=== PATIENT | female | born 1985 | race Caucasian/White ===

== ENCOUNTER 2017-05-09 02:58 | Emergency (ER) | payer OTHER, SELFPAY ==
[2017-05-09 03:00] VITALS: BP 100/75; PULSE 122; RESP 17; TEMP 36.4; O2SAT 98; BMI 20.7
--- NOTE | 2017-05-09 03:11 | ED.VISSUMM ---
- ER Visit Summary Date of Service: 05/09/17 Chief Complaint: Nausea, dehydration History of Present Illness: The patient is a 31 F with history of Crohn's disease presents to the emergency department 3 days of nausea, decreased p.o. intake, and 3 episodes of vomiting starting tonight. The patient does have a history of Crohn's disease. She follows with GI at [facility]. She is on Stelara for her Crohn's. She states that over the past 3 days, she has had some worsening nausea and decreased oral intake. Tonight, she began to have some emesis. She thrown up approximately 3 times. There is been no blood in the emesis. She has still been having output in her ostomy. She states this feels very different than when she has had obstruction before. She denies any fevers but does admit to some chills. She states that she took Zofran at home with little relief. She denies any recent change in medication. She states she has not been on steroids for some time. Physical Examination: Vital signs reviewed General: Well-nourished, well-developed Head: Normocephalic, atraumatic Eyes: Pupils equal and reactive, extraocular muscles intact Neck, supple, no lymphadenopathy Heart: Regular rate and rhythm Respiratory: No distress, clear bilaterally Abdomen: Soft, nontender, nondistended, no peritoneal signs ostomy site intact with output in the bag Back: Nontender Extremities: Nontender, no edema, no cords Skin: Normal color no rash Neuro: Alert and oriented, no focal or lateralizing deficits Test Results: Labs do show contraction with mild dehydration. was negative. Emergency Department Course and Treatment: The patient is a history of Crohn's disease but really has no significant abdominal tenderness. She states it does not feel like when she has obstruction before. IV was established. Patient analgesics and antiemetics. Her labs do show contraction, but really no acute abnormality. In review with the patient, she was concerned because she thinks she may have had a miscarriage. She had a positive home test 7 days ago and then started with some mild vaginal bleeding. She took another test and was negative. She states that she had to be admitted to the hospital before because of retained products. I did obtain a serum quant which was negative. The patient again has no abdominal tenderness. Really do not feel that this was a spurious home positive test, but she has a negative test here. With fluids and antiemetics her symptoms are markedly improved. Her heart rate is down to normal limits. I do feel that this patient is safe for outpatient therapy. I will prescribe her Phenergan at her request. She is counseled on concerning symptoms and reasons to return. The patient will be discharged home. Treatment Plan: [] Disposition: Discharge Impression:. Dehydration 2. Nausea and vomiting This note was generated with [employer] dictation software. It may contain incorrect words, spelling, and punctuation that were not noted in review of the chart prior to signing ED Disposition - Plan for ED Patient: Disposition: Home or Assisted Living Chief Complaint: Nausea/Vomiting Instructions: ED Nausea Vomiting Prescriptions: ProMETHAzine [Phenergan] 25 mg PO Q6H PRN PRN #10 tab PRN Reason: Nausea Referrals: Care Physician,No Primary [Primary Care Provider] -
[2017-05-09] MEDS: 0.9% Normal Saline 1,000 ML 1000 ML IV (03:12)
[2017-05-09 03:34] LABS: Hematocrit 49.1 % (37-47); Hemoglobin 17.5 g/dl (12.0-15.0); Mean Corp Hgb Conc 35.6 g/gl (32-36); Mean Corpuscular Hgb 29.1 pg (27.0-32.0); Mean Corpuscular Volume 81.6 fL (81-99); Mean Platelet Vol. 9.1 fl (6.2-12.0); Platelet Count 475 K/mm3 (150-450); RBC Distribution Width SD 44.3 fl (35.1-43.9); Red Blood Count 6.02 M/mm3 (4.2-5.4); White Blood Count 11.7 K/mm3 (4.4-11.0)
[2017-05-09 03:35] LABS: Differential Indicated MANUAL DIFF; POSITIVE COUNT YES; POSITIVE DIFFERENTIAL NO; POSITIVE MORPHOLOGY YES
[2017-05-09 03:39] LABS: ALB/GLOB Ratio 0.9 RATIO (0.9-2.4); AST(SGOT) 35 U/L (15-37); Alanine Aminotransfer ALT/SGPT 45 U/L (13-56); Albumin, Serum 4.1 g/dL (3.2-5.0); Alkaline Phosphatase 189 U/L (45-117); Anion Gap 13 (5-15); BUN 20 mg/dL (7-18); BUN/Creat Ratio 13.6 RATIO (10-20); Chloride 98 mmol/L (98-107); Creatinine, Serum 1.47 mg/dL (0.55-1.02); EST Glomerular Filtration Rate 44 mL/min (>60); Est Glom Filt Rate - Afr Amer 54 mL/min (>60); Estimated Creatinine Clearance 38.52 ml/min; Globulin 4.5 g/dL (2.2-4.2); Glucose 120 mg/dL (74-106); Potassium 3.9 mmol/L (3.5-5.1); Protein, Total 8.6 g/dL (6.4-8.2); Sodium Level 130 mmol/L (136-145)
[2017-05-09 03:40] LABS: Bacteria 0 SEEN /hpf (None Seen); Mucous, Urine 0 SEEN /hpf (<or=2+)
[2017-05-09 03:53] LABS: Color, Urine Yellow (Yellow); Glucose, Dipstick Normal (Normal); Ketone-Dipstick Negative (Negative); Leukocyte Esterase-Dipstick 500 /ul (Negative); Nitrite-Dipstick Negative (Negative); Occult Blood-Urine 250 /ul (Negative); Protein-Dipstick 100 mg/dl (Negative); Urine Bilirubin Dipstick Negative (Negative); Urine Clarity Sl. Cloudy (Clear); Urine Urobilinogen Normal (Normal)
[2017-05-09 03:59] LABS: Red Blood Cells-Urine 0-5 SEEN /hpf (0-5); Squamous Epithelial Cells - UA > 100 SEEN /hpf (5-10); White Blood Cells 10-25 SEEN /hpf (0-5)
[2017-05-09] MEDS: Lactated Ringers 1,000 ML 999 ML IV (04:03)
[2017-05-09 04:19] LABS: Lymphocyte 23 % (19-41); Metamyelocyte 1 % (0-1); Monocyte 12 % (0-10); Neutrophil-Band 2 % (0-5); Neutrophil-Segmented 62 % (47-70); Total Cells Counted 100 (MANUAL DIFF)
[2017-05-09 04:20] LABS: Platelet Estimate SLT INC (ADEQ); Platelet Morphology LARGE; Red Cell Morphology NORM C+C NORMAL (NORM C&C)
[2017-05-09 04:22] LABS: Absolute Lymphocyte Count 2.69 X10^3/ul (0.83-4.51); Absolute Neutrophil Count 7.5 X10^3/uL (2.0-7.7)
[2017-05-09 04:44] LABS: hCG Titer Quant., Serum < 1 mIU/mL (<9 non-preg)
[2017-05-09 05:18] VITALS: BP 97/56; PULSE 104; RESP 17; O2SAT 100
[2017-05-09 06:12] VITALS: BP 121/64; PULSE 73; RESP 15; O2SAT 97
[2017-05-09 15:28] LABS: Pathologist Review Reviewed
== END 2017-05-09 06:13 | disposition home or self-care (01) ==
PROVIDERS: Emergency Provider Emergency Medicine
DX: E86.0 Dehydration (principal); R11.2 Nausea with vomiting, unspecified; K50.90 Crohn's disease, unspecified, without complications
CPT/HCPCS: 80053; 81001; 84702; 85025; 96361; 96374; 96375; 99283; J7030; J7120

== ENCOUNTER 2018-07-22 17:11 | Observation (INO) | payer OTHER, SELFPAY ==
[2018-07-22 17:13] VITALS: BP 86/60; PULSE 125; RESP 18; TEMP 36.4; O2SAT 98; BMI 21.6
--- NOTE | 2018-07-22 19:06 | ED.DCSUM_ITS ---
- ER Visit Summary Date of Service: 07/22/18 Chief Complaint: Nausea and vomiting History of Present Illness: The patient is a 32 F presenting with nausea and vomiting. Patient states she began having a sore throat on . She then developed nausea and vomiting. She states when she starts to get dehydrated she usually requires IV fluids. She has a history of Crohn's disease and has an ostomy in place. She denies increased output from her ostomy. Denies blood in her stool. Denies abdominal pain. She has had subjective fever. She started taking leftover amoxicillin when her throat started hurting. Denies other complaints. Physical Examination: Vitals are stable. Blood pressure 86/60, heart rate 125. Patient is afebrile. Alert no acute distress. HEENT exam dry mucous membranes Neck is supple. Lungs are clear and equal bilaterally. Heart is regular and tachycardic Abdomen is soft nontender nondistended. No guarding or rebound. Ostomy Extremities are unremarkable. Skin is warm and dry. No focal neurologic deficit. Remainder of exam is unremarkable. Emergency Department Course and Treatment: Patient states her normal blood pressure ranges in the 80s. Patient was given IV fluids, Zofran. CBC shows white count 11.7. Chemistries show sodium 125, BUN 33, creatinine 2.12. Lactic acid 2.7. Rapid strep is negative. Repeat blood pressure is 111/60, heart rate 112. Will discuss with hospitalist for admission. Disposition: Admission Impression: Nausea, vomiting, dehydration, ELPIDIO, hyponatremia This note was generated with [employer] dictation software. It may contain incorrect words, spelling, and punctuation that were not noted in review of the chart prior to signing ED Disposition - Plan for ED Patient: Referrals: Care Physician,No Primary [Primary Care Provider] -
[2018-07-22 19:11] VITALS: BP 111/60; PULSE 112; RESP 16; O2SAT 100
[2018-07-22 19:19] LABS: Anion Gap 9 (5-15); BUN 33 mg/dL (7-18); BUN/Creat Ratio 15.6 RATIO (10-20); Calcium,Total 9.4 mg/dL (8.5-10.1); Chloride 96 mmol/L (98-107); Creatinine, Serum 2.12 mg/dL (0.55-1.02); EST Glomerular Filtration Rate 29 mL/min (>60); Est Glom Filt Rate - Afr Amer 35 mL/min (>60); Estimated Creatinine Clearance 27.53 ml/min; Glucose 132 mg/dL (74-106); Potassium 3.9 mmol/L (3.5-5.1); Sodium Level 125 mmol/L (136-145)
[2018-07-22] MEDS: 0.9% Normal Saline 1,000 ML 1000 ML IV (19:31)
[2018-07-22] MEDS: Ondansetron 4 MG/2 ML Vial IV (19:31)
[2018-07-22 19:49] LABS: Differential Indicated MANUAL DIFF; Hematocrit 52.9 % (37-47); Mean Corp Hgb Conc 35.5 g/gl (32-36); Mean Corpuscular Hgb 28.4 pg (27.0-32.0); Mean Corpuscular Volume 79.8 fL (81-99); Mean Platelet Vol. 9.3 fl (6.2-12.0); POSITIVE COUNT YES; POSITIVE DIFFERENTIAL NO; POSITIVE MORPHOLOGY YES; Platelet Count 370 K/mm3 (150-450); RBC Distribution Width CV 14.3 % (11.6-14.6); Red Blood Count 6.63 M/mm3 (4.2-5.4); White Blood Count 11.7 K/mm3 (4.4-11.0)
[2018-07-22 19:50] LABS: Hemoglobin 18.8 g/dl (12.0-15.0)
--- NOTE | 2018-07-22 19:52 | ED.RN ---
notified Dr. Ruiz of b 18.8
[2018-07-22 19:59] LABS: Internal QC Validated? YES +Cl - CLEAR BKGD; Pregnancy, Serum, hCG Quali. NEGATIVE Negative
[2018-07-22 20:08] LABS: Basophil 2 % (0-1); Lymphocyte 24 % (19-41); Monocyte 11 % (0-10); Neutrophil-Segmented 63 % (47-70); Total Cells Counted 100 (MANUAL DIFF)
[2018-07-22 20:11] LABS: Lactic Acid 2.7 mmol/L (0.4-2.0); Platelet Estimate ADEQUATE (ADEQ); Red Cell Morphology NORM C+C NORMAL (NORM C&C)
--- NOTE | 2018-07-22 20:24 | ED.RN ---
DR AGEE NOTIFIED OF LACTIC RESULTS
[2018-07-22 20:44] LABS: Mucous, Urine 0 SEEN /hpf (<or=2+); Red Blood Cells-Urine 0 SEEN /hpf (0-5)
--- NOTE | 2018-07-22 20:44 | PCM.HP.STD ---
Problem List (1) Acute gastroenteritis Status: Acute (2) Hyponatremia Status: Acute History of Present Illness Date of Admission: 07/22/18 Chief Complaint: nausea and vomitting The patient is a 32 year old F with a significant history of Crohn's disease status post colostomy who presented to the emergency department with nausea and vomiting x1 day. Her symptoms started with sore throat a day before admission. She took some leftover Antibiotics at home. Patient reported that typically she gets IV fluids for dehydration under similar situations and is discharged home. However because of her low sodium patient was admitted. Past Medical History Medical History: Medical History (Last Updated 07/22/18 @ 21:06 by Samuel Alaniz MD) Crohn's disease K50.90 Allergies vancomycin Allergy (Verified 07/22/18 17:12) Anaphylaxis HUMARA Allergy (Uncoded 07/22/18 17:12) Other Home Medications: Ambulatory Orders Medication Instructions Recorded proMETHazine tablet [Phenergan] 25 mg PO Q6H PRN PRN #10 tab 05/09/17 Prednisone 3 mg PO DAILY 07/22/18 Ustekinumab [Stelara] 90 mg SC PRN PRN 07/22/18 Surgical History: appendectomy, cholecystectomy, colectomy Lives: Spouse/ Significant Other Smoking Status: Never smoker Alcohol: Rare - *Family History Maternal History Items: - - Denies any maternal or paternal medical history. Paternal History Items: - - Denies any maternal or paternal medical history. Review of Systems Constitutional: Denies: Chills, Fever, Weight Change HEENT: Denies: Head Aches, Sinus Congestion, Sinus Drainage Cardiovascular: Denies: Chest Pain, Palpitations Respiratory: Denies: Cough, Shortness of breath at rest, Sputum production Gastrointestinal: Reports: Nausea, Vomiting. Denies: Abdominal Pain Genitourinary: Denies: Dysuria Musculoskeletal: Denies: Joint Pain, Joint Tenderness Skin: Denies: Rash, Wounds Neurological: Denies: Numbness, Tingling, Focal weakness Psychiatric: Denies: Anxiety, Depression, Homicidal Ideations, Suicidal Ideations Hematologic/ Lymphatic: Denies: Easy Bruising, Easy Bleeding VTE Information - Inpt Only VTE Present on Admission: No VTE Mechan Device Prophylaxis: None VTE Pharm Prophylaxis ordered?: No Reason prophylaxis not ordered:: Treatment Not Indicated - Low risk. Ambulate. Patient Problems: Active and Suspected Problems (Last Updated 07/22/18 @ 21:06 by Samuel Alaniz MD) Acute gastroenteritis (Acute) Hyponatremia (Acute) - Physical Exam General: Alert, Oriented x3, Cooperative HEENT: Atraumatic, PERRLA, EOMI, Normocephalic Neck: Supple, No JVD, Negative Carotid Bruits Lungs: Clear to auscultation, Normal air movement Cardiovascular: Regular rate, No murmurs Abdomen: Bowel Sounds Present, Soft, Non Tender, - - Colostomy bag in place Extremities: No edema, Capillary Refill Less than 3 Seconds Skin: No rashes, No breakdown Musculoskeletal: No Tenderness to Palpation of Joints or Extremities Neurological: Cranial nerves II-XII grossly intact Psych/Mental Status: Normal Affect, Appropriate Vital Signs Temp Pulse Resp BP Pulse Ox 97.6 F L 112 H 16 111/60 100 07/22/18 17:13 07/22/18 19:11 07/22/18 19:11 07/22/18 19:11 07/22/18 19:11 Oxygen Delivery Method Room Air Weight: 45.359 kg Body Mass Index (BMI) 21.6 Microbiology Past 72 Hours 07/22/18 19:05 Group A Streptococcus Rapid Screen - Preliminary Mucosa - Throat Laboratory Tests Past 24 Hrs 07/22/18 07/22/18 07/22/18 18:55 18:55 19:20 WBC 11.7 H RBC 6.63 H Hgb 18.8 H* Hct 52.9 H MCV 79.8 L MCH 28.4 MCHC 35.5 RDW 14.3 RDW Differential 41.0 Plt Count 370 MPV 9.3 Neut % (Auto) Not Reportable Absolute Neuts (auto) Not Reportable Total Counted 100 Neutrophils % (Manual) 63 Lymphocytes % (Manual) 24 Monocytes % (Manual) 11 H Basophils % (Manual) 2 H Diff Path Review May foll Platelet Estimate ADEQUATE RBC Morphology NORM C+C Sodium 125 L Potassium 3.9 Chloride 96 L Carbon Dioxide 20.0 L Anion Gap 9 BUN 33 H Creatinine 2.12 H Estim Creat Clear Calc 27.53 Est GFR (MDRD) Af Amer 35 L Est GFR (MDRD) Non-Af 29 L BUN/Creatinine Ratio 15.6 Glucose 132 H Lactic Acid Calcium 9.4 Serum , Qual NEGATIVE Urine Color Urine Clarity Urine pH Ur Specific [place] Urine Protein Urine Glucose (UA) Urine Ketones Urine Occult Blood Urine Nitrite Urine Bilirubin Urine Urobilinogen Ur Leukocyte Esterase Urine RBC Urine WBC Ur Squamous Epith Cells Urine Bacteria Urine Mucus 07/22/18 07/22/18 19:20 20:40 WBC RBC Hgb Hct MCV MCH MCHC RDW RDW Differential Plt Count MPV Neut % (Auto) Absolute Neuts (auto) Total Counted Neutrophils % (Manual) Lymphocytes % (Manual) Monocytes % (Manual) Basophils % (Manual) Diff Path Review Platelet Estimate RBC Morphology Sodium Potassium Chloride Carbon Dioxide Anion Gap BUN Creatinine Estim Creat Clear Calc Est GFR (MDRD) Af Amer Est GFR (MDRD) Non-Af BUN/Creatinine Ratio Glucose Lactic Acid 2.7 H Calcium Serum , Qual Urine Color Pending Urine Clarity Pending Urine pH Pending Ur Specific [place] Pending Urine Protein Pending Urine Glucose (UA) Pending Urine Ketones Pending Urine Occult Blood Pending Urine Nitrite Pending Urine Bilirubin Pending Urine Urobilinogen Pending Ur Leukocyte Esterase Pending Urine RBC Pending Urine WBC Pending Ur Squamous Epith Cells Pending Urine Bacteria Pending Urine Mucus Pending Assessment/Plan All Active Problems (Last Updated 07/22/18 @ 21:06 by Samuel Alaniz MD) Acute gastroenteritis (Acute) Hyponatremia (Acute) The patient is a 32 year old F with a significant history of Crohn's disease status post colostomy who presented to the emergency department with nausea and vomiting; and sore throat and found to have hyponatremia. Acute gastroenteritis Likely viral etiology Patient received a total of 2000 mL of normal saline the emergency department. Patient was continued on normal saline with 20 mEq of potassium going at 100 mLs per hour. Later this was cut back to 50ml/hr to slow done the rate of increase of sodium. Supportive treatment with IV Zofran. Regular diet if patient can tolerate. Check magnesium level Noted to have lactic acid of 2.7; trend Hyponatremia Sodium on presentation was 125 IV infusion as above We will check BMP every 4 hours. ELPIDIO on CKD On presentation her creatinine was 2.12. Review of old records shows that on 05/09/2017 her creatinine was 1.47 Likely hypovolemia from acute gastroenteritis Gentle IV hydration Trend BMP Avoid nephrotoxics. Crohn's disease It does not appear that patient is in a flare. Home prednisone and Ustekinumab continued Hypocalcemia Initial calcium on BMP was 9.4 Later Calcium level was 6.9 on BMP; likely spurious. Check albumin level. On Q4 BMP IV site pain Patient complaining of IV site pain and asking for medication Tylenol as needed ordered. Insomnia Benadryl ordered DVT prophylaxis Encourage ambulation. Code Visit OBSV E&M: 67997 Initial observation care L3
[2018-07-22 20:51] LABS: Color, Urine Yellow (Yellow); Glucose, Dipstick Normal (Normal); Ketone-Dipstick Negative (Negative); Leukocyte Esterase-Dipstick 25 /ul (Negative); Nitrite-Dipstick Negative (Negative); Occult Blood-Urine 10 /ul (Negative); Protein-Dipstick 30 mg/dl (Negative); Urine Bilirubin Dipstick Negative (Negative); Urine Clarity Sl. Cloudy (Clear); Urine Urobilinogen Normal (Normal)
[2018-07-22 21:00] VITALS: BP 115/74; PULSE 111; RESP 20; O2SAT 100
[2018-07-22] MEDS: 0.9% Normal Saline 1,000 ML 500 ML IV (21:00)
[2018-07-22] MEDS: Acetaminophen 325 MG Tablet 650 MG PO (21:00)
[2018-07-22 21:06] VITALS: BP 115/74; PULSE 111; RESP 20; O2SAT 100
[2018-07-22 21:11] LABS: Squamous Epithelial Cells - UA 10-25 SEEN /hpf (5-10); White Blood Cells 0-5 SEEN /hpf (0-5)
[2018-07-22 21:12] LABS: Bacteria RARE /hpf (None Seen)
[2018-07-22 21:57] VITALS: BP 97/71; PULSE 100; RESP 18; TEMP 36.4; O2SAT 99
[2018-07-22 22:00] VITALS: BMI 21.8
[2018-07-22 23:27] LABS: Reflex Lactate? Y
[2018-07-22 23:56] VITALS: PULSE 106
[2018-07-23 00:03] LABS: Anion Gap 9 (5-15); BUN 27 mg/dL (7-18); BUN/Creat Ratio 17.4 RATIO (10-20); Calcium,Total 6.9 mg/dL (8.5-10.1); Chloride 111 mmol/L (98-107); Creatinine, Serum 1.55 mg/dL (0.55-1.02); EST Glomerular Filtration Rate 41 mL/min (>60); Est Glom Filt Rate - Afr Amer 50 mL/min (>60); Estimated Creatinine Clearance 37.94 ml/min; Glucose 105 mg/dL (74-106); Magnesium 1.7 mg/dL (1.6-2.6); Potassium 3.8 mmol/L (3.5-5.1); Sodium Level 134 mmol/L (136-145)
[2018-07-23 00:35] LABS: Lactic Acid 1.7 mmol/L (0.4-2.0)
[2018-07-23] MEDS: DiphenhydrAMINE 25 MG Capsule PO (00:59)
[2018-07-23] MEDS: predniSONE 1 MG Tablet 3 MG PO (01:00)
[2018-07-23 04:23] VITALS: BP 109/62; PULSE 94; RESP 18; TEMP 36.6; O2SAT 97
[2018-07-23 05:08] VITALS: PULSE 95
[2018-07-23 05:32] LABS: Albumin, Serum 2.9 g/dL (3.2-5.0); Anion Gap 8 (5-15); BUN 23 mg/dL (7-18); Calcium,Total 7.4 mg/dL (8.5-10.1); Chloride 112 mmol/L (98-107); Creatinine, Serum 1.44 mg/dL (0.55-1.02); EST Glomerular Filtration Rate 45 mL/min (>60); Est Glom Filt Rate - Afr Amer 54 mL/min (>60); Estimated Creatinine Clearance 40.84 ml/min; Glucose 102 mg/dL (74-106); Potassium 4.3 mmol/L (3.5-5.1); Sodium Level 137 mmol/L (136-145)
[2018-07-23 07:32] VITALS: BP 104/61; PULSE 75; RESP 18; TEMP 36.6; O2SAT 100
[2018-07-23 09:37] LABS: Anion Gap 7 (5-15); BUN 19 mg/dL (7-18); BUN/Creat Ratio 12.4 RATIO (10-20); Calcium,Total 7.4 mg/dL (8.5-10.1); Chloride 112 mmol/L (98-107); Creatinine, Serum 1.53 mg/dL (0.55-1.02); EST Glomerular Filtration Rate 42 mL/min (>60); Est Glom Filt Rate - Afr Amer 51 mL/min (>60); Estimated Creatinine Clearance 38.44 ml/min; Glucose 104 mg/dL (74-106); Potassium 3.8 mmol/L (3.5-5.1); Sodium Level 139 mmol/L (136-145)
[2018-07-23 10:00] VITALS: PULSE 122
--- NOTE | 2018-07-23 10:17 | NURSING ---
PT STATES IV SITE TENDER. NO EDEMA, REDNESS, WARMTH NOTED @ SITE. OFFERED TO ATTEMPT TO CHANGE IV SITE, PT DECLINED @ THIS TIME. WARM COMPRESS PLACED FOR COMFORT.
--- NOTE | 2018-07-23 11:04 | DCINST_ITS ---
- Discharge Diagnoses Current Active Problems: Current Active and Chronic Problems (Last Updated 07/22/18 @ 21:06 by Samuel Alaniz MD) Acute gastroenteritis (Acute) Hyponatremia (Acute) You will use the following diet at home:: No restrictions Your food should be the consistency of: Regular Your liquids should be the consistency of: Regular/Thin Discharge Activity: Return to Normal Activity Weight Bearing Status: Full weight bearing Allergies/Adverse Reactions: Allergies vancomycin Allergy (Verified 07/22/18 17:12) Anaphylaxis HUMARA Allergy (Uncoded 07/22/18 17:12) Other Medications to take at Discharge proMETHazine tablet [Phenergan tablet] 25 mg PO Q6H PRN PRN #10 tab 05/09/17 Prednisone 3 mg PO DAILY 07/22/18 Ustekinumab [Stelara] 90 mg SC PRN PRN 07/22/18 Primary Care Physician: Care Physician,No Primary [Primary Care Provider] - Please follow up with your Primary Care Physician in: as schdeuled Test Results: Test results from this visit will be discussed in further detail at your follow- up appointment, if applicable.
[2018-07-23 11:31] VITALS: BP 89/65; PULSE 111; RESP 18; TEMP 36.8; O2SAT 100
[2018-07-23 11:55] VITALS: BP 89/65; PULSE 111; RESP 18; TEMP 36.8; O2SAT 100
[2018-07-23 14:48] LABS: Pathologist Review Reviewed
--- NOTE | 2018-07-24 19:08 | DS.PCM_ITS ---
Discharge Date and Diagnosis Date of Admission: 07/22/18 Date of Discharge: 07/23/18 - Primary Discharge Diagnosis #1 acute viral gastroenteritis #2 hyponatremia #3 acute kidney injury on a backdrop of chronic kidney disease #4 Crohn's disease #5 increased lactic acid-probably secondary to acute kidney injury Hospital Course and Treatment Consultations 07/22/18 22:18 Consult: Onc/Wound/chiropractic doctor Routine Comment: Reason for Consult:: ostomy Operations: None Procedures: None Summary of Care Provided: The patient is a 32 year old F was seen in the emergency room at [facility] with a chief complaint of nausea and vomiting. She also complained of having a sore throat. Work-up in the emergency room included labs which showed her white blood cell count to be 11.7, sodium was 125, BUN was 33, creatinine was 2.12, lactic acid was 2.7. Patient's rapid strep test was negative. Patient was placed and observation status on MedSur 3 for acute kidney injury and acute viral gastroenteritis, she was given IV fluids and labs were monitored, creatinine improved during her hospital stay and her vomiting resolved. On 07/23/2018, patient was seen and examined: On examination she appeared in good health and spirits. Vital signs as documented. Skin warm and dry and without overt rashes. Neck without JVD. Lungs clear. Heart exam notable for regular rhythm, normal sounds and absence of murmurs, rubs or gallops. Abdomen unremarkable and without evidence of organomegaly, masses, or abdominal aortic enlargement. Extremities nonedematous, ostomy is present. Neuro: Cranial nerves II through XII are grossly intact, no focal motor deficits were noted, sensation to light touch and pinprick is intact. Psych: Patient is alert and oriented x3, she does not appear anxious or depressed On 07/23/2018, patient was seen and examined and felt to be in stable condition for discharge home - Physical Exam Vital Signs Temp Pulse Resp BP Pulse Ox 98.2 F 111 H 18 89/65 L 100 07/23/18 11:55 07/23/18 11:55 07/23/18 11:55 07/23/18 11:55 07/23/18 11:55 Oxygen Delivery Method Room Air Weight: 45.7 kg Body Mass Index (BMI) 21.8 Intake and Output for Last 24 Hours 0507/23/18 07/24/18 23:59 23:59 23:59 Intake Total 954.3 / 954.3 Output Total 925 / 925 Balance 29.3 / 29.3 Microbiology Past 72 Hours 07/22/18 19:05 Group A Streptococcus Rapid Screen - Preliminary Mucosa - Throat Discharge Activity: Return to Normal Activity Weight Bearing Status: Full weight bearing Home Medications: Medications to take at Discharge proMETHazine tablet [Phenergan tablet] 25 mg PO Q6H PRN PRN #10 tab 05/09/17 Prednisone 3 mg PO DAILY 07/22/18 Ustekinumab [Stelara] 90 mg SC PRN PRN 07/22/18 Primary Care Physician: Care Physician,No Primary [Primary Care Provider] - Please follow up with your Primary Care Physician in: as schdeuled Disposition: Home Minutes spent on discharge:: 32 Patient Condition:: Stable Medical Necessity - Tobacco Use Smoking Status: Never smoker Meaningful Use Info Meaningful Use Diagnoses (Choose all that apply): None applicable Code Visit OBSV E&M: 23032 Observation care discharge
== END 2018-07-23 11:53 | disposition home or self-care (01) ==
LOC: ED 19:29 → MS3 21:27
PROVIDERS: Admitting Provider Hospitalist; Emergency Provider Emergency Medicine; Referring Provider Hospitalist; Visit Provider Internal Medicine
DX: E86.0 Dehydration (principal); A08.4 Viral intestinal infection, unspecified; E87.1 Hypo-osmolality and hyponatremia; N17.9 Acute kidney failure, unspecified; K50.90 Crohn's disease, unspecified, without complications; N18.9 Chronic kidney disease, unspecified; Z79.899 Other long term (current) drug therapy; Z79.52 Long term (current) use of systemic steroids
CPT/HCPCS: 36415; 80048; 81001; 82040; 83605; 83735; 84703; 85025; 87880; 96374; 99218; 99285; J7030; A4216; G0378; J2405

== ENCOUNTER 2019-09-04 17:26 | Emergency (ER) | payer OTHER, SELFPAY ==
[2018-07-22 22:00] VITALS: BMI 21.8
[2019-09-04 17:28] VITALS: BP 104/70; PULSE 78; RESP 18; TEMP 36.6; O2SAT 100; BMI 16.2
--- NOTE | 2019-09-04 18:21 | CT_ITS ---
STUDY: CT ABDOMEN AND PELVIS WITHOUT CONTRAST REASON FOR EXAM: Female, 33 years old. Lower abdominal pain RADIATION DOSAGE (If Supplied By Facility): CTDIvol = ( 6.04 ) mGy, DLP = ( 244.60 ) mGycm TECHNIQUE: Transaxial images were obtained from the dome of the diaphragm to the symphysis pubis without oral contrast, and without intravenous contrast. Sagittal and coronal images were reconstructed. Individualized dose optimization techniques were used for this CT. COMPARISON: None. FINDINGS: Examination is mildly/moderately limited due to lack of IV contrast. Diagnostic information is available. Lung bases are clear. There is a 3 mm stone in the left renal lower pole calyx. There is an ill-defined lesion in the upper calyx/pole. There is no hydronephrosis. The right collecting system is clear. Evaluation of gastric intestinal tract is limited due to lack of therapeutic cleansing, distention and IV contrast. There is no intestinal obstruction. There is left lower quadrant ileostomy. There is ill-defined minimal inflammatory change at the root of the mesentery with increased number of normal-sized lymph nodes. Liver, spleen adrenals and pancreas are normal. There is mild levoscoliosis without lateral spinal displacement. Mineralization is diffusely decreased with multilevel endplate compressive changes. There are multiple spinal benign hemangiomata. CT/Abdomen/Pelvis without Cont IMPRESSION: 1. 3 mm left renal lower pole nonobstructing stone. 2. Questionable left upper pole renal lesion, incompletely evaluated, refer to ultrasonography for further assessment. 3. Mesenteritis, a nonspecific condition of unclear significance, this can be seen with enteritis. 4. Osteoporosis, spinal compressions, endocrinology referral is advised. 5. Expected appearance of left lower quadrant ileostomy. Electronically Signed: Shirley Hines, at 19:36 EDT Tel , Service support ,
[2019-09-04 18:46] VITALS: BP 104/70; PULSE 78; RESP 18; TEMP 36.6; O2SAT 100
[2019-09-04] MEDS: 0.9% Normal Saline 1,000 ML 1000 ML IV (18:46)
[2019-09-04 18:59] LABS: Mucous, Urine 0 SEEN /hpf (<or=2+)
[2019-09-04 19:00] LABS: Absolute Lymphocyte Count 2.95 X10^3/uL (0.83-4.51); Absolute Neutrophil Count 4.5 X10^3/uL (2.0-7.7); Basophil# 0.09 X10^3/uL; Basophil% 1.1 % (0-1); Eosinophil# 0.39 X10^3/uL; Eosinophils% 4.6 % (0-5); Hematocrit 46.1 % (37-47); Hemoglobin 15.3 g/dL (12.0-15.0); Lymphocyte # 2.95 X10^3/ul (4.0); Lymphocyte % 34.5 % (19-41); Mean Corp Hgb Conc 33.2 g/dL (32-36); Mean Corpuscular Hgb 26.6 pg (27.0-32.0); Mean Platelet Vol. 9.1 fl (6.2-12.0); Monocyte# 0.59 X10^3/uL; Monocyte% 6.9 % (0-10); NRBC Flagged by Analyzer 0 % (0-5); Neutrophil # 4.51 X10^3/uL (2.7-7.7); Neutrophil % 52.5 % (47-70); Platelet Count 433 K/mm3 (150-450); RBC Distribution Width CV 13.5 % (11.6-14.6); RBC Distribution Width SD 38.5 fl (35.1-43.9); Red Blood Count 5.76 M/mm3 (4.2-5.4); White Blood Count 8.6 K/mm3 (4.4-11.0)
[2019-09-04 19:02] LABS: Color, Urine Yellow (Yellow); Glucose, Dipstick Normal (Normal); Ketone-Dipstick Negative (Negative); Leukocyte Esterase-Dipstick 25 /ul (Negative); Nitrite-Dipstick Negative (Negative); Occult Blood-Urine 10 /ul (Negative); Protein-Dipstick 15 mg/dl (Negative); Specific Gravity, Urine 1.015 (1.002-1.030); Urine Bilirubin Dipstick Negative (Negative); Urine Clarity Sl. Cloudy (Clear); Urine Urobilinogen Normal (Normal)
[2019-09-04 19:18] LABS: Internal QC Validated? YES +Cl - CLEAR BKGD; Pregnancy, Serum, hCG Quali. NEGATIVE Negative
[2019-09-04 19:23] LABS: AST(SGOT) 26 U/L (15-37); Alanine Aminotransfer ALT/SGPT 30 U/L (13-56); Albumin, Serum 4.2 g/dL (3.2-5.0); Alkaline Phosphatase 189 U/L (45-117); Anion Gap 7 (5-15); BUN 15 mg/dL (7-18); BUN/Creat Ratio 12.7 RATIO (10-20); Calcium,Total 9.3 mg/dL (8.5-10.1); Chloride 106 mmol/L (98-107); Creatinine, Serum 1.18 mg/dL (0.55-1.02); EST Glomerular Filtration Rate 56 mL/min (>60); Est Glom Filt Rate - Afr Amer 68 mL/min (>60); Estimated Creatinine Clearance 36.76 ml/min; Globulin 4.3 g/dL (2.2-4.2); Glucose 93 mg/dL (74-106); Potassium 3.1 mmol/L (3.5-5.1); Protein, Total 8.5 g/dL (6.4-8.2); Sodium Level 136 mmol/L (136-145)
--- NOTE | 2019-09-04 19:23 | ED.VISSUMM ---
- ER Visit Summary Date of Service: 09/04/19 Chief Complaint: Abdominal pain History of Present Illness: The patient is a [address] Bonds. She has a history of Crohn's disease and kidney stones. She reports that she has pain lower right that began 4 to 5 days ago. Is gradually gotten worse. Is an aching pain is 5-10 in severity. It is worsened by urinating. Is relieved by nothing. She denies any nausea or vomiting. No diarrhea. She has an ostomy that is draining normally. There is been no blood in the drainage. She does complain of dysuria and frequency. She states she has had similar symptoms previously with kidney stones. Physical Examination: Vitals: Stable. Afebrile. General: Well-nourished and well-developed. Head: Normocephalic atraumatic. Neck: Supple, no lymphadenopathy. No JVD. Nontender. Cardiovascular: Regular rate and rhythm. No murmurs. Respiratory: No respiratory distress. Clear to auscultation bilaterally. Abdominal: Soft, mild right lower quadrant tenderness palpation, nondistended, normal bowel sounds. No guarding, rebound, or peritoneal signs. Colostomy is draining brown liquid stool without blood. Back: Nontender. Extremities: Nontender, no edema. Skin: Normal color, no rash. Neurologic: Alert and oriented ?3. Cranial nerves II through XII are intact. Normal strength and sensation. Psych: Normal affect. Test Results: CBC shows a hemoglobin of 15.3. Chem-7 shows a potassium of 3.1 and creatinine 1.18. LFTs show total protein of 8.5, globulin 4.3, alk phos of 189. UA shows leukocytes, occult blood, and 1+ bacteria. test is negative. Clinical Impression(s) from Imaging Studies Abdomen/Pelvis CT 09/04/19 18:21 IMPRESSION: 1. 3 mm left renal lower pole nonobstructing stone. 2. Questionable left upper pole renal lesion, incompletely evaluated, refer to ultrasonography for further assessment. 3. Mesenteritis, a nonspecific condition of unclear significance, this can be seen with enteritis. 4. Osteoporosis, spinal compressions, endocrinology referral is advised. 5. Expected appearance of left lower quadrant ileostomy. Electronically Signed: Shirley Hines, at 19:36 EDT Tel , Service support , Emergency Department Course and Treatment: Patient is resting comfortably. She refused pain or nausea medicines. Treatment Plan: Patient will be discharged with Zofran and Lortab elixir. 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 We also discussed the left upper pole renal lesion and she already sees nephrology. She is instructed to follow-up them for this. Return to the emergency department for any worsening symptoms. Disposition: To home in improved and stable condition. Impression: 1. Right lower quadrant pain, uncertain cause. 2. History of Crohn's disease. 3. Left upper pole renal lesion, uncertain significance. 4. Hypokalemia. This note was generated with [employer] dictation software. It may contain incorrect words, spelling, and punctuation that were not noted in review of the chart prior to signing ED Disposition - Plan for ED Patient: Instructions: ED Abdominal Pain Unkn Cause Fem Prescriptions: Hydrocodone/Acetaminophen [Hydrocodone-Acetamn 7.5-325/15] 10 ml PO Q6H PRN PRN 3 Days #100 ml PRN Reason: Pain Score 6-10/10 Prescription Printed Ondansetron [Zofran Odt] 4 mg PO Q8H PRN PRN #10 tab PRN Reason: Nausea Prescription Printed Referrals: Jamie Diaz MD [Primary Care Provider] - 1-2 Days if not improving Additional Instructions: Follow-up with your heat sealing machine operator and rn birthing as soon as possible.
[2019-09-04 19:28] LABS: Hyaline Cast 0-5 SEEN /lpf (0-5)
[2019-09-04 19:30] LABS: Squamous Epithelial Cells - UA 0-5 SEEN /hpf (5-10); White Blood Cells 0-5 SEEN /hpf (0-5)
[2019-09-04 19:31] LABS: Yeast-Urine RARE /hpf (None Seen)
[2019-09-04 19:32] LABS: Bacteria 1+ /hpf (None Seen); Red Blood Cells-Urine 0-5 SEEN /hpf (0-5)
[2019-09-04 19:33] LABS: Transitional Epithelial - Ur 0-5 SEEN /hpf (0-5)
[2019-09-04 20:41] VITALS: BP 85/54; PULSE 88; RESP 16; O2SAT 100
== END 2019-09-04 20:42 | disposition home or self-care (01) ==
PROVIDERS: Emergency Provider Emergency Medicine; PCP Family Medicine
DX: R10.31 Right lower quadrant pain (principal); K50.90 Crohn's disease, unspecified, without complications; E87.6 Hypokalemia; R30.0 Dysuria; R35.0 Frequency of micturition; Z79.899 Other long term (current) drug therapy; Z93.3 Colostomy status; Z87.442 Personal history of urinary calculi
CPT/HCPCS: 74176; 80053; 81001; 84703; 85025; 96360; 96361; 99284; J7030

== ENCOUNTER 2021-04-08 16:53 | Emergency (ER) | payer OTHER, SELFPAY ==
[2021-04-08 16:54] VITALS: BP 113/86; PULSE 124; RESP 16; TEMP 36.2; O2SAT 96; BMI 17.3
--- NOTE | 2021-04-08 17:53 | EX.ED.DYSGE1 ---
HPI History of Present Illness Chief Complaint: Sore Throat Informant: patient Narrative Narrative: Patient presents for evaluation of tender lymph node left-sided neck for 2 days. Pain worse with swallowing. No fevers. No sore throat no dental pain. No ear pain. Patient concerned due to having a thyroid tumor removed this past May that was partially removed at [facility] by Dr. 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 Currently on thyroid medications. States she does have appointment next week. Denies fevers weight loss nausea or vomiting. With her thyroid history she is concerned. She has history of Crohn's disease with colostomy with Stelara injections every 8 weeks. Prior similar symptoms: No PFSH PFSH Medical History Crohn's disease Thyroid cancer Home Medications ustekinumab 90 mg SC PRN PRN 07/22/18 [History Last Taken Unknown] ondansetron 4 mg PO Q8H PRN PRN #10 tab 09/04/19 [Rx Last Taken Unknown] amoxicillin-pot clavulanate 1 tab PO Q12H #14 tab 04/08/21 [Rx Last Taken Unknown] levothyroxine 25 mcg PO DAILY 04/08/21 [History Last Taken Unknown] Allergy/AdvReac Type Severity Reaction Status Date / Time vancomycin Allergy Anaphylaxis Verified 03/09/20 15:28 HUMARA Allergy Other Uncoded 03/09/20 15:28 Surgical History H/O thyroidectomy Social History Smoking Status: Never smoker ROS ROS ED Constitutional Constitutional ED: Denies chills, fever(s) or sweats Eyes Eyes: Denies change in vision ENT ENT ED: Denies dysphagia or sore throat Cardiovascular Cardiovascular: Denies chest pain, leg edema, palpitations or racing heartbeat Respiratory/Chest Respiratory/Chest: Denies cough, dyspnea or dyspnea on exertion Gastrointestinal Gastrointestinal: Denies abdominal pain, diarrhea, nausea or vomiting Genitourinary Genitourinary ED: Denies dysuria, hematuria or urinary frequency Musculoskeletal Musculoskeletal: Denies back pain, extremity pain or neck pain Integumentary Denies rash or wounds Neurologic Neurologic: Denies headache(s), paresthesias or weakness EXAM Physical Exam Const Vital Signs: 04/08/21 16:54 04/08/21 18:02 Temperature 97.2 F L Temperature Source Temporal Pulse Rate 124 H 105 H Respiratory Rate 16 15 Blood Pressure 113/86 H Blood Pressure Mean 95 Pulse Ox 96 98 Oxygen Delivery Method Room Air Positive well nourished and well developed General Appearance ED: well developed and NAD HEENT Reports TM's clear and moist mucous membranes HEENT Narrative: No posterior pharyngeal erythema, no dental tenderness, normal dentition. No sublingual edema. normocephalic and atraumatic Tympanic Membrane ED: Yes TM's clear Eyes PERRL, EOMs intact bilaterally and conjunctivae normal General Eye ED: Yes normal appearance of both eyes Neck supple Neck Narrative: Tender left anterior superior cervical lymphadenopathy small in size. No posterior lymphadenopathy. General: tenderness Chest Wall Chest: Negative for tenderness Resp normal respiratory effort and normal air movement Effort and Inspection: symmetric chest movement; Negative for respiratory distress Cardio regular rhythm and no murmurs Rate: tachycardic Peripheral Pulses: pulses 2+ throughout GI normal to inspection, nondistended, normoactive bowel sounds and non-tender Palpation: Negative for guarding or rebound tenderness present Back/Spine no CVA tenderness and no thoracic nor lumbar tenderness Extremity normal to inspection General Extremety ED: Negative for edema or tenderness General Extremity: Negative for edema Neuro oriented x3 and no sensory deficits noted Sensorium / Orientation: awake and alert Skin no rashes or lesions noted and no wounds MDM MDM MDM Narrative Medical decision making narrative: Afebrile, patient tachycardic however is anxious due to her symptoms. I discussed lymphadenitis cervical region. She has normal throat intense tension. Normal ear exam. This was small in size. Discussed with patient reassured with tenderness lower concerns for cancer. Discussed offered imaging from ultrasound to CT scan, patient states would not change the plan at this time. Therefore none was obtained. She agreed with symptomatic treatment. Will give Tylenol, Decadron, Augmentin is started. She has appointment with her specialist next week for she which she will keep to reevaluate symptoms. Further testing can be done at that time. There is no airway compromise. Patient is being discharged under pandemic conditions under declared global, national and state disaster activation, with limited medical resources. Patient and community understands this. Results discussed in layman's terms to the patient satisfaction. All questions answered in layman's terms. Patient understands importance of follow-up care as directed. Patient has been instructed to return to the ED immediately if new symptoms, problems, or questions occur. We mutually agree with the plan of disposition. The patient understand that they may call or return with any questions or concerns at any time. Discharge Plan Triage Chief Complaint: Sore Throat ED Provider: José Ibarra Dx/Rx/DC Orders Clinical Impression: Cervical lymphadenitis Instructions: ED ADENITIS Cervical Abx Tx Prescriptions: New amoxicillin-pot clavulanate 875-125 mg tablet 1 tab PO Q12H Qty: 14 RF: 0 No Action ustekinumab 90 MG/M syringe 90 mg SC PRN PRN (Reason: Not Specified) RF: 0 ondansetron 4 MG tablet 4 mg PO Q8H PRN PRN (Reason: Nausea) Qty: 10 RF: 0 levothyroxine 25 mcg tablet 25 mcg PO DAILY RF: 0 Primary Care Provider: Jamie Diaz Referrals: Jamie Diaz MD [Primary Care Provider] - Activity Restrictions/Additional Instructions: Small left anterior cervical lymphadenitis. Take antibiotic as prescribed. Keep your follow-up with your ham boner next week for reevaluation. Further testing can be performed as an outpatient if needed. Disposition Disposition: Home, Self Care Discharge Date/Time: 04/08/21 18:02
[2021-04-08] MEDS: dexAMETHasone 4 MG Tablet 12 MG PO (17:54)
[2021-04-08] MEDS: Amox/Clavulanate 875 MG Tablet PO (17:54)
[2021-04-08] MEDS: Acetaminophen 500 MG Tablet 1000 MG PO (17:54)
[2021-04-08 18:02] VITALS: PULSE 105; RESP 15; O2SAT 98
== END 2021-04-08 18:02 | disposition home or self-care (01) ==
PROVIDERS: Emergency Provider Emergency Medicine; PCP Family Medicine; Visit Provider Emergency Medicine
DX: I88.9 Nonspecific lymphadenitis, unspecified (principal); K50.90 Crohn's disease, unspecified, without complications; J02.9 Acute pharyngitis, unspecified; Z85.850 Personal history of malignant neoplasm of thyroid; Z79.899 Other long term (current) drug therapy
CPT/HCPCS: 99283

== ENCOUNTER 2021-09-07 03:10 | Emergency (ER) | payer OTHER, SELFPAY ==
[2021-09-07 03:11] VITALS: BP 103/76; PULSE 100; RESP 17; TEMP 36.8; O2SAT 100; BMI 19.4
--- NOTE | 2021-09-07 04:10 | EKG12_ITS ---
Test Reason : WEAKNESS Blood Pressure : / mmHG Vent. Rate : 097 BPM Atrial Rate : 097 BPM P-R Int : 110 ms QRS Dur : 080 ms QT Int : 356 ms P-R-T Axes : 072 090 -22 degrees QTc Int : 452 ms Sinus rhythm with short IL Low voltage QRS Nonspecific ST and T wave abnormality Abnormal ECG Confirmed by TRIPP MUSE, ALEX ([id number]), editorial assistant ELMER GONZALES ([id number]) on 09/08/2021 11:06:56 AM Referred By: ISAI Confirmed By:ALEX ALMAGUER MD
[2021-09-07] MEDS: 0.9% Normal Saline 1,000 ML 1000 ML IV (04:39)
[2021-09-07 04:49] LABS: Absolute Lymphocyte Count 2.08 X10^3/uL (0.83-4.51); Absolute Neutrophil Count 5.6 X10^3/uL (2.0-7.7); Basophil# 0.08 X10^3/uL; Basophil% 0.9 % (0-1); Eosinophil# 0.15 X10^3/uL; Eosinophils% 1.7 % (0-5); Hematocrit 48.3 % (37-47); Hemoglobin 16.7 g/dL (12.0-15.0); Lymphocyte # 2.08 X10^3/ul (0.83-4.51); Lymphocyte % 23.2 % (19-41); Mean Corp Hgb Conc 34.6 g/dL (32-36); Mean Corpuscular Hgb 28.9 pg (27.0-32.0); Mean Corpuscular Volume 83.6 fL (81-99); Monocyte# 0.91 X10^3/uL; Monocyte% 10.1 % (0-10); NRBC Flagged by Analyzer 0 % (0-5); Neutrophil % 62.4 % (47-70); Platelet Count 386 K/mm3 (150-450); RBC Distribution Width CV 12.9 % (11.6-14.6); RBC Distribution Width SD 39.3 fl (35.1-43.9); Red Blood Count 5.78 M/mm3 (4.2-5.4)
[2021-09-07 05:05] LABS: D-Dimer Quantitative (DVT/PE) < 0.27 FEU/ug/m (0.27-0.49)
[2021-09-07] MEDS: Ondansetron 4 MG/2 ML Vial IV (05:07)
[2021-09-07 05:12] LABS: ALB/GLOB Ratio 0.8 RATIO (0.9-2.4); AST(SGOT) 40 U/L (15-37); Alanine Aminotransfer ALT/SGPT 36 U/L (13-56); Albumin, Serum 3.8 g/dL (3.2-5.0); Alkaline Phosphatase 125 U/L (45-117); Anion Gap 11 (5-15); BUN 22 mg/dL (7-18); BUN/Creat Ratio 15.2 RATIO (10-20); Calcium,Total 9.5 mg/dL (8.5-10.1); Chloride 96 mmol/L (98-107); Creatinine, Serum 1.45 mg/dL (0.55-1.02); EST Glomerular Filtration Rate 44 mL/min (>60); Est Glom Filt Rate - Afr Amer 53 mL/min (>60); Estimated Creatinine Clearance 35.13 ml/min; Globulin 4.5 g/dL (2.2-4.2); Glucose 108 mg/dL (74-106); Magnesium 2.2 mg/dL (1.6-2.6); Potassium 3.9 mmol/L (3.5-5.1); Protein, Total 8.3 g/dL (6.4-8.2); Sodium Level 131 mmol/L (136-145); Troponin-I HS < 3 pg/mL (3.0-54.0)
--- NOTE | 2021-09-07 05:14 | EDS_ITS ---
HPI History of Present Illness Chief Complaint: General Illness Informant: patient Narrative Narrative: Patient is a 35-year-old female with complex medical history including Crohn's disease status post colostomy as well as hypothyroid and remote history of upper extremity DVT presenting increased dyspnea on exertion, shortness of breath and fatigue. Patient notes that she had COVID approximately 2 months ago. She notes over the past 2 days she has been more fatigued and feels that her heart rate is going higher when she goes up the steps or picks up her son. Did have 1 episode of vomiting tonight and is currently having nausea. Did take 8 mg of Zofran earlier today. Has had normal output from her ostomy. Continues to pass gas through it. Denies any blood in her stool. Has had similar sensations before and had an infection so she was worried she might have 1 again today. Denies any fever but does have episodes of feeling hot and then cold. No significant cough. No fever reported. No other complaints at this time. PFSH [facility] Medical History Crohn's disease Thyroid cancer Home Medications ondansetron 4 mg disintegrating tablet 4 mg PO Q8H PRN PRN Nausea #10 tabs 09/04/19 [Rx Last Taken Unknown] levothyroxine 25 mcg tablet 25 mcg PO DAILY 04/08/21 [History Last Taken Unknown] Allergy/AdvReac Type Severity Reaction Status Date / Time vancomycin Allergy Anaphylaxis Verified 09/07/21 03:15 HUMARA Allergy Other Uncoded 09/07/21 03:15 Surgical History H/O thyroidectomy Social History Smoking Status: Never smoker ROS [facility] ED Constitutional Constitutional ED: Reports chills and sweats; Denies fever(s) Eyes Eyes: Denies blurry vision ENT ENT ED: Denies rhinorrhea or sore throat Cardiovascular Cardiovascular: Reports racing heartbeat; Denies chest pain or palpitations Respiratory/Chest Respiratory/Chest: Reports dyspnea on exertion; Denies cough or dyspnea Gastrointestinal Gastrointestinal: Reports nausea and vomiting; Denies abdominal pain, constipation or diarrhea Genitourinary Genitourinary ED: Denies dysuria or hematuria Musculoskeletal Musculoskeletal: Denies arthralgias or myalgias Integumentary Denies rash Neurologic Neurologic: Denies headache(s), paresthesias or weakness Psychiatric Psychiatric: Denies anxiety EXAM Physical Exam Const Vital Signs: 09/07/21 03:11 09/07/21 06:20 Temperature 98.2 F Temperature Source Oral Pulse Rate 100 80 Respiratory Rate 17 19 H Blood Pressure 103/76 110/70 Blood Pressure Mean 85 83 Pulse Ox 100 98 Oxygen Delivery Method Room Air Room Air Positive well nourished and well developed General Appearance ED: well developed and NAD HEENT Reports moist mucous membranes Eyes PERRL and EOMs intact bilaterally Neck supple and no JVD Chest Wall inspection of chest normal and palpation of chest normal Resp normal respiratory effort and clear to auscultation bilaterally Cardio regular rate, regular rhythm and no murmurs GI non-tender and non-distended GI Narrative: Colostomy in the left lower quadrant. Inflated with air. Nontender around it. Auscultation: normoactive bowel sounds Back/Spine no CVA tenderness Extremity normal to inspection General Extremety ED: Negative for edema or tenderness General Extremity: Negative for edema Neuro oriented x3 Motor Exam: Negative for general weakness Psych mental status grossly normal Skin no rashes or lesions noted and no wounds MDM MDM MDM Narrative Medical decision making narrative: Patient is evaluated for heart racing and generalized malaise. She is concerned for dehydration. Patient does have Crohn's disease with ostomy. Work-up does show mildly elevated hemoglobin and elevated immature granulocytes. Her white blood cell count is normal. Her D-dimer is negative. Her CMP shows a sodium of 131 and a creatinine of 1.45.'s creatinine is consistent with her baseline. Her high sensitive troponin is less than 3. EKG does show some T wave inversions in the inferior leads however compared to prior EKG reviewed through [facility] This is not significantly changed. Patient is given a copy of her lab results per her request. She given referral for RAIMUNDO Ragsdale per her request. Patient is given 1 L fluid and states she is feeling better. Initially she does request a second liter of fluid but then she decided that she wants to leave and would like her IV out. Patient is counseled return precautions. She verbalizes agreement to this plan. Discharged home in stable condition. She does appear mildly dehydrated I suspect that is the cause of her presentation today. Lab Data Attestation: I reviewed the patient's lab results. Labs: Laboratory Results - last 24 hr 09/07/21 09/07/21 09/07/21 04:40 04:40 04:40 WBC 9.0 RBC 5.78 H Hgb 16.7 H Hct 48.3 H MCV 83.6 MCH 28.9 MCHC 34.6 RDW Std Deviation 39.3 RDW Coeff of Enrique 12.9 Plt Count 386 MPV 9.0 Immature Gran % (Auto) 1.700 H Neut % (Auto) 62.4 Lymph % (Auto) 23.2 Glenn % (Auto) 10.1 H Eos % (Auto) 1.7 Baso % (Auto) 0.9 Absolute Neuts (auto) 5.6 Absolute Lymphs (auto) 2.08 Nucleated RBC % 0 D-Dimer Quant (PE/DVT) < 0.27 L Sodium 131 L Potassium 3.9 Chloride 96 L Carbon Dioxide 24.0 Anion Gap 11 BUN 22 H Creatinine 1.45 H Estim Creat Clear Calc 35.13 Est GFR (MDRD) Af Amer 53 L Est GFR (MDRD) Non-Af 44 L BUN/Creatinine Ratio 15.2 Glucose 108 H Calcium 9.5 Magnesium 2.2 Total Bilirubin 0.60 AST 40 H ALT 36 Alkaline Phosphatase 125 H Troponin I High Sens < 3 L Total Protein 8.3 H Albumin 3.8 Globulin 4.5 H Albumin/Globulin Ratio 0.8 L Urine Color Urine Clarity Urine pH Ur Specific [place] Urine Protein Urine Glucose (UA) Urine Ketones Urine Occult Blood Urine Nitrite Urine Bilirubin Urine Urobilinogen Ur Leukocyte Esterase Urine RBC Urine WBC Ur Squamous Epith Cells Urine Bacteria Urine Mucus Urine Test 09/07/21 04:55 WBC RBC Hgb Hct MCV MCH MCHC RDW Std Deviation RDW Coeff of Enrique Plt Count MPV Immature Gran % (Auto) Neut % (Auto) Lymph % (Auto) Glenn % (Auto) Eos % (Auto) Baso % (Auto) Absolute Neuts (auto) Absolute Lymphs (auto) Nucleated RBC % D-Dimer Quant (PE/DVT) Sodium Potassium Chloride Carbon Dioxide Anion Gap BUN Creatinine Estim Creat Clear Calc Est GFR (MDRD) Af Amer Est GFR (MDRD) Non-Af BUN/Creatinine Ratio Glucose Calcium Magnesium Total Bilirubin AST ALT Alkaline Phosphatase Troponin I High Sens Total Protein Albumin Globulin Albumin/Globulin Ratio Urine Color Yellow Urine Clarity Clear Urine pH 6.0 Ur Specific [place] 1.020 Urine Protein 30 H Urine Glucose (UA) Normal Urine Ketones Negative Urine Occult Blood 10 H Urine Nitrite Negative Urine Bilirubin Negative Urine Urobilinogen Normal Ur Leukocyte Esterase 25 H Urine RBC 0 SEEN Urine WBC 0-5 SEEN Ur Squamous Epith Cells 5-10 SEEN Urine Bacteria 1+ Urine Mucus 0 SEEN Urine Test Negative Rhythm Strip Rhythm Strip: Sinus Rhythm Rate: 97 Ectopy: None EKG Initial EKG: Attestation: I personally reviewed and interpreted this EKG as follows: Interpretation: Sinus Rhythm Comments: Normal sinus rhythm at a rate of 97 with shortened WV interval WV interval 110 Normal axis Normal intervals T wave inversions in inferior leads with no reciprocal changes Discharge Plan Triage Chief Complaint: General Illness Other Complaint: Fall Complaint ED Provider: Damaris Almaraz Dx/Rx/DC Orders Clinical Impression: Acute dehydration, Racing heart beat Prescriptions: No Action ondansetron 4 MG tablet 4 mg PO Q8H PRN PRN (Reason: Nausea) Qty: 10 0RF levothyroxine 25 mcg tablet 25 mcg PO DAILY Label Comments: Take 1 tablet by mouth DAILY (6 AM). Primary Care Provider: Jamie Diaz Referrals: Dennis Lane DO [STAFF PHYSICIAN] - Jamie Diaz MD [Primary Care Provider] - Disposition Disposition: Home, Self Care
[2021-09-07 05:17] LABS: Mucous, Urine 0 SEEN /hpf (<or=2+); Red Blood Cells-Urine 0 SEEN /hpf (0-5)
[2021-09-07 05:19] LABS: Color, Urine Yellow (Yellow); Glucose, Dipstick Normal (Normal); Ketone-Dipstick Negative (Negative); Leukocyte Esterase-Dipstick 25 /ul (Negative); Nitrite-Dipstick Negative (Negative); Occult Blood-Urine 10 /ul (Negative); Protein-Dipstick 30 mg/dl (Negative); Urine Bilirubin Dipstick Negative (Negative); Urine Clarity Clear (Clear); Urine Urobilinogen Normal (Normal)
[2021-09-07 05:22] LABS: Internal QC Validated? YES +Cl - CLEAR BKGD; Pregnancy, Urine Negative Negative
[2021-09-07 05:31] LABS: Bacteria 1+ /hpf (None Seen); Squamous Epithelial Cells - UA 5-10 SEEN /hpf (5-10); White Blood Cells 0-5 SEEN /hpf (0-5)
[2021-09-07 06:20] VITALS: BP 110/70; PULSE 80; RESP 19; O2SAT 98
[2021-09-07] MEDS: 0.9% Normal Saline 1,000 ML 999 ML IV (06:20)
== END 2021-09-07 07:10 | disposition home or self-care (01) ==
PROVIDERS: Emergency Provider Emergency Medicine; PCP Family Medicine; Visit Provider Emergency Medicine
DX: E86.0 Dehydration (principal); Z93.3 Colostomy status; K50.90 Crohn's disease, unspecified, without complications; R00.0 Tachycardia, unspecified; R11.2 Nausea with vomiting, unspecified; E89.0 Postprocedural hypothyroidism; Z79.890 Hormone replacement therapy; Z86.718 Personal history of other venous thrombosis and embolism; Z86.16 Personal history of COVID-19
CPT/HCPCS: 80053; 81001; 81025; 83735; 84484; 85025; 85379; 87086; 87088; 93005; 96361; 96374; 99284; J7030; A4216; J2405

== ENCOUNTER 2023-10-17 03:52 | Emergency (ER) | payer OTHER, SELFPAY ==
[2023-10-17 03:54] VITALS: BP 94/71; PULSE 96; RESP 18; TEMP 37.1; O2SAT 97; BMI 18.4
[2023-10-17] MEDS: proCHLORPERazine 10 MG/2 ML Vial IV (05:22)
[2023-10-17] MEDS: 0.9% Normal Saline (1000mL) 1,000 ML 999 ML IV (05:22)
[2023-10-17] MEDS: DiphenhydrAMINE 50 MG/ML Syringe 25 MG IV (05:26)
[2023-10-17 05:40] LABS: Mucous, Urine 0 SEEN /hpf (<or=2+)
[2023-10-17 05:44] LABS: Hemoglobin 16.9 g/dL (12.0-15.0); Mean Corp Hgb Conc 34.5 g/dL (32-36); Mean Corpuscular Hgb 28.3 pg (27.0-32.0); Mean Corpuscular Volume 81.9 fL (81-99); Mean Platelet Vol. 9.2 fl (6.2-12.0); POSITIVE COUNT YES; POSITIVE MORPHOLOGY YES; Platelet Count 498 K/mm3 (150-450); RBC Distribution Width CV 13.5 % (11.6-14.6); RBC Distribution Width SD 39.3 fl (35.1-43.9); Red Blood Count 5.98 M/mm3 (4.2-5.4); White Blood Count 14.3 K/mm3 (4.4-11.0)
[2023-10-17 05:46] LABS: Color, Urine Yellow (Yellow); Glucose, Dipstick Normal (Normal); Ketone-Dipstick Negative (Negative); Leukocyte Esterase-Dipstick 25 /ul (Negative); Nitrite-Dipstick Negative (Negative); Occult Blood-Urine 10 /ul (Negative); Protein-Dipstick 15 mg/dl (Negative); Specific Gravity, Urine 1.015 (1.002-1.030); Urine Bilirubin Dipstick Negative (Negative); Urine Clarity Sl. Cloudy (Clear); Urine Urobilinogen Normal (Normal)
[2023-10-17 05:56] LABS: Differential Indicated MANUAL DIFF
[2023-10-17 05:57] LABS: Internal QC Validated? YES +Cl - CLEAR BKGD
[2023-10-17 05:58] LABS: Pregnancy, Urine Negative Negative
[2023-10-17 06:07] VITALS: BP 98/51; PULSE 76; RESP 16; O2SAT 98
[2023-10-17 06:08] LABS: AST(SGOT) 34 U/L (15-37); Alanine Aminotransfer ALT/SGPT 42 U/L (13-56); Albumin, Serum 3.9 g/dL (3.2-5.0); Alkaline Phosphatase 130 U/L (45-117); Anion Gap 9 (5-15); BUN 37 mg/dL (7-18); BUN/Creat Ratio 14.6 RATIO (10-20); Calcium,Total 9.8 mg/dL (8.5-10.1); Chloride 90 mmol/L (98-107); Creatinine, Serum 2.53 mg/dL (0.55-1.02); EST Glomerular Filtration Rate 23 mL/min (>60); Est Glom Filt Rate - Afr Amer 28 mL/min (>60); Estimated Creatinine Clearance 18.78 ml/min; Globulin 4.9 g/dL (2.2-4.2); Glucose 119 mg/dL (74-106); Lipase 194 U/L (13-75); Potassium 4.2 mmol/L (3.5-5.1); Protein, Total 8.8 g/dL (6.4-8.2); Sodium Level 124 mmol/L (136-145)
--- NOTE | 2023-10-17 06:11 | CT_ITS ---
EXAM: CT ABDOMEN AND PELVIS WITHOUT INTRAVENOUS CONTRAST CLINICAL INDICATION: abd pain TECHNIQUE: Helically acquired images were obtained of the abdomen and pelvis without intravenous contrast. This CT exam was performed using one or more of the following dose reduction techniques: automated exposure control, adjustment of the mA and/or kV according to patient size, and/or use of iterative reconstruction technique. RADIATION DOSE: CTDIvol = 6.04 mGy, DLP = 262.73 mGy-cm COMPARISON: 10/04/2019. FINDINGS: LOWER THORAX: Unremarkable. Lung bases are clear. No cardiomegaly. No significant pericardial effusion. ABDOMEN: LIVER: Unremarkable. Homogeneous. GALLBLADDER AND BILE DUCTS: Unremarkable. No calcified gallstones. No gallbladder distention or wall edema. No intra- or extrahepatic biliary ductal dilation. PANCREAS: Unremarkable. No focal cystic mass. SPLEEN: Unremarkable. Normal size without focal cystic or solid mass. ADRENALS: Unremarkable. No nodules. KIDNEYS AND URETERS: Nonobstructing calculus measuring up to 6 mm right renal lower pole collecting system. 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 No stomach or bowel distention. PELVIS: APPENDIX: See above. BLADDER: Unremarkable. REPRODUCTIVE: Simple appearing fluid collection measuring 2.8 x 2.8 x 4.5 cm with somewhat angular margins in the region of the left adnexa impression. There was a similar smaller collection on the prior exam. ABDOMEN and PELVIS: INTRAPERITONEAL SPACE: Unremarkable. No ascites or other fluid collection. No free air. BONES/JOINTS: Unremarkable. No suspicious lytic or blastic abnormality. SOFT TISSUES: Unremarkable. No discrete abdominal or pelvic wall hernia. VASCULATURE: Unremarkable. Abdominal aorta is non-dilated. LYMPH NODES: Unremarkable. No enlarged lymph nodes. CT/Abdomen/Pelvis without Cont IMPRESSION: 1. No acute abdominal pelvic abnormality. 2. Simple appearing fluid collection measuring 2.8 x 2.8 x 4.5 cm with somewhat angular margins in the region of the left adnexa impression. There was a similar smaller collection on the prior exam. Considerations include seroma, lymphocele, ovarian cystic lesion, and hydrosalpinx. Consider pelvic ultrasound for further evaluation. 3. Nonobstructing calculus measuring up to 6 mm right renal lower pole collecting system. 4. 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 Electronically Signed: Raghu Austin MD at 7:10 EDT ,
[2023-10-17 06:37] LABS: Erythrocyte Sedimentation Rate 18 mm/hr (0-30)
[2023-10-17 06:43] LABS: Bacteria RARE /hpf (None Seen); Red Blood Cells-Urine 5-10 SEEN /hpf (0-5); Squamous Epithelial Cells - UA 5-10 SEEN /hpf (5-10); White Blood Cells 5-10 SEEN /hpf (0-5)
[2023-10-17] MEDS: Metoclopramide 10 MG/2 ML Vial IV (07:00)
--- NOTE | 2023-10-17 07:27 | EX.ED.DYSGE1 ---
HPI History of Present Illness Chief Complaint: Nausea/Vomiting Informant: patient Narrative Narrative: Patient is a 37-year-old female with past medical history of celiac disease as well as Crohn's disease and previous thyroid cancer. She also has a colostomy. She states that because of her underlying conditions she can become dehydrated and relatively easily. Patient reports she has had abdominal discomfort and nausea for the last 5 days but however still decided to go camping with her family and after being exposed to the elements feels like symptoms have worsened. Secondary to this she comes in for evaluation [facility] Medical History (Updated 10/19/23 @ 02:[address] Guerrero Fuller, DO) Vitamin D deficiency Underweight Palpitations Non-traumatic compression fracture of vertebra Cholelithiasis Ileostomy in place Anemia Thyroid cancer Home Medications ?Medication ?Instructions ?Recorded ?Last Taken ?Type ondansetron 4 mg disintegrating 4 mg PO Q8H PRN PRN Nausea #10 tabs 09/04/19 10/17/23 Rx tablet levothyroxine 25 mcg tablet 25 mcg PO DAILY 04/08/21 Unknown History cholecalciferol (vitamin D3) 10 10 mcg PO DAILY 01/26/22 Unknown History mcg (400 unit) capsule norethindrone acetate 1 mg-ethinyl 1 tab PO DAILY 01/26/22 Unknown History estradiol 20 mcg tablet (Junel) potassium chloride 10 mEq 10 meq PO DAILY 01/26/22 Unknown History capsule,extended release Vitamin B complex PO 06/21/23 Unknown History fluconazole 100 mg tablet 100 mg PO DAILY #7 tabs 06/21/23 Unknown Rx magnesium 200 mg tablet 200 mg PO DAILY 10/17/23 Unknown History promethazine 25 mg tablet 25 mg PO TID PRN nausea and 10/17/23 Unknown Rx vomiting #21 tabs Allergy/AdvReac Type Severity Reaction Status Date / Time adhesive tape Allergy Intermediate Rash Verified 10/17/23 03:53 infliximab Allergy Intermediate Shortness Verified 10/17/23 03:53 of breath adalimumab (From Humira) Allergy NEEDS Verified 10/17/23 03:53 FOLLOW-UP vancomycin Allergy Anaphylaxis Verified 10/17/23 03:53 Family History Father Hypertension Surgical History History of cholecystectomy H/O thyroidectomy Social History (Updated 06/21/23 @ 09:53 by Honey Escobedo LPN) adopted: No household members: spouse and children pets and animals: Yes (3 dogs) pets and animals: dog(s) Smoking Status: Never smoker alcohol intake: never diet: other what type of physical activity do you participate in: walking and running frequency: 5-6 times per week seatbelt use: always do you feel safe at home: Yes ROS ROS ED Constitutional Constitutional ED: Denies chills or fever(s) ENT ENT ED: Denies rhinorrhea or sore throat Cardiovascular Cardiovascular: Denies chest pain Respiratory/Chest Respiratory/Chest: Denies cough or dyspnea Gastrointestinal Gastrointestinal: Reports abdominal pain and nausea; Denies diarrhea or vomiting Genitourinary Genitourinary ED: Denies dysuria Musculoskeletal Musculoskeletal: Reports myalgias Integumentary Denies rash Neurologic Neurologic: Denies headache(s) Hematologic/Lymphatic Hematologic/Lymphatic: Denies easy bleeding or easy bruising EXAM Physical Exam Const Vital Signs: 10/17/23 03:54 10/17/23 06:07 Temperature 98.7 F Temperature Source Temporal Pulse Rate 96 76 Respiratory Rate 18 16 Blood Pressure 94/71 98/51 L Blood Pressure Mean 78 66 Pulse Ox 97 98 Oxygen Delivery Method Room Air Room Air Positive well nourished and well developed General Appearance ED: well developed; Negative for pallor HEENT Reports dry mucous membranes HEENT Narrative: Mucous membranes are dry and tacky No tongue or lip swelling no oral lesions no airway edema or compromise No secondary findings in the posterior pharynx to suggest infection Mouth ED: Yes dry mucous membranes Mouth: dry mucous membranes Eyes PERRL and EOMs intact bilaterally General Eye ED: Negative for scleral icterus Neck supple Resp normal respiratory effort and clear to auscultation bilaterally Cardio regular rate and regular rhythm Rate: other Other Details: Heart is regular rate and rhythm without murmurs rubs or gallop Radial and carotid pulses are equal and symmetric GI non-distended GI Narrative: Abdomen is soft and nondistended with hypoactive bowel sounds. Patient has a colostomy in place in the left lower abdomen that is draining brown stool without secondary findings to suggest infection. There is mild diffuse pain on palpation without voluntary guarding or rigidity or pulsatile mass. No increased tympany noted Auscultation: hypoactive bowel sounds Palpation: soft Extremity normal to inspection Neuro oriented x3, CN's II-XII intact bilaterally and no sensory deficits noted Sensorium / Orientation: alert Motor Exam: strength 5/5 throughout Psych mental status grossly normal Skin no rashes or lesions noted and No skin turgor normal Skin Narrative: Skin turgor is increased General Skin Exam: Negative for jaundice or pallor MDM MDM MDM Narrative Medical decision making narrative: Patient arrived to the ER with a soft nonsurgical abdomen. She reported that she becomes dehydrated easily and feels symptoms have worsened when she was exposed to the weather. Her exam is consistent with dehydration with dry mucous membranes and increased skin tenting. In order to check for clinically significant electrolyte abnormalities and/or acute kidney injury basic labs were obtained. Patient's white count is elevated at 14.3 but lactic acid is normal. Patient's lipase is also elevated and therefore there is concern for acute pancreatitis causing her symptoms and therefore CT scan was ordered. As her creatinine is now elevated at 2.53 the scan must be done without contrast. Previous charts were reviewed and patient had labs in May of this year which showed a creatinine of 1.05 which would indicate this is acute kidney injury. Patient CT scan showed a mass in the left adnexa but radiology not noted that it had been there previously but otherwise there is no signs of obstruction or secondary infection. The patient was informed that she should be admitted secondary to her ELPIDIO as well as her sodium being down at 124 for continued IV hydration and monitoring. The patient states she feels better after treatment in the ER and that despite the fact I can find labs that are 4-5 months old indicating her values were essentially normal she states that these values for her sodium and creatinine are essentially her baseline. Therefore patient does not want admitted to the hospital. The patient is awake alert and oriented she is competent to make this decision and understands the risks of leaving the hospital despite having an elevated creatinine and decreased sodium value. Patient states she will follow-up with her family doctor and return to the ER if symptoms worsen but at this time she does not feel she needs admission as she is feeling better after treatment in the ER. Therefore I will abide by the patient's wishes and discharge her as she is competent to make this decision and understands the risks of leaving History & Record Review Discussion w/independent historian: Patient Lab Data Attestation: I reviewed the patient's lab results. Labs: Laboratory Results - last 24 hr 08/07/24 08/07/24 08/07/24 05:15 05:20 06:25 WBC 14.3 H RBC 5.98 H Hgb 16.9 H Hct 49.0 H MCV 81.9 MCH 28.3 MCHC 34.5 RDW Std Deviation 39.3 RDW Coeff of Enrique 13.5 Plt Count 498 H MPV 9.2 Neut % (Auto) Not Reportable ESR 18 Sodium 124 L Potassium 4.2 Chloride 90 L Carbon Dioxide 25.0 Anion Gap 9 BUN 37 H Creatinine 2.53 H Estim Creat Clear Calc 18.78 Est GFR (MDRD) Af Amer 28 L Est GFR (MDRD) Non-Af 23 L BUN/Creatinine Ratio 14.6 Glucose 119 H Lactic Acid 1.0 Calcium 9.8 Total Bilirubin 0.70 Direct Bilirubin 0.30 AST 34 ALT 42 Alkaline Phosphatase 130 H C-React Prot Ext Range 12.30 H Total Protein 8.8 H Albumin 3.9 Globulin 4.9 H Lipase 194 H Urine Color Yellow Urine Clarity Sl. Cloudy Urine pH 6.0 Ur Specific [place] 1.015 Urine Protein 15 H Urine Glucose (UA) Normal Urine Ketones Negative Urine Occult Blood 10 H Urine Nitrite Negative Urine Bilirubin Negative Urine Urobilinogen Normal Ur Leukocyte Esterase 25 H Urine RBC 5-10 SEEN Urine WBC 5-10 SEEN Ur Squamous Epith Cells 5-10 SEEN Urine Bacteria RARE Urine Mucus 0 SEEN Urine Test Negative Radiography Diagnostic Testing: Clinical Impression(s) from Imaging Studies Abdomen/Pelvis CT 10/17/23 06:11 IMPRESSION: 1. No acute abdominal pelvic abnormality. 2. Simple appearing fluid collection measuring 2.8 x 2.8 x 4.5 cm with somewhat angular margins in the region of the left adnexa impression. There was a similar smaller collection on the prior exam. Considerations include seroma, lymphocele, ovarian cystic lesion, and hydrosalpinx. Consider pelvic ultrasound for further evaluation. 3. Nonobstructing calculus measuring up to 6 mm right renal lower pole collecting system. 4. 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 Electronically Signed: Raghu Austin MD at 7:10 EDT , Discharge Plan Triage Chief Complaint: Nausea/Vomiting ED Provider: Guerrero Fuller Dx/Rx/DC Orders Clinical Impression: Nausea, Hyponatremia, Dehydration, Crohn's disease, Celiac disease Instructions: Dehydration, ED Hyponatremia Prescriptions: New promethazine 25 mg tablet 25 mg PO TID PRN (Reason: nausea and vomiting) Qty: 21 0RF No Action cholecalciferol (vitamin D3) 10 mcg (400 unit) capsule 10 mcg PO DAILY norethindrone ac-eth estradiol [03/31 (21)] 1-20 mg-mcg tablet 1 tab PO DAILY potassium chloride 10 mEq capsule, extended release 10 meq PO DAILY Vitamin B complex PO Rx Instructions: takes 2 gummies daily fluconazole 100 mg tablet 100 mg PO DAILY Qty: 7 0RF ondansetron 4 MG tablet 4 mg PO Q8H PRN PRN (Reason: Nausea) Qty: 10 0RF levothyroxine 25 mcg tablet 25 mcg PO DAILY Patient Comments: Take 1 tablet by mouth DAILY (6 AM). magnesium 200 mg tablet 200 mg PO DAILY Primary Care Provider: Lolis Vicente Referrals: Lolis Vicente, [employer]ESS MANAGEMENT ARCHITECT-C [Primary Care Provider] - Activity Restrictions/Additional Instructions: Please take your medication as directed by your family doctor and keep yourself well-hydrated. Follow-up with your doctor for repeat laboratory studies to ensure your labs are improving and return to the ER should you have any further concerns Print Language: Mohawk Disposition Disposition: Home, Self Care Discharge Date/Time: 10/17/23 07:36
[2023-10-17 07:35] VITALS: BP 127/63; PULSE 64; RESP 15; TEMP 36.2; O2SAT 98
[2023-10-17 07:42] LABS: Lymphocyte 10 % (19-41); Metamyelocyte 1 % (0-1); Monocyte 5 % (0-10); Myelocyte 1 % (0-0); Neutrophil-Band 4 % (0-5); Neutrophil-Segmented 79 % (47-70); Total Cells Counted 100 (MANUAL DIFF)
[2023-10-17 07:43] LABS: Red Cell Morphology NORM C+C NORMAL (NORM C&C)
[2023-10-17 07:44] LABS: Absolute Lymphocyte Count 2.57 X10^3/uL (0.83-4.51); Absolute Neutrophil Count 11.9 X10^3/uL (2.0-7.7); Platelet Estimate SLT INC (ADEQ)
[2023-10-17 13:39] LABS: Pathologist Review Reviewed
== END 2023-10-17 07:36 | disposition home or self-care (01) ==
PROVIDERS: Emergency Provider Emergency Medicine; PCP Nurse Practitioner; Visit Provider Emergency Medicine
DX: N17.9 Acute kidney failure, unspecified (principal); Z93.3 Colostomy status; K50.90 Crohn's disease, unspecified, without complications; E86.0 Dehydration; R11.0 Nausea; E87.1 Hypo-osmolality and hyponatremia; K90.0 Celiac disease; Z79.899 Other long term (current) drug therapy
CPT/HCPCS: 74176; 80048; 80076; 81001; 81025; 83605; 83690; 85025; 85652; 86140; 87086; 87088; 96361; 96374; 96375; 99283; J7030; A4216

== ENCOUNTER → 2023-11-06 | Outpatient (CLI) | payer OTHER, SELFPAY ==
--- NOTE | 2023-11-06 12:06 | US_ITS ---
STUDY: ULTRASOUND OF THE FEMALE PELVIS - COMPLETE REASON FOR EXAM: Female, [address], 2.8x2.8x4.5 cm left adnexa fluid LMP: 10/30/2023 TECHNIQUE: Transabdominal and Transvaginal TECHNICAL QUALITY: Adequate. COMPARISON: CT scan 10/17/2023. FINDINGS: The uterus is anteverted and is in a midline position. The uterus measures 6.4 x 3.9 x 2.7 cm. Normal uterine cervix. The endometrium measures 6 mm in thickness, and is heterogeneous (striated). There is no demonstrated endometrial mass. There is no demonstrated myometrial mass. I.U.D. - The patient does not have an I.U.D. The right ovary is visualized. The right ovary measures 3.7 x 2.9 x 2.1 cm. There is a 2.9 cm cyst. 6 There is no visualized right adnexal mass or complex lesion. There is normal arterial and normal venous vascularity. The left ovary is visualized. The left ovary measures 6.1 x 3.7 x 3.7 cm. There is a 5.0 cm complex cystic mass. Recommend follow-up in 1 or 2 menstrual periods There is no visualized left adnexal mass or complex lesion. There is normal arterial and normal venous vascularity. There is no fluid in the cul-de-sac. US/Pelvic w/ Transvaginal IMPRESSION: Bilateral ovarian/adnexal cystic masses. Largest is on the left measuring 5 cm and is complex. Recommend follow-up in one or 2 menstrual periods. Electronically Signed: Harrison Soto MD at 16:34 EDT ,
[2023-11-06 15:22] LABS: Absolute Lymphocyte Count 2.64 X10^3/uL (0.83-4.51); Absolute Neutrophil Count 9.7 X10^3/uL (2.0-7.7); Basophil# 0.17 X10^3/uL; Basophil% 1.2 % (0-1); Eosinophil# 0.25 X10^3/uL; Eosinophils% 1.7 % (0-5); Hematocrit 47.3 % (37-47); Hemoglobin 15.6 g/dL (12.0-15.0); Lymphocyte # 2.64 X10^3/ul (0.83-4.51); Lymphocyte % 18.1 % (19-41); Mean Corpuscular Hgb 28.2 pg (27.0-32.0); Mean Corpuscular Volume 85.5 fL (81-99); Mean Platelet Vol. 9.4 fl (6.2-12.0); Monocyte% 9.6 % (0-10); NRBC Flagged by Analyzer 0 % (0-5); Neutrophil # 9.66 X10^3/uL (2.7-7.7); Neutrophil % 66.2 % (47-70); Platelet Count 439 K/mm3 (150-450); RBC Distribution Width CV 13.4 % (11.6-14.6); RBC Distribution Width SD 41.3 fl (35.1-43.9); Red Blood Count 5.53 M/mm3 (4.2-5.4); White Blood Count 14.6 K/mm3 (4.4-11.0)
[2023-11-06 16:58] LABS: Vitamin B12 588 pg/mL (211-911)
[2023-11-06 17:04] LABS: ALB/GLOB Ratio 0.7 RATIO (0.9-2.4); AST(SGOT) 32 U/L (15-37); Alanine Aminotransfer ALT/SGPT 40 U/L (13-56); Albumin, Serum 3.5 g/dL (3.2-5.0); Alkaline Phosphatase 114 U/L (45-117); Anion Gap 11 (5-15); BUN 24 mg/dL (7-18); BUN/Creat Ratio 14.3 RATIO (10-20); Calcium,Total 9.4 mg/dL (8.5-10.1); Chloride 96 mmol/L (98-107); Cholesterol 227 mg/dL (200); Creatinine, Serum 1.68 mg/dL (0.55-1.02); EST Glomerular Filtration Rate 37 mL/min (>60); Est Glom Filt Rate - Afr Amer 44 mL/min (>60); Ferritin 137 ng/mL (8-252); Globulin 4.9 g/dL (2.2-4.2); Glucose 98 mg/dL (74-106); High Density Lipoprotein 82 mg/dL; Iron 68 ug/dL (50-170); Iron Binding Capacity,Total 414 ug/dL (250-450); Magnesium 2.3 mg/dL (1.6-2.6); Protein, Total 8.4 g/dL (6.4-8.2); Sodium Level 132 mmol/L (136-145); T4 Free Direct 1.07 ng/dL (0.76-1.46); Triglycerides 232 mg/dL; Very Low Density Lipoprotein 46 mg/dL (5-40)
[2023-11-13 08:07] LABS: T3 Reverse 28.8 ng/dL (9.2-24.1)
== END | disposition home or self-care (01) ==
PROVIDERS: PCP Nurse Practitioner; Referring Provider Nurse Practitioner; Visit Provider Nurse Practitioner
DX: R19.8 Other specified symptoms and signs involving the digestive system and abdomen (principal); K50.90 Crohn's disease, unspecified, without complications; C73 Malignant neoplasm of thyroid gland
CPT/HCPCS: 36415; 76830; 76856; 80053; 80061; 82607; 82728; 83540; 83550; 83735; 84439; 84443; 84482; 85025

== ENCOUNTER → 2023-11-08 | Outpatient (CLI) | payer OTHER, SELFPAY ==
--- NOTE | 2023-11-08 16:35 | US_ITS ---
EXAM: US SOFT TISSUES HEAD AND NECK, THYROID CLINICAL INDICATION: thyroid cancer history TECHNIQUE: Greyscale and color doppler imaging was performed of the thyroid gland. COMPARISON: No relevant prior studies available. FINDINGS: LEFT THYROID LOBE: The left lobe of the thyroid is surgically absent. RIGHT THYROID LOBE: The right lobe of the thyroid is homogeneous. Homogeneous echotexture with normal vascularity. No thyroid nodules are present. The right lobe of the thyroid lobe measures 4.0 x 1.6 x 1.1 cm. ISTHMUS: Unremarkable. No thyroid nodules are present. LYMPH NODES: Unremarkable. Normal sized lymph node measuring 8 mm maximum diameter left-sided the neck. US/Thyroid IMPRESSION: 1. Normal right lobe of the thyroid. Surgically absent left lobe of the thyroid. 2. Normal sized lymph node measuring 8 mm maximum diameter left-sided the neck. Electronically Signed: Raghu Austin MD at 7:33 EDT ,
== END | disposition home or self-care (01) ==
LOC: US 16:32
PROVIDERS: PCP Nurse Practitioner; Referring Provider Nurse Practitioner; Visit Provider Nurse Practitioner
DX: Z85.850 Personal history of malignant neoplasm of thyroid (principal)
CPT/HCPCS: 76536

== ENCOUNTER 2024-01-11 17:54 | Emergency (ER) | payer OTHER, SELFPAY ==
[2024-01-11 17:57] VITALS: BP 96/80; PULSE 115; RESP 16; TEMP 36.6; O2SAT 97; O2SAT 99; BMI 18.0
[2024-01-11 19:38] LABS: Absolute Lymphocyte Count 2.48 X10^3/uL (0.83-4.51); Absolute Neutrophil Count 9.3 X10^3/uL (2.0-7.7); Basophil# 0.12 X10^3/uL; Basophil% 0.9 % (0-1); Eosinophil# 0.19 X10^3/uL; Eosinophils% 1.4 % (0-5); Hematocrit 44.6 % (37-47); Hemoglobin 15.3 g/dL (12.0-15.0); Lymphocyte # 2.48 X10^3/ul (0.83-4.51); Lymphocyte % 17.8 % (19-41); Mean Corp Hgb Conc 34.3 g/dL (32-36); Mean Corpuscular Hgb 28.3 pg (27.0-32.0); Mean Corpuscular Volume 82.6 fL (81-99); Mean Platelet Vol. 8.7 fl (6.2-12.0); Monocyte# 1.42 X10^3/uL; Monocyte% 10.2 % (0-10); NRBC Flagged by Analyzer 0 % (0-5); Neutrophil # 9.32 X10^3/uL (2.7-7.7); Neutrophil % 66.8 % (47-70); Platelet Count 418 K/mm3 (150-450); RBC Distribution Width CV 13.5 % (11.6-14.6); RBC Distribution Width SD 40.4 fl (35.1-43.9); White Blood Count 13.9 K/mm3 (4.4-11.0)
[2024-01-11] MEDS: LORazepam 2 MG/ML Syringe 0.25 MG IV (19:46)
[2024-01-11] MEDS: 0.9% Normal Saline (1000mL) 1,000 ML 1000 ML IV (19:46)
[2024-01-11] MEDS: Ondansetron 4 MG/2 ML Vial IV (19:46)
[2024-01-11 19:49] VITALS: BP 105/68; PULSE 111; RESP 18; O2SAT 99
[2024-01-11 19:58] LABS: Mucous, Urine 0 SEEN /hpf (<or=2+)
[2024-01-11 20:01] LABS: Color, Urine Yellow (Yellow); Glucose, Dipstick Normal (Normal); Ketone-Dipstick Negative (Negative); Leukocyte Esterase-Dipstick 25 /ul (Negative); Nitrite-Dipstick Negative (Negative); Occult Blood-Urine 10 /ul (Negative); Protein-Dipstick 15 mg/dl (Negative); Urine Bilirubin Dipstick Negative (Negative); Urine Clarity Clear (Clear); Urine Urobilinogen Normal (Normal); Urine pH 6.5 (5.0 - 8.0)
--- NOTE | 2024-01-11 20:05 | EX.ED.DYSGE1 ---
HPI History of Present Illness Chief Complaint: Numb/Ting Informant: patient Narrative Narrative: Patient is a 38-year-old female with ultimately complex medical history including Crohn's disease, colostomy, thyroid cancer status post partial thyroidectomy and celiac's disease presenting with sudden onset of left jaw/facial numbness that then progressed to paresthesias of her whole body and spasms of her hands and feet. She states she was driving around 4:30 PM when this suddenly started. She has had fluctuating symptoms of the spasms and severity of the tingling. She knows she never felt like this before. She denies any recent change in her colostomy output. Notes she does have a history of electrolyte abnormalities. Denies any recent medication changes. [place] any recent blood in her stool. No other complaints or concerns at this time. notes couple days ago she had face/eyebrow twitching. [facility] Medical History Vitamin D deficiency Underweight Palpitations Non-traumatic compression fracture of vertebra Cholelithiasis Ileostomy in place Anemia Thyroid cancer Home Medications ?Medication ?Instructions ?Recorded ?Last Taken ?Type cholecalciferol (vitamin D3) 10 10 mcg PO DAILY 01/26/22 Unknown History mcg (400 unit) capsule Vitamin B complex PO 06/21/23 Unknown History magnesium 200 mg tablet 200 mg PO DAILY 10/17/23 Unknown History promethazine 25 mg tablet 25 mg PO TID PRN nausea and 10/17/23 Unknown Rx vomiting #21 tabs ondansetron 8 mg disintegrating 8 mg PO Q8H PRN PRN Nausea #90 tabs 11/06/23 Unknown Rx tablet prednisone 1 mg tablet 2 mg (2 x 1 mg) PO DAILY #30 tabs 11/06/23 Unknown Rx levothyroxine 25 mcg tablet 25 mcg PO DAILY 30 days #30 tabs 01/11/24 Unknown Rx Allergy/AdvReac Type Severity Reaction Status Date / Time adhesive tape Allergy Intermediate Rash Verified 01/11/24 18:38 infliximab Allergy Intermediate Shortness Verified 01/11/24 18:38 of breath adalimumab (From Humira) Allergy NEEDS Verified 01/11/24 18:38 FOLLOW-UP vancomycin Allergy Anaphylaxis Verified 01/11/24 18:38 Family History Father Hypertension Surgical History History of cholecystectomy H/O thyroidectomy Social History adopted: No household members: spouse and children pets and animals: Yes (3 dogs) pets and animals: dog(s) Smoking Status: Never smoker alcohol intake: never diet: other what type of physical activity do you participate in: walking and running frequency: 5-6 times per week seatbelt use: always do you feel safe at home: Yes ROS ROS ED Constitutional Constitutional ED: Reports other Details: Diffuse paresthesias ; Denies chills or fever(s) Eyes Eyes: Denies change in vision Cardiovascular Cardiovascular: Denies chest pain Respiratory/Chest Respiratory/Chest: Denies cough Gastrointestinal Gastrointestinal: Denies abdominal pain, diarrhea, melena, nausea or vomiting Musculoskeletal Musculoskeletal: Reports myalgias and other Details: Diffuse charley horse/cramping sensation ; Denies arthralgias Integumentary Denies rash Neurologic Neurologic: Reports paresthesias; Denies headache(s) Psychiatric Psychiatric: Reports anxiety Hematologic/Lymphatic Hematologic/Lymphatic: Denies easy bleeding or easy bruising EXAM Physical Exam Const Vital Signs: 01/11/24 17:57 01/11/24 19:49 01/11/24 21:00 Temperature 97.8 F Temperature Source Oral Pulse Rate 115 H 111 H 113 H Respiratory Rate 16 18 16 Blood Pressure 96/80 105/68 104/63 Blood Pressure Mean 85 80 76 Pulse Ox 99 99 95 Oxygen Delivery Method Room Air Room Air Positive well developed Constitutional Narrative: Thin, chronically ill-appearing General Appearance ED: well developed and NAD HEENT Reports dry mucous membranes Mouth ED: Yes dry mucous membranes Mouth: dry mucous membranes Eyes PERRL Neck supple and no JVD Chest Wall inspection of chest normal and palpation of chest normal Resp normal respiratory effort and clear to auscultation bilaterally Cardio regular rhythm and no murmurs Rate: tachycardic GI normal to inspection, nondistended, normoactive bowel sounds and non-tender GI Narrative: Colostomy bag in place Auscultation: normoactive bowel sounds Extremity normal to inspection General Extremety ED: Negative for edema General Extremity: Negative for edema Neuro oriented x3, CN's II-XII intact bilaterally and no sensory deficits noted Neuro Narrative: No focal neurologic deficits appreciated. No focal paresthesias but patient reports paresthesias of the bilateral legs Sensorium / Orientation: alert Motor Exam: strength 5/5 throughout; Negative for general weakness Psych Mood & Affect: anxious Skin no rashes or lesions noted and no wounds MDM MDM MDM Narrative Medical decision making narrative: Patient is evaluated for sudden onset of paresthesias started on her left jaw the progress her entire body. She is also complaining of cramping is having spasms of her hands and feet it sounds like. Patient is quite anxious and tachycardic upon arrival. She does have a significant medical history including Crohn's disease with colostomy and prior thyroid cancer. Differential includes carpopedal spasm, electrolyte abnormality, acute dehydration and thyroid dysfunction. Patient is not hypoxic complaining of shortness of breath moist vision for cardiopulmonary process. She does not have any focal neurologic deficits and low suspicion for acute stroke or acute intracranial process. She notes she has had similar symptoms but to a much lesser degree correlated with having gout in the past that she has severe celiac's disease. Patient is given IV fluids, Zofran and dose of IV lorazepam as I suspect there is component of anxiety/hyperventilation and carpopedal spasm as well. Patient's blood work shows a mild leukocytosis of 13.9 however this is actually slightly below which she was her last 2 visits. BMP shows mild hyponatremia which appears to be chronic and stable as well as a mild hypokalemia and a mild ELPIDIO which is improved from her baseline. Her TSH is mildly elevated at 4.76 and her serum quant is negative. Low suspicion for or other complication. Urinalysis is most consistent with some mild contamination as it is 1+ bacteria but 0-5 squamous epithelial cells, 0-5 white blood cells and 0-5 red blood cells. No nitrites. Will send for culture. Patient reevaluated and states that she is feeling much better. She still mildly tachycardic. She feels that this is back to her baseline however and states that her heart rate is normally elevated as long as is not above 120 she is doing well. Discussed that the cause her symptoms is not clear. Encouraged her to follow-up with her family physician as well as GI. Will give her referral for neurology per her request since she did have these paresthesias today but I did residence counselor that I have a lower suspicion for acute neurologic cause of her symptoms. Patient verbalized agreement understand this plan. Is given a refill of her Synthroid per her request. Discharged home in stable improved condition Lab Data Attestation: I reviewed the patient's lab results. Labs: Laboratory Results - last 24 hr 01/11/24 01/11/24 19:30 19:42 WBC 13.9 H RBC 5.40 Hgb 15.3 H Hct 44.6 MCV 82.6 MCH 28.3 MCHC 34.3 RDW Std Deviation 40.4 RDW Coeff of Enrique 13.5 Plt Count 418 MPV 8.7 Immature Gran % (Auto) 2.900 H Neut % (Auto) 66.8 Lymph % (Auto) 17.8 L Stone % (Auto) 10.2 H Eos % (Auto) 1.4 Baso % (Auto) 0.9 Absolute Neuts (auto) 9.3 H Absolute Lymphs (auto) 2.48 Nucleated RBC % 0 Sodium 131 L Potassium 3.8 Chloride 91 L Carbon Dioxide 29.0 Anion Gap 11 BUN 15 Creatinine 1.31 H Estim Creat Clear Calc 35.03 Est GFR (MDRD) Af Amer 59 L Est GFR (MDRD) Non-Af 49 L BUN/Creatinine Ratio 11.5 Glucose 111 H Calcium 9.1 Magnesium 1.8 Total Bilirubin 0.50 AST 31 ALT 37 Alkaline Phosphatase 113 Total Protein 7.8 Albumin 3.8 Globulin 4.0 Albumin/Globulin Ratio 1.0 TSH 4.760 H HCG, Quant < 1 Urine Color Yellow Urine Clarity Clear Urine pH 6.5 Ur Specific [place] 1.010 Urine Protein 15 H Urine Glucose (UA) Normal Urine Ketones Negative Urine Occult Blood 10 H Urine Nitrite Negative Urine Bilirubin Negative Urine Urobilinogen Normal Ur Leukocyte Esterase 25 H Urine RBC 0-5 SEEN Urine WBC 0-5 SEEN Ur Squamous Epith Cells 0-5 SEEN Urine Bacteria 1+ Urine Mucus 0 SEEN Rhythm Strip Rhythm Strip: Sinus Tach Rate: 113 Ectopy: None Discharge Plan Triage Chief Complaint: Numb/Ting ED Provider: Damaris Almaraz Dx/Rx/DC Orders Clinical Impression: Tachycardia, Carpopedal spasm, Paresthesia Prescriptions: Continued levothyroxine 25 mcg tablet 25 mcg PO DAILY 30 Days Qty: 30 0RF Patient Comments: Take 1 tablet by mouth DAILY (6 AM). No Action cholecalciferol (vitamin D3) 10 mcg (400 unit) capsule 10 mcg PO DAILY Vitamin B complex PO Rx Instructions: takes 2 gummies daily ondansetron 8 mg tablet,disintegrating 8 mg PO Q8H PRN PRN (Reason: Nausea) Qty: 90 1RF prednisone 1 mg tablet 2 mg PO DAILY Qty: 30 0RF magnesium 200 mg tablet 200 mg PO DAILY promethazine 25 mg tablet 25 mg PO TID PRN (Reason: nausea and vomiting) Qty: 21 0RF Primary Care Provider: Lolis Vicente Referrals: Beau Freeman MD [Non-Staff -Ordering Privileges] - As Needed Friend,DO Dennis [Med Staff - Active Staff] - As soon as possible Lolis Vicente, HANDICRAFT OR [employer] SHOP MANAGER-C [Primary Care Provider] - Print Language: German Disposition Disposition: Home, Self Care
[2024-01-11 20:07] LABS: hCG Titer Quant., Serum < 1 mIU/mL (1-3)
[2024-01-11 20:12] LABS: Bacteria 1+ /hpf (None Seen); Red Blood Cells-Urine 0-5 SEEN /hpf (0-5); Squamous Epithelial Cells - UA 0-5 SEEN /hpf (5-10); White Blood Cells 0-5 SEEN /hpf (0-5)
[2024-01-11 20:14] LABS: AST(SGOT) 31 U/L (15-37); Alanine Aminotransfer ALT/SGPT 37 U/L (13-56); Albumin, Serum 3.8 g/dL (3.2-5.0); Alkaline Phosphatase 113 U/L (45-117); Anion Gap 11 (5-15); BUN 15 mg/dL (7-18); BUN/Creat Ratio 11.5 RATIO (10-20); Calcium,Total 9.1 mg/dL (8.5-10.1); Chloride 91 mmol/L (98-107); Creatinine, Serum 1.31 mg/dL (0.55-1.02); EST Glomerular Filtration Rate 49 mL/min (>60); Est Glom Filt Rate - Afr Amer 59 mL/min (>60); Estimated Creatinine Clearance 35.03 ml/min; Glucose 111 mg/dL (74-106); Magnesium 1.8 mg/dL (1.6-2.6); Potassium 3.8 mmol/L (3.5-5.1); Protein, Total 7.8 g/dL (6.4-8.2); Sodium Level 131 mmol/L (136-145)
[2024-01-11 21:00] VITALS: BP 104/63; PULSE 113; RESP 16; O2SAT 95
[2024-01-11 22:52] VITALS: BP 99/62; PULSE 65; RESP 18; TEMP 36.8; O2SAT 99
== END 2024-01-11 22:55 | disposition home or self-care (01) ==
PROVIDERS: Emergency Provider Emergency Medicine; PCP Nurse Practitioner; Referring Provider Emergency Medicine; Visit Provider Emergency Medicine
DX: R29.0 Tetany (principal); Z93.3 Colostomy status; R00.0 Tachycardia, unspecified; R20.2 Paresthesia of skin; E87.1 Hypo-osmolality and hyponatremia; E89.0 Postprocedural hypothyroidism; Z79.890 Hormone replacement therapy; Z79.899 Other long term (current) drug therapy
CPT/HCPCS: 80053; 81001; 83735; 84443; 84702; 85025; 87086; 87088; 96361; 96374; 96375; 99285; J7030; A4216; J2405

== ENCOUNTER 2024-02-07 15:27 | Emergency (ER) | payer OTHER, SELFPAY ==
[2024-02-07 15:28] VITALS: BP 100/72; PULSE 128; RESP 20; TEMP 36.4; O2SAT 100; BMI 17.3
--- NOTE | 2024-02-07 16:00 | RAD_ITS ---
STUDY: X-RAY CHEST REASON FOR EXAM: Female, 38 years old. cough TECHNIQUE: PA COMPARISON: None. FINDINGS: The lungs are clear and expanded. There is no demonstrated pleural abnormality. Normal size heart. Normal mediastinum and rachna. Normal visualized pulmonary arteries. Normal visualized aortic arch and descending thoracic aorta. Normal visualized thoracic spine. Normal visualized ribs, clavicles, and shoulders. There is no demonstrated abnormality of the visualized soft tissue structures of the upper abdomen. RAD/Chest 1 View (Portable) IMPRESSION: Normal x-ray examination of the chest. Electronically Signed: Fidencio Wall MD at 16:19 [facility] ,
[2024-02-07 16:32] VITALS: BP 107/66; PULSE 109; RESP 18; TEMP 36.7; O2SAT 98
--- NOTE | 2024-02-07 16:56 | ED.VIS.DYS ---
HPI History of Present Illness Chief Complaint: Cough Narrative Narrative: Chief complaint and HPI: 38-year-old female with history of Crohn's on 1 mg tablet prednisone, POTS, history of thyroid cancer status post resection presents for evaluation of cough and URI type symptoms. Patient states her and her son have been home with URI type symptoms consisting of cough, shortness of breath, headache, sinus congestion. Patient states her sons symptoms are slightly improving but hers appear to be worsening. She states she noticed when she walked around her house today she developed palpitations. She states she has been eating and drinking. She denies any fever, chest pain, abdominal pain, nausea, vomiting, diarrhea. Review of systems: See HPI Medications: As listed on the chart Allergies: As listed on the chart PFSH: Per chart Vital signs: As listed on the chart. Reviewed. Physical exam: Gen: A&O x3, NAD Head: Normocephalic, atraumatic Eyes: No sclera icterus, conjunctiva clear, PERRL, EOMI ENT: Dry mucous membranes Neck: Trachea midline, No JVD, Full ROM, No meningismus CV: Tachycardic, regular rhythm, no murmurs, no peripheral edema Resp: Lungs CTA BL, no w/r/c, + dry cough GI: Abd soft, non-distended, non-tender, no r/r/g Musc: Full ROM, no deformity Skin: Warm, dry, no rash Neuro: Alert, oriented, grossly intact, sensation intact Psych: Cooperative, appropriate mood and affect [facility] Medical History Vitamin D deficiency Underweight Palpitations Non-traumatic compression fracture of vertebra Cholelithiasis Ileostomy in place Anemia Thyroid cancer Home Medications ?Medication ?Instructions ?Recorded ?Last Taken ?Type cholecalciferol (vitamin D3) 10 10 mcg PO DAILY 01/26/22 Unknown History mcg (400 unit) capsule Vitamin B complex PO 06/21/23 Unknown History magnesium 200 mg tablet 200 mg PO DAILY 10/17/23 Unknown History promethazine 25 mg tablet 25 mg PO TID PRN nausea and 10/17/23 Unknown Rx vomiting #21 tabs ondansetron 8 mg disintegrating 8 mg PO Q8H PRN PRN Nausea #90 tabs 11/06/23 Unknown Rx tablet levothyroxine 25 mcg tablet 25 mcg PO DAILY 30 days #30 tabs 01/11/24 Unknown Rx lorazepam 0.5 mg tablet See Rx Instructions PO QDAY PRN 01/25/24 Unknown Rx anxiety #7 tabs prednisone 1 mg tablet 1.5 mg PO DAILY 01/25/24 Unknown History prednisone 1 mg tablet See Rx Instructions PO QDAY #45 01/25/24 Unknown Rx tabs benzonatate 100 mg capsule 100 mg PO BID PRN cough 5 days #15 02/07/24 Unknown Rx caps Allergy/AdvReac Type Severity Reaction Status Date / Time adhesive tape Allergy Intermediate Rash Verified 02/07/24 15:28 infliximab Allergy Intermediate Shortness Verified 02/07/24 15:28 of breath adalimumab (From Humira) Allergy NEEDS Verified 02/07/24 15:28 FOLLOW-UP vancomycin Allergy Anaphylaxis Verified 02/07/24 15:28 Family History Father Hypertension Surgical History History of cholecystectomy H/O thyroidectomy Social History adopted: No household members: spouse and children pets and animals: Yes (3 dogs) pets and animals: dog(s) Smoking Status: Never smoker alcohol intake: never diet: other what type of physical activity do you participate in: walking and running frequency: 5-6 times per week seatbelt use: always do you feel safe at home: Yes EXAM Physical Exam Const Vital Signs: 02/07/24 15:28 02/07/24 16:32 02/07/24 17:00 Temperature 97.6 F L 98.1 F 98 F Temperature Source Oral Oral Oral Pulse Rate 128 H 109 H 108 H Respiratory Rate 20 H 18 18 Respiratory Effort Respiratory Depth Respiratory Pattern Blood Pressure 100/72 107/66 102/78 Blood Pressure Mean 81 79 86 Pulse Ox 100 98 99 Oxygen Delivery Method Room Air Room Air 02/07/24 17:23 Temperature Temperature Source Pulse Rate Respiratory Rate Respiratory Effort Normal Respiratory Depth Normal Respiratory Pattern Normal Blood Pressure Blood Pressure Mean Pulse Ox Oxygen Delivery Method MDM MDM MDM Narrative Medical decision making narrative: 38-year-old female presents for evaluation of cough and URI symptoms. On presentation she is tachycardic with a heart rate of 128. Afebrile and otherwise vitals are stable. Differential diagnosis includes but is not limited to viral illness, bronchitis, COVID-19, influenza, pneumonia, electrolyte abnormality, dehydration. Suspect less likely ACS or PE. NS bolus ordered as patient is tachycardic and has dry mucous membranes.. Respiratory workup ordered. EKG and chest x-ray reviewed see below. CBC with mild leukocytosis of 13.1 however on chart review this appears to be her baseline. She is mildly hemoconcentrated with a hemoglobin of 16. This is consistent with dehydration. D-dimer unremarkable. CMP shows baseline renal sufficiency. Troponin unremarkable. COVID, flu, RSV pending at this time. On reexamination, patient's heart rate has improved with fluids. Patient was updated on all her results. I suspect viral bronchitis. Patient will be prescribed Tessalon Perles as well as informed of [id number] Mucinex for cough. Follow-up with PCP. Return precautions explained. She confirmed understanding of plan. She will look up her COVID, flu, RSV results at home. EKG: Interpreted by me/EM physician: EKG shows sinus tachycardia with a heart rate of 114. No acute ischemic changes. Diagnostic: Interpreted by me/EM physician: Chest x-ray without pneumonia, effusion, cardiomegaly, pneumothorax Impression: 1. Viral bronchitis 2. Dehydration Lab Data Labs: Laboratory Results - last 24 hr 02/07/24 02/07/24 16:29 16:30 WBC 13.1 H RBC 5.56 H Hgb 16.0 H Hct 45.8 MCV 82.4 MCH 28.8 MCHC 34.9 RDW Std Deviation 39.2 RDW Coeff of Enrique 13.3 Plt Count 486 H MPV 9.1 D-Dimer Quant (PE/DVT) < 0.27 L Sodium 131 L Potassium 4.0 Chloride 101 Carbon Dioxide 21.0 Anion Gap 9 BUN 17 Creatinine 1.33 H Estim Creat Clear Calc 33.18 Est GFR (MDRD) Af Amer 58 L Est GFR (MDRD) Non-Af 48 L BUN/Creatinine Ratio 12.8 Glucose 97 Calcium 9.2 Total Bilirubin 0.40 AST 31 ALT 38 Alkaline Phosphatase 142 H Troponin I High Sens < 3 L Total Protein 8.0 Albumin 3.3 Globulin 4.7 H Albumin/Globulin Ratio 0.7 L Radiography Diagnostic Testing: Clinical Impression(s) from Imaging Studies Chest X-Ray 02/07/24 16:00 IMPRESSION: Normal x-ray examination of the chest. Electronically Signed: Fidencio Wall MD at 16:19 EST Reading Location ID and State: [facility] / [place] Tel , Service support , Discharge Plan Triage Chief Complaint: Cough ED Provider: Chad Coleman Dx/Rx/DC Orders Clinical Impression: Acute viral bronchitis Instructions: ED Bronchitis, No Antibiotic (Adult) Prescriptions: New benzonatate 100 mg capsule 100 mg PO BID PRN (Reason: cough) 5 Days Qty: 15 0RF No Action cholecalciferol (vitamin D3) 10 mcg (400 unit) capsule 10 mcg PO DAILY Vitamin B complex PO Rx Instructions: takes 2 gummies daily ondansetron 8 mg tablet,disintegrating 8 mg PO Q8H PRN PRN (Reason: Nausea) Qty: 90 1RF prednisone 1 mg tablet 1.5 mg PO DAILY lorazepam 0.5 mg tablet See Rx Instructions PO QDAY PRN (Reason: anxiety) Qty: 7 0RF Rx Instructions: 1/2 tab (0.25) - 1 tab (0.5mg) orally daily PRN; prednisone 1 mg tablet See Rx Instructions PO QDAY Qty: 45 1RF Rx Instructions: 1.5 tabs (1.5mg) orally daily; levothyroxine 25 mcg tablet 25 mcg PO DAILY 30 Days Qty: 30 0RF Patient Comments: Take 1 tablet by mouth DAILY (6 AM). magnesium 200 mg tablet 200 mg PO DAILY promethazine 25 mg tablet 25 mg PO TID PRN (Reason: nausea and vomiting) Qty: 21 0RF Primary Care Provider: Care Physician,No Primary Referrals: Josiah Wilkins MD [Med Staff - Active Staff] - 3-5 Days Care Physician,No Primary [Primary Care Provider] - 3-5 Days Activity Restrictions/Additional Instructions: Follow-up with your primary care physician. If you do not have 1 follow-up with the 1 provided above. Continue to drink plenty of fluids. If symptoms worsen or change please return back to the ED. Mucinex [id number] as well as Tessalon Perles. Print Language: Amharic Disposition Disposition: Home, Self Care
[2024-02-07 17:00] VITALS: BP 102/78; PULSE 108; RESP 18; TEMP 36.6; O2SAT 99
[2024-02-07 17:01] LABS: Hematocrit 45.8 % (37-47); Mean Corp Hgb Conc 34.9 g/dL (32-36); Mean Corpuscular Hgb 28.8 pg (27.0-32.0); Mean Corpuscular Volume 82.4 fL (81-99); Mean Platelet Vol. 9.1 fl (6.2-12.0); Platelet Count 486 K/mm3 (150-450); RBC Distribution Width CV 13.3 % (11.6-14.6); RBC Distribution Width SD 39.2 fl (35.1-43.9); Red Blood Count 5.56 M/mm3 (4.2-5.4); White Blood Count 13.1 K/mm3 (4.4-11.0)
[2024-02-07] MEDS: 0.9% Normal Saline (1000mL) 1,000 ML 999 ML IV (17:07)
[2024-02-07 17:12] LABS: ALB/GLOB Ratio 0.7 RATIO (0.9-2.4); AST(SGOT) 31 U/L (15-37); Alanine Aminotransfer ALT/SGPT 38 U/L (13-56); Albumin, Serum 3.3 g/dL (3.2-5.0); Alkaline Phosphatase 142 U/L (45-117); Anion Gap 9 (5-15); BUN 17 mg/dL (7-18); BUN/Creat Ratio 12.8 RATIO (10-20); Calcium,Total 9.2 mg/dL (8.5-10.1); Chloride 101 mmol/L (98-107); Creatinine, Serum 1.33 mg/dL (0.55-1.02); EST Glomerular Filtration Rate 48 mL/min (>60); Est Glom Filt Rate - Afr Amer 58 mL/min (>60); Estimated Creatinine Clearance 33.18 ml/min; Globulin 4.7 g/dL (2.2-4.2); Glucose 97 mg/dL (74-106); Sodium Level 131 mmol/L (136-145); Troponin-I HS (w/2H Reflex) < 3 pg/mL (3.0-54.0)
[2024-02-07 17:17] LABS: D-Dimer Quantitative (DVT/PE) < 0.27 FEU/ug/m (0.27-0.49)
[2024-02-07 17:56] VITALS: BP 101/70; PULSE 102; RESP 18; TEMP 36.6; O2SAT 100
[2024-02-07 18:43] LABS: Reflex Troponin-HS? (from REC) Y
== END 2024-02-07 18:13 | disposition home or self-care (01) ==
PROVIDERS: Emergency Medicine; Emergency Provider Surgery; Visit Provider Surgery
DX: J20.8 Acute bronchitis due to other specified organisms (principal); K50.90 Crohn's disease, unspecified, without complications; E86.0 Dehydration; E89.0 Postprocedural hypothyroidism; Z11.52 Encounter for screening for COVID-19; Z79.52 Long term (current) use of systemic steroids; Z79.890 Hormone replacement therapy; Z79.899 Other long term (current) drug therapy
CPT/HCPCS: 71045; 80053; 84484; 85027; 85379; 87631; 93005; 96360; 99283; J7030; A4216

== ENCOUNTER → 2024-02-21 | Outpatient (CLI) | payer OTHER, SELFPAY | END | disposition home or self-care (01) | LOC: LABSPEC 14:37 | PROVIDERS: Referring Provider Physician Assistant; Visit Provider Physician Assistant | DX: J06.9 Acute upper respiratory infection, unspecified (principal) | CPT/HCPCS: 87631 ==

== ENCOUNTER 2024-02-29 17:05 | Emergency (ER) | payer OTHER, SELFPAY ==
[2024-02-29 17:06] VITALS: BP 114/91; PULSE 92; RESP 16; TEMP 36.7; O2SAT 100; BMI 17.3
--- NOTE | 2024-02-29 18:04 | EX.ED.DYSGE1 ---
HPI History of Present Illness Chief Complaint: Palpitations Informant: patient Onset/Context/Timing Onset: Today Context: Gradual Onset Timing: Intermittent Quality: Racing Location: Substernal and left chest Worsened by: Nothing Relieved by: Laying down Narrative Narrative: Patient presents with palpitations that began today. Patient states it felt like her heart was racing today. Patient states it is over the substernal and left chest area. Patient states it gets better when she lays down. Patient states nothing makes it worse. Patient states her symptoms come and go. Patient denies any chest pain or pressure. Patient denies any shortness of breath or cough. Patient denies any nausea or vomiting. Patient denies any diaphoresis. Patient states she does have a history of POTS. [facility] Medical History (Updated 02/29/24 @ 21:[address] Jose Guadalupe Lazo, DO) Acute upper respiratory infection Vitamin D deficiency Underweight Palpitations Non-traumatic compression fracture of vertebra Cholelithiasis Ileostomy in place Anemia Thyroid cancer Home Medications ?Medication ?Instructions ?Recorded ?Last Taken ?Type cholecalciferol (vitamin D3) 10 10 mcg PO DAILY 01/26/22 Unknown History mcg (400 unit) capsule Vitamin B complex PO 06/21/23 Unknown History magnesium 200 mg tablet 200 mg PO DAILY 10/17/23 Unknown History promethazine 25 mg tablet 25 mg PO TID PRN nausea and 10/17/23 Unknown Rx vomiting #21 tabs ondansetron 8 mg disintegrating 8 mg PO Q8H PRN PRN Nausea #90 tabs 11/06/23 Unknown Rx tablet levothyroxine 25 mcg tablet 25 mcg PO DAILY 30 days #30 tabs 01/11/24 Unknown Rx prednisone 1 mg tablet 1.5 mg PO DAILY 01/25/24 Unknown History prednisone 1 mg tablet See Rx Instructions PO QDAY #45 01/25/24 Unknown Rx tabs prednisone 5 mg tablet 5 mg PO DIRECTED #21 tabs 02/21/24 Unknown Rx lorazepam 0.5 mg tablet See Rx Instructions PO QDAY PRN 02/28/24 Unknown Rx anxiety #7 tabs Allergy/AdvReac Type Severity Reaction Status Date / Time adhesive tape Allergy Intermediate Rash Verified 02/29/24 17:06 infliximab Allergy Intermediate Shortness Verified 02/29/24 17:06 of breath adalimumab (From Humira) Allergy NEEDS Verified 02/29/24 17:06 FOLLOW-UP vancomycin Allergy Anaphylaxis Verified 02/29/24 17:06 Family History Father Hypertension Surgical History (Updated 02/29/24 @ 18:[address] Jose Guadalupe Lazo DO) Hx of ileostomy History of cholecystectomy H/O thyroidectomy Social History adopted: No household members: spouse and children pets and animals: Yes (3 dogs) pets and animals: dog(s) Smoking Status: Never smoker alcohol intake: never diet: other what type of physical activity do you participate in: walking and running frequency: 5-6 times per week seatbelt use: always do you feel safe at home: Yes ROS ROS ED Constitutional Constitutional ED: Denies chills or fever(s) Eyes Eyes: Denies blurry vision or change in vision ENT ENT ED: Denies rhinorrhea or sore throat Cardiovascular Cardiovascular: Reports palpitations and racing heartbeat; Denies chest pain Respiratory/Chest Respiratory/Chest: Denies cough or dyspnea Gastrointestinal Gastrointestinal: Denies nausea or vomiting Genitourinary Genitourinary ED: Denies dysuria or hematuria Musculoskeletal Musculoskeletal: Denies back pain or neck pain Integumentary Denies abscess or rash Neurologic Neurologic: Denies headache(s) or weakness Allergic/Immunologic Allergic/Immunologic ED: Denies mouth swelling or urticaria EXAM Physical Exam Const Vital Signs: 02/29/24 17:06 02/29/24 19:06 02/29/24 19:54 Temperature 98.1 F Temperature Source Oral Pulse Rate 92 82 85 Respiratory Rate 16 16 15 Blood Pressure 114/91 H 101/67 Blood Pressure Mean 98 78 Pulse Ox 100 99 99 Oxygen Delivery Method Room Air Room Air Positive well nourished and well developed General Appearance ED: well developed and NAD HEENT Reports moist mucous membranes Neck supple and no JVD Resp normal respiratory effort and clear to auscultation bilaterally Cardio regular rate and regular rhythm GI non-tender and non-distended Palpation: soft Neuro oriented x3, CN's II-XII intact bilaterally and no sensory deficits noted Sensorium / Orientation: alert Motor Exam: strength 5/5 throughout Psych mental status grossly normal MDM MDM MDM Narrative Medical decision making narrative: Differential diagnosis includes cardiac dysrhythmia, cardiac ischemia, electrolyte abnormality, and anxiety. EKG will be obtained to assess for cardiac dysrhythmia and cardiac ischemia. CBC will be obtained to assess for leukocytosis and anemia. Basic metabolic profile will be obtained to assess for electrolyte abnormality and renal function. High-sensitivity troponin will be obtained to assess for cardiac ischemia. Lab Data Attestation: I reviewed the patient's lab results. Lab results narrative: CBC was reviewed. There is a leukocytosis of 15.5. This is only slightly increased from previous results. Hemoglobin was 16.5 and hematocrit was 49.7. Those were slightly elevated at 545. Basic metabolic profile was reviewed. Potassium is low at 3.1. Creatinine was slightly elevated at 1.16. The remainder was within normal limits. High-sensitivity troponin was reviewed and was less than 3. Labs: Laboratory Results - last 24 hr 02/29/24 18:30 WBC 15.5 H RBC 5.79 H Hgb 16.5 H Hct 49.7 H MCV 85.8 MCH 28.5 MCHC 33.2 RDW Std Deviation 43.1 RDW Coeff of Enrique 14.1 Plt Count 545 H MPV 9.0 Neut % (Auto) Not Reportable Absolute Neuts (auto) 12.4 H Absolute Lymphs (auto) 1.86 Total Counted 100 Neutrophils % (Manual) 80 H Lymphocytes % (Manual) 12 L Monocytes % (Manual) 4 Metamyelocytes % 2 H Myelocytes % 2 H Diff Path Review May foll Hypersegmented Neuts 1+ H Atypical Lymphocytes 1+ Plt Morphology Comment LARGE Polychromasia 1+ Anisocytosis 1+ Sodium 137 Potassium 3.1 L Chloride 107 Carbon Dioxide 24.0 Anion Gap 6 BUN 13 Creatinine 1.16 H Estim Creat Clear Calc 38.04 Est GFR (MDRD) Af Amer 68 Est GFR (MDRD) Non-Af 56 L BUN/Creatinine Ratio 11.2 Glucose 101 Calcium 9.2 Troponin I High Sens < 3 L EKG Initial EKG: Attestation: I personally reviewed and interpreted this EKG as follows: Interpretation: Sinus Rhythm (83 with occasional PVCs) Comments: EKG was obtained. On my independent interpretation, it showed a normal sinus rhythm with a rate of 83 with occasional PVCs. PA interval, QRS interval, and QTc intervals were all normal. [place] was normal. There are no acute ST or T wave changes. Prior EKG tracings: available for review Prior: Unchanged (02/07/2024) Treatment and Re-Evaluation :: Patient was given a dose of potassium here. Patient was advised of her findings. Patient has a HEART score of 0. Patient was advised that this is low risk for acute cardiac event. Patient was instructed to continue her medications as previously prescribed. Patient was instructed to follow-up with her primary care physician and arcade games mechanic in 5 to 7 days. Patient was instructed to return if worse in any way. Patient understood and was agreeable with the plan. All questions were answered. Discharge Plan Triage Chief Complaint: Palpitations ED Provider: Jose Guadalupe Lazo Dx/Rx/DC Orders Clinical Impression: Palpitations, Hypokalemia Instructions: ED Palpitations Prescriptions: No Action cholecalciferol (vitamin D3) 10 mcg (400 unit) capsule 10 mcg PO DAILY Vitamin B complex PO Rx Instructions: takes 2 gummies daily ondansetron 8 mg tablet,disintegrating 8 mg PO Q8H PRN PRN (Reason: Nausea) Qty: 90 1RF prednisone 1 mg tablet 1.5 mg PO DAILY prednisone 1 mg tablet See Rx Instructions PO QDAY Qty: 45 1RF Rx Instructions: 1.5 tabs (1.5mg) orally daily; prednisone 5 mg tablet 5 mg PO DIRECTED Qty: 21 0RF Rx Instructions: see taper instructions: 6 tabs x 1, 5 tabs x 1, 4 tabs x 1, 3 tabs x 1, 2 tabs x 1, 1 tab x 1 levothyroxine 25 mcg tablet 25 mcg PO DAILY 30 Days Qty: 30 0RF Patient Comments: Take 1 tablet by mouth DAILY (6 AM). magnesium 200 mg tablet 200 mg PO DAILY promethazine 25 mg tablet 25 mg PO TID PRN (Reason: nausea and vomiting) Qty: 21 0RF lorazepam 0.5 mg tablet See Rx Instructions PO QDAY PRN (Reason: anxiety) Qty: 7 0RF Rx Instructions: 1/2 tab (0.25) - 1 tab (0.5mg) orally daily PRN; Primary Care Provider: Care Physician,No Primary Referrals: Care Physician,No Primary [Primary Care Provider] - 5-7 Days Print Language: Vietnamese Disposition Disposition: Home, Self Care
--- NOTE | 2024-02-29 18:05 | EKG12_ITS ---
Test Reason : PALPS Blood Pressure : */* mmHG Vent. Rate : 83 BPM Atrial Rate : 83 BPM P-R Int : 112 ms QRS Dur : 74 ms QT Int : 360 ms P-R-T Axes : 71 71 58 degrees QTcB Int : 423 ms Sinus rhythm with sinus arrhythmia with occasional Premature ventricular complexes Low voltage QRS Borderline ECG Confirmed by ASIA MUSE, CANDE ([id number]), development editor FRANSICO BURGER ([id number]) on 03/03/2024 6:40:42 AM Referred By: Confirmed By: CANDE BETANCOURT MD
[2024-02-29 19:06] VITALS: PULSE 82; RESP 16; O2SAT 99
[2024-02-29 19:07] LABS: Hematocrit 49.7 % (37-47); Hemoglobin 16.5 g/dL (12.0-15.0); Mean Corp Hgb Conc 33.2 g/dL (32-36); Mean Corpuscular Hgb 28.5 pg (27.0-32.0); Mean Corpuscular Volume 85.8 fL (81-99); POSITIVE COUNT YES; POSITIVE MORPHOLOGY YES; Platelet Count 545 K/mm3 (150-450); RBC Distribution Width CV 14.1 % (11.6-14.6); RBC Distribution Width SD 43.1 fl (35.1-43.9); Red Blood Count 5.79 M/mm3 (4.2-5.4); White Blood Count 15.5 K/mm3 (4.4-11.0)
[2024-02-29 19:25] LABS: Anion Gap 6 (5-15); BUN 13 mg/dL (7-18); BUN/Creat Ratio 11.2 RATIO (10-20); Calcium,Total 9.2 mg/dL (8.5-10.1); Chloride 107 mmol/L (98-107); Creatinine, Serum 1.16 mg/dL (0.55-1.02); EST Glomerular Filtration Rate 56 mL/min (>60); Est Glom Filt Rate - Afr Amer 68 mL/min (>60); Estimated Creatinine Clearance 38.04 ml/min; Glucose 101 mg/dL (74-106); Potassium 3.1 mmol/L (3.5-5.1); Sodium Level 137 mmol/L (136-145); Troponin-I HS < 3 pg/mL (3.0-54.0)
[2024-02-29 19:54] VITALS: BP 101/67; PULSE 85; RESP 15; O2SAT 99
[2024-02-29] MEDS: Potassium Chloride Oral Tablet 20 MEQ 40 MEQ PO (19:54)
--- NOTE | 2024-02-29 20:05 | ED.RN ---
called lab to inquire about CBC
[2024-02-29 20:21] LABS: Differential Indicated MANUAL DIFF
[2024-02-29 20:26] LABS: Lymphocyte 12 % (19-41); Metamyelocyte 2 % (0-1); Monocyte 4 % (0-10); Myelocyte 2 % (0-0); Neutrophil-Segmented 80 % (47-70); Total Cells Counted 100 (MANUAL DIFF)
[2024-02-29 20:27] LABS: Anisocytosis 1+; Atypical Lymphocyte 1+ %; Hypersegmented Neutrophils 1+
[2024-02-29 20:28] LABS: Platelet Morphology LARGE; Polychromasia 1+
[2024-02-29 20:29] LABS: Absolute Lymphocyte Count 1.86 X10^3/uL (0.83-4.51); Absolute Neutrophil Count 12.4 X10^3/uL (2.0-7.7)
[2024-02-29 21:15] VITALS: BP 101/67; PULSE 85; RESP 15; TEMP 36.7; O2SAT 99
[2024-03-04 10:30] LABS: Pathologist Review Reviewed
== END 2024-02-29 21:24 | disposition home or self-care (01) ==
PROVIDERS: Emergency Provider Emergency Medicine; Visit Provider Emergency Medicine
DX: R00.2 Palpitations (principal); E87.6 Hypokalemia; Z85.850 Personal history of malignant neoplasm of thyroid; Z90.49 Acquired absence of other specified parts of digestive tract
CPT/HCPCS: 80048; 84484; 85025; 93005; 99284; A4216

== ENCOUNTER → 2024-03-03 | Outpatient (CLI) | payer OTHER, SELFPAY ==
[2024-03-03 15:56] LABS: Vitamin B12 863 pg/mL (211-911)
[2024-03-03 16:02] LABS: ALB/GLOB Ratio 0.8 RATIO (0.9-2.4); AST(SGOT) 28 U/L (15-37); Alanine Aminotransfer ALT/SGPT 36 U/L (13-56); Albumin, Serum 3.7 g/dL (3.2-5.0); Alkaline Phosphatase 106 U/L (45-117); Anion Gap 8 (5-15); BUN 21 mg/dL (7-18); Calcium,Total 9.5 mg/dL (8.5-10.1); Chloride 101 mmol/L (98-107); EST Glomerular Filtration Rate 42 mL/min (>60); Est Glom Filt Rate - Afr Amer 50 mL/min (>60); Globulin 4.5 g/dL (2.2-4.2); Glucose 100 mg/dL (74-106); Potassium 3.7 mmol/L (3.5-5.1); Protein, Total 8.2 g/dL (6.4-8.2); Sodium Level 135 mmol/L (136-145)
[2024-03-06 13:06] LABS: Anti-Centromere B Ab <0.2 AI (0.0-0.9); Anti-Chromatin <0.2 AI (0.0-0.9); Anti-Jo <0.2 AI (0.0-0.9); Anti-Mitochondrial AB <20.0 Units (0.0-20.0); Anti-Scleroderma-70 AB <0.2 AI (0.0-0.9); Anti-Smooth Muscle ABS 5 Units (0-19); Anti-dsDNA Ab 1 IU/mL (0-9); CRP, High Sensitivity 4.76 mg/L (0.00-3.00); Cytoplasmic Ab (C-ANCA) <1:20 titer (Neg:<1:20); GGTP 26 IU/L (0-60); Perinuclear Ab (P-ANCA) <1:20 titer (Neg:<1:20); RNP Ab <0.2 AI (0.0-0.9); SJOGREN'S Anti-SS-A test < 0.2 AI (0.0-0.9); SJOGREN'S Anti-SS-B test < 0.2 AI (0.0-0.9); Smith Ab <0.2 AI (0.0-0.9)
[2024-03-07 05:06] LABS: Calprotectin, Stool 98 ug/g (0-120)
== END | disposition home or self-care (01) ==
PROVIDERS: PCP Physician Assistant; Referring Provider Nurse Practitioner Acute Care; Visit Provider Nurse Practitioner Acute Care
DX: K90.0 Celiac disease (principal); K50.818 Crohn's disease of both small and large intestine with other complication
CPT/HCPCS: 36415; 80053; 82306; 82607; 82977; 83516; 83630; 83993; 86037; 86141; 86225; 86235

== ENCOUNTER 2024-03-07 21:23 | Emergency (ER) | payer OTHER, SELFPAY ==
[2024-03-07 21:23] VITALS: BP 117/82; PULSE 152; RESP 16; TEMP 36.6; O2SAT 98; BMI 17.2
[2024-03-07 21:25] VITALS: PULSE 122; O2SAT 100
[2024-03-07 21:32] VITALS: O2SAT 100
--- NOTE | 2024-03-07 21:32 | EKG12_ITS ---
Test Reason : PALP Blood Pressure : */* mmHG Vent. Rate : 105 BPM Atrial Rate : 105 BPM P-R Int : 126 ms QRS Dur : 80 ms QT Int : 340 ms P-R-T Axes : 77 86 36 degrees QTcB Int : 449 ms Sinus tachycardia Otherwise normal ECG When compared with ECG of 29-Feb-2024 17:15, Premature ventricular complexes are no longer Present Confirmed by ASIA MUSE, CANDE ([id number]), visual effects editor ELMER GONZALES ([id number]) on 03/10/2024 12:28:10 PM Referred By: BAR Confirmed By: CANDE BETANCOURT MD
--- NOTE | 2024-03-07 21:55 | RAD_ITS ---
INDICATION: chest pain EXAMINATION/TECHNIQUE: X-RAY - portable upright AP chest x-ray COMPARISON: 02/07/2024 FINDINGS: LINES/DEVICES: None. LUNGS: No consolidation, edema or effusion. No pneumothorax. MEDIASTINUM AND CARDIOVASCULAR STRUCTURES: Cardiac silhouette stable within normal limits. BONES AND SOFT TISSUES: Unremarkable. RAD/Chest 1 View (Portable) IMPRESSION: No radiographic evidence of acute cardiopulmonary disease. Electronically Signed: Tarik Kelly MD at 23:05 EST ,
[2024-03-07 22:23] VITALS: BP 107/70; PULSE 128; RESP 22; O2SAT 100
[2024-03-07 22:31] LABS: Absolute Lymphocyte Count 0.98 X10^3/uL (0.83-4.51); Absolute Neutrophil Count 16.6 X10^3/uL (2.0-7.7); Basophil# 0.15 X10^3/uL; Basophil% 0.8 % (0-1); Eosinophils% 0.5 % (0-5); Hemoglobin 16.1 g/dL (12.0-15.0); Lymphocyte # 0.98 X10^3/ul (0.83-4.51); Lymphocyte % 5.1 % (19-41); Mean Corp Hgb Conc 33.5 g/dL (32-36); Mean Corpuscular Hgb 28.6 pg (27.0-32.0); Mean Corpuscular Volume 85.3 fL (81-99); Mean Platelet Vol. 9.1 fl (6.2-12.0); Monocyte# 1.15 X10^3/uL; Monocyte% 5.9 % (0-10); NRBC Flagged by Analyzer 0 % (0-5); Neutrophil # 16.56 X10^3/uL (2.7-7.7); Neutrophil % 85.6 % (47-70); Platelet Count 408 K/mm3 (150-450); RBC Distribution Width CV 13.1 % (11.6-14.6); RBC Distribution Width SD 40.3 fl (35.1-43.9); Red Blood Count 5.63 M/mm3 (4.2-5.4); White Blood Count 19.4 K/mm3 (4.4-11.0)
[2024-03-07 22:49] LABS: Anion Gap 6 (5-15); BUN 22 mg/dL (7-18); BUN/Creat Ratio 14.2 RATIO (10-20); Calcium,Total 9.4 mg/dL (8.5-10.1); Chloride 98 mmol/L (98-107); Creatinine, Serum 1.55 mg/dL (0.55-1.02); EST Glomerular Filtration Rate 40 mL/min (>60); Est Glom Filt Rate - Afr Amer 48 mL/min (>60); Estimated Creatinine Clearance 28.22 ml/min; Glucose 109 mg/dL (74-106); Potassium 3.9 mmol/L (3.5-5.1); Sodium Level 132 mmol/L (136-145); Troponin-I HS (w/2H Reflex) < 3 pg/mL (3.0-54.0)
[2024-03-07 23:00] VITALS: BP 100/73; PULSE 108; RESP 15; O2SAT 100
[2024-03-07 23:07] LABS: Magnesium 2.2 mg/dL (1.6-2.6)
[2024-03-07] MEDS: 0.9% Normal Saline (1000mL) 1,000 ML 999 ML IV (23:34)
[2024-03-07] MEDS: Metoprolol Tartrate 25 MG Tablet PO (23:35)
[2024-03-08] VITALS: BP 101/68; PULSE 110; RESP 18; O2SAT 99
[2024-03-08 00:10] LABS: D-Dimer Quantitative (DVT/PE) < 0.27 FEU/ug/m (0.27-0.49)
[2024-03-08 00:27] LABS: Reflex Troponin-HS? (from REC) Y
[2024-03-08 01:00] VITALS: BP 95/69; PULSE 110; RESP 18; O2SAT 99
[2024-03-08 01:09] LABS: Troponin-I HS < 3 pg/mL (3.0-54.0)
[2024-03-08 01:23] VITALS: O2SAT 100
--- NOTE | 2024-03-08 01:36 | EDS_ITS ---
HPI History of Present Illness Chief Complaint: Palpitations Informant: patient Narrative Narrative: Patient is a 38-year-old female with past medical history of thyroid cancer celiac disease as well as Crohn's disease requiring ostomy and previous diagnosis of POTS. She states that she was recently placed on steroids secondary to a URI and after coming off them she has noticed that her heart is racing approximately to 150 bpm when she ambulates and she feels lightheaded and dizzy with this. She denies any chest discomfort or shortness of breath. She denies any excessive stimulant use or illicit drug use. However because her symptoms are persisting she presents for evaluation [facility] Medical History (Updated 03/17/24 @ 08:[address] Guerrero Fuller, DO) Acute upper respiratory infection Vitamin D deficiency Underweight Palpitations Non-traumatic compression fracture of vertebra Cholelithiasis Ileostomy in place Anemia Thyroid cancer Home Medications ?Medication ?Instructions ?Recorded ?Last Taken ?Type cholecalciferol (vitamin D3) 10 10 mcg PO DAILY 01/26/22 Unknown History mcg (400 unit) capsule Vitamin B complex PO 06/21/23 Unknown History magnesium 200 mg tablet 200 mg PO DAILY 10/17/23 Unknown History promethazine 25 mg tablet 25 mg PO TID PRN nausea and 10/17/23 Unknown Rx vomiting #21 tabs ondansetron 8 mg disintegrating 8 mg PO Q8H PRN PRN Nausea #90 tabs 11/06/23 Unknown Rx tablet levothyroxine 25 mcg tablet 25 mcg PO DAILY 30 days #30 tabs 01/11/24 Unknown Rx prednisone 1 mg tablet See Rx Instructions PO QDAY #45 01/25/24 Unknown Rx tabs lorazepam 0.5 mg tablet See Rx Instructions PO QDAY PRN 02/28/24 Unknown Rx anxiety #7 tabs diltiazem HCl 120 mg 120 mg PO QAM #14 caps 03/08/24 Unknown Rx capsule,extended release 24 hr (Cardizem CD) metoprolol tartrate 25 mg tablet 25 mg PO BID 30 days #60 tabs 03/08/24 Unknown Rx ondansetron 4 mg disintegrating 4 mg PO TID PRN nausea and 03/08/24 Unknown Rx tablet vomiting #21 tabs Allergy/AdvReac Type Severity Reaction Status Date / Time adhesive tape Allergy Intermediate Rash Verified 03/07/24 21:24 infliximab Allergy Intermediate Shortness Verified 03/07/24 21:24 of breath adalimumab (From Humira) Allergy NEEDS Verified 03/07/24 21:24 FOLLOW-UP vancomycin Allergy Anaphylaxis Verified 03/07/24 21:24 Family History Father Hypertension Surgical History (Updated 02/29/24 @ 18:[address] Jose Guadalupe Lazo DO) Hx of ileostomy History of cholecystectomy H/O thyroidectomy Social History adopted: No household members: spouse and children pets and animals: Yes (3 dogs) pets and animals: dog(s) Smoking Status: Never smoker alcohol intake: never diet: other what type of physical activity do you participate in: walking and running frequency: 5-6 times per week seatbelt use: always do you feel safe at home: Yes ROS ROS ED Constitutional Constitutional ED: Denies chills or fever(s) Eyes Eyes: Denies change in vision ENT ENT ED: Denies sore throat Cardiovascular Cardiovascular: Reports racing heartbeat; Denies chest pain or palpitations Respiratory/Chest Respiratory/Chest: Denies cough or dyspnea Gastrointestinal Gastrointestinal: Denies abdominal pain, diarrhea, nausea or vomiting Genitourinary Genitourinary ED: Denies dysuria Musculoskeletal Musculoskeletal: Denies myalgias Integumentary Denies rash Neurologic Neurologic: Reports weakness; Denies headache(s) Hematologic/Lymphatic Hematologic/Lymphatic: Denies easy bleeding or easy bruising EXAM Physical Exam Const Vital Signs: 03/07/24 21:23 03/07/24 21:25 03/07/24 21:32 Temperature 98 F Temperature Source Oral Pulse Rate 152 H 122 H Respiratory Rate 16 Blood Pressure 117/82 H Blood Pressure Mean 93 Pulse Ox 98 100 100 Oxygen Delivery Method Room Air Room Air 03/07/24 22:23 03/07/24 23:00 03/08/24 00:00 Temperature Temperature Source Pulse Rate 128 H 108 H 110 H Respiratory Rate 22 H 15 18 Blood Pressure 107/70 100/73 101/68 Blood Pressure Mean 82 82 79 Pulse Ox 100 100 99 Oxygen Delivery Method Room Air Room Air Room Air 03/08/24 01:00 03/08/24 01:39 Temperature 97.8 F Temperature Source Pulse Rate 110 H 101 H Respiratory Rate 18 18 Blood Pressure 95/69 103/71 Blood Pressure Mean 77 81 Pulse Ox 99 99 Oxygen Delivery Method Room Air Positive well nourished and well developed General Appearance ED: well developed; Negative for pallor HEENT Reports moist mucous membranes HEENT Narrative: No tongue or lip swelling no oral lesions no airway edema or compromise Eyes PERRL and EOMs intact bilaterally General Eye ED: Negative for scleral icterus Neck supple Neck Narrative: No nuchal rigidity or meningeal signs Resp normal respiratory effort and clear to auscultation bilaterally Cardio regular rhythm Rate: tachycardic GI normal to inspection, nondistended, normoactive bowel sounds, non-tender, non- distended and no masses Auscultation: normoactive bowel sounds Palpation: soft Extremity normal to inspection Extremity Narrative: No asymmetric edema no pitting edema negative Homans' sign bilaterally Neuro oriented x3, CN's II-XII intact bilaterally and no sensory deficits noted Sensorium / Orientation: alert Motor Exam: strength 5/5 throughout Psych mental status grossly normal Skin no rashes or lesions noted General Skin Exam: Negative for jaundice or pallor MDM MDM MDM Narrative Medical decision making narrative: Patient arrived to the ER tachycardia at approximate 150. With concern for an abnormal cardiac rhythm and EKG was obtained which showed sinus tachycardia. In order to ensure that her tachycardia is not due to acute blood loss anemia versus acute kidney injury versus electrolyte abnormality or even potential PE or acute coronary syndrome basic blood work was obtained. The patient's white count is elevated at 19.4 but she recently did steroids and this is most likely the cause of the leukocytosis. Initial and delta troponin were less than 3 going against ACS and she had no cardiac dysrhythmia while on the monitor. D- dimer is also normal going against PE or dissection as a cause and she does not have signs of acute blood loss anemia or clinically significant electrolyte abnormality. After receiving medication in the ER her heart rate reduced and she was able to ambulate and her heart rate stayed at roughly 100 bpm. Therefore with improvement of symptoms and overall negative workup there is no need for further evaluation in the ER she is otherwise safe for discharge History & Record Review Discussion w/independent historian: Patient Lab Data Attestation: I reviewed the patient's lab results. Labs: Laboratory Results - last 24 hr 03/07/24 03/08/24 22:17 00:37 WBC 19.4 H RBC 5.63 H Hgb 16.1 H Hct 48.0 H MCV 85.3 MCH 28.6 MCHC 33.5 RDW Std Deviation 40.3 RDW Coeff of Enrique 13.1 Plt Count 408 MPV 9.1 Immature Gran % (Auto) 2.100 H Neut % (Auto) 85.6 H Lymph % (Auto) 5.1 L [place] % (Auto) 5.9 Eos % (Auto) 0.5 Baso % (Auto) 0.8 Absolute Neuts (auto) 16.6 H Absolute Lymphs (auto) 0.98 Nucleated RBC % 0 D-Dimer Quant (PE/DVT) < 0.27 L Sodium 132 L Potassium 3.9 Chloride 98 Carbon Dioxide 28.0 Anion Gap 6 BUN 22 H Creatinine 1.55 H Estim Creat Clear Calc 28.22 Est GFR (MDRD) Af Amer 48 L Est GFR (MDRD) Non-Af 40 L BUN/Creatinine Ratio 14.2 Glucose 109 H Calcium 9.4 Magnesium 2.2 Troponin I High Sens < 3 L < 3 L TSH 2.120 Radiography Diagnostic Testing: Clinical Impression(s) from Imaging Studies Chest X-Ray 03/07/24 21:55 IMPRESSION: No radiographic evidence of acute cardiopulmonary disease. Electronically Signed: Tarik Kelly MD at 23:05 EST Reading Location ID and State: [address] [place] [address] Tel , Service support , Chest x-ray as interpreted by the emergency physician reveals no acute infiltrate pneumothorax or pleural effusion Discharge Plan Triage Chief Complaint: Palpitations ED Provider: Guerrero Fuller Dx/Rx/DC Orders Clinical Impression: Sinus tachycardia, Postural orthostatic tachycardia syndrome [POTS], Celiac disease Instructions: Understanding Tachycardia Prescriptions: New metoprolol tartrate 25 mg tablet 25 mg PO BID 30 Days Qty: 60 0RF ondansetron 4 mg tablet,disintegrating 4 mg PO TID PRN (Reason: nausea and vomiting) Qty: 21 0RF No Action cholecalciferol (vitamin D3) 10 mcg (400 unit) capsule 10 mcg PO DAILY Vitamin B complex PO Rx Instructions: takes 2 gummies daily ondansetron 8 mg tablet,disintegrating 8 mg PO Q8H PRN PRN (Reason: Nausea) Qty: 90 1RF prednisone 1 mg tablet See Rx Instructions PO QDAY Qty: 45 1RF Rx Instructions: 1.5 tabs (1.5mg) orally daily; levothyroxine 25 mcg tablet 25 mcg PO DAILY 30 Days Qty: 30 0RF Patient Comments: Take 1 tablet by mouth DAILY (6 AM). magnesium 200 mg tablet 200 mg PO DAILY promethazine 25 mg tablet 25 mg PO TID PRN (Reason: nausea and vomiting) Qty: 21 0RF lorazepam 0.5 mg tablet See Rx Instructions PO QDAY PRN (Reason: anxiety) Qty: 7 0RF Rx Instructions: 1/2 tab (0.25) - 1 tab (0.5mg) orally daily PRN; diltiazem HCl [Cardizem CD] 120 mg capsule,extended release 24hr 120 mg PO QAM Qty: 14 0RF Primary Care Provider: Antonio Roman Referrals: Raghu Marcos MD [Med Staff - Active Staff] - Antonio Roman PA [Primary Care Provider] - Activity Restrictions/Additional Instructions: Please begin taking the metoprolol twice a day to control your heart rate better. Follow-up with Dr. Marcos/cardiology for further evaluation and discuss any potential medication changes to help with your POTS/tachycardia. If you have any further concerns please return the hospital for repeat evaluation Print Language: [place] Disposition Disposition: Home, Self Care Discharge Date/Time: 03/08/24 01:54
[2024-03-08 01:39] VITALS: BP 103/71; PULSE 101; RESP 18; TEMP 36.6; O2SAT 99
== END 2024-03-08 01:54 | disposition home or self-care (01) ==
PROVIDERS: Emergency Medicine; Emergency Provider Emergency Medicine; PCP Physician Assistant; Visit Provider Emergency Medicine
DX: R00.0 Tachycardia, unspecified (principal); Z93.2 Ileostomy status; G90.A Postural orthostatic tachycardia syndrome [POTS]; R00.2 Palpitations; K90.0 Celiac disease; Z79.890 Hormone replacement therapy; Z79.899 Other long term (current) drug therapy; Z85.850 Personal history of malignant neoplasm of thyroid
CPT/HCPCS: 71045; 80048; 83735; 84443; 84484; 85025; 85379; 93005; 96360; 99284

== ENCOUNTER → 2024-03-24 | Outpatient (CLI) | payer OTHER, SELFPAY | END | disposition home or self-care (01) | LOC: BIMLAB 08:03 | PROVIDERS: PCP Physician Assistant; Referring Provider Physician Assistant; Visit Provider Physician Assistant | DX: R53.83 Other fatigue (principal) | CPT/HCPCS: 36415; 82533 ==

== ENCOUNTER → 2024-03-25 | Outpatient (CLI) | payer OTHER, SELFPAY | END | disposition home or self-care (01) | PROVIDERS: PCP Physician Assistant; Referring Provider Physician Assistant; Visit Provider Physician Assistant | DX: R00.0 Tachycardia, unspecified (principal) ==

== ENCOUNTER → 2024-04-10 | Outpatient (CLI) | payer OTHER, SELFPAY ==
--- NOTE | 2024-04-10 09:52 | ECHOD_ITS ---
Reason For Study: Tachycardia Procedure This was a 2D Doppler, Color Flow transthoracic echocardiogram. Exam performed in department. Left Ventricle Normal size and thickness. Borderline LV systolic dysfunction. Mild generalized hypokinesis. Estimated LVEF 45%. Right Ventricle Normal right ventricle. Atria The left and right atria are normal. Mitral Valve Trivial mitral valve insufficiency. Tricuspid Valve Trivial tricuspid valve insufficiency. Normal pulmonary artery pressure. Aortic Valve Normal aortic valve. Pulmonic Valve Normal pulmonic valve. Great Vessels Normal sized aortic root. Pericardium/Pleural No pericardial effusion. MMode/2D Measurements & Calculations LVIDd: 4.1 cm IVSd: 0.48 cm Ao root diam: 2.3 cm LVIDs: 2.9 cm LVPWd: 0.52 cm RVDd: 2.2 cm FS: 29.3 % _ LAV(MOD-bp): 9.3 ml LVAd ap4: 15.6 cm2 SV(MOD-sp4): 18.8 ml LAV(MOD-bp) Indexed: 7.6 ml/m2 LVLd ap4: 5.5 cm SI(MOD-sp4): 15.5 ml/m2 LAV(MOD-sp2): 11.8 ml EDV(MOD-sp4): 37.0 ml LAV(MOD-sp4): 7.4 ml EDV(sp4-el): 38.0 ml LVAs ap4: 9.9 cm2 LVLs ap4: 4.6 cm ESV(MOD-sp4): 18.2 ml ESV(sp4-el): 18.2 ml EF(MOD-sp4): 50.8 % EF(sp4-el): 52.1 % _ SV(sp4-el): 19.8 ml LA A4 area: 5.3 cm2 LA dimension(2D): 2.5 cm _ RA A4 area: 4.7 cm2 TAPSE: 1.2 cm Time Measurements MV dec time: 0.17 sec Doppler Measurements & Calculations MV E max martin: 55.4 cm/sec Lat Peak E' Martin: 14.9 cm/sec Med Peak E' Martin: 12.1 cm/sec MV A max martin: 44.7 cm/sec E/E' lat: 3.7 E/E' med: 4.6 MV E/A: 1.2 _ MV V2 max: 65.8 cm/sec MV P1/2t max martin: 65.3 cm/sec Ao V2 max: 79.2 cm/sec MV max P.7 mmHg MV P1/2t: 59.6 msec Ao max P.5 mmHg MV V2 mean: 35.1 cm/sec Ao V2 mean: 57.6 cm/sec MV mean P.58 mmHg MV dec slope: 320.7 cm/sec2 Ao mean P.5 mmHg MV V2 VTI: 18.7 cm MVA(P1/2t): 3.7 cm2 Ao V2 VTI: 16.1 cm AV (velocity ratio): 1.0 _ LV V1 max: 82.5 cm/sec PA V2 max: 86.9 cm/sec TR max martin: 202.5 cm/sec LV V1 max P.7 mmHg PA V2 mean: 60.1 cm/sec TR max P.4 mmHg LV V1 mean P.6 mmHg LV V1 mean: 58.2 cm/sec LV V1 VTI: 16.5 cm ECHO/Echo Complete Interpretation Summary Borderline LV systolic dysfunction. Mild generalized hypokinesis. Estimated LVE F 45%. Ordering Physician: Antonio Roman Referring Physician: Antonio Roman Performed By: Chad Botello RCS
== END | disposition home or self-care (01) ==
PROVIDERS: PCP Physician Assistant; Referring Provider Physician Assistant; Visit Provider Physician Assistant
DX: R94.31 Abnormal electrocardiogram [ECG] [EKG] (principal)
CPT/HCPCS: 93306

== ENCOUNTER 2024-05-12 22:19 | Observation (INO) | payer OTHER, SELFPAY ==
[2024-05-12 22:20] VITALS: BP 92/59; PULSE 117; RESP 18; TEMP 36.4; O2SAT 99; BMI 16.5
[2024-05-12 22:43] VITALS: BP 84/64; BP 85/69; BP 95/69; PULSE 100; PULSE 104
[2024-05-12] MEDS: 0.9% Normal Saline (500mL Bag) 500 ML 1000 ML IV (23:08)
[2024-05-12 23:09] VITALS: BP 85/69; PULSE 84; RESP 17; O2SAT 100
[2024-05-12 23:30] VITALS: BP 87/59; PULSE 80; RESP 16; O2SAT 98
--- NOTE | 2024-05-12 23:40 | EX.ED.DYSGE1 ---
HPI <Dr. Rudi Chiu MD - Last Filed: 05/13/24 08:47> History of Present Illness Chief Complaint: Sore Throat Detail of Chief Complaint: Sore throat Informant: patient Onset/Context/Timing Onset: Days (Patient not felt well for approximately 2 days with sore throat) Context: Sudden Onset Timing: Continuous Quality: Pain Location: Throat Current Severity: Mild Maximum Severity: Moderate Worsened by: Swallowing Relieved by: Nothing Associated Symptoms Associated Symptoms: Also concern for weight loss Narrative Narrative: Patient is a 38-year-old female. She has history of Crohn's disease. She has a colostomy. She is scheduled to see Dr. Lane this week. She denies fever or chills. She denies rhinorrhea, congestion postnasal drainage. She denies cough. She does endorse thirst, dry mouth and lightheadedness with standing. Patient states if she eats anything it goes straight through her . Patient denies headache, visual, ocular auditory symptoms. Patient denies dysuria, frequency, urgency or hematuria. Patient denies blood or mucus in the colostomy bag. The fecal material is brown in color to dark brown. Prior similar symptoms: Yes Recent Illness/Hospitalization: No PFSH <Dr. Rudi Chiu MD - Last Filed: 05/13/24 08:47> PFSH Medical History POTS (postural orthostatic tachycardia syndrome) Acute upper respiratory infection Vitamin D deficiency Underweight Palpitations Non-traumatic compression fracture of vertebra Cholelithiasis Ileostomy in place Anemia Thyroid cancer Home Medications ?Medication ?Instructions ?Recorded ?Last Taken ?Type cholecalciferol (vitamin D3) 10 10 mcg PO DAILY 01/26/22 Unknown History mcg (400 unit) capsule magnesium 200 mg tablet 200 mg PO DAILY 10/17/23 Unknown History promethazine 25 mg tablet 25 mg PO TID PRN nausea and 10/17/23 Unknown Rx vomiting #21 tabs levothyroxine 25 mcg tablet 25 mcg PO DAILY 30 days #30 tabs 01/11/24 Unknown Rx ondansetron 4 mg disintegrating 4 mg PO TID PRN nausea and 03/08/24 Unknown Rx tablet vomiting #21 tabs vitamin B complex 1 tab PO QDAY 04/07/24 Unknown History ivabradine 5 mg tablet 2.5 mg (1/2 x 5 mg) PO .COMPLEX 04/25/24 Unknown Rx #90 tabs fludrocortisone 0.1 mg tablet 0.05 mg (1/2 x 0.1 mg) PO BID #60 05/09/24 Unknown Rx tabs Allergy/AdvReac Type Severity Reaction Status Date / Time adhesive tape Allergy Intermediate Rash Verified 05/12/24 22:20 infliximab Allergy Intermediate Shortness Verified 05/12/24 22:20 of breath adalimumab (From Humira) Allergy NEEDS Verified 05/12/24 22:20 FOLLOW-UP vancomycin Allergy Anaphylaxis Verified 05/12/24 22:20 Family History Father Hypertension Grandmother Colon cancer Grandfather Cancer Grandfather Cancer Surgical History Hx of ileostomy History of cholecystectomy H/O thyroidectomy Social History adopted: No household members: spouse and children pets and animals: Yes (3 dogs) pets and animals: dog(s) Smoking Status: Never smoker alcohol intake: never diet: other what type of physical activity do you participate in: walking and running frequency: 5-6 times per week seatbelt use: always do you feel safe at home: Yes ROS <Dr. Rudi Chiu MD - Last Filed: 05/13/24 08:47> ROS ED Constitutional Constitutional ED: Reports weight loss and other Details: Patient reports 10 pound weight loss over 2 months which is significant for patient since she only weighs 77 pounds. ; Denies chills, fever(s), subjective or sweats Eyes Eyes: Denies blurry vision or change in vision ENT ENT ED: Reports sore throat; Denies ear pain or rhinorrhea Cardiovascular Cardiovascular: Denies chest pain, orthopnea, palpitations or paroxysmal nocturnal dyspnea Respiratory/Chest Respiratory/Chest: Denies cough, dyspnea, dyspnea on exertion, orthopnea or paroxysmal nocturnal dyspnea Gastrointestinal Gastrointestinal: Reports abdominal pain and diarrhea; Denies constipation, melena, nausea or vomiting Genitourinary Genitourinary ED: Denies dysuria, hematuria or urinary frequency Musculoskeletal Musculoskeletal: Denies arthralgias, back pain or neck pain Neurologic Neurologic: Reports weakness; Denies headache(s) Hematologic/Lymphatic Hematologic/Lymphatic: Reports systems reviewed and no addt'l complaints, except as documented EXAM <Dr. Rudi Chiu MD - Last Filed: 05/13/24 08:47> Physical Exam Const Vital Signs: 05/12/24 22:20 05/12/24 22:43 05/12/24 23:09 Temperature 97.5 F L Temperature Source Oral Pulse Rate 117 H 84 Pulse Rate [Lying] 100 Pulse Rate [Sitting (for 1 minute prior to obtaining)] 100 Pulse Rate [Standing (for 1 minute prior to obtaining)] 104 H Respiratory Rate 18 17 Blood Pressure 92/59 L 85/69 L Blood Pressure [Lying] 84/64 L Blood Pressure [Sitting (for 1 minute prior to obtaining)] 95/69 Blood Pressure [Standing (for 1 minute prior to obtaining)] 85/69 L Blood Pressure Mean 70 74 Blood Pressure Mean [Lying] 70 Blood Pressure Mean [Sitting (for 1 minute prior to obtaining)] 77 Blood Pressure Mean [Standing (for 1 minute prior to obtaining)] 74 Pulse Ox 99 100 Oxygen Delivery Method Room Air Room Air 05/12/24 23:30 05/12/24 23:54 05/13/24 01:00 Temperature Temperature Source Pulse Rate 80 82 92 Pulse Rate [Lying] Pulse Rate [Sitting (for 1 minute prior to obtaining)] Pulse Rate [Standing (for 1 minute prior to obtaining)] Respiratory Rate 16 16 16 Blood Pressure 87/59 L 78/49 L 90/62 Blood Pressure [Lying] Blood Pressure [Sitting (for 1 minute prior to obtaining)] Blood Pressure [Standing (for 1 minute prior to obtaining)] Blood Pressure Mean 68 58 71 Blood Pressure Mean [Lying] Blood Pressure Mean [Sitting (for 1 minute prior to obtaining)] Blood Pressure Mean [Standing (for 1 minute prior to obtaining)] Pulse Ox 98 98 98 Oxygen Delivery Method Room Air Room Air Room Air Blood pressure is low. Patient states her blood pressure is always low. Orthostatic vital signs are negative. Positive well developed and cachectic Constitutional Narrative: Patient does not look well. General Appearance ED: well developed, cachectic and pallor; Negative for cyanotic, diaphoretic or NAD Nutritional Appearance: cachectic HEENT Reports dry mucous membranes HEENT Narrative: Ears normal. TMs normal. Nares patent. Posterior pharynx reveals midline uvula no deviation with protrusion. There is slight erythema. Mouth ED: Yes dry mucous membranes Mouth: dry mucous membranes Eyes PERRL and EOMs intact bilaterally General Eye ED: Negative for pale conjunctiva or scleral icterus Neck no lymphadenopathy, supple and no JVD Resp normal respiratory effort and clear to auscultation bilaterally Cardio regular rhythm, S1 normal heart sound, S2 normal heart sound and no murmurs Rate: tachycardic GI normal to inspection, nondistended, normoactive bowel sounds, non-tender, non-distended and no masses; Negative for hepatosplenomegaly Back/Spine no CVA tenderness Extremity normal to inspection General Extremety ED: Negative for edema or tenderness General Extremity: Negative for edema Neuro oriented x3 and CN's II-XII intact bilaterally Sensorium / Orientation: alert Psych mental status grossly normal Skin no rashes or lesions noted, no wounds and No skin turgor normal General Skin Exam: pallor; Negative for jaundice <Dr. Damaris Almaraz, DO - Last Filed: 05/13/24 04:07> Physical Exam Const Vital Signs: 05/12/24 22:20 05/12/24 22:43 05/12/24 23:09 Temperature 97.5 F L Temperature Source Oral Pulse Rate 117 H 84 Pulse Rate [Lying] 100 Pulse Rate [Sitting (for 1 minute prior to obtaining)] 100 Pulse Rate [Standing (for 1 minute prior to obtaining)] 104 H Respiratory Rate 18 17 Blood Pressure 92/59 L 85/69 L Blood Pressure [Lying] 84/64 L Blood Pressure [Sitting (for 1 minute prior to obtaining)] 95/69 Blood Pressure [Standing (for 1 minute prior to obtaining)] 85/69 L Blood Pressure Mean 70 74 Blood Pressure Mean [Lying] 70 Blood Pressure Mean [Sitting (for 1 minute prior to obtaining)] 77 Blood Pressure Mean [Standing (for 1 minute prior to obtaining)] 74 Pulse Ox 99 100 Oxygen Delivery Method Room Air Room Air 05/12/24 23:30 05/12/24 23:54 05/13/24 01:00 Temperature Temperature Source Pulse Rate 80 82 92 Pulse Rate [Lying] Pulse Rate [Sitting (for 1 minute prior to obtaining)] Pulse Rate [Standing (for 1 minute prior to obtaining)] Respiratory Rate 16 16 16 Blood Pressure 87/59 L 78/49 L 90/62 Blood Pressure [Lying] Blood Pressure [Sitting (for 1 minute prior to obtaining)] Blood Pressure [Standing (for 1 minute prior to obtaining)] Blood Pressure Mean 68 58 71 Blood Pressure Mean [Lying] Blood Pressure Mean [Sitting (for 1 minute prior to obtaining)] Blood Pressure Mean [Standing (for 1 minute prior to obtaining)] Pulse Ox 98 98 98 Oxygen Delivery Method Room Air Room Air Room Air [facility] <Dr. Rudi Chiu MD - Last Filed: 05/13/24 08:47> [facility] Narrative Medical decision making narrative: Rapid strep screen was obtained. Orthostatic vital signs will obtain because of her low blood pressure. She is orthostatic negative. CBC was obtained to assess H&H as well as white count. BMP to assess renal function, CO2 anion gap and electrolytes and specifically evaluate for hypokalemia since she has had decreased output through her colostomy. Patient care transfered to Dr. almaraz to make disposition pending results of additional laboratory results. Sung: Patient signed out to me pending labs. Patient is chronically ill-appearing but no acute distress. Is poorly complaining of sore throat more than anything else. Has had continued increased ileostomy output. Bicarb was low at 14.3 and VBG added on. VBG shows metabolic acidosis with pH of 7.198 and a bicarb of 14.7. Patient ordered additional liter of IV fluids. Will add on further labs and plan for admission for metabolic acidosis likely from starvation/dehydration. Some of this could be from loss associated with her ileostomy. Patient does have a leukocytosis of 19.7 per chart view shows this is a bit more chronic for her. Strep swab is negative but throat culture is ordered. Is given dose of Unasyn given her sore throat, immunocompromise state and leukocytosis. Abdomen is soft and she is not complaining of pain at this time so CT abdomen pelvis is not performed. Chest x-ray is also added on looking for further cause of her leukocytosis. Flu swab is added on. Case discussed with admitting physician, Dr. Wilkins. History & Record Review Additional record(s) reviewed:: Prior outpatient record (Records from outside facility indicates she is approved for MRI. Problems listed was celiac disease not Crohn's. Also outpatient internal medicine visit by Dr. Cheatham. Also internal medicine note by SHASTA Asher.), Prior ED visit (She has had several ER visits for acute bronchitis, dehydration and celiac disease.) and Prior labs Lab Data Attestation: I reviewed the patient's lab results. Lab results narrative: Patient has hyponatremia. CO2 is 14.3 with a normal anion gap. BUN and creatinine are at patient's baseline. Will obtain VBG to see if patient has a acidosis. Labs: Laboratory Results - last 24 hr 05/12/24 05/13/24 23:00 00:47 WBC 19.7 H RBC 4.86 Hgb 14.1 Hct 40.6 MCV 83.5 MCH 29.0 MCHC 34.7 RDW Std Deviation 40.0 RDW Coeff of Enrique 13.4 Plt Count 411 MPV 8.9 Immature Gran % (Auto) 1.800 H Neut % (Auto) 82.3 H Lymph % (Auto) 8.6 L [place] % (Auto) 5.6 Eos % (Auto) 1.0 Baso % (Auto) 0.7 Absolute Neuts (auto) 16.2 H Absolute Lymphs (auto) 1.70 Nucleated RBC % 0 Sodium 130 L Potassium 4.2 Chloride 100 Carbon Dioxide 14.3 L Anion Gap 15 BUN 20 H Creatinine 1.54 H Estim Creat Clear Calc 27.43 L Est GFR (MDRD) Non-Af 44 L BUN/Creatinine Ratio 12.8 Glucose 113 H Calcium 9.7 Total Bilirubin 0.35 Direct Bilirubin 0.17 AST 26 ALT 20 Alkaline Phosphatase 139 H Total Protein 7.1 Albumin [address]'s note reveals that patient has both Crohn's disease and celiac disease. Will obtain liver profile to assess total protein albumin since clinically she is malnourished. Because of the low CO2 a VBG was obtained. CBC was also obtained to assess white count and differential. Patient has an ileostomy not a colostomy after reading the GI notes. ABG Data ABG results: ABG 05/13/24 00:43 Specimen Type ANABELA Sample Site Not entered VBG pH 7.20 L VBG pO2 35 VBG HCO3 15 L VBG Total CO2 16 L VBG O2 Sat (Calc) 55 VBG Base Excess -13 L POC Mix VBG pCO2 Pt Tmp 37.8 L O2 Delivery Device Room Air Crit Call To/Read Back Yes Blood Gas Notified Whom Dr Chiu Blood Gas Notified Time 00:46:26 Radiography Diagnostic Testing: Clinical Impression(s) from Imaging Studies Chest X-Ray 05/13/24 01:19 IMPRESSION: No evidence of acute disease. Suggestion of osteopenia with note of multilevel endplate biconcave compression deformities midthoracic through upper lumbar visualized spine, can not exclude underlying metabolic disorder, clinically correlate. Reading Location: [facility] Treatment and Re-Evaluation :: Heart rate has improved after 1 L of normal saline <Dr. Damaris Almaraz, DO - Last Filed: 05/13/24 04:07> [facility] MDM Narrative Medical decision making narrative: Rapid strep screen was obtained. Orthostatic vital signs will obtain because of her low blood pressure. She is orthostatic negative. CBC was obtained to assess H&H as well as white count. BMP to assess renal function, CO2 anion gap and electrolytes and specifically evaluate for hypokalemia since she has had decreased output through her colostomy. Sung: Patient signed out to me pending labs. Patient is chronically ill-appearing but no acute distress. Is poorly complaining of sore throat more than anything else. Has had continued increased ileostomy output. Bicarb was low at 14.3 and VBG added on. VBG shows metabolic acidosis with pH of 7.198 and a bicarb of 14.7. Patient ordered additional liter of IV fluids. Will add on further labs and plan for admission for metabolic acidosis likely from starvation/dehydration. Some of this could be from loss associated with her ileostomy. Patient does have a leukocytosis of 19.7 per chart view shows this is a bit more chronic for her. Strep swab is negative but throat culture is ordered. Is given dose of Unasyn given her sore throat, immunocompromise state and leukocytosis. Abdomen is soft and she is not complaining of pain at this time so CT abdomen pelvis is not performed. Chest x-ray is also added on looking for further cause of her leukocytosis. Flu swab is added on. Case discussed with admitting physician, Dr. Wilkins. Lab Data Labs: Laboratory Results - last 24 hr 05/12/24 05/13/24 23:00 00:47 WBC 19.7 H RBC 4.86 Hgb 14.1 Hct 40.6 MCV 83.5 MCH 29.0 MCHC 34.7 RDW Std Deviation 40.0 RDW Coeff of Enrique 13.4 Plt Count 411 MPV 8.9 Immature Gran % (Auto) 1.800 H Neut % (Auto) 82.3 H Lymph % (Auto) 8.6 L [place] % (Auto) 5.6 Eos % (Auto) 1.0 Baso % (Auto) 0.7 Absolute Neuts (auto) 16.2 H Absolute Lymphs (auto) 1.70 Nucleated RBC % 0 Sodium 130 L Potassium 4.2 Chloride 100 Carbon Dioxide 14.3 L Anion Gap 15 BUN 20 H Creatinine 1.54 H Estim Creat Clear Calc 27.43 L Est GFR (MDRD) Non-Af 44 L BUN/Creatinine Ratio 12.8 Glucose 113 H Calcium 9.7 Total Bilirubin 0.35 Direct Bilirubin 0.17 AST 26 ALT 20 Alkaline Phosphatase 139 H Total Protein 7.1 Albumin 3.7 Globulin 3.4 ABG Data ABG results: ABG 05/13/24 00:43 Specimen Type ANABELA Sample Site Not entered VBG pH 7.20 L VBG pO2 35 VBG HCO3 15 L VBG Total CO2 16 L VBG O2 Sat (Calc) 55 VBG Base Excess -13 L POC Mix VBG pCO2 Pt Tmp 37.8 L O2 Delivery Device Room Air Crit Call To/Read Back Yes Blood Gas Notified Whom Dr Chiu Blood Gas Notified Time 00:46:26 Radiography Chest X-Ray - ED: 2 View, Read by ED Physician, Read by Radiologist and No Acute Disease Diagnostic Testing: Clinical Impression(s) from Imaging Studies Chest X-Ray 05/13/24 01:19 IMPRESSION: No evidence of acute disease. Suggestion of osteopenia with note of multilevel endplate biconcave compression deformities midthoracic through upper lumbar visualized spine, can not exclude underlying metabolic disorder, clinically correlate. Reading Location: [id number] Management Discussion w/another healthcare provider: Hospitalist Discharge Plan Dx/Rx/DC Orders Clinical Impression: Dehydration, Metabolic acidosis, Crohn's disease, Unintentional weight loss of 5% body weight or less within 1 month, Adult celiac disease, Chronic diarrhea Disposition Disposition: Acute Care Hospital [facility] Discharge Date/Time: 05/13/24 03:20
[2024-05-12 23:51] LABS: Anion Gap 15 (5-15); BUN 20 mg/dL (4-19); BUN/Creat Ratio 12.8 RATIO (10-20); Calcium,Total 9.7 mg/dL (7.6-11.0); Carbon Dioxide 14.3 mmol/L (21.0-32.0); Chloride 100 mmol/L (98-108); Creatinine, Serum 1.54 mg/dL (0.70-1.20); EST Glomerular Filtration Rate 44 (>60); Estimated Creatinine Clearance 27.43 ml/min (50-250); Glucose 113 mg/dL (70-99); Potassium 4.2 mmol/L (3.3-5.1); Sodium Level 130 mmol/L (133-145)
[2024-05-12 23:54] VITALS: BP 78/49; PULSE 82; RESP 16; O2SAT 98
[2024-05-13] VITALS (10 sets, daily range): BP systolic 83–90; BP diastolic 49–62; PULSE 56–92; RESP 12–26; TEMP 36.6–36.9; O2SAT 98–100; BMI 17.1
[2024-05-13 00:49] LABS: Blood Gas Specimen Type VEN; O2 Delivery Device Room Air; SITE Not entered; VBG BASE EXCESS -13 mmol/L (-1.0-3.5); VBG Bicarbonate 15 mmol/L (22-26); VBG PO2 35 mmHg (25-40); VBG SO2 55 % (50-70); VBG TCO2 16 mmol/L (23-33); VBG pCO2 37.8 mmHg (41-51)
[2024-05-13 00:54] LABS: Absolute Neutrophil Count 16.2 X10^3/uL (2.0-7.7); Basophil# 0.14 X10^3/uL; Basophil% 0.7 % (0-1); Eosinophil# 0.19 X10^3/uL; Hematocrit 40.6 % (37-47); Hemoglobin 14.1 g/dL (12.0-15.0); Lymphocyte % 8.6 % (19-41); Mean Corp Hgb Conc 34.7 g/dL (32-36); Mean Corpuscular Volume 83.5 fL (81-99); Mean Platelet Vol. 8.9 fl (6.2-12.0); Monocyte% 5.6 % (0-10); NRBC Flagged by Analyzer 0 % (0-5); Neutrophil # 16.17 X10^3/uL (2.7-7.7); Neutrophil % 82.3 % (47-70); Platelet Count 411 K/mm3 (150-450); RBC Distribution Width CV 13.4 % (11.6-14.6); Red Blood Count 4.86 M/mm3 (4.2-5.4); White Blood Count 19.7 K/mm3 (4.4-11.0)
[2024-05-13 01:16] LABS: AST(SGOT) 26 U/L (<=31); Alanine Aminotransfer ALT/SGPT 20 U/L (<=34); Albumin, Serum 3.7 g/dL (3.5-5.0); Alkaline Phosphatase 139 U/L (35-104); Bilirubin, Direct 0.17 mg/dL (0.00-0.30); Globulin 3.4 g/dL (2.2-4.2); Protein, Total 7.1 g/dL (5.9-8.4); Total Bilirubin 0.35 mg/dL (0.00-1.30)
--- NOTE | 2024-05-13 01:19 | RAD_ITS ---
PROCEDURE: CHEST PA AND LATERAL REASON FOR EXAM: Leukocytosis TECHNIQUE: PA and lateral views of the chest. COMPARISON: 02/07/2024 and 03/07/2024. FINDINGS: The lungs are clear. No pleural effusion. The cardiac and mediastinal contours appear within limits. Suggestion of osteopenia with note of multilevel endplate biconcave compression deformities midthoracic through upper lumbar visualized spine, can not exclude underlying metabolic disorder, clinically correlate. RAD/Chest PA and Lateral IMPRESSION: No evidence of acute disease. Suggestion of osteopenia with note of multilevel endplate biconcave compression deformities midthoracic through upper lumbar visualized spine, can not exclude underlying metabolic disorder, clinically cor relate. Reading Location: [id number]
--- NOTE | 2024-05-13 01:30 | EX.ED.DYSGE1 ---
HPI <Dr. Damaris Almaraz DO - Last Filed: 05/13/24 04:12> History of Present Illness Chief Complaint: Sore Throat Detail of Chief Complaint: Sore throat Informant: patient Onset/Context/Timing Onset: Days (Patient not felt well for approximately 2 days with sore throat) Context: Sudden Onset Timing: Continuous Quality: Pain Location: Throat Current Severity: Mild Maximum Severity: Moderate Worsened by: Swallowing Relieved by: Nothing Associated Symptoms Associated Symptoms: Also concern for weight loss Narrative Narrative: Patient is a 38-year-old female. She has history of Crohn's disease. She has a colostomy. She is scheduled to see Dr. Lane this week. She denies fever or chills. She denies rhinorrhea, congestion postnasal drainage. She denies cough. She does endorse thirst, dry mouth and lightheadedness with standing. Patient states if she eats anything it goes straight through her . Patient denies headache, visual, ocular auditory symptoms. Patient denies dysuria, frequency, urgency or hematuria. Patient denies blood or mucus in the colostomy bag. The fecal material is brown in color to dark brown. Prior similar symptoms: Yes Recent Illness/Hospitalization: No PFSH <Dr. Damaris Almaraz, DO - Last Filed: 05/13/24 04:12> PFSH Medical History POTS (postural orthostatic tachycardia syndrome) Acute upper respiratory infection Vitamin D deficiency Underweight Palpitations Non-traumatic compression fracture of vertebra Cholelithiasis Ileostomy in place Anemia Thyroid cancer Home Medications ?Medication ?Instructions ?Recorded ?Last Taken ?Type cholecalciferol (vitamin D3) 10 10 mcg PO DAILY 01/26/22 Unknown History mcg (400 unit) capsule magnesium 200 mg tablet 200 mg PO DAILY 10/17/23 Unknown History promethazine 25 mg tablet 25 mg PO TID PRN nausea and 10/17/23 Unknown Rx vomiting #21 tabs levothyroxine 25 mcg tablet 25 mcg PO DAILY 30 days #30 tabs 01/11/24 Unknown Rx ondansetron 4 mg disintegrating 4 mg PO TID PRN nausea and 03/08/24 Unknown Rx tablet vomiting #21 tabs vitamin B complex 1 tab PO QDAY 04/07/24 Unknown History ivabradine 5 mg tablet 2.5 mg (1/2 x 5 mg) PO .COMPLEX 04/25/24 Unknown Rx #90 tabs fludrocortisone 0.1 mg tablet 0.05 mg (1/2 x 0.1 mg) PO BID #60 05/09/24 Unknown Rx tabs Allergy/AdvReac Type Severity Reaction Status Date / Time adhesive tape Allergy Intermediate Rash Verified 05/12/24 22:20 infliximab Allergy Intermediate Shortness Verified 05/12/24 22:20 of breath adalimumab (From Humira) Allergy NEEDS Verified 05/12/24 22:20 FOLLOW-UP vancomycin Allergy Anaphylaxis Verified 05/12/24 22:20 Family History Father Hypertension Grandmother Colon cancer Grandfather Cancer Grandfather Cancer Surgical History Hx of ileostomy History of cholecystectomy H/O thyroidectomy Social History adopted: No household members: spouse and children pets and animals: Yes (3 dogs) pets and animals: dog(s) Smoking Status: Never smoker alcohol intake: never diet: other what type of physical activity do you participate in: walking and running frequency: 5-6 times per week seatbelt use: always do you feel safe at home: Yes ROS <Dr. Damaris Almaraz, DO - Last Filed: 05/13/24 04:12> ROS ED Constitutional Constitutional ED: Reports weight loss and other Details: Patient reports 10 pound weight loss over 2 months which is significant for patient since she only weighs 77 pounds. ; Denies chills, fever(s), subjective or sweats Eyes Eyes: Denies blurry vision or change in vision ENT ENT ED: Reports sore throat; Denies ear pain or rhinorrhea Cardiovascular Cardiovascular: Denies chest pain, orthopnea, palpitations or paroxysmal nocturnal dyspnea Respiratory/Chest Respiratory/Chest: Denies cough, dyspnea, dyspnea on exertion, orthopnea or paroxysmal nocturnal dyspnea Gastrointestinal Gastrointestinal: Reports abdominal pain and diarrhea; Denies constipation, melena, nausea or vomiting Genitourinary Genitourinary ED: Denies dysuria, hematuria or urinary frequency Musculoskeletal Musculoskeletal: Denies arthralgias, back pain or neck pain Neurologic Neurologic: Reports weakness; Denies headache(s) Hematologic/Lymphatic Hematologic/Lymphatic: Reports systems reviewed and no addt'l complaints, except as documented EXAM <Dr. Damaris Almaraz, DO - Last Filed: 05/13/24 04:12> Physical Exam Const Vital Signs: 05/12/24 22:20 05/12/24 22:43 05/12/24 23:09 Temperature 97.5 F L Temperature Source Oral Pulse Rate 117 H 84 Pulse Rate [Lying] 100 Pulse Rate [Sitting (for 1 minute prior to obtaining)] 100 Pulse Rate [Standing (for 1 minute prior to obtaining)] 104 H Respiratory Rate 18 17 Blood Pressure 92/59 L 85/69 L Blood Pressure [Lying] 84/64 L Blood Pressure [Sitting (for 1 minute prior to obtaining)] 95/69 Blood Pressure [Standing (for 1 minute prior to obtaining)] 85/69 L Blood Pressure Mean 70 74 Blood Pressure Mean [Lying] 70 Blood Pressure Mean [Sitting (for 1 minute prior to obtaining)] 77 Blood Pressure Mean [Standing (for 1 minute prior to obtaining)] 74 Pulse Ox 99 100 Oxygen Delivery Method Room Air Room Air 05/12/24 23:30 05/12/24 23:54 05/13/24 01:00 Temperature Temperature Source Pulse Rate 80 82 92 Pulse Rate [Lying] Pulse Rate [Sitting (for 1 minute prior to obtaining)] Pulse Rate [Standing (for 1 minute prior to obtaining)] Respiratory Rate 16 16 16 Blood Pressure 87/59 L 78/49 L 90/62 Blood Pressure [Lying] Blood Pressure [Sitting (for 1 minute prior to obtaining)] Blood Pressure [Standing (for 1 minute prior to obtaining)] Blood Pressure Mean 68 58 71 Blood Pressure Mean [Lying] Blood Pressure Mean [Sitting (for 1 minute prior to obtaining)] Blood Pressure Mean [Standing (for 1 minute prior to obtaining)] Pulse Ox 98 98 98 Oxygen Delivery Method Room Air Room Air Room Air Blood pressure is low. Patient states her blood pressure is always low. Orthostatic vital signs are negative. Positive well developed and cachectic Constitutional Narrative: Patient does not look well. General Appearance ED: well developed, cachectic and pallor; Negative for cyanotic, diaphoretic or NAD Nutritional Appearance: cachectic HEENT Reports dry mucous membranes HEENT Narrative: Ears normal. TMs normal. Nares patent. Posterior pharynx reveals midline uvula no deviation with protrusion. There is slight erythema. Mouth ED: Yes dry mucous membranes Mouth: dry mucous membranes Eyes PERRL and EOMs intact bilaterally General Eye ED: Negative for pale conjunctiva or scleral icterus Neck no lymphadenopathy, supple and no JVD Resp normal respiratory effort and clear to auscultation bilaterally Cardio regular rhythm, S1 normal heart sound, S2 normal heart sound and no murmurs Rate: tachycardic GI normal to inspection, nondistended, normoactive bowel sounds, non-tender, non-distended and no masses; Negative for hepatosplenomegaly Back/Spine no CVA tenderness Extremity normal to inspection General Extremety ED: Negative for edema or tenderness General Extremity: Negative for edema Neuro oriented x3 and CN's II-XII intact bilaterally Sensorium / Orientation: alert Psych mental status grossly normal Skin no rashes or lesions noted, no wounds and No skin turgor normal General Skin Exam: pallor; Negative for jaundice <Dr. Rudi Chiu MD - Last Filed: 05/13/24 08:45> Physical Exam Const Vital Signs: 05/12/24 22:20 05/12/24 22:43 05/12/24 23:09 Temperature 97.5 F L Temperature Source Oral Pulse Rate 117 H 84 Pulse Rate [Lying] 100 Pulse Rate [Sitting (for 1 minute prior to obtaining)] 100 Pulse Rate [Standing (for 1 minute prior to obtaining)] 104 H Respiratory Rate 18 17 Blood Pressure 92/59 L 85/69 L Blood Pressure [Lying] 84/64 L Blood Pressure [Sitting (for 1 minute prior to obtaining)] 95/69 Blood Pressure [Standing (for 1 minute prior to obtaining)] 85/69 L Blood Pressure Mean 70 74 Blood Pressure Mean [Lying] 70 Blood Pressure Mean [Sitting (for 1 minute prior to obtaining)] 77 Blood Pressure Mean [Standing (for 1 minute prior to obtaining)] 74 Pulse Ox 99 100 Oxygen Delivery Method Room Air Room Air 05/12/24 23:30 05/12/24 23:54 05/13/24 01:00 Temperature Temperature Source Pulse Rate 80 82 92 Pulse Rate [Lying] Pulse Rate [Sitting (for 1 minute prior to obtaining)] Pulse Rate [Standing (for 1 minute prior to obtaining)] Respiratory Rate 16 16 16 Blood Pressure 87/59 L 78/49 L 90/62 Blood Pressure [Lying] Blood Pressure [Sitting (for 1 minute prior to obtaining)] Blood Pressure [Standing (for 1 minute prior to obtaining)] Blood Pressure Mean 68 58 71 Blood Pressure Mean [Lying] Blood Pressure Mean [Sitting (for 1 minute prior to obtaining)] Blood Pressure Mean [Standing (for 1 minute prior to obtaining)] Pulse Ox 98 98 98 Oxygen Delivery Method Room Air Room Air Room Air [facility] <Dr. Damaris Almaraz, DO - Last Filed: 05/13/24 04:12> [facility] Narrative Medical decision making narrative: Rapid strep screen was obtained. Orthostatic vital signs will obtain because of her low blood pressure. She is orthostatic negative. CBC was obtained to assess H&H as well as white count. BMP to assess renal function, CO2 anion gap and electrolytes and specifically evaluate for hypokalemia since she has had decreased output through her colostomy. Sung: Patient signed out to me pending labs. Patient is chronically ill-appearing but no acute distress. Is poorly complaining of sore throat more than anything else. Has had continued increased ileostomy output. Bicarb was low at 14.3 and VBG added on. VBG shows metabolic acidosis with pH of 7.198 and a bicarb of 14.7. Patient ordered additional liter of IV fluids. Will add on further labs and plan for admission for metabolic acidosis likely from starvation/dehydration. Some of this could be from loss associated with her ileostomy. Patient does have a leukocytosis of 19.7 per chart view shows this is a bit more chronic for her. Strep swab is negative but throat culture is ordered. Is given dose of Unasyn given her sore throat, immunocompromise state and leukocytosis. Abdomen is soft and she is not complaining of pain at this time so CT abdomen pelvis is not performed. Chest x-ray is also added on looking for further cause of her leukocytosis. Flu swab is added on. Case discussed with [place] physician, Dr. Wilkins. History & Record Review Additional record(s) reviewed:: Prior outpatient record (Records from outside facility indicates she is approved for MRI. Problems listed was celiac disease not Crohn's. Also outpatient internal medicine visit by Dr. Cheatham. Also internal medicine note by SHASTA Asher.), Prior ED visit (She has had several ER visits for acute bronchitis, dehydration and celiac disease.) and Prior labs Lab Data Attestation: I reviewed the patient's lab results. Lab results narrative: Patient has hyponatremia. CO2 is 14.3 with a normal anion gap. BUN and creatinine are at patient's baseline. Will obtain VBG to see if patient has a acidosis. Labs: Laboratory Results - last 24 hr 05/12/24 05/13/24 23:00 00:47 WBC 19.7 H RBC 4.86 Hgb 14.1 Hct 40.6 MCV 83.5 MCH 29.0 MCHC 34.7 RDW Std Deviation 40.0 RDW Coeff of Enrique 13.4 Plt Count 411 MPV 8.9 Immature Gran % (Auto) 1.800 H Neut % (Auto) 82.3 H Lymph % (Auto) 8.6 L [place] % (Auto) 5.6 Eos % (Auto) 1.0 Baso % (Auto) 0.7 Absolute Neuts (auto) 16.2 H Absolute Lymphs (auto) 1.70 Nucleated RBC % 0 Sodium 130 L Potassium 4.2 Chloride 100 Carbon Dioxide 14.3 L Anion Gap 15 BUN 20 H Creatinine 1.54 H Estim Creat Clear Calc 27.43 L Est GFR (MDRD) Non-Af 44 L BUN/Creatinine Ratio 12.8 Glucose 113 H Calcium 9.7 Total Bilirubin 0.35 Direct Bilirubin 0.17 AST 26 ALT 20 Alkaline Phosphatase 139 H Total Protein 7.1 Albumin [address]'s note reveals that patient has both Crohn's disease and celiac disease. Will obtain liver profile to assess total protein albumin since clinically she is malnourished. Because of the low CO2 a VBG was obtained. CBC was also obtained to assess white count and differential. Patient has an ileostomy not a colostomy after reading the GI notes. ABG Data ABG results: ABG 05/13/24 00:43 Specimen Type ANABELA Sample Site Not entered VBG pH 7.20 L VBG pO2 35 VBG HCO3 15 L VBG Total CO2 16 L VBG O2 Sat (Calc) 55 VBG Base Excess -13 L POC Mix VBG pCO2 Pt Tmp 37.8 L O2 Delivery Device Room Air Crit Call To/Read Back Yes Blood Gas Notified Whom Dr Chiu Blood Gas Notified Time 00:46:26 Radiography Diagnostic Testing: Clinical Impression(s) from Imaging Studies Chest X-Ray 05/13/24 01:19 IMPRESSION: No evidence of acute disease. Suggestion of osteopenia with note of multilevel endplate biconcave compression deformities midthoracic through upper lumbar visualized spine, can not exclude underlying metabolic disorder, clinically correlate. Reading Location: [facility] Treatment and Re-Evaluation :: Heart rate has improved after 1 L of normal saline <Dr. Rudi Chiu MD - Last Filed: 05/13/24 08:45> MDM MDM Narrative Medical decision making narrative: Rapid strep screen was obtained. Orthostatic vital signs will obtain because of her low blood pressure. She is orthostatic negative. CBC was obtained to assess H&H as well as white count. BMP to assess renal function, CO2 anion gap and electrolytes and specifically evaluate for hypokalemia since she has had decreased output through her colostomy. Patient care transferred to Dr. Almaraz to make dispostion pending addition laboratory results. Sung: Patient signed out to [place] pending labs. Patient is chronically ill-appearing but no acute distress. Is poorly complaining of sore throat more than anything else. Has had continued increased ileostomy output. Bicarb was low at 14.3 and VBG added on. VBG shows metabolic acidosis with pH of 7.198 and a bicarb of 14.7. Patient ordered additional liter of IV fluids. Will add on further labs and plan for admission for metabolic acidosis likely from starvation/dehydration. Some of this could be from loss associated with her ileostomy. Patient does have a leukocytosis of 19.7 per chart view shows this is a bit more chronic for her. Strep swab is negative but throat culture is ordered. Is given dose of Unasyn given her sore throat, immunocompromise state and leukocytosis. Abdomen is soft and she is not complaining of pain at this time so CT abdomen pelvis is not performed. Chest x-ray is also added on looking for further cause of her leukocytosis. Flu swab is added on. Case discussed with [place] physician, Dr. Wilkins. Lab Data Labs: Laboratory Results - last 24 hr 05/12/24 05/13/24 23:00 00:47 WBC 19.7 H RBC 4.86 Hgb 14.1 Hct 40.6 MCV 83.5 MCH 29.0 MCHC 34.7 RDW Std Deviation 40.0 RDW Coeff of Enrique 13.4 Plt Count 411 MPV 8.9 Immature Gran % (Auto) 1.800 H Neut % (Auto) 82.3 H Lymph % (Auto) 8.6 L [place] % (Auto) 5.6 Eos % (Auto) 1.0 Baso % (Auto) 0.7 Absolute Neuts (auto) 16.2 H Absolute Lymphs (auto) 1.70 Nucleated RBC % 0 Sodium 130 L Potassium 4.2 Chloride 100 Carbon Dioxide 14.3 L Anion Gap 15 BUN 20 H Creatinine 1.54 H Estim Creat Clear Calc 27.43 L Est GFR (MDRD) Non-Af 44 L BUN/Creatinine Ratio 12.8 Glucose 113 H Calcium 9.7 Total Bilirubin 0.35 Direct Bilirubin 0.17 AST 26 ALT 20 Alkaline Phosphatase 139 H Total Protein 7.1 Albumin 3.7 Globulin 3.4 ABG Data ABG results: ABG 05/13/24 00:43 Specimen Type ANABELA Sample Site Not entered VBG pH 7.20 L VBG pO2 35 VBG HCO3 15 L VBG Total CO2 16 L VBG O2 Sat (Calc) 55 VBG Base Excess -13 L POC Mix VBG pCO2 Pt Tmp 37.8 L O2 Delivery Device Room Air Crit Call To/Read Back Yes Blood Gas Notified Whom Dr Chiu Blood Gas Notified Time 00:46:26 Radiography Diagnostic Testing: Clinical Impression(s) from Imaging Studies Chest X-Ray 05/13/24 01:19 IMPRESSION: No evidence of acute disease. Suggestion of osteopenia with note of multilevel endplate biconcave compression deformities midthoracic through upper lumbar visualized spine, can not exclude underlying metabolic disorder, clinically correlate. Reading Location: [id number] Discharge Plan Dx/Rx/DC Orders Clinical Impression: Dehydration, Metabolic acidosis, Crohn's disease, Unintentional weight loss of 5% body weight or less within 1 month, Adult celiac disease, Chronic diarrhea Disposition Disposition: Acute Care [facility] Discharge Date/Time: 05/13/24 03:20
--- NOTE | 2024-05-13 01:37 | PCM.HP.STD ---
HPI - General General Date of Admission: 05/13/24 Date of Service: 05/13/24 Chief Complaint: Pharyngitis HPI Narrative PHILIPPE RG, is a 38 F who presents to the emergency room with chief complaint of sore throat. She has a significant past medical history of Crohn's disease status post colostomy, celiac disease and pots disease. Patient denies dysuria frequency and/or urgency or hematuria. She denies chest pain, shortness of breath and/or fevers or chills. She does state when she eats food it goes through her quite quickly but denies blood or mucus in her colostomy bag. Laboratory studies are remarkable for an elevated white blood cell count of 19.7, hemoglobin 14.1, hematocrit 40.6, platelets 411, sodium 130, potassium 4.2, chloride 100, bicarb 14.3, BUN 20, creatinine 1.54, venous blood gas pH of 7.2, LFTs within normal limits and an albumin of 3.7. Patient receiving a dose of Decadron and Unasyn in the emergency room and blood cultures obtained to find source of infection. Initial rapid strep was negative however, throat culture was requested. [facility] Medical History POTS (postural orthostatic tachycardia syndrome) Acute upper respiratory infection Vitamin D deficiency Underweight Palpitations Non-traumatic compression fracture of vertebra Cholelithiasis Ileostomy in place Anemia Thyroid cancer Home Medications ?Medication ?Instructions ?Recorded ?Last Taken ?Type cholecalciferol (vitamin D3) 10 10 mcg PO DAILY 01/26/22 Unknown History mcg (400 unit) capsule magnesium 200 mg tablet 200 mg PO DAILY 10/17/23 Unknown History promethazine 25 mg tablet 25 mg PO TID PRN nausea and 10/17/23 Unknown Rx vomiting #21 tabs ondansetron 8 mg disintegrating 8 mg PO Q8H PRN PRN Nausea #90 tabs 11/06/23 Unknown Rx tablet levothyroxine 25 mcg tablet 25 mcg PO DAILY 30 days #30 tabs 01/11/24 Unknown Rx ondansetron 4 mg disintegrating 4 mg PO TID PRN nausea and 03/08/24 Unknown Rx tablet vomiting #21 tabs vitamin B complex 1 tab PO QDAY 04/07/24 Unknown History ivabradine 5 mg tablet 2.5 mg (1/2 x 5 mg) PO .COMPLEX 04/25/24 Unknown Rx #90 tabs fludrocortisone 0.1 mg tablet 0.05 mg (1/2 x 0.1 mg) PO BID #60 05/09/24 Unknown Rx tabs Allergy/AdvReac Type Severity Reaction Status Date / Time adhesive tape Allergy Intermediate Rash Verified 05/12/24 22:20 infliximab Allergy Intermediate Shortness Verified 05/12/24 22:20 of breath adalimumab (From Humira) Allergy NEEDS Verified 05/12/24 22:20 FOLLOW-UP vancomycin Allergy Anaphylaxis Verified 05/12/24 22:20 Family History Father Hypertension Grandmother Colon cancer Grandfather Cancer Grandfather Cancer Surgical History Hx of ileostomy History of cholecystectomy H/O thyroidectomy Social History adopted: No household members: spouse and children pets and animals: Yes (3 dogs) pets and animals: dog(s) Smoking Status: Never smoker alcohol intake: never diet: other what type of physical activity do you participate in: walking and running frequency: 5-6 times per week seatbelt use: always do you feel safe at home: Yes ROS Constitutional Constitutional: Reports weight loss; Denies chills or fever(s) Eyes Eyes: Denies blurry vision ENT HEENT: Reports sore throat; Denies abnormal hearing Cardiovascular Cardiovascular: Denies chest pain Respiratory/Chest Respiratory/Chest: Denies cough Gastrointestinal Gastrointestinal: Denies nausea or vomiting Genitourinary Genitourinary: Denies dysuria, hematuria or urinary frequency Musculoskeletal Musculoskeletal: Denies back pain Integumentary Integumentary: Denies dry skin Neurologic Neurologic: Denies confusion Psychiatric Psychiatric: Denies anxiety Vital Signs Vital Signs Vital Signs: 05/12/24 22:20 05/12/24 22:43 05/12/24 23:09 Temperature 97.5 F L Temperature Source Oral Pulse Rate 117 H 84 Pulse Rate [Lying] 100 Pulse Rate [Sitting (for 1 minute prior to obtaining)] 100 Pulse Rate [Standing (for 1 minute prior to obtaining)] 104 H Respiratory Rate 18 17 Blood Pressure 92/59 L 85/69 L Blood Pressure [Lying] 84/64 L Blood Pressure [Sitting (for 1 minute prior to obtaining)] 95/69 Blood Pressure [Standing (for 1 minute prior to obtaining)] 85/69 L Blood Pressure Mean 70 74 Blood Pressure Mean [Lying] 70 Blood Pressure Mean [Sitting (for 1 minute prior to obtaining)] 77 Blood Pressure Mean [Standing (for 1 minute prior to obtaining)] 74 Pulse Ox 99 100 Oxygen Delivery Method Room Air Room Air 05/12/24 23:30 05/12/24 23:54 05/13/24 01:00 Temperature Temperature Source Pulse Rate 80 82 92 Pulse Rate [Lying] Pulse Rate [Sitting (for 1 minute prior to obtaining)] Pulse Rate [Standing (for 1 minute prior to obtaining)] Respiratory Rate 16 16 16 Blood Pressure 87/59 L 78/49 L 90/62 Blood Pressure [Lying] Blood Pressure [Sitting (for 1 minute prior to obtaining)] Blood Pressure [Standing (for 1 minute prior to obtaining)] Blood Pressure Mean 68 58 71 Blood Pressure Mean [Lying] Blood Pressure Mean [Sitting (for 1 minute prior to obtaining)] Blood Pressure Mean [Standing (for 1 minute prior to obtaining)] Pulse Ox 98 98 98 Oxygen Delivery Method Room Air Room Air Room Air Weight Weight: 76 lb 9.6 oz Body Mass Index (BMI) 16.5 Physical Exam Const oriented x3 General Appearance: cooperative HEENT normocephalic and head/scalp atraumatic HEENT Narrative: Oropharynx erythematous no white patches present Neck no lymphadenopathy Lymph Lymphatic: no lymphadenopathy noted Resp normal respiratory effort, normal air movement and clear to auscultation bilaterally Cardio regular rate, regular rhythm, S1 normal heart sound and S2 normal heart sound GI normal to inspection, nondistended, normoactive bowel sounds GI Narrative: Colostomy in place Extremity normal capillary refill Skin General Skin Exam: no breakdown Neuro no focal motor deficits and no sensory deficits noted Psych thought process normal, cooperative and affect normal Results Lab / Micro Data 05/13/24 00:47 05/12/24 23:00 Labs: Laboratory Results - last 24 hr 05/12/24 23:00: Sodium 130 L, Potassium 4.2, Chloride 100, Carbon Dioxide 14.3 L, Anion Gap 15, BUN 20 H, Creatinine 1.54 H, Estim Creat Clear Calc 27.43 L, Est GFR (MDRD) Non-Af 44 L, BUN/Creatinine Ratio 12.8, Glucose 113 H, Calcium 9.7 05/13/24 00:47: WBC 19.7 H, RBC 4.86, Hgb 14.1, Hct 40.6, MCV 83.5, MCH 29.0, MCHC 34.7, RDW Std Deviation 40.0, RDW Coeff of Enrique 13.4, Plt Count 411, MPV 8.9, Immature Gran % (Auto) 1.800 H, Neut % (Auto) 82.3 H, Lymph % (Auto) 8.6 L, [place] % (Auto) 5.6, Eos % (Auto) 1.0, Baso % (Auto) 0.7, Absolute Neuts (auto) 16.2 H, Absolute Lymphs (auto) 1.70, Nucleated RBC % 0, Total Bilirubin 0.35, Direct Bilirubin 0.17, AST 26, ALT 20, Alkaline Phosphatase 139 H, Total Protein 7.1, Albumin 3.7, Globulin 3.4 Micro: Microbiology 05/12/24 23:00 Mucosa - Throat Streptococcus pyogenes (PCR) - Final ABG Data ABG results: ABG 05/13/24 00:43 Specimen Type ANABELA Sample Site Not entered VBG pH 7.20 L VBG pO2 35 VBG HCO3 15 L VBG Total CO2 16 L VBG O2 Sat (Calc) 55 VBG Base Excess -13 L POC Mix VBG pCO2 Pt Tmp 37.8 L O2 Delivery Device Room Air Crit Call To/Read Back Yes Blood Gas Notified Whom Dr Chiu Blood Gas Notified Time 00:46:26 Assessment & Plan Assessment/Plan (1) CKD (chronic kidney disease): (2) Celiac disease: (3) Crohn's disease: QUALIFIERS: Gastrointestinal tract location: small and large intestine Digestive disease complication type: other complication Qualified Code(s): K50.818 - Crohn's disease of both small and large intestine with other complication (4) Hyponatremia: (5) POTS (postural orthostatic tachycardia syndrome): (6) Pharyngitis: (7) Metabolic acidosis: PLAN: Plan 1 pharyngitis?admit patient to general medical floor continue Unasyn initiated in the emergency room for leukocytosis. Despite rapid strep test being negative throat culture obtained and is pending. There is no other source of infection identified at this time. Chest x-ray will be obtained as well 2. Metabolic acidosis, hyponatremia?will give IV fluids normal saline at a rate of 100 cc/h and repeat BMP in the a.m. 3. Crohn's disease?routine maintenance with colostomy bag 4. POTS disease?continue to monitor blood pressure and IV hydration to assist 5. DVT prophylaxis?SCDs due to renal disease Charges/Coding Visit Charges Inpatient E&M: 38367 Init Hosp L2
[2024-05-13] MEDS: 0.9% Normal Saline (1000mL) 1,000 ML 999 ML IV (02:00)
[2024-05-13] MEDS: fentaNYL 100 MCG/2 ML Ampul 50 MCG IV (02:14)
[2024-05-13] MEDS: dexAMETHasone 10 MG/ML Vial PO.IVFORM (02:15)
[2024-05-13] MEDS: Ampicillin/Sulbactam 1,500 MG in 0.9% Normal Saline (50mL MB+) 50 ML 100 MG IV (02:22)
[2024-05-13] MEDS: 0.9% Normal Saline (1000mL) 1,000 ML 100 ML IV (04:02)
[2024-05-13] MEDS: Levothyroxine 25 MCG TABLET PO (04:11)
[2024-05-13 07:12] LABS: Absolute Lymphocyte Count 0.79 X10^3/uL (0.83-4.51); Absolute Neutrophil Count 15.5 X10^3/uL (2.0-7.7); Basophil# 0.08 X10^3/uL; Basophil% 0.5 % (0-1); Eosinophil# 0.02 X10^3/uL; Eosinophils% 0.1 % (0-5); Hematocrit 39.6 % (37-47); Hemoglobin 13.4 g/dL (12.0-15.0); Lymphocyte # 0.79 X10^3/ul (0.83-4.51); Lymphocyte % 4.7 % (19-41); Mean Corp Hgb Conc 33.8 g/dL (32-36); Mean Corpuscular Hgb 28.6 pg (27.0-32.0); Mean Corpuscular Volume 84.4 fL (81-99); Mean Platelet Vol. 9.5 fl (6.2-12.0); Monocyte# 0.13 X10^3/uL; Monocyte% 0.8 % (0-10); NRBC Flagged by Analyzer 0 % (0-5); Platelet Count 361 K/mm3 (150-450); RBC Distribution Width CV 13.4 % (11.6-14.6); RBC Distribution Width SD 41.1 fl (35.1-43.9); Red Blood Count 4.69 M/mm3 (4.2-5.4); White Blood Count 16.8 K/mm3 (4.4-11.0)
[2024-05-13] MEDS: Fludrocortisone Acetate 0.1 MG Tablet 0.05 MG PO (08:45)
[2024-05-13] MEDS: Vitamin B Comp W-C Capsule 1 CAP PO (08:45)
[2024-05-13] MEDS: IVABRADINE HCL 5 MG TABLET PO (08:46)
[2024-05-13] MEDS: Magnesium Chloride 64 MG Delay Rel.Tablet PO (08:47)
[2024-05-13] MEDS: Ampicillin/Sulbactam 3 GM in 0.9% Normal Saline (100mL MB+) 100 ML IV ×2 (08:58→21:58)
[2024-05-13 09:39] LABS: Anion Gap 12 (5-15); BUN 15 mg/dL (4-19); BUN/Creat Ratio 13.7 RATIO (10-20); Calcium,Total 7.9 mg/dL (7.6-11.0); Carbon Dioxide 11.3 mmol/L (21.0-32.0); Chloride 112 mmol/L (98-108); Creatinine, Serum 1.12 mg/dL (0.70-1.20); EST Glomerular Filtration Rate 65 (>60); Estimated Creatinine Clearance 38.98 ml/min (50-250); Glucose 105 mg/dL (70-99); Potassium 3.9 mmol/L (3.3-5.1); Sodium Level 135 mmol/L (133-145)
--- NOTE | 2024-05-13 12:00 | CASEMGMT ---
Pt received a door dash order. Verified with pt nurse, she is on a regular diet, delivered to the room. Pt states she is indep at home. She denies any homegoing needs at this time.
[2024-05-13] MEDS: BENZOCAINE/MENTHOL 1 LOZENGE MUCOUS MEM (14:21)
[2024-05-13] MEDS: 0.9% Saline Lock 10 ML Syringe IV ×2 (14:51→22:01)
[2024-05-13] MEDS: dexAMETHasone 4 MG/ML Vial IV ×2 (14:51→22:01)
--- NOTE | 2024-05-13 15:10 | PN.HOSP_ITS ---
Reason for Visit Reason for Visit: Diagnoses Hypo-osmolality and hyponatremia (05/13/24) Acidosis, unspecified (05/13/24) Postural orthostatic tachycardia syndrome [POTS] (05/13/24) Acute pharyngitis, unspecified (05/13/24) Crohn's disease of both small and large intestine with other complication (05/13/24) Celiac disease (05/13/24) Chronic kidney disease, unspecified (05/13/24) Objective Data Objective Data Vital Signs: Vital Signs Temp Pulse Resp BP Pulse Ox O2 Del Method 98.2 F 69 16 86/56 L 100 Room Air 05/13/24 14:34 05/13/24 14:34 05/13/24 14:34 05/13/24 14:34 05/13/24 14:34 05/13/24 14:34 Oxygen Delivery Method Room Air Weight: 79 lb 2.335 oz Body Mass Index (BMI) 17.1 Intake & Output: Intake and Output for Last 24 Hours 05/11/24 05/12/24 05/13/24 23:59 23:59 23:59 Intake Total 500 / 500 1166 / 1166 Balance 500 / 500 1166 / 1166 Lab / Micro Data 05/13/24 06:06 05/13/24 06:06 Labs: Laboratory Results - last 24 hr 05/12/24 23:00: Sodium 130 L, Potassium 4.2, Chloride 100, Carbon Dioxide 14.3 L , Anion Gap 15, BUN 20 H, Creatinine 1.54 H, Estim Creat Clear Calc 27.43 L, Est GFR (MDRD) Non-Af 44 L, BUN/Creatinine Ratio 12.8, Glucose 113 H, Calcium 9.7 05/13/24 00:47: WBC 19.7 H, RBC 4.86, Hgb 14.1, Hct 40.6, MCV 83.5, MCH 29.0, MCHC 34.7, RDW Std Deviation 40.0, RDW Coeff of Enrique 13.4, Plt Count 411, MPV 8.9, Immature Gran % (Auto) 1.800 H, Neut % (Auto) 82.3 H, Lymph % (Auto) 8.6 L, [place] % (Auto) 5.6, Eos % (Auto) 1.0, Baso % (Auto) 0.7, Absolute Neuts (auto) 16.2 H, Absolute Lymphs (auto) 1.70, Nucleated RBC % 0, Total Bilirubin 0.35, Direct Bilirubin 0.17, AST 26, ALT 20, Alkaline Phosphatase 139 H, Total Protein 7.1, Albumin 3.7, Globulin 3.4 05/13/24 06:06: WBC 16.8 H, RBC 4.69, Hgb 13.4, Hct 39.6, MCV 84.4, MCH 28.6, MCHC 33.8, RDW Std Deviation 41.1, RDW Coeff of Enrique 13.4, Plt Count 361, MPV 9.5, Immature Gran % (Auto) 1.900 H, Neut % (Auto) 92.0 H, Lymph % (Auto) 4.7 L, [place] % (Auto) 0.8, Eos % (Auto) 0.1, Baso % (Auto) 0.5, Absolute Neuts (auto) 15.5 H, Absolute Lymphs (auto) 0.79 L, Nucleated RBC % 0, Sodium 135, Potassium 3.9, Chloride 112 H, Carbon Dioxide 11.3 L, Anion Gap 12, BUN 15, Creatinine 1.12, Estim Creat Clear Calc 38.98 L, Est GFR (MDRD) Non-Af 65, BUN/Creatinine Ratio 13.7, Glucose 105 H, Calcium 7.9, TSH 1.150 Micro: Microbiology 05/13/24 02:27 Mucosa - Nose SARS-CoV-2, Influenza & RSV (PCR) - Final 05/12/24 23:00 Mucosa - Throat Streptococcus pyogenes (PCR) - Final ABG Data ABG results: ABG 05/13/24 00:43 Specimen Type ANABELA Sample Site Not entered VBG pH 7.20 L VBG pO2 35 VBG HCO3 15 L VBG Total CO2 16 L VBG O2 Sat (Calc) 55 VBG Base Excess -13 L POC Mix VBG pCO2 Pt Tmp 37.8 L O2 Delivery Device Room Air Crit Call To/Read Back Yes Blood Gas Notified Whom Dr Chiu Blood Gas Notified Time 00:46:26 Radiography Diagnostic Testing: Radiology Impression Chest X-Ray 05/13/24 01:19 IMPRESSION: No evidence of acute disease. Suggestion of osteopenia with note of multilevel endplate biconcave compression deformities midthoracic through upper lumbar visualized spine, can not exclude underlying metabolic disorder, clinically correlate. Reading Location: [facility] Physical Exam Narrative Seen and examined. Patient chronically has low BP usually in 80s. She is on fludrocortisone states 0.1 mg twice daily. Was admitted with rapid emptying of her colostomy. She states she eats and it goes through straight and colostomy. No significant abdominal pain. She has Crohn's disease and celiac disease. Today, her frequency of colostomy emptying has decreased. Complain of sore throat. Physical exam General: Alert, Oriented x3, Cooperative, short stature, BMI 17.1 kg/m? HEENT: Atraumatic, PERRLA, EOMI, Normocephalic Oral: Oral mucosa dry. No Gingival or Mucosal Lesions/ Ulcerations Neck: Supple, No JVD, Negative Carotid Bruits Chest wall/Lungs: Air entry diminished in bilateral lung bases. No crepitation/rhonchi Cardiovascular: Regular rate, Regular Rhythm, Normal S1, Normal S2, No M/G/R Abdomen: Bowel Sounds Present, Soft, Non Tender, Non-Distended. Left lower colostomy. : No dysuria. No renal angle tenderness. No suprapubic tenderness. Extremities: No edema, Capillary Refill Less than 3 Seconds Skin: No rashes, No breakdown Musculoskeletal: No Tenderness to Palpation of Joints or Extremities Spine: Multiple thoracic vertebral deformity. Kyphotic spine Neurological: Cranial nerves II-XII grossly intact, DTR 2+/4. No acute focal neurological deficit. Psych/Mental Status: Flat affect Assessment & Plan Assessment/Plan (1) CKD (chronic kidney disease): (2) Celiac disease: (3) Crohn's disease: QUALIFIERS: Gastrointestinal tract location: small and large intestine Digestive disease complication type: other complication Qualified Code(s): K50.818 - Crohn's disease of both small and large intestine with other complication (4) Hyponatremia: (5) POTS (postural orthostatic tachycardia syndrome): (6) Pharyngitis: (7) Metabolic acidosis: PLAN: Plan 38-year-old female is being admitted for sore throat for 2 days with concern of rapid emptying of colostomy with weight loss due to Crohn's disease. Had lost approximately 10 pounds in past 2 months. 1. Crohn's disease exacerbation with celiac disease with diarrhea: Patient has weight loss with chronic moderate malnutrition. BMI 17.1 kg/m?. Patient on steroid. She is not able to get biologic because of insurance problem and follows Dr. Lane. Physician Office Nurse consult. Frequency of colostomy emptying improving. 2. Pharyngitis: On Unasyn. Cepacol ordered. Triple PCR for SARS-CoV-2, flu and RSV are negative. Rapid strep PCR negative. She also stated that fentanyl given in ED helped her therefore 1 dose ordered. 3. Hyponatremia with hypovolemia, nonanion gap metabolic acidosis: Her bicarb was about 15, sodium 130. Potassium normal. Anion gap normal. VBG shows 7.20/mixed pCO2 38, total bicarb 16. On IV fluid Ringer lactate. Bicarb oral ordered. Serum cortisol level normal. TSH and free T4 tomorrow ordered 4. POTS disease?patient on fludrocortisone. Midodrine added. Her usual blood pressure in 80s. 5. ELPIDIO: Her admission BUN/creatinine was 20/1.54 which improved to 15/1.12. ELPIDIO resolved. DVT prophylaxis, high risk due to chron's disease/inflammatory bowel disease: Lovenox 40 m subcu daily. Microbiology Past 72 Hours 05/13/24 02:27 Mucosa - Nose SARS-CoV-2, Influenza & RSV (PCR) - Final 05/12/24 23:00 Mucosa - Throat Streptococcus pyogenes (PCR) - Final Laboratory Results 05/12/24 23:00: Sodium 130 L, Potassium 4.2, Chloride 100, Carbon Dioxide 14.3 L , Anion Gap 15, BUN 20 H, Creatinine 1.54 H, Estim Creat Clear Calc 27.43 L, Est GFR (MDRD) Non-Af 44 L, BUN/Creatinine Ratio 12.8, Glucose 113 H, Calcium 9.7 05/13/24 00:43: Specimen Type ANABELA, Sample Site Not entered, VBG pH 7.20 L, VBG pO2 35, VBG HCO3 15 L, VBG Total CO2 16 L, VBG O2 Sat (Calc) 55, VBG Base Excess -13 L, POC Mix VBG pCO2 Pt Tmp 37.8 L, O2 Delivery Device Room Air, Crit Call To/Read Back Yes, Blood Gas Notified Whom Dr Chiu, Blood Gas Notified Time 00:46:26 05/13/24 00:47: WBC 19.7 H, RBC 4.86, Hgb 14.1, Hct 40.6, MCV 83.5, MCH 29.0, MCHC 34.7, RDW Std Deviation 40.0, RDW Coeff of Enrique 13.4, Plt Count 411, MPV 8.9, Immature Gran % (Auto) 1.800 H, Neut % (Auto) 82.3 H, Lymph % (Auto) 8.6 L, [place] % (Auto) 5.6, Eos % (Auto) 1.0, Baso % (Auto) 0.7, Absolute Neuts (auto) 16.2 H, Absolute Lymphs (auto) 1.70, Nucleated RBC % 0, Total Bilirubin 0.35, Direct Bilirubin 0.17, AST 26, ALT 20, Alkaline Phosphatase 139 H, Total Protein 7.1, Albumin 3.7, Globulin 3.4 05/13/24 06:06: WBC 16.8 H, RBC 4.69, Hgb 13.4, Hct 39.6, MCV 84.4, MCH 28.6, MCHC 33.8, RDW Std Deviation 41.1, RDW Coeff of Enrique 13.4, Plt Count 361, MPV 9.5, Immature Gran % (Auto) 1.900 H, Neut % (Auto) 92.0 H, Lymph % (Auto) 4.7 L, [place] % (Auto) 0.8, Eos % (Auto) 0.1, Baso % (Auto) 0.5, Absolute Neuts (auto) 15.5 H, Absolute Lymphs (auto) 0.79 L, Nucleated RBC % 0, Sodium 135, Potassium 3.9, Chloride 112 H, Carbon Dioxide 11.3 L, Anion Gap 12, BUN 15, Creatinine 1.12, Estim Creat Clear Calc 38.98 L, Est GFR (MDRD) Non-Af 65, BUN/Creatinine Ratio 13.7, Glucose 105 H, Calcium 7.9, TSH 1.150 Charges/Coding Visit Charges Inpatient E&M: 11755 Subs Hosp L2
[2024-05-13] MEDS: Lactated Ringers 1,000 ML 999 ML IV (15:30)
[2024-05-13] MEDS: Lactated Ringers 1,000 ML 100 ML IV (16:56)
[2024-05-13] MEDS: IVABRADINE HCL 5 MG TABLET 2.5 MG PO (16:59)
[2024-05-13] MEDS: Fludrocortisone Acetate 0.1 MG Tablet PO (17:00)
[2024-05-13] MEDS: Midodrine HCl 5 MG Tablet 10 MG PO (17:00)
[2024-05-13] MEDS: Enoxaparin 40 MG/0.4 ML Syringe SC (17:58)
[2024-05-13] MEDS: Sodium Bicarbonate 650 MG Tablet PO ×2 (17:58→22:01)
[2024-05-13] MEDS: Acetaminophen 325 MG Tablet 650 MG PO (18:00)
[2024-05-13 22:54] LABS: Magnesium 1.9 mg/dL (1.5-2.2)
--- NOTE | 2024-05-14 01:15 | NURSING ---
this nurse took over care for patient at 0119
[2024-05-14 03:46] VITALS: BP 91/52; PULSE 60; RESP 16; TEMP 36.6; O2SAT 97
[2024-05-14 05:54] LABS: Absolute Lymphocyte Count 1.14 X10^3/uL (0.83-4.51); Absolute Neutrophil Count 16.8 X10^3/uL (2.0-7.7); Basophil# 0.04 X10^3/uL; Basophil% 0.2 % (0-1); Hematocrit 33.7 % (37-47); Hemoglobin 11.5 g/dL (12.0-15.0); Lymphocyte # 1.14 X10^3/ul (0.83-4.51); Lymphocyte % 6.1 % (19-41); Mean Corp Hgb Conc 34.1 g/dL (32-36); Mean Corpuscular Hgb 28.8 pg (27.0-32.0); Mean Corpuscular Volume 84.3 fL (81-99); Mean Platelet Vol. 9.6 fl (6.2-12.0); Monocyte% 2.7 % (0-10); NRBC Flagged by Analyzer 0 % (0-5); Neutrophil # 16.75 X10^3/uL (2.7-7.7); Neutrophil % 89.2 % (47-70); Platelet Count 365 K/mm3 (150-450); RBC Distribution Width CV 13.6 % (11.6-14.6); RBC Distribution Width SD 41.2 fl (35.1-43.9); White Blood Count 18.8 K/mm3 (4.4-11.0)
[2024-05-14] MEDS: Sodium Bicarbonate 650 MG Tablet PO ×2 (06:18→14:58)
[2024-05-14] MEDS: dexAMETHasone 4 MG/ML Vial IV ×2 (06:19→15:22)
[2024-05-14] MEDS: 0.9% Saline Lock 10 ML Syringe IV ×2 (06:19→15:22)
[2024-05-14] MEDS: Levothyroxine 25 MCG TABLET PO (06:19)
[2024-05-14] MEDS: BENZOCAINE/MENTHOL 1 LOZENGE MUCOUS MEM (06:21)
[2024-05-14] MEDS: Acetaminophen 325 MG Tablet 650 MG PO (06:21)
[2024-05-14 06:22] LABS: Anion Gap 13 (5-15); BUN 11 mg/dL (4-19); BUN/Creat Ratio 9.8 RATIO (10-20); Calcium,Total 8.2 mg/dL (7.6-11.0); Carbon Dioxide 16.8 mmol/L (21.0-32.0); Chloride 109 mmol/L (98-108); Creatinine, Serum 1.08 mg/dL (0.70-1.20); EST Glomerular Filtration Rate 68 (>60); Estimated Creatinine Clearance 40.42 ml/min (50-250); Glucose 124 mg/dL (70-99); Potassium 3.3 mmol/L (3.3-5.1); Sodium Level 138 mmol/L (133-145)
[2024-05-14 08:00] VITALS: BP 90/55; PULSE 55; RESP 17; TEMP 36.6; O2SAT 96
[2024-05-14] MEDS: Vitamin B Comp W-C Capsule 1 CAP PO (08:17)
[2024-05-14] MEDS: Magnesium Chloride 64 MG Delay Rel.Tablet PO (08:17)
[2024-05-14] MEDS: Fludrocortisone Acetate 0.1 MG Tablet PO (08:17)
[2024-05-14] MEDS: IVABRADINE HCL 5 MG TABLET PO (08:17)
[2024-05-14] MEDS: Midodrine HCl 5 MG Tablet 10 MG PO (08:17)
[2024-05-14] MEDS: Enoxaparin 40 MG/0.4 ML Syringe SC (09:14)
[2024-05-14] MEDS: Ampicillin/Sulbactam 3 GM in 0.9% Normal Saline (100mL MB+) 100 ML IV (09:20)
--- NOTE | 2024-05-14 11:36 | DCINST_ITS ---
Discharge Instructions Diet Discharge Diet: Light diet - advance as tolerated DC O2, CPAP, BIPAP needs Home O2 Discharge instructions: No Dressing / Incision Discharge Activity: Return to Normal Activity Weight Bearing Status: Weight bearing as tolerated Dressing / Incision Call your doctor if you observe: Fever of 101 or Higher, Coldness, Increased Aleah n, Numbness or Tingling, Change in Color, Inability to urinate, Inability to have a bowel movement, Shortness of breath, Dizziness, Fainting spells, Swelling in the ankles, Chest pain, Prolonged hiccupping, Increased palpitations (irregular heartbeat) and Calf discomfort Follow Up Care When: IN 2 WEEKS Test Results: Test results from this visit will be discussed in further detail at your follow- up appointment, if applicable. Discharge Plan Admission Admit Date/Time: 05/13/24 16:55 Primary Reason for Your Visit: Crohn's disease exacerbation with celiac disease, hyponatremia,POTS Attending Provider: Yousuf Pleitez Primary Care Provider: Antonio Roman Consulting Providers: Josiah Wilkins Discharge Orders/Prescriptions Prescriptions: New Sore Throat (benzocaine-menth) 15-3.6 mg Lozenge 1 meño mucous membrane Q2H PRN PRN (Reason: SORE THROAT) Qty: 0 0RF Rx Instructions: [id number] sodium bicarbonate 650 mg Tablet 650 mg PO TID 7 Days Qty: 21 0RF amoxicillin-pot clavulanate 875-125 mg tablet 1 tab PO BID 5 Days Qty: 10 0RF Continued cholecalciferol (vitamin D3) 10 mcg (400 unit) capsule 10 mcg PO DAILY vitamin B complex Tablet 1 tab PO QDAY levothyroxine 25 mcg tablet 25 mcg PO DAILY 30 Days Qty: 30 0RF Patient Comments: Take 1 tablet by mouth DAILY (6 AM). ondansetron 4 mg tablet,disintegrating 4 mg PO TID PRN (Reason: nausea and vomiting) Qty: 21 0RF magnesium 200 mg tablet 200 mg PO DAILY promethazine 25 mg tablet 25 mg PO TID PRN (Reason: nausea and vomiting) Qty: 21 0RF ivabradine 5 mg tablet 2.5 mg PO .COMPLEX Qty: 90 3RF Rx Instructions: 2.5 mg orally; must administer with a meal/food, 5mg in AM and 2.5mg in PM Changed fludrocortisone 0.1 mg tablet 0.1 mg PO BID 30 Days Qty: 60 0RF Referrals / Follow Up: Ashley Caruso NP-C [Med Staff - [facility]] - Within 2 Weeks Antonio Roman PA [Primary Care Provider] - Disposition Disposition (needs filled in before D/C Order can be placed): Home, Self Care
[2024-05-14 12:11] VITALS: BP 82/47; PULSE 49; RESP 16; TEMP 36.5; O2SAT 98
--- NOTE | 2024-05-14 12:29 | CASEMGMT ---
Noted pt changed to inpatient status. 6 clicks =24, pt with colostomy and indep in the care of it. Pt denied homegoing needs yesterday. Plan for pt to dc home today.
[2024-05-14] MEDS: Potassium Chloride Oral Tablet 20 MEQ 40 MEQ PO (12:47)
--- NOTE | 2024-05-14 15:43 | PCM.DC.SUM ---
Providers Date of Admission: 05/13/24 Date of Discharge: 05/14/24 Primary Care Physician: SHASTA Fuentes Reason For Visit: PHARYNGITIS. HYPONATREMIA Diagnosis Discharge Diagnosis (1) CKD (chronic kidney disease): Status: Chronic Code(s): N18.9 - Chronic kidney disease, unspecified (2) Celiac disease: Status: Acute Code(s): K90.0 - Celiac disease (3) Crohn's disease: Status: Chronic Code(s): K50.90 - Crohn's disease, unspecified, without complications Qualifiers: Gastrointestinal tract location: small and large intestine Digestive disease complication type: other complication Qualified Code(s): K50.818 - Crohn's disease of both small and large intestine with other complication (4) Hyponatremia: Status: Acute Code(s): E87.1 - Hypo-osmolality and hyponatremia (5) POTS (postural orthostatic tachycardia syndrome): Status: Chronic Code(s): G90.A - Postural orthostatic tachycardia syndrome [POTS] (6) Pharyngitis: Status: Acute Code(s): J02.9 - Acute pharyngitis, unspecified (7) Metabolic acidosis: Status: Acute Code(s): E87.20 - Acidosis, unspecified Plan 38-year-old female is being admitted for sore throat for 2 days with concern of rapid emptying of colostomy with weight loss due to Crohn's disease. Had lost approximately 10 pounds in past 2 months. 1. Crohn's disease exacerbation with celiac disease with diarrhea: Patient has weight loss with chronic moderate malnutrition. BMI 17.1 kg/m?. Patient on steroid. She is not able to get biologic because of insurance problem and follows Dr. Lane. [employer] consult. Frequency of colostomy emptying improving. 05/14: Follow-up in GI clinic with Ashley. 2. Pharyngitis: On Unasyn. Cepacol ordered. Triple PCR for SARS-CoV-2, flu and RSV are negative. Rapid strep PCR negative. She also stated that fentanyl given in ED helped her therefore 1 dose ordered. 3: Patient with 2 days of IV Unasyn. Prescription given for Augmentin for 5 more days. 3. Hyponatremia with hypovolemia, nonanion gap metabolic acidosis: Her bicarb was about 15, sodium 130. Potassium normal. Anion gap normal. VBG shows 7.20/mixed pCO2 38, total bicarb 16. On IV fluid Ringer lactate. Bicarb oral ordered. Serum cortisol level normal. TSH and free T4 tomorrow ordered 05/14: Patient serum cortisol level normal. TSH free T4 normal. Patient is non-anion gap metabolic acidosis. Potassium 3.3, low level normal. Potassium was replaced. Bicarb 16.8. Prescription given for sodium bicarbonate for 1 week. Rest as mentioned above 4. POTS disease?patient on fludrocortisone. Midodrine added. Her usual blood pressure in 80s. Midodrine was used as trial for low blood pressure but patient felt numbness/paresthesia in the head region therefore discontinued. 5. ELPIDIO: Her admission BUN/creatinine was 20/1.54 which improved to 15/1.12. ELPIDIO resolved. DVT prophylaxis, high risk due to chron's disease/inflammatory bowel disease: Lovenox 40 m subcu daily. Discharge medication reconciliation done. Discharge follow-up instructions completed. Discharge process discussed with the patient and all questions were answered to patient's satisfaction. Follow with PCP in 1 to 2 weeks Total time spent, exact 35 minutes on discharge meds reconciliation, examination, coordination of care with nurses and ancillary staff, review of imaging and blood test and discussion with the patient on follow-up instructions. Medications at Discharge Home Medications cholecalciferol (vitamin D3) 10 mcg (400 unit) capsule 10 mcg PO DAILY 01/26/22 magnesium 200 mg tablet 200 mg PO DAILY 10/17/23 promethazine 25 mg tablet 25 mg PO TID PRN nausea and vomiting #21 tabs 10/17/23 levothyroxine 25 mcg tablet 25 mcg PO DAILY 30 days #30 tabs 01/11/24 ondansetron 4 mg disintegrating tablet 4 mg PO TID PRN nausea and vomiting #21 tabs 03/08/24 vitamin B complex 1 tab PO QDAY 04/07/24 ivabradine 5 mg tablet 2.5 mg (1/2 x 5 mg) PO .COMPLEX #90 tabs 04/25/24 amoxicillin 875 mg-potassium clavulanate 125 mg tablet 1 tab PO BID 5 days #10 tabs 05/14/24 benzocaine 15 mg-menthol 3.6 mg lozenges (Sore Throat (benzocaine with menthol)) 1 meño mucous membrane Q2H PRN PRN SORE THROAT #0 ea 05/14/24 fludrocortisone 0.1 mg tablet 0.1 mg PO BID 30 days #60 tabs 05/14/24 sodium bicarbonate 650 mg tablet 650 mg PO TID 1 week #21 tabs 05/14/24 Physical Exam Narrative Seen and examined. Patient complains of some numbness/[employer] hydration Offori started on midodrine for low blood pressure. It was discontinued Patient chronically has low BP usually in 80s. She is on fludrocortisone states 0.1 mg twice daily. Was admitted with rapid emptying of her colostomy. She states she eats and it goes through straight and colostomy. No significant abdominal pain. She has Crohn's disease and celiac disease. Frequency of colostomy emptying has improved. Sore throat is also better. Physical exam General: Alert, Oriented x3, Cooperative, short stature, BMI 17.1 kg/m? HEENT: Atraumatic, PERRLA, EOMI, Normocephalic. Mild tenderness in anterior throat. Oral: Oral mucosa dry. No Gingival or Mucosal Lesions/ Ulcerations Neck: Supple, No JVD, Negative Carotid Bruits Chest wall/Lungs: Air entry diminished in bilateral lung bases. No crepitation/rhonchi Cardiovascular: Regular rate, Regular Rhythm, Normal S1, Normal S2, No M/G/R Abdomen: Bowel Sounds Present, Soft, Non Tender, Non-Distended. Left lower colostomy. : No dysuria. No renal angle tenderness. No suprapubic tenderness. Extremities: No edema, Capillary Refill Less than 3 Seconds Skin: No rashes, No breakdown Musculoskeletal: No Tenderness to Palpation of Joints or Extremities Spine: Multiple thoracic vertebral deformity. Kyphotic spine Neurological: Cranial nerves II-XII grossly intact, DTR 2+/4. No acute focal neurological deficit. Psych/Mental Status: Flat affect Weight / BMI Weight Weight: 79 lb 2.335 oz Body Mass Index (BMI) 17.1 ABG / Lab / Microbiology Data 05/14/24 05:26 05/14/24 05:26 Laboratory: Laboratory Results - last 24 hr 05/13/24 06:06: Magnesium 1.9 05/14/24 05:26: WBC 18.8 H, RBC 4.00 L, Hgb 11.5 L, Hct 33.7 L, MCV 84.3, MCH 28.8, MCHC 34.1, RDW Std Deviation 41.2, RDW Coeff of Enrique 13.6, Plt Count 365, MPV 9.6, Immature Gran % (Auto) 1.800 H, Neut % (Auto) 89.2 H, Lymph % (Auto) 6.1 L, Catron % (Auto) 2.7, Eos % (Auto) 0.0, Baso % (Auto) 0.2, Absolute Neuts (auto) 16.8 H, Absolute Lymphs (auto) 1.14, Nucleated RBC % 0, Sodium 138, Potassium 3.3, Chloride 109 H, Carbon Dioxide 16.8 L, Anion Gap 13, BUN 11, Creatinine 1.08, Estim Creat Clear Calc 40.42 L, Est GFR (MDRD) Non-Af 68, BUN/Creatinine Ratio 9.8 L, Glucose 124 H, Calcium 8.2 Microbiology: Microbiology 05/13/24 02:27 Mucosa - Nose SARS-CoV-2, Influenza & RSV (PCR) - Final 05/12/24 23:00 Mucosa - Throat Streptococcus pyogenes (PCR) - Final D/C Instructions Discharge Diet: Light diet - advance as tolerated Weight Bearing Status: Weight bearing as tolerated Call your doctor if you observe: Fever of 101 or Higher, Coldness, Increased Pain, Numbness or Tingling, Change in Color, Inability to urinate, Inability to have a bowel movement, Shortness of breath, Dizziness, Fainting spells, Swelling in the ankles, Chest pain, Prolonged hiccupping, Increased palpitations (irregular heartbeat) and Calf discomfort DC O2, CPAP, BIPAP Needs Home O2 Discharge instructions: No When: IN 2 WEEKS Meaningful Use Info Meaningful Use Meaningful Use Diagnoses (Choose all that apply): None applicable Ischemic Stroke Statin Dosing Therapy Reference: STATIN DOSE THERAPY REFERENCE: * Patients > 75 years receive moderate or high dose statin therapy. * Patients 75 years or YOUNGER should receive HIGH intensity statin dose unless contraindicated. You will be required to document reason for non-treatment if statin daily dose does not meet guidelines. HIGH DOSE STATIN THERAPY DAILY Atorvastatin > than or = to 40 mg Rosuvastatin > than or = to 20 mg Amlodipine + Atorvastatin > than or = to 2.5/40 mg Ezetimibe + Simvastatin 10/80 mg Simvastatin 80mg Discharge Plan Admission Admit Date/Time: 05/13/24 16:55 Primary Reason for Your Visit: Crohn's disease exacerbation with celiac disease, hyponatremia,POTS Attending Provider: Yousuf Pleitez Primary Care Provider: Antonio Roman Consulting Providers: Josiah Wilkins Discharge Orders/Prescriptions Prescriptions: New Sore Throat (benzocaine-menth) 15-3.6 mg Lozenge 1 meño mucous membrane Q2H PRN PRN (Reason: SORE THROAT) Qty: 0 0RF Rx Instructions: Jlfi-aix-alphexs sodium bicarbonate 650 mg Tablet 650 mg PO TID 7 Days Qty: 21 0RF amoxicillin-pot clavulanate 875-125 mg tablet 1 tab PO BID 5 Days Qty: 10 0RF Continued cholecalciferol (vitamin D3) 10 mcg (400 unit) capsule 10 mcg PO DAILY vitamin B complex Tablet 1 tab PO QDAY levothyroxine 25 mcg tablet 25 mcg PO DAILY 30 Days Qty: 30 0RF Patient Comments: Take 1 tablet by mouth DAILY (6 AM). ondansetron 4 mg tablet,disintegrating 4 mg PO TID PRN (Reason: nausea and vomiting) Qty: 21 0RF magnesium 200 mg tablet 200 mg PO DAILY promethazine 25 mg tablet 25 mg PO TID PRN (Reason: nausea and vomiting) Qty: 21 0RF ivabradine 5 mg tablet 2.5 mg PO .COMPLEX Qty: 90 3RF Rx Instructions: 2.5 mg orally; must administer with a meal/food, 5mg in AM and 2.5mg in PM Changed fludrocortisone 0.1 mg tablet 0.1 mg PO BID 30 Days Qty: 60 0RF Referrals / Follow Up: Ashley Caruso NP-C [Med Staff - Adv Practice Prof] - Within 2 Weeks Antonio Roman PA [Primary Care Provider] - Disposition Disposition (needs filled in before D/C Order can be placed): Home, Self Care Charges/Coding Visit Charges Inpatient E&M: 85071 Disch Hosp >30min
== END 2024-05-14 16:24 | disposition home or self-care (01) | DRG 386 ==
LOC: ED 22:57 → MS2 05-13 03:11
PROVIDERS: Family Medicine; Admitting Provider Family Medicine; Emergency Provider Emergency Medicine; PCP Physician Assistant; Visit Provider Internal Medicine
DX: K50.80 Crohn's disease of both small and large intestine without complications (principal); Z93.3 Colostomy status; E44.0 Moderate protein-calorie malnutrition; E87.20 Acidosis, unspecified; E87.1 Hypo-osmolality and hyponatremia; Z68.1 Body mass index [BMI] 19.9 or less, adult; N18.9 Chronic kidney disease, unspecified; E89.0 Postprocedural hypothyroidism; E86.0 Dehydration; G90.A Postural orthostatic tachycardia syndrome [POTS]; J02.9 Acute pharyngitis, unspecified; E86.1 Hypovolemia; Z79.899 Other long term (current) drug therapy; Z79.890 Hormone replacement therapy; E55.9 Vitamin D deficiency, unspecified
CPT/HCPCS: 36415; 71046; 80048; 80076; 82803; 83735; 84443; 85025; 87040; 87070; 87631; 87651; 96361; 96365; 96366; 96372; 96375; 96376; 97802; 99221; 99285; A4216; G0378; J0295

== ENCOUNTER → 2024-05-15 | Outpatient (CLI) | payer OTHER, SELFPAY ==
[2024-05-15 10:42] LABS: Absolute Lymphocyte Count 2.12 X10^3/uL (0.83-4.51); Absolute Neutrophil Count 9.8 X10^3/uL (2.0-7.7); Basophil# 0.05 X10^3/uL; Basophil% 0.4 % (0-1); Eosinophil# 0.01 X10^3/uL; Eosinophils% 0.1 % (0-5); Hematocrit 36.6 % (37-47); Hemoglobin 12.3 g/dL (12.0-15.0); Lymphocyte # 2.12 X10^3/ul (0.83-4.51); Lymphocyte % 15.9 % (19-41); Mean Corp Hgb Conc 33.6 g/dL (32-36); Mean Corpuscular Hgb 28.9 pg (27.0-32.0); Mean Corpuscular Volume 86.1 fL (81-99); Mean Platelet Vol. 9.5 fl (6.2-12.0); Monocyte# 1.07 X10^3/uL; NRBC Flagged by Analyzer 0 % (0-5); Neutrophil # 9.77 X10^3/uL (2.7-7.7); Neutrophil % 73.3 % (47-70); Platelet Count 388 K/mm3 (150-450); RBC Distribution Width CV 14.4 % (11.6-14.6); RBC Distribution Width SD 43.8 fl (35.1-43.9); Red Blood Count 4.25 M/mm3 (4.2-5.4); White Blood Count 13.3 K/mm3 (4.4-11.0)
[2024-05-15 11:10] LABS: ALB/GLOB Ratio 1.3 RATIO (0.9-2.4); AST(SGOT) 57 U/L (<=31); Alanine Aminotransfer ALT/SGPT 60 U/L (<=34); Albumin, Serum 3.6 g/dL (3.5-5.0); Alkaline Phosphatase 96 U/L (35-104); Anion Gap 12 (5-15); BUN 13 mg/dL (4-19); BUN/Creat Ratio 10.7 RATIO (10-20); CRP 5.54 mg/L (0.0-3.0); Calcium,Total 8.8 mg/dL (7.6-11.0); Carbon Dioxide 22.7 mmol/L (21.0-32.0); Chloride 109 mmol/L (98-108); Creatinine, Serum 1.18 mg/dL (0.70-1.20); EST Glomerular Filtration Rate 61 (>60); Globulin 2.7 g/dL (2.2-4.2); Glucose 83 mg/dL (70-99); Potassium 3.3 mmol/L (3.3-5.1); Protein, Total 6.3 g/dL (5.9-8.4); Sodium Level 143 mmol/L (133-145)
[2024-05-18 06:38] LABS: Calprotectin, Stool 52 ug/g (0-120)
== END | disposition home or self-care (01) ==
PROVIDERS: PCP Physician Assistant; Referring Provider Nurse Practitioner Acute Care; Visit Provider Nurse Practitioner Acute Care
DX: K50.818 Crohn's disease of both small and large intestine with other complication (principal); K90.0 Celiac disease
CPT/HCPCS: 36415; 80053; 83993; 85025; 86140

== ENCOUNTER → 2024-06-03 | Outpatient (CLI) | payer OTHER, SELFPAY ==
[2024-06-03 12:22] LABS: Absolute Lymphocyte Count 1.67 X10^3/uL (0.83-4.51); Absolute Neutrophil Count 4.3 X10^3/uL (2.0-7.7); Basophil% 1.4 % (0-1); Eosinophil# 0.28 X10^3/uL; Eosinophils% 3.9 % (0-5); Hematocrit 44.1 % (37-47); Hemoglobin 14.8 g/dL (12.0-15.0); Lymphocyte # 1.67 X10^3/ul (0.83-4.51); Lymphocyte % 23.5 % (19-41); Mean Corp Hgb Conc 33.6 g/dL (32-36); Mean Corpuscular Hgb 28.6 pg (27.0-32.0); Mean Corpuscular Volume 85.3 fL (81-99); Mean Platelet Vol. 9.5 fl (6.2-12.0); Monocyte% 9.8 % (0-10); NRBC Flagged by Analyzer 0 % (0-5); Neutrophil # 4.28 X10^3/uL (2.7-7.7); Neutrophil % 60.1 % (47-70); Platelet Count 412 K/mm3 (150-450); RBC Distribution Width CV 13.2 % (11.6-14.6); RBC Distribution Width SD 40.3 fl (35.1-43.9); Red Blood Count 5.17 M/mm3 (4.2-5.4); White Blood Count 7.1 K/mm3 (4.4-11.0)
[2024-06-03 12:56] LABS: ALB/GLOB Ratio 1.2 RATIO (0.9-2.4); AST(SGOT) 38 U/L (<=31); Alanine Aminotransfer ALT/SGPT 23 U/L (<=34); Albumin, Serum 4.1 g/dL (3.5-5.0); Alkaline Phosphatase 132 U/L (35-104); Anion Gap 12 (5-15); BUN 11 mg/dL (4-19); BUN/Creat Ratio 8.7 RATIO (10-20); Calcium,Total 9.5 mg/dL (7.6-11.0); Chloride 93 mmol/L (98-108); EST Glomerular Filtration Rate 54 (>60); Globulin 3.3 g/dL (2.2-4.2); Glucose 89 mg/dL (70-99); Potassium 3.3 mmol/L (3.3-5.1); Protein, Total 7.4 g/dL (5.9-8.4); Sodium Level 134 mmol/L (133-145); Total Bilirubin 0.34 mg/dL (0.00-1.30)
[2024-06-03 13:06] LABS: Osmolality, Serum 284 mOsm/KG (275-295)
[2024-06-03 13:07] LABS: Osmolality, Urine 357 mOsm/KG
[2024-06-04 15:08] LABS: Fats, Neutral Normal (.); Fats, Total Normal (.)
== END | disposition home or self-care (01) ==
LOC: BIMLAB 10:40
PROVIDERS: Nurse Practitioner Acute Care; PCP Physician Assistant; Referring Provider Physician Assistant; Visit Provider Physician Assistant
DX: K50.80 Crohn's disease of both small and large intestine without complications (principal); E87.8 Other disorders of electrolyte and fluid balance, not elsewhere classified; G90.A Postural orthostatic tachycardia syndrome [POTS]; R63.4 Abnormal weight loss; R53.83 Other fatigue; E86.0 Dehydration; K90.0 Celiac disease; I95.2 Hypotension due to drugs
CPT/HCPCS: 36415; 80053; 82705; 83735; 83930; 83935; 85025

== ENCOUNTER 2024-08-31 18:51 | Emergency (ER) | payer OTHER, SELFPAY ==
[2024-08-31 18:51] VITALS: BP 89/67; PULSE 115; RESP 18; TEMP 36.5; O2SAT 99; BMI 15.7
--- NOTE | 2024-08-31 19:17 | EX.ED.DYSGE1 ---
HPI History of Present Illness Chief Complaint: Nausea/Vomiting Detail of Chief Complaint: Nausea without vomiting Informant: patient Onset/Context/Timing Onset: Today Context: Sudden Onset Timing: Continuous Quality: Nausea Location: Queasy feeling abdomen Current Severity: Mild Maximum Severity: Moderate Worsened by: Nothing specific Relieved by: Nothing Associated Symptoms Associated Symptoms: Thirsty and concerned she is dehydrated Narrative Narrative: Patient is a 38-year-old female. She only weighs 32.9 kg. She has a past medical history of cholecystectomy due to Crohn's. POTS, chronic kidney disease, low blood pressure, thyroid cancer and adrenal insufficiency. She has been able to take her fluorinated steroid. She states this is for her POTS. She is on levothyroxine for hypothyroidism she is presently on no steroids. Patient states she was out in the sun yesterday for a long time. She may be a little dehydrated. She denies headache. Visual, ocular, or auditory symptoms. She does endorse dry mouth. She denies cardiorespiratory symptoms. She denies abdominal pain. Denies vomiting, diarrhea or constipation. She has a colostomy. She has no noted blood or black stool. Prior similar symptoms: Yes (Patient was seen May for GI symptoms with kidney disease. She was in Feb) Recent Illness/Hospitalization: No [facility] Medical History Adrenal insufficiency Metabolic acidosis Pharyngitis POTS (postural orthostatic tachycardia syndrome) Acute upper respiratory infection Vitamin D deficiency Underweight Palpitations Non-traumatic compression fracture of vertebra Cholelithiasis Ileostomy in place Anemia Thyroid cancer Home Medications ?Medication ?Instructions ?Recorded ?Last Taken ?Type cholecalciferol (vitamin D3) 10 10 mcg PO DAILY 01/26/22 Unknown History mcg (400 unit) capsule magnesium 200 mg tablet 200 mg PO DAILY 10/17/23 Unknown History promethazine 25 mg tablet 25 mg PO TID PRN nausea and 10/17/23 Unknown Rx vomiting #21 tabs vitamin B complex 1 tab PO QDAY 04/07/24 Unknown History sodium bicarbonate 650 mg tablet 650 mg PO TID 1 week #21 tabs 05/14/24 Unknown Rx ondansetron 4 mg disintegrating 4 mg PO TID PRN nausea and 05/15/24 Unknown Rx tablet vomiting #21 tabs fludrocortisone 0.1 mg tablet 0.1 mg PO BID #60 tabs 06/04/24 Unknown Rx levothyroxine 25 mcg tablet 25 mcg PO DAILY 30 days #90 tabs 06/06/24 Unknown Rx ivabradine 5 mg tablet 2.5 mg (1/2 x 5 mg) PO .COMPLEX 06/19/24 Unknown Rx #90 tabs Allergy/AdvReac Type Severity Reaction Status Date / Time adhesive tape Allergy Intermediate Rash Verified 08/31/24 18:51 infliximab Allergy Intermediate Shortness Verified 08/31/24 18:51 of breath adalimumab (From Humira) Allergy NEEDS Verified 08/31/24 18:51 FOLLOW-UP vancomycin Allergy Anaphylaxis Verified 08/31/24 18:51 Family History Father Hypertension Grandmother Colon cancer Osteoporosis Grandfather Cancer Grandfather Cancer Surgical History Hx of ileostomy History of cholecystectomy H/O thyroidectomy Social History adopted: No household members: spouse and children pets and animals: Yes (3 dogs) pets and animals: dog(s) Smoking Status: Never smoker Electronic Cigarette Use: not used second hand exposure: No alcohol intake: current alcohol intake frequency: holidays/special occasions only substance use type: does not use diet: other what type of physical activity do you participate in: walking and running frequency: 5-6 times per week seatbelt use: always do you feel safe at home: Yes ROS ROS ED Constitutional Constitutional ED: Denies chills, fever(s), subjective, sweats or weight loss Eyes Eyes: Denies blurry vision or change in vision ENT ENT ED: Denies rhinorrhea or sore throat Cardiovascular Cardiovascular: Denies chest pain or palpitations Respiratory/Chest Respiratory/Chest: Denies cough, dyspnea or dyspnea on exertion Gastrointestinal Gastrointestinal: Reports abdominal pain and nausea; Denies constipation, diarrhea, melena or vomiting Genitourinary Genitourinary ED: Denies dysuria, hematuria or urinary frequency Musculoskeletal Musculoskeletal: Denies arthralgias or myalgias Integumentary Denies rash Neurologic Neurologic: Reports weakness; Denies headache(s) Hematologic/Lymphatic Hematologic/Lymphatic: Reports systems reviewed and no addt'l complaints, except as documented EXAM Physical Exam Const Vital Signs: 08/31/24 18:51 08/31/24 19:51 Temperature 97.7 F L Temperature Source Oral Pulse Rate 115 H Pulse Rate [Lying] 81 Pulse Rate [Sitting (for 1 minute prior to obtaining)] 78 Pulse Rate [Standing (for 1 minute prior to obtaining)] 95 Respiratory Rate 18 Blood Pressure 89/67 L Blood Pressure [Lying] 92/63 Blood Pressure [Sitting (for 1 minute prior to obtaining)] 103/73 Blood Pressure [Standing (for 1 minute prior to obtaining)] 95/74 Blood Pressure Mean 74 Blood Pressure Mean [Lying] 72 Blood Pressure Mean [Sitting (for 1 minute prior to obtaining)] 83 Blood Pressure Mean [Standing (for 1 minute prior to obtaining)] 81 Pulse Ox 99 Oxygen Delivery Method Room Air Positive well nourished and well developed General Appearance ED: well developed and NAD; Negative for cyanotic, diaphoretic or pallor HEENT Reports dry mucous membranes HEENT Narrative: Petite 38-year-old. Head is atraumatic, cephalic. Ears normal. Nares patent. Posterior pharynx was normal. Mouth ED: Yes dry mucous membranes Mouth: dry mucous membranes Eyes PERRL and EOMs intact bilaterally General Eye ED: Negative for pale conjunctiva Neck no lymphadenopathy, supple and no JVD Resp normal respiratory effort and clear to auscultation bilaterally Cardio regular rhythm, S1 normal heart sound, S2 normal heart sound and no murmurs Rate: tachycardic GI GI Narrative: Abdomen is tympanitic. There is no tenderness. Bowel sounds are diminished. Colostomy/ileostomy noted left lower quadrant Auscultation: hypoactive bowel sounds Palpation: soft Back/Spine no CVA tenderness Extremity normal to inspection General Extremety ED: Negative for edema or tenderness General Extremity: Negative for edema Neuro oriented x3 and CN's II-XII intact bilaterally Sensorium / Orientation: alert Psych Mood & Affect: tearful Skin no rashes or lesions noted, no wounds and skin turgor normal General Skin Exam: Negative for jaundice or pallor MDM MDM MDM Narrative Medical decision making narrative: In light of patient's past medical history obtain electrolytes to assess for hyponatremia, hyperkalemia, renal function and glucose. CBC to assess H&H. Based on her weight she will receive a 500 cc bolus of normal saline and Zofran for her nausea. History & Record Review Additional record(s) reviewed:: Prior ED visit (Documented in the HPI narrative) and Prior labs Lab Data Labs: Laboratory Results - last 24 hr 08/31/24 19:14 Sodium 130 L Potassium 5.6 H Chloride 90 L Carbon Dioxide 21.9 Anion Gap 19 H BUN 40 H Creatinine 2.88 H Estim Creat Clear Calc 13.90 L Est GFR (MDRD) Non-Af 21 L BUN/Creatinine Ratio 13.9 Glucose 106 H Calcium 9.9 Patient's sodium is low at 130. Potassium is elevated however it hemolyzed. BUN and creatinine are elevated from baseline at 40 and 2.8. Treatment and Re-Evaluation :: Patient was informed recommendation is admission. She states she had a bad experience. She did not like the physician that admitted. The same physicians on-call this evening. She asked if I would give her additional fluids and arrange for outpatient blood testing. Spoke with nurse practitioner Francisco Javier for the [facility]. Plan is repeat BMP Sunday. They will follow-up the results and talk with Lolis. An additional liter was ordered. Patient was told to take the same amount of bicarb as normal. Increase her sodium intake and encourage more fluids. And to drink significantly more fluids if she goes out in the hot weather Discharge Plan Triage Chief Complaint: Nausea/Vomiting ED Provider: Rudi Chiu Dx/Rx/DC Orders Clinical Impression: Acute kidney injury, POTS (postural orthostatic tachycardia syndrome), Acute dehydration, Acute hyponatremia, High anion gap, Low blood pressure, History of Crohn's disease Instructions: ED Renal Insufficiency Prescriptions: No Action cholecalciferol (vitamin D3) 10 mcg (400 unit) capsule 10 mcg PO DAILY vitamin B complex Tablet 1 tab PO QDAY ondansetron 4 mg tablet,disintegrating 4 mg PO TID PRN (Reason: nausea and vomiting) Qty: 21 0RF magnesium 200 mg tablet 200 mg PO DAILY promethazine 25 mg tablet 25 mg PO TID PRN (Reason: nausea and vomiting) Qty: 21 0RF sodium bicarbonate 650 mg Tablet 650 mg PO TID 7 Days Qty: 21 0RF fludrocortisone 0.1 mg tablet 0.1 mg PO BID Qty: 60 3RF levothyroxine 25 mcg tablet 25 mcg PO DAILY 30 Days Qty: 90 1RF Patient Comments: Take 1 tablet by mouth DAILY (6 AM). ivabradine 5 mg tablet 2.5 mg PO .COMPLEX Qty: 90 3RF Rx Instructions: 2.5 mg orally; must administer with a meal/food, 5mg in AM and 2.5mg in PM Primary Care Provider: Antonio Roman Referrals: Antonio Roman, SHASTA [Primary Care Provider] - 2 Days Activity Restrictions/Additional Instructions: 1. Go to outpatient lab for blood test in the morning. Results will be called to your provider Sebas Ashley nurse practitioner. 2. You need to increase your fluid intake 3. You need to increase your salt tablets Print Language: Maltese Disposition Disposition: Home, Self Care
[2024-08-31] MEDS: 0.9% Normal Saline (500mL Bag) 500 ML 999 ML IV (19:22)
[2024-08-31] MEDS: Ondansetron 4 MG/2 ML Vial 3 MG IV (19:22)
--- OUTSIDE RECORDS SUMMARY | 2024-08-31 19:31 | XMS RPT_ITS | CCD ---
Author Organization [facility] [place] [facility] Team Providers Care Pit Furnace Operator Name Role Phone DARIN CORMIER Unavailable Unavailable DARIN CORMIER Unavailable Unavailable Alba Diaz MD Primary Care Provider Alba Diaz MD Primary Care Provider Alba Diaz MD Primary Care Provider Alba Diaz MD Primary Care Provider Podlogar ENDOCRINOLOGY PHYSICIAN.Katlyn CORDOVA Unavailable Alba Diaz MD Primary Care Provider Podlogar ENDOCRINOLOGY PHYSICIAN.Katlyn CORDOVA Unavailable Dr. Chad Coleman DO Attending Provider Dr. Chad Coleman DO Emergency Provider Care Physician, No Primary Primary Care Provider Unavailable Care Physician, No Primary Referring Provider Un available Antonio Lees Attending Provider Antonio Lees Referring Provider Dr. Jose Guadalupe Lazo DO Attending Provider [phone] Jose Guadalupe Lazo DO Emergency Provider [phone] Ashley Fofana Attending Provider Antonio Lees Primary Care Provider Ashley Fofana Referring Provider Dr. Guerrero Fuller DO Attending Provider Dr. Guerrero Fuller DO Emergency Provider Dr. Brendon Dave MD Attending Provider Aram MUSE, Dr. Grijalva Emergency Provider Claudette MUSE, Dr. Rahman Attending Provider Claudette MUSE, Dr. Rahman Admit Provider Claudette MUSE, Dr. Rahman Other Provider Maik MUSE, Dr. To Attending Provider Maik MUSE, Dr. To Other Provider Care Physician, No Primary Primary Care Provider Unavailable King ALMAZ, Dr. Corona Attending Provider Marissa ENDOCRINOLOGY PHYSICIAN.MANAGER CREDIT COLLECTIONS, Leah Unavailable Ashley Caruso Attending Unavailable Ashley Caruso Referring Unavailable Wayt PA, Antonio Primary Care Unavailable Wilkins, Josiah Admitting Unavailable WilkinsJosiah gomez Consulting Unavailable Maik, Yousuf Attending Unavailable Wayt PA, Antonio Primary Care Unavailable WilkinsJosiah Admitting Unavailable WilkinsJosiah Consulting Unavailable Yousuf Pleitez Attending Unavailable Wayt PA, Antonio Primary Care Unavailable Yousuf Pleitez Consulting Unavailable Wayt PA, Antonio Primary Care Unavailable Wayt PA, Antonio Attending Unavailable Wayt PA, Antonio Referring Unavailable Wayt PA, Antonio Primary Care Unavailable Wayt PA, Antonio Attending Unavailable Wayt PA, Antonio Referring Unavailable Damaris Almaraz Attending Unavailable GodmanDamaris Referring Unavailable Ferullo, Philippe Primary Care Unavailable Care Physician, No Primary Primary Care Unava ilable Chad Coleman Attending Unavailabl e Care Physician, No Primary Primary Care Unava ilable Jose Guadalupe Lazo Attending Unavailable Wayt PA, Antonio Primary Care Unavailable WilkinsJosiah Attending Unavailable Wayt PA, Antonio Primary Care Unavailable Wayt PA, Antonio Attending Unavailable Wayt PA, Antonio Referring Unavailable Ferullo, Philippe Attending Unavailable Ferullo, Philippe Referring Unavailable Ferullo, Philippe Primary Care Unavailable Ferullo, Philippe Referring Unavailable Ferullo, Philippe Primary Care Unavailable Wayt PA, Antonio Attending Unavailable Wayt PA, Antonio Primary Care Unavailable Wayt PA, Antonio Attending Unavailable Wayt PA, Antonio Referring Unavailable Ashley Caruso Attending Unavailable Wayt PA, Antonio Primary Care Unavailable Wayt PA, Antonio Referring Unavailable Care Physician, No Primary Primary Care Unava ilable Wayt PA, Antonio Referring Unavailable Wayt PA, Antonio Attending Unavailable Ashley Caruso Attending Unavailable Ashley Caruso Referring Unavailable Wayt PA, Antonio Primary Care Unavailable Ky, Cj Attending Unavailable Ky, Cj Referring Unavailable Wayt PA, Antonio Primary Care Unavailable Ky, Cj Attending Unavailable Ky, Cj Referring Unavailable Wayt PA, Antonio Primary Care Unavailable Wayt PA, Antonio Primary Care Unavailable Tenzin, Brendon Attending Unavailable Wayt PA, Antonio Primary Care Unavailable Tenzin, Brendon Attending Unavailable Wayt PA, Antonio Referring Unavailable Wayt PA, Antonio Primary Care Unavailable Wayt PA, Antonio Attending Unavailable Wayt PA, Antonio Referring Unavailable Guerrero Fuller Attending Unavailable Wayt PA, Antonio Primary Care Unavailable Wayt PA, Antonio Primary Care Unavailable Wayt PA, Antonio Referring Unavailable Wayt PA, Antonio Attending Unavailable Wayt PA, Antonio Referring Unavailable Wayt PA, Antonio Primary Care Unavailable Tenzin, Brendon Attending Unavailable Ashley Caruso Attending Unavailable Wayt PA, Antonio Primary Care Unavailable Wayt PA, Antonio Referring Unavailable Cj Mcpherson Attending Unavailable Wayt PA, Antonio Primary Care Unavailable Wayt PA, Antonio Referring Unavailable Care Physician, No Primary Referring Unava ilable Care Physician, No Primary Primary Care Unava ilable Wayt PA, Antonio Attending Unavailable Care Physician, No Primary Primary Care Unava ilable Care Physician, No Primary Referring Unava ilable Ashley Caruso Attending Unavailable Ferullo, Philippe Primary Care Unavailable Guerrero Fuller Attending Unavailable Ferullo Philippe Attending Unavailable Ferullo, Philippe Referring Unavailable Ferullo, Philippe Primary Care Unavailable Ferullo, Philippe Attending Unavailable Ferullo, Philippe Referring Unavailable Ferullo, Philippe Primary Care Unavailable Ashley Caruso Attending Unavailable Ashley Caruso Referring Unavailable Wayt PA, Antonio Primary Care Unavailable Wayt PA, Antonio Primary Care Unavailable Wayt PA, Antonio Referring Unavailable Wayt PA, Antonio Attending Unavailable CLAIR, PHILIPPE Referring Unavailable ALBA DIAZ Primary Care Unavailab NÉSTOR Landers Admitting Unavailable NÉSTOR GRECO Attending Unavailable ALBA WOLFE Referring Unavailable THADDEUS TOMLINSON Attending UnavailALBA Maurer Primary Care Unavailab PHILIPPE Platt Attending Unavailable CAREN HOUSER Attending Unavail ALBA Carpio Primary Care Unavailab asael Allergies Allergy Classification Reported Allergen(s) Allergy Type Date of Onset Reaction(s) Facility (20 sources) adalimumab; Translations: [ADALIMUMAB] Drug Allergy 0 Intolerance [facility] Repository (20 sources) Adhesive Tape; Translations: [ADHESIVE TAPE (ROSINS)] Propensity to adverse reactions (disorder) 1 Rash [facility] Repository (20 sources) inFLIXimab; Translations: [INFLIXIMAB] Drug Allergy 0 Shortness of Breath [facility] Repository (20 sources) iron; Translations: [IRON] Drug Allergy 2 Intolerance [facility] Repository (20 sources) vancomycin; Translations: [VANCOMYCIN] Drug Allergy 1 [facility] Repository (1 source) HUMARA Allergy to substance 2 [facility] Work Phone: (3 sources) Adhesive Tape; Translations: [adhesive tape] Allergy to substance 5 [facility] (1 source) Gluten; Translations: [GLUTEN] Propensity to adverse reactions to drug (disorder) 5 [facility] Medications Current Medications Medication Drug Class(es) Dates Sig (Normalized) Sig (Original) acetaminophen 325 mg oral tablet (5 sources) take 2 tablets by mouth every four hours as needed acetaminophen (TYLENOL) 325 mg tablet Take 650 mg by mouth every 4 hours as needed for pain. Active cephalexin 50 mg/ml oral suspension (2 sources) Cephalosporin Antibacterial Start: 01-18-2022 End: 01-25-2022 take 10 mL by mouth twice daily cephALEXin (KEFLEX) 250 mg/5 mL suspension Take 10 mL by mouth twice daily for 7 days. 140 mL 0 01/18/2022 01/25/2022 Active Comment on above: Take 10 mL by mouth twice daily for 7 days. cholecalciferol 0.01 mg oral capsule (4 sources) Vitamin D Start: 01-26-2022 take 1 capsule by mouth once daily Cholecalciferol (Vitamin D3) 10 mcg (400 unit) capsule Active 10 ug PO DAILY January 26, 2022 1:00am Start: 06-06-2021 End: 06-06-2021 take 5 tablets by mouth once daily cholecalciferol (VITAMIN D-3) 400 unit tab Take 5 tablets by mouth once daily. 150 tablet 2 06/06/2021 06/06/2021 Discontinued Comment on above: Take 5 tablets by mo ut once daily. cholecalciferol, vitamin D3, (VITAMIN D3 ORAL) (14 sources) cholecalciferol, vitamin D3, (VITAMIN D3 ORAL) Take by mouth once daily. Active cholecalciferol, vitamin D3, (VITAMIN D3 ORAL) Take by mouth. 0 Active Comment on above: Take by mouth. fludrocortisone acetate 0.1 mg oral tablet (11 sources) Start: take 1 tablet by mouth every twelve hours fludrocortisone (FLORINEF) 0.1 mg tablet Take 1 tablet by mouth every 12 hours. 06/10/2024 Active Start: 06-03-2024 End: 06-04-2024 take 1 tablet by mouth three times daily Fludrocortisone 0.1 mg tablet Discontinued 0.1 mg PO THREE TIMES A DAY June 03, 2024 9:34am June 04, 2024 8:25am Start: 03-26-2024 End: 06-03-2024 take 1 tablet by mouth twice daily Fludrocortisone 0.1 mg tablet Discontinued 0.05 mg PO TWICE A DAY 60 May 09, 2024 2:03pm May 14, 2024 4:43pm Start: 03-21-2024 End: 03-26-2024 take 1 tablet by mouth once daily Fludrocortisone 0.1 mg tablet Discontinued 0.05 mg PO daily March 21, 2024 1:00am March 26, 2024 6:15pm iv contrast (will be provided with radiology test) (1 source) Start: 11-08-2023 End: 11-09-2023 iv contrast (will be provided with radiology test) MRI Female Pelvis Inject, intravenously, once for 1 dose. No IV access, insert saline lock prior to the beginning of sedation, infusion, injection of imaging exam. Discontinue saline lock post exam. If Pt has a central line or IVAD, may access for administration according to line specific nursing protocol. Once exam is complete flush line and de-access according to line specific nursing protocol in the MR contrast administration guidelines link. 1 Each 11/08/2023 11/09/2023 Active ivabradine 5 mg oral tablet (7 sources) Hyperpolarization- activated Cyclic Nucleotide-gated Channel Jared Start: 06-21-2024 ivabradine (CORLANOR ) 5 mg tablet Taking 1 tablet in the morning and 1/2 tablet at night 06/21/2024 Active Start: 04-10-2024 End: 04-25-2024 take 1 tablet by mouth twice daily at mealtime Ivabradine 5 mg tablet Discontinued 2.5 mg PO TWICE A DAY April 14, 2024 4:50pm April 25, 2024 9:37pm must administer with a meal/food levothyroxine sodium 0.025 mg oral tablet (20 sources) l-Thyroxine Start: 03-29-2021 End: 06-06-2024 levothyroxine (SYNTHROID) 25 mcg tablet TAKE 1 TABLET DAILY (6 A.M.) 90 tablet 10/27/2022 Active Comment on above: Take 1 tablet by andreea DAILY (6 AM). TAKE 1 TABLET DAILY (6 A.M.) Magnesium (2 sources) Start: 10-17-2023 take 1 tablet by mouth once daily Magnesium 200 mg tablet Active 200 mg PO DAILY October 17, 2023 12:00am Multivitamin capsule (18 sources) take 1 capsule by mouth once daily Multivitamin capsule Take 1 capsule by mouth once daily. Active take 1 capsule by mouth once job ly Multivitamin capsule Take 1 capsule by mouth once daily. 0 Active Comment on above: Take 1 capsule by mo [facility] once daily. ondansetron 4 mg disintegrating oral tablet (20 sources) Serotonin-3 Receptor Antagonist Start: 03-08-20 End: 05-16-19 take 1 tablet by mouth three times daily as needed for nausea and vomiting Ondansetron 4 mg tablet,disintegrati ng Active 4 mg PO THREE TIMES A DAY as needed for nausea and vomiting May 15, 2024 10:31am Start: 11-06-2023 End: 05-13-2024 take 1 tablet by mouth every eight hours as needed for nausea Ondansetron 8 mg tablet,disintegrating Discontinued 8 mg PO EVERY 8 HOURS NEEDED as needed for Nausea November 06, 2023 2:07pm May 13, 2024 3:25am Start: 06-06-2021 take 1 tablet by andreea th once daily as needed for nausea ondansetron orally disintegrating (ZOFRA N ODT) 4 mg disintegrating tablet Take 1 tablet by mouth once daily as needed for nausea/vomiting. 30 tablet 2 06/06/2021 Active Start: 09-04-2019 End: 11-06-2023 take 1 tablet by mouth every eight hours as needed for nausea Ondansetron 4 MG tablet Discontinued 4 m g PO EVERY 8 HOURS NEEDED as needed for Nausea September 04, 2019 12:00am November 06, 2023 2:08pm Comment on above: Take 1 tablet by andreea th once daily as needed for nausea/vomiting. promethazine hydrochloride 25 mg oral tablet (3 sources) Phenothiazine Start: take 1 tablet by mouth three times daily as needed for nausea and vomiting Promethazine 25 mg tablet Active 25 mg PO THREE TIMES A DAY as needed for nausea and vomiting October 17, 2023 12:00am Start: 02-21-2019 End: 04-18-2021 take 1 tablet by mouth every six hours as needed promethazine (PHENERGAN) 25 mg tablet Take 1 tablet by mouth every 6 hours as needed. 30 tablet 1 02/21/2019 04/18/2021 Discontinued (Course of therapy completed) sodium bicarbonate 650 mg oral tablet (3 sources) Start: 05-14-2024 take 1 tablet by mouth three times daily Sodium Bicarbonate 650 mg Tablet Active 650 mg PO THREE TIMES A DAY 29 09May 14, 2024 1:00am Start: 04-22-2019 End: 06-07-2020 sodium bicarbonate 650 mg ta blet Indications: Metabolic acidosis take 1 tablet twice a day 180 tablet 5 04/22/2019 06/07/2020 Discontinued Surgical Lubricant Jelly gel (3 sources) Start: 11-08-2023 End: 12-28-2023 Surgical Lubricant Jelly gel For MRI Female Pelvis, MRI department to provide. Administer intra-vaginal Surgilube immediately prior the MRI procedure (total amount to patient toleranace). 3 g 11/08/2023 12/28/2023 Active terconazole 4 mg/ml vaginal cream (1 source) Azole Antifungal Start: 10-31-2021 End: 11-07-2021 terconazole (TERAZOL 7) 0.4 % vaginal cream Use 1 Applicator vaginally daily at bedtime for 7 days. 45 g 0 10/31/2021 11/07/2021 Active Comment on above: Use 1 Applicator vag inally daily at bedtime for 7 days. Vitamin B Complex tablet (2 sources) Start: 04-07-2024 Vitamin B Comp lu tablet Active 1 {tbl} PO daily April 07, 2024 1:00am vitamin B complex vit C no.3 (VITAMIN B COMP AND C NO.3 ORAL) (6 sources) vitamin B comple x vit C no.3 (VITAMIN B COMP AND C NO.3 ORAL) Take by mouth once daily. Active vitamin B comple x vit C no.3 (VITAMIN B COMP AND C NO.3 ORAL) Take by mouth. 0 Active Comment on above: Take by mouth. Completed/Discontinued Medications Medication Drug Class(es) Dates Sig (Normalized) Sig (Original) acetaminophen 21.7 mg/ml / HYDROcodone bitartrate 0.5 mg/ml oral solution (3 sources) Opioid Agonist Start: 09-04-2019 End: 09-07-2019 take 1 mL by mouth every six hours as needed for pain Hydrocodone-Acetami nophen 15 ML solution Discontinued 10 mL PO EVERY 6 HOURS NEEDED as needed for Pain Score 6-10/10 100 3 September 04, 2019 September 06, 2019 12:00am September 07, 2019 12:02am Start: 09-04-2019 End: 09-07-2019 take 1 mL by mouth every six hours as needed Hydrocodone-Acetaminophen Discontinued 1 0 ML PO EVERY 6 HOURS NEEDED 100 3 September 04, 2019 September 07, 2019 12:02am amoxicillin 875 mg / clavulanate 125 mg oral tablet (2 sources) Penicillin-class Antibacterial Start: 05-14-2024 End: 05-28-2024 Amoxicillin-Pot Clavulanate 875-125 mg tablet Discontinued 1 {tbl} PO TWICE A DAY 10 5 May 14, 2024 1:00am May 28, 2024 7:50am benzocaine 15 mg / menthol 3.6 mg oral lozenge (2 sources) Standardized Chemical Allergen Start: 05-14-2024 End: 05-15-2024 Benzocaine-Menthol (Sore Throat (Benzocaine-Menth)) 15-3.6 mg Lozenge Discontinued 1 NMA MUCOUS MEM EVERY 2 HOURS NEEDED as needed for SORE THROAT 0 May 14, 2024 1:00am May 15, 2024 10:01am [id number]-[id number] benzonatate 100 mg oral capsule (2 sources) Non-narcotic Antitussive Start: 02-07-2024 End: 02-21-2024 take 1 capsule by mouth twice daily as needed for cough Benzonatate 100 mg capsule Discontinued 100 mg PO TWICE A DAY as needed for cough 15 February 07, 2024 1:00am February 21, 2024 2:41pm betamethasone 0.5 mg/ml / clotrimazole 10 mg/ml topical cream (1 source) Azole Antifungal, Corticosteroid Start: 08-26-2019 End: 03-16-2020 clotrimazole-betame thasone (LOTRISONE) cream Apply 1 application to affected area twice daily. 30 g 08/26/2019 03/16/2020 Discontinued (Discontinued by Patient) clobetasol propionate 0.0005 mg/mg topical ointment (11 sources) Corticosteroid Start: 09-26-2021 End: 11-08-2023 clobetasol (TEMOVATE) 0.05 % ointment Indications: Vaginal itching Apply thin layer to affected area once a day x 4wks, then every other day for 4 wks, then twice a day for 4 weeks then PRN for symptoms 60 g 3 05/29/2023 11/08/2023 Discontinued Comment on above: Apply thin layer to affected area once a day x 4wks, then every other day for 4 wks, then twice a day for 4 weeks then PRN for symptoms 24 hr dilTIAZem hydrochloride 120 mg extended release oral capsule (2 sources) Calcium Channel Jared Start: 03-08-2024 End: 03-21-2024 take 1 capsule by mouth once daily in the morning, then take 1 capsule by mouth every twenty-four hours Diltiazem Hcl (Cardizem Cd) 120 mg capsule,extended release 24hr Discontinued 120 mg PO EVERY MORNING March 08, 2024 1:00am March 21, 2024 9:56am Norethindrone Ac-Eth Estradiol (7 sources) Estrogen Start: 01-26-2022 End: 11-06-2023 Norethindrone Ac-Eth Estradiol (03/31 (21)) 1-20 mg-mcg tablet Discontinued 1 {tbl} PO DAILY January 26, 2022 1:00am November 06, 2023 2:07pm Start: 09-28-2020 End: 09-26-[address] Acet-Ethinyl E st (,) 1-20 mg-mcg per tablet Take one active pill continuously x 3 months - discard inactive pills 4 Package 4 09/28/2020 09/26/2021 Discontinued Start: 09-28-2020 Norethindrone Acet-Ethinyl Est (,) 1-20 mg-mcg per tablet Take one active pill continuously x 3 months - discard inactive pills 4 Package 4 09/28/2020 Active Start: 08-26-2019 End: 08-20-2020 [address]rone Acet-Ethinyl E st (,) 1-20 mg-mcg per tablet Take one active pill continuously x 3 months - discard inactive pills 3 Package 3 08/26/2019 08/20/2020 Discontinued Comment on above: Take one active pill continuously x 3 months - discard inactive pills fluconazole 100 mg oral tablet (3 sources) Azole Antifungal Start: End: take 1 tablet by mouth once daily Fluconazole 100 mg tablet Discontinued 100 mg PO DAILY June 21, 2023 12:00am November 06, 2023 2:08pm Start: 01-18-2022 End: 01-18-2022 fluconazole (DIFLUCAN) 150 m g tablet Take 1 tablet by mouth one time only for 1 dose. Repeat in 3 days as needed. 2 tablet 0 01/18/2022 01/18/2022 Active Comment on above: Take 1 tablet by andreea one time only for 1 dose. Repeat in 3 days as needed. glucagon (rdna) 1 mg injection (1 source) Antihypoglycemic Agent Start: 020 End: inject 1 mg intravenously once glucagon (GLUCAGEN) 1 mg/mL injection Inject 1 mg intravenously one time only for 1 dose. For MRI Enterography, Inject 1 mg intravenously, as directed. Slow push at the appropriate time during MRI Scan 1 mg 11/02/2019 03/16/2020 Discontinued (Course of therapy completed) LORazepam 0.5 mg oral tablet (4 sources) Benzodiazepine Start: End: take 0.5 tablet by mouth once daily as needed for anxiety, then take 1 tablet by mouth once daily as needed for anxiety Lorazepam 0.5 mg tablet Discontinued 0 PO daily as needed for anxiety February 28, 2024 3:30pm April 10, 2024 10:03am 1/2 tab (0.25) - 1 tab (0.5mg) orally daily PRN; metoprolol tartrate 25 mg oral tablet (6 sources) beta-Adrenergic Jared Start: End: Metoprolol Tartrate 25 mg tablet Discontinued 12.5 mg PO TWICE A DAY April 10, 2024 10:02am April 10, 2024 4:08pm Start: 03-21-2024 End: 04-10-2024 Metoprolol Tartrate 25 mg ta blet Discontinued 12.5 mg PO THREE TIMES A DAY March 21, 2024 9:57am April 10, 2024 10:03am Start: 03-08-2024 End: 03-21-2024 take 1 tablet by mouth twice daily Metoprolol Tartrate 25 mg tablet Discontinued 25 mg PO TWICE A DAY March 08, 2024 1:00am March 21, 2024 9:57am potassium chloride 10 meq extended release oral capsule (20 sources) Start: 01-26-2022 End: 11-06-2023 take 1 capsule by mouth once daily Potassium Chloride 10 mEq capsule, extended release Discontinued 10 meq PO DAILY January 26, 2022 1:00am November 06, 2023 2:08pm Start: 09-24-2019 take 1 tablet by andreea th once daily potassium chloride (KLOR-CON 10) 10 mEq tablet Take 1 tablet by mouth once daily. 90 tablet 5 09/24/2019 Active Comment on above: Take 1 tablet by andreea th once daily. predniSONE 1 mg oral tablet (20 sources) Start: 03-21-2024 End: 03-26-2024 take 1 tablet by mouth once daily Prednisone 1 mg tablet Discontinued 1 mg PO daily March 21, 2024 1:00am March 26, 2024 6:16pm Start: 02-21-2024 End: 03-03-2024 Prednisone 5 mg tablet Disco ntinued 5 mg PO As Directed February 21, 2024 1:00am March 03, 2024 2:43pm see taper instructions: 6 tabs x 1, 5 tabs x 1, 4 tabs x 1, 3 tabs x 1, 2 tabs x 1, 1 tab x 1 Start: 01-25-2024 End: 03-21-2024 take 1.5 mg by mouth once daily Prednisone 1 mg tablet Discontinued 1.5 mg PO DAILY January 25, 2024 9:58am March 03, 2024 2:43pm Start: 11-06-2023 End: 01-25-2024 take 2 tablets by mouth once daily Prednisone 1 mg tablet Discontinued 2 mg PO DAILY November 06, 2023 12:00am January 25, 2024 9:59am Start: 06-06-2021 take 3 tablets by mo uth once daily predniSONE (DELTASONE) 5 mg tablet Take 3 tablets po every day 60 tablet 06/06/2021 Active Start: 05-19-2021 End: 06-06-2021 take 8 tablets by mouth once daily, then take 1 tablet by mouth every week predniSONE (DELTASONE) 5 mg tablet PO. 8 tablets daily X 7 days, then taper by one tablet once per week until gone. This is an 8 week long taper. 252 tablet 0 05/19/2021 06/06/2021 Discontinued Comment on above: Take 3 tablets po ev anibal day PO. 8 tablets daily X 7 days, then taper by one tablet once per week until gone. This is an 8 week long taper. Risankizumab-Rzaa (Skyrizi) 60 mg/mL solution (2 sources) Start: 05-30-2022 End: 06-21-2023 Risankizumab-Rzaa (Skyrizi) 60 mg/mL solution Discontinued 600 mg .Route every 4 weeks May 30, 2022 12:00am June 21, 2023 9:50am Infuse 600mg every four week for a total of three infusions. 1 ml ustekinumab 90 mg/ml prefilled syringe (3 sources) Interleukin-12 Antagonist, Interleukin-23 Antagonist Start: 01-27-2021 End: 06-06-2021 ustekinumab (STELARA) 90 mg/mL injection Inject subcutaneously 90 mg/mL every eight (8) weeks 1 Each 3 01/27/2021 06/06/2021 Discontinued Start: 12-17-2019 End: 04-06-2020 ustekinumab (STELARA) 90 mg/ mL injection Inject 1 mL subcutaneously every 6 weeks. 1 mL 4 12/17/2019 04/06/2020 Discontinued Comment on above: Inject subcutaneousl y 90 mg/mL every eight (8) weeks Vitamin B Complex (2 sources) Start: 06-21-2023 End: 04-07-2024 Vitamin B complex Discontinued PO June 21, 2023 12:00am April 07, 2024 2:35pm takes 2 gummies daily Problems Active Problems Problem Classification Problem Date Documented Da te Episodic/Chronic Acute and unspecified renal failure (9 sources) Acute renal failure syndrome; Translations: [Acute kidney failure, unspecified] Onset: 7 Resolved: 9 03-11-2019 Episodic Acute bronchitis (2 sources) Acute viral bronchitis; Translations: [Acute bronchitis due to other specified organisms] 02-15-2024 Episodic Administrative/social admission (2 sources) First encounter by subject; Translations: [Persons encountering health services in other specified circumstances] 03-31-2024 Episodic Allergic reactions (1 source) Spongiotic dermatitis; Translations: [Other specified dermatitis] Episodic Cancer of thyroid (20 sources) Papillary thyroid carcinoma; Translations: [Malignant neoplasm of thyroid gland] Onset: 1 08-05-2020 Chronic Cardiac dysrhythmias (15 sources) Postural orthostatic tachycardia syndrome ; Translations: [Postural orthostatic tachycardia syndrome] 04-07-2024 Chronic Chronic kidney disease (20 sources) Chronic kidney disease stage 3; Translations: [CKD (chronic kidney disease) stage 3, GFR 30-59 ml/min] Onset: 0 04-24-2019 Chronic Complications of surgical procedures or medical care (17 sources) Postoperative hypothyroidism; Translations: [Postprocedural hypothyroidism] Onset: 1 08-05-2020 Chronic Contraceptive and procreative management (14 sources) Patient encounter status; Translations: [Encounter for other general counseling and advice on contraception] Onset: 4 Resolved: 7 Episodic Female infertility (18 sources) Female infertility; Translations: [Female infertility, unspecified] Onset: 8 12-10-2017 Chronic Fluid and electrolyte disorders (20 sources) Dehydration; Translations: [Dehydration] Onset: 3 Resolved: 9 03-07-2021 Episodic Genitourinary symptoms and ill-defined conditions (3 sources) Increased frequency of urination; Translations: [Frequency of micturition] Onset: 5 Episodic Immunizations and screening for infectious disease (1 source) Encounter for screening for human papillomavirus (HPV); Translations: [Special screening examination for human papillomavirus (HPV)] Onset: 5 Episodic Lymphadenitis (5 sources) Cervical lymphadenitis; Translations: [Nonspecific lymphadenitis, unspecified] 04-16-2021 Episodic Mycoses (2 sources) Candidiasis of mouth; Translations: [Candidal stomatitis] 06-21-2023 Episodic Noninfectious gastroenteritis (10 sources) Acute gastroenteritis; Translations: [Noninfective gastroenteritis and colitis, unspecified] Onset: 5 05-13-2024 Episodic Nutritional deficiencies (2 sources) Vitamin D deficiency; Translations: [Vitamin D deficiency, unspecified] Chronic Osteoporosis (4 sources) Osteoporosis; Translations: [Age-related osteoporosis without current pathological fracture] Onset: 5 06-03-2024 Chronic Other circulatory disease (7 sources) Low blood pressure; Translations: [Hypotension, unspecified] 04-10-2024 Episodic Other circulatory disease (2 sources) Postural orthostatic tachycardia syndrome ; Translations: [Postural orthostatic tachycardia syndrome [POTS]] Onset: 5 Episodic Other circulatory disease (1 source) Hypotension, unspecified; Translations: [Hypotension, unspecified hypotension type] Onset: 5 Episodic Other connective tissue disease (2 sources) Muscle spasm of cervical muscle of neck; Translations: [Other muscle spasm] 01-25-2024 Episodic Other endocrine disorders (2 sources) Hypoadrenalism; Translations: [Unspecified adrenocortical insufficiency] 06-03-2024 Chronic Other female genital disorders (2 sources) Pruritus of vagina; Translations: [Other specified noninflammatory disorders of vagina] Episodic Other female genital disorders (1 source) Vaginal discharge; Translations: [Other specified noninflammatory disorders of vagina] Episodic Other gastrointestinal disorders (18 sources) Ileostomy present; Translations: [Encounter for attention to ileostomy] Onset: 3 04-04-2012 Chronic Other gastrointestinal disorders (7 sources) Celiac disease; Translations: [Celiac disease] 05-29-2023 Chronic Other gastrointestinal disorders (2 sources) Adult form of celiac disease; Translations: [Celiac disease] 05-13-2024 Chronic Other gastrointestinal disorders (3 sources) Celiac disease; Translations: [Celiac disease] Onset: Chronic Other gastrointestinal disorders (1 source) Swelling; Translations: [Other intra-abdominal and pelvic swelling, mass and lump] 11-08-2023 Episodic Other gastrointestinal disorders (2 sources) Mass of uterine adnexa; Translations: [Other specified symptoms and signs involving the digestive system and abdomen] 10-23-2023 Episodic Other inflammatory condition of skin (2 sources) Pruritus of vulva; Translations: [Pruritus vulvae] Episodic Other injuries and conditions due to external causes (1 source) Contusion; Translations: [Other injury of unspecified body region, initial encounter] 05-29-2023 Episodic Other nervous system disorders (2 sources) Numbness and tingling sensation of skin; Translations: [Anesthesia of skin] 01-25-2024 Episodic Other nervous system disorders (2 sources) Carpopedal spasm; Translations: [Tetany] 01-19-2024 Episodic Other nervous system disorders (2 sources) Paresthesia; Translations: [Paresthesia of skin] 01-19-2024 Episodic Other nutritional; endocrine; and metabolic disorders (18 sources) Underweight; Translations: [Underweight] 05-29-2020 Episodic Other nutritional; endocrine; and metabolic disorders (2 sources) Unintentional weight loss; Translations: [Abnormal weight loss] 05-13-2024 Episodic Other nutritional; endocrine; and metabolic disorders (4 sources) Weight decreased; Translations: [Abnormal weight loss] 03-03-2024 Episodic Other screening for suspected conditions (not mental disorders or infectious disease) (2 sources) Abnormal electrocardiogram [ECG] [EKG]; Translations: [Encounter for screening for malignant neoplasm of cervix] Onset: 5 Episodic Other skin disorders (1 source) Mass of neck; Translations: [Localized swelling, mass and lump, neck] 03-15-2020 Episodic Other upper respiratory infections (14 sources) Acute pharyngitis; Translations: [Acute pharyngitis, unspecified] Onset: 5 03-31-2024 Episodic Ovarian cyst (12 sources) Cyst of left ovary; Translations: [Unspecified ovarian cyst, left side] Onset: 6 Resolved: 9 11-08-2023 Episodic Regional enteritis and ulcerative colitis (20 sources) Crohn's disease of small intestine with unspecified complications; Translations: [Crohn's disease of small AND large intestines] Onset: 1 Resolved: 3 Chronic Residual codes; unclassified (1 source) Procedure not done; Translations: [Procedure and treatment not carried out, unspecified reason] 03-06-2024 Episodic Unclassified (1 source) Unknown / UNK(Unknown) Onset: 8 Unclassified (2 sources) R53.83 - Other fatigue,I95.2 - Hypotension due to drugs,G90.A - Postural orthostatic tachycardia syndrome [POTS],R20.0 - Anesthesia of skin,R20.2 - Paresthesia of skin Unclassified (1 source) Acidosis, unspecified; Translations: [Acidosis, unspecified] Onset: 5 Unclassified (1 source) Cough, unspecified; Translations: [Cough, unspecified] Onset: 4 Urinary tract infections (7 sources) Urinary tract infectious disease; Translations: [Urinary tract infection, site not specified] Onset: 7 Resolved: 9 03-11-2019 Episodic Past or Other Problems Problem Classification Problem Date Documented Da te Episodic/Chronic Abdominal pain (12 sources) Abdominal pain; Translations: [Unspecified abdominal pain] Onset: 06-06-2013 Resolved: 03-11-2019 03-07-2021 Episodic Anal and rectal conditions (6 sources) Perianal abscess; Translations: [Anal abscess] Onset: 09-04-2011 Resolved: 04-24-2016 04-24-2016 Episodic Biliary tract disease (6 sources) Cholelithiasis AND cholecystitis without obstruction; Translations: [Calculus of gallbladder with chronic cholecystitis without obstruction] Onset: 04-14-2016 Resolved: 03-11-2019 03-11-2019 Episodic Cancer of thyroid (3 sources) History of malignant neoplasm of thyroid; Translations: [Personal history of malignant neoplasm of thyroid] Onset: 04-03-2024 03-26-2024 Episodic Cardiac dysrhythmias (19 sources) Tachycardia; Translations: [Tachycardia, unspecified] Onset: 06-30-2014 Resolved: 04-24-2016 03-07-2021 Episodic Complications of surgical procedures or medical care (1 source) Hypotension due to drugs; Translations: [Hypotension due to drugs] Onset: 04-10-2024 Episodic Deficiency and other anemia (6 sources) Anemia; Translations: [Anemia, unspecified] Resolved: 04-24-2016 03-07-2021 Episodic Diseases of white blood cells (6 sources) Leukocytosis; Translations: [Elevated white blood cell count, unspecified] Onset: 06-06-2013 Resolved: 04-24-2016 03-07-2021 Chronic Malaise and fatigue (3 sources) Fatigue; Translations: [Other fatigue] Onset: 04-14-2024 03-21-2024 Episodic Nausea and vomiting (3 sources) Nausea; Translations: [Nausea] Onset: 11-01-2023 10-25-2023 Episodic Other female genital disorders (6 sources) Postcoital bleeding; Translations: [Postcoital and contact bleeding] Onset: 06-09-2015 Resolved: 09-14-2016 09-14-2016 Chronic Other female genital disorders (6 sources) Vaginal bleeding; Translations: [Postcoital and contact bleeding] Onset: 11-02-2016 Resolved: 03-11-2019 03-11-2019 Chronic Other fractures (18 sources) Compression fracture of vertebral column; Translations: [Collapsed vertebra, not elsewhere classified, site unspecified, initial encounter for fracture] Onset: 05-14-2012 Episodic Other gastrointestinal disorders (1 source) Other specified symptoms and signs involving the digestive system and abdomen; Translations: [Other specified symptoms and signs involving the digestive system and abdomen] Onset: 11-13-2023 Episodic Other nervous system disorders (6 sources) Postoperative pain ; Translations: [Other acute postprocedural pain] Onset: 06-30-2014 Resolved: 04-24-2016 03-07-2021 Episodic Other nervous system disorders (1 source) Anesthesia of skin; Translations: [Anesthesia of skin] Onset: 01-31-2024 Episodic Phlebitis; thrombophlebitis and thromboembolism (6 sources) Deep venous thrombosis; Translations: [Acute embolism and thrombosis of unspecified deep veins of unspecified lower extremity] Onset: 07-16-2013 Resolved: 04-24-2016 03-07-2021 Episodic Spondylosis; intervertebral disc disorders; other back problems (6 sources) Backache; Translations: [Dorsalgia, unspecified] Onset: 05-15-2012 Resolved: 04-24-2016 03-07-2021 Episodic Thyroid disorders (5 sources) Non-toxic uninodular goiter; Translations: [Nontoxic single thyroid nodule] Onset: 04-29-2020 Resolved: 08-05-2020 08-05-2020 Chronic Unclassified (6 sources) SUMMARY Onset: 05-15-2012 Resolved: 04-24-2016 03-07-2021 Results Test Name Value Interpretation Reference Range Facility CBC panel Auto (Bld)on 07-16 Erythrocyte distribution width (RBC) [Ratio] 14.2 % Normal 11.5-15.0 [facility] Comment on above: Order Comment: Kelly mcdaniel Type: BLOOD SPECIMEN Ordering Facility: [facility] Address: [address] [place] [address] Performed By: #### 1 4196-0, 41772-2 #### [facility] CLIA [id number] [address] [place] [address] [place] Hematocrit (Bld) [Volume fraction] 30.3 % Low 36.0-46.0 [facility] Comment on above: Order Comment: Kelly mcdaniel Type: BLOOD SPECIMEN Ordering Facility: [facility] Address: [address] [place] [address] Performed By: #### 1 4196-0, 39426-4 #### [facility] CLIA [id number] [address] [place] [address] [place] Hemoglobin (Bld) [Mass/Vol] 10.0 g/dL Low 11.5-15.5 [facility] Comment on above: Order Comment: Speci men Type: BLOOD SPECIMEN Ordering Facility: [facility] Address: [address] [place] [address] Performed By: #### 1 4196-0, 41507-9 #### [facility] CLIA [id number] [address] [place] [address] [place] MCH (RBC) [Entitic mass] 29.0 pg Normal 26.0-34.0 [facility] Comment on above: Order Comment: Speci men Type: BLOOD SPECIMEN Ordering Facility: [facility] Address: [address] [place] [address] Performed By: #### 1 4196-0, 07922-9 #### [facility] CLIA [id number] [address] [place] [address] [place] MCHC (RBC) [Mass/Vol] 33.0 g/dL Normal 30.5-36.0 [facility] Comment on above: Order Comment: Speci men Type: BLOOD SPECIMEN Ordering Facility: [facility] Address: [address] [place] [address] Performed By: #### 1 4196-0, 61021-4 #### [facility] CLIA [id number] [address] [place] [address] [place] MCV (RBC) [Entitic vol] 87.8 fL Normal 80.0-100.0 [facility] Comment on above: Order Comment: Speci men Type: BLOOD SPECIMEN Ordering Facility: [facility] Address: [address] [place] [address] Performed By: #### 1 4196-0, 57125-7 #### [facility] CLIA [id number] [address] [place] [address] [place] Nucleated RBC (Bld) [#/Vol] 10*3/uL Normal <0.01 [facility] Comment on above: Order Comment: Speci men Type: BLOOD SPECIMEN Ordering Facility: [facility] Address: [address] [place] [address] Performed By: #### 1 4196-0, 02354-2 #### [facility] CLIA [id number] [address] [place] [address] [place] Platelet mean volume (Bld) [Entitic vol] 9.7 fL Normal 9.0-12.7 [facility] Comment on above: Order Comment: Speci men Type: BLOOD SPECIMEN Ordering Facility: [facility] Address: [address] [place] [address] Performed By: #### 1 4196-0, 55933-3 #### [facility] CLIA [id number] [address] [place] [address] [place] Platelets (Bld) [#/Vol] 241 10*3/uL Normal 150-400 [facility] Comment on above: Order Comment: Speci men Type: BLOOD SPECIMEN Ordering Facility: [facility] Address: [address] [place] [address] Performed By: #### 1 4196-0, 53271-0 #### [facility] CLIA [id number] [address] [place] [address] [place] RBC (Bld) [#/Vol] 3.45 10*6/uL Low 3.90-5.20 [facility] Comment on above: Order Comment: Speci men Type: BLOOD SPECIMEN Ordering Facility: [facility] Address: [address] [place] [address] Performed By: #### 1 4196-0, 72785-0 #### [facility] CLIA [id number] [address] [place] [address] [place] WBC (Bld) [#/Vol] 5.55 10*3/uL Normal 3.70-11.00 [facility] Comment on above: Order Comment: Kelly mcdaniel Type: BLOOD SPECIMEN Ordering Facility: [facility] Address: [address] [place] [address] Performed By: #### 1 4196-0, 09020-6 #### [facility] CLIA [id number] [address] [place] [address] [place] CELIAC SCREENon 07-16-2024 GLIAD DEAMIDATED IGA QUAL Negative Normal Negative, Test not Indicated [facility] Comment on above: Order Comment: Kelly mcdaniel Type: BLOOD SPECIMEN Ordering Facility: [facility] Address: [address] [place] [address] Result Comment: This is used as an aid in diagnosis of celiac disease. Clinical correlation is required. The following results were obtained with an [employer]A Lite Gliadin IgA ADIEL Gliadin. Gliadin IgA values obtained with different manufacturers' assay methods may not be used interchangeably. The magnitude of the reported IgA levels cannot be correlated to an endpoint titer. Performed By: #### 1 4196-0, 08013-5 #### [facility] CLIA [id number] [address] [place] [address] [place] Gliadin peptide IgA Qn (S) 14 Units Normal <20 [facility] Comment on above: Order Comment: Kelly mcdaniel Type: BLOOD SPECIMEN Ordering Facility: [facility] Address: [address] [place] [address] Performed By: #### 1 4196-0, 00118-6 #### [facility] CLIA [id number] [address] [place] [address] [place] INTERPRETATION No serological evide nce of celiac disease, however, if celiac disease is clinically suspected and patient is not on gluten-free diet, histological diagnosis may be considered. HLA testing may help with risk assessment. Normal [facility] Comment on above: Order Comment: Kelly mcdaniel Type: BLOOD SPECIMEN Ordering Facility: [facility] Address: [address] [place] [address] Performed By: #### 1 4196-0, 52618-0 #### [facility] CLIA [id number] [address] [place] [address] [place] TRANSGLUTAMINASE IGA ABS INTERPRETATION Negative Normal Negative [facility] Comment on above: Order Comment: Kelly mcdaniel Type: BLOOD SPECIMEN Ordering Facility: [facility] Address: [address] [place] [address] Result Comment: The following results were obtained with [employer] R h-tTG IgA ADIEL.???R h-tTG IgA values obtained with different manufacturers' assay methods may not be used interchangeably. The magnitude of the reported IgA levels cannot be corelated to an endpoint???concentration. This is used as an aid in diagnosis of celiac disease. Clinical correlation is required. Performed By: #### 1 4196-0, 82171-3 #### [facility] CLIA [id number] [address] [place] [address] [place] tTG IgA Qn (S) <2 Normal <4 [facility] Comment on above: Order Comment: Kelly mcdaniel Type: BLOOD SPECIMEN Ordering Facility: [facility] Address: [address] [place] [address] Performed By: #### 1 4196-0, 28596-2 #### [facility] CLIA [id number] [address] [place] [address] [place] CNDSon 07-16-2024 CNDS HNO ID: [id number] Author: NÉSTOR GRECO MD Service: General Internal Medicine Author Type: Physician Type: Discharge Summary Filed: 07/16/2024 21:58 Note Text: DISCHARGE SUMMARY PATIENT NAME: Philippe Rg ADMISSION DATE: 07/15/2024 DISCHARGE DATE: 07/16/2024 ATTENDING PHYSICIAN: Néstor Greco MD Code Status: Full Code Highest Readmission Risk Score: 42 The 30 day readmissions risk score is derived from an internally validated risk model which evaluates patient level characteristics, utilization history, medication orders and lab results up until the day of discharge. Patients with a score of 39 or above are considered highest risk for readmission. Specific patient level drivers will be listed at the bottom of the summary. CONSULTING TEAMS DURING HOSPITALIZATION: Gastroenterology: Treatment Team: Attending Provider: Néstor Greco MD Primary Service: JHONNY Leon REASON FOR HOSPITALIZATION: dysuria FINAL DIAGNOSIS: ELPIDIO Active Hospital Problems Diagnosis POA Acute kidney injury Yes Severe protein-calorie malnutrition (HCC) Yes Hypotension Unknown S/P proctocolectomy Unknown H/O ileostomy Unknown Hypothyroidism Unknown Celiac disease (HCC) Unknown POTS (postural orthostatic tachycardia syndrome) Yes Resolved Hospital Problems Diagnosis POA Urinary tract infection without hematuria Yes OPERATIONS DURING HOSPITALIZATION: None PROCEDURES DURING HOSPITALIZATION: No procedures performed HOSPITAL COURSE: Philippe Rg is a 38-year-old female with past medical history of Crohn's disease s/p 4 bowel resections resulting in total proctocolectomy with ileostomy (colonic, perianal, ilea, and jejunal involvement with fistulizing disease), celiac disease, papillary thyroid carcinoma s/p partial thyroidectomy 05/2020 with post-surgical hypothyroidism, and POTS who presented to the [facility] ED for three day history of dysuria with labs concerning with UTI c/b ELPIDIO. In the ED here, she was hypotensive and borderline tachycardiac. Her CMP was notable for Cr 3.5 (1.05 1 year ago) with hyponatremia and UA was notable for 2+ protein, 1+ LE, 6-10 WBCs, and few bacteria. She was given 1L NS and started on maintenance fluids and ceftriaxone 1g. On the floor, she was continued on ceftriaxone 1g daily. She was given a 1L bolus of LR and maintenance fluids as needed. She was also started on imodium for diarrhea in the setting of Crohn's disease. Nutrition was consulted with the history of weight loss and malnutrition and recommended continuing current regular, gluten-free diet along with Ensure Clear supplements as needed. Gastroenterology was consulted given her history of Crohn's with high ostomy output and no active treatment. After fluid repletion, creatinine improved to 1.26. During her hospital stay, she developed a yeast infection from antibiotics, for which we started fluconazole. Plan for discharge to home with instructions to drink half a gallon of fluids daily, increase calcium intake, and follow-up with GI for EGD, ileoscopy, and celiac screening results. Starting 5-day course of fluconazole for yeast infection and loperamide for high ostomy output. Malnutrition Diagnosis supported by Registered Dietitian:Severe Protein-Calorie Malnutrition Based on: Muscle Loss, Insufficient Energy Intake Assessment: I have reviewed the result of the malnutrition assessment and plan and agree Plan: Diet, Supplements, Referral Transitions of Care Critical Issues: SPECIALIST FOLLOW-UP: GI, student loan counselor Plan for discharge to home with instructions to drink half a gallon of fluids daily, increase calcium intake, and follow-up with GI for EGD, ileoscopy, and celiac screening results. Incidental finding of 7.8 x 6.1 x 5.5 cm multilocular left adnexal cyst on kidney/bladder US. LABS AND PROCEDURES PENDING AT DISCHARGE: Test Results Not Yet Available from This Hospitalization: Please Review at Your Follow Up Appointment Order Current Status CALPROTECTIN,FECAL In process CELIAC SCREEN In process CELIAC SCREEN WITH REFLEX In process IMMUNOGLOBULIN A In process INCIDENTAL OR ACTIONABLE FINDING (Last Refresh: 07/16/2024 4:06 PM) Test(s): US KIDNEY/BLADDER ACTIONABLE RESULT: FOLLOW-UP Acuity: Actionable Findings: Female reproductive tract (pelvis, adnexa) Routing code: WH_1 Recommendation: US FEMALE PELVIS NON-OB NON TORSION ([id number]) Time Frame: At the discretion of the clinical team. COMMUNICATION: Results will be communicated with the ordering provider via [facility] staff message or phone message by [facility] within 2 business days of report finalization. PATIENT CONDITION AT DISCHARGE: Stable DISCHARGE DISPOSITION: Home with Self Care Discharge Physical Exam: VITAL SIGNS: BP 92/50 Pulse 72 Temp 36.6 ?C (97.9 ?F) (Oral) Resp 16 Ht 144.8 cm (4' 9.01) Wt 36.1 kg (79 lb 9.4 oz) LMP 06/20/2024 (Exact Date) SpO2 100% BMI (more content not included)... Normal [facility] CONSULTon 07-16-2024 CONSULT HNO ID: [id number] Author: DARIN CORMIER MD Service: Gastroenterology Author Type: Physician Type: Consults Filed: 07/16/2024 17:23 Note Text: Department of Gastroenterology AND Hepatology Initial Consult Note Date of Service: July 16, 2024 Patient: Philippe Rg Medical Record: [id number] Impression: Philippe Rg is a 38 year old visualizing Crohn's disease(status post total proctocolectomy with ileostomy), celiac disease, papillary thyroid carcinoma s/p partial thyroidectomy 05/2020 with post-surgical hypothyroidism, POTS presented as an outside hospital transfer on 07/15 due to concerns for urinary tract infection along with an ELPIDIO. GI has been consulted given history of Crohn's. Extensive surgical history with small residual small bowel length possibly 150cm. Previously failed all 3 TNF alpha inhibitors, Imuran, Stelara and currently off of any medications. Denies change in stoma output though, at [facility](approximately 1 L and off of any antimotility agents) Recommendations: - Continue loperamide 2 mg 4 times daily - Does not appear to be in acute flare. - Please send Celiac Serologies before DC - Would recommend close outpatient GI follow-up. Patient wants to reestablish at [facility]. - Plan for outpatient Upper Endoscopy and ileoscopy to evaluate Crohns status given as she's off of medications as well as biopsies for Celiac Lynnette Salazar PGY-1 Internal Medicine 07/16/2024 [id number] Will discuss with staff Dr Cormier History of Present Illness: Philippe Rg is a 38 year old visualizing Crohn's disease(status post total proctocolectomy with ileostomy), celiac disease, papillary thyroid carcinoma s/p partial thyroidectomy 05/2020 with post-surgical hypothyroidism, POTS presented as an outside hospital transfer on 07/15 due to concerns for urinary tract infection along with an ELPIDIO. GI has been consulted given history of Crohn's and now with high ostomy output? Previously used to follow Dr. Cormier. Last seen in clinic May 2021. Based on the notes. longstanding history of Crohn's disease since the late , affecting multiple gastrointestinal segments including the colon, perianal region, ileum, and jejunum. She has undergone four surgical resections (2003, 2006, 2010, and June 2014), resulting in a proctocolectomy and resections of segments of the ileum and jejunum(She underwent a extended right hemicolectomy and iliectomy in 2003 and then partial colectomy and end ileostomy along with Irasema pouch in 2006. Then she underwentunderwent a laparoscopic small bowel resection with ileorectal anastomoses, high-loop jejunostomy, with her remaining small bowel length about 175 cm on 06/02/2010). In 2011, she developed perianal abscesses in July and labial abscesses in December, followed by peristomal fistulizing complications in 2013, necessitating ex lap, with takedown of enterocutaneous fistula, small bowel resection, abdominal perineal excision of the rectum, debridement of the anal perineal fistula, debridement of subcutaneous abscess cavity around old ileostomy site and creation of end ileostomy, during this procedure 20 cm of small bowel was resected, her ileostomy was shifted from the right abdomen to the left abdomen. Most recently she also underwent lysis of adhesions and open cholecystectomy with cholangiograms in 2016 Previous Medical Treatments: Immunomodulators: Azathioprine (Imuran): Used in the past, possibly in conjunction with Remicade. Anti-TNF Therapies: Remicade (Infliximab): Initially effective, but the patient developed a slow loss of response and infusion reactions.SOB Humira (Adalimumab): Discontinued due to tachycardia. Cimzia (Certolizumab pegol): Discontinued after developing pneumonia and undergoing surgery; reintroduced from February 2011 to August 2011 but stopped due to recurrent symptoms and active rectal inflammation. Interleukin Inhibitors: Stelara (Ustekinumab): Administered from 2012 to 2015 and again from April 2017 to March 2021. The patient experienced clinical improvement but developed progressive side effects, including voice hoarseness and enlarged lymph nodes in the neck after each injection. A lymph node biopsy returned benign results. Currently was following with GI at [facility]. She has been off of any medications since March of this year. Previously was on prednisone which was slowly tapered down to 2.5. No biologic since lara. According to her plan was to repeat an MRE to assess disease activity. Overnight persistently remained hypotensive(outpatient records show low blood pressures at baseline). Saturating on room air. Maintained on LR infusion at 100 mL/h which finished at 7 AM this morning. Yesterday received 1 L LR in the ED. Stoma output not charted. CMV negative, C. difficile negative, expanded stool p (more content not included)... Normal [facility] ECG COMPLETEon 07-16-2024 ECG COMPLETE Ventricular Rate : 6 6 BPM Atrial Rate : 66 BPM P-R Interval : 102 ms QRS Duration : 88 ms Q-T Interval : 414 ms QTC Calculation(Bazett) : 434 ms Calculated P [place] : 68 degrees Calculated R [place] : 63 degrees Calculated T [place] : 42 degrees SINUS RHYTHM WITH SHORT WY LOW VOLTAGE QRS, CONSIDER PULMONARY DISEASE, PERICARDIAL EFFUSION, OR NORMAL VARIANT BORDERLINE ECG Confirmed by SAMMY HERBERT MD ([id number]) on 08/09/2024 5:14:16 PM NAME : PHILIPPE RG PID : [id number] : 1985 Gender : Female Race : ORD : [id number] Procedure Date : Jul 16 2024 11:42:31 Edit Date : Aug 09 2024 17:14:21 Diagnosis: SINUS RHYTHM WITH SHORT WY LOW VOLTAGE QRS, CONSIDER PULMONARY DISEASE, PERICARDIAL EFFUSION, OR NORMAL VARIANT BORDERLINE ECG Confirmed by SAMMY HERBERT MD ([id number]) on 08/09/2024 5:14:16 PM Test Reason : Check QT Location : 84 : H81 [id number] Overread By : SAMMY HERBERT MD Edited By : SAMMY HERBERT MD Referred By : ALBA WOLFE Acquired by : LUKE TRIANA Normal [facility] Ferritin SerPl-mCncon 2024 Ferritin [Mass/Vol] 91.1 ng/mL Normal 14.7-205.1 [facility] Comment on above: Order Comment: Kelly men Type: BLOOD SPECIMEN Ordering Facility: [facility] Address: [address] [place] [address] Performed By: #### 1 4196-0, 33446-1 #### [facility] CLIA [id number] [address] [place] [address] [place] IgA SerPl-mCncon 07-16-2024 IgA [Mass/Vol] 251 mg/dL Normal 70-400 [facility] Comment on above: Order Comment: Kelly men Type: BLOOD SPECIMEN Ordering Facility: [facility] Address: [address] [place] [address] Performed By: #### 1 4196-0, 19975-8 #### [facility] CLIA [id number] [address] [place] [address] [place] Iron and Iron binding capaci ty panelon 07-16-2024 Iron [Mass/Vol] 37 ug/dL Low 41-186 [facility] Comment on above: Order Comment: Speci men Type: BLOOD SPECIMEN Ordering Facility: [facility] Address: [address] [place] [address] Performed By: #### 1 4196-0, 23782-7 #### [facility] CLIA [id number] [address] [place] [address] [place] Iron binding capacity [Mass/Vol] 229 ug/dL Low 232-386 [facility] Comment on above: Order Comment: Speci men Type: BLOOD SPECIMEN Ordering Facility: [facility] Address: [address] [place] [address] Performed By: #### 1 4196-0, 52541-8 #### [facility] CLIA [id number] [address] [place] [address] [place] Iron/TIBC [Molar ratio] 16.2 % Normal 15.0-57.0 [facility] Comment on above: Order Comment: Speci men Type: BLOOD SPECIMEN Ordering Facility: [facility] Address: [address] [place] [address] Performed By: #### 1 4196-0, 61683-4 #### [facility] CLIA [id number] [address] [place] [address] [place] Renal function 2000 panelon 07-16-2024 Albumin [Mass/Vol] 2.8 g/dL Low 3.9-4.9 [facility] Comment on above: Order Comment: Speci men Type: BLOOD SPECIMEN Ordering Facility: [facility] Address: [address] [place] [address] Performed By: #### 1 4196-0, 90385-5 #### [facility] CLIA [id number] [address] [place] [address] [place] Anion gap [Moles/Vol] 10 mmol/L Normal 8-15 [facility] Comment on above: Order Comment: Speci men Type: BLOOD SPECIMEN Ordering Facility: [facility] Address: [address] [place] [address] Performed By: #### 1 4196-0, 91987-4 #### [facility] CLIA [id number] [address] [place] [address] [place] Calcium [Mass/Vol] 8.6 mg/dL Normal 8.5-10.2 [facility] Comment on above: Order Comment: Speci men Type: BLOOD SPECIMEN Ordering Facility: [facility] Address: [address] [place] [address] Performed By: #### 1 4196-0, 21927-4 #### [facility] CLIA [id number] [address] [place] [address] [place] Chloride [Moles/Vol] 107 mmol/L Normal 98-107 [facility] Comment on above: Order Comment: Speci men Type: BLOOD SPECIMEN Ordering Facility: [facility] Address: [address] [place] [address] Performed By: #### 1 4196-0, 39653-4 #### [facility] CLIA [id number] [address] [place], [place] [address] [place] CO2 [Moles/Vol] 22 mmol/L Normal 22-30 [facility] Comment on above: Order Comment: Speci men Type: BLOOD SPECIMEN Ordering Facility: [facility] Address: [address] [place], [place] [address] Performed By: #### 1 4196-0, 37031-0 #### [facility] CLIA [id number] [address] [place] [address] [place] Creatinine [Mass/Vol] 1.26 mg/dL High 0.58-0.96 [facility] Comment on above: Order Comment: Kelly mcdaniel Type: BLOOD SPECIMEN Ordering Facility: [facility] Address: [address] [place] [address] Performed By: #### 1 4196-0, 92545-3 #### [facility] CLIA [id number] [address] [place] [address] [place] [facility] Creatinine and Glomerular filtration rate.predicted panel (S/P/Bld) 57 mL/min/1.73m??? Low >=60 [facility] Comment on above: Order Comment: Kelly mcdaniel Type: BLOOD SPECIMEN Ordering Facility: [facility] Address: [address] [place] [address] Result Comment: Cassy mated Glomerular Filtration Rate (eGFR) is calculated using the 2020 CKD-EPI creatinine equation. This equation utilizes serum creatinine, sex, and age as parameters. The creatinine assay has traceable calibration to isotope dilution-mass spectrometry. Refer to KDIGO guidelines for clinical interpretation. In patients with unstable renal function, e.g. those with acute kidney injury, the eGFR may not accurately reflect actual GFR. Performed By: #### 1 4196-0, 91688-6 #### [facility] CLIA [id number] [address] [place] [address] [place] Glucose [Mass/Vol] 85 mg/dL Normal 74-99 [facility] Comment on above: Order Comment: Kelly mcdaniel Type: BLOOD SPECIMEN Ordering Facility: [facility] Address: [address] [place] [address] Result Comment: The [place] [employer] (ADA) provides guidance for cutoff values for fasting glucose and random glucose. The ADA defines fasting as no caloric intake for at least 8 hours. Fasting plasma glucose results between 100 to 125 mg/dL indicate increased risk for diabetes (prediabetes). Fasting plasma glucose results greater than or equal to 126 mg/dL meet the criteria for diagnosis of diabetes. In the absence of unequivocal hyperglycemia, results should be confirmed by repeat testing. In a patient with classic symptoms of hyperglycemia or hyperglycemic crisis, random plasma glucose results greater than or equal to 200 mg/dL meet the criteria for diagnosis of diabetes. Reference: Standards of Medical Care in Diabetes 2016, [place] [employer]. Diabetes Care. 2016.39(Suppl 1). Performed By: #### 1 4196-0, 89468-2 #### [facility] CLIA [id number] [address] [place] [address] [place] Phosphate [Mass/Vol] 1.5 mg/dL Low 2.7-4.8 [facility] Comment on above: Order Comment: Nadiai men Type: BLOOD SPECIMEN Ordering Facility: [facility] Address: [address] [place] [address] Performed By: #### 1 4196-0, 35104-2 #### [facility] CLIA [id number] [address] [place] [address] [place] Potassium [Moles/Vol] 4.5 mmol/L Normal 3.7-5.1 [facility] Comment on above: Order Comment: Nadiai men Type: BLOOD SPECIMEN Ordering Facility: [facility] Address: [address] [place] [address] Performed By: #### 1 4196-0, 44885-6 #### [facility] CLIA [id number] [address] [place] [address] [place] Sodium [Moles/Vol] 139 mmol/L Normal 136-144 [facility] Comment on above: Order Comment: Speci men Type: BLOOD SPECIMEN Ordering Facility: [facility] Address: [address] [place] [address] Performed By: #### 1 4196-0, 52970-6 #### [facility] CLIA [id number] [address] [place], [place] [address] [place] Urea nitrogen [Mass/Vol] 11 mg/dL Normal 7-21 [facility] Comment on above: Order Comment: Speci men Type: BLOOD SPECIMEN Ordering Facility: [facility] Address: [address] [place] [address] Performed By: #### 1 4196-0, 72913-5 #### [facility] CLIA [id number] [address] [place] [address] [place] Retics #on 07-16-2024 Reticulocytes (Bld) [#/Vol] 0.76982 10*3/uL Normal 0.018-0.10 0 [facility] Comment on above: Order Comment: Speci men Type: BLOOD SPECIMEN Ordering Facility: [facility] Address: [address] [place] [address] Performed By: #### 1 4196-0, 61367-8 #### [facility] CLIA [id number] [address] [place] [address] [place] Reticulocytes (Bld) [#/Vol]o n 07-16-2024 Reticulocytes/100 RBC (Bld) 2.1 % High 0.4-2.0 [facility] Comment on above: Order Comment: Speci men Type: BLOOD SPECIMEN Ordering Facility: [facility] Address: [address] [place] [address] Performed By: #### 1 4196-0, 31894-1 #### [facility] CLIA [id number] [address] [place] [address] [place] C diff Tox gens Stl Ql ISAK+p robeon 07-15-2024 C. difficile toxin genes ISAK+probe Ql (Stl) Negative Normal Negative for C. difficile toxin by PCR [facility] Comment on above: Order Comment: Speci men Type: BLOOD SPECIMEN Ordering Facility: [facility] Address: [address] [place] [address] Performed By: #### 1 4196-0, 10702-3 #### [facility] CLIA [id number] [address] [place] [address] [place] CBC panel Auto (Bld)on 07-15 Erythrocyte distribution width (RBC) [Ratio] 14.1 % Normal 11.5-15.0 [facility] Comment on above: Order Comment: Speci men Type: BLOOD SPECIMEN Ordering Facility: [facility] Address: [address] [place] [address] Performed By: #### 5 8410-2 #### [facility] CLIA [id number] [address] [place] [address] [place] Hematocrit (Bld) [Volume fraction] 36.7 % Normal 36.0-46.0 [facility] Comment on above: Order Comment: Speci men Type: BLOOD SPECIMEN Ordering Facility: [facility] Address: [address] [place] [address] Performed By: #### 5 8410-2 #### [facility] CLIA [id number] [address] [place] [address] [place] Hemoglobin (Bld) [Mass/Vol] 12.4 g/dL Normal 11.5-15.5 [facility] Comment on above: Order Comment: Speci men Type: BLOOD SPECIMEN Ordering Facility: [facility] Address: [address] [place] [address] Performed By: #### 5 8410-2 #### [facility] CLIA [id number] [address] [place] [address] [place] MCH (RBC) [Entitic mass] 28.8 pg Normal 26.0-34.0 [facility] Comment on above: Order Comment: Speci men Type: BLOOD SPECIMEN Ordering Facility: [facility] Address: [address] [place] [address] Performed By: #### 5 8410-2 #### [facility] CLIA [id number] [address] [place] [address] [place] MCHC (RBC) [Mass/Vol] 33.8 g/dL Normal 30.5-36.0 [facility] Comment on above: Order Comment: Speci men Type: BLOOD SPECIMEN Ordering Facility: [facility] Address: [address] [place] [address] Performed By: #### 5 8410-2 #### [facility] CLIA [id number] [address] [place] [address] [place] MCV (RBC) [Entitic vol] 85.3 fL Normal 80.0-100.0 [facility] Comment on above: Order Comment: Speci men Type: BLOOD SPECIMEN Ordering Facility: [facility] Address: [address] [place] [address] Performed By: #### 5 8410-2 #### [facility] CLIA [id number] [address] [place] [address] [place] Nucleated RBC (Bld) [#/Vol] 10*3/uL Normal <0.01 [facility] Comment on above: Order Comment: Speci men Type: BLOOD SPECIMEN Ordering Facility: [facility] Address: [address] [place] [address] Performed By: #### 5 8410-2 #### [facility] CLIA [id number] [address] [place] [address] [place] Platelet mean volume (Bld) [Entitic vol] 9.6 fL Normal 9.0-12.7 [facility] Comment on above: Order Comment: Speci men Type: BLOOD SPECIMEN Ordering Facility: [facility] Address: [address] [place] [address] Performed By: #### 5 8410-2 #### [facility] CLIA [id number] [address] [place] [address] [place] Platelets (Bld) [#/Vol] 324 10*3/uL Normal 150-400 [facility] Comment on above: Order Comment: Speci men Type: BLOOD SPECIMEN Ordering Facility: [facility] Address: [address] [place] [address] Performed By: #### 5 8410-2 #### [facility] CLIA [id number] [address] [place] [address] [place] RBC (Bld) [#/Vol] 4.30 10*6/uL Normal 3.90-5.20 [facility] Comment on above: Order Comment: Speci men Type: BLOOD SPECIMEN Ordering Facility: [facility] Address: [address] [place] [address] Performed By: #### 5 8410-2 #### [facility] CLIA [id number] [address] [place] [address] [place] WBC (Bld) [#/Vol] 7.18 10*3/uL Normal 3.70-11.00 [facility] Comment on above: Order Comment: Speci men Type: BLOOD SPECIMEN Ordering Facility: [facility] Address: [address] [place] [address] Performed By: #### 5 8410-2 #### [facility] CLIA [id number] [address] [place] [address] [place] CYTOMEGALOVIRUS (CMV) DNA, Q UANTITATIVE PCR, PLASMAon 07-15-2024 CMV DNA ISAK+probe Qn (P) Not detected Normal Not Detected [facility] Comment on above: Order Comment: Speci men Type: BLOOD SPECIMEN Ordering Facility: [facility] Address: [address] [place] [address] Performed By: #### 1 4196-0, 10693-7 #### [facility] CLIA [id number] [address] [place] [address] [place] Calprotectin (Stl) [Mass/Mas s]on 07-15-2024 CALPROTECTIN, FECAL QUANTITATIVE 78.1 ug/g High <50 [facility] Comment on above: Order Comment: Speci men Type: BLOOD SPECIMEN Ordering Facility: [facility] Address: [address] [place] [address] Performed By: #### 1 4196-0, 55540-7 #### [facility] CLIA [id number] [address] [place] [address] [place] Gastrointestinal pathogens p carlos ISAK+probe (Stl)on 07-15-2024 ADENOVIRUS F 40/41 DNA Not detected Normal Not Detected [facility] Comment on above: Order Comment: Speci men Type: BLOOD SPECIMEN Ordering Facility: [facility] Address: [address] [place] [address] Performed By: #### 1 4196-0, 83975-4 #### [facility] CLIA [id number] [address] [place] [address] [place] ASTROVIRUS RNA Not detected Normal Not Detected [facility] Comment on above: Order Comment: Speci men Type: BLOOD SPECIMEN Ordering Facility: [facility] Address: [address] [place] [address] Performed By: #### 1 4196-0, 98230-7 #### [facility] CLIA [id number] [address] [place] [address] [place] C. cayetanensis DNA ISAK+probe Ql (Unsp spec) Not detected Normal Not Detected [facility] Comment on above: Order Comment: Speci men Type: BLOOD SPECIMEN Ordering Facility: [facility] Address: [address] [place] [address] Performed By: #### 1 4196-0, 60193-7 #### [facility] CLIA [id number] [address] [place] [address] [place] Campylobacter sp DNA.diarrheagenic ISAK+probe Ql (Stl) Not detected Normal Not Detected [facility] Comment on above: Order Comment: Speci men Type: BLOOD SPECIMEN Ordering Facility: [facility] Address: [address] [place] [address] Performed By: #### 1 4196-0, 44722-5 #### [facility] CLIA [id number] [address] [place] [address] [place] Cryptosporidium sp DNA ISAK+probe Ql (Unsp spec) Not detected Normal Not Detected [facility] Comment on above: Order Comment: Speci men Type: BLOOD SPECIMEN Ordering Facility: [facility] Address: [address] [place] [address] Performed By: #### 1 4196-0, 88615-2 #### [facility] CLIA [id number] [address] [place] [address] [place] E. coli O157:H7 DNA ISAK+probe Ql (Unsp spec) Not applicable Normal Not detected [facility] Comment on above: Order Comment: Speci men Type: BLOOD SPECIMEN Ordering Facility: [facility] Address: [address] [place] [address] Performed By: #### 1 4196-0, 33385-5 #### [facility] CLIA [id number] [address] [place] [address] [place] E. coli stx1+stx2 genes ISAK+probe Ql (Stl) Not detected Normal Not Detected [facility] Comment on above: Order Comment: Speci men Type: BLOOD SPECIMEN Ordering Facility: [facility] Address: [address] [place] [address] Performed By: #### 1 4196-0, 11883-1 #### [facility] CLIA [id number] [address] [place] [address] [place] E. histolytica DNA ISAK+probe Ql (Unsp spec) Not detected Normal Not Detected [facility] Comment on above: Order Comment: Speci men Type: BLOOD SPECIMEN Ordering Facility: [facility] Address: [address] [place] [address] Performed By: #### 1 4196-0, 15135-9 #### [facility] CLIA [id number] [address] [place] [address] [place] ENTEROAGGREGATIVE E. COLI (EAEC) DNA Not detected Normal Not Detected [facility] Comment on above: Order Comment: Speci men Type: BLOOD SPECIMEN Ordering Facility: [facility] Address: [address] [place] [address] Performed By: #### 1 4196-0, 67734-4 #### [facility] CLIA [id number] [address] [place] [address] [place] ENTEROPATHOGENIC E. COLI (EPEC) DNA Not detected Normal Not detected [facility] Comment on above: Order Comment: Speci men Type: BLOOD SPECIMEN Ordering Facility: [facility] Address: [address] [place] [address] Performed By: #### 1 4196-0, 22008-9 #### [facility] CLIA [id number] [address] [place] [address] [place] ENTEROTOXIGENIC E. COLI (ETEC) DNA Not detected Normal Not Detected [facility] Comment on above: Order Comment: Speci men Type: BLOOD SPECIMEN Ordering Facility: [facility] Address: [address] [place] [address] Performed By: #### 1 4196-0, 38782-6 #### [facility] CLIA [id number] [address] [place] [address] [place] G. lamblia DNA ISAK+probe Ql (Unsp spec) Not detected Normal Not Detected [facility] Comment on above: Order Comment: Speci men Type: BLOOD SPECIMEN Ordering Facility: [facility] Address: [address] [place] [address] Performed By: #### 1 4196-0, 36997-5 #### [facility] CLIA [id number] [address] [place] [address] [place] NOROVIRUS GI/GII RNA Not detected Normal Not Detected [facility] Comment on above: Order Comment: Speci men Type: BLOOD SPECIMEN Ordering Facility: [facility] Address: [address] [place] [address] Performed By: #### 1 4196-0, 20183-9 #### [facility] CLIA [id number] [address] [place] [address] [place] PLESIOMONAS SHIGELLOIDES DNA Not detected Normal Not Detected [facility] Comment on above: Order Comment: Speci men Type: BLOOD SPECIMEN Ordering Facility: [facility] Address: [address] [place] [address] Performed By: #### 1 4196-0, 66988-8 #### [facility] CLIA [id number] [address] [place] [address] [place] ROTAVIRUS A RNA Not detected Normal Not Detected [facility] Comment on above: Order Comment: Speci men Type: BLOOD SPECIMEN Ordering Facility: [facility] Address: [address] [place] [address] Performed By: #### 1 4196-0, 06228-4 #### [facility] CLIA [id number] [address] [place] [address] [place] Salmonella sp DNA ISAK+probe Ql (Unsp spec) Not detected Normal Not Detected [facility] Comment on above: Order Comment: Speci men Type: BLOOD SPECIMEN Ordering Facility: [facility] Address: [address] [place] [address] Performed By: #### 1 4196-0, 46416-7 #### [facility] CLIA [id number] [address] [place] [address] [place] SAPOVIRUS (GENOGROUPS I, II, IV, V) RNA Not detected Normal Not Detected [facility] Comment on above: Order Comment: Speci men Type: BLOOD SPECIMEN Ordering Facility: [facility] Address: [address] [place] [address] Performed By: #### 1 4196-0, 82232-0 #### [facility] CLIA [id number] [address] [place] Shigella species+EIEC invasion plasmid antigen H ipaH gene ISAK+probe Ql (Stl) Not detected Normal Not Detected [facility] Comment on above: Order Comment: Speci men Type: BLOOD SPECIMEN Ordering Facility: [facility] Address: [address] [place] [address] Performed By: #### 1 4196-0, 50273-9 #### [facility] CLIA [id number] [address] [place] [address] [place] V. cholerae DNA ISAK+probe Ql (Unsp spec) Not detected Normal Not Detected [facility] Comment on above: Order Comment: Speci men Type: BLOOD SPECIMEN Ordering Facility: [facility] Address: [address] [place] [address] Performed By: #### 1 4196-0, 57252-6 #### [facility] CLIA [id number] [address] [place] [address] [place] Vibrio sp DNA ISAK+probe Nom (Unsp spec) Not detected Normal Not Detected [facility] Comment on above: Order Comment: Speci men Type: BLOOD SPECIMEN Ordering Facility: [facility] Address: [address] [place] [address] Performed By: #### 1 4196-0, 12255-9 #### [facility] CLIA [id number] [address] [place] [address] [place] Yersinia sp DNA ISAK+probe Nom (Unsp spec) Not detected Normal Not Detected [facility] Comment on above: Order Comment: Speci men Type: BLOOD SPECIMEN Ordering Facility: [facility] Address: [address] [place] [address] Performed By: #### 1 4196-0, 45528-0 #### [facility] CLIA [id number] [address] [place] [address] [place] HISTORY PHYSICALon 5 HISTORY PHYSICAL HNO ID: [id number] Author: NÉSTOR GRECO MD Service: General Internal Medicine Author Type: Physician Type: H&P Filed: 07/15/2024 22:53 Note Text: DEPARTMENT OF HOSPITAL MEDICINE JHONNY Leon HISTORY AND PHYSICAL EXAM SERVICE DATE: 07/15/2024 SERVICE TIME: 3:06 AM Primary Care Physician: No primary care provider on file. NIGHT AND WEEKEND COVERAGE: MAIN [facility] COVERAGE: Nights: [phone], please page Team Jhonny Leon; overnight/admitting pager [phone] Subjective CHIEF COMPLAINT: ELPIDIO, UTI HPI: This is a 38 year old female who presents with a past medical history of Crohn's disease s/p 4 bowel resections resulting in total proctocolectomy with ileostomy (colonic, perianal, ilea, and jejunal involvement with fistulizing disease), celiac disease, papillary thyroid carcinoma s/p partial thyroidectomy 05/2020 with post-surgical hypothyroidism, POTS who presents as an transfer from OSH admitted for concern of UTI and ELPIDIO. She initially presented to OSH ED for 3 day history of dysuria, generalized weakness, and feeling dehydrated. She had been taking left-over Augmentin for the past 3 days without improvement in symptoms. Denies fever, chills, myalgias, chest pain or shortness of breath. Noticed decreased urine output, and started to get muscle cramps in hands and legs yesterday and developed nausea. Denies hematuria, vomiting, abdominal pain, or changes in her ostomy output. Reports her ostomy output is water at baseline. She reports she has difficulty keeping up with fluids since December given her POTS and ostomy output and has had to often go to the ED for IV fluids. She reports her Crohn's is currently in remission and hasn't been on any medication for the past few months. She was most recently on prednisone which she stopped 4-5 months ago. Reports that her local GI physician wants a repeat MRE that was recently approved by insurance. ED course: - Hypotensive 80/62 and borderline tachycardic. - Lactate 1.28, CBC notable for WBC 13, Hb 15.7, Platelet 451 - CMP notable for Cr 3.5 (1.05 1 year ago), with hyponatremia, and mild AG - UA with 2+ protein, +1 LE, 6-10 WBCs, few bacteria - Given 1L NS + maintenance fluids and started on ceftriaxone 1 g PAST MEDICAL HISTORY Diagnosis Date Anemia Attention to ileostomy (HCC) 04/04/2012 Celiac disease (HCC) Cholelithiasis 03/2016 CRBSI (catheter-related bloodstream infection) 09/07/2010, 08/04/2010 (yeast/GPC, lactobacillus casei) Crohn's disease (HCC) Dx age 12 Dr. Maier-GI Hyponatremia Non-traumatic compression fracture of vertebral column (HCC) 05/14/2012 Nontoxic single thyroid nodule 04/29/2020 Palpitations takes propanolol as needed, when HR >100. None currently -- medicine induced. Thyroid cancer (HCC) Underweight Unspecified nutritional deficiency 10/19/2010 Stop HPN Vitamin D insufficiency PAST SURGICAL HISTORY Procedure Laterality Date CHOLECYSTECTOMY 04/28/2016 COLECTOMY TOTAL WO ANAST 10/30/2003 resection of terminal ileum (had 10 cm of TI disease) and colon from cecum to proximal descending colon w/ end-to-side anastomosis ILEOSTOMY 06/26/2014 MIDLINE INSERTION/CONSULT 07/13/2013 MIDLINE INSERTION/CONSULT 06/29/2014 PAST SURGICAL HISTORY OF 10/24/2003 Open drainage of abdominal abscess PAST SURGICAL HISTORY OF 12/2006 dilation of anal stricture and anal fistulectomy. Colonoscopy showed anal sticture, inflamm in rectum, and tight stricture at 40 cm that could not be traversed PAST SURGICAL HISTORY OF 01/2007 resection of 6 cm of TI (short stricture in this area) and ICA including strictured area of colon; Irasema pouch, end ileostomy PAST SURGICAL HISTORY OF 03/2007 dilation of anorectal stricture PAST SURGICAL HISTORY OF 04/28/2010 EUA, ileoscopy, flex sig and anastamotic dilatation PAST SURGICAL HISTORY OF 06/02/2010 takedown fistula, SBR, partial colectomy with ileosigmoid anastamosis, diverting jejunostomy PAST SURGICAL HISTORY OF 05/2010 Cystoscopy, bilateral ureteral stent insertion PICC LINE INSERT/CONSULT 05/14/2012 THYROIDECTOMY TOTAL/COMPLETE N/A 05/28/2020 Partial FAMILY HISTORY Problem Relation Age of Onset Cancer Maternal Grandfather multiple myeloma Cancer Paternal Grandfather multiple myeloma Colon Cancer Paternal Grandmother 78 other (No uterus cancer) Other Hypertension Father Ovarian cancer No Family History Breast Cancer No Family History Social History Tobacco Use Smoking status: Never Smokeless tobacco: Never Vaping Use Vaping status: Never Used Substance Use Topics Alcohol use: Not Currently Comment: very rarely, none for one year 05/25/20 Drug use: Never Comment: ria matthew for drug/alcohol abuse in the past. PRIOR TO ADMISSION MEDICATIONS: Prior to Admission Medications Prescriptions Last Dose Informant Patient Reported? Taking? Multivitamin capsule Yes No Sig: Take 1 capsule by mouth once daily. (more content not included)... Normal [facility] Magnesium SerPl-mCncon 07-15 Magnesium [Mass/Vol] 1.8 mg/dL Normal 1.7-2.3 [facility] Comment on above: Order Comment: Speci men Type: BLOOD SPECIMEN Ordering Facility: [facility] Address: [address] [place] [address] Performed By: #### 1 4196-0, 97674-9 #### [facility] CLIA [id number] [address] [place] [address] NUTRITIONon 07-15-2024 NUTRITION HNO ID: [id number] Author: DORIE MCCONNELL RD Service: Nutrition Therapy Author Type: Registered Dietitian Type: Nutrition Filed: 07/15/2024 11:21 Note Text: NUTRITION THERAPY INITIAL ASSESSMENT SERVICE DATE: 07/15/2024 SERVICE TIME: Start Time: 1010 Nutrition Assessment: Recommended Malnutrition Diagnosis: Severe Protein-Calorie Malnutrition In the context of: Chronic Illness or Injury Based on: Muscle Loss, Insufficient Energy Intake Nutrition Diagnosis: Problem: Suboptimal protein/energy intake Related to: Chronic illness As evidenced by: Medical condition, Depletion of fat/muscle stores, Low BMI, Intake records, Patient/family self-report Care Plan: Continue current diet (regular, gluten free) Supplements: Ensure Clear Refer to: (outpatient nutrition therapy card (to follow up as desired)) - asked for PFS to see patient in regards to options fitting for her diet (gluten free and avoids artificial sweeteners) Monitor and Evaluation: Meet greater than 75% of estimated needs, Monitor bowel function, Monitor labs, I/Os, vital signs, weight Discharge Recommendations: Diet, Oral Supplements Diet: regular, gluten free or as per primary Oral Supplements: as needed when meeting <75% estimated needs HPI: Per note from Robbie Dick MD on 07/15, HOSPITAL COURSE: past medical history of Crohn's disease s/p 4 bowel resections resulting in total proctocolectomy with ileostomy (colonic, perianal, ilea, and jejunal involvement with fistulizing disease), celiac disease, papillary thyroid carcinoma s/p partial thyroidectomy 05/2020 with post-surgical hypothyroidism, POTS who presented to the OSH ED for three day history of dysuria with labs concerning with UTI c/b ELPIDIO. Intake History: Nutrition Intake Prior to Admission: Less than 75% estimated energy needs greater than or equal to 1 month - reports small, frequent meals - eating less than baseline - patient avoids artificial sweeteners Dosing Weight: 35.8 kg (79 lb) Dosing Weight Type: Current weight Estimated kilocalorie needs: 5300-4407 Calorie Calculation Method: 35-45 kcals/kg Estimated protein needs (grams): 43-54 Grams protein determined by: 1.2 - 1.5 g/kg (monitor renal function) Diet Orders (From admission, onward) Start Ordered 07/15/24 1100 DIET GASTRO INTESTINAL START NOW Question: Gastro Intestinal Answer: GLUTEN CONTROLLED 07/15/24 1047 Anthropometrics: Height: 144.8 cm (4' 9.01) Weight: 36.1 kg (79 lb 9.4 oz) Usual Weight: 36.3 kg (80 lb) Usual Weight Obtained From: Patient Body mass index is 17.22 kg/m?. Weight change percentage over time: -6% x 1 year Weight Change: Not clinically significant weight loss Physical Exam: Subcutaneous fat loss: Subcutaneous Fat Loss Assessed Orbital: Slightly dark circles, somewhat hollow look (Mod) Upper Arm (Triceps): Some depth to pinch, not ample fat (Mod) Thoracic and Lumbar: Depression between ribs very apparent, iliac crest very prominent (Severe) Muscle loss: Muscle Loss Assessed Temporalis: Deep hollowing/scooping, bone structures very defined (Severe) Clavicle: More prominent bone, less prominent muscle (Mod) Acromion: Notable depression, prominent, visible bone (Severe) Interosseous (Hand): Slight depression of muscle (Mod) Quadricep: Depression/line on thigh, kneecap prominent (Severe) Gastrocnemius: Not well-developed muscle (Mod) Potential micronutrient deficiency: Mucous Membranes (gums bleed when brushing) Edema/Ascites: No edema GI Symptoms: Nausea Ostomy Amount: WNL Functional Status: No Change Potential Signs of Inflammation: Leukocytosis, Chronic condition crohns celiac POTS Lines, Drains, and Airways Drain Duration GI/ Feeding 07/14/24 1200 External Facility Gastric Left Abdomen <1 day MNT Billing: $ Initial Assessment: 1 unit Time Spent (mins): 10 SIGNATURE: Dorie Mcconnell RD PATIENT NAME: Philippe Rg DATE: July 15, 2024 TIME: 11:19 AM Normal [facility] Renal function 2000 panelon 07-15-2024 Albumin [Mass/Vol] 3.4 g/dL Low 3.9-4.9 [facility] Comment on above: Order Comment: Speci men Type: BLOOD SPECIMEN Ordering Facility: [facility] Address: [address] [place] [address] Result Comment: Resu lt rechecked. Performed By: #### 1 4196-0, 44588-5 #### [facility] CLIA [id number] [address] [place] [address] [place] Anion gap [Moles/Vol] 13 mmol/L Normal 8-15 [facility] Comment on above: Order Comment: Kelly mcdaniel Type: BLOOD SPECIMEN Ordering Facility: [facility] Address: [address] [place] [address] Performed By: #### 1 4196-0, 71913-0 #### [facility] CLIA [id number] [address] [place] [address] [place] Calcium [Mass/Vol] 8.6 mg/dL Normal 8.5-10.2 [facility] Comment on above: Order Comment: Speci men Type: BLOOD SPECIMEN Ordering Facility: [facility] Address: [address] [place] [address] Performed By: #### 1 4196-0, 82318-8 #### [facility] CLIA [id number] [address] [place] [address] [place] Chloride [Moles/Vol] 100 mmol/L Normal 98-107 [facility] Comment on above: Order Comment: Speci men Type: BLOOD SPECIMEN Ordering Facility: [facility] Address: [address] [place] [address] Performed By: #### 1 4196-0, 27312-6 #### [facility] CLIA [id number] [address] [place] [address] [place] CO2 [Moles/Vol] 21 mmol/L Low 22-30 [facility] Comment on above: Order Comment: Speci men Type: BLOOD SPECIMEN Ordering Facility: [facility] Address: [address] [place] [address] Performed By: #### 1 4196-0, 47598-9 #### [facility] CLIA [id number] [address] [place] [address] [place] Creatinine [Mass/Vol] 1.98 mg/dL High 0.58-0.96 [facility] Comment on above: Order Comment: Speci men Type: BLOOD SPECIMEN Ordering Facility: [facility] Address: [address] [place] [address] Performed By: #### 1 4196-0, 34752-0 #### [facility] CLIA [id number] [address] [place] [address] [place] Creatinine and Glomerular filtration rate.predicted panel (S/P/Bld) 33 mL/min/1.73m??? Low >=60 [facility] Comment on above: Order Comment: Speci men Type: BLOOD SPECIMEN Ordering Facility: [facility] Address: [address] [place] [address] Result Comment: Cassy mated Glomerular Filtration Rate (eGFR) is calculated using the 2020 CKD-EPI creatinine equation. This equation utilizes serum creatinine, sex, and age as parameters. The creatinine assay has traceable calibration to isotope dilution-mass spectrometry. Refer to KDIGO guidelines for clinical interpretation. In patients with unstable renal function, e.g. those with acute kidney injury, the eGFR may not accurately reflect actual GFR. Performed By: #### 1 4196-0, 24058-2 #### [facility] CLIA [id number] [address] [place] [address] [place] Glucose [Mass/Vol] 84 mg/dL Normal 74-99 [facility] Comment on above: Order Comment: Kelly mcdaniel Type: BLOOD SPECIMEN Ordering Facility: [facility] Address: [address] [place] [address] Result Comment: The [place] Diabetes Association (ADA) provides guidance for cutoff values for fasting glucose and random glucose. The ADA defines fasting as no caloric intake for at least 8 hours. Fasting plasma glucose results between 100 to 125 mg/dL indicate increased risk for diabetes (prediabetes). Fasting plasma glucose results greater than or equal to 126 mg/dL meet the criteria for diagnosis of diabetes. In the absence of unequivocal hyperglycemia, results should be confirmed by repeat testing. In a patient with classic symptoms of hyperglycemia or hyperglycemic crisis, random plasma glucose results greater than or equal to 200 mg/dL meet the criteria for diagnosis of diabetes. Reference: Standards of Medical Care in Diabetes 2016, [place] [employer]. Diabetes Care. 2016.39(Suppl 1). Performed By: #### 1 4196-0, 05933-8 #### [facility] CLIA [id number] [address] [place] [address] [place] Phosphate [Mass/Vol] 2.8 mg/dL Normal 2.7-4.8 [facility] Comment on above: Order Comment: Kelly men Type: BLOOD SPECIMEN Ordering Facility: [facility] Address: [address] [place] [address] Performed By: #### 1 4196-0, 20099-6 #### [facility] CLIA [id number] [address] [place] [address] [place] Potassium [Moles/Vol] 3.3 mmol/L Low 3.7-5.1 [facility] Comment on above: Order Comment: Nadiai men Type: BLOOD SPECIMEN Ordering Facility: [facility] Address: [address] [place] [address] Performed By: #### 1 4196-0, 08692-4 #### [facility] CLIA [id number] [address] [place] [address] [place] Sodium [Moles/Vol] 134 mmol/L Low 136-144 [facility] Comment on above: Order Comment: Speci men Type: BLOOD SPECIMEN Ordering Facility: [facility] Address: [address] [place] [address] Performed By: #### 1 4196-0, 78190-6 #### [facility] CLIA [id number] [address] [place] [address] [place] Urea nitrogen [Mass/Vol] 20 mg/dL Normal 7-21 [facility] Comment on above: Order Comment: Speci men Type: BLOOD SPECIMEN Ordering Facility: [facility] Address: [address] [place] [address] Performed By: #### 1 4196-0, 57709-3 #### [facility] CLIA [id number] [address] [place] [address] [place] US KIDNEY/BLADDERon 07-16-19 25 US KIDNEY/BLADDER * * *Final Report* * * DATE OF EXAM: Jul 15 2024 2:50PM [facility] [facility] [place] KIDNEY/BLADDER / PROCEDURE REASON: Kidney failure, acute * * * * Physician Interpretation * * * * EXAMINATION: RENAL ULTRASOUND CLINICAL HISTORY: Acute kidney injury. Recurrent UTI. History of multiple abdominal surgeries TECHNIQUE: Sonography of the kidneys and urinary bladder was performed. Images were obtained and stored in a permanent archive. MQ: UR_1 COMPARISON: Ultrasound 11/09/2023. CT 04/18/2021 RESULT: Right Kidney: -Renal length: 9.0 cm -Parenchyma: Normal parenchymal echogenicity. Normal parenchymal thickness. -Collecting system: Pelvocaliectasis. No danial hydronephrosis. -Calculus: Echogenic foci with twinkle artifact, may reflect nonobstructing calculi. -Lesion: None. Left Kidney: -Renal length: 7.7 cm -Parenchyma: Normal parenchymal echogenicity. Normal parenchymal thickness. -Collecting system: No hydronephrosis. -Calculus: Echogenic foci with twinkle artifact, may reflect nonobstructing calculi. -Lesion: Subcentimeter cortical renal cyst. Bladder: Normal sonographic appearance. Other: Multilocular left adnexal cyst measures 7.8 x 6.1 x 5.5 cm, previously 5.4 x 4.9 x 3.0 cm. IMPRESSION: Right pelvocaliectasis without danial hydronephrosis. Increased size of multiloculated left adnexal cystic lesion, incompletely characterized by transabdominal technique. This can be further characterized by transvaginal ultrasound in the nonemergent, nonurgent setting. Possible bilateral nonobstructing renal calculi. ACTIONABLE RESULT: FOLLOW-UP Acuity: Actionable Findings: Female reproductive tract (pelvis, adnexa) Routing code: WH_1 Recommendation: US FEMALE PELVIS NON-OB NON TORSION ([id number]) Time Frame: At the discretion of the clinical team. COMMUNICATION: Results will be communicated with the ordering provider via [facility] staff message or phone message by [employer] within 2 business days of report finalization. --END OF FINDING-- Casino Floor Walker: RIZWANA Transcribe Date/Time: Jul 15 2024 2:59P Dictated by : LEIGHTON MATIAS MD This examination was interpreted and the report reviewed and electronically signed by: LOTTIE MATHEW MD on Jul 15 2024 3:19PM EST [id number] ACTIONABLE Invalid Interpretation Code [facility] Urinalysis complete panel (U )on 07-15-2024 Bacteria LM.HPF (Urine sed) [#/Area] Negative Normal Negative [facility] Comment on above: Order Comment: Speci men Type: BLOOD SPECIMEN Ordering Facility: [facility] Address: [address] [place] [address] Performed By: #### 1 4196-0, 24724-2 #### [facility] CLIA [id number] [address] [place] [address] [place] [address] [place] Bilirubin Ql (U) Negative Normal Negative [facility] Comment on above: Order Comment: Speci men Type: BLOOD SPECIMEN Ordering Facility: [facility] Address: [address] [place] [address] Performed By: #### 1 4196-0, 75609-1 #### [facility] CLIA [id number] [address] [place] [address] [place] Clarity (Unsp spec) Clear Normal Clear [facility] Comment on above: Order Comment: Speci men Type: BLOOD SPECIMEN Ordering Facility: [facility] Address: [address] [place] [address] Performed By: #### 1 4196-0, 94916-2 #### [facility] CLIA [id number] [address] [place] [address] [place] Color (U) Yellow Normal Yellow [facility] Comment on above: Order Comment: Speci men Type: BLOOD SPECIMEN Ordering Facility: [facility] Address: [address] [place] [address] Performed By: #### 1 4196-0, 33192-7 #### [facility] CLIA [id number] [address] [place] [address] [place] Epithelial cells LM.HPF (Urine sed) [#/Area] None Seen Normal [facility] Comment on above: Order Comment: Speci men Type: BLOOD SPECIMEN Ordering Facility: [facility] Address: [address] [place] [address] Performed By: #### 1 4196-0, 94731-3 #### [facility] CLIA [id number] [address] [place], [place] [id number] [place] Glucose Test strip (U) [Mass/Vol] Negative Normal Negative [facility] Comment on above: Order Comment: Speci men Type: BLOOD SPECIMEN Ordering Facility: [facility] Address: [address] [place] [address] Performed By: #### 1 4196-0, 04756-2 #### [facility] CLIA [id number] [address] [place] [address] [place] Hemoglobin Ql (U) Negative Normal Negative [facility] Comment on above: Order Comment: Speci men Type: BLOOD SPECIMEN Ordering Facility: [facility] Address: [address] [place] [address] Performed By: #### 1 4196-0, 04332-6 #### [facility] CLIA [id number] [address] [place] [place] [address] [place] Hyaline casts (Urine sed) [#/Area] 0 /[LPF] Normal 0 /LPF [facility] Comment on above: Order Comment: Speci men Type: BLOOD SPECIMEN Ordering Facility: [facility] Address: [address] [place] [address] Performed By: #### 1 4196-0, 84765-8 #### [facility] CLIA [id number] [address] [place] [address] [place] Ketones Ql (U) Negative Normal Negative [facility] Comment on above: Order Comment: Speci men Type: BLOOD SPECIMEN Ordering Facility: [facility] Address: [address] [place] [address] Performed By: #### 1 4196-0, 34157-0 #### [facility] CLIA [id number] [address] [place] [address] [place] Leukocyte esterase Test strip Ql (U) Trace Abnormal Negative [facility] Comment on above: Order Comment: Speci men Type: BLOOD SPECIMEN Ordering Facility: [facility] Address: [address] [place] [address] Performed By: #### 1 4196-0, 44042-4 #### [facility] CLIA [id number] [address] [place] [address] [place] Nitrite Ql (U) Negative Normal Negative [facility] Comment on above: Order Comment: Speci men Type: BLOOD SPECIMEN Ordering Facility: [facility] Address: [address] [place] [address] Performed By: #### 1 4196-0, 70595-7 #### [facility] CLIA [id number] [address] [place] [address] [place] pH (U) 6.0 [pH] Normal <8.5 [facility] Comment on above: Order Comment: Speci men Type: BLOOD SPECIMEN Ordering Facility: [facility] Address: [address] [place] [address] Performed By: #### 1 4196-0, 28264-6 #### [facility] CLIA [id number] [address] [place] [address] [place] Protein (U) [Mass/Vol] Negative Normal Negative [facility] Comment on above: Order Comment: Speci men Type: BLOOD SPECIMEN Ordering Facility: [facility] Address: [address] [place] [address] Performed By: #### 1 4196-0, 20160-0 #### [facility] CLIA [id number] [address] [place] [address] [place] RBC LM.HPF (Urine sed) [#/Area] 0-2 /HPF Normal 0-2 /HPF [facility] Comment on above: Order Comment: Speci men Type: BLOOD SPECIMEN Ordering Facility: [facility] Address: [address] [place] [address] Performed By: #### 1 4196-0, 27179-0 #### [facility] CLIA [id number] [address] [place] [address] [place] Specific gravity (U) [Rel density] 1.008 Normal 1.005-1.03 0 [facility] Comment on above: Order Comment: Speci men Type: BLOOD SPECIMEN Ordering Facility: [facility] Address: [address] [place] [address] Performed By: #### 1 4196-0, 83357-5 #### [facility] CLIA [id number] [address] [place] [address] [place] Urobilinogen Ql (U) 0.2 EU/dL Normal 0.2-1.0 EU/dL [facility] Comment on above: Order Comment: Speci men Type: BLOOD SPECIMEN Ordering Facility: [facility] Address: [address] [place] [address] Performed By: #### 1 4196-0, 29066-9 #### [facility] CLIA [id number] [address] [place] [address] [place] WBC LM.HPF (Urine sed) [#/Area] 0-5 /HPF Normal 0-5 /HPF [facility] Comment on above: Order Comment: Speci men Type: BLOOD SPECIMEN Ordering Facility: [facility] Address: [address] [place] [address] Performed By: #### 1 4196-0, 52289-7 #### [facility] CLIA [id number] [address] [place] [address] [place] CBC W Auto Differential pane l (Bld)on 07-14-2024 Basophils (Bld) [#/Vol] 0.07 10*3/uL Normal <0.11 [facility] Comment on above: Order Comment: Speci men Type: BLOOD SPECIMENOrdering Facility: [facility] Address: [address] [place] [address] Performed By: #### 5 7021-8 ####[facility]ORY[facility]IA [id number] [place] [address] [place] Basophils/100 WBC (Bld) 0.5 % Normal [facility] Comment on above: Order Comment: Speci men Type: BLOOD SPECIMENOrdering Facility: [facility] Address: [address] [place] [address] Performed By: #### 5 7021-8 ####[facility] LABORATORYCLIA [id number] [address] Differential cell count method Nom (Bld) Auto Normal [facility] Comment on above: Order Comment: Speci men Type: BLOOD SPECIMENOrdering Facility: [facility] Address: [address] [place] [address] Performed By: #### 5 7021-8 ####[facility]ORYCLIA [id number] [place] [address] [place] Eosinophils (Bld) [#/Vol] 0.12 10*3/uL Normal <0.46 [facility] Comment on above: Order Comment: Speci men Type: BLOOD SPECIMENOrdering Facility: [facility] Address: [address] [place] [address] Performed By: #### 5 7021-8 ####[facility]ORYCLIA [id number] [address] STATES [facility] Eosinophils/100 WBC (Bld) 0.9 % Normal [facility] Comment on above: Order Comment: Speci men Type: BLOOD SPECIMENOrdering Facility: [facility] Address: [address] [place] [address] Performed By: #### 5 7021-8 ####[facility]ATORYCLIA [id number] [address] Erythrocyte distribution width (RBC) [Ratio] 14.1 % Normal 11.5-15.0 [facility] Comment on above: Order Comment: Speci men Type: BLOOD SPECIMENOrdering Facility: [facility] Address: [address] [place] [address] Performed By: #### 5 7021-8 ####[facility] LABORATORYIA [id number] [address] Hematocrit (Bld) [Volume fraction] 45.8 % Normal 36.0-46.0 [facility] Comment on above: Order Comment: Speci men Type: BLOOD SPECIMENOrdering Facility: [facility] Address: [address] [place] [address] Performed By: #### 5 7021-8 ####[facility] LABORATORYCLIA [id number] [place] [address] [place] Hemoglobin (Bld) [Mass/Vol] 15.7 g/dL High 11.5-15.5 [facility] Comment on above: Order Comment: Speci men Type: BLOOD SPECIMENOrdering Facility: [facility] Address: [address] [place] [address] Performed By: #### 5 7021-8 ####[facility] LAB[facility]ATORYCLIA [id number] [place] [address] [place] Immature granulocytes (Bld) [#/Vol] 0.08 10*3/uL Normal <0.10 [facility] Comment on above: Order Comment: Speci men Type: BLOOD SPECIMENOrdering Facility: [facility] Address: [address] [place] [address] Performed By: #### 5 7021-8 ####[facility] LABORATORYIA [id number] [place] [address] [place] Immature granulocytes/100 WBC (Bld) 0.6 % Normal [facility] Comment on above: Order Comment: Speci men Type: BLOOD SPECIMENOrdering Facility: [facility] Address: [address] [place] [address] Performed By: #### 5 7021-8 ####[facility] LABORATORYIA [id number] [place] [address] [place] Lymphocytes (Bld) [#/Vol] 2.10 10*3/uL Normal 1.00-4.00 [facility] Comment on above: Order Comment: Speci men Type: BLOOD SPECIMENOrdering Facility: [facility] Address: [address] [place] [address] Performed By: #### 5 7021-8 ####[facility] LABORATORYCLIA [id number] [place] [address] [place] Lymphocytes/100 WBC (Bld) 15.8 % Normal [facility] Comment on above: Order Comment: Speci men Type: BLOOD SPECIMENOrdering Facility: [facility] Address: [address] [place] [address] Performed By: #### 5 7021-8 ####[facility] LABORATORYCLIA [id number] [address] MCH (RBC) [Entitic mass] 28.9 pg Normal 26.0-34.0 [facility] Comment on above: Order Comment: Speci men Type: BLOOD SPECIMENOrdering Facility: [facility] Address: [address] [place] [address] Performed By: #### 5 7021-8 ####[facility] LABORATORYCLIA [id number] [address] MCHC (RBC) [Mass/Vol] 34.3 g/dL Normal 30.5-36.0 [facility] Comment on above: Order Comment: Speci men Type: BLOOD SPECIMENOrdering Facility: [facility] Address: [address] [place] [address] Performed By: #### 5 7021-8 ####[facility] LABORATORYIA [id number] [address] MCV (RBC) [Entitic vol] 84.2 fL Normal 80.0-100.0 [facility] Comment on above: Order Comment: Speci men Type: BLOOD SPECIMENOrdering Facility: [facility] Address: [address] [place] [address] Performed By: #### 5 7021-8 ####[facility] LABORATORYCLIA [id number] [address] Monocytes (Bld) [#/Vol] 0.95 10*3/uL High <0.87 [facility] Comment on above: Order Comment: Speci men Type: BLOOD SPECIMENOrdering Facility: [facility] Address: [address] [place] [address] Performed By: #### 5 7021-8 ####[facility] LABORATORYCLIA [id number] [place] [address] [place] Monocytes/100 WBC (Bld) 7.1 % Normal [facility] Comment on above: Order Comment: Speci men Type: BLOOD SPECIMENOrdering Facility: [facility] Address: [address] [place] [address] Performed By: #### 5 7021-8 ####[facility]ORATORYCLIA [id number] [place] [address] [place] Neutrophils (Bld) [#/Vol] 9.98 10*3/uL High 1.45-7.50 [facility] Comment on above: Order Comment: Speci men Type: BLOOD SPECIMENOrdering Facility: [facility] Address: [address] [place] [address] Performed By: #### 5 7021-8 ####[facility]ORATORYCLIA [id number] [place] [address] [place] Neutrophils/100 WBC (Bld) 75.1 % Normal [facility] Comment on above: Order Comment: Speci men Type: BLOOD SPECIMENOrdering Facility: [facility] Address: [address] [place] [address] Performed By: #### 5 7021-8 ####[facility]ORATORYCLIA [id number] [place] [address] [place] Nucleated RBC (Bld) [#/Vol] 10*3/uL Normal <0.01 [facility] Comment on above: Order Comment: Speci men Type: BLOOD SPECIMENOrdering Facility: [facility] Address: [address] [place] [address] Performed By: #### 5 7021-8 ####[facility]ORATORYCLIA [id number] [place] [address] [place] Nucleated RBC/100 WBC (Bld) [Ratio] 0.0 /100 WBC Normal [facility] Comment on above: Order Comment: Speci men Type: BLOOD SPECIMENOrdering Facility: [facility] Address: [address] [place] [address] Performed By: #### 5 7021-8 ####[facility]ORATORYCLIA [id number] [place] [address] [place] Platelet mean volume (Bld) [Entitic vol] 8.9 fL Low 9.0-12.7 [facility] Comment on above: Order Comment: Speci men Type: BLOOD SPECIMENOrdering Facility: [facility] Address: [address] [place] [address] Performed By: #### 5 7021-8 ####[facility]ORATORYCLIA [id number] [place] [address] [place] Platelets (Bld) [#/Vol] 451 10*3/uL High 150-400 [facility] Comment on above: Order Comment: Speci men Type: BLOOD SPECIMENOrdering Facility: [facility] Address: [address] [place] [address] Performed By: #### 5 7021-8 ####[facility] LABORATORYIA [id number] [place] [address] [place] RBC (Bld) [#/Vol] 5.44 10*6/uL High 3.90-5.20 [facility] Comment on above: Order Comment: Speci men Type: BLOOD SPECIMENOrdering Facility: [facility] Address: [address] [place] [address] Performed By: #### 5 7021-8 ####[facility] LABORATORYCLIA [id number] [place] [address] [place] WBC (Bld) [#/Vol] 13.30 10*3/uL High 3.70-11.00 [facility] Comment on above: Order Comment: Speci men Type: BLOOD SPECIMENOrdering Facility: [facility] Address: [address] [place] [address] Performed By: #### 5 7021-8 ###[facility] LABORATORYCLIA [id number] [place] [address] [place] CRP SerPl-mCncon 07-14-2024 CRP [Mass/Vol] 1.1 mg/dL High <0.9 [facility] Comment on above: Order Comment: Speci men Type: BLOOD SPECIMEN Ordering Facility: [facility] Address: [address] [place] [address] Performed By: #### 1 4196-0, 20268-4 #### [facility] CLIA [id number] [address] [place] [address] [place] Comprehensive metabolic 2000 panelon 07-14-2024 Albumin [Mass/Vol] 4.9 g/dL Normal 3.9-4.9 [facility] Comment on above: Order Comment: Speci men Type: BLOOD SPECIMEN Ordering Facility: [facility] Address: [address] [place] [address] Performed By: #### 1 4196-0, 83461-4 #### [facility] CLIA [id number] [address] [place], [place] [id number] [place] ALP [Catalytic activity/Vol] 143 U/L High 34-123 [facility] Comment on above: Order Comment: Speci men Type: BLOOD SPECIMEN Ordering Facility: [facility] Address: [address] [place] [address] Performed By: #### 1 4196-0, 20742-8 #### [facility] CLIA [id number] [address] [place], [place] [address] [place] ALT [Catalytic activity/Vol] 23 U/L Normal 7-38 [facility] Comment on above: Order Comment: Speci men Type: BLOOD SPECIMEN Ordering Facility: [facility] Address: [address] [place] [address] Performed By: #### 1 4196-0, 05514-7 #### [facility] CLIA [id number] [address] [place], [place] [address] [place] Anion gap [Moles/Vol] 18 mmol/L High 8-15 [facility] Comment on above: Order Comment: Speci men Type: BLOOD SPECIMEN Ordering Facility: [facility] Address: [address] [place] [address] Performed By: #### 1 4196-0, 52657-7 #### [facility] CLIA [id number] [address] [place] [address] [place] AST [Catalytic activity/Vol] 34 U/L Normal 13-35 [facility] Comment on above: Order Comment: Speci men Type: BLOOD SPECIMEN Ordering Facility: [facility] Address: [address] [place] [address] Performed By: #### 1 4196-0, 98677-8 #### [facility] CLIA [id number] [address] [place] [address] [place] Bilirubin [Mass/Vol] 0.4 mg/dL Normal 0.2-1.3 [facility] Comment on above: Order Comment: Speci men Type: BLOOD SPECIMEN Ordering Facility: [facility] Address: [address] [place] [address] Performed By: #### 1 4196-0, 73689-4 #### [facility] CLIA [id number] [address] [place] [address] [place] Calcium [Mass/Vol] 9.9 mg/dL Normal 8.5-10.2 [facility] Comment on above: Order Comment: Speci men Type: BLOOD SPECIMEN Ordering Facility: [facility] Address: [address] [place] [address] Performed By: #### 1 4196-0, 46964-7 #### [facility] CLIA [id number] [address] [place] [address] [place] Chloride [Moles/Vol] 89 mmol/L Low 98-107 [facility] Comment on above: Order Comment: Speci men Type: BLOOD SPECIMEN Ordering Facility: [facility] Address: [address] [place] [address] Performed By: #### 1 4196-0, 23469-4 #### [facility] CLIA [id number] [address] [place] [address] [place] CO2 [Moles/Vol] 25 mmol/L Normal 22-30 [facility] Comment on above: Order Comment: Speci men Type: BLOOD SPECIMEN Ordering Facility: [facility] Address: [address] [place] [address] Performed By: #### 1 4196-0, 10576-3 #### [facility] CLIA [id number] [address] [place] [address] [place] Creatinine [Mass/Vol] 3.50 mg/dL High 0.58-0.96 [facility] Comment on above: Order Comment: Speci men Type: BLOOD SPECIMEN Ordering Facility: [facility] Address: [address] [place] [address] Performed By: #### 1 4196-0, 66518-3 #### [facility] CLIA [id number] [address] [place] [address] [facility] Creatinine and Glomerular filtration rate.predicted panel (S/P/Bld) 17 mL/min/1.73m??? Low >=60 [facility] Comment on above: Order Comment: Speci men Type: BLOOD SPECIMEN Ordering Facility: [facility] Address: [address] [place] [address] Result Comment: Cassy mated Glomerular Filtration Rate (eGFR) is calculated using the 2020 CKD-EPI creatinine equation. This equation utilizes serum creatinine, sex, and age as parameters. The creatinine assay has traceable calibration to isotope dilution-mass spectrometry. Refer to KDIGO guidelines for clinical interpretation. In patients with unstable renal function, e.g. those with acute kidney injury, the eGFR may not accurately reflect actual GFR. Performed By: #### 1 4196-0, 18190-8 #### [facility] CLIA [id number] [address] [place] [address] [place] Glucose [Mass/Vol] 102 mg/dL High 74-99 [facility] Comment on above: Order Comment: Specamerica mcdaniel Type: BLOOD SPECIMEN Ordering Facility: [facility] Address: [address] [place] [address] Result Comment: The [place] [employer] (ADA) provides guidance for cutoff values for fasting glucose and random glucose. The ADA defines fasting as no caloric intake for at least 8 hours. Fasting plasma glucose results between 100 to 125 mg/dL indicate increased risk for diabetes (prediabetes). Fasting plasma glucose results greater than or equal to 126 mg/dL meet the criteria for diagnosis of diabetes. In the absence of unequivocal hyperglycemia, results should be confirmed by repeat testing. In a patient with classic symptoms of hyperglycemia or hyperglycemic crisis, random plasma glucose results greater than or equal to 200 mg/dL meet the criteria for diagnosis of diabetes. Reference: Standards of Medical Care in Diabetes 2016, [place] [employer]. Diabetes Care. 2016.39(Suppl 1). Performed By: #### 1 4196-0, 38231-6 #### [facility] CLIA [id number] [address] [place] [address] [place] Potassium [Moles/Vol] 3.7 mmol/L Normal 3.7-5.1 [facility] Comment on above: Order Comment: Nadiai men Type: BLOOD SPECIMEN Ordering Facility: [facility] Address: [address] [place] [address] Performed By: #### 1 4196-0, 19992-3 #### [facility] CLIA [id number] [address] [place] [address] [place] Protein [Mass/Vol] 8.4 g/dL High 6.3-8.0 [facility] Comment on above: Order Comment: Nadiai jonas Type: BLOOD SPECIMEN Ordering Facility: [facility] Address: [address] [place] [address] Performed By: #### 1 4196-0, 32282-9 #### [facility] CLIA [id number] [address] [place] [address] [place] Sodium [Moles/Vol] 132 mmol/L Low 136-144 [facility] Comment on above: Order Comment: Speci men Type: BLOOD SPECIMEN Ordering Facility: [facility] Address: [address] [place] [address] Performed By: #### 1 4196-0, 86432-2 #### [facility] CLIA [id number] [address] [place] [address] [place] Urea nitrogen [Mass/Vol] 28 mg/dL High 7-21 [facility] Comment on above: Order Comment: Speci men Type: BLOOD SPECIMEN Ordering Facility: [facility] Address: [address] [place] [address] Performed By: #### 1 4196-0, 75628-2 #### [facility] CLIA [id number] [address] [place] [address] [place] ED NOTEon 07-14-2024 ED NOTE HNO ID: [id number] Author: MIRI WAGNER, PURA Service: ASSESSMENT Author Type: Registered Nurse Type: ED Notes Filed: 07/14/2024 23:50 Note Text: MMT at bedside for report. Pt transferred to [facility] in stable condition and without incident. Normal [facility] ED NOTE HNO ID: [id number] Author: DORIE PAREDES CT Service: Emergency Medicine Author Type: Clinical Roof Panel Hanger Type: ED Notes Filed: 07/14/2024 17:36 Note Text: Pt c/o day 3 of UTI sx, burning w/ urniation, states she believes she is dehydrated due to her muscles aching, and feeling weak. Pt states that she has been nauseated is also part of the reason she believes this is a UTI and why she needs fluids. Pt is AANDO x4, walked back to room 1. Pt states she has taken 3 days worth of augmentin (old rx that she did not use previously). Normal [facility] ED PROV NOTEon 07-14-2024 ED PROV NOTE HNO ID: [id number] Author: ALBA WOLFE DO Service: Emergency Medicine Author Type: Physician Type: ED Provider Notes Filed: 07/14/2024 19:28 Note Text: ED Provider Note Patient Name: Philippe Rg : 1985 SERVICE DATE: 07/14/24 History Patient presents with: UTI: Day 3 of burning w/ urination, pt states she's dehydrated AND feels weak, 38-year-old female with a history of thyroid cancer, underweight, nutritional deficiencies secondary to Crohn's disease which led to ileostomy creation after partial bowel resection presenting to the ER today with concerns for UTI and dehydration. Patient states she is on day 3 of burning with urination no obvious hematuria. Intermittently back pain but no true CVA tenderness or fevers. She feels generally weak and dehydrated as well. Has been taking leftover Augmentin for the past 3 days but symptoms are not improving. Does note that the ostomy output has increased a little bit since taking the Augmentin but may be secondary to that. 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 Maier-GI Hyponatremia Non-traumatic compression fracture of vertebral column (HCC) 05/14/2012 Nontoxic single thyroid nodule 04/29/2020 Palpitations takes propanolol as needed, when HR >100. None currently -- medicine induced. Thyroid cancer (HCC) Underweight Unspecified nutritional deficiency 10/19/2010 Stop HPN Vitamin D insufficiency PAST SURGICAL HISTORY Procedure Laterality Date CHOLECYSTECTOMY 04/28/2016 COLECTOMY TOTAL WO ANAST 10/30/2003 resection of terminal ileum (had 10 cm of TI disease) and colon from cecum to proximal descending colon w/ end-to-side anastomosis ILEOSTOMY 06/26/2014 MIDLINE INSERTION/CONSULT 07/13/2013 MIDLINE INSERTION/CONSULT 06/29/2014 PAST SURGICAL HISTORY OF 10/24/2003 Open drainage of abdominal abscess PAST SURGICAL HISTORY OF 12/2006 dilation of anal stricture and anal fistulectomy. Colonoscopy showed anal sticture, inflamm in rectum, and tight stricture at 40 cm that could not be traversed PAST SURGICAL HISTORY OF 01/2007 resection of 6 cm of TI (short stricture in this area) and ICA including strictured area of colon; Irasema pouch, end ileostomy PAST SURGICAL HISTORY OF 03/2007 dilation of anorectal stricture PAST SURGICAL HISTORY OF 04/28/2010 EUA, ileoscopy, flex sig and anastamotic dilatation PAST SURGICAL HISTORY OF 06/02/2010 takedown fistula, SBR, partial colectomy with ileosigmoid anastamosis, diverting jejunostomy PAST SURGICAL HISTORY OF 05/2010 Cystoscopy, bilateral ureteral stent insertion PICC LINE INSERT/CONSULT 05/14/2012 THYROIDECTOMY TOTAL/COMPLETE N/A 05/28/2020 Partial FAMILY HISTORY Problem Relation Age of Onset Cancer Maternal Grandfather multiple myeloma Cancer Paternal Grandfather multiple myeloma Colon Cancer Paternal Grandmother 78 other (No uterus cancer) Other Hypertension Father Ovarian cancer No Family History Breast Cancer No Family History Social History Tobacco Use Smoking status: Never Smokeless tobacco: Never Vaping Use Vaping status: Never Used Substance and Sexual Activity Alcohol use: Not Currently Comment: very rarely, none for one year 05/25/20 Drug use: Never Comment: ria matthew for drug/alcohol abuse in the past. Sexual activity: Yes Partners: Male control/protection: Vasectomy ALLERGIES Allergen Reactions Adhesive Tape (Deja* Rash Convatec waffer tape collar Adhesive- (most adhesive tape causes rash) tolerates versaderm in IV securement kit Humira [Adalimumab] Intolerance Iron Intolerance per pt- can take, but only very small dose. (IV Iron only causes issues.) Remicade [Inflixima* Shortness of Breath Vancomycin Rash Per Dr. Kamara Add Vanco to Allergy List - Rash Review of Systems Constitutional: Positive for fatigue. Respiratory: Negative for shortness of breath. Cardiovascular: Negative for chest pain. Gastrointestinal: Positive for abdominal pain. Genitourinary: Positive for dysuria. Allergic/Immunologic: Positive for immunocompromised state. All other systems reviewed and are negative. Physical Exam Vitals [07/14/24 1731] BP Pulse Temp Temp src Resp SpO2 Weight Height (!) 80/62 (!) 99 36.4 ?C (97.6 ?F) Oral 20 97 % 35.4 kg (78 lb) 1.448 m (4' 9) Physical Exam Vitals and nursing note reviewed. Constitutional: General: She is not in acute distress. Appearance: She is well-developed. She is not ill-appearing. HENT: Head: Normocephalic and atraumatic. Eyes: Conjunctiva/sclera: Conjunctivae normal. Neck: Thyroid: No thyromegaly. Trachea: No tracheal deviation. Cardiovascular: Rate and Rhythm: Nor (more content not included)... Normal [facility] Magnesium SerPl-mCncon 07-14 Magnesium [Mass/Vol] 2.2 mg/dL Normal 1.7-2.3 [facility] Comment on above: Order Comment: Kelly mcdaniel Type: BLOOD SPECIMEN Ordering Facility: [facility] Address: [address] [place] [address] Performed By: #### 1 4196-0, 01276-7 #### [facility] CLIA [id number] [address] [place] [address] [place] Urinalysis complete panel (U )on 07-14-2024 Bacteria LM.HPF (Urine sed) [#/Area] Few Abnormal None Seen [facility] Comment on above: Order Comment: Kelly mcdaniel Type: BLOOD SPECIMEN Ordering Facility: [facility] Address: [address] [place] [address] Performed By: #### 1 4196-0, 85808-2 #### [facility] CLIA [id number] [address] [place] [address] [place] Bilirubin Ql (U) 1+ Abnormal Negative [facility] Comment on above: Order Comment: Kelly mcdaniel Type: BLOOD SPECIMEN Ordering Facility: [facility] Address: [address] [place] [address] Result Comment: Sugg est correlation with clinical findings and serum bilirubin if clinically indicated. Performed By: #### 1 4196-0, 16860-8 #### [facility] CLIA [id number] [address] [place] [address] [place] Clarity (Unsp spec) Slightly Cloudy Abnormal Clear [facility] Comment on above: Order Comment: Speci men Type: BLOOD SPECIMEN Ordering Facility: [facility] Address: [address] [place] [address] Performed By: #### 1 4196-0, 69723-6 #### [facility] CLIA [id number] [address] [place] [address] [place] Color (U) Yellow Normal Yellow [facility] Comment on above: Order Comment: Speci men Type: BLOOD SPECIMEN Ordering Facility: [facility] Address: [address] [place] [address] Performed By: #### 1 4196-0, 29856-3 #### [facility] CLIA [id number] [address] [place] [address] [place] Epithelial cells LM.HPF (Urine sed) [#/Area] Few Normal [facility] Comment on above: Order Comment: Speci men Type: BLOOD SPECIMEN Ordering Facility: [facility] Address: [address] [place] [address] Performed By: #### 1 4196-0, 44901-6 #### [facility] CLIA [id number] [address] [place] [address] [place] Glucose Test strip (U) [Mass/Vol] Negative Normal Negative [facility] Comment on above: Order Comment: Speci men Type: BLOOD SPECIMEN Ordering Facility: [facility] Address: [address] [place] [address] Performed By: #### 1 4196-0, 32603-4 #### [facility] CLIA [id number] [address] [place] [address] [place] Hemoglobin Ql (U) Trace Abnormal Negative [facility] Comment on above: Order Comment: Speci men Type: BLOOD SPECIMEN Ordering Facility: [facility] Address: [address] [place] [address] Performed By: #### 1 4196-0, 95191-0 #### [facility] CLIA [id number] [address] [place] [address] [place] Ketones Ql (U) 1+ Abnormal Negative [facility] Comment on above: Order Comment: Speci men Type: BLOOD SPECIMEN Ordering Facility: [facility] Address: [address] [place] [address] Performed By: #### 1 4196-0, 78624-9 #### [facility] CLIA [id number] [address] [place] [address] [place] Leukocyte esterase Test strip Ql (U) 1+ Abnormal Negative [facility] Comment on above: Order Comment: Speci men Type: BLOOD SPECIMEN Ordering Facility: [facility] Address: [address] [place] [address] Performed By: #### 1 4196-0, 16749-2 #### [facility] CLIA [id number] [address] [place] [address] [place] Nitrite Ql (U) Negative Normal Negative [facility] Comment on above: Order Comment: Speci men Type: BLOOD SPECIMEN Ordering Facility: [facility] Address: [address] [place] [address] Performed By: #### 1 4196-0, 07076-8 #### [facility] CLIA [id number] [address] [place] [address] [place] pH (U) 5.5 [pH] Normal 5.0-8.0 [facility] Comment on above: Order Comment: Speci men Type: BLOOD SPECIMEN Ordering Facility: [facility] Address: [address] [place] [address] Performed By: #### 1 4196-0, 64956-1 #### [facility] CLIA [id number] [address] [place] [address] [place] Protein (U) [Mass/Vol] 2+ Abnormal Negative Cl [facility] Comment on above: Order Comment: Speci men Type: BLOOD SPECIMEN Ordering Facility: [facility] Address: [address] [place] [address] Performed By: #### 1 4196-0, 65392-2 #### [facility] CLIA [id number] [address] [place] [address] [place] RBC LM.HPF (Urine sed) [#/Area] 0-3 /HPF Normal 0-3 /HPF [facility] Comment on above: Order Comment: Speci men Type: BLOOD SPECIMEN Ordering Facility: [facility] Address: [address] [place] [address] Performed By: #### 1 4196-0, 94632-6 #### [facility] CLIA [id number] [address] [place] [address] [place] Specific gravity (U) [Rel density] 1.025 Normal 1.005-1.03 0 [facility] Comment on above: Order Comment: Speci men Type: BLOOD SPECIMEN Ordering Facility: [facility] Address: [address] [place] [address] Performed By: #### 1 4196-0, 41844-4 #### [facility] CLIA [id number] [address] [place] [address] [place] Urobilinogen Ql (U) 0.2 EU/dL Normal 0.2-1.0 EU/dL [facility] Comment on above: Order Comment: Speci men Type: BLOOD SPECIMEN Ordering Facility: [facility] Address: [address] [place] [address] Performed By: #### 1 4196-0, 96447-3 #### [facility] CLIA [id number] [address] [place] [address] [place] WBC LM.HPF (Urine sed) [#/Area] 6-10 /HPF Abnormal 0-5 /HPF [facility] Comment on above: Order Comment: Speci men Type: BLOOD SPECIMEN Ordering Facility: [facility] Address: [address] [place] [address] Performed By: #### 1 4196-0, 59337-6 #### [facility] CLIA [id number] [address] [place] [address] [place] [address] [place] CNCOon 07-02-2024 CNCO Letter Text Normal [facility] CNOVon 06-23-2024 CNOV Office Visit (OBGYWM ) PHILIPPE RG ([id number]) 1985 F Date Time Provider Department 06/23/24 1:20 PM CAREN HOUSER OBGYWM During your visit today, we recorded the following information about you: Blood pressure Weight Height Last Period 88 34.9 kg 1.448 m 06/20/24 Caren Houser MD 06/23/2024 2:16 PM Signed Obstetrics and Gynecology [place] Annual Exam Subjective Recording using ambient TapTrak software for draft documentation of the visit was discussed with the patient/authorized outreach representative; all questions welcomed and answered. Patient/authorized outreach representative agreed to proceed Acid Cleaner: declined CHIEF COMPLAINT: Annual and pain from ovarian cyst HPI: The patient is a 38-year-old female with a history of Crohn's disease and POTS, presenting for an annual exam. The patient reports worsening pain associated with a known cyst on the left side, particularly severe for a day following menstruation, accompanied by cramping and nausea. The pain gradually subsides over a few days. She notes that the pain has been progressively worsening and is considering the possibility of surgery. She has a history of extensive surgeries, including a cholecystectomy that was not performed laparoscopically due to anatomical challenges. She denies any new GI issues. She also experiences dyspareunia when the cyst is impacted during intercourse, though it does not prevent sexual activity. She denies any changes in urinary habits, dysuria, frequency, urgency, or vaginal concerns such as itching, burning, odors, or bleeding with intercourse. She reports regular menstrual cycles every 25-28 days, with no heavy bleeding or hot flashes. She is currently menstruating, having started on Sunday. She denies any breast changes, nipple discharge, pain, or masses and has no family history of breast cancer. The patient has a history of POTS, with episodes of hypotension causing her to be unable to drive. She is currently taking ivabradine, which she reports is effective. She previously tried Xanax and Ativan, which were ineffective and exacerbated hypotension. She is scheduled to start an immunosuppressant. She has two children, ages 3 and 5, and her partner has had a vasectomy. She has half of her thyroid remaining. HISTORY: OB History Gravida2 Para0 Term0 Preterm0 AB2 Living0 SAB2 IAB0 Ectopic0 Multiple0 Live Births0 Comment: Surrogate-2 child Manager Outpatient History LMP: 06/20/2024 (Exact Date), Having periods Age at Menarche: Age at First : Age at Menopause: Manager Outpatient History Comments: Sexual Activity: Yes; Male Contraception: Vasectomy PAST MEDICAL HISTORY Diagnosis Date Anemia Attention to ileostomy (HCC) 04/04/2012 Celiac disease (HCC) Cholelithiasis 03/2016 CRBSI (catheter-related bloodstream infection) 09/07/2010, 08/04/2010 (yeast/GPC, lactobacillus casei) Crohn's disease (HCC) Dx age 12 Dr. Maier-GI Hyponatremia Non-traumatic compression fracture of vertebral column (HCC) 05/14/2012 Nontoxic single thyroid nodule 04/29/2020 Palpitations takes propanolol as needed, when HR >100. None currently -- medicine induced. Thyroid cancer (HCC) Underweight Unspecified nutritional deficiency 10/19/2010 Stop HPN Vitamin D insufficiency PAST SURGICAL HISTORY Procedure Laterality Date CHOLECYSTECTOMY 04/28/2016 COLECTOMY TOTAL WO ANAST 10/30/2003 resection of terminal ileum (had 10 cm of TI disease) and colon from cecum to proximal descending colon w/ end-to-side anastomosis ILEOSTOMY 06/26/2014 MIDLINE INSERTION/CONSULT 07/13/2013 MIDLINE INSERTION/CONSULT 06/29/2014 PAST SURGICAL HISTORY OF 10/24/2003 Open drainage of abdominal abscess PAST SURGICAL HISTORY OF 12/2006 dilation of anal stricture and anal fistulectomy. Colonoscopy showed anal sticture, inflamm in rectum, and tight stricture at 40 cm that could not be traversed PAST SURGICAL HISTORY OF 01/2007 resection of 6 cm of TI (short stricture in this area) and ICA including strictured area of colon; Irasema pouch, end ileostomy PAST SURGICAL HISTORY OF 03/2007 dilation of anorectal stricture PAST SURGICAL HISTORY OF 04/28/2010 EUA, ileoscopy, flex sig and anastamotic dilatation PAST SURGICAL HISTORY OF 06/02/2010 takedown fistula, SBR, partial colectomy with ileosigmoid anastamosis, diverting jejunostomy PAST SURGICAL HISTORY OF 05/2010 Cystoscopy, bilateral ureteral stent insertion PICC LINE INSERT/CONSULT 05/14/2012 THYROIDECTOMY TOTAL/COMPLETE N/A 05/28/2020 Partial FAMILY HISTORY Problem Relation Age of Onset Cancer Maternal Grandfather multiple myeloma Cancer Paternal Grandfather multiple myeloma Colon Cancer Paternal Grandmother 78 other (No uterus cancer) Other Hypertension Father Ovarian cancer No Family History Breast Cancer No Family History So (more content not included)... Normal [facility] HIGH RISK HUMAN PAPILLOMA NICHOLAS (HPV), PCR FOR DETECTION AND GENOTYPINGon 06-23-2024 HPV 16 Ag Ql (Unsp spec) Not detected Normal Not detected [facility] Comment on above: Order Comment: Speci men Type: FLUID SPECIMENOrdering Facility: [facility] Address: [address] [place] [address] Performed By: #### H PVHRT ####[facility] [id number] [place] [address] [place] HPV 18 Ag Ql (Unsp spec) Not detected Normal Not detected [facility] Comment on above: Order Comment: Speci men Type: FLUID SPECIMENOrdering Facility: [facility] Address: [address] [place] [address] Performed By: #### H PVHRT ####[facility] [id number] [place] [address] [place] HPV 31+33+35+39+45+51+52+5 6+58+59+66+68 DNA SIAK+probe Ql (Cvx) Not detected Normal Not detected [facility] Comment on above: Order Comment: Speci men Type: FLUID SPECIMENOrdering Facility: [facility] Address: [address] [place] [address] Result Comment: High Risk HPV Other Type includes HPV types 31, 33, 35, 39, 45, 51, 52, 56, 58, 59, 66 and 68. Performed By: #### H PVHRT ####[facility] [id number] [place] [address] [place] PAP TESTon 06-23-2024 ADEQUACY Normal [facility] Comment on above: Order Comment: Speci men Type: BLOOD SPECIMEN Ordering Facility: [facility] Address: [address] [place] [address] Result Comment: Sati sfactory for interpretation. Transformation zone present Performed By: #### 1 4196-0, 38000-6 #### [facility] CLIA [id number] [address] [place] [address] [place] CASE REPORT Normal [facility] Comment on above: Order Comment: Speci men Type: BLOOD SPECIMEN Ordering Facility: [facility] Address: [address] [place] [address] Result Comment: Gyne cologic Cytology Report Case: [id number] Authorizing Provider: Caren Houser, Collected: 06/23/2024 02:11 PM Ordering Location: OB/Gynecology Received: 06/24/2024 07:25 AM First Screen: Ashley Desai, CT, ASCP Specimen: Pap Test, ThinPrep, Cervix Performed By: #### 1 4196-0, 40674-3 #### [facility] CLIA [id number] [address] [place] [address] [place] CLINICAL HISTORY, CYTOLOGY, BARKER PEELER Routine Exam Normal [facility] Comment on above: Order Comment: Speci men Type: BLOOD SPECIMEN Ordering Facility: [facility] Address: [address] [place] [address] Performed By: #### 1 4196-0, 56872-5 #### [facility] CLIA [id number] [address] [place], [place] [id number] [place] FINAL PERFORMING LAB Normal [facility] Comment on above: Order Comment: Speci men Type: BLOOD SPECIMEN Ordering Facility: [facility] Address: [address] [place] [address] Result Comment: Tech nical component, door maker screening performed at [facility], [address] [place] [address] [place] [address] CLIA# [id number] Diagnostic interpretation performed at [facility], [address] [place], [place] [id number] CLIA# [id number] Director Translational: Bernardo Cuevas M.D. Performed By: #### 1 4196-0, 22479-0 #### [facility] CLIA [id number] [address] [place] [address] [place] INTERPRETATION, CYTOLOGY, BARKER PEELER Normal [facility] Comment on above: Order Comment: Speci men Type: BLOOD SPECIMEN Ordering Facility: [facility] Address: [address] [place] [address] Result Comment: Nega tive for intraepithelial lesion or malignancy. at 1437 EDT Performed By: #### 1 4196-0, 84224-5 #### [facility] CLIA [id number] [address] [place], [place] [id number] [place] LMP 06/20/2024 Normal [facility] Comment on above: Order Comment: Speci men Type: BLOOD SPECIMEN Ordering Facility: [facility] Address: [address] [place] [address] Performed By: #### 1 4196-0, 68620-6 #### [facility] CLIA [id number] [place] PAP DISCLAIMER COMMENT The Pap Smear is a screening test for cervical cancer. False negative results occur with all screening tests, emphasizing the need for rescreening at recommended intervals, and clinical correlation. Normal [facility] Comment on above: Order Comment: Speci men Type: BLOOD SPECIMEN Ordering Facility: [facility] Address: [address] [place] [address] Performed By: #### 1 4196-0, 48020-0 #### [facility] CLIA [id number] [address] [place] [address] [place] PAP DATAPOWER CONSULTANT COMMENT This specimen has be en analyzed by the ThinPrep Imaging System, an automated imaging and review system, which assists the laboratory in evaluating cells on ThinPrep Pap tests. Following automated imaging, selected ramsey from every slide are reviewed by a door maker. Normal [facility] Comment on above: Order Comment: Speci men Type: BLOOD SPECIMEN Ordering Facility: [facility] Address: [address] [place] [address] Performed By: #### 1 4196-0, 13875-7 #### [facility] CLIA [id number] [address] [place] [address] OF [facility] L3410.9998on 06-05-2024 [facility] Misc. COMMENT Normal . [facility] Comment on above: Order Comment: STOOL [id number] OSMO Result Comment: Test Ordered: 787010 Osmolality, FecalOsmolality, Fecal 355 BN Units of Measure: mOsmol/kg Reference Range: Not Estab.Performed at: - [facility] [id number] Director: Bettina Jimenez MD, Phone: [phone] at: - [facility] [address] [id number] Director: Juan C Valladares PhD, Phone: [phone] Performed By: #### L 7000.0300, L3410.9998 ####[facility] [address] [place], [place], [address] Fecal Fat, Qualitativeon FATS, NEUTRAL Normal Normal . [facility] Comment on above: Order Comment: Test( s) 486866-Miee, Neutral; 884314-Xsrm, Totalwas developed and its performance characteristicsdetermined by [email or web address]. It has not been cleared or approvedby the Food and Drug Administration. Result Comment: Norm al (<60 Droplets/HPF) Performed By: #### L 7000.0300, L3410.9998 ####[facility] [address] [place], [place], [id number] FATS, TOTAL Normal Normal . [facility] Comment on above: Order Comment: Test( s) 090602-Sbtp, Neutral; 368825-Zgby, Totalwas developed and its performance characteristicsdetermined by [employer]. It has not been cleared or approvedby the Food and Drug Administration. Result Comment: Norm al (<100 Droplets/HPF)Performed at: [facility] [place] [id number] Director: Juan C Valladares PhD, Phone: [phone] Performed By: #### L 7000.0300, L3410.9998 ####[facility] [address] [place], [place], [id number] Absolute neutrophil countOrd ered By: Antonio Roman on 06-03-2024 Neutrophils (Bld) [#/Vol] 4.3 10*3/uL 2.0-7.7 [facility] Anion gap in Serum or Plasma Ordered By: Antonio Roman on 06-03-2024 Anion gap [Moles/Vol] 12 mmol/L 5-15 [facility] BUN/creatinine ratioOrdered By: Antonio Roman on 06-03-2024 Urea nitrogen/Creatinine [Mass ratio] 8.7 mg/mg Low 10-20 [facility] Basophil percentageOrdered B y: Antonio Roman on 06-03-2024 Basophils/100 WBC (Bld) 1.4 % High 0-1 [facility] Bilirubin, totalOrdered By: Antonio Roman on 06-03-2024 Bilirubin [Mass/Vol] 0.34 mg/dL 0.00-1.30 [facility] CBC W/Diff, Automatedon 05-11 Absolute Lymph 1.67 X10 3/uL Normal 0.83-4.51 [facility] Comment on above: Performed By: #### L 100.0100, L500.4050 ####[facility] [address] [place], [address] Absolute Neut 4.3 X10 3/uL Normal 2.0-7.7 [facility] Comment on above: Performed By: #### L 100.0100, L500.4050 ####[facility] [address] [place], [address] Basophils/100 WBC (Bld) 1.4 % High 0-1 [facility] Comment on above: Performed By: #### L 100.0100, L500.4050 ####[facility] [address] [place], [address] Eosinophils/100 WBC (Bld) 3.9 % Normal 0-5 [facility] Comment on above: Performed By: #### L 100.0100, L500.4050 ####[facility] [address] [place], [address] Erythrocyte distribution width (RBC) [Ratio] 13.2 % Normal 11.6-14.6 [facility] Comment on above: Performed By: #### L 100.0100, L500.4050 ####[facility] [address] [place], [address] Hematocrit (Bld) [Volume fraction] 44.1 % Normal 37-47 [facility] Comment on above: Performed By: #### L 100.0100, L500.4050 ####[facility] [address] [place], [address] Hemoglobin (Bld) [Mass/Vol] 14.8 g/dL Normal 12.0-15.0 [facility] Comment on above: Performed By: #### L 100.0100, L500.4050 ####[facility] [address] [place], [address] IG% 1.300 High 0.0-0.9 [facility] Comment on above: Result Comment: IG% - Immature Granulocytes (promyelocytes, myelocytes andmetamyelocytes) > 1% indicates that a LEFT SHIFT is Present. Performed By: #### L 100.0100, L500.4050 ####[facility] [address] [place], [address] Lymphocytes/100 WBC (Bld) 23.5 % Normal 19-41 [facility] Comment on above: Performed By: #### L 100.0100, L500.4050 ####[facility] [address] [place], [address] MCH (RBC) [Entitic mass] 28.6 pg Normal 27.0-32.0 [facility] Comment on above: Performed By: #### L 100.0100, L500.4050 ####[facility] [address] [place], [address] MCHC (RBC) [Mass/Vol] 33.6 g/dL Normal 32-36 [facility] Comment on above: Performed By: #### L 100.0100, L500.4050 ####[facility] [address] [place], [address] MCV (RBC) [Entitic vol] 85.3 fL Normal 81-99 [facility] Comment on above: Performed By: #### L 100.0100, L500.4050 ####[facility] [address] [place], [address] Monocytes/100 WBC (Bld) 9.8 % Normal 0-10 [facility] Comment on above: Performed By: #### L 100.0100, L500.4050 ####[facility] [address] [place], [address] Neutrophils/100 WBC (Bld) 60.1 % Normal 47-70 [facility] Comment on above: Performed By: #### L 100.0100, L500.4050 ####[facility] [address] [place], [address] Nucleated RBC (Bld) [#/Vol] 0 10*3/uL Normal 0-5 [facility] Comment on above: Performed By: #### L 100.0100, L500.4050 ####[facility] [address] [place], [address] Platelet mean volume (Bld) [Entitic vol] 9.5 fL Normal 6.2-12.0 [facility] Comment on above: Performed By: #### L 100.0100, L500.4050 ####[facility] [address] [place], [address] Platelets (Bld) [#/Vol] 412 10*3/uL Normal 150-450 [facility] Comment on above: Performed By: #### L 100.0100, L500.4050 ####[facility] [address] [place], [address] RBC (Bld) [#/Vol] 5.17 10*6/uL Normal 4.2-5.4 [facility] Comment on above: Performed By: #### L 100.0100, L500.4050 ####[facility] [address] [place], [address] RDW SD 40.3 fl Normal 35.1-43.9 [facility] Comment on above: Performed By: #### L 100.0100, L500.4050 ####[facility] [address] [place], [address] WBC (Bld) [#/Vol] 7.1 10*3/uL Normal 4.4-11.0 [facility] Comment on above: Performed By: #### L 100.0100, L500.4050 ####[facility] [address] [place], [address] Carbon dioxide, total [Moles /volume] in Central venous bloodOrdered By: Antonio Roman on 06-03-2024 CO2 [Moles/Vol] 28.0 mmol/L 21.0-32.0 [facility] Chloride assayOrdered By: Ashly Roman on 06-03-2024 Chloride [Moles/Vol] 93 mmol/L Low 98-108 [facility] Comprehensive Metabolic Prof ilon 06-03-2024 Albumin [Mass/Vol] 4.1 g/dL Normal 3.5-5.0 [facility] Comment on above: Performed By: #### L 100.0100, L500.4050 ####[facility] [address] [place], [address] Albumin/Globulin [Mass ratio] 1.2 {ratio} Normal 0.9-2.4 [facility] Comment on above: Performed By: #### L 100.0100, L500.4050 ####[facility] [address] [place], [address] ALK PHOS 132 U/L High 35-104 [facility] Comment on above: Performed By: #### L 100.0100, L500.4050 ####[facility] [address] [place], [address] ALT [Catalytic activity/Vol] 23 U/L Normal <=34 [facility] Comment on above: Performed By: #### L 100.0100, L500.4050 ####[facility] [address] [place], [address] AST [Catalytic activity/Vol] 38 U/L High <=31 [facility] Comment on above: Performed By: #### L 100.0100, L500.4050 ####[facility] [address] [place], [address] Bilirubin [Mass/Vol] 0.34 mg/dL Normal 0.00-1.30 [facility] Comment on above: Performed By: #### L 100.0100, L500.4050 ####[facility] [address] [place], [address] BUN/CRE 8.7 RATIO Low 10-20 [facility] Comment on above: Performed By: #### L 100.0100, L500.4050 ####[facility] [address] [place], [address] Calcium [Mass/Vol] 9.5 mg/dL Normal 7.6-11.0 [facility] Comment on above: Performed By: #### L 100.0100, L500.4050 ####[facility] [address] [place], [address] Chloride [Moles/Vol] 93 mmol/L Low 98-108 [facility] Comment on above: Performed By: #### L 100.0100, L500.4050 ####[facility] [address] [place], [address] CO2 [Moles/Vol] 28.0 mmol/L Normal 21.0-32.0 [facility] Comment on above: Performed By: #### L 100.0100, L500.4050 ####[facility] [address] [place], [address] Creatinine [Mass/Vol] 1.30 mg/dL High 0.70-1.20 [facility] Comment on above: Performed By: #### L 100.0100, L500.4050 ####[facility] [address] [place], [address] GAP 12 Normal 5-15 [facility] Comment on above: Performed By: #### L 100.0100, L500.4050 ####[facility] [address] [place], [address] GFR/1.73 sq M.predicted among non-blacks MDRD (S/P/Bld) [Vol rate/Area] 54 mL/min/{1.73_m2} Low >60 [facility] Comment on above: Result Comment: mL/m in/1.73m2 CKD-EPI Creatinine Equation (2020) Performed By: #### L 100.0100, L500.4050 ####[facility] [address] [place], [address] Globulin (S) [Mass/Vol] 3.3 g/dL Normal 2.2-4.2 [facility] Comment on above: Performed By: #### L 100.0100, L500.4050 ####[facility] [address] [place], [address] Glucose [Mass/Vol] 89 mg/dL Normal 70-99 [facility] Comment on above: Performed By: #### L 100.0100, L500.4050 ####[facility] [address] [place], [address] Potassium [Moles/Vol] 3.3 mmol/L Normal 3.3-5.1 [facility] Comment on above: Performed By: #### L 100.0100, L500.4050 ####[facility] [address] [place], [address] Sodium [Moles/Vol] 134 mmol/L Normal 133-145 [facility] Comment on above: Performed By: #### L 100.0100, L500.4050 ####[facility] [address] [place], [address] T PROT 7.4 g/dL Normal 5.9-8.4 [facility] Comment on above: Performed By: #### L 100.0100, L500.4050 ####[facility] [address] [place], [address] Urea nitrogen [Mass/Vol] 11 mg/dL Normal 4-19 [facility] Comment on above: Performed By: #### L 100.0100, L500.4050 ####[facility] [address] [place], [address] Endocrinology Visit Reporton 06-03-2024 Endocrinology Visit Report Normal [facility] Eosinophil percentageOrdered By: Antonio Roman on 06-03-2024 Eosinophils/100 WBC (Bld) 3.9 % 0-5 [facility] Erythrocyte distribution wid th ratioOrdered By: Antonio Roman on 06-03-2024 Erythrocyte distribution width (RBC) [Ratio] 13.2 % 11.6-14.6 [facility] Erythrocyte distribution wid th standard deviationOrdered By: Antonio Roman on 06-03-2024 Erythrocyte distribution width (RBC) [Entitic vol] 40.3 fL 35.1-43.9 [facility] Fat Ql (Stl)Ordered By: Norma Caruso on 06-03-2024 Stool Total Fats Normal . [facility] Comment on above: Normal (<100 Droplet s/HPF)Performed at: - [facility] [id number] Director: Juan C Valladares PhD, Phone: [phone] GFR/1.73 sq M.predicted stefano g non-blacks MDRD (S/P/Bld) [Vol rate/Area]Ordered By: Antonio Roman on 06-03-2024 Estimated GFR (MDRD) Non-Af Amer 54 Low >60 [facility] Comment on above: mL/min/1.73m2 CKD-EP I Creatinine Equation (2020) Hematocrit Auto (Bld) [Volum e fraction]Ordered By: Antonio Roman on 06-03-2024 Hematocrit (Bld) [Volume fraction] 44.1 % 37-47 [facility] Hemoglobin measurementOrdere d By: Antonio Roman on 06-03-2024 Hemoglobin (Bld) [Mass/Vol] 14.8 g/dL 12.0-15.0 [facility] Immature granulocytes/100 WB C Auto (Bld)Ordered By: Antonio Roman on 06-03-2024 Immature granulocytes/100 WBC (Bld) 1.300 % High 0.0-0.9 [facility] Comment on above: IG% - Immature Granu locytes (promyelocytes, myelocytes and metamyelocytes) > 1% indicates that a LEFT SHIFT is Present. Laboratory - Chemistry and C hemistry - challengeOrdered By: Antonio Roman on 06-03-2024 AST [Catalytic activity/Vol] 38 U/L High <32 [facility] Lymphocytes Auto (Unsp spec) [#/Vol]Ordered By: Antonio Roman on 06-03-2024 Lymphocytes (Bld) [#/Vol] 1.67 10*3/uL 0.83-4.51 [facility] Lymphocytes/100 WBC Auto (Un sp spec)Ordered By: Antonio Roman on 06-03-2024 Lymphocytes/100 WBC (Bld) 23.5 % 19-41 [facility] MCV (mean corpuscular volume ) determinationOrdered By: Antonio Roman on 06-03-2024 MCV (RBC) [Entitic vol] 85.3 fL 81-99 [facility] Magnesiumon 06-03-2024 Magnesium [Mass/Vol] 2.0 mg/dL Normal 1.5-2.2 [facility] Comment on above: Performed By: #### L 501.5200, L501.7300 ####[facility] [address] [place], [place], [id number] Magnesium (Unsp spec) [Mass/ Vol]Ordered By: Ashley Caruso on 06-03-2024 Magnesium [Mass/Vol] 2.0 mg/dL 1.5-2.2 [facility] Mean corpuscular hemoglobin (MCH) determinationOrdered By: Antonio Roman on 06-03-2024 MCH (RBC) [Entitic mass] 28.6 pg 27.0-32.0 [facility] Mean corpuscular hemoglobin concentration (MCHC) determinationOrdered By: Antonio Roman on 06-03-2024 MCHC (RBC) [Mass/Vol] 33.6 g/dL 32-36 [facility] Mean platelet volume determi nationOrdered By: Antonio Roman on 06-03-2024 Platelet mean volume (Bld) [Entitic vol] 9.5 fL 6.2-12.0 [facility] Monocyte percentageOrdered B y: Antonio Roman on 06-03-2024 Monocytes/100 WBC (Bld) 9.8 % 0-10 [facility] Neutrophil percentageOrdered By: Antonio Roman on 06-03-2024 Neutrophils/100 WBC (Bld) 60.1 % 47-70 [facility] No Panel InformationOrdered By: Ashley Caruso on 06-03-2024 Stool Neutral Fats Normal . [facility] Comment on above: Normal (<60 Droplets /HPF) Nucleated red blood cell per centageOrdered By: Antonio Roman on 06-03-2024 Nucleated RBC/100 WBC (Bld) [Ratio] 0 % 0-5 [facility] Osmolality (U) [Osmolality]O rdered By: Ashley Caruso on 06-03-2024 Urine Osmolality 357 mOsm/KG >50 [facility] Comment on above: Normal Urine Referen ce Ranges Random: 50 - 1200 mOsm/kg H20 depending on fluid intake Random: >850 mOsm/kg after 12 hour fluid restriction 24 hour: ~300 - 900 mOsm/kg H2O Osmolality, Serumon 06-04-19 25 OSMOLALITY,SER 284 mOsm/KG Normal 275-295 [facility] Comment on above: Performed By: #### L 501.5200, L501.7300 ####[facility] [address] [place], [place], [address] Osmolality, Urineon 06-04-19 25 OSMOLALITY,UR 357 mOsm/KG Normal [facility] Comment on above: Result Comment: Norm al Urine Reference Ranges Random: 50 - 1200 mOsm/kg H20 depending on fluid intake Random: >850 mOsm/kg after 12 hour fluid restriction 24 hour: 300 - 900 mOsm/kg H2O Performed By: #### L 501.7400 ####[facility] [address] [place], [address] Osmolality, serumOrdered By: Ashley Caruso on 06-03-2024 Serum Osmolality 284 mOsm/KG 275-295 [facility] Platelet countOrdered By: Ashly Roman on 06-03-2024 Platelets (Bld) [#/Vol] 412 10*3/uL 150-450 [facility] Potassium (Unsp spec) [Mass/ Vol]Ordered By: Antonio Roman on 06-03-2024 Potassium [Moles/Vol] 3.3 mmol/L 3.3-5.1 [facility] RBC Auto (Bld) [#/Vol]Ordere d By: Antonio Roman on 06-03-2024 RBC (Bld) [#/Vol] 5.17 10*6/uL 4.2-5.4 [facility] Serum creatinine measurement (mass/volume)Ordered By: Antonio Roman on 06-03-2024 Creatinine [Mass/Vol] 1.30 mg/dL High 0.70-1.20 [facility] Serum globulin measurementOr dered By: Antonio Roman on 06-03-2024 Globulin (S) [Mass/Vol] 3.3 g/dL 2.2-4.2 [facility] Serum glucose measurement (m ass/volume)Ordered By: Antonio Roman on 06-03-2024 Glucose [Mass/Vol] 89 mg/dL 70-99 [facility] Serum or plasma alanine mendieta otransferase (ALT) measurementOrdered By: Antonio Roman on 06-03-2024 ALT [Catalytic activity/Vol] 23 U/L <35 [facility] Serum or plasma albumin joselyn urement (mass/volume)Ordered By: Antonio Roman on 06-03-2024 Albumin [Mass/Vol] 4.1 g/dL 3.5-5.0 [facility] Serum or plasma albumin/glob ulin mass ratioOrdered By: Antonio Roman on 06-03-2024 Albumin/Globulin [Mass ratio] 1.2 {ratio} 0.9-2.4 [facility] Serum or plasma alkaline samantha sphatase measurementOrdered By: Antonio Roman on 06-03-2024 ALP [Catalytic activity/Vol] 132 U/L High 35-104 [facility] Serum or plasma calcium joselyn urement (mass/volume)Ordered By: Antonio Roman on 06-03-2024 Calcium [Mass/Vol] 9.5 mg/dL 7.6-11.0 [facility] Serum or plasma urea nitroge n measurement (mass/volume)Ordered By: Antonio Roman on 06-03-2024 Urea nitrogen [Mass/Vol] 11 mg/dL 4-19 [facility] Sodium levelOrdered By: Sebas Roman on 06-03-2024 Sodium [Moles/Vol] 134 mmol/L 133-145 [facility] Total proteinOrdered By: Arvin Roman on 06-03-2024 Protein [Mass/Vol] 7.4 g/dL 5.9-8.4 [facility] White blood cell (WBC) count Ordered By: Antonio Roman on 06-03-2024 WBC (Bld) [#/Vol] 7.1 10*3/uL 4.4-11.0 [facility] Internal Medicine Office Vis iton 05-28-2024 Internal Medicine Office Visit Normal [facility] Calprotectin, Stoolon [address] 52 ug/g Normal 0-120 [facility] Comment on above: Result Comment: Conc entration Interpretation Follow-Up< 5 - 50 ug/g Normal None>50 -120 ug/g Borderline Re-evaluate in 4-6 weeks >120 ug/g Abnormal Repeat as clinically indicatedPerformed at: [facility] - [facility] [address] [id number] Director: Bettina Jimenez MD, Phone: [phone] Performed By: #### L 500.3965, L100.0100, L6900.0700 ####[facility] [address] [place], [address] Culture, Blood (WB)on 2024 CUB Blood cultures x2, f rom two different sites No growth in 5 days. Normal [facility] Comment on above: Performed By: #### M 200.1000 ####[facility] [address] [place], [address] CUB Blood cultures x2, f rom two different sites No growth in 5 days. Normal [facility] Comment on above: Performed By: #### M 200.1000 ####[facility] [address] [place], [address] CBC W/Diff, Automatedon 03-0 Absolute Neut Normal 2.0-7.7 [facility] Comment on above: Result Comment: Canc elled via OM: Order cancelled - Patient discharged Performed By: #### L 100.0100 ####[facility] [address] [place], [address] HCT Normal 37-47 [facility] Comment on above: Result Comment: Canc elled via OM: Order cancelled - Patient discharged Performed By: #### L 100.0100 ####[facility] [address] [place], [address] HGB Normal 12.0-15.0 [facility] Comment on above: Result Comment: Canc elled via OM: Order cancelled - Patient discharged Performed By: #### L 100.0100 ####[facility] [address] [place], [address] MCH Normal 27.0-32.0 [facility] Comment on above: Result Comment: Canc elled via OM: Order cancelled - Patient discharged Performed By: #### L 100.0100 ####[facility] [address] [place], [address] MCHC Normal 32-36 [facility] Comment on above: Result Comment: Canc elled via OM: Order cancelled - Patient discharged Performed By: #### L 100.0100 ####[facility] [address] [place], [address] MCV Normal 81-99 [facility] Comment on above: Result Comment: Canc elled via OM: Order cancelled - Patient discharged Performed By: #### L 100.0100 ####[facility] [address] [place], [address] NEUT% Normal 47-70 [facility] Comment on above: Result Comment: Canc elled via OM: Order cancelled - Patient discharged Performed By: #### L 100.0100 ####[facility] [address] [place], [address] PLT Normal 150-450 [facility] Comment on above: Result Comment: Canc elled via OM: Order cancelled - Patient discharged Performed By: #### L 100.0100 ####[facility] [address] [place], [address] RBC Normal 4.2-5.4 [facility] Comment on above: Result Comment: Canc elled via OM: Order cancelled - Patient discharged Performed By: #### L 100.0100 ####[facility] [address] [place], [address] RDW CV Normal 11.6-14.6 [facility] Comment on above: Result Comment: Canc elled via OM: Order cancelled - Patient discharged Performed By: #### L 100.0100 ####[facility] [address] [place], [address] RDW SD Normal 35.1-43.9 [facility] Comment on above: Result Comment: Canc elled via OM: Order cancelled - Patient discharged Performed By: #### L 100.0100 ####[facility] [address] [place], [address] WBC Normal 4.4-11.0 [facility] Comment on above: Result Comment: Canc elled via OM: Order cancelled - Patient discharged Performed By: #### L 100.0100 ####[facility] [address] [place], [address] Absolute neutrophil countOrd ered By: Ashley Caruso on 05-15-2024 Neutrophils (Bld) [#/Vol] 9.8 10*3/uL High 2.0-7.7 [facility] Anion gap in Serum or Plasma Ordered By: Ashley Caruso on 05-15-2024 Anion gap [Moles/Vol] 12 mmol/L 5-15 [facility] BUN/creatinine ratioOrdered By: Ashley Caruso on 05-15-2024 Urea nitrogen/Creatinine [Mass ratio] 10.7 mg/mg 10- [facility] Basic Metabolic Profile (BMP )on 05-15-2024 BUN Normal 4-19 [facility] Comment on above: Result Comment: Canc elled via OM: Order cancelled - Patient discharged Performed By: #### L 500.2500, L100.0100 ####[facility] [address] [place], [address] BUN/CRE Normal 10-20 [facility] Comment on above: Result Comment: Canc elled via OM: Order cancelled - Patient discharged Performed By: #### L 500.2500, L100.0100 ####[facility] [address] [place], [address] Calcium Normal 7.6-11.0 [facility] Comment on above: Result Comment: Canc elled via OM: Order cancelled - Patient discharged Performed By: #### L 500.2500, L100.0100 ####[facility] [address] [place], [address] CL Normal 98-108 [facility] Comment on above: Result Comment: Canc elled via OM: Order cancelled - Patient discharged Performed By: #### L 500.2500, L100.0100 ####[facility] [address] [place], [address] CO2 Normal 21.0-32.0 [facility] Comment on above: Result Comment: Canc elled via OM: Order cancelled - Patient discharged Performed By: #### L 500.2500, L100.0100 ####[facility] [address] [place], [address] CREAT,SERUM Normal 0.70-1.20 [facility] Comment on above: Result Comment: Canc elled via OM: Order cancelled - Patient discharged Performed By: #### L 500.2500, L100.0100 ####[facility] [address] [place], [address] eGFR Normal >60 [facility] Comment on above: Result Comment: Canc elled via OM: Order cancelled - Patient discharged Performed By: #### L 500.2500, L100.0100 ####[facility] [address] [place], [address] GAP Normal 5-15 [facility] Comment on above: Result Comment: Canc elled via OM: Order cancelled - Patient discharged Performed By: #### L 500.2500, L100.0100 ####[facility] [address] [place], [address] GLU Normal 70-99 [facility] Comment on above: Result Comment: Canc elled via OM: Order cancelled - Patient discharged Performed By: #### L 500.2500, L100.0100 ####[facility] [address] [place], [address] Potassium Normal 3.3-5.1 [facility] Comment on above: Result Comment: Canc elled via OM: Order cancelled - Patient discharged Performed By: #### L 500.2500, L100.0100 ####[facility] [address] [place], [address] Basic Metabolic Profile (BMP) Normal 133-145 [facility] Comment on above: Result Comment: Canc elled via OM: Order cancelled - Patient discharged Performed By: #### L 500.2500, L100.0100 ####[facility] [address] [place], [address] Basophil percentageOrdered B y: Ashley Caruso on 05-15-2024 Basophils/100 WBC (Bld) 0.4 % 0-1 [facility] Bilirubin, totalOrdered By: Ashley Caruso on 05-15-2024 Bilirubin [Mass/Vol] 0.20 mg/dL 0.00-1.30 [facility] CBC W/Diff, Automatedon Absolute Lymph 2.12 X10 3/uL Normal 0.83-4.51 [facility] Comment on above: Performed By: #### L 100.0100, L500.4050, L501.6710 ####[facility] [address] [place], [address] Absolute Neut 9.8 X10 3/uL High 2.0-7.7 [facility] Comment on above: Performed By: #### L 100.0100, L500.4050, L501.6710 ####[facility] [address] [place], [address] Basophils/100 WBC (Bld) 0.4 % Normal 0-1 [facility] Comment on above: Performed By: #### L 100.0100, L500.4050, L501.6710 ####[facility] [address] [place], [address] Eosinophils/100 WBC (Bld) 0.1 % Normal 0-5 [facility] Comment on above: Performed By: #### L 100.0100, L500.4050, L501.6710 ####[facility] [address] [place], [address] Erythrocyte distribution width (RBC) [Ratio] 14.4 % Normal 11.6-14.6 [facility] Comment on above: Performed By: #### L 100.0100, L500.4050, L501.6710 ####[facility] [address] [place], [address] Hematocrit (Bld) [Volume fraction] 36.6 % Low 37-47 [facility] Comment on above: Performed By: #### L 100.0100, L500.4050, L5.6710 ####[facility] [address] [place], [address] Hemoglobin (Bld) [Mass/Vol] 12.3 g/dL Normal 12.0-15.0 [facility] Comment on above: Performed By: #### L 100.0100, L500.4050, L510 ####[facility] [address] [place], [address] IG% 2.300 High 0.0-0.9 [facility] Comment on above: Result Comment: IG% - Immature Granulocytes (promyelocytes, myelocytes andmetamyelocytes) > 1% indicates that a LEFT SHIFT is Present. Performed By: #### L 100.0100, L500.4050, L510 ####[facility] [address] [place], [address] Lymphocytes/100 WBC (Bld) 15.9 % Low 19-41 [facility] Comment on above: Performed By: #### L 100.0100, L500.4050, L5.10 ####[facility] [address] [place], [address] MCH (RBC) [Entitic mass] 28.9 pg Normal 27.0-32.0 [facility] Comment on above: Performed By: #### L 100.0100, L500.4050, L501.6710 ####[facility] [address] [place], [address] MCHC (RBC) [Mass/Vol] 33.6 g/dL Normal 32-36 [facility] Comment on above: Performed By: #### L 100.0100, L500.4050, L501.6710 ####[facility] [address] [place], [address] MCV (RBC) [Entitic vol] 86.1 fL Normal 81-99 [facility] Comment on above: Performed By: #### L 100.0100, L500.4050, L501.6710 ####[facility] [address] [place], [address] Monocytes/100 WBC (Bld) 8.0 % Normal 0-10 [facility] Comment on above: Performed By: #### L 100.0100, L500.4050, L501.6710 ####[facility] [address] [place], [address] Neutrophils/100 WBC (Bld) 73.3 % High 47-70 [facility] Comment on above: Performed By: #### L 100.0100, L500.4050, L501.6710 ####[facility] [address] [place], [address] Nucleated RBC (Bld) [#/Vol] 0 10*3/uL Normal 0-5 [facility] Comment on above: Performed By: #### L 100.0100, L500.4050, L501.6710 ####[facility] [address] [place], [address] Platelet mean volume (Bld) [Entitic vol] 9.5 fL Normal 6.2-12.0 [facility] Comment on above: Performed By: #### L 100.0100, L500.4050, L501.6710 ####[facility] [address] [place], [address] Platelets (Bld) [#/Vol] 388 10*3/uL Normal 150-450 [facility] Comment on above: Performed By: #### L 100.0100, L500.4050, L501.6710 ####[facility] [address] [place], [address] RBC (Bld) [#/Vol] 4.25 10*6/uL Normal 4.2-5.4 [facility] Comment on above: Performed By: #### L 100.0100, L500.4050, L501.6710 ####[facility] [address] [place], [address] RDW SD 43.8 fl Normal 35.1-43.9 [facility] Comment on above: Performed By: #### L 100.0100, L500.4050, L501.6710 ####[facility] [address] [place], [address] WBC (Bld) [#/Vol] 13.3 10*3/uL High 4.4-11.0 [facility] Comment on above: Performed By: #### L 100.0100, L500.4050, L501.6710 ####[facility] [address] [place], [address] Absolute Neut Normal 2.0-7.7 [facility] Comment on above: Result Comment: LABS ARE ON THE OTHER REQ Performed By: #### L 500.4050, L100.0100, L7000.0700 ####[facility] [address] [place], [address] HCT Normal 37-47 [facility] Comment on above: Result Comment: LABS ARE ON THE OTHER REQ Performed By: #### L 500.4050, L100.0100, L7000.0700 ####[facility] [address] [place], [address] HGB Normal 12.0-15.0 [facility] Comment on above: Result Comment: LABS ARE ON THE OTHER REQ Performed By: #### L 500.4050, L100.0100, L7000.0700 ####[facility] [address] [place], [address] MCH Normal 27.0-32.0 [facility] Comment on above: Result Comment: LABS ARE ON THE OTHER REQ Performed By: #### L 500.4050, L100.0100, L7000.0700 ####[facility] [address] [place], [address] MCHC Normal 32-36 [facility] Comment on above: Result Comment: LABS ARE ON THE OTHER REQ Performed By: #### L 500.4050, L100.0100, L7000.0700 ####[facility] [address] [place], [address] MCV Normal 81-99 [facility] Comment on above: Result Comment: LABS ARE ON THE OTHER REQ Performed By: #### L 500.4050, L100.0100, L7000.0700 ####[facility] [address] [place], [address] NEUT% Normal 47-70 [facility] Comment on above: Result Comment: LABS ARE ON THE OTHER REQ Performed By: #### L 500.4050, L100.0100, L7000.0700 ####[facility] [address] [place], [address] PLT Normal 150-450 [facility] Comment on above: Result Comment: LABS ARE ON THE OTHER REQ Performed By: #### L 500.4050, L100.0100, L7000.0700 ####[facility] [address] [place], [address] RBC Normal 4.2-5.4 [facility] Comment on above: Result Comment: LABS ARE ON THE OTHER REQ Performed By: #### L 500.4050, L100.0100, L7000.0700 ####[facility] [address] [place], [address] RDW CV Normal 11.6-14.6 [facility] Comment on above: Result Comment: LABS ARE ON THE OTHER REQ Performed By: #### L 500.4050, L100.0100, L7000.0700 ####[facility] [address] [place], [address] RDW SD Normal 35.1-43.9 [facility] Comment on above: Result Comment: LABS ARE ON THE OTHER REQ Performed By: #### L 500.4050, L100.0100, L7000.0700 ####[facility] [address] [place], [address] WBC Normal 4.4-11.0 [facility] Comment on above: Result Comment: LABS ARE ON THE OTHER REQ Performed By: #### L 500.4050, L100.0100, L7000.0700 ####[facility] [address] [place], [address] Absolute Neut Normal 2.0-7.7 [facility] Comment on above: Result Comment: Canc elled via OM: Order cancelled - Patient discharged Performed By: #### L 500.2500, L100.0100 ####[facility] [address] [place], [address] HCT Normal 37-47 [facility] Comment on above: Result Comment: Canc elled via OM: Order cancelled - Patient discharged Performed By: #### L 500.2500, L100.0100 ####[facility] [address] [place], [address] HGB Normal 12.0-15.0 [facility] Comment on above: Result Comment: Canc elled via OM: Order cancelled - Patient discharged Performed By: #### L 500.2500, L100.0100 ####[facility] [address] [place], [address] MCH Normal 27.0-32.0 [facility] Comment on above: Result Comment: Canc elled via OM: Order cancelled - Patient discharged Performed By: #### L 500.2500, L100.0100 ####[facility] [address] [place], [address] MCHC Normal 32-36 [facility] Comment on above: Result Comment: Canc elled via OM: Order cancelled - Patient discharged Performed By: #### L 500.2500, L100.0100 ####[facility] [address] [place], [address] MCV Normal 81-99 [facility] Comment on above: Result Comment: Canc elled via OM: Order cancelled - Patient discharged Performed By: #### L 500.2500, L100.0100 ####[facility] [address] [place], [address] NEUT% Normal 47-70 [facility] Comment on above: Result Comment: Canc elled via OM: Order cancelled - Patient discharged Performed By: #### L 500.2500, L100.0100 ####[facility] [address] [place], [address] PLT Normal 150-450 [facility] Comment on above: Result Comment: Canc elled via OM: Order cancelled - Patient discharged Performed By: #### L 500.2500, L100.0100 ####[facility] [address] [place], [address] RBC Normal 4.2-5.4 [facility] Comment on above: Result Comment: Canc elled via OM: Order cancelled - Patient discharged Performed By: #### L 500.2500, L100.0100 ####[facility] [address] [place], [address] RDW CV Normal 11.6-14.6 [facility] Comment on above: Result Comment: Canc elled via OM: Order cancelled - Patient discharged Performed By: #### L 500.2500, L100.0100 ####[facility] [address] [place], [address] RDW SD Normal 35.1-43.9 [facility] Comment on above: Result Comment: Canc elled via OM: Order cancelled - Patient discharged Performed By: #### L 500.2500, L100.0100 ####[facility] [address] [place], [address] WBC Normal 4.4-11.0 [facility] Comment on above: Result Comment: Canc elled via OM: Order cancelled - Patient discharged Performed By: #### L 500.2500, L100.0100 ####[facility] [address] [place], [address] CRPon 05-15-2024 C-REACTIVE PROT 5.54 mg/L High 0.0-3.0 [facility] Comment on above: Performed By: #### L 100.0100, L500.4050, L501.6710 ####[facility] [address] [place], [address] CRP [Mass/Vol]Ordered By: Jonatan Caruso on 05-15-2024 C-Reactive Protein Extended Range 5.54 mg/L High 0.0-3.0 [facility] Calprotectin stoolOrdered By : Ashley Caruso on 05-15-2024 Stool Calprotectin 52 ug/g 0-120 [facility] Comment on above: Concentration Interp retation Follow-Up< 5 - 50 ug/g Normal None>50 -120 ug/g Borderline Re-evaluate in 4-6 weeks >120 ug/g Abnormal Repeat as clinically indicatedPerformed at: - [facility] [address] [place] [id number] Director: Bettina Jimenez MD, Phone: [phone] Carbon dioxide, total [Moles /volume] in Central venous bloodOrdered By: Ashley Caruso on 05-15-2024 CO2 [Moles/Vol] 22.7 mmol/L 21.0-32.0 [facility] Chloride assayOrdered By: Jonatan Caruso on 05-15-2024 Chloride [Moles/Vol] 109 mmol/L High 98-108 [facility] Comprehensive Metabolic Prof ilon 05-15-2024 Albumin [Mass/Vol] 3.6 g/dL Normal 3.5-5.0 [facility] Comment on above: Performed By: #### L 100.0100, L500.4050, L501.6710 ####[facility] [address] [place], [address] Albumin/Globulin [Mass ratio] 1.3 {ratio} Normal 0.9-2.4 [facility] Comment on above: Performed By: #### L 100.0100, L500.4050, L501.6710 ####[facility] [address] [place], [address] ALK PHOS 96 U/L Normal 35-104 [facility] Comment on above: Performed By: #### L 100.0100, L500.4050, L501.6710 ####[facility] [address] [place], [address] ALT [Catalytic activity/Vol] 60 U/L High <=34 [facility] Comment on above: Performed By: #### L 100.0100, L500.4050, L501.6710 ####[facility] [address] [place], [address] AST [Catalytic activity/Vol] 57 U/L High <=31 [facility] Comment on above: Performed By: #### L 100.0100, L500.4050, L501.6710 ####[facility] [address] [place], [address] Bilirubin [Mass/Vol] 0.20 mg/dL Normal 0.00-1.30 [facility] Comment on above: Performed By: #### L 100.0100, L500.4050, L501.6710 ####[facility] [address] [place], [address] BUN/CRE 10.7 RATIO Normal 10-20 [facility] Comment on above: Performed By: #### L 100.0100, L500.4050, L501.6710 ####[facility] [address] [place], [address] Calcium [Mass/Vol] 8.8 mg/dL Normal 7.6-11.0 [facility] Comment on above: Performed By: #### L 100.0100, L500.4050, L501.6710 ####[facility] [address] [place], [address] Chloride [Moles/Vol] 109 mmol/L High 98-108 [facility] Comment on above: Performed By: #### L 100.0100, L500.4050, L501.6710 ####[facility] [address] [place], [address] CO2 [Moles/Vol] 22.7 mmol/L Normal 21.0-32.0 [facility] Comment on above: Performed By: #### L 100.0100, L500.4050, L501.6710 ####[facility] [address] [place], [address] Creatinine [Mass/Vol] 1.18 mg/dL Normal 0.70-1.20 [facility] Comment on above: Performed By: #### L 100.0100, L500.4050, L501.6710 ####[facility] [address] [place], [address] GAP 12 Normal 5-15 [facility] Comment on above: Performed By: #### L 100.0100, L500.4050, L501.6710 ####[facility] [address] [place], [address] GFR/1.73 sq M.predicted among non-blacks MDRD (S/P/Bld) [Vol rate/Area] 61 mL/min/{1.73_m2} Normal >60 [facility] Comment on above: Result Comment: mL/m in/1.73m2 CKD-EPI Creatinine Equation (2020) Performed By: #### L 100.0100, L500.4050, L501.6710 ####[facility] [address] [place], [address] Globulin (S) [Mass/Vol] 2.7 g/dL Normal 2.2-4.2 [facility] Comment on above: Performed By: #### L 100.0100, L500.4050, L501.6710 ####[facility] [address] [place], [address] Glucose [Mass/Vol] 83 mg/dL Normal 70-99 [facility] Comment on above: Performed By: #### L 100.0100, L500.4050, L501.6710 ####[facility] [address] [place], [address] Potassium [Moles/Vol] 3.3 mmol/L Normal 3.3-5.1 [facility] Comment on above: Performed By: #### L 100.0100, L500.4050, L501.6710 ####[facility] [address] [place], [address] Sodium [Moles/Vol] 143 mmol/L Normal 133-145 [facility] Comment on above: Performed By: #### L 100.0100, L500.4050, L501.6710 ####[facility] [address] [place], [address] T PROT 6.3 g/dL Normal 5.9-8.4 [facility] Comment on above: Performed By: #### L 100.0100, L500.4050, L501.6710 ####[facility] [address] [place], [address] Urea nitrogen [Mass/Vol] 13 mg/dL Normal 4-19 [facility] Comment on above: Performed By: #### L 100.0100, L500.4050, L501.6710 ####[facility] [address] [place], [address] ALB Normal 3.5-5.0 [facility] Comment on above: Result Comment: LABS ARE ON THE OTHER REQ Performed By: #### L 500.4050, L100.0100, L7000.0700 ####[facility] [address] [place], [address] ALK PHOS Normal 35-104 [facility] Comment on above: Result Comment: LABS ARE ON THE OTHER REQ Performed By: #### L 500.4050, L100.0100, L7000.0700 ####[facility] [address] [place], [address] ALT Normal <=34 [facility] Comment on above: Result Comment: LABS ARE ON THE OTHER REQ Performed By: #### L 500.4050, L100.0100, L7000.0700 ####[facility] [address] [place], [address] AST Normal <=31 [facility] Comment on above: Result Comment: LABS ARE ON THE OTHER REQ Performed By: #### L 500.4050, L100.0100, L7000.0700 ####[facility] [address] [place], [address] BUN Normal 4-19 [facility] Comment on above: Result Comment: LABS ARE ON THE OTHER REQ Performed By: #### L 500.4050, L100.0100, L7000.0700 ####[facility] [address] [place], [address] BUN/CRE Normal 10-20 [facility] Comment on above: Result Comment: LABS ARE ON THE OTHER REQ Performed By: #### L 500.4050, L100.0100, L7000.0700 ####[facility] [address] [place], [address] Calcium Normal 7.6-11.0 [facility] Comment on above: Result Comment: LABS ARE ON THE OTHER REQ Performed By: #### L 500.4050, L100.0100, L7000.0700 ####[facility] [address] [place], [address] CL Normal 98-108 [facility] Comment on above: Result Comment: LABS ARE ON THE OTHER REQ Performed By: #### L 500.4050, L100.0100, L7000.0700 ####[facility] [address] [place], [address] CO2 Normal 21.0-32.0 [facility] Comment on above: Result Comment: LABS ARE ON THE OTHER REQ Performed By: #### L 500.4050, L100.0100, L7000.0700 ####[facility] [address] [place], [address] CREAT,SERUM Normal 0.70-1.20 [facility] Comment on above: Result Comment: LABS ARE ON THE OTHER REQ Performed By: #### L 500.4050, L100.0100, L7000.0700 ####[facility] [address] [place], [address] eGFR Normal >60 [facility] Comment on above: Result Comment: LABS ARE ON THE OTHER REQ Performed By: #### L 500.4050, L100.0100, L7000.0700 ####[facility] [address] [place], [address] GAP Normal 5-15 [facility] Comment on above: Result Comment: LABS ARE ON THE OTHER REQ Performed By: #### L 500.4050, L100.0100, L7000.0700 ####[facility] [address] [place], [address] GLU Normal 70-99 [facility] Comment on above: Result Comment: LABS ARE ON THE OTHER REQ Performed By: #### L 500.4050, L100.0100, L7000.0700 ####[facility] [address] [place], [address] Potassium Normal 3.3-5.1 [facility] Comment on above: Result Comment: LABS ARE ON THE OTHER REQ Performed By: #### L 500.4050, L100.0100, L7000.0700 ####[facility] [address] [place], [address] T BILI Normal 0.00-1.30 [facility] Comment on above: Result Comment: LABS ARE ON THE OTHER REQ Performed By: #### L 500.4050, L100.0100, L7000.0700 ####[facility] [address] [place], [address] T PROT Normal 5.9-8.4 [facility] Comment on above: Result Comment: LABS ARE ON THE OTHER REQ Performed By: #### L 500.4050, L100.0100, L7000.0700 ####[facility] [address] [place], [address] Comprehensive Metabolic Profil Normal 133-145 [facility] Comment on above: Result Comment: LABS ARE ON THE OTHER REQ Performed By: #### L 500.4050, L100.0100, L7000.0700 ####[facility] [address] [place], [address] Culture, Throaton 05-15-2024 CUT Normal throat franny isolated. No beta-hemolytic streptococcus isolated. Normal [facility] Comment on above: Performed By: #### M 100.1000 ####[facility] [address] [place], [address] Eosinophil percentageOrdered By: Ashley Caruso on 05-15-2024 Eosinophils/100 WBC (Bld) 0.1 % 0-5 [facility] Erythrocyte distribution wid th ratioOrdered By: Ashley Caruso on 05-15-2024 Erythrocyte distribution width (RBC) [Ratio] 14.4 % 11.6-14.6 [facility] Erythrocyte distribution wid th standard deviationOrdered By: Ashley Caruso on 05-15-2024 Erythrocyte distribution width (RBC) [Entitic vol] 43.8 fL 35.1-43.9 [facility] GFR/1.73 sq M.predicted stefano g non-blacks MDRD (S/P/Bld) [Vol rate/Area]Ordered By: Ashley Caruso on 05-15-2024 Estimated GFR (MDRD) Non-Af Amer 61 >60 [facility] Comment on above: mL/min/1.73m2 CKD-EP I Creatinine Equation (2020) Gastroenterology Visit Repor ton 05-15-2024 Gastroenterology Visit Report Normal [facility] Hematocrit Auto (Bld) [Volum e fraction]Ordered By: Ashley Caruso on 05-15-2024 Hematocrit (Bld) [Volume fraction] 36.6 % Low 37-47 [facility] Hemoglobin measurementOrdere d By: Ashley Caruso on 05-15-2024 Hemoglobin (Bld) [Mass/Vol] 12.3 g/dL 12.0-15.0 [facility] Immature granulocytes/100 WB C Auto (Bld)Ordered By: Ashley Caruso on 05-15-2024 Immature granulocytes/100 WBC (Bld) 2.300 % High 0.0-0.9 [facility] Comment on above: IG% - Immature Granu locytes (promyelocytes, myelocytes and metamyelocytes) > 1% indicates that a LEFT SHIFT is Present. Laboratory - Chemistry and C hemistry - challengeOrdered By: Ashley Caruso on 05-15-2024 AST [Catalytic activity/Vol] 57 U/L High <32 [facility] Lymphocytes Auto (Unsp spec) [#/Vol]Ordered By: Ashley Caruso on 05-15-2024 Lymphocytes (Bld) [#/Vol] 2.12 10*3/uL 0.83-4.51 [facility] Lymphocytes/100 WBC Auto (Un sp spec)Ordered By: Ashley Caruso on 05-15-2024 Lymphocytes/100 WBC (Bld) 15.9 % Low 19-41 [facility] MCV (mean corpuscular volume ) determinationOrdered By: Ashley Caruso on 05-15-2024 MCV (RBC) [Entitic vol] 86.1 fL 81-99 [facility] Mean corpuscular hemoglobin (MCH) determinationOrdered By: Ashley Caruso on 05-15-2024 MCH (RBC) [Entitic mass] 28.9 pg 27.0-32.0 [facility] Mean corpuscular hemoglobin concentration (MCHC) determinationOrdered By: Ashley Caruso on 05-15-2024 MCHC (RBC) [Mass/Vol] 33.6 g/dL 32-36 [facility] Mean platelet volume determi nationOrdered By: Ashley Caruso on 05-15-2024 Platelet mean volume (Bld) [Entitic vol] 9.5 fL 6.2-12.0 [facility] Monocyte percentageOrdered B y: Ashley Caruso on 05-15-2024 Monocytes/100 WBC (Bld) 8.0 % 0-10 [facility] Neutrophil percentageOrdered By: Ashley Caruso on 05-15-2024 Neutrophils/100 WBC (Bld) 73.3 % High 47-70 [facility] Nucleated red blood cell per centageOrdered By: Ashley Caruso on 05-15-2024 Nucleated RBC/100 WBC (Bld) [Ratio] 0 % 0-5 [facility] Platelet countOrdered By: Jonatan Caruso on 05-15-2024 Platelets (Bld) [#/Vol] 388 10*3/uL 150-450 [facility] Potassium (Unsp spec) [Mass/ Vol]Ordered By: Ashley Caruso on 05-15-2024 Potassium [Moles/Vol] 3.3 mmol/L 3.3-5.1 [facility] RBC Auto (Bld) [#/Vol]Ordere d By: Ashley Caruso on 05-15-2024 RBC (Bld) [#/Vol] 4.25 10*6/uL 4.2-5.4 [facility] Serum creatinine measurement (mass/volume)Ordered By: Ashley Caruso on 05-15-2024 Creatinine [Mass/Vol] 1.18 mg/dL 0.70-1.20 [facility] Serum globulin measurementOr dered By: Ashley Caruso on 05-15-2024 Globulin (S) [Mass/Vol] 2.7 g/dL 2.2-4.2 [facility] Serum glucose measurement (m ass/volume)Ordered By: Ashley Caruso on 05-15-2024 Glucose [Mass/Vol] 83 mg/dL 70-99 [facility] Serum or plasma alanine mendieta otransferase (ALT) measurementOrdered By: Ashley Caruso on 05-15-2024 ALT [Catalytic activity/Vol] 60 U/L High <35 [facility] Serum or plasma albumin joselyn urement (mass/volume)Ordered By: Ashley Caruso on 05-15-2024 Albumin [Mass/Vol] 3.6 g/dL 3.5-5.0 [facility] Serum or plasma albumin/glob ulin mass ratioOrdered By: Ashley Caruso on 05-15-2024 Albumin/Globulin [Mass ratio] 1.3 {ratio} 0.9-2.4 [facility] Serum or plasma alkaline samantha sphatase measurementOrdered By: Ashley Caruso on 05-15-2024 ALP [Catalytic activity/Vol] 96 U/L 35-104 [facility] Serum or plasma calcium joselyn urement (mass/volume)Ordered By: Ashley Caruso on 05-15-2024 Calcium [Mass/Vol] 8.8 mg/dL 7.6-11.0 [facility] Serum or plasma urea nitroge n measurement (mass/volume)Ordered By: Ashley Caruso on 05-15-2024 Urea nitrogen [Mass/Vol] 13 mg/dL 4-19 [facility] Sodium levelOrdered By: Norma Caruso on 05-15-2024 Sodium [Moles/Vol] 143 mmol/L 133-145 [facility] Total proteinOrdered By: Ivette Caruso on 05-15-2024 Protein [Mass/Vol] 6.3 g/dL 5.9-8.4 [facility] White blood cell (WBC) count Ordered By: Ashley Caruso on 05-15-2024 WBC (Bld) [#/Vol] 13.3 10*3/uL High 4.4-11.0 [facility] Absolute neutrophil countOrd ered By: Yousuf Pleitez on 05-14-2024 Neutrophils (Bld) [#/Vol] 16.8 10*3/uL High 2.0-7.7 [facility] Anion gap in Serum or Plasma Ordered By: Yousuf Pleitez on 05-14-2024 Anion gap [Moles/Vol] 13 mmol/L 5-15 [facility] BUN/creatinine ratioOrdered By: Yousuf Pleitez on 05-14-2024 Urea nitrogen/Creatinine [Mass ratio] 9.8 mg/mg Low 10-20 [facility] Basic Metabolic Profile (BMP )on 05-14-2024 BUN/CRE 9.8 RATIO Low 10-20 [facility] Comment on above: Performed By: #### L 100.0100, L500.2500 ####[facility] [address] [place], [place], [id number] Calcium [Mass/Vol] 8.2 mg/dL Normal 7.6-11.0 [facility] Comment on above: Performed By: #### L 100.0100, L500.2500 ####[facility] [address] [place], [address] Chloride [Moles/Vol] 109 mmol/L High 98-108 [facility] Comment on above: Performed By: #### L 100.0100, L500.2500 ####[facility] [address] [place], [address] CO2 [Moles/Vol] 16.8 mmol/L Low 21.0-32.0 [facility] Comment on above: Performed By: #### L 100.0100, L500.2500 ####[facility] [address] [place], [address] Creatinine [Mass/Vol] 1.08 mg/dL Normal 0.70-1.20 [facility] Comment on above: Performed By: #### L 100.0100, L500.2500 ####[facility] [address] [place], [address] ECRCL 40.42 ml/min Low 50-250 [facility] Comment on above: Performed By: #### L 100.0100, L500.2500 ####[facility] [address] [place], [address] GAP 13 Normal 5-15 [facility] Comment on above: Performed By: #### L 100.0100, L500.2500 ####[facility] [address] [place], [address] GFR/1.73 sq M.predicted among non-blacks MDRD (S/P/Bld) [Vol rate/Area] 68 mL/min/{1.73_m2} Normal >60 [facility] Comment on above: Result Comment: mL/m in/1.73m2 CKD-EPI Creatinine Equation (2020) Performed By: #### L 100.0100, L500.2500 ####[facility] [address] [place], [address] Glucose [Mass/Vol] 124 mg/dL High 70-99 [facility] Comment on above: Performed By: #### L 100.0100, L500.2500 ####[facility] [address] [place], [address] Potassium [Moles/Vol] 3.3 mmol/L Normal 3.3-5.1 [facility] Comment on above: Performed By: #### L 100.0100, L500.2500 ####[facility] [address] [place], [address] Sodium [Moles/Vol] 138 mmol/L Normal 133-145 [facility] Comment on above: Performed By: #### L 100.0100, L500.2500 ####[facility] [address] [place], [address] Urea nitrogen [Mass/Vol] 11 mg/dL Normal 4-19 [facility] Comment on above: Performed By: #### L 100.0100, L500.2500 ####[facility] [address] [place], [address] Basophil percentageOrdered B y: Yousufgiacomo Pleitez on 05-14-2024 Basophils/100 WBC (Bld) 0.2 % 0-1 [facility] CBC W/Diff, Automatedon Absolute Lymph 1.14 X10 3/uL Normal 0.83-4.51 [facility] Comment on above: Performed By: #### L 100.0100, L500.2500 ####[facility] [address] [place], [address] Absolute Neut 16.8 X10 3/uL High 2.0-7.7 [facility] Comment on above: Performed By: #### L 100.0100, L500.2500 ####[facility] [address] [place], [address] Basophils/100 WBC (Bld) 0.2 % Normal 0-1 [facility] Comment on above: Performed By: #### L 100.0100, L500.2500 ####[facility] [address] [place], [address] Eosinophils/100 WBC (Bld) 0.0 % Normal 0-5 [facility] Comment on above: Performed By: #### L 100.0100, L500.2500 ####[facility] [address] [place], [address] Erythrocyte distribution width (RBC) [Ratio] 13.6 % Normal 11.6-14.6 [facility] Comment on above: Performed By: #### L 100.0100, L500.2500 ####[facility] [address] [place], [address] Hematocrit (Bld) [Volume fraction] 33.7 % Low 37-47 [facility] Comment on above: Performed By: #### L 100.0100, L500.2500 ####[facility] [address] [place], [address] Hemoglobin (Bld) [Mass/Vol] 11.5 g/dL Low 12.0-15.0 [facility] Comment on above: Performed By: #### L 100.0100, L500.2500 ####[facility] [address] [place], [address] IG% 1.800 High 0.0-0.9 [facility] Comment on above: Result Comment: IG% - Immature Granulocytes (promyelocytes, myelocytes andmetamyelocytes) > 1% indicates that a LEFT SHIFT is Present. Performed By: #### L 100.0100, L500.2500 ####[facility] [address] [place], [address] Lymphocytes/100 WBC (Bld) 6.1 % Low 19-41 [facility] Comment on above: Performed By: #### L 100.0100, L500.2500 ####[facility] [address] [place], [address] MCH (RBC) [Entitic mass] 28.8 pg Normal 27.0-32.0 [facility] Comment on above: Performed By: #### L 100.0100, L500.2500 ####[facility] [address] [place], [address] MCHC (RBC) [Mass/Vol] 34.1 g/dL Normal 32-36 [facility] Comment on above: Performed By: #### L 100.0100, L500.2500 ####[facility] [address] [place], [address] MCV (RBC) [Entitic vol] 84.3 fL Normal 81-99 [facility] Comment on above: Performed By: #### L 100.0100, L500.2500 ####[facility] [address] [place], [address] Monocytes/100 WBC (Bld) 2.7 % Normal 0-10 [facility] Comment on above: Performed By: #### L 100.0100, L500.2500 ####[facility] [address] [place], [address] Neutrophils/100 WBC (Bld) 89.2 % High 47-70 [facility] Comment on above: Performed By: #### L 100.0100, L500.2500 ####[facility] [address] [place], [address] Nucleated RBC (Bld) [#/Vol] 0 10*3/uL Normal 0-5 [facility] Comment on above: Performed By: #### L 100.0100, L500.2500 ####[facility] [address] [place], [address] Platelet mean volume (Bld) [Entitic vol] 9.6 fL Normal 6.2-12.0 [facility] Comment on above: Performed By: #### L 100.0100, L500.2500 ####[facility] [address] [place], [address] Platelets (Bld) [#/Vol] 365 10*3/uL Normal 150-450 [facility] Comment on above: Performed By: #### L 100.0100, L500.2500 ####[facility] [address] [place], [address] RBC (Bld) [#/Vol] 4.00 10*6/uL Low 4.2-5.4 [facility] Comment on above: Performed By: #### L 100.0100, L500.2500 ####[facility] [address] [place], [address] RDW SD 41.2 fl Normal 35.1-43.9 [facility] Comment on above: Performed By: #### L 100.0100, L500.2500 ####[facility] [address] [place], [address] WBC (Bld) [#/Vol] 18.8 10*3/uL High 4.4-11.0 [facility] Comment on above: Performed By: #### L 100.0100, L500.2500 ####[facility] [address] [place], [address] Carbon dioxide, total [Moles /volume] in Central venous bloodOrdered By: Yousuf Pleitez on 05-14-2024 CO2 [Moles/Vol] 16.8 mmol/L Low 21.0-32.0 [facility] Chloride assayOrdered By: Ibeth Pleitez on 05-14-2024 Chloride [Moles/Vol] 109 mmol/L High 98-108 [facility] Discharge Instructionon Discharge Instruction Normal [facility] Eosinophil percentageOrdered By: Yousuf Pleitez on 05-14-2024 Eosinophils/100 WBC (Bld) 0.0 % 0-5 [facility] Erythrocyte distribution wid th ratioOrdered By: Yousuf Pleitez on 05-14-2024 Erythrocyte distribution width (RBC) [Ratio] 13.6 % 11.6-14.6 [facility] Erythrocyte distribution wid th standard deviationOrdered By: Yousuf Pleitez on 05-14-2024 Erythrocyte distribution width (RBC) [Entitic vol] 41.2 fL 35.1-43.9 [facility] Estimation of creatinine asmmie aranceOrdered By: Yousuf Pleitez on 05-14-2024 Estimated Creatinine Clearance Calc 40.42 ml/min Low 50-250 [facility] GFR/1.73 sq M.predicted stefano g non-blacks MDRD (S/P/Bld) [Vol rate/Area]Ordered By: Yousuf Pleitez on 05-14-2024 Estimated GFR (MDRD) Non-Af Amer 68 >60 [facility] Comment on above: mL/min/1.73m2 CKD-EP I Creatinine Equation (2020) Hematocrit Auto (Bld) [Volum e fraction]Ordered By: Yousuf Pleitez on 05-14-2024 Hematocrit (Bld) [Volume fraction] 33.7 % Low 37-47 [facility] Hemoglobin measurementOrdere d By: Yousuf Pleitez on 05-14-2024 Hemoglobin (Bld) [Mass/Vol] 11.5 g/dL Low 12.0-15.0 [facility] Immature granulocytes/100 WB C Auto (Bld)Ordered By: Yousuf Pleitez on 05-14-2024 Immature granulocytes/100 WBC (Bld) 1.800 % High 0.0-0.9 [facility] Comment on above: IG% - Immature Granu locytes (promyelocytes, myelocytes and metamyelocytes) > 1% indicates that a LEFT SHIFT is Present. Lymphocytes Auto (Unsp spec) [#/Vol]Ordered By: Yousuf Pleitez on 05-14-2024 Lymphocytes (Bld) [#/Vol] 1.14 10*3/uL 0.83-4.51 [facility] Lymphocytes/100 WBC Auto (Un sp spec)Ordered By: Yousuf Pleitez on 05-14-2024 Lymphocytes/100 WBC (Bld) 6.1 % Low 19-41 [facility] MCV (mean corpuscular volume ) determinationOrdered By: Yousuf Pleitez on 05-14-2024 MCV (RBC) [Entitic vol] 84.3 fL 81-99 [facility] Mean corpuscular hemoglobin (MCH) determinationOrdered By: Yousuf Pleitez on 05-14-2024 MCH (RBC) [Entitic mass] 28.8 pg 27.0-32.0 [facility] Mean corpuscular hemoglobin concentration (MCHC) determinationOrdered By: Yousuf Pleitez on 05-14-2024 MCHC (RBC) [Mass/Vol] 34.1 g/dL 32-36 [facility] Mean platelet volume determi nationOrdered By: Yousuf Pleitez on 05-14-2024 Platelet mean volume (Bld) [Entitic vol] 9.6 fL 6.2-12.0 [facility] Monocyte percentageOrdered B y: Yousuf Pleitez on 05-14-2024 Monocytes/100 WBC (Bld) 2.7 % 0-10 [facility] Neutrophil percentageOrdered By: Yousuf Pleitez on 05-14-2024 Neutrophils/100 WBC (Bld) 89.2 % High 47-70 [facility] Nucleated red blood cell per centageOrdered By: Yousuf Pleitez on 05-14-2024 Nucleated RBC/100 WBC (Bld) [Ratio] 0 % 0-5 [facility] Platelet countOrdered By: Ibeth Pleitez on 05-14-2024 Platelets (Bld) [#/Vol] 365 10*3/uL 150-450 [facility] Potassium (Unsp spec) [Mass/ Vol]Ordered By: Yousuf Pleitez on 05-14-2024 Potassium [Moles/Vol] 3.3 mmol/L 3.3-5.1 [facility] RBC Auto (Bld) [#/Vol]Ordere d By: Yousuf Pleitez on 05-14-2024 RBC (Bld) [#/Vol] 4.00 10*6/uL Low 4.2-5.4 [facility] Serum creatinine measurement (mass/volume)Ordered By: Yousuf Pleitez on 05-14-2024 Creatinine [Mass/Vol] 1.08 mg/dL 0.70-1.20 [facility] Serum glucose measurement (m ass/volume)Ordered By: Yousuf Pleitez on 05-14-2024 Glucose [Mass/Vol] 124 mg/dL High 70-99 [facility] Serum or plasma calcium joselyn urement (mass/volume)Ordered By: Yousuf Pleitez on 05-14-2024 Calcium [Mass/Vol] 8.2 mg/dL 7.6-11.0 [facility] Serum or plasma urea nitroge n measurement (mass/volume)Ordered By: Yousuf Pleitez on 05-14-2024 Urea nitrogen [Mass/Vol] 11 mg/dL 4-19 [facility] Sodium levelOrdered By: Zeinab Pleitez on 05-14-2024 Sodium [Moles/Vol] 138 mmol/L 133-145 [facility] White blood cell (WBC) count Ordered By: Yousuf Pleitez on 05-14-2024 WBC (Bld) [#/Vol] 18.8 10*3/uL High 4.4-11.0 [facility] Base excess Calc (BldV) [Mol es/Vol]Ordered By: Rudi Chiu on 05-13-2024 Venous Blood Base Excess -13 mmol/L Low -1.0-3.5 [facility] Basic Metabolic Profile (BMP )on 05-13-2024 BUN/CRE 13.7 RATIO Normal 10-20 [facility] Comment on above: Performed By: #### L 100.0100, L501.9520, L500.2500 ####[facility] [address] [place], [address] Calcium [Mass/Vol] 7.9 mg/dL Normal 7.6-11.0 [facility] Comment on above: Performed By: #### L 100.0100, L501.9520, L500.2500 ####[facility] [address] [place], [address] Chloride [Moles/Vol] 112 mmol/L High 98-108 [facility] Comment on above: Performed By: #### L 100.0100, L501.9520, L500.2500 ####[facility] [address] [place], [address] CO2 [Moles/Vol] 11.3 mmol/L Low 21.0-32.0 [facility] Comment on above: Performed By: #### L 100.0100, L501.9520, L500.2500 ####[facility] [address] [place], [address] Creatinine [Mass/Vol] 1.12 mg/dL Normal 0.70-1.20 [facility] Comment on above: Performed By: #### L 100.0100, L501.9520, L500.2500 ####[facility] [address] [place], [address] ECRCL 38.98 ml/min Low 50-250 [facility] Comment on above: Performed By: #### L 100.0100, L501.9520, L500.2500 ####[facility] [address] [place], [address] GAP 12 Normal 5-15 [facility] Comment on above: Performed By: #### L 100.0100, L501.9520, L500.2500 ####[facility] [address] [place], [address] GFR/1.73 sq M.predicted among non-blacks MDRD (S/P/Bld) [Vol rate/Area] 65 mL/min/{1.73_m2} Normal >60 [facility] Comment on above: Result Comment: mL/m in/1.73m2 CKD-EPI Creatinine Equation (2020) Performed By: #### L 100.0100, L501.9520, L500.2500 ####[facility] [address] [place], [address] Glucose [Mass/Vol] 105 mg/dL High 70-99 [facility] Comment on above: Performed By: #### L 100.0100, L501.9520, L500.2500 ####[facility] [address] [place], [address] Potassium [Moles/Vol] 3.9 mmol/L Normal 3.3-5.1 [facility] Comment on above: Performed By: #### L 100.0100, L501.9520, L500.2500 ####[facility] [address] [place], [address] Sodium [Moles/Vol] 135 mmol/L Normal 133-145 [facility] Comment on above: Performed By: #### L 100.0100, L501.9520, L500.2500 ####[facility] [address] [place], [address] Urea nitrogen [Mass/Vol] 15 mg/dL Normal 4-19 [facility] Comment on above: Performed By: #### L 100.0100, L501.9520, L500.2500 ####[facility] [address] [place], [address] Bilirubin directOrdered By: Rudi Chiu on 05-13-2024 Bilirubin.direct [Mass/Vol] 0.17 mg/dL 0.00-0.30 [facility] Bilirubin, totalOrdered By: Rudi Chiu on 05-13-2024 Bilirubin [Mass/Vol] 0.35 mg/dL 0.00-1.30 [facility] Blood cultureOrdered By: Kerry Almaraz on 05-13-2024 Bacteria identified Cx Nom (Bld) No growth in 5 days. [facility] CBC W/Diff, Automatedon Absolute Lymph 0.79 X10 3/uL Low 0.83-4.51 [facility] Comment on above: Performed By: #### L 100.0100, L501.9520, L500.2500 ####[facility] [address] [place], [address] Absolute Neut 15.5 X10 3/uL High 2.0-7.7 [facility] Comment on above: Performed By: #### L 100.0100, L501.9520, L500.2500 ####[facility] [address] [place], [address] Basophils/100 WBC (Bld) 0.5 % Normal 0-1 [facility] Comment on above: Performed By: #### L 100.0100, L501.9520, L500.2500 ####[facility] [address] [place], [address] Eosinophils/100 WBC (Bld) 0.1 % Normal 0-5 [facility] Comment on above: Performed By: #### L 100.0100, L501.9520, L500.2500 ####[facility] [address] [place], [address] Erythrocyte distribution width (RBC) [Ratio] 13.4 % Normal 11.6-14.6 [facility] Comment on above: Performed By: #### L 100.0100, L501.9520, L500.2500 ####[facility] [address] [place], [address] Hematocrit (Bld) [Volume fraction] 39.6 % Normal 37-47 [facility] Comment on above: Performed By: #### L 100.0100, L501.9520, L500.2500 ####[facility] [address] [place], [address] Hemoglobin (Bld) [Mass/Vol] 13.4 g/dL Normal 12.0-15.0 [facility] Comment on above: Performed By: #### L 100.0100, L501.9520, L500.2500 ####[facility] [address] [place], [address] IG% 1.900 High 0.0-0.9 [facility] Comment on above: Result Comment: IG% - Immature Granulocytes (promyelocytes, myelocytes andmetamyelocytes) > 1% indicates that a LEFT SHIFT is Present. Performed By: #### L 100.0100, L501.9520, L500.2500 ####[facility] [address] [place], [address] Lymphocytes/100 WBC (Bld) 4.7 % Low 19-41 [facility] Comment on above: Performed By: #### L 100.0100, L501.9520, L500.2500 ####[facility] [address] [place], [address] MCH (RBC) [Entitic mass] 28.6 pg Normal 27.0-32.0 [facility] Comment on above: Performed By: #### L 100.0100, L501.9520, L500.2500 ####[facility] [address] [place], [address] MCHC (RBC) [Mass/Vol] 33.8 g/dL Normal 32-36 [facility] Comment on above: Performed By: #### L 100.0100, L501.9520, L500.2500 ####[facility] [address] [place], [address] MCV (RBC) [Entitic vol] 84.4 fL Normal 81-99 [facility] Comment on above: Performed By: #### L 100.0100, L501.9520, L500.2500 ####[facility] [address] [place], [address] Monocytes/100 WBC (Bld) 0.8 % Normal 0-10 [facility] Comment on above: Performed By: #### L 100.0100, L501.9520, L500.2500 ####[facility] [address] [place], [address] Neutrophils/100 WBC (Bld) 92.0 % High 47-70 [facility] Comment on above: Performed By: #### L 100.0100, L501.9520, L500.2500 ####[facility] [address] [place], [address] Nucleated RBC (Bld) [#/Vol] 0 10*3/uL Normal 0-5 [facility] Comment on above: Performed By: #### L 100.0100, L501.9520, L500.2500 ####[facility] [address] [place], [address] Platelet mean volume (Bld) [Entitic vol] 9.5 fL Normal 6.2-12.0 [facility] Comment on above: Performed By: #### L 100.0100, L501.9520, L500.2500 ####[facility] [address] [place], [address] Platelets (Bld) [#/Vol] 361 10*3/uL Normal 150-450 [facility] Comment on above: Performed By: #### L 100.0100, L501.9520, L500.2500 ####[facility] [address] [place], [address] RBC (Bld) [#/Vol] 4.69 10*6/uL Normal 4.2-5.4 [facility] Comment on above: Performed By: #### L 100.0100, L501.9520, L500.2500 ####[facility] [address] [place], [address] RDW SD 41.1 fl Normal 35.1-43.9 [facility] Comment on above: Performed By: #### L 100.0100, L501.9520, L500.2500 ####[facility] [address] [place], [address] WBC (Bld) [#/Vol] 16.8 10*3/uL High 4.4-11.0 [facility] Comment on above: Performed By: #### L 100.0100, L501.9520, L500.2500 ####[facility] [address] [place], [address] Absolute Lymph 1.70 X10 3/uL Normal 0.83-4.51 [facility] Comment on above: Performed By: #### L 100.0100, L500.3400 ####[facility] [address] [place], [address] Absolute Neut 16.2 X10 3/uL High 2.0-7.7 [facility] Comment on above: Performed By: #### L 100.0100, L500.3400 ####[facility] [address] [place], [address] Basophils/100 WBC (Bld) 0.7 % Normal 0-1 [facility] Comment on above: Performed By: #### L 100.0100, L500.3400 ####[facility] [address] [place], [address] Eosinophils/100 WBC (Bld) 1.0 % Normal 0-5 [facility] Comment on above: Performed By: #### L 100.0100, L500.3400 ####[facility] [address] [place], [address] Erythrocyte distribution width (RBC) [Ratio] 13.4 % Normal 11.6-14.6 [facility] Comment on above: Performed By: #### L 100.0100, L500.3400 ####[facility] [address] [place], [address] Hematocrit (Bld) [Volume fraction] 40.6 % Normal 37-47 [facility] Comment on above: Performed By: #### L 100.0100, L500.3400 ####[facility] [address] [place], [address] Hemoglobin (Bld) [Mass/Vol] 14.1 g/dL Normal 12.0-15.0 [facility] Comment on above: Performed By: #### L 100.0100, L500.3400 ####[facility] [address] [place], [address] IG% 1.800 High 0.0-0.9 [facility] Comment on above: Result Comment: IG% - Immature Granulocytes (promyelocytes, myelocytes andmetamyelocytes) > 1% indicates that a LEFT SHIFT is Present. Performed By: #### L 100.0100, L500.3400 ####[facility] [address] [place], [address] Lymphocytes/100 WBC (Bld) 8.6 % Low 19-41 [facility] Comment on above: Performed By: #### L 100.0100, L500.3400 ####[facility] [address] [place], [address] MCH (RBC) [Entitic mass] 29.0 pg Normal 27.0-32.0 [facility] Comment on above: Performed By: #### L 100.0100, L500.3400 ####[facility] [address] [place], [address] MCHC (RBC) [Mass/Vol] 34.7 g/dL Normal 32-36 [facility] Comment on above: Performed By: #### L 100.0100, L500.3400 ####[facility] [address] [place], [address] MCV (RBC) [Entitic vol] 83.5 fL Normal 81-99 [facility] Comment on above: Performed By: #### L 100.0100, L500.3400 ####[facility] [address] [place], [address] Monocytes/100 WBC (Bld) 5.6 % Normal 0-10 [facility] Comment on above: Performed By: #### L 100.0100, L500.3400 ####[facility] [address] [place], [address] Neutrophils/100 WBC (Bld) 82.3 % High 47-70 [facility] Comment on above: Performed By: #### L 100.0100, L500.3400 ####[facility] [address] [place], [address] Nucleated RBC (Bld) [#/Vol] 0 10*3/uL Normal 0-5 [facility] Comment on above: Performed By: #### L 100.0100, L500.3400 ####[facility] [address] [place], [address] Platelet mean volume (Bld) [Entitic vol] 8.9 fL Normal 6.2-12.0 [facility] Comment on above: Performed By: #### L 100.0100, L500.3400 ####[facility] [address] [place], [address] Platelets (Bld) [#/Vol] 411 10*3/uL Normal 150-450 [facility] Comment on above: Performed By: #### L 100.0100, L500.3400 ####[facility] [address] [place], [address] RBC (Bld) [#/Vol] 4.86 10*6/uL Normal 4.2-5.4 [facility] Comment on above: Performed By: #### L 100.0100, L500.3400 ####[facility] [address] [place], [address] RDW SD 40.0 fl Normal 35.1-43.9 [facility] Comment on above: Performed By: #### L 100.0100, L500.3400 ####[facility] [address] [place], [address] WBC (Bld) [#/Vol] 19.7 10*3/uL High 4.4-11.0 [facility] Comment on above: Performed By: #### L 100.0100, L500.3400 ####[facility] [address] [place], [address] CO2 (BldV) [Moles/Vol]Ordere d By: Rudi Chiu on 05-13-2024 CO2 [Moles/Vol] 16 mmol/L Low 23-33 [facility] CO2 (BldV) [Partial pressure ]Ordered By: Rudi Chiu on 05-13-2024 Bed Mix Venous Bld PCO2 at Pat Temp 37.8 mmHg Low 41-51 [facility] Chest PA and Lateralon 05-13 Chest PA and Lateral Normal [facility] Emergency Department Summary on 05-13-2024 Emergency Department Summary Normal [facility] Influenza virus A and B and SARS-CoV-2 (COVID-19) and Respiratory syncytial virus RNAOrdered By: Damaris Almaraz on 05-13-2024 SARS-CoV-2 (COVID-19) RNA ISAK+probe Ql (Unsp spec) [facility] Laboratory - Chemistry and C hemistry - challengeOrdered By: Rudi Chiu on 05-13-2024 AST [Catalytic activity/Vol] 26 U/L <32 [facility] Liver Profileon 05-13-2024 Albumin [Mass/Vol] 3.7 g/dL Normal 3.5-5.0 [facility] Comment on above: Performed By: #### L 100.0100, L500.3400 ####[facility] [address] [place], [address] ALK PHOS 139 U/L High 35-104 [facility] Comment on above: Performed By: #### L 100.0100, L500.3400 ####[facility] [address] [place], [address] ALT [Catalytic activity/Vol] 20 U/L Normal <=34 [facility] Comment on above: Performed By: #### L 100.0100, L500.3400 ####[facility] [address] [place], [address] AST [Catalytic activity/Vol] 26 U/L Normal <=31 [facility] Comment on above: Performed By: #### L 100.0100, L500.3400 ####[facility] [address] [place], [address] Bilirubin [Mass/Vol] 0.35 mg/dL Normal 0.00-1.30 [facility] Comment on above: Performed By: #### L 100.0100, L500.3400 ####[facility] [address], [address] Bilirubin.direct [Mass/Vol] 0.17 mg/dL Normal 0.00-0.30 [facility] Comment on above: Performed By: #### L 100.0100, L500.3400 ####[facility] [address] [place], [address] Globulin (S) [Mass/Vol] 3.4 g/dL Normal 2.2-4.2 [facility] Comment on above: Performed By: #### L 100.0100, L500.3400 ####[facility] [address] [place], [address] T PROT 7.1 g/dL Normal 5.9-8.4 [facility] Comment on above: Performed By: #### L 100.0100, L500.3400 ####[facility] [address] [place], [address] M100.678on 05-13-2024 M100.678 Pending SARS-CoV-2 (COVID 19) Negative INFLUENZA A Negative INFLUENZA B Negative RSV PCR Negative Normal [facility] Comment on above: Performed By: #### M 100.678 ####[facility] [address] [place], [place], [id number] Magnesiumon 05-13-2024 Magnesium [Mass/Vol] 1.9 mg/dL Normal 1.5-2.2 [facility] Comment on above: Order Comment: Comme nts: add to earlier labs Performed By: #### L 501.5200 ####[facility] [address] [place], [place], [address] Magnesium (Unsp spec) [Mass/ Vol]Ordered By: Juliana Oleary on 05-13-2024 Magnesium [Mass/Vol] 1.9 mg/dL 1.5-2.2 [facility] No Panel InformationOrdered By: Rudi Chiu on 05-13-2024 Bld Gas Crit Called To/Read Back By Yes [facility] Blood Gas Notified Time 00:46:26 [facility] Blood Gas Notified Whom Dr Chiu [facility] Blood Gas Sample Site Not entered [facility] Blood Gas Specimen Type ANABELA [facility] Oxygen Delivery Device Room Air [facility] Oxygen (BldV) [Partial press ure]Ordered By: Rudi Chiu on 05-13-2024 Venous Blood Partial Pressure O2 35 mmHg 25-40 [facility] Serum globulin measurementOr dered By: Rudi Chiu on 05-13-2024 Globulin (S) [Mass/Vol] 3.4 g/dL 2.2-4.2 [facility] Serum or plasma alanine mendieta otransferase (ALT) measurementOrdered By: Rudi Chiu on 05-13-2024 ALT [Catalytic activity/Vol] 20 U/L <35 [facility] Serum or plasma albumin joselyn urement (mass/volume)Ordered By: Rudi Chiu on 05-13-2024 Albumin [Mass/Vol] 3.7 g/dL 3.5-5.0 [facility] Serum or plasma alkaline samantha sphatase measurementOrdered By: Rudi Chiu on 05-13-2024 ALP [Catalytic activity/Vol] 139 U/L High 35-104 [facility] TSH DL <= 0.005 mIU/L QnOrde red By: Josiah Wilkins on 05-13-2024 Thyroid Stimulating Hormone (TSH) 1.150 uIU/mL 0.300-4.20 0 [facility] Thyroid Stim Hormone (TSH)on 05-13-2024 TSH 1.150 uIU/mL Normal 0.300-4.20 0 [facility] Comment on above: Performed By: #### L 100.0100, L501.9520, L500.2500 ####[facility] [address] [place], [address] Total proteinOrdered By: Rudi Chiu on 05-13-2024 Protein [Mass/Vol] 7.1 g/dL 5.9-8.4 [facility] Venous Blood Gason Blood Gas Type ANABELA [facility] Comment on above: Performed By: #### L 9000.0810 ####[facility] [address] [place], [address] CO2 [Moles/Vol] 16 mmol/L Low 23-33 [facility] Comment on above: Performed By: #### L 9000.0810 ####[facility] [address] [place], [address] HCO3 (Bld) [Moles/Vol] 15 mmol/L Low 22-26 [facility] Comment on above: Performed By: #### L 9000.0810 ####[facility] [address] [place], [address] O2 Delivery Dev Room Air [facility] Comment on above: Performed By: #### L 9000.0810 ####[facility] [address] [place], [address] Read Back By Yes [facility] Comment on above: Performed By: #### L 9000.0810 ####[facility] [address] [place], [address] Chiu Normal [facility] Comment on above: Performed By: #### L 9000.0810 ####[facility] [address] [place], [address] SITE Not entered [facility] Comment on above: Performed By: #### L 9000.0810 ####[facility] [address] [place], [address] Time Given 00:46:26 Normal [facility] Comment on above: Performed By: #### L 9000.0810 ####[facility] [address] [place], [address] VBG BE -13 mmol/L Low -1.0-3.5 [facility] Comment on above: Performed By: #### L 9000.0810 ####[facility] [address] [place], [address] VBG pCO2 37.8 mmHg Low 41-51 [facility] Comment on above: Performed By: #### L 9000.0810 ####[facility] [address] [place], [address] VBG pH 7.20 Low 7.32-7.42 [facility] Comment on above: Performed By: #### L 9000.0810 ####[facility] [address] [place], [address] VBG PO2 35 mmHg Normal 25-40 [facility] Comment on above: Performed By: #### L 9000.0810 ####[facility] [address] [place], [address] VBG SO2 55 Normal 50-70 [facility] Comment on above: Performed By: #### L 9000.0810 ####[facility] [address] [place], [address] Venous blood bicarbonate svetlana surementOrdered By: Rudi Chiu on 05-13-2024 HCO3 (Bld) [Moles/Vol] 15 mmol/L Low 22-26 [facility] Venous blood oxygen saturati on measurementOrdered By: Rudi Chiu on 05-13-2024 Oxygen saturation in Blood 55 % 50-70 [facility] pH (BldV)Ordered By: Rudi Gal lo on 05-13-2024 Venous Blood pH 7.20 Low 7.32-7.42 [facility] Basic Metabolic Profile (BMP )on 05-12-2024 BUN/CRE 12.8 RATIO Normal 10-20 [facility] Comment on above: Performed By: #### L 500.2500 ####[facility] [address] [place], [address] Calcium [Mass/Vol] 9.7 mg/dL Normal 7.6-11.0 [facility] Comment on above: Performed By: #### L 500.2500 ####[facility] [address] [place], [address] Chloride [Moles/Vol] 100 mmol/L Normal 98-108 [facility] Comment on above: Performed By: #### L 500.2500 ####[facility] [address] [place], [address] CO2 [Moles/Vol] 14.3 mmol/L Low 21.0-32.0 [facility] Comment on above: Performed By: #### L 500.2500 ####[facility] [address] [place], [address] Creatinine [Mass/Vol] 1.54 mg/dL High 0.70-1.20 [facility] Comment on above: Performed By: #### L 500.2500 ####[facility] [address] [place], [address] ECRCL 27.43 ml/min Low 50-250 [facility] Comment on above: Performed By: #### L 500.2500 ####[facility] [address] [place], [address] GAP 15 Normal 5-15 [facility] Comment on above: Performed By: #### L 500.2500 ####[facility] [address] [place], [address] GFR/1.73 sq M.predicted among non-blacks MDRD (S/P/Bld) [Vol rate/Area] 44 mL/min/{1.73_m2} Low >60 [facility] Comment on above: Result Comment: mL/m in/1.73m2 CKD-EPI Creatinine Equation (2020) Performed By: #### L 500.2500 ####[facility] [address] [place], [address] Glucose [Mass/Vol] 113 mg/dL High 70-99 [facility] Comment on above: Performed By: #### L 500.2500 ####[facility] [address] [place], [address] Potassium [Moles/Vol] 4.2 mmol/L Normal 3.3-5.1 [facility] Comment on above: Performed By: #### L 500.2500 ####[facility] [address] [place], [address] Sodium [Moles/Vol] 130 mmol/L Low 133-145 [facility] Comment on above: Performed By: #### L 500.2500 ####[facility] [address] [place], [address] Urea nitrogen [Mass/Vol] 20 mg/dL High 4-19 [facility] Comment on above: Performed By: #### L 500.2500 ####[facility] [address] [place], [address] Emergency Department Summary on 05-12-2024 Emergency Department Summary Normal [facility] M100.677on 05-12-2024 M100.677 Negative Normal [facility] Comment on above: Performed By: #### M 100.677 ####[facility] [address] [place], [place], [address] S. pyogenes rRNA Probe Ql (T hroat)Ordered By: Rudi Chiu on 05-12-2024 Streptococcus pyogenes (PCR) [facility] Cardiology Visit Reporton Cardiology Visit Report Normal [facility] Echo Completeon 04-10-2024 Echo Complete Normal [facility] Internal Medicine Office Vis iton 03-26-2024 Internal Medicine Office Visit Normal [facility] CORTISOL SERUMon 03-24-2024 CORTISOL 11.70 ug/dL Normal 3.44-22.45 [facility] Comment on above: Order Comment: 8 AM draw Result Comment: Adul t (AM) 5.27 - 22.45 ug/dL Adult (PM) 3.44 - 16.76 ug/dL Performed By: #### L 509.6000 ####[facility] [address] [place], [place], [address] Cortisol [Mass/Vol]Ordered B y: Antonio Roman on 03-24-2024 Cortisol 11.70 ug/dL 3.44-22.45 [facility] Comment on above: Adult (AM) 5.27 - 22 .45 ug/dL Adult (PM) 3.44 - 16.76 ug/dL Internal Medicine Office Vis iton 03-21-2024 Internal Medicine Office Visit Normal [facility] D-Dimer Quantitative (DVT/PE )on 03-08-2024 D-DIMER QUANT < 0.27 Low 0.27-0.49 [facility] Comment on above: Result Comment: NORM AL D-Dimer level (<0.50) indicates no DVT or PE. Performed By: #### L 300.8000 ####[facility] [address] [place], [place], [address] Emergency Department Summary on 03-08-2024 Emergency Department Summary Normal [facility] L501.4020on 03-08-2024 TROPONIN-I HS < 3 Low 3.0-54.0 [facility] Comment on above: Order Comment: 2 Result Comment: Beatriz person Note: New Test Units and Gender Specific Reference Ranges. For more information see Policy Stat Procedure [place] High Sensitivity Troponin (TNIH) and attachments. Performed By: #### L 501.4020 ####[facility] [address] [place], [address] Troponin IOrdered By: Ildefonso Duran on 03-08-2024 Troponin I High Sensitivity < 3 pg/mL Low 3.0-54.0 [facility] Comment on above: Please Note: New Saira t Units and Gender Specific Reference Ranges. For more information see Policy Stat Procedure [place] High Sensitivity Troponin (TNIH) and attachments. 12 Lead EKGon 03-07-2024 12 Lead EKG Normal [facility] Absolute neutrophil countOrd ered By: Ildefonso Duran on 03-07-2024 Neutrophils (Bld) [#/Vol] 16.6 10*3/uL High 2.0-7.7 [facility] Basic Metabolic Profile (BMP )on 03-07-2024 BUN/CRE 14.2 RATIO Normal 10-20 [facility] Comment on above: Order Comment: 1Y Performed By: #### L 100.0100, L500.2500, L501.5425 ####[facility] [address] [place], [address] CA,Total 9.4 mg/dL Normal 8.5-10.1 [facility] Comment on above: Order Comment: 1Y Performed By: #### L 100.0100, L500.2500, L501.5425 ####[facility] [address] [place], [address] Chloride [Moles/Vol] 98 mmol/L Normal 98-107 [facility] Comment on above: Order Comment: 1Y Performed By: #### L 100.0100, L500.2500, L501.5425 ####[facility] [address] [place], [address] CO2 [Moles/Vol] 28.0 mmol/L Normal 21.0-32.0 [facility] Comment on above: Order Comment: 1Y Performed By: #### L 100.0100, L500.2500, L501.5425 ####[facility] [address] [place], [address] Creatinine [Mass/Vol] 1.55 mg/dL High 0.55-1.02 [facility] Comment on above: Order Comment: 1Y Result Comment: The validity of the calculated GFR GFRAA in patients over70 years has not been determined. Clinical correlation isessential. Performed By: #### L 100.0100, L500.2500, L501.5425 ####[facility] [address] [place], [address] ECRCL 28.22 ml/min Normal [facility] Comment on above: Order Comment: 1Y Performed By: #### L 100.0100, L500.2500, L501.5425 ####[facility] [address] [place], [address] EST GFR - AA 48 mL/min Low >60 [facility] Comment on above: Order Comment: 1Y Result Comment: Afri can Trinidadian GFR Calc Performed By: #### L 100.0100, L500.2500, L501.5425 ####[facility] [address] [place], [address] GAP 6 Normal 5-15 [facility] Comment on above: Order Comment: 1Y Performed By: #### L 100.0100, L500.2500, L501.5425 ####[facility] [address] [place], [address] GFR/1.73 sq M.predicted among non-blacks MDRD (S/P/Bld) [Vol rate/Area] 40 mL/min/{1.73_m2} Low >60 [facility] Comment on above: Order Comment: 1Y Result Comment: Non- GFR Calc Performed By: #### L 100.0100, L500.2500, L501.5425 ####[facility] [address] [place], [address] Glucose [Mass/Vol] 109 mg/dL High 74-106 [facility] Comment on above: Order Comment: 1Y Result Comment: Fast ing Glucose result from 100 to 125 mg/dLsuggests IMPAIRED HOMEOSTASIS per A.D.A. criteria. Performed By: #### L 100.0100, L500.2500, L501.5425 ####[facility] [address] [place], [address] Potassium [Moles/Vol] 3.9 mmol/L Normal 3.5-5.1 [facility] Comment on above: Order Comment: 1Y Result Comment: Mode rate Hemolysis, Result may be falsely increased. Performed By: #### L 100.0100, L500.2500, L501.5425 ####[facility] [address] [place], [address] Sodium [Moles/Vol] 132 mmol/L Low 136-145 [facility] Comment on above: Order Comment: 1Y Performed By: #### L 100.0100, L500.2500, L501.5425 ####[facility] [address] [place], [address] Urea nitrogen [Mass/Vol] 22 mg/dL High 7-18 [facility] Comment on above: Order Comment: 1Y Performed By: #### L 100.0100, L500.2500, L501.5425 ####[facility] [address] [place], [address] Basophil percentageOrdered B y: Ildefonso Renee on 03-07-2024 Basophils/100 WBC (Bld) 0.8 % 0-1 [facility] Blood urea nitrogen (BUN)/cr eatinine ratioOrdered By: Ildefonso Duran on 03-07-2024 Urea nitrogen/Creatinine [Mass ratio] 14.2 mg/mg 10- [facility] CBC W/Diff, Automatedon 02-10 Absolute Lymph 0.98 X10 3/uL Normal 0.83-4.51 [facility] Comment on above: Performed By: #### L 100.0100, L500.2500, L501.5425 ####[facility] [address] [place], [address] Absolute Neut 16.6 X10 3/uL High 2.0-7.7 [facility] Comment on above: Performed By: #### L 100.0100, L500.2500, L501.5425 ####[facility] [address] [place], [address] Basophils/100 WBC (Bld) 0.8 % Normal 0-1 [facility] Comment on above: Performed By: #### L 100.0100, L500.2500, L501.5425 ####[facility] [address] [place], [address] Eosinophils/100 WBC (Bld) 0.5 % Normal 0-5 [facility] Comment on above: Performed By: #### L 100.0100, L500.2500, L501.5425 ####[facility] [address] [place], [address] Erythrocyte distribution width (RBC) [Ratio] 13.1 % Normal 11.6-14.6 [facility] Comment on above: Performed By: #### L 100.0100, L500.2500, L501.5425 ####[facility] [address] [place], [address] Hematocrit (Bld) [Volume fraction] 48.0 % High 37-47 [facility] Comment on above: Performed By: #### L 100.0100, L500.2500, L501.5425 ####[facility] [address] [place], [address] Hemoglobin (Bld) [Mass/Vol] 16.1 g/dL High 12.0-15.0 [facility] Comment on above: Performed By: #### L 100.0100, L500.2500, L501.5425 ####[facility] [address] [place], [address] IG% 2.100 High 0.0-0.9 [facility] Comment on above: Result Comment: IG% - Immature Granulocytes (promyelocytes, myelocytes andmetamyelocytes) > 1% indicates that a LEFT SHIFT is Present. Performed By: #### L 100.0100, L500.2500, L501.5425 ####[facility] [address] [place], [address] Lymphocytes/100 WBC (Bld) 5.1 % Low 19-41 [facility] Comment on above: Performed By: #### L 100.0100, L500.2500, L501.5425 ####[facility] [address] [place], [address] MCH (RBC) [Entitic mass] 28.6 pg Normal 27.0-32.0 [facility] Comment on above: Performed By: #### L 100.0100, L500.2500, L501.5425 ####[facility] [address] [place], [address] MCHC (RBC) [Mass/Vol] 33.5 g/dL Normal 32-36 [facility] Comment on above: Performed By: #### L 100.0100, L500.2500, L501.5425 ####[facility] [address] [place], [address] MCV (RBC) [Entitic vol] 85.3 fL Normal 81-99 [facility] Comment on above: Performed By: #### L 100.0100, L500.2500, L501.5425 ####[facility] [address] [place], [address] Monocytes/100 WBC (Bld) 5.9 % Normal 0-10 [facility] Comment on above: Performed By: #### L 100.0100, L500.2500, L501.5425 ####[facility] [address] [place], [address] Neutrophils/100 WBC (Bld) 85.6 % High 47-70 [facility] Comment on above: Performed By: #### L 100.0100, L500.2500, L501.5425 ####[facility] [address] [place], [address] Nucleated RBC (Bld) [#/Vol] 0 10*3/uL Normal 0-5 [facility] Comment on above: Performed By: #### L 100.0100, L500.2500, L501.5425 ####[facility] [address] [place], [address] Platelet mean volume (Bld) [Entitic vol] 9.1 fL Normal 6.2-12.0 [facility] Comment on above: Performed By: #### L 100.0100, L500.2500, L501.5425 ####[facility] [address] [place], [address] Platelets (Bld) [#/Vol] 408 10*3/uL Normal 150-450 [facility] Comment on above: Performed By: #### L 100.0100, L500.2500, L501.5425 ####[facility] [address] [place], [address] RBC (Bld) [#/Vol] 5.63 10*6/uL High 4.2-5.4 [facility] Comment on above: Performed By: #### L 100.0100, L500.2500, L501.5425 ####[facility] [address] [place], [address] RDW SD 40.3 fl Normal 35.1-43.9 [facility] Comment on above: Performed By: #### L 100.0100, L500.2500, L501.5425 ####[facility] [address] [place], [address] WBC (Bld) [#/Vol] 19.4 10*3/uL High 4.4-11.0 [facility] Comment on above: Performed By: #### L 100.0100, L500.2500, L501.5425 ####[facility] [address] [place], [address] Calprotectin, Stoolon [address] 98 ug/g Normal 0-120 [facility] Comment on above: Result Comment: Conc entration Interpretation Follow-Up< 5 - 50 ug/g Normal None>50 -120 ug/g Borderline Re-evaluate in 4-6 weeks >120 ug/g Abnormal Repeat as clinically indicatedPerformed at: [facility] [id number] Director: Bettina Jimenez MD, Phone: [phone] Performed By: #### M 100.0605, L1400.0700 ####[facility] [address] [place], [address] Carbon dioxide measurementOr dered By: Ildefonso Duran on 03-07-2024 CO2 [Moles/Vol] 28.0 mmol/L 21.0-32.0 [facility] Chest 1 View (Portable)on Chest 1 View (Portable) Normal [facility] Chloride measurementOrdered By: Ildefonso Duran on 03-07-2024 Chloride [Moles/Vol] 98 mmol/L 98-107 [facility] D-dimer measurement for deep venous thrombosisOrdered By: Guerrero Fuller on 03-07-2024 D-Dimer Quantitative (PE/DVT) < 0.27 FEU/ug/m Low 0.27-0.49 [facility] Comment on above: NORMAL D-Dimer level (<0.50) indicates no DVT or PE. Eosinophil percentageOrdered By: Ildefonso Duran on 03-07-2024 Eosinophils/100 WBC (Bld) 0.5 % 0-5 [facility] Erythrocyte distribution wid th ratioOrdered By: Ildefonso Duran on 03-07-2024 Erythrocyte distribution width (RBC) [Ratio] 13.1 % 11.6-14.6 [facility] Erythrocyte distribution wid th standard deviationOrdered By: Ildefonso Duran on 03-07-2024 Erythrocyte distribution width (RBC) [Entitic vol] 40.3 fL 35.1-43.9 [facility] Estimated glomerular filtrat ion rate (GFR) AmericanOrdered By: Ildefonso Duran on 03-07-2024 Estimated GFR (MDRD) Amer 48 mL/min Low >60 [facility] Comment on above: GFR Calc Estimation of creatinine sammie aranceOrdered By: Ildefonso Duran on 03-07-2024 Estimated Creatinine Clearance Calc 28.22 ml/min [facility] Glomerular filtration rate ( GFR) estimationOrdered By: Ildefonso Duran on 03-07-2024 Estimated GFR (MDRD) Non-Af Amer 40 mL/min Low >60 [facility] Comment on above: Non- GFR Calc Glucose measurementOrdered B y: Ildefonso Duran on 03-07-2024 Glucose [Mass/Vol] 109 mg/dL High 74-106 [facility] Comment on above: Fasting Glucose resu lt from 100 to 125 mg/dL suggests IMPAIRED HOMEOSTASIS per A.D.A. criteria. Hematocrit Auto (Bld) [Volum e fraction]Ordered By: Ildefonso Duran on 03-07-2024 Hematocrit (Bld) [Volume fraction] 48.0 % High 37-47 [facility] Hemoglobin measurementOrdere d By: Ildefonso Duran on 03-07-2024 Hemoglobin (Bld) [Mass/Vol] 16.1 g/dL High 12.0-15.0 [facility] Immature granulocytes/100 WB C Auto (Bld)Ordered By: Ildefonso Duran on 03-07-2024 Immature granulocytes/100 WBC (Bld) 2.100 % High 0.0-0.9 [facility] Comment on above: IG% - Immature Granu locytes (promyelocytes, myelocytes and metamyelocytes) > 1% indicates that a LEFT SHIFT is Present. L501.5425on 03-07-2024 TROPONIN-I HS < 3 Low 3.0-54.0 [facility] Comment on above: Order Comment: 1Y Result Comment: Plea se Note: New Test Units and Gender Specific Reference Ranges. For more information see Policy Stat Procedure [place] High Sensitivity Troponin (TNIH) and attachments. Performed By: #### L 100.0100, L500.2500, L501.5425 ####[facility] [address] [place], [place], [address] Lymphocytes Auto (Unsp spec) [#/Vol]Ordered By: Ildefonso Duran on 03-07-2024 Lymphocytes (Bld) [#/Vol] 0.98 10*3/uL 0.83-4.51 [facility] Lymphocytes/100 WBC Auto (Un sp spec)Ordered By: Ildefonso Duran on 03-07-2024 Lymphocytes/100 WBC (Bld) 5.1 % Low 19-41 [facility] MCV (mean corpuscular volume ) determinationOrdered By: Ildefonso Duran on 03-07-2024 MCV (RBC) [Entitic vol] 85.3 fL 81-99 [facility] Magnesiumon 03-07-2024 Magnesium [Mass/Vol] 2.2 mg/dL Normal 1.6-2.6 [facility] Comment on above: Result Comment: Mode rate Hemolysis, Result may be falsely increased. Performed By: #### L 501.5200, L501.9520 ####[facility] [address] [place], [place], [id number] Magnesium measurementOrdered By: Guerrero Fuller on 03-07-2024 Magnesium [Mass/Vol] 2.2 mg/dL 1.6-2.6 [facility] Comment on above: Moderate Hemolysis, Result may be falsely increased. Mean corpuscular hemoglobin (MCH) determinationOrdered By: Ildefonso Duran on 03-07-2024 MCH (RBC) [Entitic mass] 28.6 pg 27.0-32.0 [facility] Mean corpuscular hemoglobin concentration (MCHC) determinationOrdered By: Ildefonso Duran on 03-07-2024 MCHC (RBC) [Mass/Vol] 33.5 g/dL 32-36 [facility] Mean platelet volume determi nationOrdered By: Ildefonso Duran on 03-07-2024 Platelet mean volume (Bld) [Entitic vol] 9.1 fL 6.2-12.0 [facility] Monocyte percentageOrdered B y: Ildefonso Duran on 03-07-2024 Monocytes/100 WBC (Bld) 5.9 % 0-10 [facility] Neutrophil percentageOrdered By: Ildefonso Duran on 03-07-2024 Neutrophils/100 WBC (Bld) 85.6 % High 47-70 [facility] Nucleated red blood cell per centageOrdered By: Ildefonso Duran on 03-07-2024 Nucleated RBC/100 WBC (Bld) [Ratio] 0 % 0-5 [facility] Platelet countOrdered By: Melly Duran on 03-07-2024 Platelets (Bld) [#/Vol] 408 10*3/uL 150-450 [facility] Potassium measurementOrdered By: Ildefonso Duran on 03-07-2024 Potassium [Moles/Vol] 3.9 mmol/L 3.5-5.1 [facility] Comment on above: Moderate Hemolysis, Result may be falsely increased. RBC Auto (Bld) [#/Vol]Ordere d By: Ildefonso Duran on 03-07-2024 RBC (Bld) [#/Vol] 5.63 10*6/uL High 4.2-5.4 [facility] Serum anion gap measurementO rdered By: Ildefonso Duran on 03-07-2024 Anion gap [Moles/Vol] 6 mmol/L 5-15 [facility] Serum or plasma calcium joselyn urement (mass/volume)Ordered By: Ildefonso Duran on 03-07-2024 Calcium [Mass/Vol] 9.4 mg/dL 8.5-10.1 [facility] Serum or plasma creatinine m easurement (mass/volume)Ordered By: Ildefonso Duran on 03-07-2024 Creatinine [Mass/Vol] 1.55 mg/dL High 0.55-1.02 [facility] Comment on above: The validity of the calculated GFR & GFRAA in patients over 70 years has not been determined. Clinical correlation is essential. Serum or plasma urea nitroge n measurement (mass/volume)Ordered By: Ildefonso Duran on 03-07-2024 Urea nitrogen [Mass/Vol] 22 mg/dL High 7-18 [facility] Sodium levelOrdered By: Med Duran on 03-07-2024 Sodium [Moles/Vol] 132 mmol/L Low 136-145 [facility] TSH QnOrdered By: Jonathan on 03-07-2024 Thyroid Stimulating Hormone (TSH) 2.120 uIU/mL 0.358-3.74 0 [facility] Thyroid Stim Hormone (TSH)on 03-07-2024 TSH 2.120 uIU/mL Normal 0.358-3.74 0 [facility] Comment on above: Performed By: #### L 501.5200, L501.9520 ####[facility] [address] [place], [address] White blood cell (WBC) count Ordered By: Ildefonso Duran on 03-07-2024 WBC (Bld) [#/Vol] 19.4 10*3/uL High 4.4-11.0 [facility] ROBERTA Comprehensive Panelon ROBERTA TABLE Comment Normal . [facility] Comment on above: Result Comment: Auto antibody Disease Association -------- Condition Frequency ---------Antinuclear Antibody, SLE, mixed connectiveDirect (ROBERTA-D) tissue diseases ---------dsDNA SLE 40 - 60% ---------Chromatin Drug induced SLE 90% SLE 48 - 97% ---------SSA (Ro) SLE 25 - 35% Sjogren's Syndrome 40 - 70% Lupus 100% ---------SSB (La) SLE 10% Sjogren's Syndrome 30% ---------Sm (anti-Villagomez) SLE 15 - 30% ---------FANCY STITCHER Mixed Connective Tissue Disease 95%(U1 nRNP, SLE 30 - 50%anti-ribonucleoprotein) Polymyositis and/or Dermatomyositis 20% ---------Scl-70 (antiDNA Scleroderma (diffuse) 20 - 35%topoisomerase) Crest 13% ---------Carmen-1 Polymyositis and/or Dermatomyositis 20 - 40% ---------Centromere B Scleroderma - Crest variant 80% Performed By: #### L 3100.5440, L500.4050, L503.0105, L506.1000, L501.5101, L803.2200, L3300.1200, L800.1280, L3100.7870 ####[facility] [address] [facility]. [place], [place], [id number] ANCAon 03-06-2024 Atypical pANCA <1:20 Normal Neg:<1:20 [facility] Comment on above: Result Comment: The atypical pANCA pattern has been observed in asignificant percentage of patients with ulcerative colitis,primary sclerosing cholangitis and autoimmune hepatitis. Performed By: #### L 3100.5440, L500.4050, L503.0105, L506.1000, L501.5101, L803.2200, L3300.1200, L800.1280, L3100.7870 ####[facility] [address] [facility]. [place], [place], [id number] Cytoplasmic Ab <1:20 Normal Neg:<1:20 [facility] Comment on above: Performed By: #### L 3100.5440, L500.4050, L503.0105, L506.1000, L501.5101, L803.2200, L3300.1200, L800.1280, L3100.7870 ####[facility] [address] [place], [address] Perinuclear Ab. <1:20 Normal Neg:<1:20 [facility] Comment on above: Result Comment: The presence of positive fluorescence exhibiting P-ANCA orC-ANCA patterns alone is not specific for the diagnosis ofWegener's Granulomatosis (WG) or microscopic polyangiitis.Decisions about treatment should not be based solely onANCA IFA results. The International ANCA Group Consensusrecommends follow up testing of positive sera with both WY-3 and MPO-ANCA enzyme immunoassays. As many as 5% serumsamples are positive only by EIA. Ref. AM J Clin [id number];111:507-513. Performed By: #### L 3100.5440, L500.4050, L503.0105, L506.1000, L501.5101, L803.2200, L3300.1200, L800.1280, L3100.7870 ####[facility] [address] [place], [address] Anti-Mitochondrial ABon 02-10 ANTIMITOCHON AB <20.0 Normal 0.0-20.0 [facility] Comment on above: Result Comment: Nega tive 0.0 - 20.0 Equivocal 20.1 - 24.9 Positive >24.9Mitochondrial (M2) Antibodies are found in 90-96% ofpatients with primary biliary cirrhosis. Performed By: #### L 3100.5440, L500.4050, L503.0105, L506.1000, L501.5101, L803.2200, L3300.1200, L800.1280, L3100.7870 ####[facility] [address] [place], [address] Anti-Smooth Muscle ABSon ANTISMOOTH MUSC 5 Units Normal 0-19 [facility] Comment on above: Result Comment: Nega tive 0 - 19 Weak positive 20 - 30 Moderate to strong positive >30 Actin Antibodies are found in 52-85% of patients with autoimmune hepatitis or chronic active hepatitis and in 22% of patients with primary biliary cirrhosis. Performed By: #### L 3100.5440, L500.4050, L503.0105, L506.1000, L501.5101, L803.2200, L3300.1200, L800.1280, L3100.7870 ####[facility] [address] [place], [address] CNOVon 03-06-2024 CNOV Office Visit (UCWSTR ) PHILIPPE RG ([id number]) 1985 F Date Time Provider Department 03/06/24 6:30 PM FIDENCIO MCPHERSON [facility] During your visit today, we recorded the following information about you: Fidencio Mcpherson APRN.ART 03/06/2024 6:32 PM Signed Nontoxic-appearing female presents urgent care chief complaint elevated heart rate. Duration of symptoms ongoing for the last week. States was recently diagnosed with POTS. Was supposed to be on beta-jared. Unable to get a hold of PCP today. Heart rates been 140s and 150s. Is slightly fatigued feeling. I instructed patient we are unable to prescribe medications such as beta-blockers through the urgent care. Referred patient to ED. Verbalized understand agrees plan of care. Fidencio Mcpherson APRN.MANAGER CREDIT COLLECTIONS Allergies As of Date: 03/06/2024 Noted Allergy Reaction ADHESIVE TAPE (ROSINS) 04/28/2010 2 - Rash Comments: Convate waffer tape collar Adhesive- (most adhesive tape causes rash) tolerates versaderm in IV securement kit HUMIRA (ADALIMUMAB) 01/10/2010 5 - Intolerance IRON 03/07/2012 5 - Intolerance Comments: per pt- can take, but only very small dose. (IV Iron only causes issues.) REMICADE (INFLIXIMAB) 01/10/2010 12 - Shortness of Breath VANCOMYCIN 09/07/2010 2 - Rash Comments: Per Dr. Asad Garcia to Allergy List - Rash Date Reviewed: 03/06/2024 Reviewed by: Fidencio Mcpherson APRN.MANAGER CREDIT COLLECTIONS - Fully Assessed Primary Visit Diagnosis:Procedure not carried out [Z53.9] Prescriptions as of 03/06/2024 - acetaminophen (TYLENOL) 325 mg tablet Take 650 mg by mouth every 4 hours as needed for pain. - vitamin B complex vit C no.3 (VITAMIN B COMP AND C NO.3 ORAL) Take by mouth once daily. - levothyroxine (SYNTHROID) 25 mcg tablet TAKE 1 TABLET DAILY (6 A.M.) - cholecalciferol, vitamin D3, (VITAMIN D3 ORAL) Take by mouth once daily. - ondansetron orally disintegrating (ZOFRAN ODT) 4 mg disintegrating tablet Take 1 tablet by mouth once daily as needed for nausea/vomiting. - predniSONE (DELTASONE) 5 mg tablet Take 3 tablets po every day - potassium chloride (KLOR-CON 10) 10 mEq tablet Take 1 tablet by mouth once daily. - Multivitamin capsule Take 1 capsule by mouth once daily. Problem List As Of Date 03/06/2024 Noted Resolved Regional enteritis of small intestine [K50.00] 06/08/2010 05/21/2012 Crohn's disease (HCC) [K50.90] 09/04/2011 Perianal abscess [K61.0] 09/04/2011 04/24/2016 Anemia [D64.9] 04/24/2016 Attention to ileostomy [Z43.2] 04/04/2012 Back pain [M54.9] 05/15/2012 04/24/2016 SUMMARY [V999.95] 05/15/2012 04/24/2016 Hypokalemia [E87.6] 05/18/2012 09/14/2016 Non-traumatic compression fracture of vertebral*05/14/2012 Prophylactic measure [Z29.9] 06/06/2013 04/24/2016 Abdominal pain, Nausea, and Vomiting [R10.9] 06/06/2013 09/14/2016 Leukocytosis [D72.829] 06/06/2013 04/24/2016 Hypernatremia [E87.0] 06/06/2013 06/07/2013 DVT (deep venous thrombosis) (HCC) [I82.409] 07/16/2013 04/24/2016 Tachycardia [R00.0] 06/30/2014 04/24/2016 Post-op pain [G89.18] 06/30/2014 04/24/2016 PCB (post coital bleeding) [N93.0] 06/09/2015 09/14/2016 Hemorrhagic ovarian cyst [N83.209] 06/18/2015 03/11/2019 Calculus of gallbladder with chronic cholecysti*04/14/2016 03/11/2019 Postcoital and contact bleeding [N93.0] 11/02/2016 03/11/2019 Pelvic pain in female [R10.2] 11/02/2016 03/11/2019 Hyponatremia [E87.1] 11/05/2016 03/11/2019 ELPIDIO (acute kidney injury) (HCC) [N17.9] 11/05/2016 03/11/2019 UTI (urinary tract infection) [N39.0] 11/05/2016 03/11/2019 Female infertility [N97.9] 12/10/2017 Underweight [R63.6] Crohn's disease of small intestine with other c*04/24/2019 CKD (chronic kidney disease) stage 3, GFR 30-59*04/24/2019 Nontoxic single thyroid nodule [E04.1] 04/29/2020 08/05/2020 Postsurgical hypothyroidism [E89.0] 08/05/2020 Papillary thyroid carcinoma (HCC) [C73] 08/05/2020 Encounter Status:Closed by FIDENCIO MCPHERSON on 03/06/24 [facility], High Sensitivity [id number] on 03-06-2024 CRP, HIGH SENS 4.76 mg/L High 0.00-3.00 [facility] Comment on above: Result Comment: Rela tive Risk for Future Cardiovascular Event Low <1.00 Average 1.00 - 3.00 High >3.00Performed at: - [facility] [address] [id number] Director: Juan C Valladares PhD, Phone: [phone] Performed By: #### L 8988.3202, L500.4050, L503.0105, L506.1000, L501.5101, L803.2200, L3300.1200, L800.1280, L3100.7870 ####[facility] [address] [place], [address] L501.5101on 03-06-2024 GGTP 26 IU/L Normal 0-60 [facility] Comment on above: Result Comment: Perf ormed at: - [facility] [address] [id number] Director: Juan C Valladares PhD, Phone: [phone] Performed By: #### L 3100.5440, L500.4050, L503.0105, L506.1000, L501.5101, L803.2200, L3300.1200, L800.1280, L3100.7870 ####[facility] [address] [place], [place], [address] CBC W/Diff, Automatedon 02-10 PATH REV Reviewed Normal [facility] Comment on above: Result Comment: Neut rophilic leukocytosis with left shiftPolycythemiaThrombocytosis.Clinical correlation necessary.Herminio Kelly M.D. 03/04/24Pathologist comment added AMENDED REPORT 03/04/24 1029 PATH REV previously reported as: Reviewed Performed By: #### L 500.2500, L501.4020, L100.0100 ####[facility] [address] [place], [address] 82-RH-Hlkkjtm DOrdered By: Jaime Caruso on 03-03-2024 Vitamin D 25-Hydroxy 30.0 ng/mL [facility] Comment on above: Vitamin D 25(OH) Sta tus Range Deficiency <20 ng/mL (50nmol/L) Insufficiency 20 - 30 ng/mL (50 - 75 nmol/L) Sufficiency 30 - 100 ng/mL (75 - 250 nmol/L) Toxicity >100 ng/mL (>250 nmol/L) Actin IgG QnOrdered By: Norma Caruso on 03-03-2024 Anti-Smooth Muscle Antibody 5 Units 0-19 [facility] Comment on above: Negative 0 - 19 Weak positive 20 - 30 Moderate to strong positive >30 Actin Antibodies are found in 52-85% of patients with autoimmune hepatitis or chronic active hepatitis and in 22% of patients with primary biliary cirrhosis. Albumin to globulin ratioOrd ered By: Ashley Caruso on 03-03-2024 Albumin/Globulin [Mass ratio] 0.8 {ratio} Low 0.9-2.4 [facility] Atypical perinuclear antineu trophil cytoplasmic antibodies measurementOrdered By: Ashley Caruso on 03-03-2024 Atypical p-ANCA <1:20 titer Neg:<1:20 [facility] Comment on above: The atypical pANCA p attern has been observed in asignificant percentage of patients with ulcerative colitis,primary sclerosing cholangitis and autoimmune hepatitis. Bilirubin, totalOrdered By: Ashley Caruso on 03-03-2024 Bilirubin [Mass/Vol] 0.40 mg/dL 0.20-1.00 [facility] Comment on above: For patients on eltr ombopag therapy, use of Dimension [place] TBIL is not recommended. Blood urea nitrogen (BUN)/cr eatinine ratioOrdered By: Ashley Caruso on 03-03-2024 Urea nitrogen/Creatinine [Mass ratio] 14.0 mg/mg 10-20 [facility] C-reactive protein measureme nt by high sensitivity methodOrdered By: Ashley Caruso on 03-03-2024 C-Reactive Protein High Sensitivity 4.76 mg/L High 0.00-3.00 [facility] Comment on above: Relative Risk for Fu ture Cardiovascular Event Low <1.00 Average 1.00 - 3.00 High >3.00Performed at: [employer] [facility] [id number] Director: Juan C Valladares PhD, Phone: [phone] Calprotectin stoolOrdered By : Ashley Caruso on 03-03-2024 Stool Calprotectin 98 ug/g 0-120 [facility] Comment on above: Concentration Interp retation Follow-Up< 5 - 50 ug/g Normal None>50 -120 ug/g Borderline Re-evaluate in 4-6 weeks >120 ug/g Abnormal Repeat as clinically indicatedPerformed at: [facility] [place] [address] [place], [place] [id number] Director: Bettina Jimenez MD, Phone: [phone] Carbon dioxide measurementOr dered By: Ashley Caruso on 03-03-2024 CO2 [Moles/Vol] 26.0 mmol/L 21.0-32.0 [facility] Centromere B antibody assayO rdered By: Ashley Caruso on 03-03-2024 Centromere B Antibody <0.2 AI 0.0-0.9 [facility] Comment on above: Previous reported re sult: TNP AIEdited by: SHAHEEN on 03/06/24:1306 AMENDED REPORT 03/06/24 1306 ANTI-CENT B previously reported as: Test not performed Chloride measurementOrdered By: Ashley Caruso on 03-03-2024 Chloride [Moles/Vol] 101 mmol/L 98-107 [facility] Chromatin antibody assayOrde red By: Ashley Caruso on 03-03-2024 Antichromatin Antibodies <0.2 AI 0.0-0.9 [facility] Comment on above: Previous reported re sult: TNP AIEdited by: SHAHEEN on 03/06/24:1306 AMENDED REPORT 03/06/24 1306 ANTICHROMATIN previously reported as: Test not performed Comprehensive Metabolic Prof ilon 03-03-2024 Albumin [Mass/Vol] 3.7 g/dL Normal 3.2-5.0 [facility] Comment on above: Performed By: #### L 3100.5440, L500.4050, L503.0105, L506.1000, L501.5101, L803.2200, L3300.1200, L800.1280, L3100.7870 ####[facility] [address] [place], [place], [id number] Albumin/Globulin [Mass ratio] 0.8 {ratio} Low 0.9-2.4 [facility] Comment on above: Performed By: #### L 3100.5440, L500.4050, L503.0105, L506.1000, L501.5101, L803.2200, L3300.1200, L800.1280, L3100.7870 ####[facility] [address] [place], [address] ALK P 106 U/L Normal 45-117 [facility] Comment on above: Performed By: #### L 3100.5440, L500.4050, L503.0105, L506.1000, L501.5101, L803.2200, L3300.1200, L800.1280, L3100.7870 ####[facility] [address] [place], [address] ALT [Catalytic activity/Vol] 36 U/L Normal 13-56 [facility] Comment on above: Performed By: #### L 3100.5440, L500.4050, L503.0105, L506.1000, L501.5101, L803.2200, L3300.1200, L800.1280, L3100.7870 ####[facility] [address] [place], [address] AST [Catalytic activity/Vol] 28 U/L Normal 15-37 [facility] Comment on above: Performed By: #### L 3100.5440, L500.4050, L503.0105, L506.1000, L501.5101, L803.2200, L3300.1200, L800.1280, L3100.7870 ####[facility] [address] [place], [address] Bilirubin [Mass/Vol] 0.40 mg/dL Normal 0.20-1.00 [facility] Comment on above: Result Comment: For patients on eltrombopag therapy, use of Dim[place] TBIL is not recommended. Performed By: #### L 3100.5440, L500.4050, L503.0105, L506.1000, L501.5101, L803.2200, L3300.1200, L800.1280, L3100.7870 ####[facility] [address] [place], [address] BUN/CRE 14.0 RATIO Normal 10-20 [facility] Comment on above: Performed By: #### L 3100.5440, L500.4050, L503.0105, L506.1000, L501.5101, L803.2200, L3300.1200, L800.1280, L3100.7870 ####[facility] [address] [place], [address] CA,Total 9.5 mg/dL Normal 8.5-10.1 [facility] Comment on above: Performed By: #### L 3100.5440, L500.4050, L503.0105, L506.1000, L501.5101, L803.2200, L3300.1200, L800.1280, L3100.7870 ####[facility] [address] [place], [address] Chloride [Moles/Vol] 101 mmol/L Normal 98-107 [facility] Comment on above: Performed By: #### L 3100.5440, L500.4050, L503.0105, L506.1000, L501.5101, L803.2200, L3300.1200, L800.1280, L3100.7870 ####[facility] [address] [place], [address] CO2 [Moles/Vol] 26.0 mmol/L Normal 21.0-32.0 [facility] Comment on above: Performed By: #### L 3100.5440, L500.4050, L503.0105, L506.1000, L501.5101, L803.2200, L3300.1200, L800.1280, L3100.7870 ####[facility] [address] [place], [address] Creatinine [Mass/Vol] 1.50 mg/dL High 0.55-1.02 [facility] Comment on above: Result Comment: The validity of the calculated GFR GFRAA in patients over70 years has not been determined. Clinical correlation isessential. Performed By: #### L 3100.5440, L500.4050, L503.0105, L506.1000, L501.5101, L803.2200, L3300.1200, L800.1280, L3100.7870 ####[facility] [address] [place], [address] EST GFR - AA 50 mL/min Low >60 [facility] Comment on above: Result Comment: Afri can Trinidadian GFR Calc Performed By: #### L 3100.5440, L500.4050, L503.0105, L506.1000, L501.5101, L803.2200, L3300.1200, L800.1280, L3100.7870 ####[facility] [address] [place], [address] GAP 8 Normal 5-15 [facility] Comment on above: Performed By: #### L 3100.5440, L500.4050, L503.0105, L506.1000, L501.5101, L803.2200, L3300.1200, L800.1280, L3100.7870 ####[facility] [address] [place], [place], [id number] GFR/1.73 sq M.predicted among non-blacks MDRD (S/P/Bld) [Vol rate/Area] 42 mL/min/{1.73_m2} Low >60 [facility] Comment on above: Result Comment: Non- GFR Calc Performed By: #### L 3100.5440, L500.4050, L503.0105, L506.1000, L501.5101, L803.2200, L3300.1200, L800.1280, L3100.7870 ####[facility] [address] [place], [address] Globulin (S) [Mass/Vol] 4.5 g/dL High 2.2-4.2 [facility] Comment on above: Performed By: #### L 3100.5440, L500.4050, L503.0105, L506.1000, L501.5101, L803.2200, L3300.1200, L800.1280, L3100.7870 ####[facility] [address] [place], [address] Glucose [Mass/Vol] 100 mg/dL Normal 74-106 [facility] Comment on above: Result Comment: Fast ing Glucose result from 100 to 125 mg/dLsuggests IMPAIRED HOMEOSTASIS per A.D.A. criteria. Performed By: #### L 3100.5440, L500.4050, L503.0105, L506.1000, L501.5101, L803.2200, L3300.1200, L800.1280, L3100.7870 ####[facility] [address] [place] [place], [address] Potassium [Moles/Vol] 3.7 mmol/L Normal 3.5-5.1 [facility] Comment on above: Performed By: #### L 3100.5440, L500.4050, L503.0105, L506.1000, L501.5101, L803.2200, L3300.1200, L800.1280, L3100.7870 ####[facility] [address] [place], [address] Sodium [Moles/Vol] 135 mmol/L Low 136-145 [facility] Comment on above: Performed By: #### L 3100.5440, L500.4050, L503.0105, L506.1000, L501.5101, L803.2200, L3300.1200, L800.1280, L3100.7870 ####[facility] [address] [place], [address] T PROT 8.2 g/dL Normal 6.4-8.2 [facility] Comment on above: Performed By: #### L 3100.5440, L500.4050, L503.0105, L506.1000, L501.5101, L803.2200, L3300.1200, L800.1280, L3100.7870 ####[facility] [address] [place], [address] Urea nitrogen [Mass/Vol] 21 mg/dL High 7-18 [facility] Comment on above: Performed By: #### L 3100.5440, L500.4050, L503.0105, L506.1000, L501.5101, L803.2200, L3300.1200, L800.1280, L3100.7870 ####[facility] [address] [facility] [place], [address] DNA double strand Ab Qn (S)O rdered By: Ashley Caruso on 03-03-2024 Anti-Double Strand DNA Antibody 1 IU/mL 0-9 [facility] Comment on above: Negative <5 Equivoca l 5 - 9 Positive >9Previous reported result: TNP IU/mLEdited by: SHAHEEN on 03/06/24:1306 AMENDED REPORT 03/06/24 1306 dsDNA AB previously reported as: Test not performed Estimated glomerular filtrat ion rate (GFR) AmericanOrdered By: Ashley Caruso on 03-03-2024 Estimated GFR (MDRD) Amer 50 mL/min Low >60 [facility] Comment on above: GFR Calc Gamma glutamyl transferase ( GGT) measurementOrdered By: Ashley Caruso on 03-03-2024 Amylase [Catalytic activity/Vol] 26 U/L 0-60 [facility] Comment on above: Performed at: [address], [place], [place] [id number] Director: Juan C Valladares PhD, Phone: [phone] Gastroenterology Visit Repor ton 03-03-2024 Gastroenterology Visit Report Normal [facility] Glomerular filtration rate ( GFR) estimationOrdered By: Ashley Caruso on 03-03-2024 Estimated GFR (MDRD) Non-Af Amer 42 mL/min Low >60 [facility] Comment on above: Non- GFR Calc Glucose measurementOrdered B y: Ashley Caruso on 03-03-2024 Glucose [Mass/Vol] 100 mg/dL 74-106 [facility] Comment on above: Fasting Glucose resu lt from 100 to 125 mg/dL suggests IMPAIRED HOMEOSTASIS per A.D.A. criteria. Carmen-1 antibody assayOrdered B y: Ashley Caruso on 03-03-2024 CARMEN-1 Antibody <0.2 AI 0.0-0.9 [facility] Comment on above: Previous reported re sult: TNP AIEdited by: SHAHEEN on 03/06/24:1306 AMENDED REPORT 03/06/24 1306 ANTI-CARMEN previously reported as: Test not performed Laboratory - Chemistry and C hemistry - challengeOrdered By: Ashley Caruso on 03-03-2024 AST [Catalytic activity/Vol] 28 U/L 15-37 [facility] Lactoferrin IA Ql (Stl)Order ed By: Ashley Caruso on 03-03-2024 Stool Lactoferrin [facility] Mitochondria Ab Ql (S)Ordere d By: Ashley Caruso on 03-03-2024 Anti-Mitochondrial Antibody <20.0 Units 0.0-20.0 [facility] Comment on above: Negative 0.0 - 20.0 Equivocal 20.1 - 24.9 Positive >24.9Mitochondrial (M2) Antibodies are found in 90-96% ofpatients with primary biliary cirrhosis. Neutrophil cytoplasmic Ab.cl assic Qn (S)Ordered By: Ashley Caruso on 03-03-2024 Cytoplasmic ANCA (c-ANCA) Antibody <1:20 titer Neg:<1:20 [facility] Neutrophil cytoplasmic Ab.pe rinuclear IF (S) [Titer]Ordered By: Ashley Caruso on 03-03-2024 Perinuclear ANCA (p-ANCA) Antibody <1:20 titer Neg:<1:20 [facility] Comment on above: The presence of posi tive fluorescence exhibiting P-ANCA orC-ANCA patterns alone is not specific for the diagnosis ofWegener's Granulomatosis (WG) or microscopic polyangiitis.Decisions about treatment should not be based solely onANCA IFA results. The International ANCA Group Consensusrecommends follow up testing of positive sera with both WY-3 and MPO-ANCA enzyme immunoassays. As many as 5% serumsamples are positive only by EIA. Ref. AM J Clin [id number];111:507-513. Potassium measurementOrdered By: Ashley Caruso on 03-03-2024 Potassium [Moles/Vol] 3.7 mmol/L 3.5-5.1 [facility] FANCY STITCHER abOrdered By: Ashley hidalgo on 03-03-2024 FANCY STITCHER Antibody <0.2 AI 0.0-0.9 [facility] Comment on above: Previous reported re sult: TNP AIEdited by: SHAHEEN on 03/06/24:1306 AMENDED REPORT 03/06/24 1306 FANCY STITCHER Ab previously reported as: Test not performed SCL-70 extractable nuclear A b Qn (S)Ordered By: Ashley Caruso on 03-03-2024 Scl-70 (Scleroderma) Antibody <0.2 AI 0.0-0.9 [facility] Comment on above: Previous reported re sult: TNP AIEdited by: SHAHEEN on 03/06/24:1306 AMENDED REPORT 03/06/24 1306 ANTISCLER previously reported as: Test not performed SS-A IgG antibody assayOrder ed By: Ashley Caruso on 03-03-2024 SS-A/Ro IgG Antibody < 0.2 AI 0.0-0.9 [facility] Comment on above: Previous reported re sult: TNP AIEdited by: SHAHEEN on 03/06/24:1306 AMENDED REPORT 03/06/24 1306 Anti-SS-A previously reported as: Test not performed SS-B IgG antibody assayOrder ed By: Ashley Caruso on 03-03-2024 SS-B/La IgG Antibody < 0.2 AI 0.0-0.9 [facility] Comment on above: Previous reported re sult: TNP AIEdited by: SHAHEEN on 03/06/24:1306 AMENDED REPORT 03/06/24 1748 Anti-SS-B previously reported as: Test not performed Serum anion gap measurementO rdered By: Ashley Caruso on 03-03-2024 Anion gap [Moles/Vol] 8 mmol/L 5-15 [facility] Serum globulin measurementOr dered By: Ashley Caruso on 03-03-2024 Globulin (S) [Mass/Vol] 4.5 g/dL High 2.2-4.2 [facility] Serum or plasma alanine mendieta otransferase (ALT) measurementOrdered By: Ashley Caruso on 03-03-2024 ALT [Catalytic activity/Vol] 36 U/L 13-56 [facility] Serum or plasma albumin joselyn urement (mass/volume)Ordered By: Ashley Caruso on 03-03-2024 Albumin [Mass/Vol] 3.7 g/dL 3.2-5.0 [facility] Serum or plasma alkaline samantha sphatase measurementOrdered By: Ashley Caruso on 03-03-2024 ALP [Catalytic activity/Vol] 106 U/L 45-117 [facility] Serum or plasma calcium joselyn urement (mass/volume)Ordered By: Ashley Caruso on 03-03-2024 Calcium [Mass/Vol] 9.5 mg/dL 8.5-10.1 [facility] Serum or plasma creatinine m easurement (mass/volume)Ordered By: Ashley Caruso on 03-03-2024 Creatinine [Mass/Vol] 1.50 mg/dL High 0.55-1.02 [facility] Comment on above: The validity of the calculated GFR & GFRAA in patients over 70 years has not been determined. Clinical correlation is essential. Serum or plasma urea nitroge n measurement (mass/volume)Ordered By: Ashley Caruso on 03-03-2024 Urea nitrogen [Mass/Vol] 21 mg/dL High 7-18 [facility] Villagomez antibody assayOrdered By: Ashley Caruso on 03-03-2024 SM Antibody <0.2 AI 0.0-0.9 [facility] Comment on above: Previous reported re sult: TNP AIEdited by: SHAHEEN on 03/06/24:1306 AMENDED REPORT 03/06/24 1306 RAFFAELE Ab previously reported as: Test not performed Sodium levelOrdered By: Norma Caruso on 03-03-2024 Sodium [Moles/Vol] 135 mmol/L Low 136-145 [facility] Stool Lactoferrin/WBCon 02-10 WBCST Normal Reference Ran ge = Negative Fecal WBC Lactoferrin A Positive: Fecal WBC Lactoferrin present A Normal [facility] Comment on above: Performed By: #### M 100.0605, L7000.0700 ####[facility] [address] [facility] [place], [place], [id number] Total proteinOrdered By: Ivette Caruso on 03-03-2024 Protein [Mass/Vol] 8.2 g/dL 6.4-8.2 [facility] Vitamin B12on 03-03-2024 Cobalamin (Vitamin B12) [Mass/Vol] 863 pg/mL Normal [facility] Comment on above: Performed By: #### L 3100.5440, L500.4050, L503.0105, L506.1000, L501.5101, L803.2200, L3300.1200, L800.1280, L3100.7870 ####[facility] [address] [facility] [place], [place], [id number] Vitamin B12 measurementOrder ed By: Ashley Caruso on 03-03-2024 Cobalamin (Vitamin B12) [Mass/Vol] 863 pg/mL [facility] Vitamin D,25 Hydroxyon 03-03 Vitamin D 25-OH 30.0 ng/mL Normal [facility] Comment on above: Result Comment: Molly min D 25(OH) Status Range Deficiency <20 ng/mL (50nmol/L) Insufficiency 20 - 30 ng/mL (50 - 75 nmol/L) Sufficiency 30 - 100 ng/mL (75 - 250 nmol/L) Toxicity >100 ng/mL (>250 nmol/L) Performed By: #### L 3100.5440, L500.4050, L503.0105, L506.1000, L501.5101, L803.2200, L3300.1200, L800.1280, L3100.7870 ####[facility] [address] [place], [address] 12 Lead EKGon 02-29-2024 12 Lead EKG Normal [facility] Absolute neutrophil countOrd ered By: Jose Guadalupe Lazo on 02-29-2024 Neutrophils (Bld) [#/Vol] 12.4 10*3/uL High 2.0-7.7 [facility] Atypical lymphocyte percenta geOrdered By: Jose Guadalupe Lazo on 02-29-2024 Atypical Lymphocytes 1+ % [facility] Basic Metabolic Profile (BMP )on 02-29-2024 BUN/CRE 11.2 RATIO Normal 12-29 [facility] Comment on above: Order Comment: 'TROP ' Serial specimen #1, #2 or #3: 1 Performed By: #### L 500.2500, L501.4020, L100.0100 ####[facility] [address] [place], [address] CA,Total 9.2 mg/dL Normal 8.5-10.1 [facility] Comment on above: Order Comment: 'TROP ' Serial specimen #1, #2 or #3: 1 Performed By: #### L 500.2500, L501.4020, L100.0100 ####[facility] [address] [place], [address] Chloride [Moles/Vol] 107 mmol/L Normal 98-107 [facility] Comment on above: Order Comment: 'TROP ' Serial specimen #1, #2 or #3: 1 Performed By: #### L 500.2500, L501.4020, L100.0100 ####[facility] [address] [place], [address] CO2 [Moles/Vol] 24.0 mmol/L Normal 21.0-32.0 [facility] Comment on above: Order Comment: 'TROP ' Serial specimen #1, #2 or #3: 1 Performed By: #### L 500.2500, L501.4020, L100.0100 ####[facility] [address] [place], [address] Creatinine [Mass/Vol] 1.16 mg/dL High 0.55-1.02 [facility] Comment on above: Order Comment: 'TROP ' Serial specimen #1, #2 or #3: 1 Result Comment: The validity of the calculated GFR GFRAA in patients over70 years has not been determined. Clinical correlation isessential. Performed By: #### L 500.2500, L501.4020, L100.0100 ####[facility] [address] [place], [address] ECRCL 38.04 ml/min Normal [facility] Comment on above: Order Comment: 'TROP ' Serial specimen #1, #2 or #3: 1 Performed By: #### L 500.2500, L501.4020, L100.0100 ####[facility] [address] [place], [address] EST GFR - AA 68 mL/min Normal >60 [facility] Comment on above: Order Comment: 'TROP ' Serial specimen #1, #2 or #3: 1 Result Comment: Afri can Trinidadian GFR Calc Performed By: #### L 500.2500, L501.4020, L100.0100 ####[facility] [address] [place], [address] GAP 6 Normal 5-15 [facility] Comment on above: Order Comment: 'TROP ' Serial specimen #1, #2 or #3: 1 Performed By: #### L 500.2500, L501.4020, L100.0100 ####[facility] [address] [place], [address] GFR/1.73 sq M.predicted among non-blacks MDRD (S/P/Bld) [Vol rate/Area] 56 mL/min/{1.73_m2} Low >60 [facility] Comment on above: Order Comment: 'TROP ' Serial specimen #1, #2 or #3: 1 Result Comment: Non- GFR Calc Performed By: #### L 500.2500, L501.4020, L100.0100 ####[facility] [address] [place], [address] Glucose [Mass/Vol] 101 mg/dL Normal 74-106 [facility] Comment on above: Order Comment: 'TROP ' Serial specimen #1, #2 or #3: 1 Result Comment: Fast ing Glucose result from 100 to 125 mg/dLsuggests IMPAIRED HOMEOSTASIS per A.D.A. criteria. Performed By: #### L 500.2500, L501.4020, L100.0100 ####[facility] [address] [place], [address] Potassium [Moles/Vol] 3.1 mmol/L Low 3.5-5.1 [facility] Comment on above: Order Comment: 'TROP ' Serial specimen #1, #2 or #3: 1 Performed By: #### L 500.2500, L501.4020, L100.0100 ####[facility] [address] [place], [address] Sodium [Moles/Vol] 137 mmol/L Normal 136-145 [facility] Comment on above: Order Comment: 'TROP ' Serial specimen #1, #2 or #3: 1 Performed By: #### L 500.2500, L501.4020, L100.0100 ####[facility] [address] [place], [address] Urea nitrogen [Mass/Vol] 13 mg/dL Normal 7-18 [facility] Comment on above: Order Comment: 'TROP ' Serial specimen #1, #2 or #3: 1 Performed By: #### L 500.2500, L501.4020, L100.0100 ####[facility] [address] [place], [address] Blood lymphocytes/100 leukoc ytesOrdered By: Jose Guadalupe Lazo on 02-29-2024 Lymphocytes/100 WBC (Bld) 12 % Low 19-41 [facility] Blood metamyelocytes/100 belinda kocytesOrdered By: Jose Guadalupe Lazo on 02-29-2024 Metamyelocytes/100 WBC (Bld) 2 % High 0-1 [facility] Blood monocytes/100 leukocyt esOrdered By: Jose Guadalupe Lazo on 02-29-2024 Monocytes/100 WBC (Bld) 4 % 0-10 [facility] Blood urea nitrogen (BUN)/cr eatinine ratioOrdered By: Jose Guadalupe Lazo on 02-29-2024 Urea nitrogen/Creatinine [Mass ratio] 11.2 mg/mg 12-29 [facility] Carbon dioxide measurementOr dered By: Jose Guadalupe Lazo on 02-29-2024 CO2 [Moles/Vol] 24.0 mmol/L 21.0-32.0 [facility] Cells counted Molgen (Bld/Ti ss) [#]Ordered By: Jose Guadalupe Lazo on 02-29-2024 Differential Total Cells Counted 100 MANUAL DIFF [facility] Chloride measurementOrdered By: Jose Guadalupe Lazo on 02-29-2024 Chloride [Moles/Vol] 107 mmol/L 98-107 [facility] Emergency Department Summary on 02-29-2024 Emergency Department Summary Normal [facility] Erythrocyte distribution wid th ratioOrdered By: Jose Guadalupe Lazo on 02-29-2024 Erythrocyte distribution width (RBC) [Ratio] 14.1 % 11.6-14.6 [facility] Erythrocyte distribution wid th standard deviationOrdered By: Jose Guadalupe Lazo on 02-29-2024 Erythrocyte distribution width (RBC) [Entitic vol] 43.1 fL 35.1-43.9 [facility] Estimated glomerular filtrat ion rate (GFR) AmericanOrdered By: Jose Guadalupe Lazo on 02-29-2024 Estimated GFR (MDRD) Amer 68 mL/min >60 [facility] Comment on above: GFR Calc Estimation of creatinine sammie aranceOrdered By: Jose Guadalupe Lazo on 02-29-2024 Estimated Creatinine Clearance Calc 38.04 ml/min [facility] Glomerular filtration rate ( GFR) estimationOrdered By: Jose Guadalupe Lazo on 02-29-2024 Estimated GFR (MDRD) Non-Af Amer 56 mL/min Low >60 [facility] Comment on above: Non- GFR Calc Glucose measurementOrdered B y: Jose Guadalupe Lazo on 02-29-2024 Glucose [Mass/Vol] 101 mg/dL 74-106 [facility] Comment on above: Fasting Glucose resu lt from 100 to 125 mg/dL suggests IMPAIRED HOMEOSTASIS per A.D.A. criteria. Hematocrit Auto (Bld) [Volum e fraction]Ordered By: Jose Guadalupe Lazo on 02-29-2024 Hematocrit (Bld) [Volume fraction] 49.7 % High 37-47 [facility] Hemoglobin measurementOrdere d By: Jose Guadalupe Lazo on 02-29-2024 Hemoglobin (Bld) [Mass/Vol] 16.5 g/dL High 12.0-15.0 [facility] L501.4020on 02-29-2024 TROPONIN-I HS < 3 Low 3.0-54.0 [facility] Comment on above: Order Comment: 'TROP ' Serial specimen #1, #2 or #3: 1 Result Comment: Beatriz person Note: New Test Units and Gender Specific Reference Ranges. For more information see Policy Stat Procedure [place] High Sensitivity Troponin (TNIH) and attachments. Performed By: #### L 500.2500, L501.4020, L100.0100 ####[facility] [address] [place], [place], [id number] Laboratory - Hematology and Cell countsOrdered By: Jose Guadalupe Lazo on 02-29-2024 Anisocytosis Ql (Bld) 1+ [facility] Lymphocytes Auto (Unsp spec) [#/Vol]Ordered By: Jose Guadalupe Lazo on 02-29-2024 Lymphocytes (Bld) [#/Vol] 1.86 10*3/uL 0.83-4.51 [facility] MCV (mean corpuscular volume ) determinationOrdered By: Jose Guadalupe Lazo on 02-29-2024 MCV (RBC) [Entitic vol] 85.8 fL 81-99 [facility] Mean corpuscular hemoglobin (MCH) determinationOrdered By: Jose Guadalupe Lazo on 02-29-2024 MCH (RBC) [Entitic mass] 28.5 pg 27.0-32.0 [facility] Mean corpuscular hemoglobin concentration (MCHC) determinationOrdered By: Jose Guadalupe Lazo on 02-29-2024 MCHC (RBC) [Mass/Vol] 33.2 g/dL 32-36 [facility] Mean platelet volume determi nationOrdered By: Jose Guadalupe Lazo on 02-29-2024 Platelet mean volume (Bld) [Entitic vol] 9.0 fL 6.2-12.0 [facility] Myelocyte %Ordered By: Jose Guadalupe Lazo on 02-29-2024 Myelocytes/100 WBC (Bld) 2 % High 0-0 [facility] Neutrophil percentageOrdered By: Jose Guadalupe Lazo on 02-29-2024 Neutrophils (%) (Auto) Not Reportable [facility] Neutrophils.hypersegmented ( Bld) [#/Vol]Ordered By: Jose Guadalupe Lazo on 02-29-2024 Hypersegmented Neutrophils 1+ High [facility] Pathologist review Nick (Unsp spec) [Interp]Ordered By: Jose Guadalupe Lazo on 02-29-2024 Differential Pathologist's Review Reviewed [facility] Comment on above: Previous reported re sult: Kirstin vora Edited by: HERMAN on 03/04/24:1024Neutrophilic leukocytosis with left shiftPolycythemiaLeukocytosis.Clinical correlation necessary.Herminio Kelly M.D. 03/04/24Pathologist comment added AMENDED REPORT 03/04/24 1024 PATH REV previously reported as: Kirstin vora Previous reported result: Reviewed Edited by: HERMAN on 03/04/24:1029Neutrophilic leukocytosis with left shiftPolycythemiaThrombocytosis.Clinical correlation necessary.Herminio Kelly M.D. 03/04/24Pathologist comment added AMENDED REPORT 03/04/24 1029 PATH REV previously reported as: Reviewed Platelet countOrdered By: Santy Lazo on 02-29-2024 Platelets (Bld) [#/Vol] 545 10*3/uL High 150-450 [facility] Platelet morphology finding Nom (Bld)Ordered By: Jose Guadalupe Lazo on 02-29-2024 Platelet Morphology Comment LARGE [facility] Polychromasia LM Ql (Bld)Ord ered By: Jose Guadalupe Lazo on 02-29-2024 Polychromasia 1+ [facility] Potassium measurementOrdered By: Jose Guadalupe Lazo on 02-29-2024 Potassium [Moles/Vol] 3.1 mmol/L Low 3.5-5.1 [facility] RBC Auto (Bld) [#/Vol]Ordere d By: Jose Guadalupe Lazo on 02-29-2024 RBC (Bld) [#/Vol] 5.79 10*6/uL High 4.2-5.4 [facility] Segmented neutrophils/100 WB C (Bld)Ordered By: Jose Guadalupe Lazo on 02-29-2024 Neutrophils/100 WBC (Bld) 80 % High 47-70 [facility] Serum anion gap measurementO rdered By: Jose Guadalupe Lazo on 02-29-2024 Anion gap [Moles/Vol] 6 mmol/L 5-15 [facility] Serum or plasma calcium joselyn urement (mass/volume)Ordered By: Jose Guadalupe Lazo on 02-29-2024 Calcium [Mass/Vol] 9.2 mg/dL 8.5-10.1 [facility] Serum or plasma creatinine m easurement (mass/volume)Ordered By: Jose Guadalupe Lazo on 02-29-2024 Creatinine [Mass/Vol] 1.16 mg/dL High 0.55-1.02 [facility] Comment on above: The validity of the calculated GFR & GFRAA in patients over 70 years has not been determined. Clinical correlation is essential. Serum or plasma urea nitroge n measurement (mass/volume)Ordered By: Jose Guadalupe Lazo on 02-29-2024 Urea nitrogen [Mass/Vol] 13 mg/dL 7-18 [facility] Sodium levelOrdered By: Jose Guadalupe Lazo on 02-29-2024 Sodium [Moles/Vol] 137 mmol/L 136-145 [facility] Troponin IOrdered By: Jose Guadalupe monte on 02-29-2024 Troponin I High Sensitivity < 3 pg/mL Low 3.0-54.0 [facility] Comment on above: Please Note: New Saira t Units and Gender Specific Reference Ranges. For more information see Policy Stat Procedure [facility] High Sensitivity Troponin (TNIH) and attachments. White blood cell (WBC) count Ordered By: Jose Guadalupe Lazo on 02-29-2024 WBC (Bld) [#/Vol] 15.5 10*3/uL High 4.4-11.0 [facility] Influenza virus A and B and SARS-CoV-2 (COVID-19) and Respiratory syncytial virus RNAOrdered By: Antonio Roman on 02-21-2024 SARS-CoV-2 (COVID-19) RNA ISAK+probe Ql (Unsp spec) [facility] Internal Medicine Office Vis iton 02-21-2024 Internal Medicine Office Visit Normal [facility] M100.678on 02-21-2024 M100.678 Pending SARS-CoV-2 (COVID 19) Negative INFLUENZA A Negative INFLUENZA B Negative RSV PCR Negative Normal [facility] Comment on above: Performed By: #### M 100.678 ####[facility] [address] [place], [place], [id number] Albumin to globulin ratioOrd ered By: Ildefonso Duran on 02-07-2024 Albumin/Globulin [Mass ratio] 0.7 {ratio} Low 0.9-2.4 [facility] Bilirubin, totalOrdered By: Ildefonso Duran on 02-07-2024 Bilirubin [Mass/Vol] 0.40 mg/dL 0.20-1.00 [facility] Comment on above: For patients on eltr ombopag therapy, use of Dimension [place] TBIL is not recommended. Blood urea nitrogen (BUN)/cr eatinine ratioOrdered By: Ildefonso Duran on 02-07-2024 Urea nitrogen/Creatinine [Mass ratio] 12.8 mg/mg 10-20 [facility] CBC-Complete Blood Cnt No Di ffon 02-07-2024 Erythrocyte distribution width (RBC) [Ratio] 13.3 % Normal 11.6-14.6 [facility] Comment on above: Performed By: #### L 100.0500, L500.4050, L501.5425 ####[facility] [address] [place], [address] Hematocrit (Bld) [Volume fraction] 45.8 % Normal 37-47 [facility] Comment on above: Performed By: #### L 100.0500, L500.4050, L501.5425 ####[facility] [address] [place], [address] Hemoglobin (Bld) [Mass/Vol] 16.0 g/dL High 12.0-15.0 [facility] Comment on above: Performed By: #### L 100.0500, L500.4050, L501.5425 ####[facility] [address] [place], [address] MCH (RBC) [Entitic mass] 28.8 pg Normal 27.0-32.0 [facility] Comment on above: Performed By: #### L 100.0500, L500.4050, L501.5425 ####[facility] [address] [place], [address] MCHC (RBC) [Mass/Vol] 34.9 g/dL Normal 32-36 [facility] Comment on above: Performed By: #### L 100.0500, L500.4050, L501.5425 ####[facility] [address] [place], [address] MCV (RBC) [Entitic vol] 82.4 fL Normal 81-99 [facility] Comment on above: Performed By: #### L 100.0500, L500.4050, L501.5425 ####[facility] [address] [place], [address] Platelet mean volume (Bld) [Entitic vol] 9.1 fL Normal 6.2-12.0 [facility] Comment on above: Performed By: #### L 100.0500, L500.4050, L501.5425 ####[facility] [address] [place], [address] Platelets (Bld) [#/Vol] 486 10*3/uL High 150-450 [facility] Comment on above: Performed By: #### L 100.0500, L500.4050, L501.5425 ####[facility] [address] [place], [address] RBC (Bld) [#/Vol] 5.56 10*6/uL High 4.2-5.4 [facility] Comment on above: Performed By: #### L 100.0500, L500.4050, L501.5425 ####[facility] [address] [place], [address] RDW SD 39.2 fl Normal 35.1-43.9 [facility] Comment on above: Performed By: #### L 100.0500, L500.4050, L501.5425 ####[facility] [address] [place], [address] WBC (Bld) [#/Vol] 13.1 10*3/uL High 4.4-11.0 [facility] Comment on above: Performed By: #### L 100.0500, L500.4050, L501.5425 ####[facility] [address] [place], [address] Carbon dioxide measurementOr dered By: Ildefonso Duran on 02-07-2024 CO2 [Moles/Vol] 21.0 mmol/L 21.0-32.0 [facility] Chest 1 View (Portable)on Chest 1 View (Portable) Normal [facility] Chloride measurementOrdered By: Ildefonso Duran on 02-07-2024 Chloride [Moles/Vol] 101 mmol/L 98-107 [facility] Comprehensive Metabolic Prof ilon 02-07-2024 Albumin [Mass/Vol] 3.3 g/dL Normal 3.2-5.0 [facility] Comment on above: Order Comment: 1Y Performed By: #### L 100.0500, L500.4050, L501.5425 ####[facility] [address] [place], [address] Albumin/Globulin [Mass ratio] 0.7 {ratio} Low 0.9-2.4 [facility] Comment on above: Order Comment: 1Y Performed By: #### L 100.0500, L500.4050, L501.5425 ####[facility] [address] [place], [address] ALK P 142 U/L High 45-117 [facility] Comment on above: Order Comment: 1Y Performed By: #### L 100.0500, L500.4050, L501.5425 ####[facility] [address] [place], [address] ALT [Catalytic activity/Vol] 38 U/L Normal 13-56 [facility] Comment on above: Order Comment: 1Y Performed By: #### L 100.0500, L500.4050, L501.5425 ####[facility] [address] [place], [address] AST [Catalytic activity/Vol] 31 U/L Normal 15-37 [facility] Comment on above: Order Comment: 1Y Performed By: #### L 100.0500, L500.4050, L501.5425 ####[facility] [address] [place], [address] Bilirubin [Mass/Vol] 0.40 mg/dL Normal 0.20-1.00 [facility] Comment on above: Order Comment: 1Y Result Comment: For patients on eltrombopag therapy, use of Dimension [place] TBIL is not recommended. Performed By: #### L 100.0500, L500.4050, L501.5425 ####[facility] [address] [place], [address] BUN/CRE 12.8 RATIO Normal 10-20 [facility] Comment on above: Order Comment: 1Y Performed By: #### L 100.0500, L500.4050, L501.5425 ####[facility] [address] [place], [address] CA,Total 9.2 mg/dL Normal 8.5-10.1 [facility] Comment on above: Order Comment: 1Y Performed By: #### L 100.0500, L500.4050, L501.5425 ####[facility] [address] [place], [address] Chloride [Moles/Vol] 101 mmol/L Normal 98-107 [facility] Comment on above: Order Comment: 1Y Performed By: #### L 100.0500, L500.4050, L501.5425 ####[facility] [address] [place], [address] CO2 [Moles/Vol] 21.0 mmol/L Normal 21.0-32.0 [facility] Comment on above: Order Comment: 1Y Performed By: #### L 100.0500, L500.4050, L501.5425 ####[facility] [address] [place], [address] Creatinine [Mass/Vol] 1.33 mg/dL High 0.55-1.02 [facility] Comment on above: Order Comment: 1Y Result Comment: The validity of the calculated GFR GFRAA in patients over70 years has not been determined. Clinical correlation isessential. Performed By: #### L 100.0500, L500.4050, L501.5425 ####[facility] [address] [place], [address] ECRCL 33.18 ml/min Normal [facility] Comment on above: Order Comment: 1Y Performed By: #### L 100.0500, L500.4050, L501.5425 ####[facility] [address] [place], [address] EST GFR - AA 58 mL/min Low >60 [facility] Comment on above: Order Comment: 1Y Result Comment: Afri can Trinidadian GFR Calc Performed By: #### L 100.0500, L500.4050, L501.5425 ####[facility] [address] [place], [address] GAP 9 Normal 5-15 [facility] Comment on above: Order Comment: 1Y Performed By: #### L 100.0500, L500.4050, L501.5425 ####[facility] [address] [place], [address] GFR/1.73 sq M.predicted among non-blacks MDRD (S/P/Bld) [Vol rate/Area] 48 mL/min/{1.73_m2} Low >60 [facility] Comment on above: Order Comment: 1Y Result Comment: Non- GFR Calc Performed By: #### L 100.0500, L500.4050, L501.5425 ####[facility] [address] [place], [address] Globulin (S) [Mass/Vol] 4.7 g/dL High 2.2-4.2 [facility] Comment on above: Order Comment: 1Y Performed By: #### L 100.0500, L500.4050, L501.5425 ####[facility] [address] [place], [address] Glucose [Mass/Vol] 97 mg/dL Normal 74-106 [facility] Comment on above: Order Comment: 1Y Performed By: #### L 100.0500, L500.4050, L501.5425 ####[facility] [address] [place], [address] Potassium [Moles/Vol] 4.0 mmol/L Normal 3.5-5.1 [facility] Comment on above: Order Comment: 1Y Performed By: #### L 100.0500, L500.4050, L501.5425 ####[facility] [address] [place], [address] Sodium [Moles/Vol] 131 mmol/L Low 136-145 [facility] Comment on above: Order Comment: 1Y Performed By: #### L 100.0500, L500.4050, L501.5425 ####[facility] [address] [place], [address] T PROT 8.0 g/dL Normal 6.4-8.2 [facility] Comment on above: Order Comment: 1Y Performed By: #### L 100.0500, L500.4050, L501.5425 ####[facility] [address] [place], [address] Urea nitrogen [Mass/Vol] 17 mg/dL Normal 7-18 [facility] Comment on above: Order Comment: 1Y Performed By: #### L 100.0500, L500.4050, L501.5425 ####[facility] [address] [place], [address] D-Dimer Quantitative (DVT/PE )on 02-07-2024 D-DIMER QUANT < 0.27 Low 0.27-0.49 [facility] Comment on above: Result Comment: NORM AL D-Dimer level (<0.50) indicates no DVT or PE. Performed By: #### L 300.8000 ####[facility] [address] [place], [address] D-dimer measurement for deep venous thrombosisOrdered By: Chad Coleman on 02-07-2024 D-Dimer Quantitative (PE/DVT) < 0.27 FEU/ug/m Low 0.27-0.49 [facility] Comment on above: NORMAL D-Dimer level (<0.50) indicates no DVT or PE. Emergency Department Summary on 02-07-2024 Emergency Department Summary Normal [facility] Erythrocyte distribution wid th ratioOrdered By: Ildefonso Duran on 02-07-2024 Erythrocyte distribution width (RBC) [Ratio] 13.3 % 11.6-14.6 [facility] Erythrocyte distribution wid th standard deviationOrdered By: Ildefonso Duran on 02-07-2024 Erythrocyte distribution width (RBC) [Entitic vol] 39.2 fL 35.1-43.9 [facility] Estimated glomerular filtrat ion rate (GFR) AmericanOrdered By: Ildefonso Duran on 02-07-2024 Estimated GFR (MDRD) Amer 58 mL/min Low >60 [facility] Comment on above: GFR Calc Estimation of creatinine sammie aranceOrdered By: Ildefonso Duran on 02-07-2024 Estimated Creatinine Clearance Calc 33.18 ml/min [facility] Glomerular filtration rate ( GFR) estimationOrdered By: Ildefonso Duran on 02-07-2024 Estimated GFR (MDRD) Non-Af Amer 48 mL/min Low >60 [facility] Comment on above: Non- GFR Calc Glucose measurementOrdered B y: Ildefonso Duran on 02-07-2024 Glucose [Mass/Vol] 97 mg/dL 74-106 [facility] Hematocrit Auto (Bld) [Volum e fraction]Ordered By: Ildefonso Duran on 02-07-2024 Hematocrit (Bld) [Volume fraction] 45.8 % 37-47 [facility] Hemoglobin measurementOrdere d By: Ildefonso Duran on 02-07-2024 Hemoglobin (Bld) [Mass/Vol] 16.0 g/dL High 12.0-15.0 [facility] Influenza virus A and B and SARS-CoV-2 (COVID-19) and Respiratory syncytial virus RNAOrdered By: Ildefonso Duran on 02-07-2024 SARS-CoV-2 (COVID-19) RNA ISAK+probe Ql (Unsp spec) [facility] L501.5425on 02-07-2024 TROPONIN-I HS < 3 Low 3.0-54.0 [facility] Comment on above: Order Comment: 1Y Result Comment: Beatriz person Note: New Test Units and Gender Specific Reference Ranges. For more information see Policy Stat Procedure [place] High Sensitivity Troponin (TNIH) and attachments. Performed By: #### L 100.0500, L500.4050, L501.5425 ####[facility] [address] [place], [address] Laboratory - Chemistry and C hemistry - challengeOrdered By: Ildefonso Duran on 02-07-2024 AST [Catalytic activity/Vol] 31 U/L 15-37 [facility] M100.678on 02-07-2024 M100.678 Pending SARS-CoV-2 (COVID 19) Negative INFLUENZA A Negative INFLUENZA B Negative RSV PCR Negative Normal [facility] Comment on above: Performed By: #### M 100.678 ####[facility] [address] [place], [place], [address] MCV (mean corpuscular volume ) determinationOrdered By: Ildefonso Duran on 02-07-2024 MCV (RBC) [Entitic vol] 82.4 fL 81-99 [facility] Mean corpuscular hemoglobin (MCH) determinationOrdered By: Ildefonso Duran on 02-07-2024 MCH (RBC) [Entitic mass] 28.8 pg 27.0-32.0 [facility] Mean corpuscular hemoglobin concentration (MCHC) determinationOrdered By: Ildefonso Duran on 02-07-2024 MCHC (RBC) [Mass/Vol] 34.9 g/dL 32-36 [facility] Mean platelet volume determi nationOrdered By: Ildefonso Duran on 02-07-2024 Platelet mean volume (Bld) [Entitic vol] 9.1 fL 6.2-12.0 [facility] Platelet countOrdered By: Melly Duran on 02-07-2024 Platelets (Bld) [#/Vol] 486 10*3/uL High 150-450 [facility] Potassium measurementOrdered By: Ildefonso Duran on 02-07-2024 Potassium [Moles/Vol] 4.0 mmol/L 3.5-5.1 [facility] RBC Auto (Bld) [#/Vol]Ordere d By: Ildefonso Duran on 02-07-2024 RBC (Bld) [#/Vol] 5.56 10*6/uL High 4.2-5.4 [facility] Serum anion gap measurementO rdered By: Ildefonso Duran on 02-07-2024 Anion gap [Moles/Vol] 9 mmol/L 5-15 [facility] Serum globulin measurementOr dered By: Ildefonso Duran on 02-07-2024 Globulin (S) [Mass/Vol] 4.7 g/dL High 2.2-4.2 [facility] Serum or plasma alanine mendieta otransferase (ALT) measurementOrdered By: Ildefonso Duran on 02-07-2024 ALT [Catalytic activity/Vol] 38 U/L 13-56 [facility] Serum or plasma albumin joselyn urement (mass/volume)Ordered By: Ildefonso Duran on 02-07-2024 Albumin [Mass/Vol] 3.3 g/dL 3.2-5.0 [facility] Serum or plasma alkaline samantha sphatase measurementOrdered By: Ildefonso Duran on 02-07-2024 ALP [Catalytic activity/Vol] 142 U/L High 45-117 [facility] Serum or plasma calcium joselyn urement (mass/volume)Ordered By: Ildefonso Duran on 02-07-2024 Calcium [Mass/Vol] 9.2 mg/dL 8.5-10.1 [facility] Serum or plasma creatinine m easurement (mass/volume)Ordered By: Ildefonso Duran on 02-07-2024 Creatinine [Mass/Vol] 1.33 mg/dL High 0.55-1.02 [facility] Comment on above: The validity of the calculated GFR & GFRAA in patients over 70 years has not been determined. Clinical correlation is essential. Serum or plasma urea nitroge n measurement (mass/volume)Ordered By: Ildefonso Renee on 02-07-2024 Urea nitrogen [Mass/Vol] 17 mg/dL 7-18 [facility] Sodium levelOrdered By: Med Duran on 02-07-2024 Sodium [Moles/Vol] 131 mmol/L Low 136-145 [facility] Total proteinOrdered By: Miguel javi Duran on 02-07-2024 Protein [Mass/Vol] 8.0 g/dL 6.4-8.2 [facility] Tropinin I.cardiac panel Hig h sensitivity methodOrdered By: Ildefonso Renee on 02-07-2024 Troponin I High Sensitivity < 3 pg/mL Low 3.0-54.0 [facility] Comment on above: Please Note: New Saira t Units and Gender Specific Reference Ranges. For more information see Policy Stat Procedure [place] High Sensitivity Troponin (TNIH) and attachments. White blood cell (WBC) count Ordered By: Ildefonso Renee on 02-07-2024 WBC (Bld) [#/Vol] 13.1 10*3/uL High 4.4-11.0 [facility] Internal Medicine Office Vis iton 01-25-2024 Internal Medicine Office Visit Normal [facility] Urine Cultureon 01-13-2024 URC Presumptive Lactobac illus sp. [place] Count 25,000-50,000 Normal [facility] Comment on above: Performed By: #### M 100.2200 ####[facility] [address] [place], [address] CBC W/Diff, Automatedon Absolute Lymph 2.48 X10 3/uL Normal 0.83-4.51 [facility] Comment on above: Performed By: #### L 501.5200, L501.9520, L100.0100, L700.8000, L500.4050 ####[facility] [address] [place], [address] Absolute Neut 9.3 X10 3/uL High 2.0-7.7 [facility] Comment on above: Performed By: #### L 501.5200, L501.9520, L100.0100, L700.8000, L500.4050 ####[facility] [address] [place], [address] Basophils/100 WBC (Bld) 0.9 % Normal 0-1 [facility] Comment on above: Performed By: #### L 501.5200, L501.9520, L100.0100, L700.8000, L500.4050 ####[facility] [address] [place], [address] Eosinophils/100 WBC (Bld) 1.4 % Normal 0-5 [facility] Comment on above: Performed By: #### L 501.5200, L501.9520, L100.0100, L700.8000, L500.4050 ####[facility] [address] [place], [address] Erythrocyte distribution width (RBC) [Ratio] 13.5 % Normal 11.6-14.6 [facility] Comment on above: Performed By: #### L 501.5200, L501.9520, L100.0100, L700.8000, L500.4050 ####[facility] [address] [place], [address] Hematocrit (Bld) [Volume fraction] 44.6 % Normal 37-47 [facility] Comment on above: Performed By: #### L 501.5200, L501.9520, L100.0100, L700.8000, L500.4050 ####[facility] [address] [place], [address] Hemoglobin (Bld) [Mass/Vol] 15.3 g/dL High 12.0-15.0 [facility] Comment on above: Performed By: #### L 501.5200, L501.9520, L100.0100, L700.8000, L500.4050 ####[facility] [address] [place], [address] IG% 2.900 High 0.0-0.9 [facility] Comment on above: Result Comment: IG% - Immature Granulocytes (promyelocytes, myelocytes andmetamyelocytes) > 1% indicates that a LEFT SHIFT is Present. Performed By: #### L 501.5200, L501.9520, L100.0100, L700.8000, L500.4050 ####[facility] [address] [place], [address] Lymphocytes/100 WBC (Bld) 17.8 % Low 19-41 [facility] Comment on above: Performed By: #### L 501.5200, L501.9520, L100.0100, L700.8000, L500.4050 ####[facility] [address] [place], [address] MCH (RBC) [Entitic mass] 28.3 pg Normal 27.0-32.0 [facility] Comment on above: Performed By: #### L 501.5200, L501.9520, L100.0100, L700.8000, L500.4050 ####[facility] [address] [place], [address] MCHC (RBC) [Mass/Vol] 34.3 g/dL Normal 32-36 [facility] Comment on above: Performed By: #### L 501.5200, L501.9520, L100.0100, L700.8000, L500.4050 ####[facility] [address] [place], [address] MCV (RBC) [Entitic vol] 82.6 fL Normal 81-99 [facility] Comment on above: Performed By: #### L 501.5200, L501.9520, L100.0100, L700.8000, L500.4050 ####[facility] [address] [place], [address] Monocytes/100 WBC (Bld) 10.2 % High 0-10 [facility] Comment on above: Performed By: #### L 501.5200, L501.9520, L100.0100, L700.8000, L500.4050 ####[facility] [address] [place], [address] Neutrophils/100 WBC (Bld) 66.8 % Normal 47-70 [facility] Comment on above: Performed By: #### L 501.5200, L501.9520, L100.0100, L700.8000, L500.4050 ####[facility] [address] [place], [address] Nucleated RBC (Bld) [#/Vol] 0 10*3/uL Normal 0-5 [facility] Comment on above: Performed By: #### L 501.5200, L501.9520, L100.0100, L700.8000, L500.4050 ####[facility] [address] [place], [address] Platelet mean volume (Bld) [Entitic vol] 8.7 fL Normal 6.2-12.0 [facility] Comment on above: Performed By: #### L 501.5200, L501.9520, L100.0100, L700.8000, L500.4050 ####[facility] [address] [place], [address] Platelets (Bld) [#/Vol] 418 10*3/uL Normal 150-450 [facility] Comment on above: Performed By: #### L 501.5200, L501.9520, L100.0100, L700.8000, L500.4050 ####[facility] [address] [place], [address] RBC (Bld) [#/Vol] 5.40 10*6/uL Normal 4.2-5.4 [facility] Comment on above: Performed By: #### L 501.5200, L501.9520, L100.0100, L700.8000, L500.4050 ####[facility] [address] [place], [address] RDW SD 40.4 fl Normal 35.1-43.9 [facility] Comment on above: Performed By: #### L 501.5200, L501.9520, L100.0100, L700.8000, L500.4050 ####[facility] [address] [place], [address] WBC (Bld) [#/Vol] 13.9 10*3/uL High 4.4-11.0 [facility] Comment on above: Performed By: #### L 501.5200, L501.9520, L100.0100, L700.8000, L500.4050 ####[facility] [address] [place], [address] Comprehensive Metabolic Prof [facility] 01-11-2024 Albumin [Mass/Vol] 3.8 g/dL Normal 3.2-5.0 [facility] Comment on above: Performed By: #### L 501.5200, L501.9520, L100.0100, L700.8000, L500.4050 ####[facility] [address] [place], [address] Albumin/Globulin [Mass ratio] 1.0 {ratio} Normal 0.9-2.4 [facility] Comment on above: Performed By: #### L 501.5200, L501.9520, L100.0100, L700.8000, L500.4050 ####[facility] [address] [place], [address] ALK P 113 U/L Normal 45-117 [facility] Comment on above: Performed By: #### L 501.5200, L501.9520, L100.0100, L700.8000, L500.4050 ####[facility] [address] [place], [address] ALT [Catalytic activity/Vol] 37 U/L Normal 13-56 [facility] Comment on above: Performed By: #### L 501.5200, L501.9520, L100.0100, L700.8000, L500.4050 ####[facility] [address] [place], [address] AST [Catalytic activity/Vol] 31 U/L Normal 15-37 [facility] Comment on above: Performed By: #### L 501.5200, L501.9520, L100.0100, L700.8000, L500.4050 ####[facility] [address] [place], [address] Bilirubin [Mass/Vol] 0.50 mg/dL Normal 0.20-1.00 [facility] Comment on above: Result Comment: For patients on eltrombopag therapy, use of Dimension [place] TBIL is not recommended. Performed By: #### L 501.5200, L501.9520, L100.0100, L700.8000, L500.4050 ####[facility] [address] [place], [address] BUN/CRE 11.5 RATIO Normal 10-20 [facility] Comment on above: Performed By: #### L 501.5200, L501.9520, L100.0100, L700.8000, L500.4050 ####[facility] [address] [place], [address] CA,Total 9.1 mg/dL Normal 8.5-10.1 [facility] Comment on above: Performed By: #### L 501.5200, L501.9520, L100.0100, L700.8000, L500.4050 ####[facility] [address] [place], [address] Chloride [Moles/Vol] 91 mmol/L Low 98-107 [facility] Comment on above: Performed By: #### L 501.5200, L501.9520, L100.0100, L700.8000, L500.4050 ####[facility] [address] [place], [address] CO2 [Moles/Vol] 29.0 mmol/L Normal 21.0-32.0 [facility] Comment on above: Performed By: #### L 501.5200, L501.9520, L100.0100, L700.8000, L500.4050 ####[facility] [address] [place], [address] Creatinine [Mass/Vol] 1.31 mg/dL High 0.55-1.02 [facility] Comment on above: Result Comment: The validity of the calculated GFR GFRAA in patients over70 years has not been determined. Clinical correlation isessential. Performed By: #### L 501.5200, L501.9520, L100.0100, L700.8000, L500.4050 ####[facility] [address] [place], [address] ECRCL 35.03 ml/min Normal [facility] Comment on above: Performed By: #### L 501.5200, L501.9520, L100.0100, L700.8000, L500.4050 ####[facility] [address] [place], [address] EST GFR - AA 59 mL/min Low >60 [facility] Comment on above: Result Comment: Afri can Trin[place] GFR Calc Performed By: #### L 501.5200, L501.9520, L100.0100, L700.8000, L500.4050 ####[facility] [address] [place], [address] GAP 11 Normal 5-15 [facility] Comment on above: Performed By: #### L 501.5200, L501.9520, L100.0100, L700.8000, L500.4050 ####[facility] [address] [place], [address] GFR/1.73 sq M.predicted among non-blacks MDRD (S/P/Bld) [Vol rate/Area] 49 mL/min/{1.73_m2} Low >60 [facility] Comment on above: Result Comment: Non- GFR Calc Performed By: #### L 501.5200, L501.9520, L100.0100, L700.8000, L500.4050 ####[facility] [address] [place], [address] Globulin (S) [Mass/Vol] 4.0 g/dL Normal 2.2-4.2 [facility] Comment on above: Performed By: #### L 501.5200, L501.9520, L100.0100, L700.8000, L500.4050 ####[facility] [address] [place], [address] Glucose [Mass/Vol] 111 mg/dL High 74-106 [facility] Comment on above: Result Comment: Fast ing Glucose result from 100 to 125 mg/dLsuggests IMPAIRED HOMEOSTASIS per A.D.A. criteria. Performed By: #### L 501.5200, L501.9520, L100.0100, L700.8000, L500.4050 ####[facility] [address] [place], [address] Potassium [Moles/Vol] 3.8 mmol/L Normal 3.5-5.1 [facility] Comment on above: Performed By: #### L 501.5200, L501.9520, L100.0100, L700.8000, L500.4050 ####[facility] [address] [place], [address] Sodium [Moles/Vol] 131 mmol/L Low 136-145 [facility] Comment on above: Performed By: #### L 501.5200, L501.9520, L100.0100, L700.8000, L500.4050 ####[facility] [address] [place], [address] T PROT 7.8 g/dL Normal 6.4-8.2 [facility] Comment on above: Performed By: #### L 501.5200, L501.9520, L100.0100, L700.8000, L500.4050 ####[facility] [address] [place], [address] Urea nitrogen [Mass/Vol] 15 mg/dL Normal 7-18 [facility] Comment on above: Performed By: #### L 501.5200, L501.9520, L100.0100, L700.8000, L500.4050 ####[facility] [address] [place], [address] Emergency Department Summary on 01-11-2024 Emergency Department Summary Normal [facility] Magnesiumon 01-11-2024 Magnesium [Mass/Vol] 1.8 mg/dL Normal 1.6-2.6 [facility] Comment on above: Performed By: #### L 501.5200, L501.9520, L100.0100, L700.8000, L500.4050 ####[facility] [address] [place], [address] Thyroid Stim Hormone (TSH)on 01-11-2024 TSH 4.760 uIU/mL High 0.358-3.74 0 [facility] Comment on above: Performed By: #### L 501.5200, L501.9520, L100.0100, L700.8000, L500.4050 ####[facility] [address] [place], [address] Urinalysis, Completeon 01-10 BACTERIA 1+ /hpf Normal None Seen [facility] Comment on above: Order Comment: NOEL CTOR TO SPECIFY Performed By: #### L 400.0001 ####[facility] [address] [place], [address] EPI,SQUAMOUS 0-5 SEEN Normal 5-10 [facility] Comment on above: Order Comment: NOEL CTOR TO SPECIFY Performed By: #### L 400.0001 ####[facility] [address] [place], [address] RBC 0-5 SEEN Normal 0-5 [facility] Comment on above: Order Comment: NOEL CTOR TO SPECIFY Performed By: #### L 400.0001 ####[facility] [address] [place], [address] WBC 0-5 SEEN Normal 0-5 [facility] Comment on above: Order Comment: NOEL CTOR TO SPECIFY Performed By: #### L 400.0001 ####[facility] [address] [place], [address] Mucus Ql (Urine sed) 0 SEEN Normal [facility] Comment on above: Order Comment: NOEL CTOR TO SPECIFY Performed By: #### L 400.0001 ####[facility] [address] [place], [address] hCG Titer Quant., Serumon HCG QUANT. < 1 Normal 1-3 [facility] Comment on above: Result Comment: hCG levels with Gestational AgeGestational Age hCG mIU/mL (IU/L)0.2 - 1 week 5 - 501-2 weeks 50 - 5002-3 weeks 100 - 07164-1 weeks 500 - 343805-3 weeks 1000 - 919261-9 weeks 12367 - 100,0006-8 weeks 09120 - 200,0002-3 months 83344 - 100,000 Performed By: #### L 501.5200, L501.9520, L100.0100, L700.8000, L500.4050 ####[facility] [address] [place], [place], [address] T3 Reverseon 11-13-2023 T3 REVERSE 28.8 ng/dL High 9.2-24.1 [facility] Comment on above: Order Comment: Test( s) 420918-Icwmpud T3, Serumwas developed and its performance characteristicsdetermined by [email or web address]. It has not been cleared or approvedby the Food and Drug Administration.N Result Comment: Perf ormed at: - [facility] [id number] Director: Bettina Jimenez MD, Phone: [phone] Performed By: #### L 100.0100, L503.0105, L500.4050, L500.4100, L501.5200, L501.9520, L503.6075, L503.6150, L503.6550, L506.0400, L3300.7100 ####[facility] [address] [place], [place], [address] US Pelvison 11-13-2023 Indication ovarian cysts Impression Normal appearing anteflexed uterus that measures 62 mm x 26 mm x 33 mm. Endometrium has a normal trilaminar appearance and measures 6.4 mm. Normal endometrial contour. Right ovary contains a 20 x 13 x 16 mm unilocular simple paraovarian/paratubal cyst. Left adnexa contains a 49 x 30 x 54 mm multilocular cyst with irregular inner wall (focal thickening or solid projection(s) < 3 mm with vascularity within septations There is no free fluid visualized in the peritoneal cavity. Recent CT and ultrasound showed a 5 cm complex cyst in left adnexa. Comparison to ultrasound on 11/19/2017: Left ovary contained a 42 x 49 x 37 mm multiloculated cyst. Recommendations Stable multiloculated left adnexal cyst. Size and appearance has been stable since at least 2018. Differences in description are due to enhanced visualization of detail within the cyst with current equipment. Likely etiology is hydrosalpinx or peritoneal inclusion cyst. Follow up ultrasound is recommended in 12 months to assess stability of cyst. Menstrual History LMP on 10/25/2023 Method Transabdominal, transvaginal, 3D ultrasound examination, Color Doppler examination. View: Adequate visualization Uterus Uterus: Visualized Uterus position: anteflexed Description of uterine malformations: none Myometrium: normal Endometrium: three-layer pattern Cervix details: normal Uterus length 62 mm Uterus width 33 mm Uterus height 26 mm Uterus Vol 27.9 cm Endometrial thickness, total 6.4 mm Fibroids: No fibroids identified Polyps: No polyps identified Right Ovary Rt ovary: Visualized Rt ovary morphology: premenopausal normal follicular Rt ovary D1 27 mm Rt ovary D2 14 mm Rt ovary D3 16 mm Rt ovary Vol 3.0 cm Rt ovarian cyst(s): Cysts identified Rt ovarian cyst D1 20 mm Rt ovarian cyst D2 13 mm Rt ovarian cyst D3 16 mm Rt ovarian cyst mean 16.3 mm Rt ovarian cyst vol 2.178 cm Rt ovarian cyst findings: Simple paraovarian/paratubal cyst Left Ovary Lt ovary: Visualized Lt ovary D1 44 mm Lt ovary D2 39 mm Lt ovary D3 47 mm Lt ovary Vol 41.9 cm Lt ovarian cyst D1 49 mm Lt ovarian cyst D2 30 mm Lt ovarian cyst D3 54 mm Lt ovarian cyst mean 44.3 mm Lt ovarian cyst vol 41.563 cm Lt ovarian cyst findings: Multilocular cyst with irregular inner wall (focal thickening or solid projection(s) < 3 mm with vascularity within septations Cul de Sac Visualized. no free fluid visualized Performed By: Emma Floyd RDMS Read By: Aleta Veloz M.D. MATERNAL MEDICINE [facility] US Pelvison 11-09-2023 Radiology Study observation (narrative) [facility] CNOVon 11-08-2023 CNOV Office Visit (OBGYWM ) PHILIPPE RG ([id number]) 1985 F Date Time Provider Department 8/29/24 3:00 PM PHILIPPE WALLACE MARCELINO During your visit today, we recorded the following information about you: Pulse Respiration Blood pressure Weight 106/minute 12/minute 80/54 38.2 kg Height Last Period 1.448 m 10/25/23 Philippe WallaceHARPAL 11/08/2023 4:17 PM Signed Acid Cleaner offered: Patient declines. Philippe Rg is a 37 year old female who presents for problem visit [facility]: Went to ER as she needed fluids for Crohn's complications. A CT was performed which showed: 1. No acute abdominal pelvic abnormality. 2. Simple appearing fluid collection measuring 2.8 x 2.8 x 4.5 cm with somewhat angular margins in the region of the left adnexa impression. There was a similar smaller collection on the prior exam. Considerations include seroma, lymphocele, ovarian cystic lesion, and hydrosalpinx. Consider pelvic ultrasound for further evaluation. 3. Nonobstructing calculus measuring up to 6 mm right renal lower pole collecting system. 4. 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 Her PCP then ordered a pelvic ultrasound: FINDINGS: The uterus is anteverted and is in a midline position. The uterus measures 6.4 x 3.9 x 2.7 cm. Normal uterine cervix. The endometrium measures 6 mm in thickness, and is heterogeneous (striated). There is no demonstrated endometrial mass. There is no demonstrated myometrial mass. I.U.D. - The patient does not have an I.U.D. The right ovary is visualized. The right ovary measures 3.7 x 2.9 x 2.1 cm. There is a 2.9 cm cyst. 6 There is no visualized right adnexal mass or complex lesion. There is normal arterial and normal venous vascularity. The left ovary is visualized. The left ovary measures 6.1 x 3.7 x 3.7 cm. There is a 5.0 cm complex cystic mass. Recommend follow-up in 1 or 2 menstrual periods There is no visualized left adnexal mass or complex lesion. There is normal arterial and normal venous vascularity. There is no fluid in the cul-de-sac. US/Pelvic w/ Transvaginal IMPRESSION: Bilateral ovarian/adnexal cystic masses. Largest is on the left measuring 5 cm and is complex. Recommend follow-up in one or 2 menstrual periods. She is now having pain to the left lower side. OB History T0 L0 SAB2 IAB0 Ectopic0 Multiple0 Live Births0 Comment: Surrogate-1 child Manager Outpatient History LMP: 05/28/2023, Having periods Age at Menarche: Age at First : Age at Menopause: Manager Outpatient History Comments: Sexual Activity: Yes; Male Contraception: None PAST MEDICAL HISTORY No date: Anemia 04/04/2012: Attention to ileostomy ([facility]) 03/2016: Cholelithiasis 09/07/2010, 08/04/2010: CRBSI (catheter-related bloodstream infection) Comment: (yeast/GPC, lactobacillus casei) Dx age 12: Crohn's disease [facility] [facility] Comment: Dr. 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 None currently -- medicine induced. No date: Underweight 10/19/10: Unspecified nutritional deficiency Comment: Stop HPN No date: Vitamin D insufficiency PAST SURGICAL HISTORY 04/28/2016: CHOLECYSTECTOMY Comment: 10/30/2003: COLECTOMY TOTAL WO ANAST Comment: resection of terminal ileum (had 10 cm of TI disease) and colon from cecum to proximal descending colon w/ end-to-side anastomosis 06/26/2014: ILEOSTOMY 07/13/2013: MIDLINE INSERTION/CONSULT Comment: 06/29/2014: MIDLINE INSERTION/CONSULT Comment: 10/24/2003: PAST SURGICAL HISTORY OF Comment: Open drainage of abdominal abscess 12/2006: PAST SURGICAL HISTORY OF Comment: dilation of anal stricture and anal fistulectomy. Colonoscopy showed anal sticture, inflamm in rectum, and tight stricture at 40 cm that could not be traversed 01/2007: PAST SURGICAL HISTORY OF Comment: resection of 6 cm of TI (short stricture in this area) and ICA including strictured area of colon; Irasema pouch, end ileostomy 03/2007: PAST SURGICAL HISTORY OF Comment: dilation of anorectal stricture 04/28/2010: PAST SURGICAL HISTORY OF Comment: EUA, ileoscopy, flex sig and anastamotic dilatation 06/02/2010: PAST SURGICAL HISTORY OF Comment: takedown fistula, SBR, partial colectomy with ileosigmoid anastamosis, diverting jejunostomy 05/2010: PAST SURGICAL HISTORY OF Comment: Cystoscopy, bilateral ureteral stent insertion 05/14/2012: PICC LINE INSERT/CONSULT Comment: 05/28/2020: THYROIDECTOMY TOTAL/COMPLETE; N/A Comment: Partial FAMILY HISTORY Problem Relation Age of Onset Cancer Maternal Grandfather mul (more content not included)... Normal [facility] Thyroidon 11-08-2023 Thyroid Normal [facility] CBC W/Diff, Automatedon 10-11 Absolute Lymph 2.64 X10 3/uL Normal 0.83-4.51 [facility] Comment on above: Performed By: #### L 100.0100, L503.0105, L500.4050, L500.4100, L501.5200, L501.9520, L503.6075, L503.6150, L503.6550, L506.0400, L3300.7100 ####[facility] [address] [facility] [place], [address] Absolute Neut 9.7 X10 3/uL High 2.0-7.7 [facility] Comment on above: Performed By: #### L 100.0100, L503.0105, L500.4050, L500.4100, L501.5200, L501.9520, L503.6075, L503.6150, L503.6550, L506.0400, L3300.7100 ####[facility] [address] [facility] [place], [address] Basophils/100 WBC (Bld) 1.2 % High 0-1 [facility] Comment on above: Performed By: #### L 100.0100, L503.0105, L500.4050, L500.4100, L501.5200, L501.9520, L503.6075, L503.6150, L503.6550, L506.0400, L3300.7100 ####[facility] [address] [place], [address] Eosinophils/100 WBC (Bld) 1.7 % Normal 0-5 [facility] Comment on above: Performed By: #### L 100.0100, L503.0105, L500.4050, L500.4100, L501.5200, L501.9520, L503.6075, L503.6150, L503.6550, L506.0400, L3300.7100 ####[facility] [address] [place], [place], [phone] Erythrocyte distribution width (RBC) [Ratio] 13.4 % Normal 11.6-14.6 [facility] Comment on above: Performed By: #### L 100.0100, L503.0105, L500.4050, L500.4100, L501.5200, L501.9520, L503.6075, L503.6150, L503.6550, L506.0400, L3300.7100 ####[facility] [address] [place], [address] Hematocrit (Bld) [Volume fraction] 47.3 % High 37-47 [facility] Comment on above: Performed By: #### L 100.0100, L503.0105, L500.4050, L500.4100, L501.5200, L501.9520, L503.6075, L503.6150, L503.6550, L506.0400, L3300.7100 ####[facility] [address] [place], [place], [phone](744) Hemoglobin (Bld) [Mass/Vol] 15.6 g/dL High 12.0-15.0 [facility] Comment on above: Performed By: #### L 100.0100, L503.0105, L500.4050, L500.4100, L501.5200, L501.9520, L503.6075, L503.6150, L503.6550, L506.0400, L3300.7100 ####[facility] [address] [place], [place], [phone] IG% 3.200 High 0.0-0.9 [facility] Comment on above: Result Comment: IG% - Immature Granulocytes (promyelocytes, myelocytes andmetamyelocytes) > 1% indicates that a LEFT SHIFT is Present. Performed By: #### L 100.0100, L503.0105, L500.4050, L500.4100, L501.5200, L501.9520, L503.6075, L503.6150, L503.6550, L506.0400, L3300.7100 ####[facility] [address] [place], [place], [phone] Lymphocytes/100 WBC (Bld) 18.1 % Low 19-41 [facility] Comment on above: Performed By: #### L 100.0100, L503.0105, L500.4050, L500.4100, L501.5200, L501.9520, L503.6075, L503.6150, L503.6550, L506.0400, L3300.7100 ####[facility] [address] [place], [place], [phone] MCH (RBC) [Entitic mass] 28.2 pg Normal 27.0-32.0 [facility] Comment on above: Performed By: #### L 100.0100, L503.0105, L500.4050, L500.4100, L501.5200, L501.9520, L503.6075, L503.6150, L503.6550, L506.0400, L3300.7100 ####[facility] [address] [facility] [place], [address] MCHC (RBC) [Mass/Vol] 33.0 g/dL Normal 32-36 [facility] Comment on above: Performed By: #### L 100.0100, L503.0105, L500.4050, L500.4100, L501.5200, L501.9520, L503.6075, L503.6150, L503.6550, L506.0400, L3300.7100 ####[facility] [address] [place], [address] MCV (RBC) [Entitic vol] 85.5 fL Normal 81-99 [facility] Comment on above: Performed By: #### L 100.0100, L503.0105, L500.4050, L500.4100, L501.5200, L501.9520, L503.6075, L503.6150, L503.6550, L506.0400, L3300.7100 ####[facility] [address] [place], [address] Monocytes/100 WBC (Bld) 9.6 % Normal 0-10 [facility] Comment on above: Performed By: #### L 100.0100, L503.0105, L500.4050, L500.4100, L501.5200, L501.9520, L503.6075, L503.6150, L503.6550, L506.0400, L3300.7100 ####[facility] [address] [place], [address] Neutrophils/100 WBC (Bld) 66.2 % Normal 47-70 [facility] Comment on above: Performed By: #### L 100.0100, L503.0105, L500.4050, L500.4100, L501.5200, L501.9520, L503.6075, L503.6150, L503.6550, L506.0400, L3300.7100 ####[facility] [address] [place], [address] Nucleated RBC (Bld) [#/Vol] 0 10*3/uL Normal 0-5 [facility] Comment on above: Performed By: #### L 100.0100, L503.0105, L500.4050, L500.4100, L501.5200, L501.9520, L503.6075, L503.6150, L503.6550, L506.0400, L3300.7100 ####[facility] [address] [place], [address] Platelet mean volume (Bld) [Entitic vol] 9.4 fL Normal 6.2-12.0 [facility] Comment on above: Performed By: #### L 100.0100, L503.0105, L500.4050, L500.4100, L501.5200, L501.9520, L503.6075, L503.6150, L503.6550, L506.0400, L3300.7100 ####[facility] [address] [place], [place], [phone](175) Platelets (Bld) [#/Vol] 439 10*3/uL Normal 150-450 [facility] Comment on above: Performed By: #### L 100.0100, L503.0105, L500.4050, L500.4100, L501.5200, L501.9520, L503.6075, L503.6150, L503.6550, L506.0400, L3300.7100 ####[facility] [address] [place], [place], [phone](237) RBC (Bld) [#/Vol] 5.53 10*6/uL High 4.2-5.4 [facility] Comment on above: Performed By: #### L 100.0100, L503.0105, L500.4050, L500.4100, L501.5200, L501.9520, L503.6075, L503.6150, L503.6550, L506.0400, L3300.7100 ####[facility] [address] [place], [place], [phone] RDW SD 41.3 fl Normal 35.1-43.9 [facility] Comment on above: Performed By: #### L 100.0100, L503.0105, L500.4050, L500.4100, L501.5200, L501.9520, L503.6075, L503.6150, L503.6550, L506.0400, L3300.7100 ####[facility] [address] [place], [place], [phone] WBC (Bld) [#/Vol] 14.6 10*3/uL High 4.4-11.0 [facility] Comment on above: Performed By: #### L 100.0100, L503.0105, L500.4050, L500.4100, L501.5200, L501.9520, L503.6075, L503.6150, L503.6550, L506.0400, L3300.7100 ####[facility] [address] [place], [place], [phone] Comprehensive Metabolic Prof ilon 11-06-2023 Albumin [Mass/Vol] 3.5 g/dL Normal 3.2-5.0 [facility] Comment on above: Performed By: #### L 100.0100, L503.0105, L500.4050, L500.4100, L501.5200, L501.9520, L503.6075, L503.6150, L503.6550, L506.0400, L3300.7100 ####[facility] [address] [place], [place], [phone] Albumin/Globulin [Mass ratio] 0.7 {ratio} Low 0.9-2.4 [facility] Comment on above: Performed By: #### L 100.0100, L503.0105, L500.4050, L500.4100, L501.5200, L501.9520, L503.6075, L503.6150, L503.6550, L506.0400, L3300.7100 ####[facility] [address] [place], [address] ALK P 114 U/L Normal 45-117 [facility] Comment on above: Performed By: #### L 100.0100, L503.0105, L500.4050, L500.4100, L501.5200, L501.9520, L503.6075, L503.6150, L503.6550, L506.0400, L3300.7100 ####[facility] [address] [place], [place], [phone] ALT [Catalytic activity/Vol] 40 U/L Normal 13-56 [facility] Comment on above: Performed By: #### L 100.0100, L503.0105, L500.4050, L500.4100, L501.5200, L501.9520, L503.6075, L503.6150, L503.6550, L506.0400, L3300.7100 ####[facility] [address] [place], [place], [phone] AST [Catalytic activity/Vol] 32 U/L Normal 15-37 [facility] Comment on above: Performed By: #### L 100.0100, L503.0105, L500.4050, L500.4100, L501.5200, L501.9520, L503.6075, L503.6150, L503.6550, L506.0400, L3300.7100 ####[facility] [address] [place], [address] Bilirubin [Mass/Vol] 0.50 mg/dL Normal 0.20-1.00 [facility] Comment on above: Result Comment: For patients on eltrombopag therapy, use of Dimension [place] TBIL is not recommended. Performed By: #### L 100.0100, L503.0105, L500.4050, L500.4100, L501.5200, L501.9520, L503.6075, L503.6150, L503.6550, L506.0400, L3300.7100 ####[facility] [address] [place], [place], [phone]) BUN/CRE 14.3 RATIO Normal 10-20 [facility] Comment on above: Performed By: #### L 100.0100, L503.0105, L500.4050, L500.4100, L501.5200, L501.9520, L503.6075, L503.6150, L503.6550, L506.0400, L3300.7100 ####[facility] [address] [place], [place], [phone] CA,Total 9.4 mg/dL Normal 8.5-10.1 [facility] Comment on above: Performed By: #### L 100.0100, L503.0105, L500.4050, L500.4100, L501.5200, L501.9520, L503.6075, L503.6150, L503.6550, L506.0400, L3300.7100 ####[facility] [address] [place], [address] Chloride [Moles/Vol] 96 mmol/L Low 98-107 [facility] Comment on above: Performed By: #### L 100.0100, L503.0105, L500.4050, L500.4100, L501.5200, L501.9520, L503.6075, L503.6150, L503.6550, L506.0400, L3300.7100 ####[facility] [address] [place], [place], [phone] CO2 [Moles/Vol] 25.0 mmol/L Normal 21.0-32.0 [facility] Comment on above: Performed By: #### L 100.0100, L503.0105, L500.4050, L500.4100, L501.5200, L501.9520, L503.6075, L503.6150, L503.6550, L506.0400, L3300.7100 ####[facility] [address] [place], [address] Creatinine [Mass/Vol] 1.68 mg/dL High 0.55-1.02 [facility] Comment on above: Result Comment: The validity of the calculated GFR GFRAA in patients over70 years has not been determined. Clinical correlation isessential. Performed By: #### L 100.0100, L503.0105, L500.4050, L500.4100, L501.5200, L501.9520, L503.6075, L503.6150, L503.6550, L506.0400, L3300.7100 ####[facility] [address] [place], [address] EST GFR - AA 44 mL/min Low >60 [facility] Comment on above: Result Comment: Afri can Trinid[place] GFR Calc Performed By: #### L 100.0100, L503.0105, L500.4050, L500.4100, L501.5200, L501.9520, L503.6075, L503.6150, L503.6550, L506.0400, L3300.7100 ####[facility] [address] [place], [address] GAP 11 Normal 5-15 [facility] Comment on above: Performed By: #### L 100.0100, L503.0105, L500.4050, L500.4100, L501.5200, L501.9520, L503.6075, L503.6150, L503.6550, L506.0400, L3300.7100 ####[facility] [address] [place], [address] GFR/1.73 sq M.predicted among non-blacks MDRD (S/P/Bld) [Vol rate/Area] 37 mL/min/{1.73_m2} Low >60 [facility] Comment on above: Result Comment: Non- GFR Calc Performed By: #### L 100.0100, L503.0105, L500.4050, L500.4100, L501.5200, L501.9520, L503.6075, L503.6150, L503.6550, L506.0400, L3300.7100 ####[facility] [address] [place], [address] Globulin (S) [Mass/Vol] 4.9 g/dL High 2.2-4.2 [facility] Comment on above: Performed By: #### L 100.0100, L503.0105, L500.4050, L500.4100, L501.5200, L501.9520, L503.6075, L503.6150, L503.6550, L506.0400, L3300.7100 ####[facility] [address] [place], [address] Glucose [Mass/Vol] 98 mg/dL Normal 74-106 [facility] Comment on above: Performed By: #### L 100.0100, L503.0105, L500.4050, L500.4100, L501.5200, L501.9520, L503.6075, L503.6150, L503.6550, L506.0400, L3300.7100 ####[facility] [address] [place], [address] Potassium [Moles/Vol] 4.0 mmol/L Normal 3.5-5.1 [facility] Comment on above: Performed By: #### L 100.0100, L503.0105, L500.4050, L500.4100, L501.5200, L501.9520, L503.6075, L503.6150, L503.6550, L506.0400, L3300.7100 ####[facility] [address] [place], [address] Sodium [Moles/Vol] 132 mmol/L Low 136-145 [facility] Comment on above: Performed By: #### L 100.0100, L503.0105, L500.4050, L500.4100, L501.5200, L501.9520, L503.6075, L503.6150, L503.6550, L506.0400, L3300.7100 ####[facility] [address] [place], [place], [phone] T PROT 8.4 g/dL High 6.4-8.2 [facility] Comment on above: Performed By: #### L 100.0100, L503.0105, L500.4050, L500.4100, L501.5200, L501.9520, L503.6075, L503.6150, L503.6550, L506.0400, L3300.7100 ####[facility] [address] [place], [place], [phone] Urea nitrogen [Mass/Vol] 24 mg/dL High 7-18 [facility] Comment on above: Performed By: #### L 100.0100, L503.0105, L500.4050, L500.4100, L501.5200, L501.9520, L503.6075, L503.6150, L503.6550, L506.0400, L3300.7100 ####[facility] [address] [place], [place], [phone] Ferritinon 11-06-2023 Ferritin [Mass/Vol] 137 ng/mL Normal 8-252 [facility] Comment on above: Performed By: #### L 100.0100, L503.0105, L500.4050, L500.4100, L501.5200, L501.9520, L503.6075, L503.6150, L503.6550, L506.0400, L3300.7100 ####[facility] [address] [place], [place], [address] Internal Medicine Office Vis iton 11-06-2023 Internal Medicine Office Visit Normal [facility] Ironon 11-06-2023 Iron [Mass/Vol] 68 ug/dL Normal 50-170 [facility] Comment on above: Performed By: #### L 100.0100, L503.0105, L500.4050, L500.4100, L501.5200, L501.9520, L503.6075, L503.6150, L503.6550, L506.0400, L3300.7100 ####[facility] [address] [place], [place], [address] Iron Binding Capacity,Totalo n 11-06-2023 TIBC 414 ug/dL Normal 250-450 [facility] Comment on above: Performed By: #### L 100.0100, L503.0105, L500.4050, L500.4100, L501.5200, L501.9520, L503.6075, L503.6150, L503.6550, L506.0400, L3300.7100 ####[facility] [address] [place], [place], [address] Lipid Profileon 11-06-2023 Cholesterol [Mass/Vol] 227 mg/dL High 200 [facility] Comment on above: Result Comment: <200 mg/dL Desirable 200-240 mg/dL Borderline >240 mg/dL High Risk Performed By: #### L 100.0100, L503.0105, L500.4050, L500.4100, L501.5200, L501.9520, L503.6075, L503.6150, L503.6550, L506.0400, L3300.7100 ####[facility] [address] [place], [address] Cholesterol in HDL [Mass/Vol] 82 mg/dL Normal [facility] Comment on above: Result Comment: The drugs N-Acetylcysteine and Metamizole may falselydepress this assay. Reference Range HDL <40 mg/dL Low HDL Cholesterol HDL >or= 60 mg/dL High HDL Cholesterol Performed By: #### L 100.0100, L503.0105, L500.4050, L500.4100, L501.5200, L501.9520, L503.6075, L503.6150, L503.6550, L506.0400, L3300.7100 ####[facility] [address] [place], [address] Cholesterol in LDL [Mass/Vol] 99 mg/dL Normal 0-130 [facility] Comment on above: Performed By: #### L 100.0100, L503.0105, L500.4050, L500.4100, L501.5200, L501.9520, L503.6075, L503.6150, L503.6550, L506.0400, L3300.7100 ####[facility] [address] [place], [address] Cholesterol in VLDL [Mass/Vol] 46 mg/dL High 5-40 [facility] Comment on above: Performed By: #### L 100.0100, L503.0105, L500.4050, L500.4100, L501.5200, L501.9520, L503.6075, L503.6150, L503.6550, L506.0400, L3300.7100 ####[facility] [address] [place], [address] Triglyceride [Mass/Vol] 232 mg/dL High [facility] Comment on above: Result Comment: The drugs N-Acetylcysteine and Metamizole may falselydepress this assay.Serum Triglycerides Reference Interval Normal <150 mg/dL Borderline high 150 - 199 mg/dL High 200 - 499 mg/dL Very High > or = 500 mg/dL Performed By: #### L 100.0100, L503.0105, L500.4050, L500.4100, L501.5200, L501.9520, L503.6075, L503.6150, L503.6550, L506.0400, L3300.7100 ####[facility] [address] [place], [place], [phone] Magnesiumon 11-06-2023 Magnesium [Mass/Vol] 2.3 mg/dL Normal 1.6-2.6 [facility] Comment on above: Performed By: #### L 100.0100, L503.0105, L500.4050, L500.4100, L501.5200, L501.9520, L503.6075, L503.6150, L503.6550, L506.0400, L3300.7100 ####[facility] [address] [place], [place], [phone] Pelvic w/ Transvaginalon Pelvic w/ Transvaginal Normal [facility] T4 Free Directon 11-06-2023 T4 FREE DIRECT 1.07 ng/dL Normal 0.76-1.46 [facility] Comment on above: Performed By: #### L 100.0100, L503.0105, L500.4050, L500.4100, L501.5200, L501.9520, L503.6075, L503.6150, L503.6550, L506.0400, L3300.7100 ####[facility] [address] [place], [place], [phone] Thyroid Stim Hormone (TSH)on 11-06-2023 TSH 2.360 uIU/mL Normal 0.358-3.74 0 [facility] Comment on above: Performed By: #### L 100.0100, L503.0105, L500.4050, L500.4100, L501.5200, L501.9520, L503.6075, L503.6150, L503.6550, L506.0400, L3300.7100 ####[facility] [address] [place], [address] Vitamin B12on 11-06-2023 Cobalamin (Vitamin B12) [Mass/Vol] 588 pg/mL Normal 211-911 [facility] Comment on above: Performed By: #### L 100.0100, L503.0105, L500.4050, L500.4100, L501.5200, L501.9520, L503.6075, L503.6150, L503.6550, L506.0400, L3300.7100 ####[facility] [address] [place], [address] Urine Cultureon 10-19-2023 URC Mixed Gram Positive Organisms [place] Count 25,000-50,000 [facility] Mixed contaminants. Submit a new specimen if indicated. Normal [facility] Comment on above: Performed By: #### M 100.2200 ####[facility] [address], [address] Abdomen/Pelvis without Conto n 10-17-2023 Abdomen/Pelvis without Cont Normal [facility] Basic Metabolic Profile (BMP )on 10-17-2023 BUN/CRE 14.6 RATIO Normal 10-20 [facility] Comment on above: Performed By: #### L 500.2500, L500.3400, L501.2450 ####[facility] [address] [place], [address] CA,Total 9.8 mg/dL Normal 8.5-10.1 [facility] Comment on above: Performed By: #### L 500.2500, L500.3400, L501.2450 ####[facility] [address] [place], [address] Chloride [Moles/Vol] 90 mmol/L Low 98-107 [facility] Comment on above: Performed By: #### L 500.2500, L500.3400, L501.2450 ####[facility] [address] [place], [address] CO2 [Moles/Vol] 25.0 mmol/L Normal 21.0-32.0 [facility] Comment on above: Performed By: #### L 500.2500, L500.3400, L501.2450 ####[facility] [address] [place], [address] Creatinine [Mass/Vol] 2.53 mg/dL High 0.55-1.02 [facility] Comment on above: Result Comment: The validity of the calculated GFR GFRAA in patients over70 years has not been determined. Clinical correlation isessential. Performed By: #### L 500.2500, L500.3400, L501.2450 ####[facility] [address] [place], [address] ECRCL 18.78 ml/min Normal [facility] Comment on above: Performed By: #### L 500.2500, L500.3400, L501.2450 ####[facility] [address] [place], [address] EST GFR - AA 28 mL/min Low >60 [facility] Comment on above: Result Comment: Afri can [place] GFR Calc Performed By: #### L 500.2500, L500.3400, L501.2450 ####[facility] [address] [place], [address] GAP 9 Normal 5-15 [facility] Comment on above: Performed By: #### L 500.2500, L500.3400, L501.2450 ####[facility] [address] [place], [address] GFR/1.73 sq M.predicted among non-blacks MDRD (S/P/Bld) [Vol rate/Area] 23 mL/min/{1.73_m2} Low >60 [facility] Comment on above: Result Comment: Non- GFR Calc Performed By: #### L 500.2500, L500.3400, L501.2450 ####[facility] [address] [place], [address] Glucose [Mass/Vol] 119 mg/dL High 74-106 [facility] Comment on above: Result Comment: Fast ing Glucose result from 100 to 125 mg/dLsuggests IMPAIRED HOMEOSTASIS per A.D.A. criteria. Performed By: #### L 500.2500, L500.3400, L501.2450 ####[facility] [address] [place], [address] Potassium [Moles/Vol] 4.2 mmol/L Normal 3.5-5.1 [facility] Comment on above: Performed By: #### L 500.2500, L500.3400, L501.2450 ####[facility] [address] [place], [address] Sodium [Moles/Vol] 124 mmol/L Low 136-145 [facility] Comment on above: Performed By: #### L 500.2500, L500.3400, L501.2450 ####[facility] [address] [place], [address] Urea nitrogen [Mass/Vol] 37 mg/dL High 7-18 [facility] Comment on above: Performed By: #### L 500.2500, L500.3400, L501.2450 ####[facility] [address] [place], [address] CBC W/Diff, Automatedon 08-0 PATH REV Reviewed Normal [facility] Comment on above: Result Comment: Neut rophilic leukocytosis with left shift.PolycythemiaThrombocytosis.Clinical correlation necessary.Herminio Kelly M.D. 10/17/23 AMENDED REPORT 10/17/23 1339 PATH REV previously reported as: July Performed By: #### L 100.0100 ####[facility] [address] [place], [address] CRPon 10-17-2023 C-REACTIVE PROT 12.30 mg/L High 0.0-3.0 [facility] Comment on above: Result Comment: C-Re active Protein (CRP) provides useful information for thediagnosis, therapy and monitoring of inflammatory processesand associated diseases. For the evaluation of Relative Riskfor Cardiovascular Disease, a High Sensitivity CRP (HSCRP)should be ordered. Performed By: #### L 101.9900, L501.6710 ####[facility] [address] [place], [address] Emergency Department Summary on 10-17-2023 Emergency Department Summary Normal [facility] Erythrocyte Sed Rateon 10-16 SED RATE 18 mm/hr Normal 0-30 [facility] Comment on above: Performed By: #### L 101.9900, L501.6710 ####[facility] [address] [place], [address] Lactic Acidon 10-17-2023 Lactate [Moles/Vol] 1.0 mmol/L Normal 0.4-1.9 [facility] Comment on above: Order Comment: Y Performed By: #### L 503.6005 ####[facility] [address] [place], [address] Lipaseon 10-17-2023 Lipase [Catalytic activity/Vol] 194 U/L High 13-75 [facility] Comment on above: Result Comment: Beatriz person note:LIPASE revised reference range effective 22.New Lipase methodology. Expected to produce lower valuesthan the previous assay method.NEW Reference Range: 13 - 75 U/L Performed By: #### L 500.2500, L500.3400, L501.2450 ####[facility] [address] [place], [address] Liver Profileon 10-17-2023 Albumin [Mass/Vol] 3.9 g/dL Normal 3.2-5.0 [facility] Comment on above: Performed By: #### L 500.2500, L500.3400, L501.2450 ####[facility] [address] [place], [address] ALK P 130 U/L High 45-117 [facility] Comment on above: Performed By: #### L 500.2500, L500.3400, L501.2450 ####[facility] [address] [place], [address] ALT [Catalytic activity/Vol] 42 U/L Normal 13-56 [facility] Comment on above: Performed By: #### L 500.2500, L500.3400, L501.2450 ####[facility] [address] [place], [address] AST [Catalytic activity/Vol] 34 U/L Normal 15-37 [facility] Comment on above: Performed By: #### L 500.2500, L500.3400, L501.2450 ####[facility] [address] [place], [address] Bilirubin [Mass/Vol] 0.70 mg/dL Normal 0.20-1.00 [facility] Comment on above: Result Comment: For patients on eltrombopag therapy, use of Dimension [place] TBIL is not recommended. Performed By: #### L 500.2500, L500.3400, L501.2450 ####[facility] [address] [place], [address] Bilirubin.direct [Mass/Vol] 0.30 mg/dL Normal 0.00-0.30 [facility] Comment on above: Performed By: #### L 500.2500, L500.3400, L501.2450 ####[facility] [address] [place], [address] Globulin (S) [Mass/Vol] 4.9 g/dL High 2.2-4.2 [facility] Comment on above: Performed By: #### L 500.2500, L500.3400, L501.2450 ####[facility] [address] [place], [address] T PROT 8.8 g/dL High 6.4-8.2 [facility] Comment on above: Performed By: #### L 500.2500, L500.3400, L501.2450 ####[facility] [address] [place], [address] ,Urineon 10-17-2023 Beta HCG ( test) Ql (U) Negative Normal [facility] Comment on above: Order Comment: CLEAN CATCH Result Comment: Very dilute urine specimens, as indicated by a low specificgravity, may not contain outreach representative levels of hCG.If is still suspected, a first morning urinespecimen should be collected 48 hours later and tested. Performed By: #### L 400.7600, L400.0001 ####[facility] [address] [place], [address] Urinalysis, Completeon 10-16 BACTERIA RARE Normal None Seen [facility] Comment on above: Order Comment: CLEAN CATCH Performed By: #### L 400.7600, L400.0001 ####[facility] [address] [place], [address] EPI,SQUAMOUS 5-10 SEEN Normal 5-10 [facility] Comment on above: Order Comment: CLEAN CATCH Performed By: #### L 400.7600, L400.0001 ####[facility] [address] [place], [address] RBC 5-10 SEEN Normal 0-5 [facility] Comment on above: Order Comment: CLEAN CATCH Performed By: #### L 400.7600, L400.0001 ####[facility] [address] [place], [address] WBC 5-10 SEEN Normal 0-5 [facility] Comment on above: Order Comment: CLEAN CATCH Performed By: #### L 400.7600, L400.0001 ####[facility] [address] [place], [address] Mucus Ql (Urine sed) 0 SEEN Normal [facility] Comment on above: Order Comment: CLEAN CATCH Performed By: #### L 400.7600, L400.0001 ####[facility] [address] [place], [address] CBC panel Auto (Bld)on 05-28 Erythrocyte distribution width (RBC) [Ratio] 13.8 % 11.5 - 15.0 % [facility] Hematocrit (Bld) [Volume fraction] 50.8 % High 36.0 - 46.0 % [facility] Hemoglobin (Bld) [Mass/Vol] 16.6 g/dL High 11.5 - 15.5 g/dL [facility] MCH (RBC) [Entitic mass] 28.4 pg 26.0 - 34.0 pg [facility] MCHC (RBC) [Mass/Vol] 32.7 g/dL 30.5 - 36.0 g/dL [facility] MCV (RBC) [Entitic vol] 86.8 fL 80.0 - 100.0 fL [facility] Nucleated RBC (Bld) [#/Vol] <0.01 k/uL [facility] Platelet mean volume (Bld) [Entitic vol] 9.1 fL 9.0 - 12.7 fL [facility] Platelets (Bld) [#/Vol] 432 10*3/uL High 150 - 400 k/uL [facility] RBC (Bld) [#/Vol] 5.85 10*6/uL High 3.90 - 5.20 m/uL [facility] WBC (Bld) [#/Vol] 17.75 10*3/uL High 3.70 - 11.00 k/uL [facility] Comprehensive metabolic 2000 panelon 05-29-2023 Albumin [Mass/Vol] 4.5 g/dL 3.9 - 4.9 g/dL [facility] ALP [Catalytic activity/Vol] 110 U/L 34 - 123 U/L [facility] ALT [Catalytic activity/Vol] 27 U/L 7 - 38 U/L [facility] Anion gap [Moles/Vol] 15 mmol/L 9 - 18 mmol/L [facility] AST [Catalytic activity/Vol] 23 U/L 13 - 35 U/L [facility] Bilirubin [Mass/Vol] 0.3 mg/dL 0.2 - 1 .3 mg/dL [facility] Calcium [Mass/Vol] 9.7 mg/dL 8.5 - 10. 2 mg/dL [facility] Chloride [Moles/Vol] 97 mmol/L 97 - 10 5 mmol/L [facility] CO2 [Moles/Vol] 22 mmol/L 22 - 30 mmol/L [facility] Creatinine [Mass/Vol] 1.05 mg/dL High 0.58 - 0.96 mg/dL [facility] Estimated Glomerular Filtration Rate 71 mL/min/1.73m >=60 mL/min/1.7 3m [facility] Glucose [Mass/Vol] 103 mg/dL High 74 - 99 mg/dL [facility] Potassium [Moles/Vol] 3.3 mmol/L Low 3.7 - 5.1 mmol/L [facility] Protein [Mass/Vol] 8.2 g/dL High 6.3 - 8.0 g/dL [facility] Sodium [Moles/Vol] 134 mmol/L Low 136 - 144 mmol/L [facility] Urea nitrogen [Mass/Vol] 14 mg/dL 7 - 21 mg/dL [facility] MAGNESIUM BLDon 05-29-2023 Magnesium [Mass/Vol] 1.9 mg/dL 1.7 - 2 .3 mg/dL [facility] VITAMIN D 25 HYDROXYon 05-28 25-hydroxyvitamin D3 [Mass/Vol] 33.9 ng/mL 31.0 - 80.0 ng/mL [facility] UA DIP, URINE (POC)on 2021 BILIRUBIN UA (POCT) Negative Negative [facility] CLARITY UA (POCT) Clear [facility] COLOR UA (POCT) Yellow [facility] GLUCOSE UA (POCT) Negative Negative mg/dL [facility] HEMOGLOBIN/BLOOD UA (POCT) Negative Negative [facility] KETONE UA (POCT) Negative Negative mg/dL [facility] LEUKOCYTES UA (POCT) Trace [facility]normal [facility] NITRITE UA (POCT) Negative Negative [facility] PH UA (POCT) 6.5 4.5 - 8.0 [facility] Protein Ql (U) 30 mg/dL Abnormal Negative mg/dL [facility] SPECIFIC GRAVITY UA (POCT) 1.020 1.005 - 1.030 [facility] UROBILINOGEN UA (POCT) 0.2 E.U./dL Bethanie l E.U./dL [facility] Absolute lymphocyte counton 09-07-2021 Lymphocytes Auto (Unsp spec) [#/Vol] 2.08 10*3/uL 0.83-4.51 [facility] Work Phone: [phone] Basophil percentageon 2021 Basophil percentage 0-5 SEEN /hpf 0-5 [facility] Work Phone: [phone] Basophils/100 WBC (Bld) 0.9 % 0-1 [facility] Work Phone: [phone] Bilirubin [Mass/Vol] 0.60 mg/dL 0.20-1.00 [facility] Work Phone: [phone] Comment on above: For patients on eltr ombopag therapy, use of Dimension [place] TBIL is not recommended. Chloride [Moles/Vol] 96 mmol/L 98-107 [facility] Work Phone: [phone] Eosinophils/100 WBC (Bld) 1.7 % 0-5 [facility] Work Phone: [phone] Glucose [Mass/Vol] 108 mg/dL 74-106 [facility] Work Phone: [phone] Comment on above: Fasting Glucose resu lt from 100 to 125 mg/dL suggests IMPAIRED HOMEOSTASIS per A.D.A. criteria. Neutrophils (Bld) [#/Vol] 5.6 10*3/uL 2.0-7.7 [facility] Work Phone: Neutrophils/100 WBC (Bld) 62.4 % 47-70 [facility] Work Phone: Potassium [Moles/Vol] 3.9 mmol/L 3.5-5.1 [facility] Work Phone: [phone] Comment on above: Moderate Hemolysis, Result may be falsely increased. Protein [Mass/Vol] 8.3 g/dL 6.4-8.2 [facility] Work Phone: Sodium [Moles/Vol] 131 mmol/L 136-145 [facility] Work Phone: WBC (Bld) [#/Vol] 9.0 10*3/uL 4.4-11.0 [facility] Work Phone: [phone] Bilirubin Test strip Ql (U)o n 09-07-2021 Bilirubin Ql (U) Negative Negative [facility] Work Phone: [phone] Blood erythrocytes count (nu mber/volume)on 09-07-2021 RBC (Bld) [#/Vol] 5.78 10*6/uL 4.2-5.4 [facility] Work [facility]: [phone] Blood hemoglobin measurement (mass/volume)on 09-07-2021 Hemoglobin (Bld) [Mass/Vol] 16.7 g/dL 12.0-15.0 [facility] Work Phone: Blood lymphocytes/100 leukoc yteson 09-07-2021 Lymphocytes/100 WBC (Bld) 23.2 % 19-41 [facility] Work Phone: Blood monocytes/100 leukocyt eson 09-07-2021 Monocytes/100 WBC (Bld) 10.1 % 0-10 [facility] Work Phone: Blood platelet mean volumeon 09-07-2021 Platelet mean volume (Bld) [Entitic vol] 9.0 fL 6.2-12.0 [facility] Work Phone: [phone] Determination of erythrocyte mean corpuscular volume (MCV)on 09-07-2021 MCV (RBC) [Entitic vol] 83.6 fL 81-99 [facility] Work Phone: Hematocrit Auto (Bld) [Volum e fraction]on 09-07-2021 Hematocrit (Bld) [Volume fraction] 48.3 % 37-47 [facility] Work Phone: Ketones Test strip Ql (U)on 09-07-2021 Ketones Ql (U) Negative Negative [facility] Work Phone: Laboratory - Chemistry and C hemistry - challengeon 09-07-2021 HCG ( test) Ql (U) Negative [facility] Work Phone: Comment on above: Very dilute urine sp ecimens, as indicated by a low specificgravity, may not contain outreach representative levels of hCG. If is still suspected, a first morning urinespecimen should be collected 48 hours later and tested. ALP [Catalytic activity/Vol] 125 U/L 45-117 [facility] Work Phone: ALT [Catalytic activity/Vol] 36 U/L 13-56 [facility] Work Phone: CO2 [Moles/Vol] 24.0 mmol/L 21.0-32.0 [facility] Work Phone: Globulin (S) [Mass/Vol] 4.5 g/dL 2.2-4.2 [facility] Work Phone: Magnesium [Mass/Vol] 2.2 mg/dL 1.6-2.6 [facility] Work Phone: Comment on above: Moderate Hemolysis, Result may be falsely increased. Urea nitrogen/Creatinine [Mass ratio] 15.2 mg/mg 10-20 [facility] Work Phone: Laboratory - Hematology and Cell countson 09-07-2021 Erythrocyte distribution width (RBC) [Entitic vol] 39.3 fL 35.1-43.9 [facility] Work Phone: Erythrocyte distribution width (RBC) [Ratio] 12.9 % 11.6-14.6 [facility] Work Phone: Immature granulocytes/100 WBC (Bld) 1.700 % 0.0-0.9 [facility] Work Phone: Comment on above: IG% - Immature Granu locytes (promyelocytes, myelocytes and metamyelocytes) > 1% indicates that a LEFT SHIFT is Present. MCH (RBC) [Entitic mass] 28.9 pg 27.0-32.0 [facility] Work Phone: Nucleated RBC/100 WBC (Bld) [Ratio] 0 % 0-5 [facility] Work Phone: MCHC Auto (RBC) [Mass/Vol]on 09-07-2021 MCHC (RBC) [Mass/Vol] 34.6 g/dL 32-36 [facility] Work Phone: Mucus LM Ql (Urine sed)on Mucus Ql (Urine sed) 0 SEEN /hpf [facility] Work Phone: Nitrite Test strip Ql (U)on 09-07-2021 Nitrite Ql (U) Negative Negative [facility] Work Phone: No Panel Informationon 09-07 D-Dimer Quantitative (PE/DVT) < 0.27 FEU/ug/m 0.27-0.49 [facility] Work Phone: Comment on above: NORMAL D-Dimer level (<0.50) indicates no DVT or PE. Estimated Creatinine Clearance Calc 35.13 ml/min [facility] Work Phone: Estimated GFR (MDRD) Amer 53 mL/min >60 [facility] Work Phone: Comment on above: GFR Calc Estimated GFR (MDRD) Non-Af Amer 44 mL/min >60 [facility] Work Phone: Comment on above: Non- GFR Calc Troponin I High Sensitivity < 3 pg/mL 3.0-54.0 [facility] Work Phone: Comment on above: Please Note: New Saira t Units and Gender Specific Reference Ranges. For more information see Policy Stat Procedure [place] High Sensitivity Troponin (TNIH) and attachments. Platelets bldon 09-07-2021 Platelets (Bld) [#/Vol] 386 10*3/uL 150-450 [facility] Work Phone: Protein Test strip Ql (U)on 09-07-2021 Protein Ql (U) 30 mg/dl Negative [facility] Work Phone: Serum or plasma albumin joselyn urement (mass/volume)on 09-07-2021 Albumin [Mass/Vol] 3.8 g/dL 3.2-5.0 [facility] Work Phone: Serum or plasma albumin/glob ulin mass ratioon 09-07-2021 Albumin/Globulin [Mass ratio] 0.8 {ratio} 0.9-2.4 [facility] Work Phone: Serum or plasma calcium joselyn urement (mass/volume)on 09-07-2021 Calcium [Mass/Vol] 9.5 mg/dL 8.5-10.1 [facility] Work Phone: Serum or plasma creatinine m easurement (mass/volume)on 09-07-2021 Creatinine [Mass/Vol] 1.45 mg/dL 0.55-1.02 [facility] Work Phone: Comment on above: The validity of the calculated GFR & GFRAA in patients over 70 years has not been determined. Clinical correlation is essential. Serum or plasma urea nitroge n measurement (mass/volume)on 09-07-2021 Urea nitrogen [Mass/Vol] 22 mg/dL 7-18 [facility] Work Phone: Squamous epithelial cells de tection in urine sediment by light microscopyon 09-07-2021 Epithelial cells.squamous LM Ql (Urine sed) 5-10 SEEN /hpf 5-10 [facility] Work Phone: Thin prep Papanicolaou smear with manual screeningon 09-07-2021 Thin prep Papanicolaou smear with manual screening 40 U/L 15-37 [facility] Work Phone: Comment on above: Moderate Hemolysis, Result may be falsely increased. Thin prep Papanicolaou smear with manual screening 11 5-15 [facility] Work Phone: Urine blood detectionon 08-11 RBC Ql (U) 10 /ul Negative [facility] Work Phone: RBC Ql (U) 0 SEEN /hpf 0-5 [facility] Work Phone: Urine clarityon 09-07-2021 Clarity (U) Clear Clear [facility] Work Phone: Urine color determinationon 09-07-2021 Color (U) Yellow Yellow [facility] Work Phone: Urine glucose detectionon Glucose Ql (U) Normal mg/dl Normal [facility] Work Phone: Urine leukocyte esterase det ection by dipstickon 09-07-2021 Leukocyte esterase Test strip Ql (U) 25 /ul Negative [facility] Work Phone: Urine pHon 09-07-2021 pH (U) 6.0 [pH] 5.0 - 8.0 [facility] Work Phone: Urine sediment bacteria coun t by microscopy (number/high power field)on 09-07-2021 Bacteria LM.HPF (Urine sed) [#/Area] 1 /[HPF] None Seen [facility] Work Phone: Urine specific gravity measu rementon 09-07-2021 Specific gravity (U) [Rel density] 1.020 1.002-1.03 0 [facility] Work Phone: Urobilinogen Auto test strip Ql (U)on 09-07-2021 Urobilinogen Ql (U) Normal mg/dl Normal [facility] Work Phone: CASE MANAGEMon 05-29-2020 CASE MANAGEM HNO ID: [id number] Author: Sherman AlyRn) PURA Ryan Service: Care Management Author Type: Registered Nurse Type: Care Mgt Progress Note Filed: 05/29/2020 9:28 AM Note Text: CARE MANAGEMENT DISCHARGE NOTE SERVICE DATE: 05/29/2020 SERVICE TIME: 0927 LOS: 0 days Attempted to contact patient prior to discharge no answer. SIGNATURE: Sherman Ryan RN PATIENT NAME: Philippe Rg DATE: May 29, 2020 TIME: 9:27 AM PAGER/CONTACT #: [phone] [facility] PROGRESSon 05-29-2020 PROGRESS HNO ID: [id number] Author: Aditi Yuen DO Service: Endocrine Surgery Author Type: Resident Type: Progress Notes Filed: 05/29/2020 8:17 AM Note Text: ENDOCRINE SURGERY PROGRESS NOTE Philippe Rg [id number] ID: 34 year old female POD#: 1 Day Post-Op S/P: Left thyroid lobectomy (05/28/2020) S: Pain well controlled. Denies neck swelling. Denies difficulty with swallowing or breathing. Denies hoarseness or stridor. Denies numbness or tingling around mouth/extremities. Tolerating PO. Discussed Afirma results. O: BP 102/73 Pulse 92 Temp 36.5 ?C (97.7 ?F) (Oral) Resp 17 Ht 144.8 cm (4' 9) Wt 44.6 kg (98 lb 4.8 oz) LMP (LMP Unknown) SpO2 98% BMI 21.27 kg/m? 05/28 0700 - 05/29 0659 In: 1200 [PO:600; IV:600] Out: 15 Gen: NAD, strong voice. HEENT: Soft, neck minimally tender without significant swelling or bruising, incision intact with steri-strip and glue. Ext: Warm and well perfused, SCD's in place. 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 Comfortable and stable postoperatively. P: - Cepacol lozenge for sore throat - Prefer non-narcotic analgesia with tylenol PRN, however Oxycodone is okay - Levothyroxine 25 mcg daily, at least 1 hour before first meal - DC home today Rochelle Yuen DO PGY3 Pager: [phone] May 29, 2020 8:[address] [facility] PROGRESS HNO ID: [id number] Author: Interface Note Service: ? Author Type: ? Type: Progress Notes Filed: 05/29/2020 3:03 AM Note Text: Epic Scheduled Downtime: 05/29/2020 1:00:00 AM to 05/29/2020 2:48:[address] 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 PACU/ICU Patient Condition: stable. Anticipated Disposition: inpatient floor planned admission. Neurological Status: aware and responsive. Pulmonary Status: breathing comfortably on room air Airway Control: returned to baseline unsupported. Cardiovascular Status: stable. Pain Management: clinically adequate - multimodal analgesia pain management approach Postoperative Hydration: acceptable. Intraoperative Events: no significant anesthesia events Post Operative Nausea/Vomiting Status: Anesthetic Observations: no significant anesthetic observations Recommendation: continue current plan of care and further care per PACU/ICU/floor team. SIGNATURE: Colby Cobb MD PATIENT NAME: Philippe Rg DATE: May 28, 2020 TIME: 9:40 AM CSN: [id number] [facility] ANES PRE-OPon 05-28-2020 ANES PRE-OP HNO ID: [id number] Author: Colby Cobb Service: Anesthesiology Author Type: Anesthesiologist Type: Anesthesia Preprocedure Evaluation Filed: 05/28/2020 7:10 AM Note Text: ANESTHESIOLOGY DAY OF SURGERY NOTE : 1985 Procedure(s) (LRB): THYROIDECTOMY TOTAL (Bilateral) Surgeon(s): Elida Franklin Estimated body mass index is 19.48 kg/m? as calculated from the following: Height as of 05/25/20: 144.8 cm (4' 9). Weight as of 05/25/20: 40.8 kg (90 lb). Most recent hematocrit and potassium results: Hematocrit 45.8 05/25/2020 Potassium 4.1 05/25/2020 Relevant Problems -RENAL (+) CKD (chronic kidney disease) stage 3, GFR 30-59 ml/min ([facility]) I - PHYSICAL EVALUATION AIRWAY Patient intubated: No. Mallampati: I. TM distance: >3 FB. Neck ROM: full ROM without neurological symptoms. Mouth opening: adequate. Short neck: no. Thick neck: no DENTAL Dental findings: teeth intact. Additional exam findings: no II - ANESTHESIA PLAN ASA Score: 3 Anesthetic Plan: general Airway type: ETT NPO Status: adequate Monitoring plan: Standard ASA. Postoperative analgesic plan: parenteral or oral opioids and multimodal analgesia. Anesthetic Risks, Benefits, Alternatives, Personnel Discussed. Consent obtained from: patient.Patient / Surrogate agrees to blood products: yes DNR status not reviewed with patient and/or family prior to surgery. Significant changes in the patient condition since the History and Physical, not otherwise documented in primary service progress note: no. Potential Anesthesia issues that may suggest increased risk of complications or contraindication to planned procedure: none. Vitals Value Taken Time BP 111/83 05/28/20 0632 Pulse 101 05/28/20 0632 Resp 20 05/28/20 0632 Temp 37.4 ?C (99.3 ?F) 05/28/20 0632 SpO2 100 % 05/28/20 0632 Facility-Administered Medications as of 05/28/2020 Medication Dose Route Frequency - lidocaine 10 mg/mL (1 %) 1-2 mg injection (XYLOCAINE) 0.1-0.2 mL INTRADERMAL PRN - lactated ringers infusion 75 mL/hr INTRAVENOUS CONTINUOUS Outpatient Medications as of 05/28/2020 Medication Sig - potassium chloride (KLOR-CON 10) 10 mEq tablet Take 1 tablet by mouth once daily. - Norethindrone Acet-Ethinyl Est (,) 1-20 mg-mcg per tablet Take one active pill continuously x 3 months - discard inactive pills - sodium bicarbonate 650 mg tablet take 1 tablet twice a day - Multivitamin capsule Take 1 capsule by mouth once daily. - ustekinumab (STELARA) 90 mg/mL injection Inject subcutaneously 90 mg/mL every eight (8) weeks - promethazine (PHENERGAN) 25 mg tablet Take 1 tablet by mouth every 6 hours as needed. I have interviewed and examined the patient. I have reviewed the medical record and/or the pre-anesthesia evaluation, pertinent labs, and test results. This contains updated information obtained within 48 hours of Surgery/Procedure. SIGNATURE: Colby Cobb MD PATIENT NAME: Philippe Rg DATE: May 28, 2020 TIME: 7:09 AM CSN: [id number] Normal [facility] OPERATIVE NOon 05-28-2020 OPERATIVE NO HNO ID: [id number] Author: Elida Franklin Service: Endocrine Surgery Author Type: Physician Type: Operative Report Filed: 05/28/2020 9:12 AM Note Text: [facility] - Operative Report PHILIPPE RG : 1985 AGE: 34. SEX: F PATIENT TYPE: A HOSP [facility]: [facility] LOCATION: [facility] [place] ATTENDING PHYSICIAN: Elida Franklin MD CSN NUMBER: [id number] DATE OF SURGERY/PROCEDURE: 05/28/2020 INCISION/PROCEDURE START TIME: 7:31 a.m. INCISION CLOSE/PROCEDURE END TIME: 8:01 a.m. PREOPERATIVE DIAGNOSIS: Left thyroid nodule suspicious for papillary thyroid carcinoma. POSTOPERATIVE DIAGNOSIS: Left thyroid nodule suspicious for papillary thyroid carcinoma. SURGEON: Elida Franklin MD CANT HOOKER: Em Simmons MD SURGERY/PROCEDURE: Left thyroid lobectomy and isthmusectomy, intraoperative neck ultrasound. ANESTHESIA: General. OPERATIVE INDICATION: The patient is a 34-year-old female with a left thyroid nodule that is suspicious for papillary thyroid carcinoma. She is being taken to the operating room for a left thyroid lobectomy and isthmusectomy. The indications, risks, benefits, and alternatives of the above procedures were reviewed the patient, who gave informed consent to proceed. PREOPERATIVE FINDINGS: Intraoperative neck ultrasound revealed a thyroid gland that was overall normal in size. Within the left thyroid gland, there was a complex nodule measuring approximately 2.5 cm. There were no suspicious features. There were no nodules in the right thyroid gland. No abnormal central or jugular lymphadenopathy was appreciated on ultrasound. The images were archived. A left thyroid lobectomy and isthmusectomy were performed. The left thyroid and isthmus were sent to Pathology as 1 specimen. The left recurrent laryngeal nerve was clearly seen in its normal path in the tracheoesophageal groove. It was of small caliber in size and fully protected along its visible path. The left upper parathyroid gland was identified and preserved. There was no abnormal cervical lymphadenopathy. The patient tolerated the procedure well. DESCRIPTION OF PROCEDURE: The patient was taken to the operating room and placed supine on the operating table. After induction of general endotracheal anesthesia, a beanbag support was used to elevate the thoracic spine. Intraoperative neck ultrasound was performed using an [employer] ultrasound machine with a small parts transducer. The findings were as noted above. The neck was sterilely prepped and draped. A 3 cm incision was made low in the neck. This was deepened through the subcutaneous tissue and platysma with electrocautery. Superior and inferior subplatysmal flaps were raised. The strap muscles were divided longitudinally in the midline of the neck and on the left side of the neck. The strap muscles were from one another and from the anterior surface of the left thyroid gland. Inferior and superior borders of the thyroid isthmus were dissected. Using a harmonic scalpel, individual branches of the inferior thyroid artery and vein were ligated as they entered the gland. The middle thyroid vein branch as well as individual branches of the superior thyroid artery and vein were all ligated, as they entered the gland. This allowed the left lobe to be exteriorized through incision and medially rotated. The left recurrent laryngeal nerve was identified in the tracheoesophageal groove. The vessels in the ligament of Burton were divided. The remaining attachments between the isthmus and trachea were divided with electrocautery. The harmonic scalpel was then used to transect the thyroid parenchyma at the junction of the isthmus and the right thyroid. The wound was then irrigated and checked for hemostasis. The strap muscles were closed with individual layers of 4-0 Vicryl suture. The platysma was similarly approximated. The skin was approximated with a running 3-0 Prolene suture. The skin was sealed with an adhesive and steristrips, and the Prolene was removed. The patient tolerated the procedure well. The patient was taken to the recovery room, extubated, and in good condition. Dr. Franklin served as primary and co-surgeon and scrubbed from skin incision to completion of skin closure. There was no qualified resident available to help with this case, and Dr. Simmons was asked to serve as bus assistant. During the course of the dissection, the bus assistant assisted with thyroid mobilization, vascular isolation, and division. ESTIMATED BLOOD LOSS: Minimal. DRAINS: None. SPECIMENS: Sent to Pathology, left thyroid lobe and isthmus. COUNTS: Sponge and needle counts were correct. COMPLICATIONS: There were no intraoperative complications. Elida Franklin MD JS:[id number] /[id number] cc: [facility] PROGRESSon 05-28-2020 PROGRESS HNO ID: [id number] Author: Em Simmons Service: General Surgery Author Type: Physician Type: Progress Notes Filed: 05/28/2020 1:30 PM Note Text: ENDOCRINE SURGERY PROGRESS NOTE Philippe Mcclendon Yaneli [id number] ID: 34 year old female POD#: 0 S/P: left thyroid lobectomy (05/28/2020) S: Pain well controlled. Denies neck swelling. Denies difficulty with swallowing or breathing. Denies hoarseness or stridor. Tolerating PO. O: BP 119/65 Pulse 85 Temp 36.3 ?C (97.3 ?F) (Oral) Resp 14 Ht 144.8 cm (4' 9) Wt 44.6 kg (98 lb 4.8 oz) LMP (LMP Unknown) SpO2 96% BMI 21.27 kg/m? No intake/output data recorded. Gen: NAD, strong voice. HEENT: Soft, neck minimally tender without significant swelling or bruising, incision intact with steri-strip and glue. Ext: Warm and well perfused, SCD's in place. A/P: Comfortable and stable postoperatively. - Cepacol lozenge for sore throat - Non-narcotic analgesia in-house with tylenol PRN, will also order oxycodone liquid PRN given that patient cannot take NSAIDs - Mobilize with assistance - Advance diet as tolerated, SLIV when tolerating adequate PO - Levothyroxine 25 mcg tomorrow morning - Anticipate DC home tomorrow - No AM labs or calcium supplementation needed Em Simmons MD May 28, 2020 12:[address] 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 - Patchy lymphocytic thyroiditis. - One alda-isthmic lymph node, negative for neoplasm (0/1). - Alda-thyroidal parathyroid gland tissue (0.3 cm). - See comment. [facility] 05/31/2020 COMMENT The papillary thyroid carcinoma (2.5 cm) in the left thyroid lobe is the encapsulated/well-demarcate d follicular variant with focal minimal invasion. Lymphovascular invasion and extrathyroidal extension were not identified. This carcinoma does not involve the margins of excision (closest < 0.1 cm). The pathologic stage is pT2 pN0, based on the examination of one uninvolved alda-isthmic lymph node (0/1). Dr. Robin Fulton was consulted and she agrees with the diagnosis of papillary thyroid carcinoma. SYNOPTIC REPORT OF SUAREZ PATHOLOGIC FINDINGS LEFT THYROID LOBE AND ISTHMUS: Procedure: Left lobectomy with isthmusectomy (hemithyroidectomy) Tumor Focality: Unifocal Tumor Site: Left Lobe Tumor Size: Greatest Dimension: 2.5 cm Histologic Type: Papillary carcinoma, follicular variant, encapsulated/well demarcated, with tumor capsular invasion Margins: Margins uninvolved by carcinoma Angioinvasion (Vascular Invasion): Not identified Lymphatic Invasion: Not identified Extrathyroidal Extension: Not identified Regional lymph nodes: Number of regional lymph nodes involved: 0 Number of regional lymph nodes examined: 1 Level -pretracheal, paratracheal and prelaryngeal/Delphian, perithyroidal (central compartment dissection) Pathologic Stage Classification (pTNM, AJCC 8th ed) TNM Descriptors: Not applicable Primary Tumor (pT): pT2: Tumor > 2 cm but <= 4 cm in greatest dimension, limited to thyroid Regional Lymph Nodes (pN): pN0: No evidence of locoregional lymph node metastasis Distant Metastasis (pM): Not applicable/Not confirmed pathologically in this case -- Zi Villatoro M.D. (Electronic Signature) SPECIMEN SUBMITTED A: LEFT THYROID LOBE AND ISTHMUS CLINICAL DATA NONTOXIC NODULAR GOITER; LEFT THYROID LOBECTOMY GROSS DESCRIPTION Part: A thyroid lobe and isthmus Specimen received: In formalin Specimen type: Hemithyroidectomy Oriented: No Weight: 8.1 grams Size: Overall: 4.5 x 2.8 x 2.0 cm Left lobe: 4.5 x 2.0 x 2.0 cm Isthmus: 2.0 x 1.0 x 0.5 cm Ink: Blue External surface of the left lobe Bennett External surface/resection margin of the isthmus Sectioning: Left lobe are serially sectioned from superior to inferior. Number of discrete nodules: 1 Nodule 1 Location: Left mid to lower pole Size: 2.5 x 2.2 x 2.0 cm Description: Well-circumscribed, pink-redd, centrally cavitary and hemorrhagic Gross extrathyroidal extension: No Background thyroid parenchyma: Red-redd, dull and rubbery Attached skeletal muscle: Not identified Attached lymph nodes: Not identified Attached parathyroid: Not identified Gross photograph: No Cassette Summary: A1: Nodule with isthmus A2: Nodule with isthmus A3: Nodule with isthmus A4. Nodule A5: Nodule NAIN/dcr 05/28/2020 Gross examination performed at [facility], [address] [place] [address] Date of Report: 05/31/2020 Date of Procedure: 05/28/2020 Date of Receipt: 05/28/2020 Submitted by: ELIDA FRANKLIN MD Location: [facility] Diagnostic interpretation performed at [facility], [address] [place] [address]. CLIA Number: [id number] [facility] US Head and neck soft tissue on 03-15-2020 IMPRESSION: Findings consistent with vascular nodule within the mid to lower left thyroid lobe with cystic center, as described. No further abnormality is seen. Casino Floor Walker[facility] Transcribe Date/Time: Mar 15 2020 2:30P Dictated by : GINNY SEYMOUR MD This examination was interpreted and the report reviewed and electronically signed by: GINNY SEYMOUR MD on Mar 15 2020 2:32PM [facility] DIVISION OF RADIOLOGY * * *Final Report* * * DATE OF EXAM: Mar 15 2020 12:33PM [facility] 1052 - US HEAD/NECK SOFT TISSUE OTHER / PROCEDURE REASON: Lump in neck * * * * Physician Interpretation * * * * History: Palpable lump on left side of neck FINDINGS: Directed ultrasound examination over the area of interest within the left lower neck has been performed. Underlying is seen a vascular nodule within the mid to inferior left thyroid lobe with cystic center, the overall size measuring approximately 2.3 x 2.3 x 1.2 cm. The remainder of the left thyroid lobe is homogeneous in echotexture, the overall size measuring 4.3 x 1.3 x 1.9 cm. The right thyroid lobe appears within normal limits and measures 4.4 x 1.0 x 1.2 cm. The isthmus measures 0.2 cm in thickness with no focal abnormality. DIVISION OF RADIOLOGY Provider, [facility] - 03/15/2020 * * *Final Report* * * DATE OF EXAM: Mar 15 2020 12:33PM [facility] 1052 - US HEAD/NECK SOFT TISSUE OTHER / PROCEDURE REASON: Lump in neck * * * * Physician Interpretation * * * * History: Palpable lump on left side of neck FINDINGS: Directed ultrasound examination over the area of interest within the left lower neck has been performed. Underlying is seen a vascular nodule within the mid to inferior left thyroid lobe with cystic center, the overall size measuring approximately 2.3 x 2.3 x 1.2 cm. The remainder of the left thyroid lobe is homogeneous in echotexture, the overall size measuring 4.3 x 1.3 x 1.9 cm. The right thyroid lobe appears within normal limits and measures 4.4 x 1.0 x 1.2 cm. The isthmus measures 0.2 cm in thickness with no focal abnormality. IMPRESSION IMPRESSION: Findings consistent with vascular nodule within the mid to lower left thyroid lobe with cystic center, as described. No further abnormality is seen. Casino Floor Walker[facility] Transcribe Date/Time: Mar 15 2020 2:30P Dictated by : GINNY SEYMOUR MD This examination was interpreted and the report reviewed and electronically signed by: GINNY SEYMOUR MD on Mar 15 2020 2:32PM EST [facility] Radiology Study observation (narrative) [facility] US Head and neck soft tissue Ordered By: [facility] Provider on 03-15-[address] [facility] [address] ENTEROGRAPHY W IVCONon CT ENTEROGRAPHY W IVCON * * *Final Report* * *DATE OF EXAM: Mar 23 2017 8:19AM [facility] [place] ENTEROGRAPHY W IVCON / REASON: K50.019-Crohn's disease of small intestine with unspecified complications * * * * Physician Interpretation * * * * CT ABDOMEN AND PELVIS WITH INTRAVENOUS CONTRAST AND NEUTRAL ORAL CONTRAST(CT ENTEROGRAPHY)HISTORY: Abdominal pain. Long-standing history of Crohn's disease, including colonic, ileal, and jejunal disease, status post multiple resections resulting in proctocolectomy and segmental small bowel resections. Perianal abscess and labial abscess in 2011, with subsequent fistula arising complications and additional surgery in [id number].TECHNIQUE: CT of the abdomen and pelvis using single phase Enterography techniqueCONTRAST:IV: 100 ml of Omnipaque 300Oral: 200 ml of BreezaCT Radiation dose: Integrated Dose-length product (DLP) for this visit = 152 mGy*cm.CT Dose Reduction Employed: mAs-kVp adjusted based on patient size-ageCOMPARISON: CTAP 03/20/2016RESULT:GI Tract: Postoperative changes from total proctocolectomy with end ileostomy in left lower quadrant. The stoma appears slightly hyperemic on 2:63, though this is subjective, perhaps from localized inflammation.Small bowel: No mural hyperenhancement or wall thickening. Some prominence of small bowel segment in left abdomen on 2:70 is probably from peristalsis as this was not evident on prior imaging, suggesting no fixed stricture.Colon: Surgically absent.Strictures: NoneFistulae/Sinus tracts: NoneAbscess: NoneAbdomen:Liver: No mass.Biliary: No bile duct dilation. Gallbladder not well seen, perhaps contracted. Notably, the prior high attenuation/suspected cholelithiasis not evident on current study..Spleen: No mass. No splenomegaly.Pancreas: No mass or duct dilation.Adrenals: No mass.Kidneys: Small cyst lower pole right kidney. Other subcentimeter low-attenuation foci in both kidneys are too small to definitively characterize by CT, probably benign as well. No dominant solid renal mass. No hydronephrosis.Lymph nodes: No abdominal or pelvic lymphadenopathy.Mesentery/P eritoneum: Some fascial thickening along right mesentery/mesenteric root, similar to prior, probably from fibrosis/postoperative change. No ascites.Vasculature: The celiac axis and SMA are patent. The portal vein and branches, splenic vein, SMV, and hepatic veins are patent.Pelvis: Urinary bladder partially distended, unremarkable. Uterus present, anteverted. Previously queried adnexal cysts/follicles have resolved. Postoperative changes from proctocolectomy. No loculated fluid collection.Bones/Soft Tissues: Degenerative changes.Lung Bases: Unremarkable.IMPRESSION:POS TOPERATIVE CHANGES STATUS POST TOTAL PROCTOCOLECTOMY. EQUIVOCAL MILD SUBJECTIVE HYPERENHANCEMENT OF OSTOMY ITSELF, PERHAPS FROM LOCALIZED INFLAMMATION.OTHERWISE NO ACTIVE INFLAMMATORY SMALL BOWEL CROHN'S DISEASE SEEN. NO PENETRATING DISEASE.RESOLUTION OF PRIOR BILATERAL ADNEXAL CYSTS/FOLLICLES.Transcripti onist: RIZWANA Transcribe Date/Time: Mar 23 2017 1:13PDictated by : PETER DICK, MDThis examination was interpreted and the report reviewed and electronically signed by: CLARISSA DICK MD on Mar 23 2017 1:23PM [id number] [facility] NURSING PROGon 03-23-2017 NURSING PROG HNO ID: [id number] thor: Guillermina (Rn) ROMARIO Kinneyervice: RadiologyAuthor Type: Registered NurseType: Nursing Progress NoteFiled: 03/23/2017 8:20 AMNote Text: Radiology Service Progress NotePATIENT NAME: Philippe RgMRN: [id number] OF SERVICE: March 23, 2017TIME: 8:19 AMPATIENT WEIGHT: 90 LBSPATIENT IDENTITY VERIFICATION COMPLETED USING TWO (2) METHODS: Patientconfirmed name verbally and ID band matches..PATIENT GENDER DATA: Female. status: : NoBreastfeeding status: NO.CONTRAST INDUCED NEPHROPATHY RISK FACTORS: Not applicableCREATININE:Creati nineDate Value Ref Range Syrzsv7603/21/2017 1.28 (H) 0.58 - 0.96 mg/dL Final03/16/2017 1.33 (H) 0.58 - 0.96 mg/dL Final03/02/2017 1.31 0.70 - 1.40 mg/dL Final eGFR-All Other RacesDate Value Ref Range Vvlmcf1303/21/2017 49 . FinalComment:eGFR (Estimated GFR) Units of measure: mL/min/1.73 meters squaredeGFR is derived from the reexpressed MDRD Study equation using thefollowingparameters: serum creatinine, age, gender and race. The creatinine assayhasbeen calibrated to be traceable to IDMS.An eGFR <60 mL/min/1.73m2 for >3 months is consistent with chronic kidneydisease. Refer to KDOQI guidelines for clinical interpretation.In patients with unstable renal function, e.g. those with acute kidneyinjury,the eGFR may not accurately reflect actual GFR. eGFR- AmericanDate Value Ref Range Tbivcq2103/21/2017 59 Final P.O.C.T. RESULTS: N/A March 23, 2017TREATMENT: No Hydration needed.ALLERGIES: Reviewed and unchangedCONTRAST ALLERGY: NO.IV SITE: Ambulatory: A peripheral IV was started in the Right hand witha Angio cath: 22 gauge.IV SITE APPEARANCE: Clean,Dry and IntactSIGNED BY: Guillermina Kinney RNMarch 23, 2017 8:19 AM [facility] NURSING PROG HNO ID: [id number] thor: Guillermina (Rn) Nirmal RNService: PICC TeamAuthor Type: Registered NurseType: Nursing Progress NoteFiled: 03/23/2017 8:19 AMNote Text:PICC/VASCULAR ACCESS PROGRESS NOTESERVICE DATE: 03/23/2017SERVICE TIME: 0810Consulted for difficult access. Pt very tearful, moving for staffattempting to place PIV in her for imaging. 22g placed in R hand, positiveblood return flushed with 10cc normal saline without issue.SIGNATURE: Guillermina Kinney RN PATIENT NAME: Philippe RgDATE: March 23, 2017 : 8:18 AM PAGER/CONTACT #: [phone] [facility] Vital Signs Date Time Vital Sign Value Performing Clinician Facility 06-23-2024 13:17-0400 Body height 144.8 cm Caren Shine MD Work Phone: [facility] 06-23-2024 13:17-0400 Body mass index (BMI) [Ratio] 16.66 kg/m2 Caren Shine MD Work Phone: [facility] 06-23-2024 13:17-0400 Body weight 34.93 kg Caren Shine MD Work Phone: [facility] 06-23-2024 13:17-0400 Diastolic blood pressure 56 mm[Hg] Caren Shine MD Work Phone: [facility] 06-23-2024 13:17-0400 Systolic blood pressure 88 mm[Hg] Caren Shine MD Work Phone: [facility] 06-03-2024 09:32-0400 Body height 144.78 cm No Primary Care Physician [facility] 06-03-2024 09:32-0400 Body mass index (BMI) [Ratio] 16.9 kg/m2 No Primary Care Physician [facility] 06-03-2024 09:32-0400 Body weight 35.38 kg No Primary Care Physician [facility] 06-03-2024 09:32-0400 Diastolic blood pressure 63 mm[Hg] No Primary Care Physician [facility] 06-03-2024 09:32-0400 Heart rate 90 /min No Primary Care Physician [facility] 06-03-2024 09:32-0400 SaO2% (BldA) [Mass fraction] 99 % No Primary Care Physician [facility] 06-03-2024 09:32-0400 Systolic blood pressure 89 mm[Hg] No Primary Care Physician [facility] 05-28-2024 07:51-0400 Body mass index (BMI) [Ratio] 16.9 kg/m2 No Primary Care Physician [facility] 05-28-2024 07:51-0400 Body temperature 98.2 [degF] No Primary Care Physician [facility] 05-28-2024 07:51-0400 Body weight 35.38 kg No Primary Care Physician [facility] 05-28-2024 07:51-0400 Diastolic blood pressure 58 mm[Hg] No Primary Care Physician [facility] 05-28-2024 07:51-0400 Heart rate 74 /min No Primary Care Physician [facility] 05-28-2024 07:51-0400 Respiratory rate 18 /min No Primary Care Physician [facility] 05-28-2024 07:51-0400 SaO2% (BldA) [Mass fraction] 100 % No Primary Care Physician [facility] 05-28-2024 07:51-0400 Systolic blood pressure 82 mm[Hg] No Primary Care Physician [facility] 05-15-2024 09:04-0500 Body height 144.[address] Chad Coleman DO Work Phone: [facility] 05-15-2024 09:04-0500 Body mass index (BMI) [Ratio] 18.6 kg/m2 Dr. Chad Coleman DO Work Phone: [facility] 05-15-2024 09:04-0500 Body weight 39.[address] Chad Coleman DO Work Phone: 7(226)610-350563 [place] [address] 05-15-2024 09:04-0500 Diastolic blood pressure 65 mm[Hg] Dr. Chad Coleman DO Work Phone: 2(553)697-705163 [place] [address] 05-15-2024 09:04-0500 Heart rate 68 /min Dr. Chad Coleman DO Work Phone: 9(580)173-927463 [place] [address] 05-15-2024 09:04-0500 Respiratory rate 16 /min Dr. Chad Coleman DO Work Phone: 7(306)330-165363 [place] [address] 05-15-2024 09:04-0500 SaO2% (BldA) [Mass fraction] 99 % Dr. Chad Coleman DO Work Phone: 2(727)881-771763 [place] [address] 05-15-2024 09:04-0500 Systolic blood pressure 96 mm[Hg] Dr. Chad Coleman DO Work Phone: 3(249)593-264563 [place] [address] 05-14-2024 12:11-0500 Body temperature 97.7 [degF] Dr. Chad Coleman DO Work Phone: 2(855)577-545263 [place] [address] 05-14-2024 12:11-0500 Diastolic blood pressure 47 mm[Hg] Dr. Chad Coleman DO Work Phone: 1(357)829-090363 [place] [address] 05-14-2024 12:11-0500 Heart rate 49 /min Dr. Chad Coleman DO Work Phone: 4(365)295-856963 [place] [address] 05-14-2024 12:11-0500 Respiratory rate 16 /min Dr. Chad Coleman DO Work Phone: 5(736)132-440763 [place] [address] 05-14-2024 12:11-0500 SaO2% (BldA) [Mass fraction] 98 % Dr. Chad Coleman DO Work Phone: [facility] 05-14-2024 12:11-0500 Systolic blood pressure 82 mm[Hg] Dr. Chad Coleman DO Work Phone: [facility] 05-13-2024 11:20-0500 Body weight 35.[address] Chad Coleman DO Work Phone: 0(360)122-705663 [place] [address] 05-13-2024 03:30-0500 Body mass index (BMI) [Ratio] 17.1 kg/m2 Dr. Chad Coleman DO Work Phone: 2(399)700-526263 [place] [address] 04-10-2024 07:22-0500 Body mass index (BMI) [Ratio] 17.3 kg/m2 Dr. hCad Coleman DO Work Phone: 1(570)148-881163 [place] [address] 04-10-2024 07:22-0500 Body weight 36.[address] Chad Coleman DO Work Phone: 5(809)053-232363 [place] [address] 04-10-2024 07:22-0500 Diastolic blood pressure 62 mm[Hg] Dr. Chad Coleman DO Work Phone: [facility] 04-10-2024 07:22-0500 Heart rate 91 /min Dr. Chad Coleman DO Work Phone: 0(480)097-510363 [place] [address] 04-10-2024 07:22-0500 Respiratory rate 16 /min Dr. Chad Coleman DO Work Phone: 9(904)079-455963 [place] [address] 04-10-2024 07:22-0500 Systolic blood pressure 78 mm[Hg] Dr. Chad Coleman DO Work Phone: [facility] 03-26-2024 14:53-0500 Body mass index (BMI) [Ratio] 17.1 kg/m2 Dr. Chad Coleman DO Work Phone: [facility] 03-26-2024 14:53-0500 Body temperature 97.7 [degF] Dr. Chad Coleman DO Work Phone: 4(346)191-913763 [place] [address] 03-26-2024 14:53-0500 Body weight 35.[address] Chad Coleman DO Work Phone: 5(592)222-549563 [place] [address] 03-26-2024 14:53-0500 Diastolic blood pressure 60 mm[Hg] Dr. Chad Coleman DO Work Phone: 9(857)681-016963 [place] [address] 03-26-2024 14:53-0500 Heart rate 84 /min Dr. Chad Coleman DO Work Phone: 0(719)714-976463 [place] [address] 03-26-2024 14:53-0500 Respiratory rate 16 /min Dr. Chad Coleman DO Work Phone: 5(357)433-137963 [place] [address] 03-26-2024 14:53-0500 SaO2% (BldA) [Mass fraction] 98 % Dr. Chad Coleman DO Work Phone: 8(020)560-581663 [place] [address] 03-26-2024 14:53-0500 Systolic blood pressure 110 mm[Hg] Dr. Chad Coleman DO Work Phone: 8(122)233-992863 [place] [address] 03-21-2024 08:58-0500 Body mass index (BMI) [Ratio] 17.1 kg/m2 Dr. Chad Coleman DO Work Phone: 5(681)481-914263 [place] [address] 03-21-2024 08:58-0500 Body temperature 97.4 [degF] Dr. Chad Coleman DO Work Phone: 2(276)833-285563 [place] [address] 03-21-2024 08:58-0500 Body weight 35.[address] Chad Coleman DO Work Phone: 7(230)901-734263 [place] [address] 03-21-2024 08:58-0500 Diastolic blood pressure 48 mm[Hg] Dr. Chad Coleman DO Work Phone: 2(161)034-265563 [place] [address] 03-21-2024 08:58-0500 Heart rate 102 /min Dr. Chad Coleman DO Work Phone: 0(157)229-902463 [place] [address] 03-21-2024 08:58-0500 Respiratory rate 17 /min Dr. Chad Coleman DO Work Phone: 8(926)733-490941 [address] 03-21-2024 08:58-0500 SaO2% (BldA) [Mass fraction] 99 % Dr. Chad Coleman DO Work Phone: 4(885)715-495861 [place] [address] 03-21-2024 08:58-0500 Systolic blood pressure 82 mm[Hg] Dr. Chad Coleman DO Work Phone: 6(810)033-349161 [place] [address] 03-08-2024 01:39-0500 Body temperature 97.8 [degF] Dr. Chad Coleman DO Work Phone: 5(235)473-683361 [place] [address] 03-08-2024 01:39-0500 Diastolic blood pressure 71 mm[Hg] Dr. Chad Coleman DO Work Phone: 2(635)062-708061 [place] [address] 03-08-2024 01:39-0500 Heart rate 101 /min Dr. Chad Coleman DO Work Phone: 6(672)042-642163 [place] [address] 03-08-2024 01:39-0500 Respiratory rate 18 /min Dr. Chad Coleman DO Work Phone: 7(574)930-798963 [place] [address] 03-08-2024 01:39-0500 SaO2% (BldA) [Mass fraction] 99 % Dr. Chad Coleman DO Work Phone: 4(861)061-082063 [place] [address] 03-08-2024 01:39-0500 Systolic blood pressure 103 mm[Hg] Dr. Chad Coleman DO Work Phone: 8(049)434-258363 [place] [address] 03-07-2024 21:23-0500 Body mass index (BMI) [Ratio] 17.2 kg/m2 Dr. Chad Coleman DO Work Phone: 3(858)941-582963 [place] [address] 03-07-2024 21:23-0500 Body weight 35.[address] Chad Coleman DO Work Phone: 0(189)512-024361 [place] [address] 03-03-2024 13:45-0500 Body mass index (BMI) [Ratio] 16.9 kg/m2 Dr. Chad Coleman DO Work Phone: 7(017)828-238763 [place] [address] 03-03-2024 13:45-0500 Body weight 35.[address] Chad Coleman DO Work Phone: 6(236)616-515061 [place] [address] 03-03-2024 13:45-0500 Diastolic blood pressure 67 mm[Hg] Dr. Chad Coleman DO Work Phone: 8(142)899-456261 [place] [address] 03-03-2024 13:45-0500 Heart rate 119 /min Dr. Chad Coleman DO Work Phone: 5(222)325-749163 [place] [address] 03-03-2024 13:45-0500 Respiratory rate 16 /min Dr. Chad Coleman DO Work Phone: 2(059)481-744363 [place] [address] 03-03-2024 13:45-0500 SaO2% (BldA) [Mass fraction] 98 % Dr. Chad Coleman DO Work Phone: 1(013)529-759863 [place] [address] 03-03-2024 13:45-0500 Systolic blood pressure 96 mm[Hg] Dr. Chad Coleman DO Work Phone: 8(649)925-008263 [place] [address] 02-29-2024 21:15-0500 Body temperature 98.1 [degF] Dr. Chad Coleman DO Work Phone: 4(553)273-030263 [place] [address] 02-29-2024 21:15-0500 Diastolic blood pressure 67 mm[Hg] Dr. Chad Coleman DO Work Phone: 6(528)718-895663 [place] [address] 02-29-2024 21:15-0500 Heart rate 85 /min Dr. Chad Coleman DO Work Phone: 6(901)474-437463 [place] [address] 02-29-2024 21:15-0500 Respiratory rate 15 /min Dr. Chad Coleman DO Work Phone: 9(878)475-410263 [place] [address] 02-29-2024 21:15-0500 SaO2% (BldA) [Mass fraction] 99 % Dr. Chad Coleman DO Work Phone: 9(674)479-833661 [place] [address] 02-29-2024 21:15-0500 Systolic blood pressure 101 mm[Hg] Dr. Chad Coleman DO Work Phone: 5(186)722-076861 [place] [address] 02-29-2024 17:06-0500 Body mass index (BMI) [Ratio] 17.3 kg/m2 Dr. Chad Coleman DO Work Phone: 9(847)897-678461 [place] [address] 02-29-2024 17:06-0500 Body weight 36.[address] Chad Coleman DO Work Phone: 2(505)031-755963 [place] [address] 02-21-2024 13:44-0500 Body mass index (BMI) [Ratio] 16.9 kg/m2 Dr. Chad Coleman DO Work Phone: 8(536)019-461063 [place] [address] 02-21-2024 13:44-0500 Body temperature 97.9 [degF] Dr. Chad Coleman DO Work Phone: 8(255)422-224163 [place] [address] 02-21-2024 13:44-0500 Body weight 35.[address] Chad Coleman DO Work Phone: 8(887)295-159563 [place] [address] 02-21-2024 13:44-0500 Diastolic blood pressure 50 mm[Hg] Dr. Chad Coleman DO Work Phone: 4(198)206-112261 [place] [address] 02-21-2024 13:44-0500 Heart rate 116 /min Dr. Chad Coleman DO Work Phone: 7(828)989-825861 [place] [address] 02-21-2024 13:44-0500 Respiratory rate 16 /min Dr. Chad Coleman DO Work Phone: 0(853)787-547061 [place] [address] 02-21-2024 13:44-0500 SaO2% (BldA) [Mass fraction] 98 % Dr. Chad Coleman DO Work Phone: 5(911)243-356961 [place] [address] 02-21-2024 13:44-0500 Systolic blood pressure 98 mm[Hg] Dr. Chad Coleman DO Work Phone: 4(024)903-521161 [place] [address] 02-07-2024 17:56-0500 Body temperature 98 [degF] Dr. Chad Coleman DO Work Phone: 3(581)930-199861 [place] [address] 02-07-2024 17:56-0500 Diastolic blood pressure 70 mm[Hg] Dr. Chad Coleman DO Work Phone: 9(152)060-489763 [place] [address] 02-07-2024 17:56-0500 Heart rate 102 /min Dr. Chad Coleman DO Work Phone: 6(948)208-137061 [place] [address] 02-07-2024 17:56-0500 Respiratory rate 18 /min Dr. Chad Coleman DO Work Phone: 3(701)329-260363 [place] [address] 02-07-2024 17:56-0500 SaO2% (BldA) [Mass fraction] 100 % Dr. Chad Coleman DO Work Phone: 3(493)900-821463 [place] [address] 02-07-2024 17:56-0500 Systolic blood pressure 101 mm[Hg] Dr. Chad Coleman DO Work Phone: 2(557)999-750163 [place] [address] 02-07-2024 15:28-0500 Body mass index (BMI) [Ratio] 17.3 kg/m2 Dr. Chad Coleman DO Work Phone: [facility] 02-07-2024 15:28-0500 Body weight 36.[address] Chad Coleman DO Work Phone: [facility] 11-08-2023 15:07-0400 Body height 144.8 cm Philippe Wallace ENDOCRINOLOGY PHYSICIAN.MANAGER CREDIT COLLECTIONS Work Phone: [facility] 11-08-2023 15:07-0400 Body mass index (BMI) [Ratio] 18.22 kg/m2 Philippenina Wallace ENDOCRINOLOGY PHYSICIAN.MANAGER CREDIT COLLECTIONS Work Phone: [facility] 11-08-2023 15:07-0400 Body weight 38.19 kg Philippenina Wallace ENDOCRINOLOGY PHYSICIAN.MANAGER CREDIT COLLECTIONS Work Phone: [facility] 11-08-2023 15:07-0400 Diastolic blood pressure 54 mm[Hg] Philippe Haury ENDOCRINOLOGY PHYSICIAN.MANAGER CREDIT COLLECTIONS Work Phone: [facility] 11-08-2023 15:07-0400 Heart rate 106 /min Philippenina Wallace ENDOCRINOLOGY PHYSICIAN.MANAGER CREDIT COLLECTIONS Work Phone: [facility] 11-08-2023 15:07-0400 Respiratory rate 12 /min Philippe Hahong ENDOCRINOLOGY PHYSICIAN.MANAGER CREDIT COLLECTIONS Work Phone: [facility] 11-08-2023 15:07-0400 SaO2% (BldA) [Mass fraction] 98 % Philippe Hahong ENDOCRINOLOGY PHYSICIAN.MANAGER CREDIT COLLECTIONS Work Phone: [facility] 11-08-2023 15:07-0400 Systolic blood pressure 80 mm[Hg] Philippe Haury ENDOCRINOLOGY PHYSICIAN.MANAGER CREDIT COLLECTIONS Work Phone: [facility] 05-29-2023 13:12-0400 Body height 143 cm Caren Shine MD Work Phone: [facility] 05-29-2023 13:12-0400 Body weight 39.92 kg Caren Shine MD Work Phone: [facility] 05-29-2023 13:12-0400 Diastolic blood pressure 60 mm[Hg] Caren Shine MD Work Phone: [facility] 05-29-2023 13:12-0400 Systolic blood pressure 110 mm[Hg] Caren Shine MD Work Phone: [facility] 01-18-2022 07:48-0500 Body temperature 96.91 [degF] Vicky Mayfield APRN.MANAGER CREDIT COLLECTIONS Work Phone: [facility] 01-18-2022 07:48-0500 Body weight 35.38 kg Vicky Mayfield APRN.MANAGER CREDIT COLLECTIONS Work Phone: [facility] 01-18-2022 07:48-0500 Diastolic blood pressure 58 mm[Hg] Vicky Mayfield APRN.MANAGER CREDIT COLLECTIONS Work Phone: [facility] 01-18-2022 07:48-0500 Heart rate 80 /min Vicky Mayfield APRN.MANAGER CREDIT COLLECTIONS Work Phone: [facility] 01-18-2022 07:48-0500 Respiratory rate 16 /min Vicky Mayfield APRN.MANAGER CREDIT COLLECTIONS Work Phone: [facility] 01-18-2022 07:48-0500 SaO2% (BldA) [Mass fraction] 98 % Vicky Mayfield APRN.MANAGER CREDIT COLLECTIONS Work Phone: [facility] 01-18-2022 07:48-0500 Systolic blood pressure 88 mm[Hg] Vicky Mayfield APRN.MANAGER CREDIT COLLECTIONS Work Phone: [facility] 10-26-2021 14:36-0400 Body height 144.8 cm Magda Lindsay APRN.CNM Work Phone: [facility] 10-26-2021 14:36-0400 Body weight 38.1 kg Magda Lindsay APRN.CNM Work Phone: [facility] 10-26-2021 14:36-0400 Diastolic blood pressure 58 mm[Hg] Magda Lindsay MARJORIE.CNM Work Phone: [facility] 10-26-2021 14:36-0400 Systolic blood pressure 86 mm[Hg] Magda Lindsay APRN.CNM Work Phone: [facility] 09-26-2021 13:27-0400 Body weight 39.01 kg Magda Lindsay APRN.CNM Work Phone: [facility] 09-26-2021 13:27-0400 Diastolic blood pressure 72 mm[Hg] Magda Lindsay APRN.CNM Work Phone: [facility] 09-26-2021 13:27-0400 Systolic blood pressure 112 mm[Hg] Magda Lindsay APRN.CNM Work Phone: [facility] 09-07-2021 06:20-0400 Diastolic blood pressure 70 mm[Hg] [facility] Work Phone: 09-07-2021 06:20-0400 Heart rate 80 /min [facility] Work Phone: 09-07-2021 06:20-0400 Respiratory rate 19 /min [facility] Work Phone: 09-07-2021 06:20-0400 SaO2% (BldA) [Mass fraction] 98 % [facility] Work Phone: 09-07-2021 06:20-0400 Systolic blood pressure 110 mm[Hg] [facility] Work Phone: 09-07-2021 03:11-0400 Body height 144.78 cm [facility] Work Phone: 09-07-2021 03:11-0400 Body mass index (BMI) [Ratio] 19.4 kg/m2 [facility] Work Phone: 09-07-2021 03:11-0400 Body temperature 98.2 [degF] [facility] Work Phone: 09-07-2021 03:11-0400 Body weight 40.7 kg [facility] Work Phone: Encounters Encounter Date Encounter Type Care Provider Facility Start: 07-17-2024 ambulatory Cj [place] Facility:[facility] Start: 07-15-2024 ambulatory Ashley Nino ty:[facility] Start: 07-15-2024 End: 07-16-2024 Evaluation and management of inpatient NÉSTOR GRECO Facility:[facility] Start: 07-14-2024 End: 07-14-2024 Emergency department patient visit THADDEUS TOMLINSON Facility:[facility] Start: 06-26-2024 ambulatory Cj [place] Facility:[facility] Start: 06-23-2024 End: 06-23-2024 Patient encounter procedure Caren Shine MD Work Phone: OB/Gynecology Comment on above: Encounter for gyneco logical examination (general) (routine) with abnormal findings (Primary Dx); Encounter for screening for malignant neoplasm of cervix; Special screening examination for human papillomavirus (HPV); Left ovarian cyst Start: 06-23-2024 End: 06-23-2024 Patient encounter status Caren Shine MD Work Phone: [facility] Work Phone: Start: 06-23-2024 End: 06-23-2024 ambulatory CAREN SHINE Facility:[facility] Start: 06-23-2024 Encounter for gynecological examination (general) (routine) with abnormal findings CAREN SHINE [facility] Start: 06-03-2024 End: 06-03-2024 ambulatory No Primary Care Physician [facility] Work Phone: Start: 06-03-2024 End: 06-03-2024 Patient encounter procedure Antonio VEGAS -Laboratory, [facility] Start: 06-03-2024 End: 06-03-[address] Cj Mcpherson MD -[facility] Work Phone: Start: 06-03-2024 End: 06-03-2024 ambulatory Cj Mcpherson Facility:[facility] Start: 06-03-2024 End: 06-03-2024 ambulatory Antonio VEGAS Facility:[facility] Start: 05-28-2024 End: 05-28-2024 Patient encounter procedure Antonio VEGAS -[facility] Work Phone: Start: 05-28-2024 End: 05-28-2024 ambulatory Antonio VEGAS Facility:[facility] Start: 05-15-2024 End: 05-15-2024 Patient encounter procedure Ashley Caruso DATA SERVICES DEVELOPER-C -[facility] Work Phone: Start: 05-15-2024 End: 05-15-[address] Chad Coleman DO Work Phone: [facility] Work Phone: Start: 05-15-2024 End: 05-15-2024 ambulatory Ashley Caruso Facility:[facility] Start: 05-14-2024 Non-patient / Non-visit Dr. Yousuf Pleitez MD -[facility] Work Phone: Start: 05-13-2024 ambulatory [facility] Facility:[facility] Start: 05-13-2024 End: 05-14-2024 Evaluation and management of inpatient Dr. Yousuf Pleitez MD -[facility] 2 Work Phone: Start: 05-13-2024 End: 05-14-2024 ambulatory [facility] Facility:[facility] Start: 05-13-2024 Non-patient / Non-visit Dr. Josiah blount MD -[facility] Work Phone: Start: 04-10-2024 ambulatory Antonio VEGAS Facilit y:[facility] Start: 04-10-2024 Non-patient / Non-visit Dr. Brendon english MD -[facility] Start: 04-10-2024 End: 04-10-2024 Patient encounter procedure Antonio VEGAS -Cardiovascular Services Work Phone: Start: 04-10-2024 End: 04-10-[address] Brendon Dave MD -[facility] Work Phone: Start: 04-10-2024 End: 04-10-2024 ambulatory Antonio VEGAS Facility:[facility] Start: 04-10-2024 End: 04-10-2024 ambulatory Antonio VEGAS Facility:[facility] Start: 03-26-2024 End: 03-26-2024 Patient encounter procedure Antonio VEGAS -[facility] Work Phone: Start: 03-26-2024 End: 03-26-2024 ambulatory Antonio VEGAS Facility:[facility] Start: 03-25-2024 ambulatory Antonio VEGAS Facilit y:[facility] Start: 03-25-2024 Non-patient / Non-visit Dr. Brendon english MD -[facility] Work Phone: Start: 03-25-2024 End: 03-25-2024 Patient encounter procedure Antonio VEGAS -Pulmonary Services/Neurology Work Phone: Start: 03-25-2024 End: 03-25-2024 ambulatory Antonio VEGAS Facility:[facility] Start: 03-24-2024 End: 03-24-2024 Patient encounter procedure Antonio VEGAS -Laboratory, [place] Start: 03-24-2024 End: 03-24-2024 ambulatory Antonio VEGAS Facility:[facility] Start: 03-21-2024 End: 03-21-2024 Patient encounter procedure Antonio VEGAS -[facility] Work Phone: Start: 03-21-2024 End: 03-21-2024 ambulatory Antonio VEGAS Facility:[facility] Start: 03-07-2024 End: 03-08-2024 Emergency department patient visit Guerrero Fuller DO -Emergency Department Work Phone: Start: 03-06-2024 End: 03-06-2024 ambulatory ALBA DIAZ Facility:[facility] Start: 03-06-2024 End: 03-06-2024 Patient encounter procedure Fidencio Mcpherson APRN.MANAGER CREDIT COLLECTIONS Work Phone: [facility] Comment on above: Procedure not kate d out (Primary Dx) Start: 03-03-2024 End: 03-03-2024 Patient encounter procedure Ashley Caruso DATA SERVICES DEVELOPER-C -Laboratory Work Phone: Start: 03-03-2024 End: 03-03-2024 Patient encounter procedure Ashley THRASHER -[facility] Work Phone: Start: 03-03-2024 End: 03-03-2024 ambulatory No Primary Care Physician Facility:[facility] Start: 03-03-2024 End: 03-03-2024 ambulatory Ashley Caruso Facility:[facility] Start: 02-29-2024 End: 02-29-2024 Emergency department patient visit Dr. Jose Guadalupe Lazo DO -Emergency Department Work Phone: Start: 02-21-2024 End: 02-21-2024 Patient encounter procedure Antonio VEGAS -Laboratory, Specimen Work Phone: Start: 02-21-2024 End: 02-21-2024 Patient encounter procedure Antonio VEGAS -[facility] Work Phone: Start: 02-21-2024 End: 02-21-2024 ambulatory No Primary Care Physician Facility:[facility] Start: 02-21-2024 End: 02-21-2024 ambulatory No Primary Care Physician Facility:[facility] Start: 02-07-2024 End: 02-07-2024 Emergency department patient visit Dr. Chad Coleman DO -Emergency Department Work Phone: Start: 01-25-2024 End: 01-25-2024 ambulatory Philippe Vicente Facility:[facility] Start: 01-11-2024 End: 01-11-2024 Emergency department patient visit Damaris Almaraz Facility:[facility] Start: 11-19-2023 End: 11-19-2023 Orders Only Philippe Wallace ENDOCRINOLOGY PHYSICIAN.MANAGER CREDIT COLLECTIONS Work Phone: OB/Gynecology Comment on above: Ovarian cyst, left ( Primary Dx) Start: 11-09-2023 End: 11-09-2023 ambulatory PHILIPPE CLAIR OB/Gynecology Start: 11-09-2023 End: 11-09-2023 Patient encounter procedure Whi Tech 1 [employer] OB/Gynecology Start: 11-08-2023 End: 11-08-2023 ambulatory ALBA DIAZ Facility:[facility] Start: 11-08-2023 End: 11-08-2023 Patient encounter procedure Philippe Wallace MARJORIE.MANAGER CREDIT COLLECTIONS Work Phone: OB/Gynecology Comment on above: Ovarian cyst, left ( Primary Dx); Other intra-abdominal and pelvic swelling, mass and lump Start: 11-08-2023 End: 11-08-2023 ambulatory [facility] Facility:[facility] Start: 11-06-2023 End: 11-06-2023 ambulatory [facility] Facility:[facility] Start: 11-06-2023 End: 11-06-2023 ambulatory [facility] Facility:[facility] Start: 10-17-2023 End: 10-17-2023 Emergency department patient visit [facility] Facility:[facility] Start: 05-29-2023 End: 05-29-2023 Patient encounter procedure Caren Shine MD Work Phone: OB/Gynecology Comment on above: Vaginal itching (Shari ally Dx); Crohn's disease of small intestine with other complication (HCC); Bruising; Celiac disease; Screening for deficiency anemia; Screening for diabetes mellitus; Screening for metabolic disorder; Screening for thyroid disorder; Encounter for vitamin deficiency screening Start: 10-25-2022 Refill Alisia friedman MD, PhD Work Phone: Endocrinology Comment on above: Refill Request Start: 01-18-2022 ambulatory Marisol Prince Work Phone: Kidney Medicine Comment on above: Blood work Start: 01-18-2022 End: 01-18-2022 Patient encounter procedure Vicky Mayfield ENDOCRINOLOGY PHYSICIAN.MANAGER CREDIT COLLECTIONS Work Phone: [facility] Comment on above: Urinary frequency (P rimary Dx); Burning with urination Start: 10-31-2021 Telephone encounter Renetta gallego ENDOCRINOLOGY PHYSICIAN.MANAGER CREDIT COLLECTIONS Work Phone: OB/Gynecology Comment on above: Results Start: 10-26-2021 End: 10-26-2021 Patient encounter procedure Magda Lindsay APRN.CNM Work Phone: OB/Gynecology Comment on above: Encounter for gyneco logical examination (general) (routine) without abnormal findings (Primary Dx); Vaginal discharge; Vulvar itching; Spongiotic dermatitis; control counseling Start: 10-26-2021 End: 10-26-2021 Patient encounter status Magda Lindsay APRN.CNM Work Phone: OB/Gynecology Start: 10-15-2021 Refill Alisia friedman MD, PhD Work Phone: Endocrinology Comment on above: Refill Request Start: 09-29-2021 Telephone encounter Nurse Micha [facility] Farhana Work Phone: Reproductive Endocrinology Infertility Comment on above: Mailed embryo destro y form Start: 09-26-2021 End: 09-26-2021 Patient encounter procedure Magda Lindsay APRN.CNM Work Phone: OB/Gynecology Comment on above: Vulvar itching (Prim zeina Dx); Vaginal itching Start: 09-07-2021 End: 09-07-2021 Emergency department patient visit [facility] Start: 08-10-2021 Telephone encounter Darcy Ling APRN.MANAGER CREDIT COLLECTIONS Work Phone: [facility] Comment on above: Insurance Authorizat ion (Prior Auth Delayed: Additional Information Needed (Entyvio)) Start: 06-06-2021 End: 06-06-2021 ambulatory Darin Cormier MD Work Phone: Gastroenterology Comment on above: Crohn's disease of s mall and large intestines with complication (HCC) (Primary Dx) Start: 06-06-2021 End: 06-06-2021 Telemedicine consultation with patient Darin Cormier MD Work Phone: [facility] Start: 06-06-2021 Telephone encounter Magda wylie APRN.CNP Work Phone: Gastroenterology Comment on above: ED Follow-up Start: 03-15-2020 End: 03-15-2020 Subsequent hospital visit by physician [facility] Work Phone: Radiology Comment on above: Nodule of neck [R22. 1] Start: 03-23-2017 Ambulatory [facility] Procedures Date Procedure Procedure Detail Performing Clinician Start: 05-13-2024 Bacteria identificat ion test Dr. Chad Coleman DO Work Phone: Start: 05-13-[address] Chad Coleman DO Work Phone: Start: 05-13-2024 SARS-CoV-2, Influenz a & RSV (PCR) Dr. Chad Coleman DO Work Phone: Start: 05-13-[address] Pascual Coleman DO Work Phone: Start: 05-13-2024 X-ray of chest, PA a nd lateral views Dr. Chad Coleman DO Work Phone: Start: 05-12-2024 Streptococcus pyogen es rRNA assay Dr. Chad Coleman DO Work Phone: Start: 03-07-2024 Plain chest X-ray Dr. Duran Coleman DO Work Phone: Start: 03-03-[address] Chad Coleman DO Work Phone: Start: 02-21-2024 SARS-CoV-2, Influenz a & RSV (PCR) Dr. Chad Coleman DO Work Phone: Start: 02-07-2024 Plain chest X-ray Dr. Duran Coleman DO Work Phone: Start: 02-07-2024 SARS-CoV-2, Influenz a & RSV (PCR) Dr. Chad Coleman DO Work Phone: Start: 11-09-2023 Us pelvic nonobstetr ic real-time image complete Philippe Wallace APRN.MANAGER CREDIT COLLECTIONS Work Phone: Start: 01-18-2022 Urnls dip stick/tabl et rgnt auto w/o microscopy Saulo Mcpherson ENDOCRINOLOGY PHYSICIAN.ART Work Phone: Start: 06-07-2020 Adult depression scr eening assessment Darin Cormier MD Work Phone: Start: 03-15-2020 Us soft tissue head & neck real time imge docm Katlyn Cox ENDOCRINOLOGY PHYSICIAN.MANAGER CREDIT COLLECTIONS Work Phone: Plan of Treatment Date Care Activity Detail Author Start: 2046 HEPATITIS B (1 of 3 - Risk 3-dose series) HEPATITIS B (1 of 3 - Risk 3-dose series) [facility] Start: 2046 Hepatitis B Vaccine (1 of 3 - Risk 3-dose series) Hepatitis B Vaccine (1 of 3 - Risk 3-dose series) [facility] Start: 01-24-2029 Urine microalbumin profile [facility] Start: 09-28-2025 HPV TESTING HPV TESTING [facility] Start: 09-28-2025 PAP TESTING PAP TESTING [facility] Start: 09-28-2025 Screening for malignant neoplasm of cervix [facility] Start: 11-18-2024 End: 11-18-2024 US Pelvis PELVIC US [facility] Anc Imaging Routine Ovarian cyst, left Expected: 11/18/2024, Expires: 11/18/[address] [facility] Work Phone: Comment on above: Expected: 11/18/2024, Expires: Start: 06-26-2024 DXA Bone [Mass/Area] Bone density [facility] Start: 06-23-2024 End: 06-23-2024 Patient encounter procedure 06/23/2024 1:20 PM EDT Office Visit OB/Gynecology [address] [place] [address] Caren Houser MD [address] [place], [place] [id number] ANNUAL OB/Gynecology Comment on above: ANNUAL Start: 05-28-2024 Creatinine measurement Serum Creatinine [facility] Start: 05-14-2024 Patient discharge [facility] Start: 05-13-2024 Admission procedure [facility] Start: 05-13-2024 Application of intermittent pneumatic compression device [facility] Start: 05-13-2024 Following clinical pathway protocol [facility] Start: 05-13-2024 Ambulation without limitation [facility] Start: 05-13-2024 Assessment of risk of venous thromboembolism [facility] Start: 05-13-2024 Insertion of catheter into peripheral vein [facility] Start: 05-13-2024 Providing care according to standard [facility] Start: 05-13-2024 [facility] Start: 05-13-2024 Admission procedure [facility] Start: 05-13-2024 Patient referral to dietitian [facility] Start: 04-10-2024 Patient referral [facility] Work Phone: Start: 04-10-2024 Evaluation of diagnostic study results [facility] Start: 03-08-2024 [facility] Start: 03-07-2024 [facility] Start: 02-29-2024 End: 02-29-2024 [facility] Start: 02-20-2024 End: 02-20-2024 Patient encounter procedure 02/20/2024 8:20 AM EST Office Visit OB/Gynecology [address] [place] [address] Caren Houser MD [address] [place] [address] ANNUAL OB/Gynecology Comment on above: ANNUAL Start: 02-07-2024 [facility] Start: 11-11-2023 Covid-19 Vaccine ( season) Covid-19 Vaccine ( season) [facility] Start: 11-11-2023 Covid-19 Vaccine ( season) Covid-19 Vaccine ( season) [facility] Start: 11-11-2023 Influenza vaccination Influenza Vaccine (#1) [facility] Start: 11-09-2023 End: 11-09-2023 ambulatory 11/09/2023 2:00 PM EDT Procedure OB/Gynecology [address] [place] [address] Ovarian cyst, left [N83.202] OB/Gynecology Comment on above: Ovarian cyst, left [N83.202] Start: 11-08-2023 End: 11-07-2024 US Pelvis PELVIC US [facility] Anc Imaging Routine Ovarian cyst, left Expected: 11/08/2023, Expires: 11/07/[address] [facility] Work Phone: Comment on above: Expected: 11/08/2023, Expires: 5 Start: 06-07-2023 SERUM CREATININE SERUM CREATININE [facility] Start: 05-29-2023 End: 08-28-2023 Cobalamin (Vitamin B12) [Mass/volume] in Serum or Plasma [facility] Work Phone: Comment on above: Expected: 05/29/2023, Expires: 4 Start: 05-29-2023 End: 08-28-2023 Thyrotropin [Units/volume] in Serum or Plasma [facility] Work Phone: Comment on above: Expected: 05/29/2023, Expires: 4 Start: 03-12-2023 Depression Assessment Depression Assessment [facility] Start: 11-10-2022 Covid-19 Vaccine () Covid-19 Vaccine () [facility] Start: 11-10-2022 Influenza vaccination [facility] Start: 06-04-2022 HEMOGLOBIN/HEMATOCRIT HEMOGLOBIN/HEMATOCRIT [facility] Start: 06-04-2022 SERUM CREATININE SERUM CREATININE [facility] Start: 03-12-2022 DEPRESSION ASSESSMENT DEPRESSION ASSESSMENT [facility] Start: 01-23-2022 End: 01-19-2023 25-hydroxyvitamin D3 [Mass/volume] in Serum or Plasma VITAMIN D 25 HYDROXY Lab Routine Stage 3 chronic kidney disease, unspecified whether stage 3a or 3b CKD (HCC) Vitamin D deficiency Expected: 01/23/2022, Expires: 01/19/[address] [facility] Work Phone: Comment on above: Expected: 01/23/2022, Expires: 3 Start: 01-23-2022 End: 01-19-2023 CBC W Auto Differential panel - Blood CBC + DIFF Lab Routine Stage 3 chronic kidney disease, unspecified whether stage 3a or 3b CKD (HCC) Vitamin D deficiency Expected: 01/23/2022, Expires: 01/19/[address] [facility] Work Phone: Comment on above: Expected: 01/23/2022, Expires: 3 Start: 01-23-2022 End: 01-19-2023 Parathyrin.intact [Mass/volume] in Serum or Plasma PTH INTACT BLD Lab Routine Stage 3 chronic kidney disease, unspecified whether stage 3a or 3b CKD (HCC) Vitamin D deficiency Expected: 01/23/2022, Expires: 01/19/[address] [facility] Work Phone: Comment on above: Expected: 01/23/2022, Expires: 3 Start: 01-23-2022 End: 01-19-2023 Protein/Creatinine [Mass Ratio] in Urine PROTEIN CREATININE RATIO Lab Routine Stage 3 chronic kidney disease, unspecified whether stage 3a or 3b CKD (HCC) Vitamin D deficiency Expected: 01/23/2022, Expires: 01/19/[address] [facility] Work Phone: Comment on above: Expected: 01/23/2022, Expires: 3 Start: 01-23-2022 End: 01-19-2023 Renal function 2000 panel - Serum or Plasma RENAL FUNCTION PANEL Lab Routine Stage 3 chronic kidney disease, unspecified whether stage 3a or 3b CKD (HCC) Vitamin D deficiency Expected: 01/23/2022, Expires: 01/19/[address] [facility] Work Phone: Comment on above: Expected: 01/23/2022, Expires: 3 Start: 01-23-2022 End: 01-19-2023 Urinalysis complete panel - Urine URINALYSIS WITH MICROSCOPIC, REFLEX CULTURE Lab Routine Stage 3 chronic kidney disease, unspecified whether stage 3a or 3b CKD (HCC) Vitamin D deficiency Expected: 01/23/2022, Expires: 01/19/[address] [facility] Work Phone: Comment on above: Expected: 01/23/2022, Expires: 3 Start: 11-10-2021 Influenza vaccination INFLUENZA (#1) [facility] Start: 09-07-2021 [facility] Work Phone: Start: 09-06-2021 End: 11-06-2021 VITAMIN D 25 HYDROXY VITAMIN D 25 HYDROXY Lab Routine Hypovitaminosis D Expected: 09/06/2021 (Approximate), Expires: 11/06/[address] [facility] Work Phone: Comment on above: Expected: 09/06/2021 (Approximate), Expi res: 11/06/2021 Start: 06-07-2021 Adult depression screening assessment DEPRESSION SCREENING [facility] Start: 06-07-2021 ANNUAL PCP TEAM CHRONIC DISEASE VISIT ANNUAL PCP TEAM CHRONIC DISEASE VISIT [facility] Start: 06-06-2021 End: 08-06-2021 Basic metabolic 2000 panel - Serum or Plasma [facility] Work Phone: Comment on above: Expected: 06/06/2021, Expires: 2 Start: 06-06-2021 End: 08-06-2021 CBC panel - Blood by Automated count CBC Lab Routine Crohn's disease of small and large intestines with complication (HCC) Expected: 06/06/2021, Expires: 08/06/[address] [facility] Work Phone: Comment on above: Expected: 06/06/2021, Expires: 2 Start: 06-06-2021 End: 08-06-2021 Chronic hepatitis differentiation between hepatitis B and C virus panel - Serum or Plasma HEP REMOTE PANEL BL Lab Routine Crohn's disease of small and large intestines with complication (HCC) Expected: 06/06/2021, Expires: 08/06/[address] [facility] Work Phone: Comment on above: Expected: 06/06/2021, Expires: 2 Start: 04-25-2021 COVID-19 VACCINE (4 - Booster for Moderna series) COVID-19 VACCINE (4 - Booster for Moderna series) [facility] Start: 04-25-2021 COVID-19 VACCINE (4 - Moderna series) COVID-19 VACCINE (4 - Moderna series) [facility] Start: 03-12-2021 DEPRESSION ASSESSMENT DEPRESSION ASSESSMENT [facility] Start: 01-20-2011 PNEUMOCOCCAL (2 - PCV) PNEUMOCOCCAL (2 - PCV) [facility] Start: 01-20-2011 Pneumococcal vaccination Pneumococcal Vaccine (2 of 2 - PCV) [facility] Start: 2005 HEPATITIS A (1 of 2 - Risk 2-dose series) HEPATITIS A (1 of 2 - Risk 2-dose series) [facility] Start: 2005 Hepatitis A Vaccine (1 of 2 - Risk 2-dose series) Hepatitis A Vaccine (1 of 2 - Risk 2-dose series) [facility] Start: 2005 HEPATITIS B (1 of 3 - Risk 3-dose series) HEPATITIS B (1 of 3 - Risk 3-dose series) [facility] Start: 2005 Hepatitis B Vaccine (1 of 3 - 19+ 3-dose series) Hepatitis B Vaccine (1 of 3 - 19+ 3-dose series) [facility] Start: 2004 Anxiety Screening Anxiety Screening [facility] Start: 2004 Depression Screening Depression Screening [facility] Start: 2004 MMR (1 of 2 - Risk 2-dose series) MMR (1 of 2 - Risk 2-dose series) [facility] Start: 2004 MMR Vaccine (1 of 2 - Risk 2-dose series) MMR Vaccine (1 of 2 - Risk 2-dose series) [facility] Start: 1996 Meningococcal B Vaccine: Consider Based On Risk (1 of 4 - Increased Risk) Meningococcal B Vaccine: Consider Based On Risk (1 of 4 - Increased Risk) [facility] Start: 1996 MENINGOCOCCAL B: Consider based on risk (1 of 4 - Increased Risk Bexsero 2-dose series) MENINGOCOCCAL B: Consider based on risk (1 of 4 - Increased Risk Bexsero 2-dose series) [facility] Start: 1996 MENINGOCOCCAL B: Consider based on risk (1 of 4 - Increased Risk) MENINGOCOCCAL B: Consider based on risk (1 of 4 - Increased Risk) [facility] Start: 12-16-1987 HEPATITIS A (1 of 2 - Risk 2-dose series) HEPATITIS A (1 of 2 - Risk 2-dose series) [facility] Bacteria identified in Urine by Culture Urine Culture [facility] Work Phone: Bacteria identified in Urine by Culture URINE CULTURE Microbiology Routine Urinary frequency Burning with urination Ordered: 01/18/[address] [facility] Work Phone: Comment on above: Ordered: 01/18/2022 BACTERIAL VAGINOSIS AMPLIFICATION BACTERIAL VAGINOSIS AMPLIFICATION Lab Routine Vaginal itching 09/26/2021 3:52 PM EDT [facility] Work Phone: BACTERIAL VAGINOSIS AMPLIFICATION BACTERIAL VAGINOSIS AMPLIFICATION Lab Routine Vaginal discharge Ordered: 10/26/[address] [facility] Work Phone: Comment on above: Ordered: 10/26/2021 SOLOMON / TRICHOMONA S AMPLIFICATION SOLOMON / TRICHOMONAS AMPLIFICATION Lab Routine Vaginal itching 09/26/2021 3:52 PM EDT [facility] Work Phone: SOLOMON / TRICHOMONA S AMPLIFICATION SOLOMON / TRICHOMONAS AMPLIFICATION Lab Routine Vaginal discharge Ordered: 10/26/[address] [facility] Work Phone: Comment on above: Ordered: 10/26/2021 Corticotropin [Mass/ volume] in Plasma [facility] Dehydroepiandrostero ne sulfate (DHEA-S) [Mass/volume] in Serum or Plasma [facility] End: 12-07-2024 MR Pelvis WO and W contrast IV MRI FEMALE PELVIS WO/W IVCON Radiology Routine Other intra-abdominal and pelvic swelling, mass and lump 1 Occurrences starting 11/08/2023 until 12/07/2024 [facility] Comment on above: 1 Occurrences starting 11/08/2023 until 12/07/2024 MRI of small intestine [facility] MRI of small intestine [facility] PAP TEST PAP TEST Lab Mandi anaya Encounter for screening for malignant neoplasm of cervix Special screening examination for human papillomavirus (HPV) Ordered: 06/23/[address] [facility] Work Phone: Comment on above: Ordered: 06/23/2024 Patient Education [facility] Work Phone: Patient referral [facility] Work Phone: SURGICAL PATHOLOGY SURGICAL PATH OLOGY Lab Routine Vulvar itching 09/26/2021 3:52 PM EDT [facility] Work Phone: Tilt table test [facility] Immunizations Immunization Date Immunization Notes Care Provider [facility] 02-28-2021 Covid (Moderna) Dr. Chad Coleman DO Work Phone: [facility] 01-26-2021 Seasonal, quadrivale nt, recombinant, injectable influenza vaccine, preservative free Fidencio Pendlebury ENDOCRINOLOGY PHYSICIAN.MANAGER CREDIT COLLECTIONS Work Phone: [facility] 01-26-2021 influenza virus vacc ine, unspecified formulation Caren Shine MD Work Phone: [facility] 05-21-2020 COVID-19 vaccine, fu ll dose (MODERNA) Darin Cormier MD Work Phone: [facility] Work Phone: 04-23-2020 COVID-19 vaccine, fu ll dose (MODERNA) Darin Cormier MD Work Phone: [facility] 01-22-2020 Seasonal, quadrivale nt, recombinant, injectable influenza vaccine, preservative free Fidencio Pendlebury ENDOCRINOLOGY PHYSICIAN.MANAGER CREDIT COLLECTIONS Work Phone: [facility] 01-24-2019 influenza, injectabl e, quadrivalent, contains preservative Darin Cormier MD Work Phone: [facility] 01-24-2019 influenza, injectabl e, quadrivalent, preservative free Dr. Chad Coleman DO Work Phone: [facility] 01-24-2019 tetanus toxoid, redu jordan diphtheria toxoid, and acellular pertussis vaccine, adsorbed Darin Cormier MD Work Phone: [facility] 01-20-2010 influenza virus vacc ine, unspecified formulation Darin Cormier MD Work Phone: [facility] 01-20-2010 pneumococcal polysaccharide vaccine, 23 valent Darin Cormier MD Work Phone: [facility] Payers Date Payer Category Payer Self-pay [id number] 2023 Self-pay [id number] 2021 Private Health Insurance [facility] CHOICE PLUS [id number] 2021-Present [phone] [address] [place] [address] [facility] [place] [id number] 2021 Unknown [id number] 2019 Private Health Insurance [facility] CHOICE PLUS [id number] 2019-Present [phone] [address] [address] [place] [address] [facility] [place] [id number]. [id number] 2019 Private Health Insurance [id number]. [id number] Unknown [id number] Unknown [facility] DAINA [id number] Unknown [id number] 2.16.840.1.789371.3.579.2. 462 Unknown [id number] 2.16.840.1.804140.3.579.2. 462 Unknown [id number] 2.16.840.1.904690.3.579.2. 462 Unknown [id number] 2.16.840.1.641399.3.579.2. 462 Unknown [id number] 2.16.840.1.012448.3.579.2. 462 Unknown [id number] 2.16.840.1.415812.3.579.2. 462 Unknown [id number] 2.16.840.1.950569.3.579.2. 462 Unknown [id number] 2.16.840.1.248226.3.579.2. 462 Unknown [id number] 2..840.1.287540.3.579.2. 462 Unknown [id number] 2.840.1.678003.3.579.2. 462 Unknown [id number] 2.16.840.1.480280.3.579.2. 462 Unknown [id number] 2.840.1.731615.3.579.2. 462 Unknown [id number] 2..840.1.617983.3.579.2. 462 Unknown [id number] 2.16.840.1.158176.3.579.2. 462 Unknown [id number] 2.16.840.1.965481.3.579.2. 462 Unknown [id number] 2.16.840.1.758185.3.579.2. 462 Unknown [id number] 2.16.840.1.723984.3.579.2. 462 Unknown [id number] 2.16.840.1.179741.3.579.2. 462 Unknown [id number] 2.16.840.1.654256.3.579.2. 462 Unknown [id number] 2.16.840.1.265681.3.579.2. 462 Unknown [id number] 2.16.840.1.380487.3.579.2. 462 Unknown [id number] 2.16.840.1.150554.3.579.2. 462 Unknown [id number] 2.16.840.1.601865.3.579.2. 462 Unknown [id number] 2.16.840.1.288642.3.579.2. 462 Unknown [id number] 2.16.840.1.912579.3.579.2. 462 Unknown [id number] 2.16.840.1.967538.3.579.2. 462 Unknown [id number] 2.16.840.1.622870.3.579.2. 462 Unknown [id number] 2.16.840.1.476890.3.579.2. 462 Unknown [id number] 2.16.840.1.683768.3.579.2. 462 Unknown [id number] 2.16.840.1.865398.3.579.2. 462 Unknown [id number] 2.16.840.1.363584.3.579.2. 462 Unknown [id number] 2.16.840.1.176536.3.579.2. 462 Unknown [id number] 2.16.840.1.076872.3.579.2. 462 Social History Date Type Detail Facility Start: 10-26-2021 End: 06-03-2024 Tobacco smoking status NHIS Never smoked tobacco [facility] Start: 06-04-2021 End: 06-23-2024 Alcohol intake Ex-drinker (finding) [facility] Start: 01-27-2019 End: 09-24-2019 History SDOH Alcohol Frequency 2 [facility] Start: 01-27-2019 End: 09-24-2019 History SDOH Alcohol Std Drinks 1 [facility] Start: 05-25-2020 History SDOH Alcohol Comment very rarely, none for one year 05/25/20 [facility] Start: 01-27-2019 History SDOH Social Connections Phone 5 [facility] Start: 01-27-2019 History SDOH Social Connections Get Together 3 [facility] Start: 01-27-2019 History SDOH Physica l Activity DPW 0 [facility] Start: 09-24-2019 History SDOH Financial 4 [facility] Start: 01-26-2019 Education 17 [facility] Start: 1985 Sex Assigned At Female C [facility] Start: 02-14-2020 End: 01-18-2022 Exposure to SARS-CoV-2 (event) Not sure [facility] Start: 09-07-2021 Tobacco smoking stat us KSIS Unknown if ever smoked [facility] Work Phone: Start: 07-23-2018 Rare [facility] Start: 07-23-2018 Spouse/ Signif icant Other [facility] Start: 10-26-2021 Tobacco use and exposure Smokeless tobacco non-user [facility] Work Phone: Start: 01-26-2019 End: 05-29-2023 History of Social function [facility] Start: 01-26-2019 End: 05-29-2023 Social connection and isolation panel [facility] Do you belong to any clubs or organizations such as episcopalian groups, unions, fraternal or athletic groups, or school groups? Yes [facility] Are you now , , , , never or living with a partner? [facility] How often to you hav e a drink containing alcohol? Monthly or less [facility] How many standard drinks containing alcohol do you have on a typical day? 1 or 2 [facility] How often do you hav e 6 or more drinks on 1 occasion? Never [facility] How hard is it for y ou to pay for the very basics like food, housing, medical care, and heating Not very hard [facility] Work Phone: Adult Depression Screening Assessment 0 [facility] Do you feel stress - tense, restless, nervous, or anxious, or unable to sleep at night because your mind is troubled all the time - these days [OSQ] Not at all [facility] (I/We) worried wheth er (my/our) food would run out before (I/we) got money to buy more. Never true [facility] Work Phone: Start: 04-17-2020 Gender identity Identifies as female gender (finding) [facility] Start: 04-17-2020 Sexual orientation Heterosexual (yeimi ibarra) [facility] Start: 03-15-2020 Alcoholic beverage intake Current drinker of alcohol (finding) [facility] Start: 09-13-2017 Alcohol Comment [facility] Start: 05-25-2024 End: 06-08-2024 Sex Female (finding) [facility] NEGATED: Highlighted row Not [facility] Medical Equipment Procedure Code Equipment Code Equipment Origin al Text Equipment Identifier Dates [id number] Implant - [id number] Start: 09-14-2010 Comment on above: Description: elio dual lumen cv catheter Goals Date Patient Goal Desired Activity /State Functional Status Date Assessment Result Facility 05-14-2024 Functional status Activity Abili ty Independent [facility] Work Phone: 05-13-2024 Functional status Ambulates;Up ad [facility] Work Phone: 05-29-2020 Are you deaf, or do you have serious difficulty hearing No 05/29/2020 9:30 AM Bere Calhoun RN [facility] 05-29-2020 Are you blind, or do you have serious difficulty seeing, even when wearing glasses No 05/29/2020 9:30 AM Bere Calhoun RN No [facility] 05-29-2020 Do you have serious difficulty walking or climbing stairs No 05/29/2020 9:30 AM Bere Calhoun, PURA No [facility] 05-29-2020 Do you have difficul ty dressing or bathing No 05/29/2020 9:30 AM Bere Calhoun, PURA No [facility] 05-29-2020 Because of a physica l, mental, or emotional condition, do you have difficulty doing errands alone such as visiting a physician's office or shopping No 05/29/2020 9:30 AM Bere Calhoun RN No [facility] Mental Status Date Assessment Result Facility 05-14-2024 [facility] function [facility] Work Phone: 05-29-2020 Because of a physica l, mental, or emotional condition, do you have serious difficulty concentrating, remembering, or making decisions No 05/29/2020 9:30 AM Bere Calhoun RN No [facility] Clinical Notes 03-15-2020 to 07-16-2024 Caren Houser MD - 06/23/2024 1:20 PM Fidencio Conway APRN.ART - 03/06/2024 6:30 PM EST Note Date & Type Note Facility 07-16-2024 Note HNO ID: [id number] Author: ROCIO BARRIENTOS, ? Service: Pharmacy Author Type: Sifting Operator Type: Plan of Care Filed: 07/16/2024 17:56 Note Text: Insurance investigation completed Patient has active prescription insurance: Yes - Patient's insurance is in-network with [facility] Insurance loaded into [place]: Yes Test claim was completed to verify insurance is active: Successful Any questions, please reach out to your medication network coordinator. [facility] 07-16-2024 Note HNO ID: [id number] Author: ROCIO BARRIENTOS, ? Service: Pharmacy Author Type: Sifting Operator Type: Plan of Care Filed: 07/16/2024 17:56 Note Text: PHARMACY BEDSIDE DELIVERY SERVICE Patient Name: Philippe Rg The marked outpatient medications were Filled at: [facility] and delivered to the patient's bedside to PATIENT Medication List START taking these medications fluconazole 150 mg tablet Commonly known as: DIFLUCAN Take 1 tablet by mouth once daily for 5 doses. MEDICATION DELIVERED loperamide 2 mg cap(s) Commonly known as: IMODIUM Take 1 capsule by mouth four times a day as needed for diarrhea. MEDICATION DELIVERED CONTINUE taking these medications ANTACID (SODIUM BICARBONATE) ORAL fludrocortisone 0.1 mg tablet Commonly known as: FLORINEF ivabradine 5 mg tablet Commonly known as: CORLANOR levothyroxine 25 mcg tablet Commonly known as: SYNTHROID TAKE 1 TABLET DAILY (6 A.M.) MAGNESIUM COMPLEX ORAL Multivitamin capsule ondansetron orally disintegrating 4 mg disintegrating tablet Commonly known as: ZOFRAN ODT Take 1 tablet by mouth once daily as needed for nausea/vomiting. potassium chloride SR 10 mEq CR capsule Commonly known as: MICRO-K sodium chloride 1 g Tab TylenoL 325 mg tablet Generic drug: acetaminophen VITAMIN B COMP AND C NO.3 ORAL VITAMIN D3 ORAL You might also be taking other medications not listed above. If you have questions about any of your other medications, talk to the person who prescribed them or your Primary Care Provider. Rocio Barrientos July 16, 2024 4:06 PM [facility] 07-15-2024 Note Borderline elevated. Re-evaluation in 4-6 weeks is recommended if clinically indicated. [facility] Comment on above: Order Comment: Speci men Type: BLOOD SPECIMEN Ordering Facility: [facility] Address: [address] [place] [address] Result Comment: Inte rpretation: <50.0 ug/g: Normal 50.0 ug/g - 120.0 ug/g: Borderline elevated. Re-evaluation in 4-6 weeks is recommended if clinically indicated. >120.0 ug/g: Elevated Performed By: #### 1 [id number], [id number] #### [facility] CLIA [id number] [address] [place], [place] [address]K [address] 07-15-2024 Note HNO ID: [id number] Author: CLAY RESTREPO RDMS Service: Radiology Author Type: Technologist Type: Progress Notes Filed: 07/15/2024 15:09 Note Text: Radiology Service Progress Note PATIENT NAME: Philippe Rg DATE OF SERVICE: July 15, 2024 TIME: 3:09 PM PATIENT IDENTITY VERIFICATION COMPLETED USING TWO (2) IDENTIFIERS: Name and Date of confirmed by patient verbally. FALL SCREENING: Has the patient had 2 falls in the last year or 1 fall with injury or currently using an Ambulatory Assistive Device (Walker, Cane, Wheelchair, Crutches, etc.)? Inpatient: Screened on floor PATIENT GENDER DATA: Assigned female at . status: Unknown status: N/A PATIENT RELEVANT IMPLANT DATA REVIEWED: Not Applicable PATIENT PRESENTS WITH AN IMPLANTABLE OR ATTACHED DEMAND MANAGER: No RADIOLOGY DEPARTMENT: Ultrasound PERIPHERAL IV DATA: Not applicable SIGNED BY: Clay Restrepo RDMS July 15, 2024 3:09 PM [facility] 07-15-2024 Note HNO ID: [id number] Author: LESLY GONZÁLES RN Service: Care Management Author Type: Registered Nurse Type: Care Mgt Initial Assessment Filed: 07/15/2024 14:12 Note Text: CARE MANAGEMENT: ASSESSMENT AND DISCHARGE PLAN SERVICE DATE: July 15, 2024 SERVICE TIME: 2:11 PM PCP: No primary care provider on file. Primary Contact: Extended Emergency Contact Information Primary Emergency Contact: Robby Rg Address: [id number] [place] [address] Mobile Relation: Spouse Admission Status: Inpatient Insurance Provider: [facility] CHOICE PLUS Discharge Planning requested by: Per Department Practice Potential Transition Plans Home Advance Directives Current Advance Directive: None Wound Care Specialist Attempted to Assist with AD Completion: No Unable to Assist Due To:: Other: See Comment (s/o) Current Living Arrangements and Support Lives with: Spouse/significant other Type of Residence: Private Residence (House) Support: Family members How do you manage to accomplish the following: Independent: Ambulation, Transportation to appointments/community, Bathe/Shower, Dress, Meals/Meal Prep, Going to the bathroom, Medication Management Current Services/Equipment Current Post-Acute Service(s): None Discharge Planning Patient Goal(s): Be able to go home, General wellness [place] of Choice Explained: [place] of Choice Given: No Reason Not Given: No placements necessary Are you interested in bedside delivery of your medications? No Discharge Planning Participant(s): Patient Patient/Family Comments: Caregiver Assessment: Caregiver is ready, willing and able to meet the patient's needs as recommended by the inter-professional team: No Caregiver needed Transport at Discharge: Transportation Arrangements: Car Destination: home Needs Prior to Discharge: Needs Prior to Discharge: To Be Determined Post-Acute Discharge Plan: [employer] Acupuncturist Anticipated Medical Plan of Care: TBD Medical needs prior to discharge: medical stability DISCHARGE PLAN Discharge plan discussed with: pt, primary team Anticipated Discharge Plan: Home with self care Anticipated Discharge Date: TBD DISCHARGE TRANSPORTATION Patient has been informed that discharge time is 12pm on day of discharge. Discharge Transportation: spouse Discharge Barriers: no PCP Chart reviewed. PT/OT consults not ordered currently. Pt has a 6-click score of 24. Pt on Room Air. Pt is on IV rocephin. No ID note nor CoPat written to date. Pts spouse/family will provide dc transport. Pt screened out by CM. No skilled needs noted at this time. CM to re-screen on 07/16 for possible CoPat needs, unless pt to dc prior. CM will continue to follow. This patient has been screened for Care Management Transitional Planning Services. At this time, it does not appear this patient will require transition planning services. Should this change, and the patient require transition planning services during this admission, please contact Case Management. *Please note* New Standard of Care: The dc lounge is a designated area for dc'd pts who are waiting for their ride home. This area is best suited for pts who can sit for an extended period and require minimal ambulatory assistance. Medications and equipment, such as O2, can be delivered to the pt while waiting in the dc lounge, provided the delivering service is aware of pts location. Pts will have the ability to order a free lunch while waiting, if applicable. An inverform machine operator is also available to pts in the dc lounge. The lounge is not suitable for patients who require medication, isolation or treatment between discharge and pickup as well as those individuals with disruptive behavior or bladder/bowel incontinence. Dc Lounge Hours: M-F [phone]; for a weekend dc or dc after-hours Red Coat Attendants are available to assist. If your pt is eligible to utilize the dc lounge, please make pt aware that waiting in the dc lounge is the new standard of care at [facility] and place the order prior to dc. SIGNATURE: Lesly Gonzáles RN PATIENT NAME: Philippe Rg DATE: July 15, 2024 TIME: 2:11 PM [facility] 07-15-2024 Note HNO ID: [id number] Author: KATLYN NORTON RPh Service: Pharmacy Author Type: Pharmacist Type: Plan of Care Filed: 07/15/2024 13:12 Note Text: PHARMACY MEDICATION REVIEW Patient Name: Philippe Rg : 1985 The following medications were updated within the [facility] medication list: Medications ADDED to [facility] medication list Salt tabs, sodium bicarbonate, magnesium complex Medications CHANGED on [facility] medication list potassium chloride Medications REMOVED from [facility] medication list prednisone Additional comments: Patient takes multiple OTC vitamins The below information represents the best possible medication history: Yes Medication history completed by: Pharmacist: Katlyn Norton RPh Source of history: Patient: Reliability of source: Appears reliable, clearly identified: Medication name, Medication dose, and Medication frequency and Pharmacy records: Medication nonadherence identified: No barriers noted Reconciliation completed: Yes Completed by: Katlyn Norton RPh Medications intentionally held at admission: salt tabs, sodium bicarbonate, magnesium Patient interested in Bedside Delivery Services or using OP Pharmacy at discharge? Unable to assess Preferred outpatient pharmacy: [id number] [place] [address] - [address] [phone] [id number] [place] [address] [address] [address] [phone] [id number] Allergies: Adhesive Tape (Deja* Rash Comment[facility] Adhesive- (most adhesive tape causes rash) tolerates versaderm in IV securement kit Gluten Other: See Comments Comment:Rash, nausea, GI symptoms Humira [Adalimumab] Intolerance Iron Intolerance Comment:per pt- can take, but only very small dose. (IV Iron only causes issues.) Remicade [Inflixima* Shortness of Breath Vancomycin Rash Comment:Per Dr. Kamara Add Vanco to Allergy List - Rash Prior to Admission Medications Prescriptions Last Dose Informant Patient Reported? Taking? ANTACID, SODIUM BICARBONATE, ORAL Yes No Sig: Take 1 teaspoonful by mouth three times a day. Multivitamin capsule Yes No Sig: Take 1 capsule by mouth once daily. acetaminophen (TYLENOL) 325 mg tablet Unknown Yes No Sig: Take 650 mg by mouth every 4 hours as needed for pain. cholecalciferol, vitamin D3, (VITAMIN D3 ORAL) 07/14/2024 Yes Yes Sig: Take 2,000 Units by mouth once daily. fludrocortisone (FLORINEF) 0.1 mg tablet 07/15/2024 at 1:30 AM Yes Yes Sig: Take 1 tablet by mouth every 12 hours. ivabradine (CORLANOR) 5 mg tablet 07/15/2024 at 1:30 AM Yes Yes Sig: Taking 1 tablet in the morning and 1/2 tablet at night levothyroxine (SYNTHROID) 25 mcg tablet 07/14/2024 Morning No Yes Sig: TAKE 1 TABLET DAILY (6 A.M.) magnesium carb,citrate,oxide (MAGNESIUM COMPLEX ORAL) Yes No Sig: Take 1 g by mouth once daily. ondansetron orally disintegrating (ZOFRAN ODT) 4 mg disintegrating tablet No No Sig: Take 1 tablet by mouth once daily as needed for nausea/vomiting. potassium chloride SR (MICRO-K) 10 mEq CR capsule Yes No Sig: Take 10 mEq by mouth once daily as needed. sodium chloride 1 g tab Yes No Sig: Take 2 g by mouth three times a day. vitamin B complex vit C no.3 (VITAMIN B COMP AND C NO.3 ORAL) Yes No Sig: Take by mouth once daily. Facility-Administered Medications: None Katlyn Norton RPh 07/15/2024 [facility] 06-23-2024 History of Present illness Narrative Images from the original note were not included. Obstetrics and Gynecology [place] Annual Exam Subjective Recording using Tir[employer] software for draft documentation of the visit was discussed with the patient/authorized outreach representative; all questions welcomed and answered. Patient/authorized outreach representative agreed to proceed Acid Cleaner: declined CHIEF COMPLAINT: Annual and pain from ovarian cyst HPI: The patient is a 38-year-old female with a history of Crohn's disease and POTS, presenting for an annual exam. The patient reports worsening pain associated with a known cyst on the left side, particularly severe for a day following menstruation, accompanied by cramping and nausea. The pain gradually subsides over a few days. She notes that the pain has been progressively worsening and is considering the possibility of surgery. She has a history of extensive surgeries, including a cholecystectomy that was not performed laparoscopically due to anatomical challenges. She denies any new GI issues. She also experiences dyspareunia when the cyst is impacted during intercourse, though it does not prevent sexual activity. She denies any changes in urinary habits, dysuria, frequency, urgency, or vaginal concerns such as itching, burning, odors, or bleeding with intercourse. She reports regular menstrual cycles every 25-28 days, with no heavy bleeding or hot flashes. She is currently menstruating, having started on Sunday. She denies any breast changes, nipple discharge, pain, or masses and has no family history of breast cancer. The patient has a history of POTS, with episodes of hypotension causing her to be unable to drive. She is currently taking ivabradine, which she reports is effective. She previously tried Xanax and Ativan, which were ineffective and exacerbated hypotension. She is scheduled to start an immunosuppressant. She has two children, ages 3 and 5, and her partner has had a vasectomy. She has half of her thyroid remaining. HISTORY: OB History Gravida2 Para0 Term0 Preterm0 AB2 Living0 SAB2 IAB0 Ectopic0 Multiple0 Live Births0 Comment: Surrogate-2 child Manager Outpatient History LMP: 06/20/2024 (Exact Date), Having periods Age at Menarche: Age at First : Age at Menopause: Manager Outpatient History Comments: Sexual Activity: Yes; Male Contraception: Vasectomy PAST MEDICAL HISTORY Diagnosis Date Anemia Attention to ileostomy (HCC) 04/04/2012 Celiac disease (HCC) Cholelithiasis 03/2016 CRBSI (catheter-related bloodstream infection) 09/07/2010, 08/04/2010 (yeast/GPC, lactobacillus casei) Crohn's disease (HCC) Dx age 12 Dr. Maier-GI Hyponatremia Non-traumatic compression fracture of vertebral column (HCC) 05/14/2012 Nontoxic single thyroid nodule 04/29/2020 Palpitations takes propanolol as needed, when HR >100. None currently -- medicine induced. Thyroid cancer (HCC) Underweight Unspecified nutritional deficiency 10/19/2010 Stop HPN Vitamin D insufficiency PAST SURGICAL HISTORY Procedure Laterality Date CHOLECYSTECTOMY 04/28/2016 COLECTOMY TOTAL WO ANAST 10/30/2003 resection of terminal ileum (had 10 cm of TI disease) and colon from cecum to proximal descending colon w/ end-to-side anastomosis ILEOSTOMY 06/26/2014 MIDLINE INSERTION/CONSULT 07/13/2013 MIDLINE INSERTION/CONSULT 06/29/2014 PAST SURGICAL HISTORY OF 10/24/2003 Open drainage of abdominal abscess PAST SURGICAL HISTORY OF 12/2006 dilation of anal stricture and anal fistulectomy. Colonoscopy showed anal sticture, inflamm in rectum, and tight stricture at 40 cm that could not be traversed PAST SURGICAL HISTORY OF 01/2007 resection of 6 cm of TI (short stricture in this area) and ICA including strictured area of colon; Irasema pouch, end ileostomy PAST SURGICAL HISTORY OF 03/2007 dilation of anorectal stricture PAST SURGICAL HISTORY OF 04/28/2010 EUA, ileoscopy, flex sig and anastamotic dilatation PAST SURGICAL HISTORY OF 06/02/2010 takedown fistula, SBR, partial colectomy with ileosigmoid anastamosis, diverting jejunostomy PAST SURGICAL HISTORY OF 05/2010 Cystoscopy, bilateral ureteral stent insertion PICC LINE INSERT/CONSULT 05/14/2012 THYROIDECTOMY TOTAL/COMPLETE N/A 05/28/2020 Partial FAMILY HISTORY Problem Relation Age of Onset Cancer Maternal Grandfather multiple myeloma Cancer Paternal Grandfather multiple myeloma Colon Cancer Paternal Grandmother 78 other (No uterus cancer) Other Hypertension Father Ovarian cancer No Family History Breast Cancer No Family History Social History Tobacco Use Smoking status: Never Smokeless tobacco: Never Vaping Use Vaping status: Never Used Substance Use Topics Alcohol use: Not Currently Comment: very rarely, none for one year 05/25/20 Drug use: Never Comment: ria matthew for drug/alcohol abuse in the past. Current Outpatient Medications Medication Sig ivabradine (CORLANOR) 5 mg tablet Taking 1 tablet in the morning and 1/2 tablet at night fludrocortisone (FLORINEF) 0.1 mg tablet Take 1 tablet by mouth every 12 hours. acetaminophen (TYLENOL) 325 mg tablet Take 650 mg by mouth every 4 hours as needed for pain. vitamin B complex vit C no.3 (VITAMIN B COMP AND C NO.3 ORAL) Take by mouth once daily. levothyroxine (SYNTHROID) 25 mcg tablet TAKE 1 TABLET DAILY (6 A.M.) cholecalciferol, vitamin D3, (VITAMIN D3 ORAL) Take by mouth once daily. ondansetron orally disintegrating (ZOFRAN ODT) 4 mg disintegrating tablet Take 1 tablet by mouth once daily as needed for nausea/vomiting. potassium chloride (KLOR-CON 10) 10 mEq tablet Take 1 tablet by mouth once daily. Multivitamin capsule Take 1 capsule by mouth once daily. predniSONE (DELTASONE) 5 mg tablet Take 3 tablets po every day (Patient not taking: Reported on 06/23/2024) No current facility-administered medications for this visit. ALLERGIES Allergen Reactions Adhesive Tape (Deja* Rash Convatec waffer tape collar Adhesive- (most adhesive tape causes rash) tolerates versaderm in IV securement kit Humira [Adalimumab] Intolerance Iron Intolerance per pt- can take, but only very small dose. (IV Iron only causes issues.) Remicade [Inflixima* Shortness of Breath Vancomycin Rash Per Dr. Kamara Add Vanco to Allergy List - Rash Screening tools reviewed and discussed with patient-BARKER PEELER history questions. Please see Patient Entered Data. REVIEW OF SYSTEMS: Constitutional: (-) night sweats Cardiovascular: (+) palpitations, (+) hypotension episodes Gastrointestinal: (+) abdominal cramping, (+) nausea Genitourinary: (-) dysuria, (-) urinary frequency, (-) urinary urgency, (+) dyspareunia, (-) vaginal itching, (-) vaginal discharge, (-) vaginal odor, (-) postcoital bleeding, (-) heavy menstrual bleeding Endocrine: (-) hot flashes Objective SENSITIVE EXAM: The sensitive examination was discussed with the Patient or Patient's Authorized Farm[employer]. As applicable, any other physician, advance practice provider, medical student, or other health professional student that will be observing or involved in the sensitive examination for educational or training purposes was discussed with the Patient or Authorized Farmworker Livestock. The Patient or Authorized Farmworker Livestock has agreed to proceed with the sensitive examination. (Sensitive examination includes inspection and/or palpation of the breasts, pelvis, prostate and anorectal regions). PHYSICAL EXAM: BP 88/56 Ht 4' 9 (1.45m) Wt 77 lb (34.9kg) LMP 06/20/2024 BMI 16.66 kg/(m^2). General: No acute distress. HEENT: no lymphadenopathy Breast: No palpable masses, no nipple discharge. symmetrical . no skin changes Abd: No palpable masses, no tenderness. ostoomy in place. : Cervix without masses, cervical tissue normal. normal discharge. bimanual exam: normal uterus, no masses. mild tenderness to palpation on left adnexa- cyst not palpable. Assessment & Plan ASSESSMENT AND PLAN: 1. Encounter for gynecological examination (general) (routine) with abnormal findings (Z01.411) Patient reports worsening pain associated with a left ovarian cyst, particularly post-menstruation. No other new gynecological concerns reported. - Performed pelvic exam; no masses on the cervix, tissue appears normal. - Discussed potential for cyst rupture or torsion and advised seeking immediate care at a tertiary center if severe pain, nausea, or vomiting occurs. - Recommended follow-up ultrasound to monitor the cyst if symptoms worsen. - Discussed referral to a minimally invasive surgeon if surgical intervention becomes necessary. 2. Encounter for screening for malignant neoplasm of cervix (Z12.4) Special screening examination for human papillomavirus (HPV) (Z11.51) Pap smear due to upcoming immunosuppressant therapy. - Performed Pap smear; results expected in a few weeks. - Advised patient on the importance of regular screenings, especially when on immunosuppressants. 3. Left ovarian cyst (N83.202) Patient reports worsening pain associated with a left ovarian cyst, particularly post-menstruation. No other new gynecological concerns reported. - Discussed potential for cyst rupture or torsion and advised seeking immediate care at a tertiary center if severe pain, nausea, or vomiting occurs. - Recommended follow-up ultrasound to monitor the cyst if symptoms worsen. - Discussed referral to a minimally invasive surgeon if surgical intervention becomes necessary. Caren Ospina MD documented in this encounter [facility] 06-23-2024 Note HNO ID: [id number] Author: CAREN HOUSER MD Service: ? Author Type: Physician Type: Progress Notes Filed: 06/23/2024 14:16 Note Text: Obstetrics and Gynecology [place] Annual Exam Subjective Recording using Tir[employer] software for draft documentation of the visit was discussed with the patient/authorized outreach representative; all questions welcomed and answered. Patient/authorized outreach representative agreed to proceed Acid Cleaner: declined CHIEF COMPLAINT: Annual and pain from ovarian cyst HPI: The patient is a 38-year-old female with a history of Crohn's disease and POTS, presenting for an annual exam. The patient reports worsening pain associated with a known cyst on the left side, particularly severe for a day following menstruation, accompanied by cramping and nausea. The pain gradually subsides over a few days. She notes that the pain has been progressively worsening and is considering the possibility of surgery. She has a history of extensive surgeries, including a cholecystectomy that was not performed laparoscopically due to anatomical challenges. She denies any new GI issues. She also experiences dyspareunia when the cyst is impacted during intercourse, though it does not prevent sexual activity. She denies any changes in urinary habits, dysuria, frequency, urgency, or vaginal concerns such as itching, burning, odors, or bleeding with intercourse. She reports regular menstrual cycles every 25-28 days, with no heavy bleeding or hot flashes. She is currently menstruating, having started on Sunday. She denies any breast changes, nipple discharge, pain, or masses and has no family history of breast cancer. The patient has a history of POTS, with episodes of hypotension causing her to be unable to drive. She is currently taking ivabradine, which she reports is effective. She previously tried Xanax and Ativan, which were ineffective and exacerbated hypotension. She is scheduled to start an immunosuppressant. She has two children, ages 3 and 5, and her partner has had a vasectomy. She has half of her thyroid remaining. HISTORY: OB History Gravida2 Para0 Term0 Preterm0 AB2 Living0 SAB2 IAB0 Ectopic0 Multiple0 Live Births0 Comment: Surrogate-2 child Manager Outpatient History LMP: 06/20/2024 (Exact Date), Having periods Age at Menarche: Age at First : Age at Menopause: Manager Outpatient History Comments: Sexual Activity: Yes; Male Contraception: Vasectomy PAST MEDICAL HISTORY Diagnosis Date Anemia Attention to ileostomy (HCC) 04/04/2012 Celiac disease (HCC) Cholelithiasis 03/2016 CRBSI (catheter-related bloodstream infection) 09/07/2010, 08/04/2010 (yeast/GPC, lactobacillus casei) Crohn's disease (HCC) Dx age 12 Dr. Maier-GI Hyponatremia Non-traumatic compression fracture of vertebral column (HCC) 05/14/2012 Nontoxic single thyroid nodule 04/29/2020 Palpitations takes propanolol as needed, when HR >100. None currently -- medicine induced. Thyroid cancer (HCC) Underweight Unspecified nutritional deficiency 10/19/2010 Stop HPN Vitamin D insufficiency PAST SURGICAL HISTORY Procedure Laterality Date CHOLECYSTECTOMY 04/28/2016 COLECTOMY TOTAL WO ANAST 10/30/2003 resection of terminal ileum (had 10 cm of TI disease) and colon from cecum to proximal descending colon w/ end-to-side anastomosis ILEOSTOMY 06/26/2014 MIDLINE INSERTION/CONSULT 07/13/2013 MIDLINE INSERTION/CONSULT 06/29/2014 PAST SURGICAL HISTORY OF 10/24/2003 Open drainage of abdominal abscess PAST SURGICAL HISTORY OF 12/2006 dilation of anal stricture and anal fistulectomy. Colonoscopy showed anal sticture, inflamm in rectum, and tight stricture at 40 cm that could not be traversed PAST SURGICAL HISTORY OF 01/2007 resection of 6 cm of TI (short stricture in this area) and ICA including strictured area of colon; Irasema pouch, end ileostomy PAST SURGICAL HISTORY OF 03/2007 dilation of anorectal stricture PAST SURGICAL HISTORY OF 04/28/2010 EUA, ileoscopy, flex sig and anastamotic dilatation PAST SURGICAL HISTORY OF 06/02/2010 takedown fistula, SBR, partial colectomy with ileosigmoid anastamosis, diverting jejunostomy PAST SURGICAL HISTORY OF 05/2010 Cystoscopy, bilateral ureteral stent insertion PICC LINE INSERT/CONSULT 05/14/2012 THYROIDECTOMY TOTAL/COMPLETE N/A 05/28/2020 Partial FAMILY HISTORY Problem Relation Age of Onset Cancer Maternal Grandfather multiple myeloma Cancer Paternal Grandfather multiple myeloma Colon Cancer Paternal Grandmother 78 other (No uterus cancer) Other Hypertension Father Ovarian cancer No Family History Breast Cancer No Family History Social History Tobacco Use Smoking status: Never Smokeless tobacco: Never Vaping Use Vaping status: Never Used Substance Use Topics Alcohol use: Not Currently Comment: very rarely, none for one year 05/25/20 Drug use: Never Comment: ria matthew for drug/alcohol abu (more content not included)... [facility] 05-14-2024 Note [facility] 05-13-2024 Note [facility] 03-06-2024 Note HNO ID: [id number] Author: FIDENCIO MCPHERSON APRN.MANAGER [employer]EDIT [employer]LECTIONS Service: ? Author Type: Nurse Practitioner Type: Progress Notes Filed: 03/06/2024 18:32 Note Text: Nontoxic-appearing female presents urgent care chief complaint elevated heart rate. Duration of symptoms ongoing for the last week. States was recently diagnosed with POTS. Was supposed to be on beta-jared. Unable to get a hold of PCP today. Heart rates been 140s and 150s. Is slightly fatigued feeling. I instructed patient we are unable to prescribe medications such as beta-blockers through the urgent care. Referred patient to ED. Verbalized understand agrees plan of care. Fidencio Mcpherson APRN.MANAGER CREDIT COLLECTIONS [facility] 03-06-2024 History of Present illness Narrative Nontoxic-appearing female presents urgent care chief complaint elevated heart rate. Duration of symptoms ongoing for the last week. States was recently diagnosed with POTS. Was supposed to be on beta-jared. Unable to get a hold of PCP today. Heart rates been 140s and 150s. Is slightly fatigued feeling. I instructed patient we are unable to prescribe medications such as beta-blockers through the urgent care. Referred patient to ED. Verbalized understand agrees plan of care. Fidencio Mcpherson APRN.MANAGER [employer]EDIT [employer]LECTIONS documented in this encounter [facility] 02-21-2024 Evaluation note Diagnosis Onset Date Resolution Acute upper respiratory infection resolved February 20 1:30pm Celiac disease acute February 102023 1:13pm Weight loss acute February 1:13pm Crohn's disease chronic March 03, 2024 1:13pm Low blood pressure chronic 2024 8:49am Postural orthostatic tachycardia syndrome [POTS] inactive March 21 8:49am Postural orthostatic tachycardia syndrome [POTS] inactive March 26 2:52pm History of thyroid cancer deleted March 26 2:52pm CKD (chronic kidney disease) chronic April 10 8:48am Crohn's disease chronic March 142024 8:48am Low blood pressure chronic 2024 8:48am POTS (postural orthostatic tachycardia syndrome) chronic April 10 8:48am Celiac disease acute May 13, 2024 4:55pm Hyponatremia acute May 13 025 4:55pm CKD (chronic kidney disease) chronic May 13, 2024 4:55pm Crohn's disease chronic May 4:55pm POTS (postural orthostatic tachycardia syndrome) chronic May 13, 2024 4:55pm Metabolic acidosis inactive May 13, 2024 4:55pm Pharyngitis inactive May 13 4:55pm Crohn's disease acute May 8:52am Chronic diarrhea chronic May 8:52am [facility] Work Phone: 1(556) 218-368412-12-2024 Evaluation note* Diagnosis Onset Date Resolution Status Admit Date Acute upper respiratory infection resolved Jeremiah 12th, 2 024 1:30pm Celiac disease acute February 102023 1:13pm Weight loss acute February 1:13pm Crohn's disease chronic March 03, 2024 1:13pm Low blood pressure chronic 2024 8:49am Postural orthostatic tachycardia syndrome [POTS] inactive 2024 8:49am Postural orthostatic tachycardia syndrome [POTS] inactive 2024 2:52pm History of thyroid cancer deleted March 26, 2024 2:52pm CKD (chronic kidney disease) chronic April 10, 2024 8:48am Crohn's disease chronic March 142024 8:48am Low blood pressure chronic 2024 8:48am POTS (postural orthostatic tachycardia syndrome) chronic April 102024 8:48am Celiac disease acute May 13, 2024 4:55pm Hyponatremia acute May 13 4:55pm CKD (chronic kidney disease) chronic May 13, 2024 4:55pm Crohn's disease chronic May 4:55pm POTS (postural orthostatic tachycardia syndrome) chronic May 13, 2024 4:55pm Metabolic acidosis inactive May 13, 2024 4:55pm Pharyngitis inactive May 13 4:55pm Crohn's disease acute May 8:52am Chronic diarrhea chronic May 8:52am Electrolyte abnormality acute 2024 7:47am Chronic diarrhea chronic May 282024 7:47am POTS (postural orthostatic tachycardia syndrome) chronic May 7:47am Adrenal insufficiency chronic May 9:30am Low blood pressure chronic June 03, 2024 9:30am Osteoporosis chronic June 03, 2024 9:30am Thyroid cancer may 9:30am [facility] Work Phone: 1(119) 594-421509-03-2024 NoteHNO ID: [id number] Author: ALETA VELZO MD Service: ? 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 Encounter Diagnosis ICD-10-CM 1. Ovarian cyst, left N83.202 Please see report under imaging tab. 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 Encounter Diagnosis ICD-10-CM 1. Ovarian cyst, left N83.202 Please see report under imaging tab. Aleta Veloz MD November 13, 2023 11:06 AM documented in this encounterPark[facility]29-2024 NoteHNO ID: [id number] Author: PHILIPPE WALLACE APRN.MA[employer]GER [employer] Service: ? Author Type: Nurse Practitioner Type: Progress Notes Filed: 11/08/2023 16:17 Note Text: Acid Cleaner offered: Patient declines. Philippe gR is a 37 year old female who presents for problem visit follow up from transvaginal ultrasound done at primary care, [facility]. HPI: Went to ER as she needed fluids for Crohn's complications. A CT was performed which showed: 1. No acute abdominal pelvic abnormality. 2. Simple appearing fluid collection measuring 2.8 x 2.8 x 4.5 cm with somewhat angular margins in the region of the left adnexa impression. There was a similar smaller collection on the prior exam. Considerations include seroma, lymphocele, ovarian cystic lesion, and hydrosalpinx. Consider pelvic ultrasound for further evaluation. 3. Nonobstructing calculus measuring up to 6 mm right renal lower pole collecting system. 4. 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 Her PCP then ordered a pelvic ultrasound: FINDINGS: The uterus is anteverted and is in a midline position. The uterus measures 6.4 x 3.9 x 2.7 cm. Normal uterine cervix. The endometrium measures 6 mm in thickness, and is heterogeneous (striated). There is no demonstrated endometrial mass. There is no demonstrated myometrial mass. I.U.D. - The patient does not have an I.U.D. The right ovary is visualized. The right ovary measures 3.7 x 2.9 x 2.1 cm. There is a 2.9 cm cyst. 6 There is no visualized right adnexal mass or complex lesion. There is normal arterial and normal venous vascularity. The left ovary is visualized. The left ovary measures 6.1 x 3.7 x 3.7 cm. There is a 5.0 cm complex cystic mass. Recommend follow-up in 1 or 2 menstrual periods There is no visualized left adnexal mass or complex lesion. There is normal arterial and normal venous vascularity. There is no fluid in the cul-de-sac. US/Pelvic w/ Transvaginal IMPRESSION: Bilateral ovarian/adnexal cystic masses. Largest is on the left measuring 5 cm and is complex. Recommend follow-up in one or 2 menstrual periods. She is now having pain to the left lower side. OB History T0 L0 SAB2 IAB0 Ectopic0 Multiple0 Live Births0 Comment: Surrogate-1 child Manager Outpatient History LMP: 05/28/2023, Having periods Age at Menarche: Age at First : Age at Menopause: Manager Outpatient History Comments: Sexual Activity: Yes; Male Contraception: None PAST MEDICAL HISTORY No date: Anemia 04/04/2012: Attention to ileostomy ([facility]) 03/2016: Cholelithiasis 09/07/2010, 08/04/2010: CRBSI (catheter-related bloodstream infection) Comment: (yeast/GPC, lactobacillus casei) Dx age 12: Crohn's disease (HCC) Comment: Dr. OttoGI No date: Hyponatremia 05/14/2012: Non-traumatic compression fracture of vertebral column ([facility]) 04/29/2020: Nontoxic single thyroid nodule No date: Palpitations Comment: takes propanolol as needed, when HR >100. None currently -- medicine induced. No date: Underweight 10/19/10: Unspecified nutritional deficiency Comment: Stop HPN No date: Vitamin D insufficiency PAST SURGICAL HISTORY 04/28/2016: CHOLECYSTECTOMY Comment: 10/30/2003: COLECTOMY TOTAL WO ANAST Comment: resection of terminal ileum (had 10 cm of TI disease) and colon from cecum to proximal descending colon w/ end-to-side anastomosis 06/26/2014: ILEOSTOMY 07/13/2013: MIDLINE INSERTION/CONSULT Comment: 06/29/2014: MIDLINE INSERTION/CONSULT Comment: 10/24/2003: PAST SURGICAL HISTORY OF Comment: Open drainage of abdominal abscess 12/2006: PAST SURGICAL HISTORY OF Comment: dilation of anal stricture and anal fistulectomy. Colonoscopy showed anal sticture, inflamm in rectum, and tight stricture at 40 cm that could not be traversed 01/2007: PAST SURGICAL HISTORY OF Comment: resection of 6 cm of TI (short stricture in this area) and ICA including strictured area of colon; Irasema pouch, end ileostomy 03/2007: PAST SURGICAL HISTORY OF Comment: dilation of anorectal stricture 04/28/2010: PAST SURGICAL HISTORY OF Comment: EUA, ileoscopy, flex sig and anastamotic dilatation 06/02/2010: PAST SURGICAL HISTORY OF Comment: takedown fistula, SBR, partial colectomy with ileosigmoid anastamosis, diverting jejunostomy 05/2010: PAST SURGICAL HISTORY OF Comment: Cystoscopy, bilateral ureteral stent insertion 05/14/2012: PICC LINE INSERT/CONSULT Comment: 05/28/2020: THYROIDECTOMY TOTAL/COMPLETE; N/A Comment: Partial FAMILY HISTORY Problem Relation Age of Onset Cancer Maternal Grandfather multiple myeloma Cancer Paternal Grandfather multiple myeloma Colon Cancer Paternal Grandmother 78 other (No uterus cancer) Other Hypertension Father Ovarian cancer No Family History Breast Cancer No Family History Social History Tobacco Use Smoking status: Never Smokeless tobacco: (more content not included)...[facility] 11-08-2023 History of Present illness Narrative* Philippe Wallace, MARJORIE.[facility] - 11/08/2023 3:00 PM EDT Acid Cleaner offered: Patient declines. Philippe K Yaneli is a 37 year old female who presents for problem visit follow up from transvaginal ultrasound done at primary care, [facility]. HPI: Went to ER as she needed fluids for Crohn's complications. A CT was performed which showed: 1. No acute abdominal pelvic abnormality. 2. Simple appearing fluid collection measuring 2.8 x 2.8 x 4.5 cm with somewhat angular margins in the region of the left adnexa impression. There was a similar smaller collection on the prior exam. Considerations include seroma, lymphocele, ovarian cystic lesion, and hydrosalpinx. Consider pelvic ultrasound for further evaluation. 3. Nonobstructing calculus measuring up to 6 mm right renal lower pole collecting system. 4. 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 Her PCP then ordered a pelvic ultrasound: FINDINGS: The uterus is anteverted and is in a midline position. The uterus measures 6.4 x 3.9 x 2.7 cm. Normal uterine cervix. The endometrium measures 6 mm in thickness, and is heterogeneous (striated). There is no demonstrated endometrial mass. There is no demonstrated myometrial mass. I.U.D. - The patient does not have an I.U.D. The right ovary is visualized. The right ovary measures 3.7 x 2.9 x 2.1 cm. There is a 2.9 cm cyst. 6 There is no visualized right adnexal mass or complex lesion. There is normal arterial and normal venous vascularity. The left ovary is visualized. The left ovary measures 6.1 x 3.7 x 3.7 cm. There is a 5.0 cm complex cystic mass. Recommend follow-up in 1 or 2 menstrual periods There is no visualized left adnexal mass or complex lesion. There is normal arterial and normal venous vascularity. There is no fluid in the cul-de-sac. US/Pelvic w/ Transvaginal IMPRESSION: Bilateral ovarian/adnexal cystic masses. Largest is on the left measuring 5 cm and is complex. Recommend follow-up in one or 2 menstrual periods. She is now having pain to the left lower side. OB History T0 L0 SAB2 IAB0 Ectopic0 Multiple0 Live Births0 Comment: Surrogate-1 child Manager Outpatient History LMP: 05/28/2023, Having periods Age at Menarche: Age at First : Age at Menopause: Manager Outpatient History Comments: Sexual Activity: Yes; Male Contraception: None PAST MEDICAL HISTORY No date: Anemia 04/04/2012: Attention to ileostomy (HCC) 03/2016: Cholelithiasis 09/07/2010, 08/04/2010: CRBSI (catheter-related bloodstream infection) Comment: (yeast/GPC, lactobacillus casei) Dx age 12: Crohn's disease (HCC) Comment: Dr. Maier-GI No date: Hyponatremia 05/14/2012: Non-traumatic compression fracture of vertebral column (HCC) 04/29/2020: Nontoxic single thyroid nodule No date: Palpitations Comment: takes propanolol as needed, when HR >100. None currently -- medicine induced. No date: Underweight 10/19/10: Unspecified nutritional deficiency Comment: Stop HPN No date: Vitamin D insufficiency PAST SURGICAL HISTORY 04/28/2016: CHOLECYSTECTOMY Comment: 10/30/2003: COLECTOMY TOTAL WO ANAST Comment: resection of terminal ileum (had 10 cm of TI disease) and colon from cecum to proximal descending colon w/ end-to-side anastomosis 06/26/2014: ILEOSTOMY 07/13/2013: MIDLINE INSERTION/CONSULT Comment: 06/29/2014: MIDLINE INSERTION/CONSULT Comment: 10/24/2003: PAST SURGICAL HISTORY OF Comment: Open drainage of abdominal abscess 12/2006: PAST SURGICAL HISTORY OF Comment: dilation of anal stricture and anal fistulectomy. Colonoscopy showed anal sticture, inflamm in rectum, and tight stricture at 40 cm that could not be traversed 01/2007: PAST SURGICAL HISTORY OF Comment: resection of 6 cm of TI (short stricture in this area) and ICA including strictured area of colon; Irasema pouch, end ileostomy 03/2007: PAST SURGICAL HISTORY OF Comment: dilation of anorectal stricture 04/28/2010: PAST SURGICAL HISTORY OF Comment: EUA, ileoscopy, flex sig and anastamotic dilatation 06/02/2010: PAST SURGICAL HISTORY OF Comment: takedown fistula, SBR, partial colectomy with ileosigmoid anastamosis, diverting jejunostomy 05/2010: PAST SURGICAL HISTORY OF Comment: Cystoscopy, bilateral ureteral stent insertion 05/14/2012: PICC LINE INSERT/CONSULT Comment: 05/28/2020: THYROIDECTOMY TOTAL/COMPLETE; N/A Comment: Partial FAMILY HISTORY Problem Relation Age of Onset Cancer Maternal Grandfather multiple myeloma Cancer Paternal Grandfather multiple myeloma Colon Cancer Paternal Grandmother 78 other (No uterus cancer) Other Hypertension Father Ovarian cancer No Family History Breast Cancer No Family History Social History Tobacco Use Smoking status: Never Smokeless tobacco: Never Vaping Use Vaping status: Never Used Substance Use Topics Alcohol use: Not Currently Comment: very rarely, none for one year 05/25/20 Drug use: No Comment: ria matthew for drug/alcohol abuse in the past. Current Outpatient Medications Medication Sig vitamin B complex vit C no.3 (VITAMIN B COMP AND C NO.3 ORAL) Take by mouth. clobetasol (TEMOVATE) 0.05 % ointment Apply thin layer to affected area once a day x 4wks, then every other day for 4 wks, then twice a day for 4 weeks then PRN for symptoms levothyroxine (SYNTHROID) 25 mcg tablet TAKE 1 TABLET DAILY (6 A.M.) cholecalciferol, vitamin D3, (VITAMIN D3 ORAL) Take by mouth. ondansetron orally disintegrating (ZOFRAN ODT) 4 mg disintegrating tablet Take 1 tablet by mouth once daily as needed for nausea/vomiting. predniSONE (DELTASONE) 5 mg tablet Take 3 tablets po every day (Patient not taking: Reported on 09/26/2021 ) potassium chloride (KLOR-CON 10) 10 mEq tablet Take 1 tablet by mouth once daily. Multivitamin capsule Take 1 capsule by mouth once daily. No current facility-administered medications for this visit. Allergies As of Date: 11/08/2023 Allergen Noted Reaction ADHESIVE TAPE (ROSINS) 04/28/2010 Rash HUMIRA [ADALIMUMAB] 01/10/2010 Intolerance IRON 03/07/2012 Intolerance REMICADE [INFLIXIMAB] 01/10/2010 Shortness of Breath VANCOMYCIN 09/07/2010 Rash Fully Assessed 05/29/2023 REVIEW OF SYSTEMS Expanded ROS: BARKER PEELER: + left lower pelvic pain Allergies and current medication updated:Yes EXAM: BP 80/54 Pulse 106 Resp 12 Ht 4' 9 (1.45m) Wt 84 lb 3.2 oz (38.2kg) SpO2 98% LMP10/25/2023 BMI 18.22 kg/(m^2). GENERAL: pleasant, female in no apparent distress HEENT: Normocephalic, atraumatic, mucus membranes moist, and no lesions CHEST: Normal inspiratory effort ABDOMEN: + scarring and ostomy bag BIMANUAL: uterus normal size, shape and consistency + tenderness with palpation to left adnexa NEURO: alert and oriented x3,exam grossly non-focal EXTREMITIES: normal ASSESSMENT AND PLAN: 1. Ovarian cyst, left - ICD9: 620.2, ICD10: N83.202 (primary diagnosis) - Recommend repeat ultrasound for further assessment - Reviewed risks of ovarian torsion and signs of when to go to ER - PELVIC US WHI - Discussed tumor markers and risk of false positive - Philippe declines RTO after ultrasound to review results. Philippe Wallace APRN.CNP Medical Decision Making: Problems: Moderate: New problem with uncertain prognosis Data: Unique test result(s) reviewed: 2 Unique test(s) ordered: 1 Risk: Low: Low risk from testing/treatment Medical Decision Making Level: 4 - Moderate documented in this encounterPark[facility]03-19-2024 History of Present illness Narrative* Caren Houser MD - 05/29/2023 1:10 PM EDT Acid Cleaner offered: Patient declines. Philippe Rg is a 37 year old female who presents for problem visit vaginal itching and burning for 3 days. HPI: Philippe Rg is a 37 year old female with a PMH of thyroid cancer and Celiac disease presenting for vaginal itching and burning. Reports symptoms occur after eating gluten, was diagnosed with Celiac disease a year ago. She has had these symptoms intermittently for a year and a half, was successfully treated with clobetasol. Patient is requesting refill of clobetasol. Patient also reports increased bruising on right lower leg and requesting lab work, has a history of thyroid cancer. Pt would like routine labs and vitamin levels due to h/o Crohn's and celiacs. Pt reports was canceled multiple times at primary care. No recent irritants or changes in soaps/detergents. OB History T0 L0 SAB2 IAB0 Ectopic0 Multiple0 Live Births0 Comment: Surrogate-1 child Manager Outpatient History LMP: 10/18/2021, Having periods Age at Menarche: Age at First : Age at Menopause: Manager Outpatient History Comments: Sexual Activity: Yes; Male Contraception: None PAST MEDICAL HISTORY Diagnosis Date Anemia Attention to ileostomy (HCC) 04/04/2012 Cholelithiasis 03/2016 CRBSI (catheter-related bloodstream infection) 09/07/2010, 08/04/2010 (yeast/GPC, lactobacillus casei) Crohn's disease (HCC) Dx age 12 Dr. Maier-GI Hyponatremia Non-traumatic compression fracture of vertebral column (HCC) 05/14/2012 Nontoxic single thyroid nodule 04/29/2020 Palpitations takes propanolol as needed, when HR >100. None currently -- medicine induced. Underweight Unspecified nutritional deficiency 10/19/10 Stop HPN Vitamin D insufficiency PAST SURGICAL HISTORY Procedure Laterality Date CHOLECYSTECTOMY 04/28/2016 COLECTOMY TOTAL WO ANAST 10/30/2003 resection of terminal ileum (had 10 cm of TI disease) and colon from cecum to proximal descending colon w/ end-to-side anastomosis ILEOSTOMY 06/26/2014 MIDLINE INSERTION/CONSULT 07/13/2013 MIDLINE INSERTION/CONSULT 06/29/2014 PAST SURGICAL HISTORY OF 10/24/2003 Open drainage of abdominal abscess PAST SURGICAL HISTORY OF 12/2006 dilation of anal stricture and anal fistulectomy. Colonoscopy showed anal sticture, inflamm in rectum, and tight stricture at 40 cm that could not be traversed PAST SURGICAL HISTORY OF 01/2007 resection of 6 cm of TI (short stricture in this area) and ICA including strictured area of colon; Irasema pouch, end ileostomy PAST SURGICAL HISTORY OF 03/2007 dilation of anorectal stricture PAST SURGICAL HISTORY OF 04/28/2010 EUA, ileoscopy, flex sig and anastamotic dilatation PAST SURGICAL HISTORY OF 06/02/2010 takedown fistula, SBR, partial colectomy with ileosigmoid anastamosis, diverting jejunostomy PAST SURGICAL HISTORY OF 05/2010 Cystoscopy, bilateral ureteral stent insertion PICC LINE INSERT/CONSULT 05/14/2012 THYROIDECTOMY TOTAL/COMPLETE N/A 05/28/2020 Partial FAMILY HISTORY Problem Relation Age of Onset Cancer Maternal Grandfather multiple myeloma Cancer Paternal Grandfather multiple myeloma Colon Cancer Paternal Grandmother 78 other (No uterus cancer) Other Hypertension Father Ovarian cancer No Family History Breast Cancer No Family History Social History Tobacco Use Smoking status: Never Smokeless tobacco: Never Vaping Use Vaping Use: Never used Substance Use Topics Alcohol use: Not Currently Comment: very rarely, none for one year 05/25/20 Drug use: No Comment: ria matthew for drug/alcohol abuse in the past. Current Outpatient Medications Medication Sig levothyroxine (SYNTHROID) 25 mcg tablet TAKE 1 TABLET DAILY (6 A.M.) cholecalciferol, vitamin D3, (VITAMIN D3 ORAL) Take by mouth. clobetasol (TEMOVATE) 0.05 % ointment Apply thin layer to affected area once a day x 4wks, then every other day for 4 wks, then twice a day for 4 weeks then PRN for symptoms ondansetron orally disintegrating (ZOFRAN ODT) 4 mg disintegrating tablet Take 1 tablet by mouth once daily as needed for nausea/vomiting. predniSONE (DELTASONE) 5 mg tablet Take 3 tablets po every day (Patient not taking: Reported on 09/26/2021 ) potassium chloride (KLOR-CON 10) 10 mEq tablet Take 1 tablet by mouth once daily. Multivitamin capsule Take 1 capsule by mouth once daily. No current facility-administered medications for this visit. Allergies As of Date: 05/29/2023 Allergen Noted Reaction ADHESIVE TAPE (ROSINS) 04/28/2010 Rash HUMIRA [ADALIMUMAB] 01/10/2010 Intolerance IRON 03/07/2012 Intolerance REMICADE [INFLIXIMAB] 01/10/2010 Shortness of Breath VANCOMYCIN 09/07/2010 Rash Fully Assessed 01/18/2022 REVIEW OF SYSTEMS Abdomen: No bloating, early satiety, indigestion, or increased flatulence. No abdominal pain, nausea, vomiting, diarrhea, or constipation. Bladder: No dysuria, gross hematuria, urinary frequency, urinary urgency, or incontinence. Breast: No breast lumps, nipple d/c, overlying skin changes, redness or skin retraction. Expanded ROS: BARKER PEELER: Negative for abnormal vaginal bleeding, abnormal vaginal discharge or Positive for vaginal itching and burning Allergies and current medication updated:N/A EXAM: BP 110/60 Ht 4' 8.299 (1.43m) Wt 88 lb (39.9kg) LMP 05/28/2023 BMI 19.52 kg/(m^2). GENERAL: pleasant, female in no apparent distress HEENT: Normocephalic, atraumatic, mucus membranes moist, and no lesions NECK: full range of motion DERMATOLOGY: without lesions NEURO: alert and oriented x3,exam grossly non-focal ASSESSMENT AND PLAN: Encounter Diagnosis ICD-10-CM 1. Vaginal itching N89.8 clobetasol (TEMOVATE) 0.05 % ointment 2. Crohn's disease of small intestine with other complication (HCC) K50.018 MAGNESIUM BLD VITAMIN B12 BLOOD 3. Bruising T14.8XXA 4. Celiac disease K90.0 5. Screening for deficiency anemia Z13.0 CBC 6. Screening for diabetes mellitus Z13.1 COMP METABOLIC PANEL 7. Screening for metabolic disorder Z13.228 COMP METABOLIC PANEL 8. Screening for thyroid disorder Z13.29 TSH BLD 9. Encounter for vitamin deficiency screening Z13.21 VITAMIN D 25 HYDROXY 10. Advised on vulvar/vaginal hygiene. 11.schedule for routine yearly exam Medical Decision Making: Problems: Moderate: 2+ stable chronic illnesses Data: Unique test(s) ordered: 3+ Risk: Moderate: Drug management Medical Decision Making Level: 4 - Moderate Caren sOpina MD documented in this encounterPark[facility]08-18-2023 Miscellaneous Notes* Telephone Encounter - Tra Garcia V, MD - 10/27/2022 9:29 AM EDT The following approved medication requests have been transmitted electronically. Requested Prescriptions Pending Prescriptions Disp Refills levothyroxine (SYNTHROID) 25 mcg tablet [Pharmacy Med Name: L-THYROXINE (SYNTHROID) TABS 25MCG] 90 tablet 0 Sig: TAKE 1 TABLET DAILY (6 A.M.) Tra Garcia MD * Telephone Encounter - Jess Conde Ma - 10/25/2022 2:56 PM EDT Patients last Endocrinology visit occurred Last encounter Visit on 04/12/2021 (with Elida Franklin) Follow-up evaluation has not been established Upcoming Endocrinology Appointments - Next 365 Days No appointments to display . Requested Prescriptions Pending Prescriptions Disp Refills levothyroxine (SYNTHROID) 25 mcg tablet [Pharmacy Med Name: L-THYROXINE (SYNTHROID) TABS 25MCG] 90 tablet 3 Sig: TAKE 1 TABLET DAILY (6 A.M.) If patient is due for an appointment please route to provider for refill consideration and also to the endo scheduling pool. Patient is overdue for appt. Will need appt documented in this encounterPark[facility]11-10-2022 Miscellaneous Notes* Telephone Encounter - Julia Hubbrad MD - 01/19/2022 8:36 AM EST Please schedule follow up appointment with Horace Hobson or Dr Lewis. documented in this encounterParkview [facility]11-10-2022 Evaluation note* Diagnosis Stage 3 chronic kidney disease, unspecified whether stage 3a or 3b CKD (HCC)- Primary Vitamin D deficiency Unspecified vitamin D deficiency documented in this encounter [facility]11-09-[facility] History of Present illness Narrative* Vicky Mayfield APRN.[facility] - 01/18/2022 8:07 AM EST CC: Patient presents with: Urinary Frequency: burning with urination x 1 week HPI Philippe Rg is a 36 year old female who presents with complaint of possible UTI. These symptomshave been present for 7 days. Associated symptoms: burning and frequency Denies: fever, chills, sweats, abdominal pain, and flank pain Treatments: nothing The ROS was otherwise negative. PMH, Medications, labs, allergies, and recent past visits with PCP were reviewed and updated as able. PHYSICAL EXAM: BP 88/58 Pulse 80 Temp 36.1 C (96.9 F) Resp 16 Wt 35.4 kg (78 lb) LMP 10/18/2021 SpO2 98% BMI 16.88 kg/m General: Well appearing and alert CV: Regular rate and rhythm without obvious murmur Lungs: clear to auscultation bilaterally Back: straight and symmetric Abdomen: soft, nontender, nondistended, ostomy bag PAST MEDICAL HISTORY Diagnosis Date Anemia Attention to ileostomy (HCC) 04/04/2012 Cholelithiasis 03/2016 CRBSI (catheter-related bloodstream infection) 09/07/2010, 08/04/2010 (yeast/GPC, lactobacillus casei) Crohn's disease (HCC) Dx age 12 Dr. Maier-GI Hyponatremia Non-traumatic compression fracture of vertebral column (HCC) 05/14/2012 Nontoxic single thyroid nodule 04/29/2020 Palpitations takes propanolol as needed, when HR >100. None currently -- medicine induced. Underweight Unspecified nutritional deficiency 10/19/10 Stop HPN Vitamin D insufficiency PAST SURGICAL HISTORY Procedure Laterality Date CHOLECYSTECTOMY 04/28/2016 COLECTOMY TOTAL WO ANAST 10/30/2003 resection of terminal ileum (had 10 cm of TI disease) and colon from cecum to proximal descending colon w/ end-to-side anastomosis ILEOSTOMY 06/26/2014 MIDLINE INSERTION/CONSULT 07/13/2013 MIDLINE INSERTION/CONSULT 06/29/2014 PAST SURGICAL HISTORY OF 10/24/2003 Open drainage of abdominal abscess PAST SURGICAL HISTORY OF 12/2006 dilation of anal stricture and anal fistulectomy. Colonoscopy showed anal sticture, inflamm in rectum, and tight stricture at 40 cm that could not be traversed PAST SURGICAL HISTORY OF 01/2007 resection of 6 cm of TI (short stricture in this area) and ICA including strictured area of colon; Irasema pouch, end ileostomy PAST SURGICAL HISTORY OF 03/2007 dilation of anorectal stricture PAST SURGICAL HISTORY OF 04/28/2010 EUA, ileoscopy, flex sig and anastamotic dilatation PAST SURGICAL HISTORY OF 06/02/2010 takedown fistula, SBR, partial colectomy with ileosigmoid anastamosis, diverting jejunostomy PAST SURGICAL HISTORY OF 05/2010 Cystoscopy, bilateral ureteral stent insertion PICC LINE INSERT/CONSULT 05/14/2012 THYROIDECTOMY TOTAL/COMPLETE N/A 05/28/2020 Partial ALLERGIES Adhesive Tape (Rosins), Humira [Adalimumab], Iron, Remicade [Infliximab], and Vancomycin MEDICATIONS levothyroxine (SYNTHROID) 25 mcg tablet Take 1 tablet by mouth DAILY (6 AM). cholecalciferol, vitamin D3, (VITAMIN D3 ORAL) Take by mouth. clobetasol (TEMOVATE) 0.05 % ointment Apply thin layer to affected area once a day x 4wks, then every other day for 4 wks, then twice a day for 4 weeks then PRN for symptoms ondansetron orally disintegrating (ZOFRAN ODT) 4 mg disintegrating tablet Take 1 tablet by mouth once daily as needed for nausea/vomiting. potassium chloride (KLOR-CON 10) 10 mEq tablet Take 1 tablet by mouth once daily. Multivitamin capsule Take 1 capsule by mouth once daily. cephALEXin (KEFLEX) 250 mg/5 mL suspension Take 10 mL by mouth twice daily for 7 days. fluconazole (DIFLUCAN) 150 mg tablet Take 1 tablet by mouth one time only for 1 dose. Repeat in 3 days as needed. predniSONE (DELTASONE) 5 mg tablet Take 3 tablets po every day (Patient not taking: Reported on 09/26/2021 ) FAMILY HISTORY Problem Relation Age of Onset Cancer Maternal Grandfather multiple myeloma Cancer Paternal Grandfather multiple myeloma Colon Cancer Paternal Grandmother 78 other (No uterus cancer) Other Hypertension Father Ovarian cancer No Family History Breast Cancer No Family History Social History Tobacco Use Smoking status: Never Smokeless tobacco: Never Vaping Use Vaping Use: Never used Substance Use Topics Alcohol use: Not Currently Comment: very rarely, none for one year 05/25/20 Drug use: No Comment: ria matthew for drug/alcohol abuse in the past. .ASSESSMENT/PLAN: 1. Urinary frequency - ICD9: 788.41, ICD10: R35.0 (primary diagnosis) - UA DIP, URINE (POC) - URINE CULTURE 2. Burning with urination - ICD9: 788.1, ICD10: R30.0 - UA DIP, URINE (POC) - URINE CULTURE Flex twice a day for 7 days liquid form patient's request. In 1 Diflucan patient will not take Diflucan at the same time as her Zofran. Prescription instructions reviewed with patient as applicable. Potential red flag symptoms discussed with the patient. Reviewed appropriate action plan to take if red flag symptoms occur. Patient agreeable to treatment plan. Vicky Mayfield APRN.ART documented in this encounterPark[facility]22 Miscellaneous Notes* Telephone Encounter - Meryl Singleton RN - 10/31/2021 12:30 PM EDT Patient notified. Meryl Singleton RN The following approved medication requests have been transmitted electronically. Requested Prescriptions Signed Prescriptions Disp Refills terconazole (TERAZOL 7) 0.4 % vaginal cream 45 g 0 Sig: Use 1 Applicator vaginally daily at bedtime for 7 days. Authorizing Provider: RENETTA SOTOMAYOR Pharmacy Information Pharmacy Address [phone] [place] [address] * Telephone Encounter - Renetta Sotomayor APRN.CNP - 10/31/2021 10:38 AM EDT +yeast, per JERAD notes Terzol cream sent to pharmacy. Renetta Sotomayor APRN.CNP documented in this encounterParkview [facility]08-17-2022 Miscellaneous Notes* Addendum Note - Magda Lindsay APRN.CNM - 10/26/2021 5:24 PM EDTAddended by: MAGDA LINDSAY on: 10/26/2021 05:24 PM Modules accepted: Orders * Addendum Note - Tonja Colindres LPN - 10/26/2021 4:48 PM EDTAddended by: TONJA COLINDRES LPN on: 10/26/2021 04:48 PM Modules accepted: Orders * Addendum Note - Tonja Colindres LPN - 10/26/2021 4:10 PM EDTAddended by: TONJA COLINDRES LPN on: 10/26/2021 04:10 PM Modules accepted: Orders documented in this encounterParkview [facility]08-17-2022 Instructions* Patient Instructions* Magda Lindsay APRN.CNM - 10/26/2021 2:53 PM EDT Vasectomy with [facility] Apply steroid cream twice a day for 2 weeks Then once a day for 4 weeks Then every other day for 4 weeks Then twice weekly for 2 weeks After that can use over the counter hydrocortisone cream for discomfort. If yeast can use vaginal or oral documented in this encounterParkview Health [facility]08-17-2022 History of Present illness Narrative* Magda Lindsay APRN.CNM - 10/26/2021 2:27 PM EDT Philippe is a 35 year old who presents for an annual gynecologic exam without complaints. Using temovate for spongiotic dermatitis. Having improvement but still present. Menses: cycles every 10/18/21 days and 30 days of flow. Contraception: condoms and withdrawal HPV vaccine: No Last Pap: 10/01/2020 normal HPV: 10/01/2020 negative History of abnormal pap: No Last mammogram: never Sexually active: Yes Time with current partner: , current partner x 2015 Pain with intercourse: Pain is external due to irritation Postcoital bleeding: No Exercise: Busy with toddler, walking Diet: Restrictive diet due to GI Seatbelt use: Yes OB History T0 L0 SAB2 IAB0 Ectopic0 Multiple0 Live Births0 Comment: Surrogate-1 child Manager Outpatient History LMP: 09/20/2021, Having periods Age at Menarche: Age at First : Age at Menopause: Manager Outpatient History Comments: Sexual Activity: Yes; Male Contraception: None PAST MEDICAL HISTORY Diagnosis Date Anemia Attention to ileostomy (HCC) 04/04/2012 Cholelithiasis 03/2016 CRBSI (catheter-related bloodstream infection) 09/07/2010, 08/04/2010 (yeast/GPC, lactobacillus casei) Crohn's disease (HCC) Dx age 12 Dr. Maier-GI Hyponatremia Non-traumatic compression fracture of vertebral column (HCC) 05/14/2012 Nontoxic single thyroid nodule 04/29/2020 Palpitations takes propanolol as needed, when HR >100. None currently -- medicine induced. Underweight Unspecified nutritional deficiency 10/19/10 Stop HPN Vitamin D insufficiency PAST SURGICAL HISTORY Procedure Laterality Date CHOLECYSTECTOMY 04/28/2016 COLECTOMY TOTAL WO ANAST 10/30/2003 resection of terminal ileum (had 10 cm of TI disease) and colon from cecum to proximal descending colon w/ end-to-side anastomosis ILEOSTOMY 06/26/2014 MIDLINE INSERTION/CONSULT 07/13/2013 MIDLINE INSERTION/CONSULT 06/29/2014 PAST SURGICAL HISTORY OF 10/24/2003 Open drainage of abdominal abscess PAST SURGICAL HISTORY OF 12/2006 dilation of anal stricture and anal fistulectomy. Colonoscopy showed anal sticture, inflamm in rectum, and tight stricture at 40 cm that could not be traversed PAST SURGICAL HISTORY OF 01/2007 resection of 6 cm of TI (short stricture in this area) and ICA including strictured area of colon; Irasema pouch, end ileostomy PAST SURGICAL HISTORY OF 03/2007 dilation of anorectal stricture PAST SURGICAL HISTORY OF 04/28/2010 EUA, ileoscopy, flex sig and anastamotic dilatation PAST SURGICAL HISTORY OF 06/02/2010 takedown fistula, SBR, partial colectomy with ileosigmoid anastamosis, diverting jejunostomy PAST SURGICAL HISTORY OF 05/2010 Cystoscopy, bilateral ureteral stent insertion PICC LINE INSERT/CONSULT 05/14/2012 THYROIDECTOMY TOTAL/COMPLETE N/A 05/28/2020 Partial FAMILY HISTORY Problem Relation Age of Onset Cancer Maternal Grandfather multiple myeloma Cancer Paternal Grandfather multiple myeloma Colon Cancer Paternal Grandmother 78 other (No uterus cancer) Other Hypertension Father Ovarian cancer No Family History Breast Cancer No Family History SOCIAL HISTORY Social History Tobacco Use Smoking status: Never Smokeless tobacco: Never Vaping Use Vaping Use: Never used Substance Use Topics Alcohol use: Not Currently Comment: very rarely, none for one year 05/25/20 Drug use: No Comment: ria matthew for drug/alcohol abuse in the past. REVIEW OF SYSTEMS Abdomen: No abdominal pain, nausea, vomiting, diarrhea, or constipation. No bloating, early satiety, indigestion, or increased flatulence. Bladder: No dysuria, gross hematuria, urinary frequency, urinary urgency, or incontinence. Breast: No breast lumps, nipple d/c, overlying skin changes, redness or skin retraction. Allergies and current medication updated:Yes EXAM: LMP 09/20/2021 BP 86/58 Ht 4' 9 (1.448 m) Wt 84 lb (38.1 kg) LMP 10/18/2021 BMI 18.18 kg/m GENERAL: pleasant, female in no apparent distress HEENT: Normocephalic, atraumatic, mucus membranes moist, and no lesions NECK: Supple, full range of motion, no adenopathy, and thyroid normal DERMATOLOGY: Normal, without lesions, non-icteric, and non-hirsute BREAST: soft, non-tender, symmetric, no dominant mass, normal nipple-areolar complex, no lymphadenopathy, and no nipple discharge CHEST: Normal inspiratory effort ABDOMEN: soft, non-tender, no masses. Multiple healed surgical scars and ostomy bag. PELVIC: external genitalia normal, normal Bartholin's glands, urethra, [place]'s glands, no vulvar lesions, no cervical lesions, good vaginal support, normal appearing perineal body and perianal region, abnormal discharge white vaginal discharge, no odor. BIMANUAL: uterus normal size, shape and consistency, no adnexal masses, and non-tender RECTOVAGINAL: NEURO: alert and oriented x3,exam grossly non-focal EXTREMITIES: normal ASSESSMENT/PLAN: 1. Encounter for gynecological examination (general) (routine) without abnormal findings - ICD9: V72.31, ICD10: Z01.419 (primary diagnosis) - Completed pelvic and breast exam - Encouraged monthly BSE - Follow up for annual exam in one year. 2. Vaginal discharge - ICD9: 623.5, ICD10: N89.8 -BV and yeast completed. Patient stated if positive due to GI absorption requires 1 week of diflucan. Discussed could also try using Terazol cream 7 instead. Will discuss after results 3. Vulvar itching - ICD9: 698.1, ICD10: L29.2 -Temovate twice a day for two weeks, daily for 4 weeks, every other day for 4 weeks, twice weekly for 4 weeks then PRN hydrocortisone cream. If no resolution to call for further management. Also to stat Zrytec for 30-60 days and see if this offers additional symptom relief. 4. Spongiotic dermatitis - ICD9: 692.9, ICD10: L30.8 - Topical steriod tx with Rx for steriod cream/ointment 5. control counseling - ICD9: V25.09, ICD10: Z30.09 -Reviewed control methods. Patient does not want to take anything and planning vasectomy, information given.Recommend condom use . 1) Health maintenance: Pap/HPV up to date. Nutrition, exercise and routine health maintenance exams reviewed. Calcium/Vitamin D supplementation information provided. Lipids/glucose: followed by PCP Vitamin D: followed by PCP 2) Contraception: condoms. Contraceptive options reviewed and information provided. 3) STD screening: Declined STD check. 4) Follow up one year or sooner as needed Magda Lindsay APRN.CNM documented in this encounterPark[facility]08-06-2022 Miscellaneous Notes* Telephone Encounter - Alo Mari MA - 10/15/2021 8:48 AM EDT Patient did have labs completed on 06/04/21 Requester: Mail Order Patients last Endocrinology visit occurred 08/05/20. Follow-up evaluation has not been established. Pending Prescriptions Disp Refills LEVOTHYROXINE 25 MCG TABLET 90 tablet 3 Sig: Take 1 tablet by mouth DAILY (6 AM). SHANE: No If patient is due for an appointment please route to provider for refill consideration and also to the endo scheduling pool. PSS NOTE: Patient needs scheduled appointment Yes, patient was due to follow up around 08/05/21 documented in this encounterParkview [facility]07-18-2022 Instructions* Patient Instructions* Magda Lindsay APRN.CNM - 09/26/2021 2:03 PM EDT .Guidelines for Vulvar Skin Care NOTE: The goal is to promote healthy vulvar skin. This is done by decreasing and/or removing any chemicals, moisture, or rubbing (friction). Any products listed below have been suggested for use because of their past success in helping to decrease or relieve vulvar/vaginal itching and burning. LAUNDRY PRODUCTS Use a detergent free of dyes, enzymes and perfumes (such as ALL-Free and Clear or Earth-Rite) on any clothing that comes in contact with your vulva such as your underwear, exercise clothes, towels, or pajama bottoms. Use 1/3 to 1/2 the suggested amount per load. Other clothing may be washed in the laundry soap of your choice. Do not use a fabric softener in the washer or dryer on these articles of clothing. If you do use dryer sheets with the rest of your clothes, for any loads, you must hang dry your underwear, towels, and any other clothing that comes in contact with your vulva. Stain Removing Products. Soak and rinse in clear water all underwear and towels on which you have used a stain removing product. Then wash in your regular washing cycle. This removes as much of the product as possible. CLOTHING Wear white all cotton underwear, not nylon with a cotton crotch. Cotton allows air in and moisture out. Avoid pantyhose. If you must wear them, either cut out the carlee crotch (if you cut out the crotch be sure to leave about 1/4 to 1/2 inch of fabric from the seam to prevent running) or wear thigh high hose. Many stores now carry thigh high nylons. Avoid tight clothing, especially clothing made of synthetic fabrics. Remove wet bathing and exercise clothing as soon as you can. BATHING AND HYGIENE Avoid bath soaps, lotions, gels, etc. which contain perfumes. These may smell nice but can be irritating. This includes many baby products and feminine hygiene products marked gentle or mild. We suggest any of the following soaps: Dove-Hypoallergenic, Neutrogena, Basis, or Pears. Do not use soap directly on the vulvar skin just warm water and your hand will keep the vulvar area clean without irritating the skin. Avoid all bubble baths, bath salts and scented oils. Do not scrub vulvar skin with a washcloth, washing with your hand is adequate for good cleaning. Do not use hot water while bathing or showering. Only luke-warm water should only be used. Pat dry rather than rubbing with a towel or use a hairdryer on a cool setting to dry the vulva. Baking Soda soaks. Soak in lukewarm (not hot) bath water with 4-5 tablespoons of baking soda to help soothe vulvar itching and burning. A sitz bath that goes on the toilet is best. Soak 1 to 3 times a day for 10-15 minutes when you have vulvar symptoms. Use white, unscented toilet paper. If paper has a perfumed scent or lotion, avoid using it. Avoid wiping after urinating; blot or dab only. Avoid all feminine hygiene sprays, perfumes, adult, or baby wipes. Pour lukewarm water over the vulva after urinating if urine causes burning of the skin. Pat dry rather than rubbing with a towel. Avoid the use of deodorized pads and tampons. Tampons should be used when the blood flow is heavy enough to soak one tampon in four hours or less. Tampons are safe for most women, but wearing them too long or when the blood flow is light may result in vaginal infection, increased discharge, odor, or toxic shock syndrome. Also, use only pads that have a cotton liner that comes in contact with yourskin (no dry weave pads). Avoid all over the counter creams or ointments, except A&D Ointment (if you have wool allergy do not use A&D). Ask your health care provider first. Small amounts of A&D Ointment or Criscomay be applied to your vulva as often as needed to protect the skin. It may also help to decrease skin irritation during your period and when you urinate. Brands that have been helpful are the [employer] brand, [employer] brand, [employer] brand, or Machine Talker brand. DO NOT DOUCHE. Baking soda soaks will help rinse away extra discharge and help with odor. DO NOT SHAVE, wax or laser the vulvar area (the bikini line is ok). Some women may have problems with chronic dampness. Keeping dry is important. Choose cotton fabrics whenever you can. Keep an extra pair of underwear with you in a small bag and change if you become damp during the day at work/school. Gold Dunbar Powder or Zeosorb Powder may be applied to the vulva and groin area one to two times per day to help absorb moisture. Dryness and irritation during intercourse may be helped by using a lubricant. Use a small amount ofa pure vegetable oil/olive oil or Crisco (solid or oil). The vegetable oils contain no chemicals toirritate vulvar/vaginal skin. Vegetable oils will rinse away with water and will not increase your chances of infection. Water-based products like K-Y Jelly are helpful, but may tend to dry before intercourse is over and also contain chemicals that can irritate your vulvar skin. It may be helpful to use a non-lubricated, non-spermicidal condom, and use vegetable oil as the lubricant. This will help keep the semen off the skin which can decrease burning and irritation after intercourse. CONTROL OPTIONS All hormonal contraceptives will have an effect on vaginal secretions but should not increase your frequency of vaginitis. Lubricated condoms, contraceptive jellies, creams, or sponges may cause itching and burning. Ask your health care provider for help. The use of latex condoms with a vegetable oil as a lubricant (#14 above) is suggested to protect your skin. Oil based lubricants may affect the integrity of condoms when used for control or prevention of sexually transmitted diseases. Our experience has not found this to be a problem with vegetable based oils. However, the Centers for Disease Control recommends that condoms not be used withany oil based lubricants for control or prevention of sexually transmitted disease. documented in this encounterPark[facility]07-18-2022 History of Present illness Narrative* Magda Lindsay APRN.CNM - 09/26/2021 1:25 PM EDT Philippe Rg is a 35 year old female who presents for problem visit for vaginal redness and irritation. HPI: Patient reports having vaginal redness itching, burning, and redness for four months. Denies odor or discharge. Gets worse with intercourse. It is constant. It will slightly go away if patient has not had intercourse for a few weeks. No history of STDs. Previously had this issue and was prescribed Lotrisone in the past with some improvement. 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 Maier-GI Hyponatremia Non-traumatic compression fracture of vertebral column (HCC) 05/14/2012 Nontoxic single thyroid nodule 04/29/2020 Palpitations takes propanolol as needed, when HR >100. None currently -- medicine induced. Underweight Unspecified nutritional deficiency 10/19/10 Stop HPN Vitamin D insufficiency PAST SURGICAL HISTORY Procedure Laterality Date CHOLECYSTECTOMY 04/28/2016 COLECTOMY TOTAL WO ANAST 10/30/2003 resection of terminal ileum (had 10 cm of TI disease) and colon from cecum to proximal descending colon w/ end-to-side anastomosis ILEOSTOMY 06/26/2014 MIDLINE INSERTION/CONSULT 07/13/2013 MIDLINE INSERTION/CONSULT 06/29/2014 PAST SURGICAL HISTORY OF 10/24/2003 Open drainage of abdominal abscess PAST SURGICAL HISTORY OF 12/2006 dilation of anal stricture and anal fistulectomy. Colonoscopy showed anal sticture, inflamm in rectum, and tight stricture at 40 cm that could not be traversed PAST SURGICAL HISTORY OF 01/2007 resection of 6 cm of TI (short stricture in this area) and ICA including strictured area of colon; Irasema pouch, end ileostomy PAST SURGICAL HISTORY OF 03/2007 dilation of anorectal stricture PAST SURGICAL HISTORY OF 04/28/2010 EUA, ileoscopy, flex sig and anastamotic dilatation PAST SURGICAL HISTORY OF 06/02/2010 takedown fistula, SBR, partial colectomy with ileosigmoid anastamosis, diverting jejunostomy PAST SURGICAL HISTORY OF 05/2010 Cystoscopy, bilateral ureteral stent insertion PICC LINE INSERT/CONSULT 05/14/2012 THYROIDECTOMY TOTAL/COMPLETE N/A 05/28/2020 Partial FAMILY HISTORY Problem Relation Age of Onset Cancer Maternal Grandfather multiple myeloma Cancer Paternal Grandfather multiple myeloma Colon Cancer Paternal Grandmother 78 other (No uterus cancer) Other Hypertension Father Ovarian cancer No Family History Breast Cancer No Family History Social History Tobacco Use Smoking status: Never Smoker Smokeless tobacco: Never Used Vaping Use Vaping Use: Never used Substance Use Topics Alcohol use: Not Currently Comment: very rarely, none for one year 05/25/20 Drug use: No Comment: deneis tx for drug/alcohol abuse in the past. Current Outpatient Medications Medication Sig cholecalciferol, vitamin D3, (VITAMIN D3 ORAL) Take by mouth. ondansetron orally disintegrating (ZOFRAN ODT) 4 mg disintegrating tablet Take 1 tablet by mouth once daily as needed for nausea/vomiting. levothyroxine (SYNTHROID) 25 mcg tablet Take 1 tablet by mouth DAILY (6 AM). potassium chloride (KLOR-CON 10) 10 mEq tablet Take 1 tablet by mouth once daily. Multivitamin capsule Take 1 capsule by mouth once daily. predniSONE (DELTASONE) 5 mg tablet Take 3 tablets po every day (Patient not taking: Reported on 09/26/2021 ) Norethindrone Acet-Ethinyl Est (,) 1-20 mg-mcg per tablet Take one active pill continuously x 3 months - discard inactive pills (Patient not taking: Reported on 09/26/2021 ) No current facility-administered medications for this visit. Allergies As of Date: 09/26/2021 Allergen Noted Reaction ADHESIVE TAPE (ROSINS) 04/28/2010 Rash HUMIRA [ADALIMUMAB] 01/10/2010 Intolerance IRON 03/07/2012 Intolerance REMICADE [INFLIXIMAB] 01/10/2010 Shortness of Breath VANCOMYCIN 09/07/2010 Rash Fully Assessed 09/26/2021 REVIEW OF SYSTEMS Abdomen: No bloating, early satiety, indigestion, or increased flatulence. No abdominal pain, nausea, vomiting, diarrhea, or constipation. Bladder: No dysuria, gross hematuria, urinary frequency, urinary urgency, or incontinence. Breast: No breast lumps, nipple d/c, overlying skin changes, redness or skin retraction. Expanded ROS: N/A Allergies and current medication updated:Yes EXAM: BP 112/72 Wt 86 lb (39.0kg) LMP 09/20/2021 GENERAL: pleasant, female in no apparent distress HEENT: Normocephalic and atraumatic NECK: Supple and full range of motion DERMATOLOGY: Normal and without lesions CHEST: Normal inspiratory effort ABDOMEN: soft, non-tender and no masses PELVIC: external genitalia normal, normal Bartholin's glands, urethra, [place]'s glands, no vulvar lesions, no cervical lesions, good vaginal support, physiologic discharge present, normal appearing perineal body and perianal region. Vulva with erythema and lichenification of vulva. BIMANUAL: deferred NEURO: alert and oriented x3,exam grossly non-focal EXTREMITIES: normal ASSESSMENT/PLAN: 1. Vaginal itching - ICD9: 698.1, ICD10: N89.8 (primary diagnosis) - SOLOMON / TRICHOMONAS AMPLIFICATION - BACTERIAL VAGINOSIS AMPLIFICATION - CLOBETASOL 0.05 % TOPICAL OINTMENT 2. Vulvar itching - ICD9: 698.1, ICD10: L29.2 - SURGICAL PATHOLOGY Magda Lindsay APRN.CNM Philippe Rg is a 35 year old female who presents today for a vulvar biopsy. Indication: persistent pruritis. UNIVERSAL PROTOCOL / SAFETY CHECKLIST Procedure to be Performed: vulvar biopsy Sign In: A Moment of CARE was completed. Personnel directly involved with the procedure wore the appropriate PPE (Personal Protective Equipment). Special equipment: suarez punch Patient/Surrogate Stated/Verified: PATIENT VERIFIED(optional for EMERGENT procedures): Patient name, Date of , Relevant allergies and The intended procedure Time Out Communication: Intended patient and procedure match the source documents. Consent documented and matches the intended procedure. No relevant labs, photos, and/or imaging studies were applicable for review. Correct side/site marked and visible. Medications required for procedure verified. No fire risk assessment and interventions applicable. No implant(s) inserted. Sign Out: SIGN OUT (optional for EMERGENT procedures): All specimen containers correctly labeled. All instruments, equipment, possible retained foreign bodies accounted for. Post-procedure follow-up management communicated and Plan of Care Visit completed when applicable. Magda Lindsay APRN.CNM PROCEDURE NOTE: GROSS LESIONS: No BIOPSY: Area was cleansed with betadine and anesthetized with 1 mL 1% lidocaine with 1:100,000 epi.3mm [place] punch used to biopsy region. HEMOSTASIS: Obtained with silver nitrate Procedure Summary: Patient tolerated procedure well. ASSESSMENT: PLAN: Specimens labeled and sent to Pathology. Will notify patient of results in 1-2 weeks. Will follow up to discuss results. Treat with temovate at this time. Follow up in 4 weeks for annual exam Magda Lindsay APRN.CNM documented in this encounterParkview [facility]06-01-2022 Miscellaneous Notes* Telephone Encounter - Priyanka Campa RN - 08/10/2021 12:42 PM EDT Called patient. Received voicemail. Left a message to inform the patient that we need her updated insurance information so she can proceed with getting her infusions. Informed patient that this couldbe done via general line or via mychart. Call back number Provided. Priyanka Campa RN * Telephone Encounter - Mp Peterson - 08/10/2021 11:25 AM EDT === PHARMACY TEAM ==== ADDITIONAL INFORMATION NEEDED/REQUESTED Case Submitted: No Request Type: Provider Date of Service: tbs Additional Information Needed: no active coverage for patient in chart- Message from patient on 05/26/21 states that is getting new insurance as of 07/10/21- please update in chart Request from Payor by: N/A Email Sent to: JEANETTE Méndez, Priyanka Kendall, Melva Gomes Requested Clinicals/Information Sent: N/A documented in this encounterPark[facility]22 Miscellaneous Notes* Telephone Encounter - Majo Solis RN - 06/07/2021 11:34 AM EDT Called patient to inform her of needing Vitamin D supplement and to follow up after ER visit 06/04/21. Patient had virtual visit with Dr. Cormier 06/06/21. Patient advised how much OTC VItamin D to takein visit. No further follow needed at this time . All concerns addressed. Majo Solis RN documented in this encounterPark[facility]03-28-2022 History of Present illness Narrative* Darin Cormier MD - 06/06/2021 4:15 PM EDT TELEPHONE FOLLOW-UP ENCOUNTER Philippe Danelle Rg [phone] [id number] has requested a telemedicine follow-up visit. Philippe K Yaneli verbalized informed consent to proceed with the telemedicine follow-up visit and was informed that thedetails of this telephone visit would be recorded as part of her EMR Review of IBD history (copied and updated from my prior notes): Longstanding Crohn's since late - colonic, perianal, ileal and jejunal disease. She is S/P 4 resections (2003, 2006, 2010 and 06/2014) resulting in proctocolectomy and resections of segments of ileum and jejunum. She developed perianal abscess in 07/2011, labial abscess in 12/2011 and then peristomal fistulizing complications in 2013 requiring further surgery in 2014. She was on Stelara from 2012 to 2015 and now on it again from 04/2017 to 03/2021- did very well clinically on this but over thepast year she developed progressive side effects of voice hoarseness and more recently enlarged lymph nodes in her neck after each Stelara injection (had LN biopsy which came back benign). Review of prior medical tx: - Imuran- Was on this in the past but ?mostly in conjunction with Remicade - All 3 anti-TNFs- she had response to Remicade but then developed slow loss of response and infusion reactions. Switched to Humira but could not tolerate it due to tachycardia. Then was on Cimzia insummer 2009 but this had to be D/Jordan after she developed pneumonia and she had surgery; on it againfrom 02/2011- 08/2011 but stopped when she presented with recurrent symptoms and evidence of active rectal inflammation UPDATED HISTORY: Philippe was on Stelara BUT last dose was 03/18/2021. Since early 2020, she developed progressive side effects of voice hoarseness and more recently enlarged lymph nodes after each Stelara injection. She saw thyroid specialist because of concern for recurrent thyroid CA- felt to be lymph nodes and had biopsy of a LN which came back showing benign lymphoid tissue. Based on this, we decided to switch to Entyvio- Rx submitted but has not been approved by insuranceyet. She went on a course of prednisone- started in 04/2021 with very slow taper of 2.5 mg per week. Currently she is on 15 mg of prednisone; would have been due for a dose of Stelara earlier this month In addition to all the above, there has been a viral syndrome affecting all her family members- shegot this as well late last week (increased stoma output, nausea and dehydration)- went to ED over the weekend. Feeling better today. Current Clinical Symptoms Has emptied her ileostomy only 3 times today; 1/2 full; watery consistency No blood per stoma No abdominal pain No nausea/vomiting Weight is down 1.5 pounds (85 pounds) with the recent viral syndrome. 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 Maier-GI Hyponatremia Non-traumatic compression fracture of vertebral column (HCC) 05/14/2012 Nontoxic single thyroid nodule 04/29/2020 Palpitations takes propanolol as needed, when HR >100. None currently -- medicine induced. Underweight Unspecified nutritional deficiency 10/19/10 Stop HPN Vitamin D insufficiency PAST SURGICAL HISTORY Procedure Laterality Date CHOLECYSTECTOMY 04/28/2016 COLECTOMY TOTAL WO ANAST 10/30/2003 resection of terminal ileum (had 10 cm of TI disease) and colon from cecum to proximal descending colon w/ end-to-side anastomosis ILEOSTOMY 06/26/2014 MIDLINE INSERTION/CONSULT 07/13/2013 MIDLINE INSERTION/CONSULT 06/29/2014 PAST SURGICAL HISTORY OF 10/24/2003 Open drainage of abdominal abscess PAST SURGICAL HISTORY OF 12/2006 dilation of anal stricture and anal fistulectomy. Colonoscopy showed anal sticture, inflamm in rectum, and tight stricture at 40 cm that could not be traversed PAST SURGICAL HISTORY OF 01/2007 resection of 6 cm of TI (short stricture in this area) and ICA including strictured area of colon; Irasema pouch, end ileostomy PAST SURGICAL HISTORY OF 03/2007 dilation of anorectal stricture PAST SURGICAL HISTORY OF 04/28/2010 EUA, ileoscopy, flex sig and anastamotic dilatation PAST SURGICAL HISTORY OF 06/02/2010 takedown fistula, SBR, partial colectomy with ileosigmoid anastamosis, diverting jejunostomy PAST SURGICAL HISTORY OF 05/2010 Cystoscopy, bilateral ureteral stent insertion PICC LINE INSERT/CONSULT 05/14/2012 THYROIDECTOMY TOTAL/COMPLETE N/A 05/28/2020 Partial FAMILY HISTORY Problem Relation Age of Onset Cancer Maternal Grandfather multiple myeloma Cancer Paternal Grandfather multiple myeloma Colon Cancer Paternal Grandmother 78 other (No uterus cancer) Other Hypertension Father Ovarian cancer No Family History Breast Cancer No Family History Social History Tobacco Use Smoking status: Never Smoker Smokeless tobacco: Never Used Vaping Use Vaping Use: Never used Substance Use Topics Alcohol use: Not Currently Comment: very rarely, none for one year 05/25/20 Drug use: No Comment: ria matthew for drug/alcohol abuse in the past. Current Outpatient Medications Medication Sig Dispense Refill cholecalciferol (VITAMIN D-3) 400 unit tab Take 5 tablets by mouth once daily. 150 tablet 2 predniSONE (DELTASONE) 5 mg tablet PO. 8 tablets daily X 7 days, then taper by one tablet once per week until gone. This is an 8 week long taper. 252 tablet 0 levothyroxine (SYNTHROID) 25 mcg tablet Take 1 tablet by mouth DAILY (6 AM). 90 tablet 3 Norethindrone Acet-Ethinyl Est (,) 1-20 mg-mcg per tablet Take one active pill continuously x 3 months - discard inactive pills 4 Package 4 potassium chloride (KLOR-CON 10) 10 mEq tablet Take 1 tablet by mouth once daily. 90 tablet 5 Multivitamin capsule Take 1 capsule by mouth once daily. No current facility-administered medications for this visit. ALLERGIES Allergen Reactions Adhesive Tape (Deja* Rash Convatec waffer tape collar Adhesive- (most adhesive tape causes rash) tolerates versaderm in IV securement kit Humira [Adalimumab] Intolerance Iron Intolerance per pt- can take, but only very small dose. (IV Iron only causes issues.) Remicade [Inflixima* Shortness of Breath Vancomycin Rash Per Dr. Asad Garcia to Allergy List - Rash No physical exam performed due to telephone encounter. REVIEWED ITEMS Labs: Component Latest Ref Rng & Units 06/04/2021 WBC 3.70 - 11.00 k/uL 21.67 (H) RBC 3.90 - 5.20 m/uL 6.88 (H) Hemoglobin 11.5 - 15.5 g/dL 19.8 (H) Hematocrit 36.0 - 46.0 % 59.8 (H) MCV 80.0 - 100.0 fL 86.9 MCH 26.0 - 34.0 pg 28.8 MCHC 30.5 - 36.0 g/dL 33.1 RDW-CV 11.5 - 15.0 % 15.4 (H) Platelet Count 150 - 400 k/uL 405 (H) MPV 9.0 - 12.7 fL 9.4 NRBC /100 WBC 0.0 Absolute nRBC <0.01 k/uL <0.01 Neut% % 76.0 Abs Neut (ANC) 1.45 - 7.50 k/uL 16.47 (H) Lymph% % 8.0 Abs Lymph 1.00 - 4.00 k/uL 1.73 [place]% % 7.0 Abs [place] <0.87 k/uL 1.52 (H) Eosin% % 1.0 Abs Eosin <0.46 k/uL 0.22 Baso% % 0.0 Abs Baso <0.11 k/uL 0.00 [place]% % 1.0 Myelo% % 7.0 Left Shift Present Platelet Estimate Increased Red Cell Morph Unremarkable DTYPE Manual Protein, Total 6.3 - 8.0 g/dL 9.2 (H) Albumin 3.9 - 4.9 g/dL 5.0 (H) Calcium 8.5 - 10.2 mg/dL 9.9 Bilirubin, Total 0.2 - 1.3 mg/dL 0.8 Alkaline Phosphatase 34 - 123 U/L 114 AST 13 - 35 U/L 16 ALT 7 - 38 U/L 18 Glucose 74 - 99 mg/dL 112 (H) BUN 7 - 21 mg/dL 29 (H) Creatinine 0.58 - 0.96 mg/dL 1.96 (H) Sodium 136 - 144 mmol/L 134 (L) Potassium 3.7 - 5.1 mmol/L 3.9 Chloride 97 - 105 mmol/L 90 (L) CO2 22 - 30 mmol/L 24 Anion Gap 9 - 18 mmol/L 20 (H) eGFR >=60 mL/min/1.73m 34 (L) TSH 0.270 - 4.200 mIU/L 2.490 Component Latest Ref Rng & Units 05/27/2021 Protein, Total 6.3 - 8.0 g/dL 6.4 Albumin 3.9 - 4.9 g/dL 3.9 Calcium 8.5 - 10.2 mg/dL 8.5 Bilirubin, Total 0.2 - 1.3 mg/dL 0.3 Alkaline Phosphatase 34 - 123 U/L 81 AST 13 - 35 U/L 15 ALT 7 - 38 U/L 16 Glucose 74 - 99 mg/dL 93 BUN 7 - 21 mg/dL 18 Creatinine 0.58 - 0.96 mg/dL 0.96 Sodium 136 - 144 mmol/L 134 (L) Potassium 3.7 - 5.1 mmol/L 2.9 (L) Chloride 97 - 105 mmol/L 97 CO2 22 - 30 mmol/L 26 Anion Gap 9 - 18 mmol/L 11 eGFR >=60 mL/min/1.73m 80 TB Nil <=8.00 IU/mL 0.00 TB1 Ag minus Nil <0.35 IU/mL 0.00 TB2 Ag minus Nil <0.35 IU/mL 0.00 TB Result Negative Mitogen minus Nil >=0.50 IU/mL 8.58 Bilirubin, Conjug <0.2 mg/dL <0.2 Vitamin D 25 Hydroxy 31.0 - 80.0 ng/mL 23.1 (L) CRP <0.9 mg/dL <0.3 Vitamin B12 232-1,245 pg/mL 543 CTe (04/2021): IMPRESSION: 1. Postoperative changes status post total proctocolectomy. Equivocal mild enhancement of small bowel loops within the lower abdomen may represent active inflammation of small bowel related to Crohn's disease. 2. There are several areas of narrowing within the small bowel which could be related to peristalsis versus stricturing. No evidence of obstruction. ASSESSMENT (as copied and updated from my 09/2019 note and reflects medical decision making today): 35 yo female with longstanding Crohn's- colonic, perianal, ileal and jejunal disease. She is S/P 4 resections (2003, 2006, 2010 and 06/2014) resulting in proctocolectomy and resections of segments of ileum and jejunum. She was on Stelara from 04/2017 to 03/2021- did very well clinically on this but over the past year she developed progressive side effects of voice hoarseness and more recently enlarged lymph nodes in her neck after each Stelara injection (had LN biopsy which came back benign). Based on this plan is to switch to Entyvio but we are still waiting for insurance approval. She is currently on a very slow prednisone taper (2.5 mg per week). In addition she recently had a viral gastroenteritis from which she is recovering. She has not had ileoscopy in a while- she is concerned about risk of perforation as 2 family members have had this complication. Health maintenance: - Vaccines- she had COVID + booster, Tdap (2019), Pneumovax (2010) and HBV (2019) - Skin- has been following regularly with Dermatology- advised that she can go 2 years [facility] - Bones- has been on vit D at 2,000 units- level was low so we discussed increasing to 5,000 units per day Other issues: - h/o papillary thyroid CA PLAN: 1. Continue to push hydration- she is using diluted Gatorade + salt and also an ORS 2. Repeat labs later this week to follow up on abnormal labs 3. Continue prednisone taper by 2.5 mg increments 4. Start Entyvio soon- waiting for insurance so will have biologic navigator check on this 5. F/U with SHASTA [place] in 2-3 months 6. Discuss follow up testing- ideally ileoscopy but she has some hesitancy about this I spent 25 minutes in the telephone visit with >50% of the time spent in counseling and/or coordination of care. Darin Cormier MD June 06, 2021 4:29 PM documented in this encounterPark[facility]02-[facility] History of Past illness Narrative* Problem Noted Date Resolved Date Nontoxic single thyroid nodule 04/29/2020 0 08/05/2020 Hyponatremia 11/05/2016 03/11/2019 Overview: Hypovolemic hyponatremia Baseline sodium since 07/2016 124, previous baseline normal Last Assessment & Plan: PLAN: - Trend BMP ELPIDIO (acute kidney injury) 11/05/20162018 Overview: Non-oliguric Baseline SCr 1.2-1.4 FENa intrinsic Renal US (11/05) no hydronephrosis Last Assessment & Plan: PLAN: - Strict I&O's. Trend BMP. UTI (urinary tract infection) 11/05/2016 Overview: Complicated cystitis in setting of ELPIDIO Treated with bactrim and fluconazole as outpatient 11/02. Switched to ceftriaxone in ED (11/04-11/05). UCx (11/01) with victor-sensitive E coli and enterococcus Last Assessment & Plan: PLAN: - Complete antibiotic course today Postcoital and contact bleeding 11/02/2016 03/11/2019 Pelvic pain in female 11/02/2016 03/11/2019 Calculus of gallbladder with chronic cholecystitis without obstruction 04/14/2016 03/11/2019 Hemorrhagic ovarian cyst 06/18/2015 019 PCB (post coital bleeding) 06/09/201509/14 Tachycardia 06/30/2014 04/24/2016 Overview: states she takes cardizem at home on a PRN basis. currently H/H low. denies any dizziness or lightheaded with ambulating. continue to monitor.. ordered cardizem Post-op pain 06/30/2014 04/24/2016 Overview: IV narcotics with transition to oral pain meds DVT (deep venous thrombosis) 07/16/2013 Overview: Complained of pain at RUE where midline placed US UE with DVT in axillary vein with superficial thrombophlebitis in axillary and basilic vein. Midline in basilic vein - Hep gtt, transition to lovenox this AM for teaching and discharge on lovenox - > coumadin bridge, PCP Dr Katlyn Bush to follow up INRs - Per VM: anticoagulation x24 hrs then can pull midline out, to continue anticoagulation for 3 months at least Prophylactic measure 06/06/2013 04/24/2016 Overview: Heparin SC BID Abdominal pain, Nausea, and Vomiting 06/06/2013 09/14/2016 Overview: Treat UTI Consider CTE for CD complications Leukocytosis 06/06/2013 04/24/2016 Overview: afebrile, WBC improving, continue to monitor Hypernatremia 06/06/2013 06/07/2013 Overview: Na 154 on admission. Likely 2/2 Vomiting FW deficit calculated to be1.8L Plan: D5W @75ml/hr x30 hrs Follow Na q4h Hypokalemia 05/18/2012 09/14/2016 Overview: 2/2 to dehydration, emesis. Plan: Replete as needed Back pain 05/15/2012 04/24/2016 Overview: Acute onset, severe pain and muscle spasm. Pain medicine consulted and recommendations followed. Tizanidine 2mg q 6hrly Still complaining of spasm when the effect of the tizadine wears off, just before the next dose Lidoderm patch, neurontin 200 mg tid Oxycodone liquid 5-10 mg q 4 hrly prn (less use) SUMMARY 05/15/2012 04/24/2016 Overview: 27 year old female with h/o extensive Crohn disease s/p multiple surgeries most recently an exploratory lap and creation of a loop ileostomy (02/2012), on Stelara since with relatively well controlled symptoms who is admitted from [facility] ED with nausea, vomiting, abdominal painx 1 day Perianal abscess 09/04/2011 04/24/2016 Regional enteritis of small intestine 06/08/2010 05/21/2012 Anemia 04/24/2016 Overview: offered oral iron to patient and was told she could not tolerate. will hold on transfusion today documented as of this encounter (statuses as of 06/07/2021) [facility] History of Past illness Narrative* Problem Noted Date Resolved Date Nontoxic single thyroid nodule 04/29/2020 0 08/05/2020 Hyponatremia 11/05/2016 03/11/2019 Overview: Hypovolemic hyponatremia Baseline sodium since 07/2016 124, previous baseline normal Last Assessment & Plan: PLAN: - Trend BMP ELPIDIO (acute kidney injury) 11/05/20162018 Overview: Non-oliguric Baseline SCr 1.2-1.4 FENa intrinsic Renal US (11/05) no hydronephrosis Last Assessment & Plan: PLAN: - Strict I&O's. Trend BMP. UTI (urinary tract infection) 11/05/2016 Overview: Complicated cystitis in setting of ELPIDIO Treated with bactrim and fluconazole as outpatient 11/02. Switched to ceftriaxone in ED (11/04-11/05). UCx (11/01) with victor-sensitive E coli and enterococcus Last Assessment & Plan: PLAN: - Complete antibiotic course today Postcoital and contact bleeding 11/02/2016 03/11/2019 Pelvic pain in female 11/02/2016 03/11/2019 Calculus of gallbladder with chronic cholecystitis without obstruction 04/14/2016 03/11/2019 Hemorrhagic ovarian cyst 06/18/2015 019 PCB (post coital bleeding) 06/09/201509/14 Tachycardia 06/30/2014 04/24/2016 Overview: states she takes cardizem at home on a PRN basis. currently H/H low. denies any dizziness or lightheaded with ambulating. continue to monitor.. ordered cardizem Post-op pain 06/30/2014 04/24/2016 Overview: IV narcotics with transition to oral pain meds DVT (deep venous thrombosis) 07/16/2013 Overview: Complained of pain at RUE where midline placed US UE with DVT in axillary vein with superficial thrombophlebitis in axillary and basilic vein. Midline in basilic vein - Hep gtt, transition to lovenox this AM for teaching and discharge on lovenox - > coumadin bridge, PCP Dr Katlyn Bush to follow up INRs - Per VM: anticoagulation x24 hrs then can pull midline out, to continue anticoagulation for 3 months at least Prophylactic measure 06/06/2013 04/24/2016 Overview: Heparin SC BID Abdominal pain, Nausea, and Vomiting 06/06/2013 09/14/2016 Overview: Treat UTI Consider CTE for CD complications Leukocytosis 06/06/2013 04/24/2016 Overview: afebrile, WBC improving, continue to monitor Hypernatremia 06/06/2013 06/07/2013 Overview: Na 154 on admission. Likely 2/2 Vomiting FW deficit calculated to be1.8L Plan: D5W @75ml/hr x30 hrs Follow Na q4h Hypokalemia 05/18/2012 09/14/2016 Overview: 2/2 to dehydration, emesis. Plan: Replete as needed Back pain 05/15/2012 04/24/2016 Overview: Acute onset, severe pain and muscle spasm. Pain medicine consulted and recommendations followed. Tizanidine 2mg q 6hrly Still complaining of spasm when the effect of the tizadine wears off, just before the next dose Lidoderm patch, neurontin 200 mg tid Oxycodone liquid 5-10 mg q 4 hrly prn (less use) SUMMARY 05/15/2012 04/24/2016 Overview: 27 year old female with h/o extensive Crohn disease s/p multiple surgeries most recently an exploratory lap and creation of a loop ileostomy (02/2012), on Stelara since '13 with relatively well controlled symptoms who is admitted from [facility] ED with nausea, vomiting, abdominal painx 1 day Perianal abscess 09/04/2011 04/24/2016 Regional enteritis of small intestine 06/08/2010 05/21/2012 Anemia 04/24/2016 Overview: offered oral iron to patient and was told she could not tolerate. will hold on transfusion today documented as of this encounter (statuses as of 06/07/2021) [facility] of Past illness Narrative* Problem Noted Date Resolved Date Nontoxic single thyroid nodule 04/29/2020 0 08/05/2020 Hyponatremia 11/05/2016 03/11/2019 Overview: Hypovolemic hyponatremia Baseline sodium since 07/2016 124, previous baseline normal Last Assessment & Plan: PLAN: - Trend BMP ELPIDIO (acute kidney injury) 11/05/20162018 Overview: Non-oliguric Baseline SCr 1.2-1.4 FENa intrinsic Renal US (11/05) no hydronephrosis Last Assessment & Plan: PLAN: - Strict I&O's. Trend BMP. UTI (urinary tract infection) 11/05/2016 Overview: Complicated cystitis in setting of ELPIDIO Treated with bactrim and fluconazole as outpatient 11/02. Switched to ceftriaxone in ED (11/04-11/05). UCx (11/01) with victor-sensitive E coli and enterococcus Last Assessment & Plan: PLAN: - Complete antibiotic course today Postcoital and contact bleeding 11/02/2016 03/11/2019 Pelvic pain in female 11/02/2016 03/11/2019 Calculus of gallbladder with chronic cholecystitis without obstruction 04/14/2016 03/11/2019 Hemorrhagic ovarian cyst 06/18/2015 019 PCB (post coital bleeding) 06/09/201509/14 Tachycardia 06/30/2014 04/24/2016 Overview: states she takes cardizem at home on a PRN basis. currently H/H low. denies any dizziness or lightheaded with ambulating. continue to monitor.. ordered cardizem Post-op pain 06/30/2014 04/24/2016 Overview: IV narcotics with transition to oral pain meds DVT (deep venous thrombosis) 07/16/2013 Overview: Complained of pain at RUE where midline placed US UE with DVT in axillary vein with superficial thrombophlebitis in axillary and basilic vein. Midline in basilic vein - Hep gtt, transition to lovenox this AM for teaching and discharge on lovenox - > coumadin bridge, PCP Dr Katlyn Bush to follow up INRs - Per VM: anticoagulation x24 hrs then can pull midline out, to continue anticoagulation for 3 months at least Prophylactic measure 06/06/2013 04/24/2016 Overview: Heparin SC BID Abdominal pain, Nausea, and Vomiting 06/06/2013 09/14/2016 Overview: Treat UTI Consider CTE for CD complications Leukocytosis 06/06/2013 04/24/2016 Overview: afebrile, WBC improving, continue to monitor Hypernatremia 06/06/2013 06/07/2013 Overview: Na 154 on admission. Likely 2/2 Vomiting FW deficit calculated to be1.8L Plan: D5W @75ml/hr x30 hrs Follow Na q4h Hypokalemia 05/18/2012 09/14/2016 Overview: 2/2 to dehydration, emesis. Plan: Replete as needed Back pain 05/15/2012 04/24/2016 Overview: Acute onset, severe pain and muscle spasm. Pain medicine consulted and recommendations followed. Tizanidine 2mg q 6hrly Still complaining of spasm when the effect of the tizadine wears off, just before the next dose Lidoderm patch, neurontin 200 mg tid Oxycodone liquid 5-10 mg q 4 hrly prn (less use) SUMMARY 05/15/2012 04/24/2016 Overview: 27 year old female with h/o extensive Crohn disease s/p multiple surgeries most recently an exploratory lap and creation of a loop ileostomy (02/2012), on Stelara since '13 with relatively well controlled symptoms who is admitted from [facility] ED with nausea, vomiting, abdominal painx 1 day Perianal abscess 09/04/2011 04/24/2016 Regional enteritis of small intestine 06/08/2010 05/21/2012 Anemia 04/24/2016 Overview: offered oral iron to patient and was told she could not tolerate. will hold on transfusion today documented as of this encounter (statuses as of 08/10/2021) [facility] of Past illness Narrative* Problem Noted Date Resolved Date Nontoxic single thyroid nodule 04/29/2020 0 08/05/2020 Hyponatremia 11/05/2016 03/11/2019 Overview: Hypovolemic hyponatremia Baseline sodium since 07/2016 124, previous baseline normal Last Assessment & Plan: PLAN: - Trend BMP ELPIDIO (acute kidney injury) 11/05/20162018 Overview: Non-oliguric Baseline SCr 1.2-1.4 FENa intrinsic Renal US (11/05) no hydronephrosis Last Assessment & Plan: PLAN: - Strict I&O's. Trend BMP. UTI (urinary tract infection) 11/05/2016 Overview: Complicated cystitis in setting of ELPIDIO Treated with bactrim and fluconazole as outpatient 11/02. Switched to ceftriaxone in ED (11/04-11/05). UCx (11/01) with victor-sensitive E coli and enterococcus Last Assessment & Plan: PLAN: - Complete antibiotic course today Postcoital and contact bleeding 11/02/2016 03/11/2019 Pelvic pain in female 11/02/2016 03/11/2019 Calculus of gallbladder with chronic cholecystitis without obstruction 04/14/2016 03/11/2019 Hemorrhagic ovarian cyst 06/18/2015 019 PCB (post coital bleeding) 06/09/201509/14 Tachycardia 06/30/2014 04/24/2016 Overview: states she takes cardizem at home on a PRN basis. currently H/H low. denies any dizziness or lightheaded with ambulating. continue to monitor.. ordered cardizem Post-op pain 06/30/2014 04/24/2016 Overview: IV narcotics with transition to oral pain meds DVT (deep venous thrombosis) 07/16/2013 Overview: Complained of pain at RUE where midline placed US UE with DVT in axillary vein with superficial thrombophlebitis in axillary and basilic vein. Midline in basilic vein - Hep gtt, transition to lovenox this AM for teaching and discharge on lovenox - > coumadin bridge, PCP Dr Katlyn Bush to follow up INRs - Per VM: anticoagulation x24 hrs then can pull midline out, to continue anticoagulation for 3 months at least Prophylactic measure 06/06/2013 04/24/2016 Overview: Heparin SC BID Abdominal pain, Nausea, and Vomiting 06/06/2013 09/14/2016 Overview: Treat UTI Consider CTE for CD complications Leukocytosis 06/06/2013 04/24/2016 Overview: afebrile, WBC improving, continue to monitor Hypernatremia 06/06/2013 06/07/2013 Overview: Na 154 on admission. Likely 2/2 Vomiting FW deficit calculated to be1.8L Plan: D5W @75ml/hr x30 hrs Follow Na q4h Hypokalemia 05/18/2012 09/14/2016 Overview: 2/2 to dehydration, emesis. Plan: Replete as needed Back pain 05/15/2012 04/24/2016 Overview: Acute onset, severe pain and muscle spasm. Pain medicine consulted and recommendations followed. Tizanidine 2mg q 6hrly Still complaining of spasm when the effect of the tizadine wears off, just before the next dose Lidoderm patch, neurontin 200 mg tid Oxycodone liquid 5-10 mg q 4 hrly prn (less use) SUMMARY 05/15/2012 04/24/2016 Overview: 27 year old female with h/o extensive Crohn disease s/p multiple surgeries most recently an exploratory lap and creation of a loop ileostomy (02/2012), on Stelara since with relatively well controlled symptoms who is admitted from [facility] ED with nausea, vomiting, abdominal painx 1 day Perianal abscess 09/04/2011 04/24/2016 Regional enteritis of small intestine 06/08/2010 05/21/2012 Anemia 04/24/2016 Overview: offered oral iron to patient and was told she could not tolerate. will hold on transfusion today documented as of this encounter (statuses as of 09/26/2021) [facility]02-18-2021 History of Past illness Narrative* Problem Noted Date Resolved Date Nontoxic single thyroid nodule 04/29/2020 0 08/05/2020 Hyponatremia 11/05/2016 03/11/2019 Overview: Hypovolemic hyponatremia Baseline sodium since 07/2016 124, previous baseline normal Last Assessment & Plan: PLAN: - Trend BMP ELPIDIO (acute kidney injury) 11/05/20162018 Overview: Non-oliguric Baseline SCr 1.2-1.4 FENa intrinsic Renal US (11/05) no hydronephrosis Last Assessment & Plan: PLAN: - Strict I&O's. Trend BMP. UTI (urinary tract infection) 11/05/2016 Overview: Complicated cystitis in setting of ELPIDIO Treated with bactrim and fluconazole as outpatient 11/02. Switched to ceftriaxone in ED (11/04-11/05). UCx (11/01) with victor-sensitive E coli and enterococcus Last Assessment & Plan: PLAN: - Complete antibiotic course today Postcoital and contact bleeding 11/02/2016 03/11/2019 Pelvic pain in female 11/02/2016 03/11/2019 Calculus of gallbladder with chronic cholecystitis without obstruction 04/14/2016 03/11/2019 Hemorrhagic ovarian cyst 06/18/2015 019 PCB (post coital bleeding) 06/09/201509/14 Tachycardia 06/30/2014 04/24/2016 Overview: states she takes cardizem at home on a PRN basis. currently H/H low. denies any dizziness or lightheaded with ambulating. continue to monitor.. ordered cardizem Post-op pain 06/30/2014 04/24/2016 Overview: IV narcotics with transition to oral pain meds DVT (deep venous thrombosis) 07/16/2013 Overview: Complained of pain at RUE where midline placed US UE with DVT in axillary vein with superficial thrombophlebitis in axillary and basilic vein. Midline in basilic vein - Hep gtt, transition to lovenox this AM for teaching and discharge on lovenox - > coumadin bridge, PCP Dr Katlyn Bush to follow up INRs - Per VM: anticoagulation x24 hrs then can pull midline out, to continue anticoagulation for 3 months at least Prophylactic measure 06/06/2013 04/24/2016 Overview: Heparin SC BID Abdominal pain, Nausea, and Vomiting 06/06/2013 09/14/2016 Overview: Treat UTI Consider CTE for CD complications Leukocytosis 06/06/2013 04/24/2016 Overview: afebrile, WBC improving, continue to monitor Hypernatremia 06/06/2013 06/07/2013 Overview: Na 154 on admission. Likely 2/2 Vomiting FW deficit calculated to be1.8L Plan: D5W @75ml/hr x30 hrs Follow Na q4h Hypokalemia 05/18/2012 09/14/2016 Overview: 2/2 to dehydration, emesis. Plan: Replete as needed Back pain 05/15/2012 04/24/2016 Overview: Acute onset, severe pain and muscle spasm. Pain medicine consulted and recommendations followed. Tizanidine 2mg q 6hrly Still complaining of spasm when the effect of the tizadine wears off, just before the next dose Lidoderm patch, neurontin 200 mg tid Oxycodone liquid 5-10 mg q 4 hrly prn (less use) SUMMARY 05/15/2012 04/24/2016 Overview: 27 year old female with h/o extensive Crohn disease s/p multiple surgeries most recently an exploratory lap and creation of a loop ileostomy (02/2012), on Stelara since with relatively well controlled symptoms who is admitted from [facility] ED with nausea, vomiting, abdominal painx 1 day Perianal abscess 09/04/2011 04/24/2016 Regional enteritis of small intestine 06/08/2010 05/21/2012 Anemia 04/24/2016 Overview: offered oral iron to patient and was told she could not tolerate. will hold on transfusion today documented as of this encounter (statuses as of 09/29/2021) [facility]02-18-2021 History of Past illness Narrative* Problem Noted Date Resolved Date Nontoxic single thyroid nodule 04/29/2020 0 08/05/2020 Hyponatremia 11/05/2016 03/11/2019 Overview: Hypovolemic hyponatremia Baseline sodium since 07/2016 124, previous baseline normal Last Assessment & Plan: PLAN: - Trend BMP ELPIDIO (acute kidney injury) 11/05/20162018 Overview: Non-oliguric Baseline SCr 1.2-1.4 FENa intrinsic Renal US (11/05) no hydronephrosis Last Assessment & Plan: PLAN: - Strict I&O's. Trend BMP. UTI (urinary tract infection) 11/05/2016 Overview: Complicated cystitis in setting of ELPIDIO Treated with bactrim and fluconazole as outpatient 11/02. Switched to ceftriaxone in ED (11/04-11/05). UCx (11/01) with victor-sensitive E coli and enterococcus Last Assessment & Plan: PLAN: - Complete antibiotic course today Postcoital and contact bleeding 11/02/2016 03/11/2019 Pelvic pain in female 11/02/2016 03/11/2019 Calculus of gallbladder with chronic cholecystitis without obstruction 04/14/2016 03/11/2019 Hemorrhagic ovarian cyst 06/18/2015 019 PCB (post coital bleeding) 06/09/201509/14 Tachycardia 06/30/2014 04/24/2016 Overview: states she takes cardizem at home on a PRN basis. currently H/H low. denies any dizziness or lightheaded with ambulating. continue to monitor.. ordered cardizem Post-op pain 06/30/2014 04/24/2016 Overview: IV narcotics with transition to oral pain meds DVT (deep venous thrombosis) 07/16/2013 Overview: Complained of pain at RUE where midline placed US UE with DVT in axillary vein with superficial thrombophlebitis in axillary and basilic vein. Midline in basilic vein - Hep gtt, transition to lovenox this AM for teaching and discharge on lovenox - > coumadin bridge, PCP Dr Katlyn Bush to follow up INRs - Per VM: anticoagulation x24 hrs then can pull midline out, to continue anticoagulation for 3 months at least Prophylactic measure 06/06/2013 04/24/2016 Overview: Heparin SC BID Abdominal pain, Nausea, and Vomiting 06/06/2013 09/14/2016 Overview: Treat UTI Consider CTE for CD complications Leukocytosis 06/06/2013 04/24/2016 Overview: afebrile, WBC improving, continue to monitor Hypernatremia 06/06/2013 06/07/2013 Overview: Na 154 on admission. Likely 2/2 Vomiting FW deficit calculated to be1.8L Plan: D5W @75ml/hr x30 hrs Follow Na q4h Hypokalemia 05/18/2012 09/14/2016 Overview: 2/2 to dehydration, emesis. Plan: Replete as needed Back pain 05/15/2012 04/24/2016 Overview: Acute onset, severe pain and muscle spasm. Pain medicine consulted and recommendations followed. Tizanidine 2mg q 6hrly Still complaining of spasm when the effect of the tizadine wears off, just before the next dose Lidoderm patch, neurontin 200 mg tid Oxycodone liquid 5-10 mg q 4 hrly prn (less use) SUMMARY 05/15/2012 04/24/2016 Overview: 27 year old female with h/o extensive Crohn disease s/p multiple surgeries most recently an exploratory lap and creation of a loop ileostomy (02/2012), on Stelara since with relatively well controlled symptoms who is admitted from [facility] ED with nausea, vomiting, abdominal painx 1 day Perianal abscess 09/04/2011 04/24/2016 Regional enteritis of small intestine 06/08/2010 05/21/2012 Anemia 04/24/2016 Overview: offered oral iron to patient and was told she could not tolerate. will hold on transfusion today documented as of this encounter (statuses as of 10/17/2021) [facility]02-18-2021 History of Past illness Narrative* Problem Noted Date Resolved Date Nontoxic single thyroid nodule 04/29/2020 0 08/05/2020 Hyponatremia 11/05/2016 03/11/2019 Overview: Hypovolemic hyponatremia Baseline sodium since 07/2016 124, previous baseline normal Last Assessment & Plan: PLAN: - Trend BMP ELPIDIO (acute kidney injury) 11/05/20162018 Overview: Non-oliguric Baseline SCr 1.2-1.4 FENa intrinsic Renal US (11/05) no hydronephrosis Last Assessment & Plan: PLAN: - Strict I&O's. Trend BMP. UTI (urinary tract infection) 11/05/2016 Overview: Complicated cystitis in setting of ELPIDIO Treated with bactrim and fluconazole as outpatient 11/02. Switched to ceftriaxone in ED (11/04-11/05). UCx (11/01) with victor-sensitive E coli and enterococcus Last Assessment & Plan: PLAN: - Complete antibiotic course today Postcoital and contact bleeding 11/02/2016 03/11/2019 Pelvic pain in female 11/02/2016 03/11/2019 Calculus of gallbladder with chronic cholecystitis without obstruction 04/14/2016 03/11/2019 Hemorrhagic ovarian cyst 06/18/2015 019 PCB (post coital bleeding) 06/09/201509/14 Tachycardia 06/30/2014 04/24/2016 Overview: states she takes cardizem at home on a PRN basis. currently H/H low. denies any dizziness or lightheaded with ambulating. continue to monitor.. ordered cardizem Post-op pain 06/30/2014 04/24/2016 Overview: IV narcotics with transition to oral pain meds DVT (deep venous thrombosis) 07/16/2013 Overview: Complained of pain at RUE where midline placed US UE with DVT in axillary vein with superficial thrombophlebitis in axillary and basilic vein. Midline in basilic vein - Hep gtt, transition to lovenox this AM for teaching and discharge on lovenox - > coumadin bridge, PCP Dr Katlyn Bush to follow up INRs - Per VM: anticoagulation x24 hrs then can pull midline out, to continue anticoagulation for 3 months at least Prophylactic measure 06/06/2013 04/24/2016 Overview: Heparin SC BID Abdominal pain, Nausea, and Vomiting 06/06/2013 09/14/2016 Overview: Treat UTI Consider CTE for CD complications Leukocytosis 06/06/2013 04/24/2016 Overview: afebrile, WBC improving, continue to monitor Hypernatremia 06/06/2013 06/07/2013 Overview: Na 154 on admission. Likely 2/2 Vomiting FW deficit calculated to be1.8L Plan: D5W @75ml/hr x30 hrs Follow Na q4h Hypokalemia 05/18/2012 09/14/2016 Overview: 2/2 to dehydration, emesis. Plan: Replete as needed Back pain 05/15/2012 04/24/2016 Overview: Acute onset, severe pain and muscle spasm. Pain medicine consulted and recommendations followed. Tizanidine 2mg q 6hrly Still complaining of spasm when the effect of the tizadine wears off, just before the next dose Lidoderm patch, neurontin 200 mg tid Oxycodone liquid 5-10 mg q 4 hrly prn (less use) SUMMARY 05/15/2012 04/24/2016 Overview: 27 year old female with h/o extensive Crohn disease s/p multiple surgeries most recently an exploratory lap and creation of a loop ileostomy (02/2012), on Stelara since '13 with relatively well controlled symptoms who is admitted from [facility] ED with nausea, vomiting, abdominal painx 1 day Perianal abscess 09/04/2011 04/24/2016 Regional enteritis of small intestine 06/08/2010 05/21/2012 Anemia 04/24/2016 Overview: offered oral iron to patient and was told she could not tolerate. will hold on transfusion today documented as of this encounter (statuses as of 10/26/2021) [facility]02-[facility]21 History of Past illness Narrative* Problem Noted Date Resolved Date Nontoxic single thyroid nodule 04/29/2020 0 08/05/2020 Hyponatremia 11/05/2016 03/11/2019 Overview: Hypovolemic hyponatremia Baseline sodium since 07/2016 124, previous baseline normal Last Assessment & Plan: PLAN: - Trend BMP ELPIDIO (acute kidney injury) 11/05/20162018 Overview: Non-oliguric Baseline SCr 1.2-1.4 FENa intrinsic Renal US (11/05) no hydronephrosis Last Assessment & Plan: PLAN: - Strict I&O's. Trend BMP. UTI (urinary tract infection) 11/05/2016 Overview: Complicated cystitis in setting of ELPIDIO Treated with bactrim and fluconazole as outpatient 11/02. Switched to ceftriaxone in ED (11/04-11/05). UCx (11/01) with victor-sensitive E coli and enterococcus Last Assessment & Plan: PLAN: - Complete antibiotic course today Postcoital and contact bleeding 11/02/2016 03/11/2019 Pelvic pain in female 11/02/2016 03/11/2019 Calculus of gallbladder with chronic cholecystitis without obstruction 04/14/2016 03/11/2019 Hemorrhagic ovarian cyst 06/18/2015 019 PCB (post coital bleeding) 06/09/201509/14 Tachycardia 06/30/2014 04/24/2016 Overview: states she takes cardizem at home on a PRN basis. currently H/H low. denies any dizziness or lightheaded with ambulating. continue to monitor.. ordered cardizem Post-op pain 06/30/2014 04/24/2016 Overview: IV narcotics with transition to oral pain meds DVT (deep venous thrombosis) 07/16/2013 Overview: Complained of pain at RUE where midline placed US UE with DVT in axillary vein with superficial thrombophlebitis in axillary and basilic vein. Midline in basilic vein - Hep gtt, transition to lovenox this AM for teaching and discharge on lovenox - > coumadin bridge, PCP Dr Katlyn Bush to follow up INRs - Per VM: anticoagulation x24 hrs then can pull midline out, to continue anticoagulation for 3 months at least Prophylactic measure 06/06/2013 04/24/2016 Overview: Heparin SC BID Abdominal pain, Nausea, and Vomiting 06/06/2013 09/14/2016 Overview: Treat UTI Consider CTE for CD complications Leukocytosis 06/06/2013 04/24/2016 Overview: afebrile, WBC improving, continue to monitor Hypernatremia 06/06/2013 06/07/2013 Overview: Na 154 on admission. Likely 2/2 Vomiting FW deficit calculated to be1.8L Plan: D5W @75ml/hr x30 hrs Follow Na q4h Hypokalemia 05/18/2012 09/14/2016 Overview: 2/2 to dehydration, emesis. Plan: Replete as needed Back pain 05/15/2012 04/24/2016 Overview: Acute onset, severe pain and muscle spasm. Pain medicine consulted and recommendations followed. Tizanidine 2mg q 6hrly Still complaining of spasm when the effect of the tizadine wears off, just before the next dose Lidoderm patch, neurontin 200 mg tid Oxycodone liquid 5-10 mg q 4 hrly prn (less use) SUMMARY 05/15/2012 04/24/2016 Overview: 27 year old female with h/o extensive Crohn disease s/p multiple surgeries most recently an exploratory lap and creation of a loop ileostomy (02/2012), on Stelara since 14 with relatively well controlled symptoms who is admitted from [facility] ED with nausea, vomiting, abdominal painx 1 day Perianal abscess 09/04/2011 04/24/2016 Regional enteritis of small intestine 06/08/2010 05/21/2012 Anemia 04/24/2016 Overview: offered oral iron to patient and was told she could not tolerate. will hold on transfusion today documented as of this encounter (statuses as of 10/31/2021) [facility]02[facility]21 History of Past illness Narrative* Problem Noted Date Resolved Date Nontoxic single thyroid nodule 04/29/2020 0 08/05/2020 Hyponatremia 11/05/2016 03/11/2019 Overview: Hypovolemic hyponatremia Baseline sodium since 07/2016 124, previous baseline normal Last Assessment & Plan: PLAN: - Trend BMP ELPIDIO (acute kidney injury) 11/05/20162018 Overview: Non-oliguric Baseline SCr 1.2-1.4 FENa intrinsic Renal US (11/05) no hydronephrosis Last Assessment & Plan: PLAN: - Strict I&O's. Trend BMP. UTI (urinary tract infection) 11/05/2016 Overview: Complicated cystitis in setting of ELPIDIO Treated with bactrim and fluconazole as outpatient 11/02. Switched to ceftriaxone in ED (11/04-11/05). UCx (11/01) with victor-sensitive E coli and enterococcus Last Assessment & Plan: PLAN: - Complete antibiotic course today Postcoital and contact bleeding 11/02/2016 03/11/2019 Pelvic pain in female 11/02/2016 03/11/2019 Calculus of gallbladder with chronic cholecystitis without obstruction 04/14/2016 03/11/2019 Hemorrhagic ovarian cyst 06/18/2015 019 PCB (post coital bleeding) 06/09/201509/14 Tachycardia 06/30/2014 04/24/2016 Overview: states she takes cardizem at home on a PRN basis. currently H/H low. denies any dizziness or lightheaded with ambulating. continue to monitor.. ordered cardizem Post-op pain 06/30/2014 04/24/2016 Overview: IV narcotics with transition to oral pain meds DVT (deep venous thrombosis) 07/16/2013 Overview: Complained of pain at RUE where midline placed US UE with DVT in axillary vein with superficial thrombophlebitis in axillary and basilic vein. Midline in basilic vein - Hep gtt, transition to lovenox this AM for teaching and discharge on lovenox - > coumadin bridge, PCP Dr Katlyn Bush to follow up INRs - Per VM: anticoagulation x24 hrs then can pull midline out, to continue anticoagulation for 3 months at least Prophylactic measure 06/06/2013 04/24/2016 Overview: Heparin SC BID Abdominal pain, Nausea, and Vomiting 06/06/2013 09/14/2016 Overview: Treat UTI Consider CTE for CD complications Leukocytosis 06/06/2013 04/24/2016 Overview: afebrile, WBC improving, continue to monitor Hypernatremia 06/06/2013 06/07/2013 Overview: Na 154 on admission. Likely 2/2 Vomiting FW deficit calculated to be1.8L Plan: D5W @75ml/hr x30 hrs Follow Na q4h Hypokalemia 05/18/2012 09/14/2016 Overview: 2/2 to dehydration, emesis. Plan: Replete as needed Back pain 05/15/2012 04/24/2016 Overview: Acute onset, severe pain and muscle spasm. Pain medicine consulted and recommendations followed. Tizanidine 2mg q 6hrly Still complaining of spasm when the effect of the tizadine wears off, just before the next dose Lidoderm patch, neurontin 200 mg tid Oxycodone liquid 5-10 mg q 4 hrly prn (less use) SUMMARY 05/15/2012 04/24/2016 Overview: 27 year old female with h/o extensive Crohn disease s/p multiple surgeries most recently an exploratory lap and creation of a loop ileostomy (02/2012), on Stelara since '13 with relatively well controlled symptoms who is admitted from [facility] ED with nausea, vomiting, abdominal painx 1 day Perianal abscess 09/04/2011 04/24/2016 Regional enteritis of small intestine 06/08/2010 05/21/2012 Anemia 04/24/2016 Overview: offered oral iron to patient and was told she could not tolerate. will hold on transfusion today documented as of this encounter (statuses as of 01/18/2022) [facility]02[facility]21 History of Past illness Narrative* Problem Noted Date Resolved Date Nontoxic single thyroid nodule 04/29/2020 0 08/05/2020 Hyponatremia 11/05/2016 03/11/2019 Overview: Hypovolemic hyponatremia Baseline sodium since 07/2016 124, previous baseline normal Last Assessment & Plan: PLAN: - Trend BMP ELPIDIO (acute kidney injury) 11/05/20162018 Overview: Non-oliguric Baseline SCr 1.2-1.4 FENa intrinsic Renal US (11/05) no hydronephrosis Last Assessment & Plan: PLAN: - Strict I&O's. Trend BMP. UTI (urinary tract infection) 11/05/2016 Overview: Complicated cystitis in setting of ELPIDIO Treated with bactrim and fluconazole as outpatient 11/02. Switched to ceftriaxone in ED (11/04-11/05). UCx (11/01) with victor-sensitive E coli and enterococcus Last Assessment & Plan: PLAN: - Complete antibiotic course today Postcoital and contact bleeding 11/02/2016 03/11/2019 Pelvic pain in female 11/02/2016 03/11/2019 Calculus of gallbladder with chronic cholecystitis without obstruction 04/14/2016 03/11/2019 Hemorrhagic ovarian cyst 06/18/2015 019 PCB (post coital bleeding) 06/09/201509/14 Tachycardia 06/30/2014 04/24/2016 Overview: states she takes cardizem at home on a PRN basis. currently H/H low. denies any dizziness or lightheaded with ambulating. continue to monitor.. ordered cardizem Post-op pain 06/30/2014 04/24/2016 Overview: IV narcotics with transition to oral pain meds DVT (deep venous thrombosis) 07/16/2013 Overview: Complained of pain at RUE where midline placed US UE with DVT in axillary vein with superficial thrombophlebitis in axillary and basilic vein. Midline in basilic vein - Hep gtt, transition to lovenox this AM for teaching and discharge on lovenox - > coumadin bridge, PCP Dr Katlyn Bush to follow up INRs - Per VM: anticoagulation x24 hrs then can pull midline out, to continue anticoagulation for 3 months at least Prophylactic measure 06/06/2013 04/24/2016 Overview: Heparin SC BID Abdominal pain, Nausea, and Vomiting 06/06/2013 09/14/2016 Overview: Treat UTI Consider CTE for CD complications Leukocytosis 06/06/2013 04/24/2016 Overview: afebrile, WBC improving, continue to monitor Hypernatremia 06/06/2013 06/07/2013 Overview: Na 154 on admission. Likely 2/2 Vomiting FW deficit calculated to be1.8L Plan: D5W @75ml/hr x30 hrs Follow Na q4h Hypokalemia 05/18/2012 09/14/2016 Overview: 2/2 to dehydration, emesis. Plan: Replete as needed Back pain 05/15/2012 04/24/2016 Overview: Acute onset, severe pain and muscle spasm. Pain medicine consulted and recommendations followed. Tizanidine 2mg q 6hrly Still complaining of spasm when the effect of the tizadine wears off, just before the next dose Lidoderm patch, neurontin 200 mg tid Oxycodone liquid 5-10 mg q 4 hrly prn (less use) SUMMARY 05/15/2012 04/24/2016 Overview: 27 year old female with h/o extensive Crohn disease s/p multiple surgeries most recently an exploratory lap and creation of a loop ileostomy (02/2012), on Stelara since '13 with relatively well controlled symptoms who is admitted from [facility] ED with nausea, vomiting, abdominal painx 1 day Perianal abscess 09/04/2011 04/24/2016 Regional enteritis of small intestine 06/08/2010 05/21/2012 Anemia 04/24/2016 Overview: offered oral iron to patient and was told she could not tolerate. will hold on transfusion today documented as of this encounter (statuses as of 01/19/2022) [facility] History of Past illness Narrative* Problem Noted Date Diagnosed Date Resolved Date Nontoxic single thyroid nodule 04/29/2020 08/05/2020 Hyponatremia 11/05/2016 03/11/2019 Overview: Hypovolemic hyponatremia Baseline sodium since 07/2016 124, previous baseline normal Last Assessment & Plan: PLAN: - Trend BMP ELPIDIO (acute kidney injury) 11/05/2016 Overview: Non-oliguric Baseline SCr 1.2-1.4 FENa intrinsic Renal US (11/05) no hydronephrosis Last Assessment & Plan: PLAN: - Strict I&O's. Trend BMP. UTI (urinary tract infection) 11/05/2016 03/11/2019 Overview: Complicated cystitis in setting of ELPIDIO Treated with bactrim and fluconazole as outpatient 11/02. Switched to ceftriaxone in ED (11/04-11/05). UCx (11/01) with victor-sensitive E coli and enterococcus Last Assessment & Plan: PLAN: - Complete antibiotic course today Postcoital and contact bleeding 11/02/2016 03/11/2019 Pelvic pain in female 11/02/20162018 Calculus of gallbladder with chronic cholecystitis without obstruction 04/14/20162018 Hemorrhagic ovarian cyst 06/18/2015 PCB (post coital bleeding) 06/09/2015 0 09/14/2016 Tachycardia 06/30/2014 04/24/2016 Overview: states she takes cardizem at home on a PRN basis. currently H/H low. denies any dizziness or lightheaded with ambulating. continue to monitor.. ordered cardizem Post-op pain 06/30/2014 04/24/2016 Overview: IV narcotics with transition to oral pain meds DVT (deep venous thrombosis) 07/16/2013 04/24/2016 Overview: Complained of pain at RUE where midline placed US UE with DVT in axillary vein with superficial thrombophlebitis in axillary and basilic vein. Midline in basilic vein - Hep gtt, transition to lovenox this AM for teaching and discharge on lovenox - > coumadin bridge, PCP Dr Katlyn Bush to follow up INRs - Per VM: anticoagulation x24 hrs then can pull midline out, to continue anticoagulation for 3 months at least Prophylactic measure 06/06/2013 017 Overview: Heparin SC BID Abdominal pain, Nausea, and Vomiting 06/06/2013 09/14/2016 Overview: Treat UTI Consider CTE for CD complications Leukocytosis 06/06/2013 04/24/2016 Overview: afebrile, WBC improving, continue to monitor Hypernatremia 06/06/2013 06/07/2013 Overview: Na 154 on admission. Likely 2/2 Vomiting FW deficit calculated to be1.8L Plan: D5W @75ml/hr x30 hrs Follow Na q4h Hypokalemia 05/18/2012 09/14/2016 Overview: 2/2 to dehydration, emesis. Plan: Replete as needed Back pain 05/15/2012 04/24/2016 Overview: Acute onset, severe pain and muscle spasm. Pain medicine consulted and recommendations followed. Tizanidine 2mg q 6hrly Still complaining of spasm when the effect of the tizadine wears off, just before the next dose Lidoderm patch, neurontin 200 mg tid Oxycodone liquid 5-10 mg q 4 hrly prn (less use) SUMMARY 05/15/2012 04/24/2016 Overview: 27 year old female with h/o extensive Crohn disease s/p multiple surgeries most recently an exploratory lap and creation of a loop ileostomy (02/2012), on Stelara since with relatively well controlled symptoms who is admitted from [facility] ED with nausea, vomiting, abdominal painx 1 day Perianal abscess 09/04/2011 04/24/2016 Regional enteritis of small intestine 06/08/2010 05/21/2012 Anemia 04/24/2016 Overview: offered oral iron to patient and was told she could not tolerate. will hold on transfusion today documented as of this encounter (statuses as of 10/27/2022) [facility] History of Past illness Narrative* Problem Noted Date Diagnosed Date Resolved Date Nontoxic single thyroid nodule 04/29/2020 08/05/2020 Hyponatremia 11/05/2016 03/11/2019 Overview: Hypovolemic hyponatremia Baseline sodium since 07/2016 124, previous baseline normal Last Assessment & Plan: PLAN: - Trend BMP ELPIDIO (acute kidney injury) 11/05/2016 Overview: Non-oliguric Baseline SCr 1.2-1.4 FENa intrinsic Renal US (11/05) no hydronephrosis Last Assessment & Plan: PLAN: - Strict I&O's. Trend BMP. UTI (urinary tract infection) 11/05/2016 03/11/2019 Overview: Complicated cystitis in setting of ELPIDIO Treated with bactrim and fluconazole as outpatient 11/02. Switched to ceftriaxone in ED (11/04-11/05). UCx (11/01) with victor-sensitive E coli and enterococcus Last Assessment & Plan: PLAN: - Complete antibiotic course today Postcoital and contact bleeding 11/02/2016 03/11/2019 Pelvic pain in female 11/02/20162018 Calculus of gallbladder with chronic cholecystitis without obstruction 04/14/20162018 Hemorrhagic ovarian cyst 06/18/2015 PCB (post coital bleeding) 06/09/2015 0 09/14/2016 Tachycardia 06/30/2014 04/24/2016 Overview: states she takes cardizem at home on a PRN basis. currently H/H low. denies any dizziness or lightheaded with ambulating. continue to monitor.. ordered cardizem Post-op pain 06/30/2014 04/24/2016 Overview: IV narcotics with transition to oral pain meds DVT (deep venous thrombosis) 07/16/2013 04/24/2016 Overview: Complained of pain at RUE where midline placed US UE with DVT in axillary vein with superficial thrombophlebitis in axillary and basilic vein. Midline in basilic vein - Hep gtt, transition to lovenox this AM for teaching and discharge on lovenox - > coumadin bridge, PCP Dr Katlyn Bush to follow up INRs - Per VM: anticoagulation x24 hrs then can pull midline out, to continue anticoagulation for 3 months at least Prophylactic measure 06/06/2013 017 Overview: Heparin SC BID Abdominal pain, Nausea, and Vomiting 06/06/2013 09/14/2016 Overview: Treat UTI Consider CTE for CD complications Leukocytosis 06/06/2013 04/24/2016 Overview: afebrile, WBC improving, continue to monitor Hypernatremia 06/06/2013 06/07/2013 Overview: Na 154 on admission. Likely 2/2 Vomiting FW deficit calculated to be1.8L Plan: D5W @75ml/hr x30 hrs Follow Na q4h Hypokalemia 05/18/2012 09/14/2016 Overview: 2/2 to dehydration, emesis. Plan: Replete as needed Back pain 05/15/2012 04/24/2016 Overview: Acute onset, severe pain and muscle spasm. Pain medicine consulted and recommendations followed. Tizanidine 2mg q 6hrly Still complaining of spasm when the effect of the tizadine wears off, just before the next dose Lidoderm patch, neurontin 200 mg tid Oxycodone liquid 5-10 mg q 4 hrly prn (less use) SUMMARY 05/15/2012 04/24/2016 Overview: 27 year old female with h/o extensive Crohn disease s/p multiple surgeries most recently an exploratory lap and creation of a loop ileostomy (02/2012), on Stelara since '13 with relatively well controlled symptoms who is admitted from [facility] ED with nausea, vomiting, abdominal painx 1 day Perianal abscess 09/04/2011 04/24/2016 Regional enteritis of small intestine 06/08/2010 05/21/2012 Anemia 04/24/2016 Overview: offered oral iron to patient and was told she could not tolerate. will hold on transfusion today documented as of this encounter (statuses as of 05/29/2023) [facility] Procedure note* Lisy Barajas (Tech), Tech - 03/15/2020 12:30 PM EST Radiology Service Progress Note PATIENT NAME: Philippe Rg DATE OF SERVICE: March 15, 2020 TIME: 12:48 PM PATIENT IDENTITY VERIFICATION COMPLETED USING TWO (2) IDENTIFIERS: Name and Date of confirmedby patient verbally. FALL SCREENING: Has the patient had 2 falls in the last year or 1 fall with injury or currently using an Ambulatory Assistive Device (Walker, Cane, Wheelchair, Crutches, etc.)? No PATIENT GENDER DATA: Female. status: : No status: NO. PATIENT RELEVANT IMPLANT DATA REVIEWED: Not Applicable RADIOLOGY DEPARTMENT: Ultrasound PERIPHERAL IV DATA: Not applicable SIGNED BY: Estee Doty March 15, 2020 12:48 PM Radiology Service Progress Note PATIENT NAME: Philippe Rg DATE OF SERVICE: March 15, 2020 TIME: 12:48 PM PATIENT IDENTITY VERIFICATION COMPLETED USING TWO (2) IDENTIFIERS: Name and Date of confirmedby patient verbally. FALL SCREENING: Has the patient had 2 falls in the last year or 1 fall with injury or currently using an Ambulatory Assistive Device (Walker, Cane, Wheelchair, Crutches, etc.)? No PATIENT GENDER DATA: Female. status: : No status: NO. PATIENT RELEVANT IMPLANT DATA REVIEWED: Not Applicable RADIOLOGY DEPARTMENT: Ultrasound PERIPHERAL IV DATA: Not applicable SIGNED BY: Estee Doty March 15, 2020 12:48 PM [facility]01-04-[facility]21 Procedure note* Lisy Barajas Tech (Tech) - 03/15/2020 12:30 PM EST Radiology Service Progress Note PATIENT NAME: Philippe Rg DATE OF SERVICE: March 15, 2020 TIME: 12:48 PM PATIENT IDENTITY VERIFICATION COMPLETED USING TWO (2) IDENTIFIERS: Name and Date of confirmedby patient verbally. FALL SCREENING: Has the patient had 2 falls in the last year or 1 fall with injury or currently using an Ambulatory Assistive Device (Walker, Cane, Wheelchair, Crutches, etc.)? No PATIENT GENDER DATA: Female. status: : No status: NO. PATIENT RELEVANT IMPLANT DATA REVIEWED: Not Applicable RADIOLOGY DEPARTMENT: Ultrasound PERIPHERAL IV DATA: Not applicable SIGNED BY: Estee Doty March 15, 2020 12:48 PM Radiology Service Progress Note PATIENT NAME: Philippe Rg DATE OF SERVICE: March 15, 2020 TIME: 12:48 PM PATIENT IDENTITY VERIFICATION COMPLETED USING TWO (2) IDENTIFIERS: Name and Date of confirmedby patient verbally. FALL SCREENING: Has the patient had 2 falls in the last year or 1 fall with injury or currently using an Ambulatory Assistive Device (Walker, Cane, Wheelchair, Crutches, etc.)? No PATIENT GENDER DATA: Female. status: : No status: NO. PATIENT RELEVANT IMPLANT DATA REVIEWED: Not Applicable RADIOLOGY DEPARTMENT: Ultrasound PERIPHERAL IV DATA: Not applicable SIGNED BY: Estee Doty March 15, 2020 12:48 PM [facility] Crohn's disease of small and large intestines with complication (HCC)- Primary documented in this encounter [facility] note* Diagnosis Hypovitaminosis D- Primary Unspecified vitamin D deficiency documented in [facility] noteNo assessment information availableWACMC [facility] Work Phone: Evaluation note* Diagnosis Vulvar itching- Primary Pruritus of genital organs Vaginal itching Pruritus of genital organs documented in this encounter [facility] note* Diagnosis Encounter for gynecological examination (general) (routine) without abnormal findings- Primary Vaginal discharge Leukorrhea, not specified as infective Vulvar itching Pruritus of genital organs Spongiotic dermatitis Contact dermatitis and other eczema, due to unspecified cause control counseling General counseling for initiation of other contraceptive measures documented in this encounter [facility] note* Diagnosis Urinary frequency- Primary Burning with urination Dysuria documented in this encounter [facility] note* Diagnosis Vaginal itching- Primary Pruritus of genital organs Crohn's disease of small intestine with other complication (HCC) Bruising Contusion of unspecified site Celiac disease Screening for deficiency anemia Screening for other and unspecified deficiency anemia Screening for diabetes mellitus Screening for metabolic disorder Screening for thyroid disorder Encounter for vitamin deficiency screening Screening for other and unspecified endocrine, nutritional, metabolic, and immunity disorders documented in this encounter [facility] note* Diagnosis Pre-op evaluation- Primary Preoperative examination, unspecified Nontoxic single thyroid nodule Nontoxic uninodular goiter Crohn's disease of small intestine with other complication (HCC) Attention to ileostomy (HCC) Attention to ileostomy Stage 3 chronic kidney disease, unspecified whether stage 3a or 3b CKD (HCC) Ovarian cyst, left- Primary Other and unspecified ovarian cyst Other intra-abdominal and pelvic swelling, mass and lump documented in this encounter [facility] note* Diagnosis Pre-op evaluation- Primary Preoperative examination, unspecified Nontoxic single thyroid nodule Nontoxic uninodular goiter Crohn's disease of small intestine with other complication (HCC) Attention to ileostomy (HCC) Attention to ileostomy Stage 3 chronic kidney disease, unspecified whether stage 3a or 3b CKD (HCC) Ovarian cyst, left Other and unspecified ovarian cyst documented in this encounter [facility] note* Diagnosis Pre-op evaluation- Primary Preoperative examination, unspecified Nontoxic single thyroid nodule Nontoxic uninodular goiter Crohn's disease of small intestine with other complication (HCC) Attention to ileostomy (HCC) Attention to ileostomy Stage 3 chronic kidney disease, unspecified whether stage 3a or 3b CKD (HCC) Ovarian cyst, left- Primary Other and unspecified ovarian cyst documented in this encounter [facility] note* Diagnosis Nodule of neck Swelling, mass, or lump in head and neck Pre-op evaluation- Primary Preoperative examination, unspecified Nontoxic single thyroid nodule Nontoxic uninodular goiter Crohn's disease of small intestine with other complication (HCC) Attention to ileostomy (HCC) Attention to ileostomy Stage 3 chronic kidney disease, unspecified whether stage 3a or 3b CKD (HCC) documented in this encounter [facility] note* Diagnosis Pre-op evaluation- Primary Preoperative examination, unspecified Nontoxic single thyroid nodule Nontoxic uninodular goiter Crohn's disease of small intestine with other complication (HCC) Attention to ileostomy (HCC) Attention to ileostomy Stage 3 chronic kidney disease, unspecified whether stage 3a or 3b CKD (HCC) Procedure not carried out- Primary Procedure not carried out for other reasons documented in this encounter [facility] note* Diagnosis Pre-op evaluation- Primary Preoperative examination, unspecified Nontoxic single thyroid nodule Nontoxic uninodular goiter Crohn's disease of small intestine with other complication (HCC) Attention to ileostomy (HCC) Attention to ileostomy Stage 3 chronic kidney disease, unspecified whether stage 3a or 3b CKD (HCC) Encounter for gynecological examination (general) (routine) with abnormal findings- Primary Encounter for screening for malignant neoplasm of cervix Screening for malignant neoplasm of the cervix Special screening examination for human papillomavirus (HPV) Left ovarian cyst Other and unspecified ovarian cyst documented in this encounter [facility] for referral (narrative)* Diagnostic Procedure Only (Routine) - New Request Specialty Diagnoses / Procedures Referred By Contac t Referred To Contact [facility] Diagnoses Ovarian cyst, left Procedures PELVIC US WHI US PELVIC NONOBSTETRIC REAL-TIME IMAGE COMPLETE Philippe Wallace APRN.CNP [address] [place] [address] [facility] [address] [place] [address] Referral ID Status Reason Start Date Expiration Date Visits Requested Visits Authorized [id number] New Request Auto-Generat ed Referral 08/20/2024 11/18/2024 1 1 [facility] for visit Narrative* Diagnostic Procedure Only (Routine) - Closed Specialty Diagnoses / Procedures Referred By Contac t Referred To Contact [facility] Diagnoses Ovarian cyst, left Procedures PELVIC US WHI US PELVIC NONOBSTETRIC REAL-TIME IMAGE COMPLETE Philippe Wallace APRN.CNP [address] [place] [address] [facility] [address] [place] [address] Referral ID Status Reason Start Date Expiration Date V isits Requested Visits Authorized [id number] Closed Auto-Generate d Referral 11/08/2023 11/07/2024 1 1 [facility] Summary Purpose Family History No Family History Records Found Relationship Condition Age at Onset Recorded Date/T nhi Unknown Family History?- Unknown July 23, 019 4:19am Family History?- Unknown July 23, 019 4:19am Relationship Condition Age at Onset Recorded Date/T nhi father Hypertension Unknown grandmother Malignant neoplasm of colon Unknown grandfather Malignant neoplasm Unknown Relationship Condition Age at Onset Recorded Date/T nhi father Hypertension Unknown grandmother Malignant neoplasm of colon Unknown Osteoporosis Unknown grandfather Malignant neoplasm Unknown Advance Directives No Advanced Directives Records FoundDocuments on File Type Date 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 Advance Directive(s) Advance Directive(s) 06/04/2021 1:45 PM Advance Directive(s) 04/18/2021 8:42 PM Advance Directive(s) 05/27/2020 11:53 AM Advance Directive(s) 05/25/2020 4:35 PM Advance Directive(s) 10/19/2019 12:43 PM Advance Directive(s) 03/02/2017 3:31 AM Advance Directive(s) 11/05/2016 1:22 PM Advance Directive(s) 11/04/2016 11:11 PM Advance Directive(s) 07/16/2016 10:28 AM Advance Directive(s) 05/30/2016 10:02 PM Advance Directive(s) 04/23/2016 12:31 PM Advance Directive(s) 03/20/2016 8:19 AM Advance Directive Response Recorded Date/ Time Living Will No September 07, 2021 3:16am Power of Percher No September 07 3:16am Advance Directive Response Recorded Date/ Time Living Will No February 06 6:22pm Power of Percher No February 07, 2024 6:22pm Living Will No March 07 11:31pm Power of Percher No March 07, 2024 11:31pm Living Will No February 28 6:45pm Power of Percher No February 29, 2024 6:45pm Living Will No May 13, 2024 4:30am Power of Percher No May 13 4:30am Advance Directive Response Recorded Date/ Time Living Will No March 07 11:31pm Do you have a Healthcare Power of Percher? No March 07, 2024 11:31pm Living Will No February 28 6:45pm Do you have a Healthcare Power of Percher? No February 29, 2024 6:45pm Living Will No May 13, 2024 4:30am Do you have a Healthcare Power of Percher? No May 13, 2024 4:30am Procedure Findings Note HNO ID: [id number] Author: Melva Lezama Service: ? Author Type: Nurse Supervisor Ride Assembly Type: Anesthesia Procedure Notes Filed: 05/28/2020 7:34 AM Note Text: ANESTHESIOLOGY PROCEDURE NOTE Airway General Information Procedure Start Time/Medication Administration: 05/28/2020 7:23 AM Patient location during procedure: OR Timeout Performed Pre-procedure: timeout performed Consent Obtained: Yes Patient identity confirmed: arm band and patient Staffing SURFBOARD MAKER: Andree Modi Performed by: SURFBOARD MAKER Indications and Patient Condition Preoxygenated: yes Patient position: sniffing Indications for airway management: anesthesia Method: asleep Final Airway Details Final airway type: endotracheal airway Final Endotracheal Airway: ETT Cuffed: yes Successful intubation technique: direct laryngoscopy Endotracheal tube insertion site: oral Blade: [place] Blade size: #3 ETT size (mm): 6.0 Measured from: lips Measurement (cm): 20 Placement verified by: chest auscultation Cormack-Lehane Classification (more content not included)... Note HNO ID: [id number] Author: Tyrell Simmons Service: General Surgery Author Type: Physician Type: Brief Op Note Filed: 05/28/2020 8:12 AM Note Text: BRIEF OPERATIVE / PROCEDURE NOTE LOG ID: [id number] SURGERY/PROCEDURE DATE: 05/28/2020 INCISION/PROCEDURE START TIME: 7:31 AM INCISION CLOSE/PROCEDURE END TIME: 8:01 AM SURGEON(S)/PROCEDURALIST(S) AND CANT HOOKER(S): Surgeon(s) and Role: * Elida Franklin - Primary * Em Simmons - Fellow No Additional Staff SURGERY/PROCEDURE(S): Left thyroid lobectomy ANESTHESIA: General FINDINGS: Left thyroid nodule. Upper parathyroid preserved in situ, lower parathyroid gland not definitively identified. Left RLN identified and protected throughout the case. ESTIMATED BLOOD LOSS: 5 mls SPECIMENS: Left thyroid lobe COMPLICATIONS: None PRE-OP/PRE-PROCEDURE DIAGNOSIS: Left thyroid nodule suspicious for PTC POST-OP/POST-PROCEDURE DIAGNOSIS: Same as Preop SIGNATURE: Em Simmons MD PATIENT NAME: Philippe Rg DATE: May 28, 2020 TIME: 8 (more content not included)... Chief Complaint and Reason for Visit Chief Complaint uti Chief Complaint Admit Date COUGH February 07, 2024 3:27pm ACUTE [facility] FU-EST WITH ROSAS February 092023 1:30pm palpitations February 29, 2024 5:05pm 1 Y FU March 03, 2024 1:13pm PALPITATIONS March 07, 2024 9:23pm ACUTE-HR/BP FU March 21, 2024 8 :49am Tachycardia, unspecified March 25 12:26pm TACHY March 25, 2024 1 2:52pm TACHYCARDIA March 26, 2024 2 :52pm POTS (WAYT) April 10, 2024 8 :48am Abnormal electrocardiogram [ECG] [EKG] J anuary 2024 9:50am sore throat, weight loss May 13, 2024 1:37am PHARYNGITIS. HYPONATREMIA May 13 4:55pm PHARYNGITIS. HYPONATREMIA May 14 3:43pm Follow Up May 15, 2024 8:52 am Reason for Visit Admit Date Acute upper respiratory infection Decemb er 2023 1:30pm Celiac disease March 03, 2024 1:13pm Weight loss March 03, 2024 1:13pm Crohn's disease March 03, 2024 1:13pm Low blood pressure March 21, 2024 8 :49am Postural orthostatic tachycardia syndrom e [POTS] March 21, 2024 8:49am Postural orthostatic tachycardia syndrom e [POTS] March 26, 2024 2:52pm History of thyroid cancer March 26, 2024 2:52pm CKD (chronic kidney disease) March 8:48am Crohn's disease April 10, 2024 8 :48am Low blood pressure April 10, 2024 8 :48am POTS (postural orthostatic tachycardia s yndrome) April 10, 2024 8:48am Celiac disease May 13, 2024 4:55 pm Hyponatremia May 13, 2024 4:55 pm CKD (chronic kidney disease) May 13, 2024 4:55pm Crohn's disease May 13, 2024 4:55 pm POTS (postural orthostatic tachycardia s yndrome) May 13, 2024 4:55pm Metabolic acidosis May 13, 2024 4:55 pm Pharyngitis May 13, 2024 4:55 pm Crohn's disease May 15, 2024 8:52 am Chronic diarrhea May 15, 2024 8:52 am Chief Complaint Admit Date ACUTE [facility] FU-EST WITH ROSAS February 092023 1:30pm palpitations February 29, 2024 5:05pm 1 Y FU March 03, 2024 1:13pm PALPITATIONS March 07, 2024 9:23pm ACUTE-HR/BP FU March 21, 2024 8 :49am Tachycardia, unspecified March 25, 2 025 12:26pm TACHY March 25, 2024 1 2:52pm TACHYCARDIA March 26, 2024 2 :52pm POTS (WAYT) April 10, 2024 8 :48am Abnormal electrocardiogram [ECG] [EKG] J anuary 2024 9:50am sore throat, weight loss May 13, 2024 1:37am PHARYNGITIS. HYPONATREMIA May 13 4:55pm PHARYNGITIS. HYPONATREMIA May 14 3:43pm Follow Up May 15, 2024 8:52 am [facility] FU May 28, 2024 7:4 7am Thyroid June 03, 2024 9:3 0am Reason for Visit Admit Date Acute upper respiratory infection Decemb er 2023 1:30pm Celiac disease March 03, 2024 1:13pm Weight loss March 03, 2024 1:13pm Crohn's disease March 03, 2024 1:13pm Low blood pressure March 21, 2024 8 :49am Postural orthostatic tachycardia syndrom e [POTS] March 21, 2024 8:49am Postural orthostatic tachycardia syndrom e [POTS] March 26, 2024 2:52pm History of thyroid cancer March 26, 2024 2:52pm CKD (chronic kidney disease) March 8:48am Crohn's disease April 10, 2024 8 :48am Low blood pressure April 10, 2024 8 :48am POTS (postural orthostatic tachycardia s yndrome) April 10, 2024 8:48am Celiac disease May 13, 2024 4:55 pm Hyponatremia May 13, 2024 4:55 pm CKD (chronic kidney disease) May 13, 2024 4:55pm Crohn's disease May 13, 2024 4:55 pm POTS (postural orthostatic tachycardia s yndrome) May 13, 2024 4:55pm Metabolic acidosis May 13, 2024 4:55 pm Pharyngitis May 13, 2024 4:55 pm Crohn's disease May 15, 2024 8:52 am Chronic diarrhea May 15, 2024 8:52 am Electrolyte abnormality May 28, 2024 7:47am Chronic diarrhea May 28, 2024 7:4 7am POTS (postural orthostatic tachycardia s yndrome) May 28, 2024 7:47am Adrenal insufficiency June 03, 2024 9 :30am Low blood pressure June 03, 2024 9:3 0am Osteoporosis June 03, 2024 9:3 0am Thyroid cancer June 03, 2024 9:3 0am Reason for Referral Specialty Diagnoses / Procedures Referred By Contac t Referred To Contact MR IMAGING Diagnoses Other intra-abdominal and pelvic swelling, mass and lump Procedures MRI FEMALE PELVIS WO/W IVCON MRI PELVIS W/O & W/CONTRAST MATERIAL Philippe Wallace APRN.MANAGER CREDIT COLLECTIONS [address] [place] [address] [id number] Referral ID Status Reason Start Date Expiration Date Visits Requested Visits Authorized [id number] New Request Auto-Generat ed Referral 11/08/2023 12/07/2024 1 1 Specialty Diagnoses / Procedures Referred By Contac t Referred To Contact [facility] Diagnoses Ovarian cyst, left Procedures PELVIC US WHI US PELVIC NONOBSTETRIC REAL-TIME IMAGE COMPLETE Philippe Wallace APRN.MANAGER CREDIT COLLECTIONS [address] [place] [address] [facility] [address] [place] [address] Referral ID Status Reason Start Date Expiration Date Visits Requested Visits Authorized [id number] Authorized Auto-Generat ed Referral 11/08/2023 11/07/2024 1 1 Additional Source Comments INFORMATION SOURCE (unrecogn ized section and content) DATE CREATED AUTHOR 09/04/2017 [facility] DATE CREATED AUTHOR AUTHOR'S ORGANIZ ATION 06/01/2020 [facility] DATE CREATED AUTHOR AUTHOR'S ORGANIZ ATION 08/07/2024 [facility] DATE CREATED AUTHOR AUTHOR'S ORGANIZ ATION 08/10/2024 [facility] Source Comments (unrecognize d section and content) In the event this informatio n is protected by the Federal Confidentiality of Alcohol and Drug Abuse Patient Records regulations: The Federal rules restrict any use of the information to criminally investigate or prosecute any alcohol or drug abuse patient.[facility] the event this information is protected by the Federal Confidentiality of Alcohol and Drug Abuse Patient Records regulations: The Federal rules restrict any use of the information to criminally investigate or prosecute any alcohol or drug abuse patient.[facility] the event this information is protected by the Federal Confidentiality of Alcohol and Drug Abuse Patient Records regulations: The Federal rules restrict any use of the information to criminally investigate or prosecute any alcohol or drug abuse patient.[facility] the event this information is protected by the Federal Confidentiality of Alcohol and Drug Abuse Patient Records regulations: The Federal rules restrict any use of the information to criminally investigate or prosecute any alcohol or drug abuse patient.[facility] the event this information is protected by the Federal Confidentiality of Alcohol and Drug Abuse Patient Records regulations: The Federal rules restrict any use of the information to criminally investigate or prosecute any alcohol or drug abuse patient.[facility] Hospital[facility] the event this information is protected by the Federal Confidentiality of Alcohol and Drug Abuse Patient Records regulations: The Federal rules restrict any use of the information to criminally investigate or prosecute any alcohol or drug abuse patient.[facility] the event this information is protected by the Federal Confidentiality of Alcohol and Drug Abuse Patient Records regulations: The Federal rules restrict any use of the information to criminally investigate or prosecute any alcohol or drug abuse patient.[facility] Hospital[facility] the event this information is protected by the Federal Confidentiality of Alcohol and Drug Abuse Patient Records regulations: The Federal rules restrict any use of the information to criminally investigate or prosecute any alcohol or drug abuse patient.[facility] HospitalIn the event this information is protected by the Federal Confidentiality of Alcohol and Drug Abuse Patient Records regulations: The Federal rules restrict any use of the information to criminally investigate or prosecute any alcohol or drug abuse patient.[facility] the event this information is protected by the Federal Confidentiality of Alcohol and Drug Abuse Patient Records regulations: The Federal rules restrict any use of the information to criminally investigate or prosecute any alcohol or drug abuse patient.[facility] Hospital[facility] the event this information is protected by the Federal Confidentiality of Alcohol and Drug Abuse Patient Records regulations: The Federal rules restrict any use of the information to criminally investigate or prosecute any alcohol or drug abuse patient.[facility] HospitalIn the event this information is protected by the Federal Confidentiality of Alcohol and Drug Abuse Patient Records regulations: The Federal rules restrict any use of the information to criminally investigate or prosecute any alcohol or drug abuse patient.[facility] the event this information is protected by the Federal Confidentiality of Alcohol and Drug Abuse Patient Records regulations: The Federal rules restrict any use of the information to criminally investigate or prosecute any alcohol or drug abuse patient.[facility] HospitalIn the event this information is protected by the Federal Confidentiality of Alcohol and Drug Abuse Patient Records regulations: The Federal rules restrict any use of the information to criminally investigate or prosecute any alcohol or drug abuse patient.[facility] HospitalIn the event this information is protected by the Federal Confidentiality of Alcohol and Drug Abuse Patient Records regulations: The Federal rules restrict any use of the information to criminally investigate or prosecute any alcohol or drug abuse patient.[facility] HospitalIn the event this information is protected by the Federal Confidentiality of Alcohol and Drug Abuse Patient Records regulations: The Federal rules restrict any use of the information to criminally investigate or prosecute any alcohol or drug abuse patient.[facility] HospitalIn the event this information is protected by the Federal Confidentiality of Alcohol and Drug Abuse Patient Records regulations: The Federal rules restrict any use of the information to criminally investigate or prosecute any alcohol or drug abuse patient.[facility] HospitalIn the event this information is protected by the Federal Confidentiality of Alcohol and Drug Abuse Patient Records regulations: The Federal rules restrict any use of the information to criminally investigate or prosecute any alcohol or drug abuse patient.[facility] Reason for Visit (unrecogniz ed section and content) Reason Comments Crohns Reason Comments ED Follow-up Reason Comments Insurance Authorization Prior Auth Delay ed: Additional Information Needed (Entyvio) Reason Comments Vaginal Problem Reason Comments Mailed embryo destroy form Reason Onset Date Comments Refill Request 10/15/2021 Reason Comments Well Woman Reason Comments Results Reason Comments Urinary Frequency burning with urinati on x 1 week Reason Comments Refill Request Reason Comments Follow Up Reason Comments Radiology US Reason Comments Yearly Exam Care Teams (unrecognized sec tion and content) Pit Furnace Operator Relationship Specialty Start Date End Date Alba Diaz MD [address] [place] [address] PCP - General Family Practice 03/10/19 Pit Furnace Operator Relationship Specialty Start Date End Date Alba Diaz MD [address] [place] [address] PCP - General Family Practice 03/10/19 Pit Furnace Operator Relationship Specialty Start Date End Date Alba Diaz MD [address] [place] [address] PCP - General Family Practice 03/10/19 Pit Furnace Operator Relationship Specialty Start Date End Date Alba Diaz MD [address] [place] [address] PCP - General Family Practice 03/10/19 Pit Furnace Operator Relationship Specialty Start Date End Date Alba Diaz MD [address] [place] [address] PCP - General Family Practice 03/10/19 Pit Furnace Operator Relationship Specialty Start Date End Date Alba Diaz MD [address] [place] [address] PCP - General Family Practice 03/10/19 Pit Furnace Operator Relationship Specialty Start Date End Date Alba Diaz MD [address] [place] [address] PCP - General Family Medicine 03/10/19 Pit Furnace Operator Relationship Specialty Start Date End Date Alba Diaz MD [address] [place] [address] PCP - General Family Medicine 03/10/19 Pit Furnace Operator Relationship Specialty Start Date End Date Alba Diaz MD [address] [place] [address] PCP - General Family Medicine 03/10/19 Pit Furnace Operator Relationship Specialty Start Date End Date Alba Diaz MD [address] [place] [address] PCP - General Family Medicine 03/10/19 Katlyn Cox APRN.MANAGER CREDIT COLLECTIONS [address] [place] [address] Family Medicine 05/14/23 Pit Furnace Operator Relationship Specialty Start Date End Date Alba Diaz MD [address] [place] [address] PCP - General Family Medicine 03/10/19 Podlogar, Katlyn, ENDOCRINOLOGY PHYSICIAN.MANAGER CREDIT COLLECTIONS [address] [place] [address] Family Medicine 05/14/23 Pit Furnace Operator Relationship Specialty Start Date End Date Alba Diaz MD [address] [place] [address] PCP - General Family Medicine 03/10/19 Podlogar, Katlyn, ENDOCRINOLOGY PHYSICIAN.MANAGER CREDIT COLLECTIONS [address] [place] [address] Family Medicine 05/14/23 Pit Furnace Operator Relationship Specialty Start Date End Date Alba Diaz MD [address] [place] [address] PCP - General Family Medicine 03/10/19 Podlogar, Katlyn, ENDOCRINOLOGY PHYSICIAN.MANAGER CREDIT COLLECTIONS [address] [place] [address] Family Medicine 05/14/23 Pit Furnace Operator Relationship Specialty Start Date End Date Alba Diaz MD [address] [place] [address] PCP - General Family Medicine 03/10/19 Pit Furnace Operator Relationship Specialty Start Date End Date Alba Diaz MD [address] [facility] [place] [address] PCP - General Family Medicine 03/10/19 Podlogar, MARJORIE Potts.MANAGER CREDIT COLLECTIONS [address] [facility] [place] [address] Family Medicine 05/14/23 Podlogar, JORDON PottsN.MANAGER CREDIT COLLECTIONS [address] [facility] [place] [address] Customer Engagement Representative Family Medicine 02/16/24 Team Status: Active Member Role Status Dates SHASTA Norris Primary Care Provider Active Team Status: Inactive Member Role Status Dates Dr. Chad Coleman , DO Attending Provider Activ e Start: February 07, 2024 End: February 07, 2024 Dr. Chad Coleman , DO Emergency Provider Activ e Start: February 07, 2024 End: February 07, 2024 No Primary Care Physician Primary Care Provider Active Start: February 07, 2024 End: February 07, 2024 Team Status: Inactive Member Role Status Dates No Primary Care Physician Primary Care Provider Active Start: February 21, 2024 End: February 21, 2024 No Primary Care Physician Referring Provider Active Start: February 21, 2024 End: February 21, 2024 SHASTA Norris Attending Provider Active St art: February 21, 2024 End: February 21, 2024 Team Status: Inactive Member Role Status Dates No Primary Care Physician Primary Care Provider Active Start: February 21, 2024 End: February 21, 2024 SHASTA Norris Attending Provider Active St art: February 21, 2024 End: February 21, 2024 SHASTA Norris Referring Provider Active St art: February 21, 2024 End: February 21, 2024 Team Status: Inactive Member Role Status Dates No Primary Care Physician Primary Care Provider Active Start: February 29, 2024 End: February 29, 2024 Dr. Jose Guadalupe Lazo , DO Attending Provider Active Start: February 29, 2024 End: February 29, 2024 Dr. Jose Guadalupe Lazo , DO Emergency Provider Active Start: February 29, 2024 End: February 29, 2024 Team Status: Inactive Member Role Status Dates No Primary Care Physician Primary Care Provider Active Start: March 03, 2024 End: March 03, 2024 No Primary Care Physician Referring Provider Active Start: March 03, 2024 End: March 03, 2024 PATIENCE DelgadoC Attending Provider Active Start: March 03, 2024 End: March 03, 2024 Team Status: Inactive Member Role Status Dates Antonio Roman PA, PA Primary Care Provider Active Start: March 03, 2024 End: March 03, 2024 Ashley Caruso NP-C Attending Provider Active Start: March 03, 2024 End: March 03, 2024 Ashley Caruso NP-C Referring Provider Active Start: March 03, 2024 End: March 03, 2024 Team Status: Inactive Member Role Status Dates Antonio Roman PA, PA Primary Care Provider Active Start: March 07, 2024 End: March 08, 2024 Dr. Guerrero Fuller DO Attending Provider Active Start: March 07, 2024 End: March 08, 2024 Dr. Guerrero Fuller , Emergency Provider Active Start: March 07, 2024 End: March 08, 2024 Team Status: Inactive Member Role Status Dates Antonio Roman PA, PA Primary Care Provider Active Start: March 21, 2024 End: March 21, 2024 Antonio Roman PA, PA Attending Provider Active St art: March 21, 2024 End: March 21, 2024 Antonio Roman PA, PA Referring Provider Active St art: March 21, 2024 End: March 21, 2024 Team Status: Inactive Member Role Status Dates Antonio Roman PA, PA Primary Care Provider Active Start: March 24, 2024 End: March 24, 2024 Antonio Roman PA, PA Attending Provider Active St art: March 24, 2024 End: March 24, 2024 Antonio Roman PA, PA Referring Provider Active St art: March 24, 2024 End: March 24, 2024 Team Status: Inactive Member Role Status Dates Antonio Roman PA, PA Primary Care Provider Active Start: March 25, 2024 End: March 25, 2024 Antonio Roman PA, PA Attending Provider Active St art: March 25, 2024 End: March 25, 2024 Antonio Roman PA, PA Referring Provider Active St art: March 25, 2024 End: March 25, 2024 Team Status: Active Member Role Status Dates Antonio Roman PA, PA Primary Care Provider Active Start: March 25, 2024 Antonio Roman PA, PA Referring Provider Active St art: March 25, 2024 Dr. Brendon Dave MD Attending Provider Active Start: March 25, 2024 Team Status: Inactive Member Role Status Dates Anotnio Roman PA, PA Primary Care Provider Active Start: March 26, 2024 End: March 26, 2024 Antonio Roman PA, PA Attending Provider Active St art: March 26, 2024 End: March 26, 2024 Antonio Roman PA, PA Referring Provider Active St art: March 26, 2024 End: March 26, 2024 Team Status: Inactive Member Role Status Dates Antonio Roman PA, PA Primary Care Provider Active Start: April 10, 2024 End: April 10, 2024 Antonio Roman PA, PA Referring Provider Active St art: April 10, 2024 End: April 10, 2024 Dr. Brendon Dave MD Attending Provider Active Start: April 10, 2024 End: April 10, 2024 Team Status: Inactive Member Role Status Dates Antonio Roman PA, PA Primary Care Provider Active Start: April 10, 2024 End: April 10, 2024 Antonio Roman PA, PA Attending Provider Active St art: April 10, 2024 End: April 10, 2024 Antonio Roman PA, PA Referring Provider Active St art: April 10, 2024 End: April 10, 2024 Team Status: Active Member Role Status Dates Antonio Roman PA, PA Primary Care Provider Active Start: April 10, 2024 Dr. Brendon Dave MD Attending Provider Active Start: April 10, 2024 Team Status: Active Member Role Status Dates Antonio Roman PA, PA Primary Care Provider Active Start: May 13, 2024 Dr. Rudi Chiu MD Emergency Provider Active Sta rt: May 13, 2024 Dr. Josiah Wilkins MD Attending Provider Active Start: May 13, 2024 Team Status: Inactive Member Role Status Dates Antonio Roman PA, PA Primary Care Provider Active Start: May 13, 2024 End: May 14, 2024 Dr. Rudi Chiu MD Emergency Provider Active Sta rt: May 13, 2024 End: May 14, 2024 Dr. Josiah Wilkins MD Admit Provider Active Star t: May 13, 2024 End: May 14, 2024 Dr. Josiah Wilkins MD Other Provider Active Star t: May 13, 2024 End: May 14, 2024 Dr. Yousuf Pleitez MD Attending Provider Active Start: May 13, 2024 End: May 14, 2024 Team Status: Active Member Role Status Dates Antonio VEGAS, PA Primary Care Provider Active Start: May 14, 2024 Dr. Rudi Chiu MD Emergency Provider Active Sta rt: May 14, 2024 Dr. Josiah Wilkins MD Admit Provider Active Star t: May 14, 2024 Dr. Josiah Wilkins MD Other Provider Active Star t: May 14, 2024 Dr. Yousuf Pleitez MD Attending Provider Active Start: May 14, 2024 Dr. Yousuf Pleitez MD Other Provider Active Sta rt: May 14, 2024 Team Status: Inactive Member Role Status Dates Antonio VEGAS, PA Primary Care Provider Active Start: May 15, 2024 End: May 15, 2024 Antonio VEGAS, PA Referring Provider Active St art: May 15, 2024 End: May 15, 2024 ANNA MARIE Delgado Attending Provider Active Start: May 15, 2024 End: May 15, 2024 Team Status: Inactive Member Role Status Dates Antonio VEGAS PA Primary Care Provider Active Start: May 15, 2024 End: May 15, 2024 ANNA MARIE Delgado Attending Provider Active Start: May 15, 2024 End: May 15, 2024 ANNA MARIE Delgado Referring Provider Active Start: May 15, 2024 End: May 15, 2024 Team Status: Inactive Member Role Status Dates Antonio Roman PA, PA Primary Care Provider Active Start: May 28, 2024 End: May 28, 2024 Antonio VEGAS PA Attending Provider Active St art: May 28, 2024 End: May 28, 2024 Antonio VEGAS, PA Referring Provider Active St art: May 28, 2024 End: May 28, 2024 Team Status: Inactive Member Role Status Dates SHASTA Norris Primary Care Provider Active Start: June 03, 2024 End: June 03, 2024 SHASTA Norris Referring Provider Active St art: June 03, 2024 End: June 03, 2024 Dr. 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 This clinical summary was aggregated from multiple sources. Caution should be exercised in using it in the provision of clinical care. This summary normalizes information from multiple sources, and as a consequence, information in this document may materially change the coding, format and clinical context of patient data. In addition, data may be omitted in some cases. CLINICAL DECISIONS SHOULD BE BASED ON THE PRIMARY CLINICAL RECORDS. [facility] [email or web address] [facility]. provides no warranty or guarantee of the accuracy or completeness of information in this document.
[2024-08-31 19:51] VITALS: BP 103/73; BP 92/63; BP 95/74; PULSE 78; PULSE 81; PULSE 95
[2024-08-31 20:15] LABS: Anion Gap 19 (5-15); BUN 40 mg/dL (4-19); BUN/Creat Ratio 13.9 RATIO (10-20); Calcium,Total 9.9 mg/dL (7.6-11.0); Carbon Dioxide 21.9 mmol/L (21.0-32.0); Chloride 90 mmol/L (98-108); Creatinine, Serum 2.88 mg/dL (0.70-1.20); EST Glomerular Filtration Rate 21 (>60); Glucose 106 mg/dL (70-99); Potassium 5.6 mmol/L (3.3-5.1); Sodium Level 130 mmol/L (133-145)
[2024-08-31 21:11] VITALS: BP 90/66; PULSE 89; RESP 16; O2SAT 97
[2024-08-31] MEDS: 0.9% Normal Saline (1000mL) 1,000 ML 1000 ML IV (21:19)
[2024-08-31 22:39] VITALS: BP 108/65; PULSE 59; RESP 18; TEMP 36.2; O2SAT 98
== END 2024-08-31 22:40 | disposition home or self-care (01) ==
PROVIDERS: Emergency Provider Emergency Medicine; PCP Physician Assistant; Visit Provider Emergency Medicine
DX: N17.9 Acute kidney failure, unspecified (principal); Z93.3 Colostomy status; K50.90 Crohn's disease, unspecified, without complications; C73 Malignant neoplasm of thyroid gland; I95.9 Hypotension, unspecified; N18.9 Chronic kidney disease, unspecified; E87.1 Hypo-osmolality and hyponatremia; G90.A Postural orthostatic tachycardia syndrome [POTS]; E27.40 Unspecified adrenocortical insufficiency; E86.0 Dehydration; R11.2 Nausea with vomiting, unspecified; Z79.890 Hormone replacement therapy; Z79.899 Other long term (current) drug therapy; Z90.49 Acquired absence of other specified parts of digestive tract
CPT/HCPCS: 80048; 96361; 96374; 99284; A4216; J2405

== ENCOUNTER → 2024-09-02 | Outpatient (CLI) | payer OTHER, SELFPAY ==
[2024-09-02 16:06] LABS: Anion Gap 12 (5-15); BUN 17 mg/dL (4-19); Carbon Dioxide 25.2 mmol/L (21.0-32.0); Chloride 102 mmol/L (98-108); Creatinine, Serum 1.31 mg/dL (0.70-1.20); EST Glomerular Filtration Rate 54 (>60); Glucose 85 mg/dL (70-99); Potassium 4.1 mmol/L (3.3-5.1); Sodium Level 139 mmol/L (133-145)
--- OUTSIDE RECORDS SUMMARY | 2024-09-02 22:10 | XMS RPT_ITS | CCD ---
Author Organization [facility] [employer] Care Team Providers Care Work Distributor Name Role Phone DARIN CORMIER Unavailable Unavailable DARIN CORMIER Unavailable Unavailable Alba Diaz MD Primary Care Provider Alba Diaz MD Primary Care Provider Alba Diaz MD Primary Care Provider Alba Diaz MD Primary Care Provider Podlogar [employer]OR[employer] COACH.Katlyn CORDOVA Unavailable Alba Diaz MD Primary Care Provider Podlogar [employer]OR[employer] COACH.Katlyn CORDOVA Unavailable Dr. Chad Coleman DO Attending [...] Provider Dr. Guerrero Fuller DO Emergency Provider Tenzin MUSE, Dr. Olivas Attending Provider Aram MUSE, Dr. Grijalva Emergency Provider Claudette MUSE, Dr. Rahman Attending Provider Claudette MUSE, Dr. Rahman Admit Provider Claudette MUSE, Dr. Rahman Other Provider Maik MUSE, Dr. To Attending Provider Maik MUSE, Dr. To Other Provider Care Physician, No Primary Primary Care Provider Unavailable King ALMAZ, Dr. Corona Attending Provider Marissa H[employer] SPORTS COACH.DETAIL SUPERVISOR, Leah Unavailable PHILIPPE WALLACE Referring Unavailable ALBA DIAZ Primary Care Unavailab NÉSTOR Landers Admitting Unavailable NÉSTOR GRECO Attending Unavailable ALBA WOLFE Referring Unavailable THADDEUS TOMLINSON Attending Unavailabl e ALBA DIAZ Primary Care Unavailab PHILIPPE Platt Attending Unavailable CAREN HOUSER Attending Unavail able ALBA DIAZ Primary Care Unavailab Antonio Mccann Primary Care Provider Claudette MUSE, Dr. Rahman Admit Provider Claudette MUSE, Dr. Rahman Other Provider Maik MUSE, Dr. To Attending Provider Antonio Lees Referring Provider Shady INVENTORY CLERK-CAshley Attending Provider Shady INVENTORY CLERK-CAshley Referring Provider Antonio Lees Attending Provider Antonio Lees Attending Unavailable Abel VEGAS, Antonio Referring Unavailable Abel VEGAS, Antonio Primary Care Unavailable Brendon Dave Attending Unavailable Abel VEGAS, Antonio Primary Care Unavailable Abel VEGAS, Antonio Referring Unavailable Philippe Vicente Attending Unavailable Philippe Vicente Referring Unavailable Philippe Vicente Primary Care Unavailable Cj Mcpherson Attending Unavailable Wayt PA, Antonio Primary Care Unavailable Wayt PA, Antonio Referring Unavailable Wayt PA, Antonio Primary Care Unavailable Ashley Caruso Referring Unavailable Ashley Caruso Attending Unavailable Philippe Vicente Referring Unavailable Ferullo, Philippe Primary Care Unavailable Wayt PA, Antonio Attending Unavailable Care Physician, No Primary Primary Care Unava ilable Care Physician, No Primary Referring Unava ilable Wayt PA, Antonio Attending Unavailable Ashley Caruso Attending Unavailable Wayt PA, Antonio Primary Care Unavailable Wayt PA, Antonio Referring Unavailable Ferullo, Philippe Primary Care Unavailable Guerrero Fuller Attending Unavailable Wayt PA, Antonio Primary Care Unavailable Wayt PA, Antonio Attending Unavailable Wayt PA, Antonio Referring Unavailable Wayt PA, Antonio Primary Care Unavailable Cj Mcpherson Attending Unavailable Cj Mcpherson Referring Unavailable Care Physician, No Primary Primary Care Unava ilable Chad Coleman Attending Unavailabl e Care Physician, No Primary Primary Care Unava ilable Jose Guadalupe Lazo Attending Unavailable Wayt PA, Antonio Primary Care Unavailable Ashley Caruso Referring Unavailable Ashley Caruso Attending Unavailable Care Physician, No Primary Primary Care Unava ilable Wayt PA, Antonio Referring Unavailable Wayt PA, Antonio Attending Unavailable Care Physician, No Primary Referring Unava ilable Care Physician, No Primary Primary Care Unava ilable Ashley Caruso Attending Unavailable Wayt PA, Antonio Primary Care Unavailable Wayt PA, Antonio Attending Unavailable Wayt PA, Antonio Referring Unavailable Wayt PA, Antonio Primary Care Unavailable Wayt PA, Antonio Attending Unavailable Wayt PA, Antonio Referring Unavailable Tenzin, Brendon Attending Unavailable Wayt PA, Antonio Primary Care Unavailable Tenzin, Brendon Attending Unavailable Wayt PA, Antonio Primary Care Unavailable Wayt PA, Antonio Referring Unavailable Wayt PA, Antonio Primary Care Unavailable Wayt PA, Antonio Attending Unavailable Wayt PA, Antonio Referring Unavailable Wayt PA, Antonio Primary Care Unavailable Rudi Chiu Attending Unavailable Damaris Almaraz Attending Unavailable Damaris Almaraz Referring Unavailable Feraashisho, Philippe Primary Care Unavailable Philippe Vicente Attending Unavailable FeraashishoPhilippe Referring Unavailable Ferullo, Philippe Primary Care Unavailable Feraashisho, Philippe Attending Unavailable Ferullo, Philippe Referring Unavailable Ferullo, Philippe Primary Care Unavailable Ashley Caruso Attending Unavailable Ashley Caruso Referring Unavailable Wayt PA, Antonio Primary Care Unavailable Wayt PA, Antonio Primary Care Unavailable Wayt PA, Antonio Referring Unavailable Wayt PA, Antonio Attending Unavailable Ky, Cj Attending Unavailable Ky, Cj Referring Unavailable Wayt PA, Antonio Primary Care Unavailable Wayt PA, Antonio Primary Care Unavailable Wayt PA, Antonio Referring Unavailable Wayt PA, Antonio Attending Unavailable Wayt PA, Antonio Primary Care Unavailable Guerrero Fuller Attending Unavailable Wilkins, Josiah Attending Unavailable Wayt PA, Antonio Primary Care Unavailable Wilkins, Josiah Admitting Unavailable Wilkins, Josiah Consulting Unavailable Maik, Yousuf Attending Unavailable Wayt PA, Antonio Primary Care Unavailable Maik, Yousuf Consulting Unavailable Ashley Caruso Attending Unavailable Wayt PA, Antonio Primary Care Unavailable Wayt PA, Antonio Referring Unavailable Wilkins, Josiah Admitting Unavailable Wilkins, Josiah Consulting Unavailable Maik, Yousuf Attending Unavailable Wayt PA, Antonio Primary Care Unavailable Allergies Allergy Classification Reported Allergen(s) Allergy Type Date of Onset Reaction(s) Facility (20 sources) adalimumab; Translations: [ADALIMUMAB] Drug Allergy 0 Intolerance [facility] Repository (20 sources) Adhesive Tape; Translations: [ADHESIVE TAPE (ROSINS)] Propensity to adverse reactions (disorder) 1 [facility] Repository (20 sources) inFLIXimab; Translations: [INFLIXIMAB] Drug Allergy 0 Shortness of Breath [facility] Repository (20 sources) iron; Translations: [IRON] Drug Allergy 2 Intolerance [facility] Repository (20 sources) vancomycin; Translations: [VANCOMYCIN] Drug Allergy 1 [facility] Repository (1 source) HUMARA Allergy to substance 2 [facility] Work Phone: (4 sources) Adhesive Tape; Translations: [adhesive tape] Allergy to substance 5 [facility] (2 sources) Gluten; Translations: [GLUTEN] Propensity to adverse reactions to drug (disorder) 5 Other: See Comments [facility] Repository Medications Current Medications Medication Drug Class(es) Dates Sig (Normalized) Sig (Original) acetaminophen 325 mg oral tablet (6 sources) take 2 tablets by mouth every [...] 7 days. cholecalciferol 0.01 mg oral capsule (5 sources) Vitamin D Start: 01-26-2022 take 1 [...] daily. cholecalciferol, vitamin D3, (VITAMIN D3 ORAL) (15 sources) take 2000 [IU] by mouth once daily cholecalciferol, vitamin D3, (VITAMIN D3 ORAL) Take 2,000 Units by mouth once daily. Active cholecalciferol, vitamin D3, (VITAMIN D3 ORAL) Take by mouth once daily. Active cholecalciferol, vitamin D3, (VITAMIN D3 ORAL) Take by mouth. 0 Active Comment on above: Take by mouth. fludrocortisone acetate 0.1 mg oral tablet (18 sources) Start: take 1 tablet by mouth [...] Discontinued 0.05 mg PO TWICE A DAY May 09, 2024 2:03pm May 14, 2024 [...] 11/09/2023 Active ivabradine 5 mg oral tablet (12 sources) Hyperpolarization- activated Cyclic Nucleotide-gated Channel Jared Start: 06-21-2024 ivabradine (CORLANOR ) 5 mg tablet Taking 1 tablet in the morning and 1/2 tablet at night 06/21/2024 Active Start: 04-10-2024 End: 06-19-2024 ivabradine (CORLANOR) 5 mg t ablet Taking 1 tablet in the morning and 1/2 tablet at night 06/21/2024 Active levothyroxine sodium 0.025 mg oral tablet (20 sources) l-Thyroxine Start: 03-29-2021 End: 06-06-2024 levothyroxine (SYNTHROID) 25 mcg tablet TAKE 1 TABLET DAILY (6 A.M.) 90 tablet 10/27/2022 Active Comment on above: Take 1 tablet by andreea th DAILY (6 AM). TAKE 1 TABLET DAILY (6 A.M.) Magnesium (3 sources) Start: 10-17-2023 take 1 tablet by mouth once daily Magnesium 200 mg tablet Active 200 mg PO DAILY October 17, 2023 12:00am Multivitamin capsule (19 sources) take 1 capsule by mouth once daily Multivitamin capsule Take 1 capsule by mouth once daily. Active take 1 capsule by mouth once job ly Multivitamin capsule Take 1 capsule by mouth once daily. 0 Active Comment on above: Take 1 capsule by mo [facility] once daily. ondansetron 4 mg disintegrating [...] Start: 06-06-2021 take 1 tablet by andreea once daily as needed for nausea ondansetron [...] on above: Take 1 tablet by andreea once daily as needed for nausea/vomiting. promethazine hydrochloride 25 mg oral tablet (4 sources) Phenothiazine Start: take 1 tablet by [...] completed) sodium bicarbonate 650 mg oral tablet (4 sources) Start: 05-14-2024 take 1 tablet by mouth three times daily Sodium Bicarbonate 650 mg Tablet Active 650 mg PO THREE TIMES A DAY 21 7 May 14, 2024 1:00am Start: 04-22-2019 End: 06-07-2020 [...] for 7 days. Vitamin B Complex tablet (3 sources) Start: 04-07-2024 Vitamin B Comp lu tablet Active 1 {tbl} PO daily April 07, 2024 1:00am vitamin B complex vit C no.3 (VITAMIN B COMP AND C NO.3 ORAL) (7 sources) vitamin B comple x vit C [...] / HYDROcodone bitartrate 0.5 mg/ml oral solution (4 sources) Opioid Agonist Start: 09-04-2019 End: 09-07-2019 [...] mg / clavulanate 125 mg oral tablet (3 sources) Penicillin-class Antibacterial Start: 05-14-2024 End: 05-28-2024 Amoxicillin-Pot Clavulanate 875-125 mg tablet Discontinued 1 {tbl} PO TWICE A DAY 10 5 May 14, 2024 1:00am May 28, 2024 7:50am benzocaine 15 mg / menthol 3.6 mg oral lozenge (3 sources) Standardized Chemical Allergen Start: 05-14-2024 End: 05-15-2024 Benzocaine-Menthol (Sore Throat (Benzocaine-Menth)) 15-3.6 mg Lozenge Discontinued 1 NMA MUCOUS MEM EVERY 2 HOURS NEEDED as needed for SORE THROAT 0 May 14, 2024 1:00am May 15, 2024 10:01am [id number] benzonatate 100 mg oral capsule (3 sources) Non-narcotic Antitussive Start: 02-07-2024 End: 02-21-2024 take 1 capsule by mouth twice daily as needed for cough Benzonatate 100 mg capsule Discontinued 100 mg PO TWICE A DAY as needed for cough 15 5 February 07, 2024 1:00am February 21, 2024 [...] hydrochloride 120 mg extended release oral capsule (3 sources) Calcium Channel Jared Start: 03-08-2024 End: 03-21-2024 take 1 capsule by mouth once daily in the morning, then take 1 capsule by mouth every twenty-four hours Diltiazem Hcl (Cardizem Cd) 120 mg capsule,extended release 24hr Discontinued 120 mg PO EVERY MORNING March 08, 2024 1:00am March 21, 2024 9:56am Norethindrone Ac-Eth Estradiol (8 sources) Estrogen Start: 01-26-2022 End: 11-06-2023 Norethindrone Ac-Eth Estradiol (03/31 ()) 1-20 mg-mcg tablet Discontinued 1 {tbl} PO [...] inactive pills fluconazole 100 mg oral tablet (4 sources) Azole Antifungal Start: 4 End: 4 take 1 tablet by mouth once daily [...] above: Take 1 tablet by andreea th one time only for 1 dose. Repeat in 3 days as needed. glucagon (rdna) 1 mg injection (1 source) Antihypoglycemic Agent Start: End: inject 1 mg intravenously once glucagon (GLUCAGEN) 1 mg/mL injection Inject 1 mg intravenously one time only for 1 dose. For MRI Enterography, Inject 1 mg intravenously, as directed. Slow push at the appropriate time during MRI Scan 1 mg 11/02/2019 03/16/2020 Discontinued (Course of therapy completed) LORazepam 0.5 mg oral tablet (6 sources) Benzodiazepine Start: 024 End: take 0.5 tablet by mouth once daily as needed for anxiety, then take 1 tablet by mouth once daily as needed for anxiety Lorazepam 0.5 mg tablet Discontinued 0 PO daily as needed for anxiety February 28, 2024 3:30pm April 10, 2024 10:03am 1/2 tab (0.25) - 1 tab (0.5mg) orally daily PRN; metoprolol tartrate 25 mg oral tablet (9 sources) beta-Adrenergic Jared Start: 025 End: Metoprolol Tartrate 25 mg tablet Discontinued [...] Discontinued 25 mg PO TWICE A DAY 60 March 08, 2024 1:00am March 21, 2024 [...] Start: 06-06-2021 take 3 tablets by mo ut once daily predniSONE (DELTASONE) 5 mg tablet [...] long taper. Risankizumab-Rzaa (Skyrizi) 60 mg/mL solution (3 sources) Start: 05-30-2022 End: 06-21-2023 Risankizumab-Rzaa (Skyrizi) [...] every eight (8) weeks Vitamin B Complex (3 sources) Start: 06-21-2023 End: 04-07-2024 Vitamin B complex Discontinued PO June 21, 2023 12:00am April 07, 2024 2:35pm takes 2 gummies daily Problems Active Problems Problem Classification Problem Date Documented Da te Episodic/Chronic Acute and unspecified renal failure (13 sources) Acute renal failure syndrome; Translations: [Acute kidney failure, unspecified] Onset: 11-05-2016 Resolved: 03-11-2019 03-11-2019 Episodic Acute bronchitis (3 sources) Acute viral bronchitis; Translations: [Acute bronchitis due to other specified organisms] 02-15-2024 Episodic Administrative/social admission (3 sources) First encounter by subject; Translations: [Persons encountering health services in other specified circumstances] 03-31-2024 Episodic Allergic reactions (1 source) Spongiotic dermatitis; Translations: [Other specified dermatitis] Episodic Cancer of thyroid (20 sources) Papillary thyroid carcinoma; Translations: [Malignant neoplasm of thyroid gland] Onset: 08-05-2020 08-05-2020 Chronic Cardiac dysrhythmias (20 sources) Postural orthostatic tachycardia syndrome ; Translations: [Postural orthostatic tachycardia syndrome] Onset: 06-30-2014 04-07-2024 Chronic Chronic kidney disease (20 sources) Chronic kidney disease stage 3; Translations: [CKD (chronic kidney disease) stage 3, GFR 30-59 ml/min] Onset: 04-24-2019 04-24-2019 Chronic Complications of surgical procedures or medical care (18 sources) Postoperative hypothyroidism; Translations: [Postprocedural hypothyroidism] Onset: 08-05-2020 08-05-2020 Chronic Female infertility (19 sources) Female infertility; Translations: [Female infertility, unspecified] Onset: 12-10-2017 12-10-2017 Chronic Genitourinary symptoms and ill-defined conditions (3 sources) Increased frequency of urination; Translations: [Frequency of micturition] Onset: 07-14-2024 Episodic Immunizations and screening for infectious disease (1 source) Encounter for screening for human papillomavirus (HPV); Translations: [Special screening examination for human papillomavirus (HPV)] Onset: 06-23-2024 Episodic Lymphadenitis (7 sources) Cervical lymphadenitis; Translations: [Nonspecific lymphadenitis, unspecified] 04-16-2021 Episodic Mycoses (3 sources) Candidiasis of mouth; Translations: [Candidal stomatitis] 06-21-2023 Episodic Noninfectious gastroenteritis (14 sources) Acute gastroenteritis; Translations: [Noninfective gastroenteritis and colitis, unspecified] Onset: 06-08-2024 05-13-2024 Episodic Nutritional deficiencies (3 sources) Vitamin D deficiency; Translations: [Vitamin D deficiency, unspecified] Onset: 07-15-2024 Chronic Osteoporosis (6 sources) Osteoporosis; Translations: [Age-related osteoporosis without current pathological fracture] Onset: 06-03-2024 06-03-2024 Chronic Other circulatory disease (10 sources) Low blood pressure; Translations: [Hypotension, unspecified] Onset: 07-15-2024 04-10-2024 Episodic Other circulatory disease (1 source) Hypotension, unspecified; Translations: [Hypotension, unspecified hypotension type] Onset: 07-14-2024 Episodic Other connective tissue disease (3 sources) Muscle spasm of cervical muscle of neck; Translations: [Other muscle spasm] 01-25-2024 Episodic Other endocrine disorders (4 sources) Hypoadrenalism; Translations: [Unspecified adrenocortical insufficiency] 06-03-2024 Chronic Other female genital disorders (2 sources) Pruritus of vagina; Translations: [Other specified noninflammatory disorders of vagina] Episodic Other female genital disorders (1 source) Vaginal discharge; Translations: [Other specified noninflammatory disorders of vagina] Episodic Other gastrointestinal disorders (19 sources) Ileostomy present; Translations: [Encounter for attention to ileostomy] Onset: 04-04-2012 04-04-2012 Chronic Other gastrointestinal disorders (10 sources) Celiac disease; Translations: [Celiac disease] Onset: 07-15-2024 05-29-2023 Chronic Other gastrointestinal disorders (3 sources) Adult form of celiac disease; Translations: [Celiac disease] 05-13-2024 Chronic Other gastrointestinal disorders (3 sources) Celiac disease; Translations: [Celiac disease (HCC)] Onset: 05-17-2024 Chronic Other gastrointestinal disorders (1 source) Swelling; Translations: [Other intra-abdominal and pelvic swelling, mass and lump] 11-08-2023 Episodic Other gastrointestinal disorders (3 sources) Mass of uterine adnexa; Translations: [Other specified symptoms and signs involving the digestive system and abdomen] 10-23-2023 Episodic Other gastrointestinal disorders (1 source) History of Crohns disease; Translations: [Personal history of other diseases of the digestive system] 08-31-2024 Episodic Other gastrointestinal disorders (1 source) High output ileostomy; Translations: [Other specified symptoms and signs involving the digestive system and abdomen] Onset: 07-16-2024 07-16-2024 Episodic Other inflammatory condition of skin (2 sources) Pruritus of vulva; Translations: [Pruritus vulvae] Episodic Other injuries and conditions due to external causes (1 source) Contusion; Translations: [Other injury of unspecified body region, initial encounter] 05-29-2023 Episodic Other nervous system disorders (3 sources) Numbness and tingling sensation of skin; Translations: [Anesthesia of skin] 01-25-2024 Episodic Other nervous system disorders (3 sources) Carpopedal spasm; Translations: [Tetany] 01-19-2024 Episodic Other nervous system disorders (3 sources) Paresthesia; Translations: [Paresthesia of skin] 01-19-2024 Episodic Other nutritional; endocrine; and metabolic disorders (19 sources) Underweight; Translations: [Underweight] 05-29-2020 Episodic Other nutritional; endocrine; and metabolic disorders (3 sources) Unintentional weight loss; Translations: [Abnormal weight loss] 05-13-2024 Episodic Other nutritional; endocrine; and metabolic disorders (5 sources) Weight decreased; Translations: [Abnormal weight loss] 03-03-2024 Episodic Other skin disorders (1 source) Mass of neck; Translations: [Localized swelling, mass and lump, neck] 03-15-2020 Episodic Other upper respiratory infections (18 sources) Acute pharyngitis; Translations: [Acute pharyngitis, unspecified] Onset: 03-31-2024 03-31-2024 Episodic Regional enteritis and ulcerative colitis (20 sources) Crohn's disease of small intestine with unspecified complications; Translations: [Crohn's disease of small AND large intestines] Onset: 06-08-2010 Resolved: 05-21-2012 Chronic Residual codes; unclassified (1 source) Procedure not done; Translations: [Procedure and treatment not carried out, unspecified reason] 03-06-2024 Episodic Residual codes; unclassified (1 source) History of excision of intestinal structure; Translations: [Acquired absence of other specified parts of digestive tract] Onset: 07-15-2024 07-15-2024 Episodic Thyroid disorders (7 sources) Non-toxic uninodular goiter; Translations: [Nontoxic single thyroid nodule] Onset: 04-29-2020 Resolved: 08-05-2020 08-05-2020 Chronic Unclassified (1 source) Unknown / UNK(Unknown) Onset: 03-23-2017 Unclassified (2 sources) R53.83 - Other fatigue,I95.2 - Hypotension due to drugs,G90.A - Postural orthostatic tachycardia syndrome [POTS],R20.0 - Anesthesia of skin,R20.2 - Paresthesia of skin Unclassified (1 source) Acidosis, unspecified; Translations: [Acidosis, unspecified] Onset: 05-17-2024 Unclassified (1 source) Cough, unspecified; Translations: [Cough, unspecified] Onset: 03-06-2024 Past or Other Problems Problem Classification Problem Date Documented Da te Episodic/Chronic Abdominal pain (14 sources) Abdominal pain; Translations: [Unspecified abdominal pain] Onset: 4 Resolved: 9 03-07-2021 Episodic Anal and rectal conditions (7 sources) Perianal abscess; Translations: [Anal abscess] Onset: 2 Resolved: 7 04-24-2016 Episodic Biliary tract disease (7 sources) Cholelithiasis AND cholecystitis without obstruction; Translations: [Calculus of gallbladder with chronic cholecystitis without obstruction] Onset: 7 Resolved: 9 03-11-2019 Episodic Cancer of thyroid (3 sources) History of malignant neoplasm of thyroid; Translations: [Personal history of malignant neoplasm of thyroid] Onset: 5 03-26-2024 Episodic Cardiac dysrhythmias (20 sources) Tachycardia; Translations: [Tachycardia, unspecified] Onset: 5 Resolved: 7 03-07-2021 Episodic Complications of surgical procedures or medical care (1 source) Hypotension due to drugs; Translations: [Hypotension due to drugs] Onset: 5 Episodic Contraceptive and procreative management (15 sources) Patient encounter status; Translations: [Encounter for other general counseling and advice on contraception] Onset: 4 Resolved: 7 Episodic Deficiency and other anemia (7 sources) Anemia; Translations: [Anemia, unspecified] Resolved: 7 03-07-2021 Episodic Diseases of white blood cells (7 sources) Leukocytosis; Translations: [Elevated white blood cell count, unspecified] Onset: 4 Resolved: 7 03-07-2021 Chronic Fluid and electrolyte disorders (20 sources) Dehydration; Translations: [Dehydration] Onset: 3 Resolved: 9 03-07-2021 Episodic Malaise and fatigue (4 sources) Fatigue; Translations: [Other fatigue] Onset: 5 03-21-2024 Episodic Nausea and vomiting (4 sources) Nausea; Translations: [Nausea] Onset: 4 10-25-2023 Episodic Other circulatory disease (2 sources) Postural orthostatic tachycardia syndrome ; Translations: [Postural orthostatic tachycardia syndrome [POTS]] Onset: 5 Episodic Other female genital disorders (7 sources) Postcoital bleeding; Translations: [Postcoital and contact bleeding] Onset: 6 Resolved: 7 09-14-2016 Chronic Other female genital disorders (7 sources) Vaginal bleeding; Translations: [Postcoital and contact bleeding] Onset: 7 Resolved: 9 03-11-2019 Chronic Other fractures (19 sources) Compression fracture of vertebral column; Translations: [Collapsed vertebra, not elsewhere classified, site unspecified, initial encounter for fracture] Onset: 3 Episodic Other gastrointestinal disorders (1 source) Other specified symptoms and signs involving the digestive system and abdomen; Translations: [Other specified symptoms and signs involving the digestive system and abdomen] Onset: 4 Episodic Other nervous system disorders (7 sources) Postoperative pain ; Translations: [Other acute postprocedural pain] Onset: 5 Resolved: 7 03-07-2021 Episodic Other nervous system disorders (1 source) Anesthesia of skin; Translations: [Anesthesia of skin] Onset: 4 Episodic Other screening for suspected conditions (not mental disorders or infectious disease) (2 sources) Encounter for screening for malignant neoplasm of cervix; Translations: [Abnormal electrocardiogram [ECG] [EKG]] Onset: 5 Episodic Ovarian cyst (13 sources) Cyst of left ovary; Translations: [Unspecified ovarian cyst, left side] Onset: 6 Resolved: 9 11-08-2023 Episodic Phlebitis; thrombophlebitis and thromboembolism (7 sources) Deep venous thrombosis; Translations: [Acute embolism and thrombosis of unspecified deep veins of unspecified lower extremity] Onset: 4 Resolved: 7 03-07-2021 Episodic Spondylosis; intervertebral disc disorders; other back problems (7 sources) Backache; Translations: [Dorsalgia, unspecified] Onset: 3 Resolved: 7 03-07-2021 Episodic Unclassified (7 sources) SUMMARY Onset: 3 Resolved: 7 03-07-2021 Urinary tract infections (8 sources) Urinary tract infectious disease; Translations: [Urinary tract infection, site not specified] Onset: 7 Resolved: 5 03-11-2019 Episodic Results Test Name Value Interpretation Reference Range Facility Anion gap in Serum or Plasma Ordered By: Rudi Chiu on 08-31-2024 Anion gap [Moles/Vol] 19 mmol/L High 5-15 [facility] BUN/creatinine ratioOrdered By: Rudi Chiu on 08-31-2024 Urea nitrogen/Creatinine [Mass ratio] 13.9 mg/mg - [facility] Basic Metabolic Profile (BMP )on 08-31-2024 BUN/CRE 13.9 RATIO Normal 12-[address] [facility] Comment on above: Performed By: #### L 500.2500 ####[facility] [address] [place], [address] Calcium [Mass/Vol] 9.9 mg/dL Normal 7.6-11.0 [facility] Comment on above: Performed By: #### L 500.2500 ####[facility] [address] [place], [address] Chloride [Moles/Vol] 90 mmol/L Low 98-108 [facility] Comment on above: Performed By: #### L 500.2500 ####[facility] [address] [place], [address] CO2 [Moles/Vol] 21.9 mmol/L Normal 21.0-32.[address] [facility] Comment on above: Performed By: #### L 500.2500 ####[facility] [address] [place], [address] Creatinine [Mass/Vol] 2.88 mg/dL High 0.70-1.20 [facility] Comment on above: Performed By: #### L 500.2500 ####[facility] [address] [place], [address] ECRCL 13.90 ml/min Low 50-[address] [facility] Comment on above: Performed By: #### L 500.2500 ####[facility] [address] [place], [address] GAP 19 High 5-[address] [facility] Comment on above: Performed By: #### L 500.2500 ####[facility] [address] [place], [address] GFR/1.73 sq M.predicted among non-blacks MDRD (S/P/Bld) [Vol rate/Area] 21 mL/min/{1.73_m2} Low >[address] [facility] Comment on above: Result Comment: mL/m in/1.73m2 CKD-EPI Creatinine Equation (2020) Performed By: #### L 500.2500 ####[facility] [address] [place], [address] Glucose [Mass/Vol] 106 mg/dL High 70-99 [facility] Comment on above: Performed By: #### L 500.2500 ####[facility] [address] [place], [address] Potassium [Moles/Vol] 5.6 mmol/L High 3.3-5.1 [facility] Comment on above: Result Comment: Hemo lysis present, Results??could be affected.??Hemolysis present, Results??could be affected.?? Performed By: #### L 500.2500 ####[facility] [address] [place], [address] Sodium [Moles/Vol] 130 mmol/L Low 133-145 [facility] Comment on above: Performed By: #### L 500.2500 ####[facility] [address] [place], [address] Urea nitrogen [Mass/Vol] 40 mg/dL High 4-[address] [facility] Comment on above: Performed By: #### L 500.2500 ####[facility] [address] [place], [address] Carbon dioxide, total [Moles /volume] in Central venous bloodOrdered By: Rudi Chiu on 08-31-2024 CO2 [Moles/Vol] 21.9 mmol/L 21.0-32.[address] [facility] Chloride assayOrdered By: Jonas Chiu on 08-31-2024 Chloride [Moles/Vol] 90 mmol/L Low 98-108 [facility] Emergency Department Summary on 08-31-2024 Emergency Department Summary Normal [facility] Glomerular filtration rate ( GFR) estimation/1.73 sq m using serum, plasma, or whole bOrdered By: Rudi Chiu on 08-31-2024 GFR/1.73 sq M.predicted among non-blacks MDRD (S/P/Bld) [Vol rate/Area] 21 mL/min/{1.73_m2} Low >[address] [facility] Comment on above: mL/min/1.73m2 CKD-EP I Creatinine Equation (2020) Potassium measurement (mass/ volume)Ordered By: Rudi Chiu on 08-31-2024 Potassium (Unsp spec) [Mass/Vol] 5.6 mmol/L High 3.3-5.[address] [facility] Comment on above: Hemolysis present, R esults could be affected. Hemolysis present, Results could be affected. Serum creatinine measurement (mass/volume)Ordered By: Rudi Chiu on 08-31-2024 Creatinine [Mass/Vol] 2.88 mg/dL High 0.70-1.20 [facility] Serum glucose measurement (m ass/volume)Ordered By: Rudi Chiu on 08-31-2024 Glucose [Mass/Vol] 106 mg/dL High 70-99 [facility] Serum or plasma calcium joselyn urement (mass/volume)Ordered By: Rudi Chiu on 08-31-2024 Calcium [Mass/Vol] 9.9 mg/dL 7.6-11.0 [facility] Serum or plasma urea nitroge n measurement (mass/volume)Ordered By: Rudi Chiu on 08-31-2024 Urea nitrogen [Mass/Vol] 40 mg/dL High 4-[address] [facility] Sodium levelOrdered By: Rudi Chiu on 08-31-2024 Sodium [Moles/Vol] 130 mmol/L Low 133-145 [facility] CBC panel Auto (Bld)on 07-16 Erythrocyte distribution width (RBC) [Ratio] 14.2 % Normal 11.5-15.0 [facility] Comment on above: Order Comment: Speci men Type: BLOOD SPECIMEN Ordering Facility: [facility] Address: [address] [place] [address] Performed By: #### 1 4196-0, 67883-3 #### [facility] CLIA [id number] [address] [place] [address] [place] Hematocrit (Bld) [Volume fraction] 30.3 % Low 36.0-46.0 [facility] Comment on above: Order Comment: Speci men Type: BLOOD SPECIMEN Ordering Facility: [facility] Address: [address] [place] [address] Performed By: #### 1 4196-0, 02274-5 #### [facility] CLIA [id number] [address] [place] [address] [place] Hemoglobin (Bld) [Mass/Vol] 10.0 g/dL Low 11.5-15.5 [facility] Comment on above: Order Comment: Speci men Type: BLOOD SPECIMEN Ordering Facility: [facility] Address: [address] [place] [address] Performed By: #### 1 4196-0, 83835-7 #### [facility] CLIA [id number] [address] [place] [address] [place] MCH (RBC) [Entitic mass] 29.0 pg Normal 26.0-34.0 [facility] Comment on above: Order Comment: Speci men Type: BLOOD SPECIMEN Ordering Facility: [facility] Address: [address] [place] [address] Performed By: #### 1 4196-0, 45190-0 #### [facility] CLIA [id number] [address] [place] [address] [place] MCHC (RBC) [Mass/Vol] 33.0 g/dL Normal 30.5-36.0 [facility] Comment on above: Order Comment: Speci men Type: BLOOD SPECIMEN Ordering Facility: [facility] Address: [address] [place] [address] Performed By: #### 1 4196-0, 86562-9 #### [facility] CLIA [id number] [address] [place] [address] [place] MCV (RBC) [Entitic vol] 87.8 fL Normal 80.0-100.0 [facility] Comment on above: Order Comment: Speci men Type: BLOOD SPECIMEN Ordering Facility: [facility] Address: [address] [place] [address] Performed By: #### 1 4196-0, 61711-9 #### [facility] CLIA [id number] [address] [place] [address] [place] Nucleated RBC (Bld) [#/Vol] 10*3/uL Normal <0.01 [facility] Comment on above: Order Comment: Speci men Type: BLOOD SPECIMEN Ordering Facility: [facility] Address: [address] [place] [address] Performed By: #### 1 4196-0, 59734-2 #### [facility] CLIA [id number] [address] [place] [address] [place] Platelet mean volume (Bld) [Entitic vol] 9.7 fL Normal 9.0-12.7 [facility] Comment on above: Order Comment: Speci men Type: BLOOD SPECIMEN Ordering Facility: [facility] Address: [address] [place] [address] Performed By: #### 1 4196-0, 49839-4 #### [facility] CLIA [id number] [address] [place] [address] [place] Platelets (Bld) [#/Vol] 241 10*3/uL Normal 150-400 [facility] Comment on above: Order Comment: Speci men Type: BLOOD SPECIMEN Ordering Facility: [facility] Address: [address] [place] [address] Performed By: #### 1 4196-0, 06952-5 #### [facility] CLIA [id number] [address] [place] [address] [place] RBC (Bld) [#/Vol] 3.45 10*6/uL Low 3.90-5.20 [facility] Comment on above: Order Comment: Speci men Type: BLOOD SPECIMEN Ordering Facility: [facility] Address: [address] [place] [address] Performed By: #### 1 4196-0, 89318-3 #### [facility] CLIA [id number] [address] [place] [address] [place] WBC (Bld) [#/Vol] 5.55 10*3/uL Normal 3.70-11.00 [facility] Comment on above: Order Comment: Speci men Type: BLOOD SPECIMEN Ordering Facility: [facility] Address: [address] [place] [address] Performed By: #### 1 4196-0, 39136-5 #### [facility] CLIA [id number] [address] [place] [address] [place] CELIAC SCREENon 07-16-2024 GLIAD DEAMIDATED IGA QUAL Negative Normal Negative, Test not Indicated [facility] Comment on above: Order Comment: Speci men Type: BLOOD SPECIMEN Ordering Facility: [facility] Address: [address] [place] [address] Result Comment: This is used as an aid in diagnosis of celiac disease. Clinical correlation is required. The following results were obtained with an [employer]ova QUANTA Lite Gliadin IgA ADIEL Gliadin. Gliadin IgA values obtained with different manufacturers' assay methods may not be used interchangeably. The magnitude of the reported IgA levels cannot be correlated to an endpoint titer. Performed By: #### 1 4196-0, 63020-2 #### [facility] CLIA [id number] [address] [place] [address] [place] Gliadin peptide IgA Qn (S) 14 Units Normal <20 [facility] Comment on above: Order Comment: Kelly mcdaniel Type: BLOOD SPECIMEN Ordering Facility: [facility] Address: [address] [place] [address] Performed By: #### 1 4196-0, 11585-2 #### [facility] CLIA [id number] [address] [place] [address] [place] INTERPRETATION No serological evide nce of celiac disease, however, if celiac disease is clinically suspected and patient is not on gluten-free diet, histological diagnosis may be considered. HLA testing may help with risk assessment. Normal [facility] Comment on above: Order Comment: Kelly mcdaniel Type: BLOOD SPECIMEN Ordering Facility: [facility] Address: [address] [place] [address] Performed By: #### 1 4196-0, 55449-4 #### [facility] CLIA [id number] [address] [place] [address] [place] TRANSGLUTAMINASE IGA ABS INTERPRETATION Negative Normal Negative [facility] Comment on above: Order Comment: Kelly mcdaniel Type: BLOOD SPECIMEN Ordering Facility: [facility] Address: [address] [place] [address] Result Comment: The following results were obtained with Inova QUANTA Lite R h-tTG IgA ADIEL.???R h-tTG IgA values obtained with different manufacturers' assay methods may not be used interchangeably. The magnitude of the reported IgA levels cannot be corelated to an endpoint???concentration. This is used as an aid in diagnosis of celiac disease. Clinical correlation is required. Performed By: #### 1 4196-0, 63025-2 #### [facility] CLIA [id number] [address] [place] [address] [place] tTG IgA Qn (S) <2 Normal <4 [facility] Comment on above: Order Comment: Speci men Type: BLOOD SPECIMEN Ordering Facility: [facility] Address: [address] [place] [address] Performed By: #### 1 4196-0, 55757-1 #### [facility] CLIA [id number] [address] [place] [address] [place] CNDSon 07-16-2024 CNDS HNO ID: [id number] Author: NÉSTOR GRECO MD Service: General Internal [...] hypothyroidism, and POTS who presented to the [facility] for three day history of dysuria [...] of Care Critical Issues: 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 COMMUNICATION: Results will be communicated with the ordering provider via Pounce staff message or phone message by Imaging [...] 100% BMI (more content not included)... Normal [facility] CONSULTon 07-16-2024 CONSULT HNO ID: [id number] Author: DARIN CORMIER MD Service: Gastroenterology Author Type: Physician Type: Consults Filed: 07/16/2024 17:23 Note Text: Department of Gastroenterology AND Hepatology Initial Consult Note Date of Service: July 16, 2024 Patient: Philippe Rg Medical Record: [id number] Impression: Philippe Rg is a 38 year [...] Denies change in stoma output though, at baeline(approximately 1 L and off of any antimotility agents) Recommendations: - Continue loperamide 2 mg 4 times daily - Does not appear to be in acute flare. - Please send Celiac Serologies before DC - Would recommend close outpatient GI follow-up. Patient wants to reestablish at [facility]. - Plan for outpatient Upper Endoscopy and ileoscopy to evaluate Crohns status given as she's off of medications as well as biopsies for Celiac Lynnette Salazar PGY-1 Internal Medicine 07/16/2024 [id number] Will discuss with staff Dr Cormier History [...] adhesions and open cholecystectomy with cholangiograms in 2017 Previous Medical Treatments: Immunomodulators: Azathioprine (Imuran): Used [...] results. Currently was following with GI at [facility]. She has been off of any medications since March of this year. Previously was on prednisone which was slowly tapered down to 2.5. No biologic since . According to her plan was to repeat [...] stool p (more content not included)... Normal [facility] ECG COMPLETEon 07-16-2024 ECG COMPLETE Ventricular Rate : 6 6 BPM Atrial Rate : 66 BPM P-R Interval : 102 ms QRS Duration : 88 ms Q-T Interval : 414 ms QTC Calculation(Bazett) : 434 ms Calculated P Cornwall : 68 degrees Calculated R Cornwall : 63 degrees Calculated T Cornwall : 42 degrees SINUS RHYTHM WITH SHORT MO LOW VOLTAGE QRS, CONSIDER PULMONARY DISEASE, PERICARDIAL EFFUSION, OR NORMAL VARIANT BORDERLINE ECG Confirmed by SAMMY HERBERT MD ([id number]) on 08/09/2024 5:14:16 PM NAME : PHILIPPE RG PID : [id number] : 1985 Gender : Female Race : ORD : [id number] Procedure Date : Jul 16 2024 11:42:31 Edit Date : Aug 09 2024 17:14:21 Diagnosis: SINUS RHYTHM WITH SHORT MO LOW VOLTAGE QRS, CONSIDER PULMONARY DISEASE, PERICARDIAL EFFUSION, OR NORMAL VARIANT BORDERLINE ECG Confirmed by SAMMY HERBERT MD ([id number]) on 08/09/2024 5:14:16 PM Test Reason : Check QT Location : 84 : [place] [address] Overread By : SAMMY HERBERT MD Edited By : SAMMY HERBERT MD Referred By : ALBA WOLFE Acquired by : LUKE TRIANA Normal [facility] Ferritin SerPl-mCncon 2024 Ferritin [Mass/Vol] 91.1 ng/mL Normal 14.7-205.1 [facility] Comment on above: Order Comment: Speci men Type: BLOOD SPECIMEN Ordering Facility: [facility] Address: [address] [place] [address] Performed By: #### 1 4196-0, 96783-4 #### [facility] CLIA [id number] [address] [place] [address] [place] IgA SerPl-mCncon 07-16-2024 IgA [Mass/Vol] 251 mg/dL Normal 70-400 [facility] Comment on above: Order Comment: Kelly mcdaniel Type: BLOOD SPECIMEN Ordering Facility: [facility] Address: [address] [place] [address] Performed By: #### 1 4196-0, 34196-8 #### [facility] CLIA [id number] [address] [place] [address] [place] Iron and Iron binding capaci ty panelon 07-16-2024 Iron [Mass/Vol] 37 ug/dL Low 41-186 [facility] Comment on above: Order Comment: Kelly men Type: BLOOD SPECIMEN Ordering Facility: [facility] Address: [address] [place] [address] Performed By: #### 1 4196-0, 42031-1 #### [facility] CLIA [id number] [address] [place] [address] [place] Iron binding capacity [Mass/Vol] 229 ug/dL Low 232-386 [facility] Comment on above: Order Comment: Speci men Type: BLOOD SPECIMEN Ordering Facility: [facility] Address: [address] [place] [address] Performed By: #### 1 4196-0, 70980-3 #### [facility] CLIA [id number] [address] [place] [address] [place] Iron/TIBC [Molar ratio] 16.2 % Normal 15.0-57.0 [facility] Comment on above: Order Comment: Speci men Type: BLOOD SPECIMEN Ordering Facility: [facility] Address: [address] [place] [address] Performed By: #### 1 4196-0, 54832-0 #### [facility] CLIA [id number] [address] [place] [address] [place] Renal function 2000 panelon 07-16-2024 Albumin [Mass/Vol] 2.8 g/dL Low 3.9-4.9 [facility] Comment on above: Order Comment: Speci men Type: BLOOD SPECIMEN Ordering Facility: [facility] Address: [address] [place] [address] Performed By: #### 1 4196-0, 54759-3 #### [facility] CLIA [id number] [address] [place] [address] [place] Anion gap [Moles/Vol] 10 mmol/L Normal 8-15 [facility] Comment on above: Order Comment: Speci men Type: BLOOD SPECIMEN Ordering Facility: [facility] Address: [address] [place] [address] Performed By: #### 1 4196-0, 28966-2 #### [facility] CLIA [id number] [address] [place] [address] [place] Calcium [Mass/Vol] 8.6 mg/dL Normal 8.5-10.2 [facility] Comment on above: Order Comment: Speci men Type: BLOOD SPECIMEN Ordering Facility: [facility] Address: [address] [place] [address] Performed By: #### 1 4196-0, 99785-7 #### [facility] CLIA [id number] [address] [place] [address] [place] Chloride [Moles/Vol] 107 mmol/L Normal 98-107 [facility] Comment on above: Order Comment: Speci men Type: BLOOD SPECIMEN Ordering Facility: [facility] Address: [address] [place] [address] Performed By: #### 1 4196-0, 94373-3 #### [facility] CLIA [id number] [address] [place] [address] [place] CO2 [Moles/Vol] 22 mmol/L Normal 22-30 [facility] Comment on above: Order Comment: Speci men Type: BLOOD SPECIMEN Ordering Facility: [facility] Address: [address] [place] [address] Performed By: #### 1 4196-0, 17488-9 #### [facility] CLIA [id number] [address] [place] [address] [place] Creatinine [Mass/Vol] 1.26 mg/dL High 0.58-0.96 [facility] Comment on above: Order Comment: Speci men Type: BLOOD SPECIMEN Ordering Facility: [facility] Address: [address] [place] [address] Performed By: #### 1 4196-0, 25785-0 #### [facility] CLIA [id number] [address] [place] [address] [place] Creatinine and Glomerular filtration rate.predicted panel (S/P/Bld) 57 mL/min/1.73m??? Low >=60 [facility] Comment on above: Order Comment: Kelly mcdaniel Type: BLOOD SPECIMEN Ordering Facility: [facility] Address: [address] [place] [address] Result Comment: Cassy mated Glomerular Filtration Rate [...] actual GFR. Performed By: #### 1 4196-0, 71367-9 #### [facility] CLIA [id number] [address] [place] [address] [place] Glucose [Mass/Vol] 85 mg/dL Normal 74-99 [facility] Comment on above: Order Comment: Kelly mcdaniel Type: BLOOD SPECIMEN Ordering Facility: [facility] Address: [address] [place] [address] Result Comment: The [place] [employer] (ADA) [...] 2016.39(Suppl 1). Performed By: #### 1 4196-0, 66695-3 #### [facility] CLIA [id number] [address] [place] [address] [place] Phosphate [Mass/Vol] 1.5 mg/dL Low 2.7-4.8 [facility] Comment on above: Order Comment: Kelly mcdaniel Type: BLOOD SPECIMEN Ordering Facility: [facility] Address: [address] [place] [address] Performed By: #### 1 4196-0, 59821-1 #### [facility] CLIA [id number] [address] [place] [address] [place] Potassium [Moles/Vol] 4.5 mmol/L Normal 3.7-5.1 [facility] Comment on above: Order Comment: Speci men Type: BLOOD SPECIMEN Ordering Facility: [facility] Address: [address] [place] [address] Performed By: #### 1 4196-0, 95695-2 #### [facility] CLIA [id number] [address] [place] [address] [place] Sodium [Moles/Vol] 139 mmol/L Normal 136-144 [facility] Comment on above: Order Comment: Speci men Type: BLOOD SPECIMEN Ordering Facility: [facility] Address: [address] [place] [address] Performed By: #### 1 4196-0, 27144-1 #### [facility] CLIA [id number] [address] [place] [address] [place] Urea nitrogen [Mass/Vol] 11 mg/dL Normal 7-21 [facility] Comment on above: Order Comment: Speci men Type: BLOOD SPECIMEN Ordering Facility: [facility] Address: [address] [place] [address] Performed By: #### 1 4196-0, 37057-7 #### [facility] CLIA [id number] [address] [place] [address] [place] Retics #on 07-16-2024 Reticulocytes (Bld) [#/Vol] 0.20788 10*3/uL Normal 0.018-0.10 0 [facility] Comment on above: Order Comment: Speci men Type: BLOOD SPECIMEN Ordering Facility: [facility] Address: [address] [place] [address] Performed By: #### 1 4196-0, 73237-8 #### [facility] CLIA [id number] [address] [place] [address] [place] Reticulocytes (Bld) [#/Vol]o n 07-16-2024 Reticulocytes/100 RBC (Bld) 2.1 % High 0.4-2.0 [facility] Comment on above: Order Comment: Speci men Type: BLOOD SPECIMEN Ordering Facility: [facility] Address: [address] [place] [address] Performed By: #### 1 4196-0, 24105-9 #### [facility] CLIA [id number] [address] [place] [address] [place] C diff Tox gens Stl Ql ISAK+p robeon 07-15-2024 C. difficile toxin genes ISAK+probe Ql (Stl) Negative Normal Negative for C. difficile toxin by PCR [facility] Comment on above: Order Comment: Speci men Type: BLOOD SPECIMEN Ordering Facility: [facility] Address: [address] [place] [address] Performed By: #### 1 4196-0, 21233-8 #### [facility] IA [id number] [address] [place] [address] [place] CBC panel Auto (Bld)on 07-15 Erythrocyte distribution width (RBC) [Ratio] 14.1 % Normal 11.5-15.0 [facility] Comment on above: Order Comment: Speci men Type: BLOOD SPECIMEN Ordering Facility: [facility] Address: [address] [place] [address] Performed By: #### 5 8410-2 #### [facility] [place] [id number] [address] [place] [address] [place] Hematocrit (Bld) [Volume fraction] 36.7 % Normal 36.0-46.0 [facility] Comment on above: Order Comment: Speci men Type: BLOOD SPECIMEN Ordering Facility: [facility] Address: [address] [place] [address] Performed By: #### 5 8410-2 #### [facility] CLIA [id number] [address] [place], [place] [address] [place] Hemoglobin (Bld) [Mass/Vol] 12.4 g/dL Normal 11.5-15.5 [facility] Comment on above: Order Comment: Speci men Type: BLOOD SPECIMEN Ordering Facility: [facility] Address: [address] [place] [address] Performed By: #### 5 8410-2 #### [facility] CLIA [id number] [address] [place] [address] [place] MCH (RBC) [Entitic mass] 28.8 pg Normal 26.0-34.0 [facility] Comment on above: Order Comment: Speci men Type: BLOOD SPECIMEN Ordering Facility: [facility] Address: [address] [place] [address] Performed By: #### 5 8410-2 #### [facility] CLIA [id number] [address] [place] [address] [place] MCHC (RBC) [Mass/Vol] 33.8 g/dL Normal 30.5-36.0 [facility] Comment on above: Order Comment: Speci men Type: BLOOD SPECIMEN Ordering Facility: [facility] Address: [address] [place] [address] Performed By: #### 5 8410-2 #### [facility] CLIA [id number] [address] [place] [address] [place] MCV (RBC) [Entitic vol] 85.3 fL Normal 80.0-100.0 [facility] Comment on above: Order Comment: Speci men Type: BLOOD SPECIMEN Ordering Facility: [facility] Address: [address] [place] [address] Performed By: #### 5 8410-2 #### [facility] CLIA [id number] [address] [place] [address] [place] Nucleated RBC (Bld) [#/Vol] 10*3/uL Normal <0.01 [facility] Comment on above: Order Comment: Speci men Type: BLOOD SPECIMEN Ordering Facility: [facility] Address: [address] [place] [address] Performed By: #### 5 8410-2 #### [facility] CLIA [id number] [address] [place] [address] [place] Platelet mean volume (Bld) [Entitic vol] 9.6 fL Normal 9.0-12.7 [facility] Comment on above: Order Comment: Speci men Type: BLOOD SPECIMEN Ordering Facility: [facility] Address: [address] [place] [address] Performed By: #### 5 8410-2 #### [facility] CLIA [id number] [address] [place] [address] [place] Platelets (Bld) [#/Vol] 324 10*3/uL Normal 150-400 [facility] Comment on above: Order Comment: Speci men Type: BLOOD SPECIMEN Ordering Facility: [facility] Address: [address] [place] [address] Performed By: #### 5 8410-2 #### [facility] CLIA [id number] [address] [place] [address] [place] RBC (Bld) [#/Vol] 4.30 10*6/uL Normal 3.90-5.20 [facility] Comment on above: Order Comment: Speci men Type: BLOOD SPECIMEN Ordering Facility: [facility] Address: [address] [place] [address] Performed By: #### 5 8410-2 #### [facility] CLIA [id number] [address] [place] [address] [place] WBC (Bld) [#/Vol] 7.18 10*3/uL Normal 3.70-11.00 [facility] Comment on above: Order Comment: Speci men Type: BLOOD SPECIMEN Ordering Facility: [facility] Address: [address] [place] [address] Performed By: #### 5 8410-2 #### [facility] CLIA [id number] [address] [place] [address] [place] CYTOMEGALOVIRUS (CMV) DNA, Q UANTITATIVE PCR, PLASMAon 07-15-2024 CMV DNA ISAK+probe Qn (P) Not detected Normal Not Detected [facility] Comment on above: Order Comment: Speci men Type: BLOOD SPECIMEN Ordering Facility: [facility] Address: [address] [place] [address] Performed By: #### 1 4196-0, 15133-6 #### [facility] CLIA [id number] [address] [place] [address] [place] Calprotectin (Stl) [Mass/Mas s]on 07-15-2024 CALPROTECTIN, FECAL QUANTITATIVE 78.1 ug/g High <50 [facility] Comment on above: Order Comment: Speci men Type: BLOOD SPECIMEN Ordering Facility: [facility] Address: [address] [place] [address] Performed By: #### 1 4196-0, 86502-5 #### [facility] CLIA [id number] [address] [place] [address] [place] Gastrointestinal pathogens p carlos ISAK+probe (Stl)on 07-15-2024 ADENOVIRUS F 40/41 DNA Not detected Normal Not Detected [facility] Comment on above: Order Comment: Speci men Type: BLOOD SPECIMEN Ordering Facility: [facility] Address: [address] [place] [address] Performed By: #### 1 4196-0, 33668-2 #### [facility] CLIA [id number] [address] [place] [address] [place] ASTROVIRUS RNA Not detected Normal Not Detected [facility] Comment on above: Order Comment: Speci men Type: BLOOD SPECIMEN Ordering Facility: [facility] Address: [address] [place] [address] Performed By: #### 1 4196-0, 62115-4 #### [facility] CLIA [id number] [address] [place] [address] [place] C. cayetanensis DNA ISAK+probe Ql (Unsp spec) Not detected Normal Not Detected [facility] Comment on above: Order Comment: Speci men Type: BLOOD SPECIMEN Ordering Facility: [facility] Address: [address] [place] [address] Performed By: #### 1 4196-0, 37145-7 #### [facility] CLIA [id number] [address] [place] [address] [place] Campylobacter sp DNA.diarrheagenic ISAK+probe Ql (Stl) Not detected Normal Not Detected [facility] Comment on above: Order Comment: Speci men Type: BLOOD SPECIMEN Ordering Facility: [facility] Address: [address] [place] [address] Performed By: #### 1 4196-0, 28299-3 #### [facility] CLIA [id number] [address] [place] [address] [place] Cryptosporidium sp DNA ISAK+probe Ql (Unsp spec) Not detected Normal Not Detected [facility] Comment on above: Order Comment: Speci men Type: BLOOD SPECIMEN Ordering Facility: [facility] Address: [address] [place] [address] Performed By: #### 1 4196-0, 25020-3 #### [facility] CLIA [id number] [address] [place] [address] [place] E. coli O157:H7 DNA ISAK+probe Ql (Unsp spec) Not applicable Normal Not detected [facility] Comment on above: Order Comment: Speci men Type: BLOOD SPECIMEN Ordering Facility: [facility] Address: [address] [place] [address] Performed By: #### 1 4196-0, 61078-9 #### [facility] CLIA [id number] [address] [place] [address] [place] E. coli stx1+stx2 genes ISAK+probe Ql (Stl) Not detected Normal Not Detected [facility] Comment on above: Order Comment: Speci men Type: BLOOD SPECIMEN Ordering Facility: [facility] Address: [address] [place] [address] Performed By: #### 1 4196-0, 79448-7 #### [facility] CLIA [id number] [address] [place] [address] [place] E. histolytica DNA ISAK+probe Ql (Unsp spec) Not detected Normal Not Detected [facility] Comment on above: Order Comment: Speci men Type: BLOOD SPECIMEN Ordering Facility: [facility] Address: [address] [place] [address] Performed By: #### 1 4196-0, 02263-1 #### [facility] CLIA [id number] [address] [place] [address] [place] ENTEROAGGREGATIVE E. COLI (EAEC) DNA Not detected Normal Not Detected [facility] Comment on above: Order Comment: Speci men Type: BLOOD SPECIMEN Ordering Facility: [facility] Address: [address] [place] [address] Performed By: #### 1 4196-0, 59789-6 #### [facility] CLIA [id number] [address] [place] [address] [place] ENTEROPATHOGENIC E. COLI (EPEC) DNA Not detected Normal Not detected [facility] Comment on above: Order Comment: Speci men Type: BLOOD SPECIMEN Ordering Facility: [facility] Address: [address] [place] [address] Performed By: #### 1 4196-0, 20026-7 #### [facility] CLIA [id number] [address] [place] [address] [place] ENTEROTOXIGENIC E. COLI (ETEC) DNA Not detected Normal Not Detected [facility] Comment on above: Order Comment: Speci men Type: BLOOD SPECIMEN Ordering Facility: [facility] Address: [address] [place] [address] Performed By: #### 1 4196-0, 70113-2 #### [facility] CLIA [id number] [address] [place] [address] [place] G. lamblia DNA ISAK+probe Ql (Unsp spec) Not detected Normal Not Detected [facility] Comment on above: Order Comment: Speci men Type: BLOOD SPECIMEN Ordering Facility: [facility] Address: [address] [place] [address] Performed By: #### 1 4196-0, 89975-5 #### [facility] CLIA [id number] [address] [place] [address] [place] NOROVIRUS GI/GII RNA Not detected Normal Not Detected [facility] Comment on above: Order Comment: Speci men Type: BLOOD SPECIMEN Ordering Facility: [facility] Address: [address] [place] [address] Performed By: #### 1 4196-0, 28256-5 #### [facility] CLIA [id number] [address] [place] [address] [place] PLESIOMONAS SHIGELLOIDES DNA Not detected Normal Not Detected [facility] Comment on above: Order Comment: Speci men Type: BLOOD SPECIMEN Ordering Facility: [facility] Address: [address] [place] [address] Performed By: #### 1 4196-0, 12651-7 #### [facility] CLIA [id number] [address] [place] [address] [place] ROTAVIRUS A RNA Not detected Normal Not Detected [facility] Comment on above: Order Comment: Speci men Type: BLOOD SPECIMEN Ordering Facility: [facility] Address: [address] [place] [address] Performed By: #### 1 4196-0, 55081-2 #### [facility] CLIA [id number] [address] [place] [address] [place] Salmonella sp DNA ISAK+probe Ql (Unsp spec) Not detected Normal Not Detected [facility] Comment on above: Order Comment: Speci men Type: BLOOD SPECIMEN Ordering Facility: [facility] Address: [address] [place] [address] Performed By: #### 1 4196-0, 28669-6 #### [facility] CLIA [id number] [address] [place] [address] [place] SAPOVIRUS (GENOGROUPS I, II, IV, V) RNA Not detected Normal Not Detected [facility] Comment on above: Order Comment: Speci men Type: BLOOD SPECIMEN Ordering Facility: [facility] Address: [address] [place] [address] Performed By: #### 1 4196-0, 17969-4 #### [facility] CLIA [id number] [address] [place] [address] [place] Shigella species+EIEC invasion plasmid antigen H ipaH gene ISAK+probe Ql (Stl) Not detected Normal Not Detected [facility] Comment on above: Order Comment: Speci men Type: BLOOD SPECIMEN Ordering Facility: [facility] Address: [address] [place] [address] Performed By: #### 1 4196-0, 36029-1 #### [facility] CLIA [id number] [address] [place] [address] [place] V. cholerae DNA ISAK+probe Ql (Unsp spec) Not detected Normal Not Detected [facility] Comment on above: Order Comment: Speci men Type: BLOOD SPECIMEN Ordering Facility: [facility] Address: [address] [place] [address] Performed By: #### 1 4196-0, 11090-6 #### [facility] CLIA [id number] [address] [place] [address] [place] Vibrio sp DNA ISAK+probe Nom (Unsp spec) Not detected Normal Not Detected [facility] Comment on above: Order Comment: Speci men Type: BLOOD SPECIMEN Ordering Facility: [facility] Address: [address] [place] [address] Performed By: #### 1 4196-0, 21126-0 #### [facility] CLIA [id number] [address] [place] [address] [place] Yersinia sp DNA ISAK+probe Nom (Unsp spec) Not detected Normal Not Detected [facility] Comment on above: Order Comment: Speci men Type: BLOOD SPECIMEN Ordering Facility: [facility] Address: [address] [place] [address] Performed By: #### 1 4196-0, 22432-2 #### [facility] CLIA [id number] [address] [place] [address] [place] HISTORY PHYSICALon HISTORY PHYSICAL HNO ID: [id number] Author: NÉSTOR GRECO MD Service: General Internal Medicine Author Type: Physician Type: H&P Filed: 07/15/2024 22:53 Note Text: DEPARTMENT OF HOSPITAL MEDICINE JHONNY Leon HISTORY AND PHYSICAL EXAM SERVICE DATE: 07/15/2024 SERVICE TIME: 3:06 AM Primary Care Physician: No primary care provider on file. NIGHT AND WEEKEND COVERAGE: [facility] COVERAGE: Nights: [phone], please page Team Jhonny Leon; overnight/admitting pager [phone] Subjective CHIEF COMPLAINT: ELPIDIO, UTI HPI: This [...] once daily. (more content not included)... Normal [facility] Magnesium [facility] Magnesium [Mass/Vol] 1.8 mg/dL Normal 1.7-2.3 [facility] Comment on above: Order Comment: Speci men Type: BLOOD SPECIMEN Ordering Facility: [facility] Address: [address] [place] [address] Performed By: #### 1 4196-0, 04130-0 #### [facility] CLIA [id number] [address] [place] [address] [place] [facility] NUTRITIONon 07-15-2024 NUTRITION HNO ID: [id number] Author: DORIE MCCONNELL RD Service: Nutrition Therapy [...] Weight Type: Current weight Estimated kilocalorie needs: 6835-3002 Calorie Calculation Method: 35-45 kcals/kg Estimated protein needs (grams): 43-54 Grams protein determined by: 1.2 - 1.5 g/kg (monitor renal function) Diet Orders (From admission, onward) Start Ordered 07/15/24 1100 DIET GASTRO INTESTINAL START NOW Question: Gastro Intestinal Answer: GLUTEN CONTROLLED 07/15/24 0701 Anthropometrics: Height: 144.8 cm (4' 9.01) Weight: [...] July 15, 2024 TIME: 11:19 AM Normal [facility] Renal function 2000 panelon 07-15-2024 Albumin [Mass/Vol] 3.4 g/dL Low 3.9-4.9 [facility] Comment on above: Order Comment: Speci men Type: BLOOD SPECIMEN Ordering Facility: [facility] Address: [address] [place] [address] Result Comment: Resu lt rechecked. Performed By: #### 1 4196-0, 47672-0 #### [facility] CLIA [id number] [address] [place] [address] [place] Anion gap [Moles/Vol] 13 mmol/L Normal 8-15 [facility] Comment on above: Order Comment: Speci men Type: BLOOD SPECIMEN Ordering Facility: [facility] Address: [address] [place] [address] Performed By: #### 1 4196-0, 44787-4 #### [facility] CLIA [id number] [address] [place] [address] [place] Calcium [Mass/Vol] 8.6 mg/dL Normal 8.5-10.2 [facility] Comment on above: Order Comment: Speci men Type: BLOOD SPECIMEN Ordering Facility: [facility] Address: [address] [place] [address] Performed By: #### 1 4196-0, 44498-3 #### [facility] CLIA [id number] [address] [place] [address] [place] Chloride [Moles/Vol] 100 mmol/L Normal 98-107 [facility] Comment on above: Order Comment: Speci men Type: BLOOD SPECIMEN Ordering Facility: [facility] Address: [address] [place] [address] Performed By: #### 1 4196-0, 31418-4 #### [facility] CLIA [id number] [address] [place] [address] [place] CO2 [Moles/Vol] 21 mmol/L Low 22-30 [facility] Comment on above: Order Comment: Speci men Type: BLOOD SPECIMEN Ordering Facility: [facility] Address: [address] [place] [address] Performed By: #### 1 4196-0, 93132-5 #### [facility] CLIA [id number] [address] [place], [place] [id number] [place] Creatinine [Mass/Vol] 1.98 mg/dL High 0.58-0.96 [facility] Comment on above: Order Comment: Kelly mcdaniel Type: BLOOD SPECIMEN Ordering Facility: [facility] Address: [address] [place] [address] Performed By: #### 1 4196-0, 17013-2 #### [facility] CLIA [id number] [address] [place] [address] [place] Creatinine and Glomerular filtration rate.predicted panel (S/P/Bld) 33 mL/min/1.73m??? Low >=60 [facility] Comment on above: Order Comment: Kelly mcdaniel Type: BLOOD SPECIMEN Ordering Facility: [facility] Address: [address] [place] [address] Result Comment: Cassy mated Glomerular Filtration Rate [...] actual GFR. Performed By: #### 1 4196-0, 38727-1 #### [facility] CLIA [id number] [address] [place] [address] [place] Glucose [Mass/Vol] 84 mg/dL Normal 74-99 [facility] Comment on above: Order Comment: Speci men Type: BLOOD SPECIMEN Ordering Facility: [facility] Address: [address] [place] [address] Result Comment: The [place] [employer] (ADA) [...] 2016.39(Suppl 1). Performed By: #### 1 4196-0, 73963-2 #### [facility] CLIA [id number] [address] [place] [address] [place] Phosphate [Mass/Vol] 2.8 mg/dL Normal 2.7-4.8 [facility] Comment on above: Order Comment: Speci men Type: BLOOD SPECIMEN Ordering Facility: [facility] Address: [address] [place] [address] Performed By: #### 1 4196-0, 72131-5 #### [facility] CLIA [id number] [address] [place] [address] [place] Potassium [Moles/Vol] 3.3 mmol/L Low 3.7-5.1 [facility] Comment on above: Order Comment: Speci men Type: BLOOD SPECIMEN Ordering Facility: [facility] Address: [address] [place] [address] Performed By: #### 1 4196-0, 13345-1 #### [facility] CLIA [id number] [address] [place] [address] [place] Sodium [Moles/Vol] 134 mmol/L Low 136-144 [facility] Comment on above: Order Comment: Speci men Type: BLOOD SPECIMEN Ordering Facility: [facility] Address: [address] [place] [address] Performed By: #### 1 4196-0, 52514-7 #### [facility] CLIA [id number] [address] [place] [address] [place] Urea nitrogen [Mass/Vol] 20 mg/dL Normal 7-21 [facility] Comment on above: Order Comment: Speci men Type: BLOOD SPECIMEN Ordering Facility: [facility] Address: [address] [place] [address] Performed By: #### 1 4196-0, 80460-8 #### [facility] CLIA [id number] [address] [place] [address] [place] [address] [place] US KIDNEY/BLADDERon 07-16-19 25 US KIDNEY/BLADDER * * *Final Report* * * DATE OF EXAM: Jul 15 2024 2:50PM [facility] 1055 - US KIDNEY/BLADDER / PROCEDURE REASON: [...] Recommendation: US FEMALE PELVIS NON-OB NON TORSION ([id number]) Time Frame: At the discretion of the clinical team. COMMUNICATION: Results will be communicated with the ordering provider via Pounce staff message or phone message by [employer] within 2 business days of report finalization. --END OF FINDING-- [employer]: PSCMyranda Transcribe Date/Time: Jul 15 2024 2:59P Dictated by : LEIGHTON MATIAS MD This examination was interpreted and the report reviewed and electronically signed by: LOTTIE MATHEW MD on Jul 15 2024 3:19PM EST [id number] [id number] Invalid Interpretation Code [facility] Urinalysis complete panel (U )on 07-15-2024 Bacteria LM.HPF (Urine sed) [#/Area] Negative Normal Negative [facility] Comment on above: Order Comment: Speci men Type: BLOOD SPECIMEN Ordering Facility: [facility] Address: [address] [place] [address] Performed By: #### 1 4196-0, 37765-4 #### [facility] CLIA [id number] [address] [place] [address] [place] Bilirubin Ql (U) Negative Normal Negative [facility] Comment on above: Order Comment: Speci men Type: BLOOD SPECIMEN Ordering Facility: [facility] Address: [address] [place] [address] Performed By: #### 1 4196-0, 80711-5 #### [facility] CLIA [id number] [address] [place] [address] [place] Clarity (Unsp spec) Clear Normal Clear [facility] Comment on above: Order Comment: Speci men Type: BLOOD SPECIMEN Ordering Facility: [facility] Address: [address] [place] [address] Performed By: #### 1 4196-0, 72553-5 #### [facility] CLIA [id number] [address] [place] [address] OF [facility] Color (U) Yellow Normal Yellow [facility] Comment on above: Order Comment: Speci men Type: BLOOD SPECIMEN Ordering Facility: [facility] Address: [address] [place] [address] Performed By: #### 1 4196-0, 97346-4 #### [facility] CLIA [id number] [address] [place] [address] [place] Epithelial cells LM.HPF (Urine sed) [#/Area] None Seen Normal [facility] Comment on above: Order Comment: Speci men Type: BLOOD SPECIMEN Ordering Facility: [facility] Address: [address] [place] [address] Performed By: #### 1 4196-0, 73421-8 #### [facility] CLIA [id number] [address] [place] [address] [place] Glucose Test strip (U) [Mass/Vol] Negative Normal Negative [facility] Comment on above: Order Comment: Speci men Type: BLOOD SPECIMEN Ordering Facility: [facility] Address: [address] [place] [address] Performed By: #### 1 4196-0, 52039-0 #### [facility] CLIA [id number] [address] [place] [address] [place] Hemoglobin Ql (U) Negative Normal Negative [facility] Comment on above: Order Comment: Speci men Type: BLOOD SPECIMEN Ordering Facility: [facility] Address: [address] [place] [address] Performed By: #### 1 4196-0, 20839-0 #### [facility] CLIA [id number] [address] [place] [address] [place] Hyaline casts (Urine sed) [#/Area] 0 /[LPF] Normal 0 /LPF [facility] Comment on above: Order Comment: Speci men Type: BLOOD SPECIMEN Ordering Facility: [facility] Address: [address] [place] [address] Performed By: #### 1 4196-0, 12926-9 #### [facility] CLIA [id number] [address] [place] [address] [place] [facility] Ketones Ql (U) Negative Normal Negative [facility] Comment on above: Order Comment: Speci men Type: BLOOD SPECIMEN Ordering Facility: [facility] Address: [address] [place] [address] Performed By: #### 1 4196-0, 78152-5 #### [facility] CLIA [id number] [address] [place] [address] [place] Leukocyte esterase Test strip Ql (U) Trace Abnormal Negative [facility] Comment on above: Order Comment: Speci men Type: BLOOD SPECIMEN Ordering Facility: [facility] Address: [address] [place] [address] Performed By: #### 1 4196-0, 31980-2 #### [facility] CLIA [id number] [address] [place] [address] [place] Nitrite Ql (U) Negative Normal Negative [facility] Comment on above: Order Comment: Speci men Type: BLOOD SPECIMEN Ordering Facility: [facility] Address: [address] [place] [address] Performed By: #### 1 4196-0, 57417-3 #### [facility] CLIA [id number] [address] [place], [place] [address] [place] pH (U) 6.0 [pH] Normal <8.5 [facility] Comment on above: Order Comment: Speci men Type: BLOOD SPECIMEN Ordering Facility: [facility] Address: [address] [place] [address] Performed By: #### 1 4196-0, 78745-1 #### [facility] CLIA [id number] [address] [place], [place] [address] [place] Protein (U) [Mass/Vol] Negative Normal Negative [facility] Comment on above: Order Comment: Speci men Type: BLOOD SPECIMEN Ordering Facility: [facility] Address: [address] [place] [address] Performed By: #### 1 4196-0, 39120-8 #### [facility] CLIA [id number] [address] [place] [address] [place] RBC LM.HPF (Urine sed) [#/Area] 0-2 /HPF Normal 0-2 /HPF [facility] Comment on above: Order Comment: Speci men Type: BLOOD SPECIMEN Ordering Facility: [facility] Address: [address] [place] [address] Performed By: #### 1 4196-0, 45421-0 #### [facility] CLIA [id number] [address] [place] [address] [place] Specific gravity (U) [Rel density] 1.008 Normal 1.005-1.03 0 [facility] Comment on above: Order Comment: Speci men Type: BLOOD SPECIMEN Ordering Facility: [facility] Address: [address] [place] [address] Performed By: #### 1 4196-0, 73853-8 #### [facility] CLIA [id number] [address] [place] [address] [place] Urobilinogen Ql (U) 0.2 EU/dL Normal 0.2-1.0 EU/dL [facility] Comment on above: Order Comment: Speci men Type: BLOOD SPECIMEN Ordering Facility: [facility] Address: [address] [place] [address] Performed By: #### 1 4196-0, 45650-5 #### [facility] CLIA [id number] [address] [place] [address] [place] WBC LM.HPF (Urine sed) [#/Area] 0-5 /HPF Normal 0-5 /HPF [facility] Comment on above: Order Comment: Speci men Type: BLOOD SPECIMEN Ordering Facility: [facility] Address: [address] [place] [address] Performed By: #### 1 4196-0, 10089-1 #### [facility] CLIA [id number] [address] [place] [address] [place] [address] [place] CBC W Auto Differential pane l (Bld)on 07-14-2024 Basophils (Bld) [#/Vol] 0.07 10*3/uL Normal <0.11 [facility] Comment on above: Order Comment: Speci men Type: BLOOD SPECIMENOrdering Facility: [facility] Address: [address] [place] [address] Performed By: #### 5 7021-8 ####[facility] [id number] [place] [address] [place] Basophils/100 WBC (Bld) 0.5 % Normal [facility] Comment on above: Order Comment: Speci men Type: BLOOD SPECIMENOrdering Facility: [facility] Address: [address] [place] [address] Performed By: #### 5 7021-8 ####[facility]ORYCLIA [id number] [place] [address] [place] Differential cell count method Nom (Bld) Auto Normal [facility] Comment on above: Order Comment: Speci men Type: BLOOD SPECIMENOrdering Facility: [facility] Address: [address] [place] [address] Performed By: #### 5 7021-8 ####[facility]ORYCLIA [id number] [place] [address] [place] Eosinophils (Bld) [#/Vol] 0.12 10*3/uL Normal <0.46 [facility] Comment on above: Order Comment: Speci men Type: BLOOD SPECIMENOrdering Facility: [facility] Address: [address] [place] [address] Performed By: #### 5 7021-8 ####[facility]ORYCLIA [id number] [place] [address] [place] Eosinophils/100 WBC (Bld) 0.9 % Normal [facility] Comment on above: Order Comment: Speci men Type: BLOOD SPECIMENOrdering Facility: [facility] Address: [address] [place] [address] Performed By: #### 5 7021-8 ####[facility]IA [id number] [place] [address] [place] Erythrocyte distribution width (RBC) [Ratio] 14.1 % Normal 11.5-15.0 [facility] Comment on above: Order Comment: Speci men Type: BLOOD SPECIMENOrdering Facility: [facility] Address: [address] [place] [address] Performed By: #### 5 7021-8 ####[facility] [id number] [address] [place] Hematocrit (Bld) [Volume fraction] 45.8 % Normal 36.0-46.0 [facility] Comment on above: Order Comment: Speci men Type: BLOOD SPECIMENOrdering Facility: [facility] Address: [address] [place] [address] Performed By: #### 5 7021-8 ####[facility] [id number] [place] [address] [place] Hemoglobin (Bld) [Mass/Vol] 15.7 g/dL High 11.5-15.5 [facility] Comment on above: Order Comment: Speci men Type: BLOOD SPECIMENOrdering Facility: [facility] Address: [address] [place] [address] Performed By: #### 5 7021-8 ####[facility] [id number] [place] [address] [place] Immature granulocytes (Bld) [#/Vol] 0.08 10*3/uL Normal <0.10 [facility] Comment on above: Order Comment: Speci men Type: BLOOD SPECIMENOrdering Facility: [facility] Address: [address] [place] [address] Performed By: #### 5 7021-8 ####[facility]ORYCLIA [id number] [address] Immature granulocytes/100 WBC (Bld) 0.6 % Normal [facility] Comment on above: Order Comment: Speci men Type: BLOOD SPECIMENOrdering Facility: [facility] Address: [address] [place] [address] Performed By: #### 5 7021-8 ####[facility]ORATORYIA [id number] [place] [address] [place] Lymphocytes (Bld) [#/Vol] 2.10 10*3/uL Normal 1.00-4.00 [facility] Comment on above: Order Comment: Speci men Type: BLOOD SPECIMENOrdering Facility: [facility] Address: [address] [place] [address] Performed By: #### 5 7021-8 ####[facility]ORYIA [id number] [address] Lymphocytes/100 WBC (Bld) 15.8 % Normal [facility] Comment on above: Order Comment: Speci men Type: BLOOD SPECIMENOrdering Facility: [facility] Address: [address] [place] [address] Performed By: #### 5 7021-8 ####[facility]ATORYCLIA [id number] [place] [address] [place] MCH (RBC) [Entitic mass] 28.9 pg Normal 26.0-34.0 [facility] Comment on above: Order Comment: Speci men Type: BLOOD SPECIMENOrdering Facility: [facility] Address: [address] [place] [address] Performed By: #### 5 7021-8 ####[facility]ORYCLIA [id number] [place] [address] [place] MCHC (RBC) [Mass/Vol] 34.3 g/dL Normal 30.5-36.0 [facility] Comment on above: Order Comment: Speci men Type: BLOOD SPECIMENOrdering Facility: [facility] Address: [address] [place] [address] Performed By: #### 5 7021-8 ####[facility]ORATORYIA [id number] [address] [place] MCV (RBC) [Entitic vol] 84.2 fL Normal 80.0-100.0 [facility] Comment on above: Order Comment: Speci men Type: BLOOD SPECIMENOrdering Facility: [facility] Address: [address] [place] [address] Performed By: #### 5 7021-8 ####[facility] [id number] [place] [address] [place] Monocytes (Bld) [#/Vol] 0.95 10*3/uL High <0.87 [facility] Comment on above: Order Comment: Speci men Type: BLOOD SPECIMENOrdering Facility: [facility] Address: [address] [place] [address] Performed By: #### 5 7021-8 ####[facility]ORYIA [id number] [address] STATES OF [facility] Monocytes/100 WBC (Bld) 7.1 % Normal [facility] Comment on above: Order Comment: Speci men Type: BLOOD SPECIMENOrdering Facility: [facility] Address: [address] [place] [address] Performed By: #### 5 7021-8 ####[facility]ORYIA [id number] [place] [address] [place] Neutrophils (Bld) [#/Vol] 9.98 10*3/uL High 1.45-7.50 [facility] Comment on above: Order Comment: Speci men Type: BLOOD SPECIMENOrdering Facility: [facility] Address: [address] [place] [address] Performed By: #### 5 7021-8 ####[facility]ORYIA [id number] [address] Neutrophils/100 WBC (Bld) 75.1 % Normal [facility] Comment on above: Order Comment: Speci men Type: BLOOD SPECIMENOrdering Facility: [facility] Address: [address] [place] [address] Performed By: #### 5 7021-8 ####[facility]ORYIA [id number] [place] [address] [place] Nucleated RBC (Bld) [#/Vol] 10*3/uL Normal <0.01 [facility] Comment on above: Order Comment: Speci men Type: BLOOD SPECIMENOrdering Facility: [facility] Address: [address] [place] [address] Performed By: #### 5 7021-8 ####[facility]ORYIA [id number] [place] [address] [place] Nucleated RBC/100 WBC (Bld) [Ratio] 0.0 /100 WBC Normal [facility] Comment on above: Order Comment: Speci men Type: BLOOD SPECIMENOrdering Facility: [facility] Address: [address] [place] [address] Performed By: #### 5 7021-8 ####[facility]ORYIA [id number] [address] [place] Platelet mean volume (Bld) [Entitic vol] 8.9 fL Low 9.0-12.7 [facility] Comment on above: Order Comment: Speci men Type: BLOOD SPECIMENOrdering Facility: [facility] Address: [address] [place] [address] Performed By: #### 5 7021-8 ####[facility]ORYIA [id number] [address] [place] Platelets (Bld) [#/Vol] 451 10*3/uL High 150-400 [facility] Comment on above: Order Comment: Speci men Type: BLOOD SPECIMENOrdering Facility: [facility] Address: [address] [place] [address] Performed By: #### 5 7021-8 ####[facility]ATORYCLIA [id number] [place] [address] [place] RBC (Bld) [#/Vol] 5.44 10*6/uL High 3.90-5.20 [facility] Comment on above: Order Comment: Speci men Type: BLOOD SPECIMENOrdering Facility: [facility] Address: [address] [place] [address] Performed By: #### 5 7021-8 ####[facility]ATORYCLIA [id number] [place] [address] [place] WBC (Bld) [#/Vol] 13.30 10*3/uL High 3.70-11.00 [facility] Comment on above: Order Comment: Speci men Type: BLOOD SPECIMENOrdering Facility: [facility] Address: [address] [place] [address] Performed By: #### 5 7021-8 ####[facility]ORYCLIA [id number] [place] [address] [place] CRP SerPl-mCncon 07-14-2024 CRP [Mass/Vol] 1.1 mg/dL High <0.9 [facility] Comment on above: Order Comment: Speci men Type: BLOOD SPECIMEN [facility] Address: [address] [place] [address] Performed By: #### 1 4196-0, 37937-8 #### [facility] CLIA [id number] [address] [place] [address] [place] [address] [place] Comprehensive metabolic 2000 panelon 07-14-2024 Albumin [Mass/Vol] 4.9 g/dL Normal 3.9-4.9 [facility] Comment on above: Order Comment: Speci men Type: BLOOD SPECIMEN Ordering Facility[facility] Address: [address] [place] [address] Performed By: #### 1 4196-0, 68682-1 #### [facility] CLIA [id number] [address] [place] [address] [place] ALP [Catalytic activity/Vol] 143 U/L High 34-123 [facility] Comment on above: Order Comment: Speci men Type: BLOOD SPECIMEN Ordering Facility[facility] Address: [address] [place] [address] Performed By: #### 1 4196-0, 25178-8 #### [facility] CLIA [id number] [address] [place] [address] [place] ALT [Catalytic activity/Vol] 23 U/L Normal 7-38 [facility] Comment on above: Order Comment: Speci men Type: BLOOD SPECIMEN Ordering Facility: [facility] Address: [address] [place] [address] Performed By: #### 1 4196-0, 63545-6 #### [facility] CLIA [id number] [address] [place] [address] [place] Anion gap [Moles/Vol] 18 mmol/L High 8-15 [facility] Comment on above: Order Comment: Speci men Type: BLOOD SPECIMEN Ordering [facility] Address: [address] [place] [address] Performed By: #### 1 4196-0, 12692-7 #### [facility] CLIA [id number] [address] [place] [address] [place] AST [Catalytic activity/Vol] 34 U/L Normal 13-35 [facility] Comment on above: Order Comment: Speci men Type: BLOOD SPECIMEN Ordering Facility[facility] Address: [address] [place], [place] [address] Performed By: #### 1 4196-0, 99446-6 #### [facility] CLIA [id number] [address] [place] [address] [place] Bilirubin [Mass/Vol] 0.4 mg/dL Normal 0.2-1.3 [facility] Comment on above: Order Comment: Speci men Type: BLOOD SPECIMEN Ordering Facility[facility] Address: [address] [place] [address] Performed By: #### 1 4196-0, 57117-2 #### [facility] CLIA [id number] [address] [place] [address] [place] Calcium [Mass/Vol] 9.9 mg/dL Normal 8.5-10.2 [facility] Comment on above: Order Comment: Speci men Type: BLOOD SPECIMEN [facility] Address: [address] [place] [address] Performed By: #### 1 4196-0, 63809-4 #### [facility] CLIA [id number] [address] [place] [address] [place] Chloride [Moles/Vol] 89 mmol/L Low 98-107 [facility] Comment on above: Order Comment: Speci men Type: BLOOD SPECIMEN [facility] Address: [address] [place] [address] Performed By: #### 1 4196-0, 90948-5 #### [facility] CLIA [id number] [address] [place] [address] [place] CO2 [Moles/Vol] 25 mmol/L Normal 22-30 [facility] Comment on above: Order Comment: Speci men Type: BLOOD SPECIMEN [facility] Address: [address] [place] [address] Performed By: #### 1 4196-0, 15650-4 #### [facility] CLIA [id number] [address] [place] [address] [place] Creatinine [Mass/Vol] 3.50 mg/dL High 0.58-0.96 [facility] Comment on above: Order Comment: Kelly mcdaniel Type: BLOOD SPECIMEN [facility] Address: [address] [place] [address] Performed By: #### 1 4196-0, 22771-7 #### [facility] CLIA [id number] [address] [place] [address] [place] Creatinine and Glomerular filtration rate.predicted panel (S/P/Bld) 17 mL/min/1.73m??? Low >=60 [facility] Comment on above: Order Comment: Kelly mcdaniel Type: BLOOD SPECIMEN Order[facility] Address: [address] [place] [address] Result Comment: Cassy mated Glomerular Filtration Rate [...] actual GFR. Performed By: #### 1 4196-0, 19862-5 #### [facility] CLIA [id number] [address] [place] [address] [place] Glucose [Mass/Vol] 102 mg/dL High 74-99 [facility] Comment on above: Order Comment: Kelly mcdaniel Type: BLOOD SPECIMEN Ordering Facility: [facility] Address: [address] [place] [address] Result Comment: The [place] [employer] (ADA) [...] 2016.39(Suppl 1). Performed By: #### 1 4196-0, 94903-7 #### [facility] CLIA [id number] [address] [place] [address] [place] Potassium [Moles/Vol] 3.7 mmol/L Normal 3.7-5.1 [facility] Comment on above: Order Comment: Kelly mcdaniel Type: BLOOD SPECIMEN Order[facility] Facility[facility] Address: [address] [place] [address] Performed By: #### 1 4196-0, 64346-6 #### [facility] CLIA [id number] [address] [place] [address] [place] Protein [Mass/Vol] 8.4 g/dL High 6.3-8.0 [facility] Comment on above: Order Comment: Kelly mcdaniel Type: BLOOD SPECIMEN Ordering Facility[facility] Address: [address] [place] [address] Performed By: #### 1 4196-0, 57959-4 #### [facility] CLIA [id number] [address] [place] [address] [place] Sodium [Moles/Vol] 132 mmol/L Low 136-144 [facility] Comment on above: Order Comment: Kelly mcdaniel Type: BLOOD SPECIMEN Ordering Facility[facility] Address: [address] [place] [address] Performed By: #### 1 4196-0, 09663-3 #### [facility] CLIA [id number] [address] [place], [place] [address] [place] Urea nitrogen [Mass/Vol] 28 mg/dL High 7-21 [facility] Comment on above: Order Comment: Speci men Type: BLOOD SPECIMEN Ordering Facility: [facility] Address: [address] [place] [address] Performed By: #### 1 4196-0, 97053-7 #### [facility] CLIA [id number] [address] [place] [address] [place] ED NOTEon 07-14-2024 ED NOTE HNO ID: [id number] Author: MIRI WAGNER, PURA Service: ASSESSMENT Author Type: Registered Nurse Type: ED Notes Filed: 07/14/2024 23:50 Note Text: MMT at bedside for report. Pt transferred to cot in stable condition and without incident. Normal [facility] ED NOTE HNO ID: [id number] Author: DORIE PAREDES CT Service: Emergency Medicine Author Type: Clinical Plumbing Engineer Type: ED Notes Filed: 07/14/2024 17:36 Note [...] that she did not use previously). Normal [facility] ED PROV NOTEon 07-14-2024 ED PROV NOTE HNO ID: [id number] Author: ALBA WOLFE DO Service: Emergency Medicine [...] Rhythm: Nor (more content not included)... Normal [facility] Magnesium SerPl-mCncon 07-14 Magnesium [Mass/Vol] 2.2 mg/dL Normal 1.7-2.3 [facility] Comment on above: Order Comment: Speci men Type: BLOOD SPECIMEN Ordering Facility[facility] Address: [address] [place] [address] Performed By: #### 1 4196-0, 58745-0 #### [facility] CLIA [id number] [address] [place] [address] [place] Urinalysis complete panel (U )on 07-14-2024 Bacteria LM.HPF (Urine sed) [#/Area] Few Abnormal None Seen [facility] Comment on above: Order Comment: Speci men Type: BLOOD SPECIMEN Ordering Facility: [facility] Address: [address] [place] [address] Performed By: #### 1 4196-0, 57078-5 #### [facility] CLIA [id number] [address] [place] [address] [place] Bilirubin Ql (U) 1+ Abnormal Negative [facility] Comment on above: Order Comment: Speci men Type: BLOOD SPECIMEN Ordering Facility: [facility] Address: [address] [place] [address] Result Comment: Sugg est correlation with clinical findings and serum bilirubin if clinically indicated. Performed By: #### 1 4196-0, 48159-5 #### [facility] CLIA [id number] [address] [place] [address] [place] Clarity (Unsp spec) Slightly Cloudy Abnormal Clear [facility] Comment on above: Order Comment: Speci men Type: BLOOD SPECIMEN Ordering Facility: [facility] Address: [address] [place] [address] Performed By: #### 1 4196-0, 59975-9 #### [facility] CLIA [id number] [address] [place] [address] [place] Color (U) Yellow Normal Yellow [facility] Comment on above: Order Comment: Speci men Type: BLOOD SPECIMEN Ordering Facility: [facility] Address: [address] [place] [address] Performed By: #### 1 4196-0, 50665-8 #### [facility] CLIA [id number] [address] [place] [address] [place] Epithelial cells LM.HPF (Urine sed) [#/Area] Few Normal [facility] Comment on above: Order Comment: Speci men Type: BLOOD SPECIMEN Ordering Facility: [facility] Address: [address] [place] [address] Performed By: #### 1 4196-0, 06516-5 #### [facility] CLIA [id number] [address] [place] [address] [place] Glucose Test strip (U) [Mass/Vol] Negative Normal Negative [facility] Comment on above: Order Comment: Speci men Type: BLOOD SPECIMEN Ordering Facility: [facility] Address: [address] [place] [address] Performed By: #### 1 4196-0, 01608-5 #### [facility] CLIA [id number] [address] [place] [address] [place] Hemoglobin Ql (U) Trace Abnormal Negative [facility] Comment on above: Order Comment: Speci men Type: BLOOD SPECIMEN Ordering Facility: [facility] Address: [address] [place] [address] Performed By: #### 1 4196-0, 67208-2 #### [facility] CLIA [id number] [address] [place] [address] [place] Ketones Ql (U) 1+ Abnormal Negative [facility] Comment on above: Order Comment: Speci men Type: BLOOD SPECIMEN Ordering Facility: [facility] Address: [address] [place] [address] Performed By: #### 1 4196-0, 28919-1 #### [facility] CLIA [id number] [address] [place] [address] [place] Leukocyte esterase Test strip Ql (U) 1+ Abnormal Negative [facility] Comment on above: Order Comment: Speci men Type: BLOOD SPECIMEN Ordering Facility: [facility] Address: [address] [place] [address] Performed By: #### 1 4196-0, 82585-7 #### [facility] CLIA [id number] [address] [place] [address] [place] Nitrite Ql (U) Negative Normal Negative [facility] Comment on above: Order Comment: Speci men Type: BLOOD SPECIMEN Ordering Facility: [facility] Address: [address] [place] [address] Performed By: #### 1 4196-0, 18983-1 #### [facility] CLIA [id number] [address] [place] [address] [place] pH (U) 5.5 [pH] Normal 5.0-8.0 [facility] Comment on above: Order Comment: Speci men Type: BLOOD SPECIMEN Ordering Facility: [facility] Address: [address] [place] [address] Performed By: #### 1 4196-0, 63508-6 #### [facility] CLIA [id number] [address] [place] [address] [place] Protein (U) [Mass/Vol] 2+ Abnormal Negative [facility] Comment on above: Order Comment: Speci men Type: BLOOD SPECIMEN Ordering Facility: [facility] Address: [address] [place] [address] Performed By: #### 1 4196-0, 82119-7 #### [facility] CLIA [id number] [address] [place] [address] [place] RBC LM.HPF (Urine sed) [#/Area] 0-3 /HPF Normal 0-3 /HPF [facility] Comment on above: Order Comment: Speci men Type: BLOOD SPECIMEN Ordering Facility: [facility] Address: [address] [place] [address] Performed By: #### 1 4196-0, 40639-5 #### [facility] CLIA [id number] [address] [place] [address] [place] Specific gravity (U) [Rel density] 1.025 Normal 1.005-1.03 0 [facility] Comment on above: Order Comment: Speci men Type: BLOOD SPECIMEN Ordering Facility: [facility] Address: [address] [place] [address] Performed By: #### 1 4196-0, 45454-8 #### [facility] CLIA [id number] [address] [place] [address] [place] Urobilinogen Ql (U) 0.2 EU/dL Normal 0.2-1.0 EU/dL [facility] Comment on above: Order Comment: Speci men Type: BLOOD SPECIMEN Ordering Facility: [facility] Address: [address] [place] [address] Performed By: #### 1 4196-0, 77274-3 #### [facility] CLIA [id number] [address] [place] [address] [place] WBC LM.HPF (Urine sed) [#/Area] 6-10 /HPF Abnormal 0-5 /HPF [facility] Comment on above: Order Comment: Speci men Type: BLOOD SPECIMEN Ordering Facility: [facility] Address: [address] [place] [address] Performed By: #### 1 4196-0, 64807-3 #### [facility] CLIA [id number] [address] [place] [address] [place] CNCOon 07-02-2024 CNCO Letter Text Normal [facility] CNOVon 06-23-2024 CNOV Office Visit (OBGYWM ) PHILIPPE GR ([id number]) 1985 F Date Time Provider Department 06/23/24 1:20 PM CAREN HOUSER OBGYWJacob During your visit today, we recorded the following information about you: Blood pressure Weight Height Last Period 34.9 kg 1.448 m 06/20/24 Caren Houser MD 06/23/2024 2:16 PM Signed Obstetrics and Gynecology [place] Annual Exam Subjective Recording using ambient Cell-A-Spot software for draft documentation of the visit was discussed with the patient/authorized abrasives sales representative; all questions welcomed and answered. Patient/authorized abrasives sales representative agreed to proceed Vacuum Filter Operator: declined CHIEF COMPLAINT: Annual and pain from [...] Ectopic0 Multiple0 Live Births0 Comment: Surrogate-2 child Lining Inserter History LMP: 06/20/2024 (Exact Date), Having periods Age at Menarche: Age at First : Age at Menopause: Lining Inserter History Comments: Sexual Activity: Yes; Male Contraception: [...] History So (more content not included)... Normal [facility] HIGH RISK HUMAN PAPILLOMA NICHOLAS (HPV), PCR FOR DETECTION AND GENOTYPINGon 06-23-2024 HPV 16 Ag Ql (Unsp spec) Not detected Normal Not detected [facility] Comment on above: Order Comment: Speci men Type: FLUID SPECIMENOrdering Facility: [facility] Address: [address] [place] [address] Performed By: #### H PVHRT ####[facility] [id number] [address] [place] HPV 18 Ag Ql (Unsp spec) Not detected Normal Not detected [facility] Comment on above: Order Comment: Speci men Type: FLUID SPECIMENOrdering Facility: [facility] Address: [address] [place] [address] Performed By: #### H PVHRT ####[facility] [id number] [place] [address] [place] HPV 31+33+35+39+45+51+52+5 6+58+59+66+68 DNA ISAK+probe Ql (Cvx) Not detected Normal Not detected [facility] Comment on above: Order Comment: Speci men Type: FLUID SPECIMENOrdering Facility: [facility] Address: [address] [place] [address] Result Comment: High Risk HPV Other Type includes HPV types 31, 33, 35, 39, 45, 51, 52, 56, 58, 59, 66 and 68. Performed By: #### H PVHRT ####[facility] [id number] [place] [address] [place] PAP TESTon 06-23-2024 ADEQUACY Normal [facility] Comment on above: Order Comment: Speci men Type: BLOOD SPECIMEN Ordering Facility: [facility] Address: [address] [place] [address] Result Comment: Sati sfactory for interpretation. Transformation zone present Performed By: #### 1 4196-0, 82090-9 #### [facility] CLIA [id number] [address] [place], [place] [address] [place] CASE REPORT Normal [facility] Comment on above: Order Comment: Speci men Type: BLOOD SPECIMEN Ordering Facility: [facility] Address: [address] [place] [address] Result Comment: Gyne cologic Cytology Report Case: [id number] Authorizing Provider: Caren Houser, Collected: 06/23/2024 02:11 PM MD Ordering Location: OB/Gynecology Received: 06/24/2024 07:25 AM First Screen: Ashley Desai, CT, ASCP Specimen: Pap Test, ThinPrep, Cervix Performed By: #### 1 4196-0, 94170-6 #### [facility] CLIA [id number] [address] [place], [place] [address] [place] CLINICAL HISTORY, CYTOLOGY, LIFE SUPPORT TECHNICIAN Routine Exam Normal [facility] Comment on above: Order Comment: Speci men Type: BLOOD SPECIMEN Ordering Facility: [facility] Address: [address] [place] [address] Performed By: #### 1 4196-0, 64004-7 #### [facility] CLIA [id number] [address] [place] [address] [place] FINAL PERFORMING LAB Normal [facility] Comment on above: Order Comment: Speci men Type: BLOOD SPECIMEN Ordering Facility: [facility] Address: [address] [place] [address] Result Comment: Tech nical component, rotary drum dyer screening performed at [facility], [address] [place] [address] CLIA# [id number] Diagnostic interpretation performed at [facility], [address] [address] CLIA# [id number] Gauge Operator: Bernardo Cuevas M.D. Performed By: #### 1 4196-0, 53698-4 #### [facility] CLIA [id number] [address] [place] [address] [place] INTERPRETATION, CYTOLOGY, LIFE SUPPORT TECHNICIAN Normal [facility] Comment on above: Order Comment: Speci men Type: BLOOD SPECIMEN Ordering Facility: [facility] Address: [address] [place] [address] Result Comment: Nega tive for intraepithelial lesion or malignancy. at 1437 EDT Performed By: #### 1 4196-0, 80903-3 #### [facility] CLIA [id number] [address] [place] [address] [place] LMP 06/20/2024 Normal [facility] Comment on above: Order Comment: Speci men Type: BLOOD SPECIMEN Ordering Facility: [facility] Address: [address] [place] [address] Performed By: #### 1 4196-0, 49296-3 #### [facility] CLIA [id number] [address] [place] [address] [place] PAP DISCLAIMER COMMENT The Pap Smear is a screening test for cervical cancer. False negative results occur with all screening tests, emphasizing the need for rescreening at recommended intervals, and clinical correlation. Normal [facility] Comment on above: Order Comment: Speci men Type: BLOOD SPECIMEN Ordering Facility: [facility] Address: [address] [place] [address] Performed By: #### 1 4196-0, 26563-9 #### [facility] CLIA [id number] [address] [place] [address] [place] PAP DEPLOYMENT SPECIALIST COMMENT This specimen has be en analyzed by the ThinPrep Imaging System, an automated imaging and review system, which assists the laboratory in evaluating cells on ThinPrep Pap tests. Following automated imaging, selected ramsey from every slide are reviewed by a rotary drum dyer. Normal [facility] Comment on above: Order Comment: Speci men Type: BLOOD SPECIMEN Ordering Facility: [facility] Address: [address] [place] [address] Performed By: #### 1 4196-0, 23095-2 #### [facility] CLIA [id number] [address] [place] [address] L3410.9998on 06-05-2024 [facility] Misc. COMMENT Normal . [facility] Comment on above: Order Comment: STOOL [id number] OSMO Result Comment: Test Ordered: [id number] Osmolality, FecalOsmolality, Fecal 355 BN Units of Measure: mOsmol/kg Reference Range: Not Estab.Performed at: [facility] Lab[address] [id number] Director: Bettina Jimenez MD, Phone: [phone] at: [facility] Lab[address] [id number] Director: Juan C Valladares PhD, Phone: [phone] Performed By: #### L 7000.0300, L3410.9998 ####[facility] [address] [facility] [place], [place], [id number] Fecal Fat, Qualitativeon FATS, NEUTRAL Normal Normal . [facility] Comment on above: Order Comment: Test( s) 726457-Gymp, Neutral; 103348-Ufae, Totalwas developed and its performance characteristicsdetermined by [facility]. It has not been cleared or approvedby the Food and Drug Administration. Result Comment: Norm al (<60 Droplets/HPF) Performed By: #### L 7000.0300, L3410.9998 ####[facility] [address] [place], [address] FATS, TOTAL Normal Normal . [facility] Comment on above: Order Comment: Test( s) 099519-Pnla, Neutral; 176229-Fwto, Totalwas developed and its performance characteristicsdetermined by [employer] [facility] [employer]. It has not been cleared or approvedby the Food and Drug Administration. Result Comment: Norm al (<100 Droplets/HPF)Performed at: [address] [id number] Director: Juan C Valladares PhD, Phone: [phone] Performed By: #### L 7000.0300, L3410.9998 ####[facility] [address] [place], [place], [address] Absolute lymphocyte countOrd ered By: Antonio Roman on 06-03-2024 Lymphocytes Auto (Unsp spec) [#/Vol] 1.67 10*3/uL 0.83-4.[address] [facility] Absolute neutrophil countOrd ered By: Antonio Roman on 06-03-2024 Neutrophils (Bld) [#/Vol] 4.3 10*3/uL 2.0-7.[address] [facility] Anion gap in Serum or Plasma Ordered By: Antonio Roman on 06-03-2024 Anion gap [Moles/Vol] 12 mmol/L 5-15 [facility] Automated lymphocyte count a s percentage of total leukocytesOrdered By: Antonio Roman on 06-03-2024 Lymphocytes/100 WBC Auto (Unsp spec) 23.5 % 19-[address] [facility] BUN/creatinine ratioOrdered By: Antonio Roman on 06-03-2024 Urea nitrogen/Creatinine [Mass ratio] 8.7 mg/mg Low 10-[address] [facility] Basophil percentageOrdered B y: Antonio Roman on 06-03-2024 Basophils/100 WBC (Bld) 1.4 % High 0-[address] [facility] Bilirubin, totalOrdered By: Antonio Roman on 06-03-2024 Bilirubin [Mass/Vol] 0.34 mg/dL 0.00-1.30 [facility] CBC W/Diff, Automatedon - Absolute Lymph 1.67 X10 3/uL Normal 0.83-4.[address] [facility] Comment on above: Performed By: #### L 500.4050, L100.0100 ####[facility] [address] [place], [address] Absolute Neut 4.3 X10 3/uL Normal 2.0-7.[address] [facility] Comment on above: Performed By: #### L 500.4050, L100.0100 ####[facility] [address] [place], [address] Basophils/100 WBC (Bld) 1.4 % High 0-[address] [facility] Comment on above: Performed By: #### L 500.4050, L100.0100 ####[facility] [address] [place], [address] Eosinophils/100 WBC (Bld) 3.9 % Normal 0-[address] [facility] Comment on above: Performed By: #### L 500.4050, L100.0100 ####[facility] [address] [place], [address] Erythrocyte distribution width (RBC) [Ratio] 13.2 % Normal 11.6-14.[address] [facility] Comment on above: Performed By: #### L 500.4050, L100.0100 ####[facility] [address] [place], [address] Hematocrit (Bld) [Volume fraction] 44.1 % Normal 37-[address] [facility] Comment on above: Performed By: #### L 500.4050, L100.0100 ####[facility] [address] [place], [address] Hemoglobin (Bld) [Mass/Vol] 14.8 g/dL Normal 12.0-15.[address] [facility] Comment on above: Performed By: #### L 500.4050, L100.0100 ####[facility] [address] [place], [address] IG% 1.300 High 0.0-0.[address] [facility] Comment on above: Result Comment: IG% - Immature Granulocytes (promyelocytes, myelocytes andmetamyelocytes) > 1% indicates that a LEFT SHIFT is Present. Performed By: #### L 500.4050, L100.0100 ####[facility] [address] [place], [address] Lymphocytes/100 WBC (Bld) 23.5 % Normal 19-[address] [facility] Comment on above: Performed By: #### L 500.4050, L100.0100 ####[facility] [address] [place], [address] MCH (RBC) [Entitic mass] 28.6 pg Normal 27.0-32.[address] [facility] Comment on above: Performed By: #### L 500.4050, L100.0100 ####[facility] [address] [place], [address] MCHC (RBC) [Mass/Vol] 33.6 g/dL Normal 32-36 [facility] Comment on above: Performed By: #### L 500.4050, L100.0100 ####[facility] [address] [place], [address] MCV (RBC) [Entitic vol] 85.3 fL Normal 81-[address] [facility] Comment on above: Performed By: #### L 500.4050, L100.0100 ####[facility] [address] [place], [address] Monocytes/100 WBC (Bld) 9.8 % Normal 0-[address] [facility] Comment on above: Performed By: #### L 500.4050, L100.0100 ####[facility] [address] [place], [address] Neutrophils/100 WBC (Bld) 60.1 % Normal 47-[address] [facility] Comment on above: Performed By: #### L 500.4050, L100.0100 ####[facility] [address] [place], [address] Nucleated RBC (Bld) [#/Vol] 0 10*3/uL Normal 0-[address] [facility] Comment on above: Performed By: #### L 500.4050, L100.0100 ####[facility] [address] [place], [address] Platelet mean volume (Bld) [Entitic vol] 9.5 fL Normal 6.2-12.[address] [facility] Comment on above: Performed By: #### L 500.4050, L100.0100 ####[facility] [address] [place], [address] Platelets (Bld) [#/Vol] 412 10*3/uL Normal 150-[address] [facility] Comment on above: Performed By: #### L 500.4050, L100.0100 ####[facility] [address] [place], [address] RBC (Bld) [#/Vol] 5.17 10*6/uL Normal 4.2-5.[address] [facility] Comment on above: Performed By: #### L 500.4050, L100.0100 ####[facility] [address] [place], [address] RDW SD 40.3 fl Normal 35.1-43.[address] [facility] Comment on above: Performed By: #### L 500.4050, L100.0100 ####[facility] [address] [place], [address] WBC (Bld) [#/Vol] 7.1 10*3/uL Normal 4.4-11.0 [facility] Comment on above: Performed By: #### L 500.4050, L100.0100 ####[facility] [address] [place], [address] Carbon dioxide, total [Moles /volume] in Central venous bloodOrdered By: Antonio Roman on 06-03-2024 CO2 [Moles/Vol] 28.0 mmol/L 21.0-32.[address] [facility] Chloride assayOrdered By: Ashly ttcolin Abel on 06-03-2024 Chloride [Moles/Vol] 93 mmol/L Low 98-108 [facility] Comprehensive Metabolic Prof ilon 06-03-2024 Albumin [Mass/Vol] 4.1 g/dL Normal 3.5-5.0 [facility] Comment on above: Performed By: #### L 500.4050, L100.0100 ####[facility] [address] [place], [address] Albumin/Globulin [Mass ratio] 1.2 {ratio} Normal 0.9-2.[address] [facility] Comment on above: Performed By: #### L 500.4050, L100.0100 ####[facility] [address] [place], [address] ALK PHOS 132 U/L High 35-[address] [facility] Comment on above: Performed By: #### L 500.4050, L100.0100 ####[facility] [address] [place], [address] ALT [Catalytic activity/Vol] 23 U/L Normal <=[address] [facility] Comment on above: Performed By: #### L 500.4050, L100.0100 ####[facility] [address] [place], [address] AST [Catalytic activity/Vol] 38 U/L High <=[address] [facility] Comment on above: Performed By: #### L 500.4050, L100.0100 ####[facility] [address] [place], [address] Bilirubin [Mass/Vol] 0.34 mg/dL Normal 0.00-1.30 [facility] Comment on above: Performed By: #### L 500.4050, L100.0100 ####[facility] [address] [place], [address] BUN/CRE 8.7 RATIO Low 10-[address] [facility] Comment on above: Performed By: #### L 500.4050, L100.0100 ####[facility] [address] [place], [address] Calcium [Mass/Vol] 9.5 mg/dL Normal 7.6-11.0 [facility] Comment on above: Performed By: #### L 500.4050, L100.0100 ####[facility] [address] [place], [address] Chloride [Moles/Vol] 93 mmol/L Low 98-108 [facility] Comment on above: Performed By: #### L 500.4050, L100.0100 ####[facility] [address] [place], [address] CO2 [Moles/Vol] 28.0 mmol/L Normal 21.0-32.[address] [facility] Comment on above: Performed By: #### L 500.4050, L100.0100 ####[facility] [address] [place], [address] Creatinine [Mass/Vol] 1.30 mg/dL High 0.70-1.20 [facility] Comment on above: Performed By: #### L 500.4050, L100.0100 ####[facility] [address] [place], [address] GAP 12 Normal 5-[address] [facility] Comment on above: Performed By: #### L 500.4050, L100.0100 ####[facility] [address] [place], [address] GFR/1.73 sq M.predicted among non-blacks MDRD (S/P/Bld) [Vol rate/Area] 54 mL/min/{1.73_m2} Low >[address] [facility] Comment on above: Result Comment: mL/m in/1.73m2 CKD-EPI Creatinine Equation (2020) Performed By: #### L 500.4050, L100.0100 ####[facility] [address] [place], [address] Globulin (S) [Mass/Vol] 3.3 g/dL Normal 2.2-4.[address] [facility] Comment on above: Performed By: #### L 500.4050, L100.0100 ####[facility] [address] [place], [address] Glucose [Mass/Vol] 89 mg/dL Normal 70-99 [facility] Comment on above: Performed By: #### L 500.4050, L100.0100 ####[facility] [address] [place], [address] Potassium [Moles/Vol] 3.3 mmol/L Normal 3.3-5.1 [facility] Comment on above: Performed By: #### L 500.4050, L100.0100 ####[facility] [address] [place], [address] Sodium [Moles/Vol] 134 mmol/L Normal 133-145 [facility] Comment on above: Performed By: #### L 500.4050, L100.0100 ####[facility] [address] [place], [address] T PROT 7.4 g/dL Normal 5.9-8.[address] [facility] Comment on above: Performed By: #### L 500.4050, L100.0100 ####[facility] [address] [place], [address] Urea nitrogen [Mass/Vol] 11 mg/dL Normal 4-[address] [facility] Comment on above: Performed By: #### L 500.4050, L100.0100 ####[facility] [address] [place], [address] Endocrinology Visit Reporton 06-03-2024 Endocrinology Visit Report Normal [facility] Eosinophil percentageOrdered By: Antonio Roman on 06-03-2024 Eosinophils/100 WBC (Bld) 3.9 % 0-[address] [facility] Erythrocyte distribution wid th ratioOrdered By: Antonio Roman on 06-03-2024 Erythrocyte distribution width (RBC) [Ratio] 13.2 % 11.6-14.[address] [facility] Erythrocyte distribution wid th standard deviationOrdered By: Antonio Roman on 06-03-2024 Erythrocyte distribution width (RBC) [Entitic vol] 40.3 fL 35.1-43.[address] [facility] Erythrocyte distribution width (RBC) [Ratio] 40.3 fl 35.1-43.[address] [facility] Fat Ql (Stl)Ordered By: Norma Caruso on 06-03-2024 Stool Total Fats Normal . [facility] Comment on above: Normal (<100 Droplet s/HPF)Performed at: [facility] [address] [id number] Director: Juan C Valladares PhD, Phone: [phone] Fecal fat detectionOrdered B y: Ashley Caruso on 06-03-2024 Fat Ql (Stl) Normal . [facility] Comment on above: Normal (<100 Droplet s/HPF)Performed at: [facility] [id number] Director: Juan C Valladares PhD, Phone: [phone] GFR/1.73 sq M.predicted stefano g non-blacks MDRD (S/P/Bld) [Vol rate/Area]Ordered By: Antonio Roman on 06-03-2024 Estimated GFR (MDRD) Non-Af Amer 54 Low >[address] [facility] Comment on above: mL/min/1.73m2 CKD-EP I Creatinine Equation (2020) Glomerular filtration rate ( GFR) estimation/1.73 sq m using serum, plasma, or whole bOrdered By: Antonio Roman on 06-03-2024 GFR/1.73 sq M.predicted among non-blacks MDRD (S/P/Bld) [Vol rate/Area] 54 mL/min/{1.73_m2} Low >[address] [facility] Comment on above: mL/min/1.73m2 CKD-EP I Creatinine Equation (2020) Hematocrit Auto (Bld) [Volum e fraction]Ordered By: Antonio Roman on 06-03-2024 Hematocrit (Bld) [Volume fraction] 44.1 % 37-[address] [facility] Hemoglobin measurementOrdere d By: Antonio Roman on 06-03-2024 Hemoglobin (Bld) [Mass/Vol] 14.8 g/dL 12.0-15.[address] [facility] Immature granulocytes/100 WB C Auto (Bld)Ordered By: Antonio Rmoan on 06-03-2024 Immature granulocytes/100 WBC (Bld) 1.300 % High 0.0-0.[address] [facility] [facility] Comment on above: IG% - Immature Granu locytes (promyelocytes, myelocytes and metamyelocytes) > 1% indicates that a LEFT SHIFT is Present. Laboratory - Chemistry and C hemistry - challengeOrdered By: Antonio Roman on 06-03-2024 AST [Catalytic activity/Vol] 38 U/L High <[address] [facility] Lymphocytes Auto (Unsp spec) [#/Vol]Ordered By: Antonio Roman on 06-03-2024 Lymphocytes (Bld) [#/Vol] 1.67 10*3/uL 0.83-4.[address] [facility] Lymphocytes/100 WBC Auto (Un sp spec)Ordered By: Antonio Roman on 06-03-2024 Lymphocytes/100 WBC (Bld) 23.5 % 19-[address] [facility] MCV (mean corpuscular volume ) determinationOrdered By: Antonio Roman on 06-03-2024 MCV (RBC) [Entitic vol] 85.3 fL 81-[address] [facility] Magnesiumon 06-03-2024 Magnesium [Mass/Vol] 2.0 mg/dL Normal 1.5-2.2 [facility] Comment on above: Performed By: #### L 501.5200, L501.7300 ####[facility] [address] [place], [place], [address] Magnesium (Unsp spec) [Mass/ Vol]Ordered By: Ashley Caruso on 06-03-2024 Magnesium [Mass/Vol] 2.0 mg/dL 1.5-2.2 [facility] Magnesium measurement (mass/ volume)Ordered By: Ashley Caruso on 06-03-2024 Magnesium (Unsp spec) [Mass/Vol] 2.0 mg/dL 1.5-2.[address] [facility] Mean corpuscular hemoglobin (MCH) determinationOrdered By: Antonio Roman on 06-03-2024 MCH (RBC) [Entitic mass] 28.6 pg 27.0-32.[address] [facility] Mean corpuscular hemoglobin concentration (MCHC) determinationOrdered By: Antonio Roman on 06-03-2024 MCHC (RBC) [Mass/Vol] 33.6 g/dL 32-36 [facility] Mean platelet volume determi nationOrdered By: Antonio Roman on 06-03-2024 Platelet mean volume (Bld) [Entitic vol] 9.5 fL 6.2-12.[address] [facility] Monocyte percentageOrdered B y: Antonio Roman on 06-03-2024 Monocytes/100 WBC (Bld) 9.8 % 0-[address] [facility] Neutrophil percentageOrdered By: Antonio Roman on 06-03-2024 Neutrophils/100 WBC (Bld) 60.1 % 47-[address] [facility] No Panel InformationOrdered By: Ashley Caruso on 06-03-2024 Stool Neutral Fats Normal . [facility] Comment on above: Normal (<60 Droplets /HPF) Nucleated red blood cell per centageOrdered By: Antonio Roman on 06-03-2024 Nucleated RBC/100 WBC (Bld) [Ratio] 0 % 0-[address] [facility] Osmolality (U) [Osmolality]O rdered By: Ashley Caruso on 06-03-2024 Urine Osmolality 357 mOsm/KG >[address] [facility] Comment on above: Normal Urine Referen ce Ranges Random: 50 - 1200 mOsm/kg H20 depending on fluid intake Random: >850 mOsm/kg after 12 hour fluid restriction 24 hour: ~300 - 900 mOsm/kg H2O Osmolality urOrdered By: Ivette Caruso on 06-03-2024 Osmolality (U) [Osmolality] 357 mOsm/KG >[address] [facility] Comment on above: Normal Urine Referen ce Ranges Random: 50 - 1200 mOsm/kg H20 depending on fluid intake Random: >850 mOsm/kg after 12 hour fluid restriction 24 hour: ~300 - 900 mOsm/kg H2O Osmolality, Serumon 06-04-19 25 OSMOLALITY,SER 284 mOsm/KG Normal 275-[address] [facility] Comment on above: Performed By: #### L 501.5200, L501.7300 ####[facility] [address] [place], [place], [address](791) Osmolality, Urineon 06-04-19 25 OSMOLALITY,UR 357 mOsm/KG Normal [facility] Comment on above: Result Comment: Norm al Urine Reference Ranges Random: 50 - 1200 mOsm/kg H20 depending on fluid intake Random: >850 mOsm/kg after 12 hour fluid restriction 24 hour: 300 - 900 mOsm/kg H2O Performed By: #### L 501.7400 ####[facility] [address] [facility] [place] [place], [place], [address]([phone]) Osmolality, serumOrdered By: Ashley Caruso on 06-03-2024 Serum Osmolality 284 mOsm/KG 275-[address] [facility] Platelet countOrdered By: Ashly Roman on 06-03-2024 Platelets (Bld) [#/Vol] 412 10*3/uL 150-[address] [facility] Potassium (Unsp spec) [Mass/ Vol]Ordered By: Antonio Roman on 06-03-2024 Potassium [Moles/Vol] 3.3 mmol/L 3.3-5.1 [facility] Potassium measurement (mass/ volume)Ordered By: Antonio Roman on 06-03-2024 Potassium (Unsp spec) [Mass/Vol] 3.3 mmol/L 3.3-5.[address] [facility] RBC Auto (Bld) [#/Vol]Ordere d By: Antonio Roman on 06-03-2024 RBC (Bld) [#/Vol] 5.17 10*6/uL 4.2-5.[address] [facility] Serum creatinine measurement (mass/volume)Ordered By: Antonio Roman on 06-03-2024 Creatinine [Mass/Vol] 1.30 mg/dL High 0.70-1.20 [facility] Serum globulin measurementOr dered By: Antonio Roman on 06-03-2024 Globulin (S) [Mass/Vol] 3.3 g/dL 2.2-4.[address] [facility] Serum glucose measurement (m ass/volume)Ordered By: Antonio Roman on 06-03-2024 Glucose [Mass/Vol] 89 mg/dL 70-99 [facility] Serum or plasma alanine mendieta otransferase (ALT) measurementOrdered By: Antonio Roman on 06-03-2024 ALT [Catalytic activity/Vol] 23 U/L <[address] [facility] Serum or plasma albumin joselyn urement (mass/volume)Ordered By: Antonio Roman on 06-03-2024 Albumin [Mass/Vol] 4.1 g/dL 3.5-5.0 [facility] Serum or plasma albumin/glob ulin mass ratioOrdered By: Antonio Roman on 06-03-2024 Albumin/Globulin [Mass ratio] 1.2 {ratio} 0.9-2.[address] [facility] Serum or plasma alkaline samantha sphatase measurementOrdered By: Antonio Roman on 06-03-2024 ALP [Catalytic activity/Vol] 132 U/L High 35-[address] [facility] Serum or plasma calcium joselyn urement (mass/volume)Ordered By: Antonio Roman on 06-03-2024 Calcium [Mass/Vol] 9.5 mg/dL 7.6-11.0 [facility] Serum or plasma urea nitroge n measurement (mass/volume)Ordered By: Antonio Roman on 06-03-2024 Urea nitrogen [Mass/Vol] 11 mg/dL 4-[address] [facility] Sodium levelOrdered By: Sebas Roman on 06-03-2024 Sodium [Moles/Vol] 134 mmol/L 133-145 [facility] Total proteinOrdered By: Arvin Roman on 06-03-2024 Protein [Mass/Vol] 7.4 g/dL 5.9-8.4 [facility] White blood cell (WBC) count Ordered By: Antonio Roman on 06-03-2024 WBC (Bld) [#/Vol] 7.1 10*3/uL 4.4-11.0 [facility] Internal Medicine Office Vis iton 05-28-2024 Internal Medicine Office Visit Normal [facility] Calprotectin, Stoolon [address] 52 ug/g Normal 0-[address] [facility] Comment on above: Result Comment: Conc entration Interpretation Follow-Up< 5 - 50 ug/g Normal None>50 -120 ug/g Borderline Re-evaluate in 4-6 weeks >120 ug/g Abnormal Repeat as clinically indicatedPerformed at: - [facility] [address] [id number] Director: Bettina Jimenez MD, Phone: [phone] Performed By: #### L 100.0100, L7000.0700, L500.4050 ####[facility] [address] [place], [place], [id number] Culture, Blood (WB)on 2024 CUB Blood cultures x2, f rom two different sites No growth in 5 days. Normal [facility] Comment on above: Performed By: #### M 200.1000 ####[facility] [address] [place], [place], [id number] CUB Blood cultures x2, f rom two different sites No growth in 5 days. Normal [facility] Comment on above: Performed By: #### M 200.1000 ####[facility] [address] [place], [place], [address] CBC W/Diff, Automatedon Absolute Neut Normal 2.0-7.[address] [facility] Comment on above: Result Comment: Canc elled via OM: Order cancelled - Patient discharged Performed By: #### L 100.0100 ####[facility] [address] [place], [address] HCT Normal 37-[address] [facility] Comment on above: Result Comment: Canc elled via OM: Order cancelled - Patient discharged Performed By: #### L 100.0100 ####[facility] [address] [place], [address] HGB Normal 12.0-15.[address] [facility] Comment on above: Result Comment: Canc elled via OM: Order cancelled - Patient discharged Performed By: #### L 100.0100 ####[facility] [address] [place], [address] MCH Normal 27.0-32.[address] [facility] Comment on above: Result Comment: Canc elled via OM: Order cancelled - Patient discharged Performed By: #### L 100.0100 ####[facility] [address] [place], [address] MCHC Normal 32-[address] [facility] Comment on above: Result Comment: Canc elled via OM: Order cancelled - Patient discharged Performed By: #### L 100.0100 ####[facility] [address] [place], [address] MCV Normal 81-[address] [facility] Comment on above: Result Comment: Canc elled via OM: Order cancelled - Patient discharged Performed By: #### L 100.0100 ####[facility] [address] [place], [address] NEUT% Normal 47-[address] [facility] Comment on above: Result Comment: Canc elled via OM: Order cancelled - Patient discharged Performed By: #### L 100.0100 ####[facility] [address] [place], [address] PLT Normal 150-[address] [facility] Comment on above: Result Comment: Canc elled via OM: Order cancelled - Patient discharged Performed By: #### L 100.0100 ####[facility] [address] [place], [address] RBC Normal 4.2-5.[address] [facility] Comment on above: Result Comment: Canc elled via OM: Order cancelled - Patient discharged Performed By: #### L 100.0100 ####[facility] [address] [place], [address] RDW CV Normal 11.6-14.[address] [facility] Comment on above: Result Comment: Canc elled via OM: Order cancelled - Patient discharged Performed By: #### L 100.0100 ####[facility] [address] [place], [address] RDW SD Normal 35.1-43.[address] [facility] Comment on above: Result Comment: Canc elled via OM: Order cancelled - Patient discharged Performed By: #### L 100.0100 ####[facility] [address] [place], [address] WBC Normal 4.4-11.[address] [facility] Comment on above: Result Comment: Canc elled via OM: Order cancelled - Patient discharged Performed By: #### L 100.0100 ####[facility] [address] [place], [address] Absolute lymphocyte countOrd ered By: Ashley Caruso on 05-15-2024 Lymphocytes Auto (Unsp spec) [#/Vol] 2.12 10*3/uL 0.83-4.[address] [facility] Absolute neutrophil countOrd ered By: Ashley Caruso on 05-15-2024 Neutrophils (Bld) [#/Vol] 9.8 10*3/uL High 2.0-7.[address] [facility] Anion gap in Serum or Plasma Ordered By: Ashley Caruso on 05-15-2024 Anion gap [Moles/Vol] 12 mmol/L 5-15 [facility] Automated lymphocyte count a s percentage of total leukocytesOrdered By: Ashley Caruso on 05-15-2024 Lymphocytes/100 WBC Auto (Unsp spec) 15.9 % Low 19-[address] [facility] BUN/creatinine ratioOrdered By: Ashley Caruso on 05-15-2024 Urea nitrogen/Creatinine [Mass ratio] 10.7 mg/mg 10-[address] [facility] Basic Metabolic Profile (BMP )on 05-15-2024 BUN Normal 4-[address] [facility] Comment on above: Result Comment: Canc elled via OM: Order cancelled - Patient discharged Performed By: #### L 100.0100, L500.2500 ####[facility] [address] [place], [address] BUN/CRE Normal 10-[address] [facility] Comment on above: Result Comment: Canc elled via OM: Order cancelled - Patient discharged Performed By: #### L 100.0100, L500.2500 ####[facility] [address] [place], [address] Calcium Normal 7.6-11.[address] [facility] Comment on above: Result Comment: Canc elled via OM: Order cancelled - Patient discharged Performed By: #### L 100.0100, L500.2500 ####[facility] [address] [place], [address] CL Normal 98-[address] [facility] Comment on above: Result Comment: Canc elled via OM: Order cancelled - Patient discharged Performed By: #### L 100.0100, L500.2500 ####[facility] [address] [place], [address] CO2 Normal 21.0-32.[address] [facility] Comment on above: Result Comment: Canc elled via OM: Order cancelled - Patient discharged Performed By: #### L 100.0100, L500.2500 ####[facility] [address] [place], [address] CREAT,SERUM Normal 0.70-1.[address] [facility] Comment on above: Result Comment: Canc elled via OM: Order cancelled - Patient discharged Performed By: #### L 100.0100, L500.2500 ####[facility] [address] [place], [address] eGFR Normal >[address] [facility] Comment on above: Result Comment: Canc elled via OM: Order cancelled - Patient discharged Performed By: #### L 100.0100, L500.2500 ####[facility] [address] [place], [address] GAP Normal 5-[address] [facility] Comment on above: Result Comment: Canc elled via OM: Order cancelled - Patient discharged Performed By: #### L 100.0100, L500.2500 ####[facility] [address] [place], [address] GLU Normal 70-[address] [facility] Comment on above: Result Comment: Canc elled via OM: Order cancelled - Patient discharged Performed By: #### L 100.0100, L500.2500 ####[facility] [address] [place], [address] Potassium Normal 3.3-5.[address] [facility] Comment on above: Result Comment: Canc elled via OM: Order cancelled - Patient discharged Performed By: #### L 100.0100, L500.2500 ####[facility] [address] [place], [address] Basic Metabolic Profile (BMP) Normal 133-[address] [facility] Comment on above: Result Comment: Canc elled via OM: Order cancelled - Patient discharged Performed By: #### L 100.0100, L500.2500 ####[facility] [address] [place], [address] Basophil percentageOrdered B y: Ashley Caruso on 05-15-2024 Basophils/100 WBC (Bld) 0.4 % 0-[address] [facility] Bilirubin, totalOrdered By: Ashley Caruso on 05-15-2024 Bilirubin [Mass/Vol] 0.20 mg/dL 0.00-1.30 [facility] CBC W/Diff, Automatedon Absolute Lymph 2.12 X10 3/uL Normal 0.83-4.[address] [facility] Comment on above: Performed By: #### L 501.6710, L100.0100, L500.4050 ####[facility] [address] [place], [address] Absolute Neut 9.8 X10 3/uL High 2.0-7.[address] [facility] Comment on above: Performed By: #### L 501.6710, L100.0100, L500.4050 ####[facility] [address] [place], [address] Basophils/100 WBC (Bld) 0.4 % Normal 0-[address] [facility] Comment on above: Performed By: #### L 501.6710, L100.0100, L500.4050 ####[facility] [address] [place], [address] Eosinophils/100 WBC (Bld) 0.1 % Normal 0-[address] [facility] Comment on above: Performed By: #### L 501.6710, L100.0100, L500.4050 ####[facility] [address] [place], [address] Erythrocyte distribution width (RBC) [Ratio] 14.4 % Normal 11.6-14.[address] [facility] Comment on above: Performed By: #### L 501.6710, L100.0100, L500.4050 ####[facility] [address] [place], [address] Hematocrit (Bld) [Volume fraction] 36.6 % Low 37-[address] [facility] Comment on above: Performed By: #### L 501.6710, L100.0100, L500.4050 ####[facility] [address] [place], [address] Hemoglobin (Bld) [Mass/Vol] 12.3 g/dL Normal 12.0-15.[address] [facility] Comment on above: Performed By: #### L 501.6710, L100.0100, L500.4050 ####[facility] [address] [place], [address] IG% 2.300 High 0.0-0.[address] [facility] Comment on above: Result Comment: IG% - Immature Granulocytes (promyelocytes, myelocytes andmetamyelocytes) > 1% indicates that a LEFT SHIFT is Present. Performed By: #### L 501.6710, L100.0100, L500.4050 ####[facility] [address] [place], [address] Lymphocytes/100 WBC (Bld) 15.9 % Low 19-[address] [facility] Comment on above: Performed By: #### L 501.6710, L100.0100, L500.4050 ####[facility] [address] [place], [address] MCH (RBC) [Entitic mass] 28.9 pg Normal 27.0-32.[address] [facility] Comment on above: Performed By: #### L 501.6710, L100.0100, L500.4050 ####[facility] [address] [place], [address] MCHC (RBC) [Mass/Vol] 33.6 g/dL Normal 32-36 [facility] Comment on above: Performed By: #### L 501.6710, L100.0100, L500.4050 ####[facility] [address] [place], [address] MCV (RBC) [Entitic vol] 86.1 fL Normal 81-[address] [facility] Comment on above: Performed By: #### L 501.6710, L100.0100, L500.4050 ####[facility] [address] [place], [address] Monocytes/100 WBC (Bld) 8.0 % Normal 0-[address] [facility] Comment on above: Performed By: #### L 501.6710, L100.0100, L500.4050 ####[facility] [address] [place], [address] Neutrophils/100 WBC (Bld) 73.3 % High 47-[address] [facility] Comment on above: Performed By: #### L 501.6710, L100.0100, L500.4050 ####[facility] [address] [place], [address] Nucleated RBC (Bld) [#/Vol] 0 10*3/uL Normal 0-[address] [facility] Comment on above: Performed By: #### L 501.6710, L100.0100, L500.4050 ####[facility] [address] [place], [address] Platelet mean volume (Bld) [Entitic vol] 9.5 fL Normal 6.2-12.[address] [facility] Comment on above: Performed By: #### L 501.6710, L100.0100, L500.4050 ####[facility] [address] [place], [address] Platelets (Bld) [#/Vol] 388 10*3/uL Normal 150-[address] [facility] Comment on above: Performed By: #### L 501.6710, L100.0100, L500.4050 ####[facility] [address] [place], [address] RBC (Bld) [#/Vol] 4.25 10*6/uL Normal 4.2-5.[address] [facility] Comment on above: Performed By: #### L 501.6710, L100.0100, L500.4050 ####[facility] [address] [place], [address] RDW SD 43.8 fl Normal 35.1-43.[address] [facility] Comment on above: Performed By: #### L 501.6710, L100.0100, L500.4050 ####[facility] [address] [place], [address] WBC (Bld) [#/Vol] 13.3 10*3/uL High 4.4-11.[address] [facility] Comment on above: Performed By: #### L 501.6710, L100.0100, L500.4050 ####[facility] [address] [place], [address] Absolute Neut Normal 2.0-7.[address] [facility] Comment on above: Result Comment: LABS ARE ON THE OTHER REQ Performed By: #### L 100.0100, L7000.0700, L500.4050 ####[facility] [address] [place], [address] HCT Normal 37-[address] [facility] Comment on above: Result Comment: LABS ARE ON THE OTHER REQ Performed By: #### L 100.0100, L7000.0700, L500.4050 ####[facility] [address] [place], [address] HGB Normal 12.0-15.[address] [facility] Comment on above: Result Comment: LABS ARE ON THE OTHER REQ Performed By: #### L 100.0100, L7000.0700, L500.4050 ####[facility] [address] [place], [address] MCH Normal 27.0-32.[address] [facility] Comment on above: Result Comment: LABS ARE ON THE OTHER REQ Performed By: #### L 100.0100, L7000.0700, L500.4050 ####[facility] [address] [place], [address] MCHC Normal 32-[address] [facility] Comment on above: Result Comment: LABS ARE ON THE OTHER REQ Performed By: #### L 100.0100, L7000.0700, L500.4050 ####[facility] [address] [place], [address] MCV Normal 81-[address] [facility] Comment on above: Result Comment: LABS ARE ON THE OTHER REQ Performed By: #### L 100.0100, L7000.0700, L500.4050 ####[facility] [address] [place], [address] NEUT% Normal 47-[address] [facility] Comment on above: Result Comment: LABS ARE ON THE OTHER REQ Performed By: #### L 100.0100, L7000.0700, L500.4050 ####[facility] [address] [place], [address] PLT Normal 150-[address] [facility] Comment on above: Result Comment: LABS ARE ON THE OTHER REQ Performed By: #### L 100.0100, L7000.0700, L500.4050 ####[facility] [address] [place], [address] RBC Normal 4.2-5.[address] [facility] Comment on above: Result Comment: LABS ARE ON THE OTHER REQ Performed By: #### L 100.0100, L7000.0700, L500.4050 ####[facility] [address] [place], [address] RDW CV Normal 11.6-14.[address] [facility] Comment on above: Result Comment: LABS ARE ON THE OTHER REQ Performed By: #### L 100.0100, L7000.0700, L500.4050 ####[facility] [address] [place], [address] RDW SD Normal 35.1-43.[address] [facility] Comment on above: Result Comment: LABS ARE ON THE OTHER REQ Performed By: #### L 100.0100, L7000.0700, L500.4050 ####[facility] [address] [place], [address] WBC Normal 4.4-11.[address] [facility] Comment on above: Result Comment: LABS ARE ON THE OTHER REQ Performed By: #### L 100.0100, L7000.0700, L500.4050 ####[facility] [address] [place], [address] Absolute Neut Normal 2.0-7.[address] [facility] Comment on above: Result Comment: Canc elled via OM: Order cancelled - Patient discharged Performed By: #### L 100.0100, L500.2500 ####[facility] [address] [place], [address] HCT Normal 37-[address] [facility] Comment on above: Result Comment: Canc elled via OM: Order cancelled - Patient discharged Performed By: #### L 100.0100, L500.2500 ####[facility] [address] [place], [address] HGB Normal 12.0-15.[address] [facility] Comment on above: Result Comment: Canc elled via OM: Order cancelled - Patient discharged Performed By: #### L 100.0100, L500.2500 ####[facility] [address] [place], [address] MCH Normal 27.0-32.[address] [facility] Comment on above: Result Comment: Canc elled via OM: Order cancelled - Patient discharged Performed By: #### L 100.0100, L500.2500 ####[facility] [address] [place], [address] MCHC Normal 32-[address] [facility] Comment on above: Result Comment: Canc elled via OM: Order cancelled - Patient discharged Performed By: #### L 100.0100, L500.2500 ####[facility] [address] [place], [address] MCV Normal 81-[address] [facility] Comment on above: Result Comment: Canc elled via OM: Order cancelled - Patient discharged Performed By: #### L 100.0100, L500.2500 ####[facility] [address] [place], [address] NEUT% Normal 47-[address] [facility] Comment on above: Result Comment: Canc elled via OM: Order cancelled - Patient discharged Performed By: #### L 100.0100, L500.2500 ####[facility] [address] [place], [address] PLT Normal 150-[address] [facility] Comment on above: Result Comment: Canc elled via OM: Order cancelled - Patient discharged Performed By: #### L 100.0100, L500.2500 ####[facility] [address] [place], [address] RBC Normal 4.2-5.[address] [facility] Comment on above: Result Comment: Canc elled via OM: Order cancelled - Patient discharged Performed By: #### L 100.0100, L500.2500 ####[facility] [address] [place], [address] RDW CV Normal 11.6-14.[address] [facility] Comment on above: Result Comment: Canc elled via OM: Order cancelled - Patient discharged Performed By: #### L 100.0100, L500.2500 ####[facility] [address] [place], [address] RDW SD Normal 35.1-43.[address] [facility] Comment on above: Result Comment: Canc elled via OM: Order cancelled - Patient discharged Performed By: #### L 100.0100, L500.2500 ####[facility] [address] [place], [address] WBC Normal 4.4-11.[address] [facility] Comment on above: Result Comment: Canc elled via OM: Order cancelled - Patient discharged Performed By: #### L 100.0100, L500.2500 ####[facility] [address] [place], [address] CRPon 05-15-2024 C-REACTIVE PROT 5.54 mg/L High 0.0-3.[address] [facility] Comment on above: Performed By: #### L 501.6710, L100.0100, L500.4050 ####[facility] [address] [place], [address] CRP [Mass/Vol]Ordered By: Jonatan Caruso on 05-15-2024 C-Reactive Protein Extended Range 5.54 mg/L High 0.0-3.[address] [facility] Calprotectin stoolOrdered By : Ashley Caruso on 05-15-2024 Calprotectin stool 52 ug/g 0-120 [facility] Comment on above: Concentration Interp retation Follow-Up< 5 - 50 ug/g Normal None>50 -120 ug/g Borderline Re-evaluate in 4-6 weeks >120 ug/g Abnormal Repeat as clinically indicatedPerformed at: - Lab[address] [id number] Director: Bettina Jimenez MD, Phone: [phone] Stool Calprotectin 52 ug/g 0-120 [facility] Comment on above: Concentration Interp retation Follow-Up< 5 - 50 ug/g Normal None>50 -120 ug/g Borderline Re-evaluate in 4-6 weeks >120 ug/g Abnormal Repeat as clinically indicatedPerformed at: BN - [facility] [address] [id number] Director: Bettina Jimenez MD, Phone: [phone] Carbon dioxide, total [Moles /volume] in Central venous bloodOrdered By: Ashley Caruso on 05-15-2024 CO2 [Moles/Vol] 22.7 mmol/L 21.0-32.[address] [facility] Chloride assayOrdered By: Jonatan Caruso on 05-15-2024 Chloride [Moles/Vol] 109 mmol/L High 98-108 [facility] Comprehensive Metabolic Prof ilon 05-15-2024 Albumin [Mass/Vol] 3.6 g/dL Normal 3.5-5.0 [facility] Comment on above: Performed By: #### L 501.6710, L100.0100, L500.4050 ####[facility] [address] [place], [address] Albumin/Globulin [Mass ratio] 1.3 {ratio} Normal 0.9-2.[address] [facility] Comment on above: Performed By: #### L 501.6710, L100.0100, L500.4050 ####[facility] [address] [place], [address] ALK PHOS 96 U/L Normal 35-[address] [facility] Comment on above: Performed By: #### L 501.6710, L100.0100, L500.4050 ####[facility] [address] [place], [address] ALT [Catalytic activity/Vol] 60 U/L High <=[address] [facility] Comment on above: Performed By: #### L 501.6710, L100.0100, L500.4050 ####[facility] [address] [place], [address] AST [Catalytic activity/Vol] 57 U/L High <=[address] [facility] Comment on above: Performed By: #### L 501.6710, L100.0100, L500.4050 ####[facility] [address] [place], [address] Bilirubin [Mass/Vol] 0.20 mg/dL Normal 0.00-1.30 [facility] Comment on above: Performed By: #### L 501.6710, L100.0100, L500.4050 ####[facility] [address] [place], [address] BUN/CRE 10.7 RATIO Normal 10-[address] [facility] Comment on above: Performed By: #### L 501.6710, L100.0100, L500.4050 ####[facility] [address] [place], [address] Calcium [Mass/Vol] 8.8 mg/dL Normal 7.6-11.0 [facility] Comment on above: Performed By: #### L 501.6710, L100.0100, L500.4050 ####[facility] [address] [place], [address] Chloride [Moles/Vol] 109 mmol/L High 98-108 [facility] Comment on above: Performed By: #### L 501.6710, L100.0100, L500.4050 ####[facility] [address] [place], [address] CO2 [Moles/Vol] 22.7 mmol/L Normal 21.0-32.[address] [facility] Comment on above: Performed By: #### L 501.6710, L100.0100, L500.4050 ####[facility] [address] [place], [address] Creatinine [Mass/Vol] 1.18 mg/dL Normal 0.70-1.20 [facility] Comment on above: Performed By: #### L 501.6710, L100.0100, L500.4050 ####[facility] [address] [place], [address] GAP 12 Normal 5-[address] [facility] Comment on above: Performed By: #### L 501.6710, L100.0100, L500.4050 ####[facility] [address] [place], [address] GFR/1.73 sq M.predicted among non-blacks MDRD (S/P/Bld) [Vol rate/Area] 61 mL/min/{1.73_m2} Normal >[address] [facility] Comment on above: Result Comment: mL/m in/1.73m2 CKD-EPI Creatinine Equation (2020) Performed By: #### L 501.6710, L100.0100, L500.4050 ####[facility] [address] [place], [address] Globulin (S) [Mass/Vol] 2.7 g/dL Normal 2.2-4.[address] [facility] Comment on above: Performed By: #### L 501.6710, L100.0100, L500.4050 ####[facility] [address] [place], [address] Glucose [Mass/Vol] 83 mg/dL Normal 70-99 [facility] Comment on above: Performed By: #### L 501.6710, L100.0100, L500.4050 ####[facility] [address] [place], [address] Potassium [Moles/Vol] 3.3 mmol/L Normal 3.3-5.1 [facility] Comment on above: Performed By: #### L 501.6710, L100.0100, L500.4050 ####[facility] [address] [place], [address] Sodium [Moles/Vol] 143 mmol/L Normal 133-145 [facility] Comment on above: Performed By: #### L 501.6710, L100.0100, L500.4050 ####[facility] [address] [place], [address] T PROT 6.3 g/dL Normal 5.9-8.[address] [facility] Comment on above: Performed By: #### L 501.6710, L100.0100, L500.4050 ####[facility] [address] [place], [address] Urea nitrogen [Mass/Vol] 13 mg/dL Normal 4-[address] [facility] Comment on above: Performed By: #### L 501.6710, L100.0100, L500.4050 ####[facility] [address] [place], [address] ALB Normal 3.5-5.[address] [facility] Comment on above: Result Comment: LABS ARE ON THE OTHER REQ Performed By: #### L 100.0100, L7000.0700, L500.4050 ####[facility] [address] [place], [address] ALK PHOS Normal 35-[address] [facility] Comment on above: Result Comment: LABS ARE ON THE OTHER REQ Performed By: #### L 100.0100, L7000.0700, L500.4050 ####[facility] [address] [place], [address] ALT Normal <=[address] [facility] Comment on above: Result Comment: LABS ARE ON THE OTHER REQ Performed By: #### L 100.0100, L7000.0700, L500.4050 ####[facility] [address] [place], [address] AST Normal <=[address] [facility] Comment on above: Result Comment: LABS ARE ON THE OTHER REQ Performed By: #### L 100.0100, L7000.0700, L500.4050 ####[facility] [address] [place], [address] BUN Normal 4-[address] [facility] Comment on above: Result Comment: LABS ARE ON THE OTHER REQ Performed By: #### L 100.0100, L7000.0700, L500.4050 ####[facility] [address] [place], [address] BUN/CRE Normal 10-[address] [facility] Comment on above: Result Comment: LABS ARE ON THE OTHER REQ Performed By: #### L 100.0100, L7000.0700, L500.4050 ####[facility] [address] [place], [address] Calcium Normal 7.6-11.[address] [facility] Comment on above: Result Comment: LABS ARE ON THE OTHER REQ Performed By: #### L 100.0100, L7000.0700, L500.4050 ####[facility] [address] [place], [address] CL Normal 98-[address] [facility] Comment on above: Result Comment: LABS ARE ON THE OTHER REQ Performed By: #### L 100.0100, L7000.0700, L500.4050 ####[facility] [address] [place], [address] CO2 Normal 21.0-32.[address] [facility] Comment on above: Result Comment: LABS ARE ON THE OTHER REQ Performed By: #### L 100.0100, L7000.0700, L500.4050 ####[facility] [address] [place], [address] CREAT,SERUM Normal 0.70-1.[address] [facility] Comment on above: Result Comment: LABS ARE ON THE OTHER REQ Performed By: #### L 100.0100, L7000.0700, L500.4050 ####[facility] [address] [place], [address] eGFR Normal >[address] [facility] Comment on above: Result Comment: LABS ARE ON THE OTHER REQ Performed By: #### L 100.0100, L7000.0700, L500.4050 ####[facility] [address] [place], [address] GAP Normal 5-[address] [facility] Comment on above: Result Comment: LABS ARE ON THE OTHER REQ Performed By: #### L 100.0100, L7000.0700, L500.4050 ####[facility] [address] [place], [address] GLU Normal 70-[address] [facility] Comment on above: Result Comment: LABS ARE ON THE OTHER REQ Performed By: #### L 100.0100, L7000.0700, L500.4050 ####[facility] [address] [place], [address] Potassium Normal 3.3-5.[address] [facility] Comment on above: Result Comment: LABS ARE ON THE OTHER REQ Performed By: #### L 100.0100, L7000.0700, L500.4050 ####[facility] [address] [place], [address] T BILI Normal 0.00-1.[address] [facility] Comment on above: Result Comment: LABS ARE ON THE OTHER REQ Performed By: #### L 100.0100, L7000.0700, L500.4050 ####[facility] [address] [place], [address] T PROT Normal 5.9-8.[address] [facility] Comment on above: Result Comment: LABS ARE ON THE OTHER REQ Performed By: #### L 100.0100, L7000.0700, L500.4050 ####[facility] [address] [place], [address] Comprehensive Metabolic Profil Normal 133-[address] [facility] Comment on above: Result Comment: LABS ARE ON THE OTHER REQ Performed By: #### L 100.0100, L7000.0700, L500.4050 ####[facility] [address] [place], [address] Culture, Throaton 05-15-2024 CUT Normal throat franny isolated. No beta-hemolytic streptococcus isolated. Normal [facility] Comment on above: Performed By: #### M 100.1000 ####[facility] [address] [place], [address] Eosinophil percentageOrdered By: Ashley Caruso on 05-15-2024 Eosinophils/100 WBC (Bld) 0.1 % 0-[address] [facility] Erythrocyte distribution wid th ratioOrdered By: Ashley Caruso on 05-15-2024 Erythrocyte distribution width (RBC) [Ratio] 14.4 % 11.6-14.[address] [facility] Erythrocyte distribution wid th standard deviationOrdered By: Ashley Caruso on 05-15-2024 Erythrocyte distribution width (RBC) [Entitic vol] 43.8 fL 35.1-43.[address] [facility] Erythrocyte distribution width (RBC) [Ratio] 43.8 fl 35.1-43.[address] [facility] GFR/1.73 sq M.predicted stefano g non-blacks MDRD (S/P/Bld) [Vol rate/Area]Ordered By: Ashley Caruso on 05-15-2024 Estimated GFR (MDRD) Non-Af Amer 61 >[address] [facility] Comment on above: mL/min/1.73m2 CKD-EP I Creatinine Equation (2020) Gastroenterology Visit Repor ton 05-15-2024 Gastroenterology Visit Report Normal [facility] Glomerular filtration rate ( GFR) estimation/1.73 sq m using serum, plasma, or whole bOrdered By: Ashley Caruso on 05-15-2024 GFR/1.73 sq M.predicted among non-blacks MDRD (S/P/Bld) [Vol rate/Area] 61 mL/min/{1.73_m2} >[address] [facility] Comment on above: mL/min/1.73m2 CKD-EP I Creatinine Equation (2020) Hematocrit Auto (Bld) [Volum e fraction]Ordered By: Ashley Caruso on 05-15-2024 Hematocrit (Bld) [Volume fraction] 36.6 % Low 37-[address] [facility] Hemoglobin measurementOrdere d By: Ashley Caruso on 05-15-2024 Hemoglobin (Bld) [Mass/Vol] 12.3 g/dL 12.0-15.[address] [facility] Immature granulocytes/100 WB C Auto (Bld)Ordered By: Ashley Caruso on 05-15-2024 Immature granulocytes/100 WBC (Bld) 2.300 % High 0.0-0.[address] [facility] Comment on above: IG% - Immature Granu locytes (promyelocytes, myelocytes and metamyelocytes) > 1% indicates that a LEFT SHIFT is Present. Laboratory - Chemistry and C hemistry - challengeOrdered By: Ashley Caruso on 05-15-2024 AST [Catalytic activity/Vol] 57 U/L High <[address] [facility] Lymphocytes Auto (Unsp spec) [#/Vol]Ordered By: Ashley Caruso on 05-15-2024 Lymphocytes (Bld) [#/Vol] 2.12 10*3/uL 0.83-4.[address] [facility] Lymphocytes/100 WBC Auto (Un sp spec)Ordered By: Ashley Caruso on 05-15-2024 Lymphocytes/100 WBC (Bld) 15.9 % Low 19-[address] [facility] MCV (mean corpuscular volume ) determinationOrdered By: Ashley Caruso on 05-15-2024 MCV (RBC) [Entitic vol] 86.1 fL 81-[address] [facility] Mean corpuscular hemoglobin (MCH) determinationOrdered By: Ashley Caruso on 05-15-2024 MCH (RBC) [Entitic mass] 28.9 pg 27.0-32.[address] [facility] Mean corpuscular hemoglobin concentration (MCHC) determinationOrdered By: Ashley Caruso on 05-15-2024 MCHC (RBC) [Mass/Vol] 33.6 g/dL 32-36 [facility] Mean platelet volume determi nationOrdered By: Ashley Caruso on 05-15-2024 Platelet mean volume (Bld) [Entitic vol] 9.5 fL 6.2-12.[address] [facility] Monocyte percentageOrdered B y: Ashley Caruso on 05-15-2024 Monocytes/100 WBC (Bld) 8.0 % 0-[address] [facility] Neutrophil percentageOrdered By: Ashley Caruso on 05-15-2024 Neutrophils/100 WBC (Bld) 73.3 % High 47-[address] [facility] Nucleated red blood cell per centageOrdered By: Ashley Caruso on 05-15-2024 Nucleated RBC/100 WBC (Bld) [Ratio] 0 % 0-[address] [facility] Platelet countOrdered By: Jonatan Caruso on 05-15-2024 Platelets (Bld) [#/Vol] 388 10*3/uL 150-[address] [facility] Potassium (Unsp spec) [Mass/ Vol]Ordered By: Ashley Caruso on 05-15-2024 Potassium [Moles/Vol] 3.3 mmol/L 3.3-5.1 [facility] Potassium measurement (mass/ volume)Ordered By: Ashley Caruso on 05-15-2024 Potassium (Unsp spec) [Mass/Vol] 3.3 mmol/L 3.3-5.[address] [facility] RBC Auto (Bld) [#/Vol]Ordere d By: Ashley Caruso on 05-15-2024 RBC (Bld) [#/Vol] 4.25 10*6/uL 4.2-5.[address] [facility] Serum creatinine measurement (mass/volume)Ordered By: Ashley Caruso on 05-15-2024 Creatinine [Mass/Vol] 1.18 mg/dL 0.70-1.20 [facility] Serum globulin measurementOr dered By: Ashley Caruso on 05-15-2024 Globulin (S) [Mass/Vol] 2.7 g/dL 2.2-4.[address] [facility] Serum glucose measurement (m ass/volume)Ordered By: Ashley Caruso on 03-06-2025 Glucose [Mass/Vol] 83 mg/dL 70-99 [facility] Serum or plasma C reactive p rotein measurement (mass/volume)Ordered By: Ashley Caruso on 05-15-2024 CRP [Mass/Vol] 5.54 mg/L High 0.0-3.[address] [facility] Serum or plasma alanine mendieta otransferase (ALT) measurementOrdered By: Ashley Caruso on 05-15-2024 ALT [Catalytic activity/Vol] 60 U/L High <[address] [facility] Serum or plasma albumin joselyn urement (mass/volume)Ordered By: Ashley Caruso on 05-15-2024 Albumin [Mass/Vol] 3.6 g/dL 3.5-5.0 [facility] Serum or plasma albumin/glob ulin mass ratioOrdered By: Ashley Caruso on 05-15-2024 Albumin/Globulin [Mass ratio] 1.3 {ratio} 0.9-2.[address] [facility] Serum or plasma alkaline samantha sphatase measurementOrdered By: Ashley Caruso on 05-15-2024 ALP [Catalytic activity/Vol] 96 U/L 35-[address] [facility] Serum or plasma calcium joselyn urement (mass/volume)Ordered By: Ashley Caruso on 05-15-2024 Calcium [Mass/Vol] 8.8 mg/dL 7.6-11.0 [facility] Serum or plasma urea nitroge n measurement (mass/volume)Ordered By: Ashley Caruso on 05-15-2024 Urea nitrogen [Mass/Vol] 13 mg/dL 4-[address] [facility] Sodium levelOrdered By: Norma Caruso on 05-15-2024 Sodium [Moles/Vol] 143 mmol/L 133-145 [facility] Total proteinOrdered By: Ivette Caruso on 05-15-2024 Protein [Mass/Vol] 6.3 g/dL 5.9-8.4 [facility] White blood cell (WBC) count Ordered By: Ashley Caruso on 05-15-2024 WBC (Bld) [#/Vol] 13.3 10*3/uL High 4.4-11.[address] [facility] Absolute lymphocyte countOrd ered By: Yousuf Pleitez on 05-14-2024 Lymphocytes Auto (Unsp spec) [#/Vol] 1.14 10*3/uL 0.83-4.[address] [facility] Absolute neutrophil countOrd ered By: Yousuf Pleitez on 05-14-2024 Neutrophils (Bld) [#/Vol] 16.8 10*3/uL High 2.0-7.[address] [facility] Anion gap in Serum or Plasma Ordered By: Yousuf Pleitez on 05-14-2024 Anion gap [Moles/Vol] 13 mmol/L 5-15 [facility] Automated lymphocyte count a s percentage of total leukocytesOrdered By: Yousuf Pleitez on 05-14-2024 Lymphocytes/100 WBC Auto (Unsp spec) 6.1 % Low 19-[address] [facility] BUN/creatinine ratioOrdered By: Yousuf Pleitez on 05-14-2024 Urea nitrogen/Creatinine [Mass ratio] 9.8 mg/mg Low 10-[address] [facility] Basic Metabolic Profile (BMP )on 05-14-2024 BUN/CRE 9.8 RATIO Low 10-[address] [facility] Comment on above: Performed By: #### L 100.0100, L500.2500 ####[facility] [address] [place], [address] Calcium [Mass/Vol] 8.2 mg/dL Normal 7.6-11.0 [facility] Comment on above: Performed By: #### L 100.0100, L500.2500 ####[facility] [address] [place], [address] Chloride [Moles/Vol] 109 mmol/L High 98-108 [facility] Comment on above: Performed By: #### L 100.0100, L500.2500 ####[facility] [address] [place], [address] CO2 [Moles/Vol] 16.8 mmol/L Low 21.0-32.[address] [facility] Comment on above: Performed By: #### L 100.0100, L500.2500 ####[facility] [address] [place], [address] Creatinine [Mass/Vol] 1.08 mg/dL Normal 0.70-1.20 [facility] Comment on above: Performed By: #### L 100.0100, L500.2500 ####[facility] [address] [place], [address] ECRCL 40.42 ml/min Low 50-[address] [facility] Comment on above: Performed By: #### L 100.0100, L500.2500 ####[facility] [address] [place], [address] GAP 13 Normal 5-[address] [facility] Comment on above: Performed By: #### L 100.0100, L500.2500 ####[facility] [address] [place], [address] GFR/1.73 sq M.predicted among non-blacks MDRD (S/P/Bld) [Vol rate/Area] 68 mL/min/{1.73_m2} Normal >[address] [facility] Comment on above: Result Comment: mL/m in/1.73m2 CKD-EPI Creatinine Equation (2020) Performed By: #### L 100.0100, L500.2500 ####[facility] [address] [place], [address] Glucose [Mass/Vol] 124 mg/dL High 70-99 [facility] Comment on above: Performed By: #### L 100.0100, L500.2500 ####[facility] [address] [place], [address] Potassium [Moles/Vol] 3.3 mmol/L Normal 3.3-5.1 [facility] Comment on above: Performed By: #### L 100.0100, L500.2500 ####[facility] [address] [place], [address] Sodium [Moles/Vol] 138 mmol/L Normal 133-145 [facility] Comment on above: Performed By: #### L 100.0100, L500.2500 ####[facility] [address] [place], [address] Urea nitrogen [Mass/Vol] 11 mg/dL Normal 4-[address] [facility] Comment on above: Performed By: #### L 100.0100, L500.2500 ####[facility] [address] [place], [address] Basophil percentageOrdered B y: Yousufgiacomo Pleitez on 05-14-2024 Basophils/100 WBC (Bld) 0.2 % 0-[address] [facility] CBC W/Diff, Automatedon Absolute Lymph 1.14 X10 3/uL Normal 0.83-4.[address] [facility] Comment on above: Performed By: #### L 100.0100, L500.2500 ####[facility] [address] [place], [address] Absolute Neut 16.8 X10 3/uL High 2.0-7.[address] [facility] Comment on above: Performed By: #### L 100.0100, L500.2500 ####[facility] [address] [place], [address] Basophils/100 WBC (Bld) 0.2 % Normal 0-[address] [facility] Comment on above: Performed By: #### L 100.0100, L500.2500 ####[facility] [address] [place], [address] Eosinophils/100 WBC (Bld) 0.0 % Normal 0-[address] [facility] Comment on above: Performed By: #### L 100.0100, L500.2500 ####[facility] [address] [place], [address] Erythrocyte distribution width (RBC) [Ratio] 13.6 % Normal 11.6-14.[address] [facility] Comment on above: Performed By: #### L 100.0100, L500.2500 ####[facility] [address] [place], [address] Hematocrit (Bld) [Volume fraction] 33.7 % Low 37-[address] [facility] Comment on above: Performed By: #### L 100.0100, L500.2500 ####[facility] [address] [place], [address] Hemoglobin (Bld) [Mass/Vol] 11.5 g/dL Low 12.0-15.[address] [facility] Comment on above: Performed By: #### L 100.0100, L500.2500 ####[facility] [address] [place], [address] IG% 1.800 High 0.0-0.[address] [facility] Comment on above: Result Comment: IG% - Immature Granulocytes (promyelocytes, myelocytes andmetamyelocytes) > 1% indicates that a LEFT SHIFT is Present. Performed By: #### L 100.0100, L500.2500 ####[facility] [address] [place], [address] Lymphocytes/100 WBC (Bld) 6.1 % Low 19-[address] [facility] Comment on above: Performed By: #### L 100.0100, L500.2500 ####[facility] [address] [place], [address] MCH (RBC) [Entitic mass] 28.8 pg Normal 27.0-32.[address] [facility] Comment on above: Performed By: #### L 100.0100, L500.2500 ####[facility] [address] [place], [address] MCHC (RBC) [Mass/Vol] 34.1 g/dL Normal 32-36 [facility] Comment on above: Performed By: #### L 100.0100, L500.2500 ####[facility] [address] [place], [address] MCV (RBC) [Entitic vol] 84.3 fL Normal 81-[address] [facility] Comment on above: Performed By: #### L 100.0100, L500.2500 ####[facility] [address] [place], [address] Monocytes/100 WBC (Bld) 2.7 % Normal 0-[address] [facility] Comment on above: Performed By: #### L 100.0100, L500.2500 ####[facility] [address] [place], [address] Neutrophils/100 WBC (Bld) 89.2 % High 47-[address] [facility] Comment on above: Performed By: #### L 100.0100, L500.2500 ####[facility] [address] [place], [address] Nucleated RBC (Bld) [#/Vol] 0 10*3/uL Normal 0-[address] [facility] Comment on above: Performed By: #### L 100.0100, L500.2500 ####[facility] [address] [place], [address] Platelet mean volume (Bld) [Entitic vol] 9.6 fL Normal 6.2-12.[address] [facility] Comment on above: Performed By: #### L 100.0100, L500.2500 ####[facility] [address] [place], [address] Platelets (Bld) [#/Vol] 365 10*3/uL Normal 150-[address] [facility] Comment on above: Performed By: #### L 100.0100, L500.2500 ####[facility] [address] [place], [address] RBC (Bld) [#/Vol] 4.00 10*6/uL Low 4.2-5.[address] [facility] Comment on above: Performed By: #### L 100.0100, L500.2500 ####[facility] [address] [place], [address] RDW SD 41.2 fl Normal 35.1-43.[address] [facility] Comment on above: Performed By: #### L 100.0100, L500.2500 ####[facility] [address] [place], [address] WBC (Bld) [#/Vol] 18.8 10*3/uL High 4.4-11.[address] [facility] Comment on above: Performed By: #### L 100.0100, L500.2500 ####[facility] [address] [place], [address] Carbon dioxide, total [Moles /volume] in Central venous bloodOrdered By: Yousuf Pleitez on 05-14-2024 CO2 [Moles/Vol] 16.8 mmol/L Low 21.0-32.[address] [facility] Chloride assayOrdered By: Ibeth Pleitez on 05-14-2024 Chloride [Moles/Vol] 109 mmol/L High 98-108 [facility] Discharge Instructionon 03-0 Discharge Instruction Normal [facility] Eosinophil percentageOrdered By: Yousuf Pleitez on 05-14-2024 Eosinophils/100 WBC (Bld) 0.0 % 0-[address] [facility] Erythrocyte distribution wid th ratioOrdered By: Yousuf Pleitez on 05-14-2024 Erythrocyte distribution width (RBC) [Ratio] 13.6 % 11.6-14.[address] [facility] Erythrocyte distribution wid th standard deviationOrdered By: Yousuf Pleitez on 05-14-2024 Erythrocyte distribution width (RBC) [Entitic vol] 41.2 fL 35.1-43.[address] [facility] Erythrocyte distribution width (RBC) [Ratio] 41.2 fl 35.1-43.[address] [facility] Estimation of creatinine sammie aranceOrdered By: Yousuf Pleitez on 05-14-2024 Estimated Creatinine Clearance Calc 40.42 ml/min Low 50-[address] [facility] GFR/1.73 sq M.predicted stefano g non-blacks MDRD (S/P/Bld) [Vol rate/Area]Ordered By: Yousuf Pleitez on 05-14-2024 Estimated GFR (MDRD) Non-Af Amer 68 >[address] [facility] Comment on above: mL/min/1.73m2 CKD-EP I Creatinine Equation (2020) Glomerular filtration rate ( GFR) estimation/1.73 sq m using serum, plasma, or whole bOrdered By: Yousuf Pleitez on 05-14-2024 GFR/1.73 sq M.predicted among non-blacks MDRD (S/P/Bld) [Vol rate/Area] 68 mL/min/{1.73_m2} >[address] [facility] Comment on above: mL/min/1.73m2 CKD-EP I Creatinine Equation (2020) Hematocrit Auto (Bld) [Volum e fraction]Ordered By: Yousuf Pleitez on 05-14-2024 Hematocrit (Bld) [Volume fraction] 33.7 % Low 37-[address] [facility] Hemoglobin measurementOrdere d By: Yousuf Pleitez on 05-14-2024 Hemoglobin (Bld) [Mass/Vol] 11.5 g/dL Low 12.0-15.[address] [facility] Immature granulocytes/100 WB C Auto (Bld)Ordered By: Yousuf Pleitez on 05-14-2024 Immature granulocytes/100 WBC (Bld) 1.800 % High 0.0-0.[address] [facility] Comment on above: IG% - Immature Granu locytes (promyelocytes, myelocytes and metamyelocytes) > 1% indicates that a LEFT SHIFT is Present. Lymphocytes Auto (Unsp spec) [#/Vol]Ordered By: Yousuf Pleitez on 05-14-2024 Lymphocytes (Bld) [#/Vol] 1.14 10*3/uL 0.83-4.[address] [facility] Lymphocytes/100 WBC Auto (Un sp spec)Ordered By: Yousuf Pleitez on 05-14-2024 Lymphocytes/100 WBC (Bld) 6.1 % Low 19-[address] [facility] MCV (mean corpuscular volume ) determinationOrdered By: Yousuf Pleitez on 05-14-2024 MCV (RBC) [Entitic vol] 84.3 fL 81-[address] [facility] Mean corpuscular hemoglobin (MCH) determinationOrdered By: Yousuf Pleitez on 05-14-2024 MCH (RBC) [Entitic mass] 28.8 pg 27.0-32.[address] [facility] Mean corpuscular hemoglobin concentration (MCHC) determinationOrdered By: Yousuf Pleitez on 05-14-2024 MCHC (RBC) [Mass/Vol] 34.1 g/dL 32-36 [facility] Mean platelet volume determi nationOrdered By: Yousuf Pleitez on 05-14-2024 Platelet mean volume (Bld) [Entitic vol] 9.6 fL 6.2-12.[address] [facility] Monocyte percentageOrdered B y: Yousuf Pleitez on 05-14-2024 Monocytes/100 WBC (Bld) 2.7 % 0-[address] [facility] Neutrophil percentageOrdered By: Yousuf Pleitez on 05-14-2024 Neutrophils/100 WBC (Bld) 89.2 % High 47-[address] [facility] Nucleated red blood cell per centageOrdered By: Yousuf Pleitez on 05-14-2024 Nucleated RBC/100 WBC (Bld) [Ratio] 0 % 0-[address] [facility] Platelet countOrdered By: Ibeth Pleitez on 05-14-2024 Platelets (Bld) [#/Vol] 365 10*3/uL 150-[address] [facility] Potassium (Unsp spec) [Mass/ Vol]Ordered By: Yousuf Pleitez on 05-14-2024 Potassium [Moles/Vol] 3.3 mmol/L 3.3-5.1 [facility] Potassium measurement (mass/ volume)Ordered By: Yousuf Pleitez on 05-14-2024 Potassium (Unsp spec) [Mass/Vol] 3.3 mmol/L 3.3-5.[address] [facility] RBC Auto (Bld) [#/Vol]Ordere d By: Yousuf Pleitez on 05-14-2024 RBC (Bld) [#/Vol] 4.00 10*6/uL Low 4.2-5.[address] [facility] Serum creatinine measurement (mass/volume)Ordered By: Yousuf Pleitez on 05-14-2024 Creatinine [Mass/Vol] 1.08 mg/dL 0.70-1.20 [facility] Serum glucose measurement (m ass/volume)Ordered By: Yousuf Pleitez on 05-14-2024 Glucose [Mass/Vol] 124 mg/dL High 70-99 [facility] Serum or plasma calcium joselyn urement (mass/volume)Ordered By: Yousuf Pleitez on 05-14-2024 Calcium [Mass/Vol] 8.2 mg/dL 7.6-11.0 [facility] Serum or plasma urea nitroge n measurement (mass/volume)Ordered By: Yousuf Pleitez on 05-14-2024 Urea nitrogen [Mass/Vol] 11 mg/dL 4-[address] [facility] Sodium levelOrdered By: Zeinab Pleitez on 05-14-2024 Sodium [Moles/Vol] 138 mmol/L 133-145 [facility] White blood cell (WBC) count Ordered By: Yousuf Pleitez on 05-14-2024 WBC (Bld) [#/Vol] 18.8 10*3/uL High 4.4-11.[address] [facility] Base excess Calc (BldV) [Mol es/Vol]Ordered By: Rudi Chiu on 05-13-2024 Venous Blood Base Excess -13 mmol/L Low -1.0-3.[address] [facility] Basic Metabolic Profile (BMP )on 05-13-2024 BUN/CRE 13.7 RATIO Normal 10-[address] [facility] Comment on above: Performed By: #### L 500.2500, L501.9520, L100.0100 ####[facility] [address] [place], [address] Calcium [Mass/Vol] 7.9 mg/dL Normal 7.6-11.0 [facility] Comment on above: Performed By: #### L 500.2500, L501.9520, L100.0100 ####[facility] [address] [place], [address] Chloride [Moles/Vol] 112 mmol/L High 98-108 [facility] Comment on above: Performed By: #### L 500.2500, L501.9520, L100.0100 ####[facility] [address] [place], [address] CO2 [Moles/Vol] 11.3 mmol/L Low 21.0-32.[address] [facility] Comment on above: Performed By: #### L 500.2500, L501.9520, L100.0100 ####[facility] [address] [place], [address] Creatinine [Mass/Vol] 1.12 mg/dL Normal 0.70-1.20 [facility] Comment on above: Performed By: #### L 500.2500, L501.9520, L100.0100 ####[facility] [address] [place], [address] ECRCL 38.98 ml/min Low 50-[address] [facility] Comment on above: Performed By: #### L 500.2500, L501.9520, L100.0100 ####[facility] [address] [place], [address] GAP 12 Normal 5-[address] [facility] Comment on above: Performed By: #### L 500.2500, L501.9520, L100.0100 ####[facility] [address] [place], [address] GFR/1.73 sq M.predicted among non-blacks MDRD (S/P/Bld) [Vol rate/Area] 65 mL/min/{1.73_m2} Normal >[address] [facility] Comment on above: Result Comment: mL/m in/1.73m2 CKD-EPI Creatinine Equation (2020) Performed By: #### L 500.2500, L501.9520, L100.0100 ####[facility] [address] [place], [address] Glucose [Mass/Vol] 105 mg/dL High 70-99 [facility] Comment on above: Performed By: #### L 500.2500, L501.9520, L100.0100 ####[facility] [address] [place], [address] Potassium [Moles/Vol] 3.9 mmol/L Normal 3.3-5.1 [facility] Comment on above: Performed By: #### L 500.2500, L501.9520, L100.0100 ####[facility] [address] [place], [address] Sodium [Moles/Vol] 135 mmol/L Normal 133-145 [facility] Comment on above: Performed By: #### L 500.2500, L501.9520, L100.0100 ####[facility] [address] [place], [address] Urea nitrogen [Mass/Vol] 15 mg/dL Normal 4-[address] [facility] Comment on above: Performed By: #### L 500.2500, L501.9520, L100.0100 ####[facility] [address] [place], [address] Bilirubin directOrdered By: Rudi Chiu on 05-13-2024 Bilirubin.direct [Mass/Vol] 0.17 mg/dL 0.00-0.[address] [facility] Bilirubin, totalOrdered By: Rudi Chiu on 05-13-2024 Bilirubin [Mass/Vol] 0.35 mg/dL 0.00-1.30 [facility] Blood cultureOrdered By: Kerry Almaraz on 05-13-2024 Bacteria identified Cx Nom (Bld) No growth in [address] [facility] CBC W/Diff, Automatedon Absolute Lymph 0.79 X10 3/uL Low 0.83-4.[address] [facility] Comment on above: Performed By: #### L 500.2500, L501.9520, L100.0100 ####[facility] [address] [place], [address] Absolute Neut 15.5 X10 3/uL High 2.0-7.[address] [facility] Comment on above: Performed By: #### L 500.2500, L501.9520, L100.0100 ####[facility] [address] [place], [address] Basophils/100 WBC (Bld) 0.5 % Normal 0-[address] [facility] Comment on above: Performed By: #### L 500.2500, L501.9520, L100.0100 ####[facility] [address] [place], [address] Eosinophils/100 WBC (Bld) 0.1 % Normal 0-[address] [facility] Comment on above: Performed By: #### L 500.2500, L501.9520, L100.0100 ####[facility] [address] [place], [address] Erythrocyte distribution width (RBC) [Ratio] 13.4 % Normal 11.6-14.[address] [facility] Comment on above: Performed By: #### L 500.2500, L501.9520, L100.0100 ####[facility] [address] [place], [address] Hematocrit (Bld) [Volume fraction] 39.6 % Normal 37-[address] [facility] Comment on above: Performed By: #### L 500.2500, L501.9520, L100.0100 ####[facility] [address] [place], [address] Hemoglobin (Bld) [Mass/Vol] 13.4 g/dL Normal 12.0-15.[address] [facility] Comment on above: Performed By: #### L 500.2500, L501.9520, L100.0100 ####[facility] [address] [place], [address] IG% 1.900 High 0.0-0.[address] [facility] Comment on above: Result Comment: IG% - Immature Granulocytes (promyelocytes, myelocytes andmetamyelocytes) > 1% indicates that a LEFT SHIFT is Present. Performed By: #### L 500.2500, L501.9520, L100.0100 ####[facility] [address] [place], [address] Lymphocytes/100 WBC (Bld) 4.7 % Low 19-[address] [facility] Comment on above: Performed By: #### L 500.2500, L501.9520, L100.0100 ####[facility] [address] [place], [address] MCH (RBC) [Entitic mass] 28.6 pg Normal 27.0-32.[address] [facility] Comment on above: Performed By: #### L 500.2500, L501.9520, L100.0100 ####[facility] [address] [place], [address] MCHC (RBC) [Mass/Vol] 33.8 g/dL Normal 32-36 [facility] Comment on above: Performed By: #### L 500.2500, L501.9520, L100.0100 ####[facility] [address] [place], [address] MCV (RBC) [Entitic vol] 84.4 fL Normal 81-[address] [facility] Comment on above: Performed By: #### L 500.2500, L501.9520, L100.0100 ####[facility] [address] [place], [address] Monocytes/100 WBC (Bld) 0.8 % Normal 0-[address] [facility] Comment on above: Performed By: #### L 500.2500, L501.9520, L100.0100 ####[facility] [address] [place], [address] Neutrophils/100 WBC (Bld) 92.0 % High 47-[address] [facility] Comment on above: Performed By: #### L 500.2500, L501.9520, L100.0100 ####[facility] [address] [place], [address] Nucleated RBC (Bld) [#/Vol] 0 10*3/uL Normal 0-[address] [facility] Comment on above: Performed By: #### L 500.2500, L501.9520, L100.0100 ####[facility] [address] [place], [address] Platelet mean volume (Bld) [Entitic vol] 9.5 fL Normal 6.2-12.[address] [facility] Comment on above: Performed By: #### L 500.2500, L501.9520, L100.0100 ####[facility] [address] [place], [address] Platelets (Bld) [#/Vol] 361 10*3/uL Normal 150-[address] [facility] Comment on above: Performed By: #### L 500.2500, L501.9520, L100.0100 ####[facility] [address] [place], [address] RBC (Bld) [#/Vol] 4.69 10*6/uL Normal 4.2-5.[address] [facility] Comment on above: Performed By: #### L 500.2500, L501.9520, L100.0100 ####[facility] [address] [place], [address] RDW SD 41.1 fl Normal 35.1-43.[address] [facility] Comment on above: Performed By: #### L 500.2500, L501.9520, L100.0100 ####[facility] [address] [place], [address] WBC (Bld) [#/Vol] 16.8 10*3/uL High 4.4-11.[address] [facility] Comment on above: Performed By: #### L 500.2500, L501.9520, L100.0100 ####[facility] [address] [place], [address] Absolute Lymph 1.70 X10 3/uL Normal 0.83-4.[address] [facility] Comment on above: Performed By: #### L 500.3400, L100.0100 ####[facility] [address] [place], [address] Absolute Neut 16.2 X10 3/uL High 2.0-7.[address] [facility] Comment on above: Performed By: #### L 500.3400, L100.0100 ####[facility] [address] [place], [address] Basophils/100 WBC (Bld) 0.7 % Normal 0-[address] [facility] Comment on above: Performed By: #### L 500.3400, L100.0100 ####[facility] [address] [place], [address] Eosinophils/100 WBC (Bld) 1.0 % Normal 0-[address] [facility] Comment on above: Performed By: #### L 500.3400, L100.0100 ####[facility] [address] [place], [address] Erythrocyte distribution width (RBC) [Ratio] 13.4 % Normal 11.6-14.[address] [facility] Comment on above: Performed By: #### L 500.3400, L100.0100 ####[facility] [address] [place], [address] Hematocrit (Bld) [Volume fraction] 40.6 % Normal 37-[address] [facility] Comment on above: Performed By: #### L 500.3400, L100.0100 ####[facility] [address] [place], [address] Hemoglobin (Bld) [Mass/Vol] 14.1 g/dL Normal 12.0-15.[address] [facility] Comment on above: Performed By: #### L 500.3400, L100.0100 ####[facility] [address] [place], [address] IG% 1.800 High 0.0-0.[address] [facility] Comment on above: Result Comment: IG% - Immature Granulocytes (promyelocytes, myelocytes andmetamyelocytes) > 1% indicates that a LEFT SHIFT is Present. Performed By: #### L 500.3400, L100.0100 ####[facility] [address] [place], [address] Lymphocytes/100 WBC (Bld) 8.6 % Low 19-[address] [facility] Comment on above: Performed By: #### L 500.3400, L100.0100 ####[facility] [address] [place], [address] MCH (RBC) [Entitic mass] 29.0 pg Normal 27.0-32.[address] [facility] Comment on above: Performed By: #### L 500.3400, L100.0100 ####[facility] [address] [place], [address] MCHC (RBC) [Mass/Vol] 34.7 g/dL Normal 32-36 [facility] Comment on above: Performed By: #### L 500.3400, L100.0100 ####[facility] [address] [place], [address] MCV (RBC) [Entitic vol] 83.5 fL Normal 81-[address] [facility] Comment on above: Performed By: #### L 500.3400, L100.0100 ####[facility] [address] [place], [address] Monocytes/100 WBC (Bld) 5.6 % Normal 0-[address] [facility] Comment on above: Performed By: #### L 500.3400, L100.0100 ####[facility] [address] [place], [address] Neutrophils/100 WBC (Bld) 82.3 % High 47-[address] [facility] Comment on above: Performed By: #### L 500.3400, L100.0100 ####[facility] [address] [place], [address] Nucleated RBC (Bld) [#/Vol] 0 10*3/uL Normal 0-[address] [facility] Comment on above: Performed By: #### L 500.3400, L100.0100 ####[facility] [address] [place], [address] Platelet mean volume (Bld) [Entitic vol] 8.9 fL Normal 6.2-12.[address] [facility] Comment on above: Performed By: #### L 500.3400, L100.0100 ####[facility] [address] [place], [address] Platelets (Bld) [#/Vol] 411 10*3/uL Normal 150-[address] [facility] Comment on above: Performed By: #### L 500.3400, L100.0100 ####[facility] [address] [place], [address] RBC (Bld) [#/Vol] 4.86 10*6/uL Normal 4.2-5.[address] [facility] Comment on above: Performed By: #### L 500.3400, L100.0100 ####[facility] [address] [place], [address] RDW SD 40.0 fl Normal 35.1-43.[address] [facility] Comment on above: Performed By: #### L 500.3400, L100.0100 ####[facility] [address] [place], [address] WBC (Bld) [#/Vol] 19.7 10*3/uL High 4.4-11.[address] [facility] Comment on above: Performed By: #### L 500.3400, L100.0100 ####[facility] [address] [place], [address] CO2 (BldV) [Moles/Vol]Ordere d By: Rudi Chiu on 05-13-2024 CO2 [Moles/Vol] 16 mmol/L Low 23-[address] [facility] CO2 (BldV) [Partial pressure ]Ordered By: Rudi Chiu on 05-13-2024 Bed Mix Venous Bld PCO2 at Pat Temp 37.8 mmHg Low 41-[address] [facility] Chest PA and Lateralon 05-13 Chest PA and Lateral Normal [facility] Emergency Department Summary on 05-13-2024 Emergency Department Summary Normal [facility] Influenza virus A and B and SARS-CoV-2 (COVID-19) and Respiratory syncytial virus RNAOrdered By: Damaris Almaraz on 05-13-2024 SARS-CoV-2 (COVID-19) RNA ISAK+probe Ql (Unsp spec) [facility] Laboratory - Chemistry and C hemistry - challengeOrdered By: Rudi Chiu on 05-13-2024 AST [Catalytic activity/Vol] 26 U/L <[address] [facility] Liver Profileon 05-13-2024 Albumin [Mass/Vol] 3.7 g/dL Normal 3.5-5.0 [facility] Comment on above: Performed By: #### L 500.3400, L100.0100 ####[facility] [address] [place], [address] ALK PHOS 139 U/L High 35-[address] [facility] Comment on above: Performed By: #### L 500.3400, L100.0100 ####[facility] [address] [place], [address] ALT [Catalytic activity/Vol] 20 U/L Normal <=[address] [facility] Comment on above: Performed By: #### L 500.3400, L100.0100 ####[facility] [address] [place], [address] AST [Catalytic activity/Vol] 26 U/L Normal <=[address] [facility] Comment on above: Performed By: #### L 500.3400, L100.0100 ####[facility] [address] [place], [address] Bilirubin [Mass/Vol] 0.35 mg/dL Normal 0.00-1.30 [facility] Comment on above: Performed By: #### L 500.3400, L100.0100 ####[facility] [address] [place], [address] Bilirubin.direct [Mass/Vol] 0.17 mg/dL Normal 0.00-0.[address] [facility] Comment on above: Performed By: #### L 500.3400, L100.0100 ####[facility] [address] [place], [address] Globulin (S) [Mass/Vol] 3.4 g/dL Normal 2.2-4.[address] [facility] Comment on above: Performed By: #### L 500.3400, L100.0100 ####[facility] [address] [place], [address] T PROT 7.1 g/dL Normal 5.9-8.[address] [facility] Comment on above: Performed By: #### L 500.3400, L100.0100 ####[facility] [address] [place], [address] M100.678on 05-13-2024 M100.678 Pending SARS-CoV-2 (COVID 19) Negative INFLUENZA A Negative INFLUENZA B Negative RSV PCR Negative Normal [facility] Comment on above: Performed By: #### M 100.678 ####[facility] [address] [place], [place], [address] Magnesiumon 05-13-2024 Magnesium [Mass/Vol] 1.9 mg/dL Normal 1.5-2.2 [facility] Comment on above: Order Comment: Comme nts: add to earlier labs Performed By: #### L 501.5200 ####[facility] [address] [place], [place], [address] Magnesium (Unsp spec) [Mass/ Vol]Ordered By: Juliana lOeary on 05-13-2024 Magnesium [Mass/Vol] 1.9 mg/dL 1.5-2.2 [facility] Magnesium measurement (mass/ volume)Ordered By: Juliana Oleary on 05-13-2024 Magnesium (Unsp spec) [Mass/Vol] 1.9 mg/dL 1.5-2.[address] [facility] No Panel InformationOrdered By: Rudi Chiu on 05-13-2024 Bld Gas Crit Called To/Read Back By Yes [facility] Blood Gas Notified Time 00:46:[address] [facility] Blood Gas Notified Whom Dr Chiu [facility] Blood Gas Sample Site Not entered [facility] Blood Gas Specimen Type ANABELA [facility] Oxygen Delivery Device Room Air [facility] Oxygen (BldV) [Partial press ure]Ordered By: Rudi Chiu on 05-13-2024 Venous Blood Partial Pressure O2 35 mmHg 25-[address] [facility] Serum globulin measurementOr dered By: Rudi Chiu on 05-13-2024 Globulin (S) [Mass/Vol] 3.4 g/dL 2.2-4.[address] [facility] Serum or plasma alanine mendieta otransferase (ALT) measurementOrdered By: Rudi Chiu on 05-13-2024 ALT [Catalytic activity/Vol] 20 U/L <[address] [facility] Serum or plasma albumin joselyn urement (mass/volume)Ordered By: Rudi Chiu on 05-13-2024 Albumin [Mass/Vol] 3.7 g/dL 3.5-5.0 [facility] Serum or plasma alkaline samantha sphatase measurementOrdered By: Rudi Chiu on 05-13-2024 ALP [Catalytic activity/Vol] 139 U/L High 35-[address] [facility] TSH DL <= 0.005 mIU/L QnOrde red By: Josiah Wilkins on 05-13-2024 Thyroid Stimulating Hormone (TSH) 1.150 uIU/mL 0.300-4.[address] [facility] TSH Qn 1.150 uIU/mL 0.300-4.[address] [facility] Throat specimen bacteria juan antonio ntification by cultureOrdered By: Damaris Almaraz on 05-13-2024 Bacteria identified Cx Nom (Throat) streptococcus isolated. [facility] Thyroid Stim Hormone (TSH)on 05-13-2024 TSH 1.150 uIU/mL Normal 0.300-4.[address] [facility] Comment on above: Performed By: #### L 500.2500, L501.9520, L100.0100 ####[facility] [address] [place], [address] Total proteinOrdered By: Rudi Chiu on 05-13-2024 Protein [Mass/Vol] 7.1 g/dL 5.9-8.4 [facility] Venous Blood Gason Blood Gas Type ANABELA Normal [facility] Comment on above: Performed By: #### L 9000.0810 ####[facility] [address] [place], [address] CO2 [Moles/Vol] 16 mmol/L Low 23-[address] [facility] Comment on above: Performed By: #### L 9000.0810 ####[facility] [address] [place], [address] HCO3 (Bld) [Moles/Vol] 15 mmol/L Low 22-26 [facility] Comment on above: Performed By: #### L 9000.0810 ####[facility] [address] [place], [address] O2 Delivery Dev Room Air [facility] Comment on above: Performed By: #### L 9000.0810 ####[facility] [address] [place], [address] Read Back By Yes [facility] Comment on above: Performed By: #### L 9000.0810 ####[facility] [address] [place], [address] Chiu [facility] Comment on above: Performed By: #### L 9000.0810 ####[facility] [address] [place], [address] SITE Not entered [facility] Comment on above: Performed By: #### L 9000.0810 ####[facility] [address] [place], [address] Time Given 00:46:26 [facility] Comment on above: Performed By: #### L 9000.0810 ####[facility] [address] [place], [address] VBG BE -13 mmol/L Low -1.0-3.[address] [facility] Comment on above: Performed By: #### L 9000.0810 ####[facility] [address] [place], [address] VBG pCO2 37.8 mmHg Low 41-[address] [facility] Comment on above: Performed By: #### L 9000.0810 ####[facility] [address] [place], [address] VBG pH 7.20 Low 7.32-7.[address] [facility] Comment on above: Performed By: #### L 8999.0810 ####[facility] [address] [place], [address] VBG PO2 35 mmHg Normal 25-[address] [facility] Comment on above: Performed By: #### L 8999.0810 ####[facility] [address] [place], [address] VBG SO2 55 Normal 50-[address] [facility] Comment on above: Performed By: #### L 8999.0810 ####[facility] [address] [place], [address] Venous blood base excess svetlana surementOrdered By: Rudi Aram on 05-13-2024 Base excess Calc (BldV) [Moles/Vol] -13 mmol/L Low -1.0-3.[address] [facility] Venous blood bicarbonate svetlana surementOrdered By: Rudi Chiu on 05-13-2024 HCO3 (Bld) [Moles/Vol] 15 mmol/L Low 22-26 [facility] Venous blood oxygen saturati on measurementOrdered By: Rudi Chiu on 05-13-2024 Oxygen saturation in Blood 55 % 50-[address] [facility] Venous blood pH measurementO rdered By: Rudi Aram on 05-13-2024 pH (BldV) 7.20 [pH] Low 7.32-7.[address] [facility] Venous blood partial pressur e of carbon dioxide measurementOrdered By: Rudi Aram on 05-13-2024 CO2 (BldV) [Partial pressure] 37.8 mm[Hg] Low 41-[address] [facility] Venous blood partial pressur e of oxygen measurementOrdered By: Rudi Chiu on 05-13-2024 Oxygen (BldV) [Partial pressure] 35 mm[Hg] 25-[address] [facility] pH (BldV)Ordered By: Rudi gama on 05-13-2024 Venous Blood pH 7.20 Low 7.32-7.[address] [facility] Basic Metabolic Profile (BMP )on 05-12-2024 BUN/CRE 12.8 RATIO Normal 10-[address] [facility] Comment on above: Performed By: #### L 500.2500 ####[facility] [address] [place], [address] Calcium [Mass/Vol] 9.7 mg/dL Normal 7.6-11.0 [facility] Comment on above: Performed By: #### L 500.2500 ####[facility] [address] [place], [address] Chloride [Moles/Vol] 100 mmol/L Normal 98-108 [facility] Comment on above: Performed By: #### L 500.2500 ####[facility] [address] [place], [address] CO2 [Moles/Vol] 14.3 mmol/L Low 21.0-32.[address] [facility] Comment on above: Performed By: #### L 500.2500 ####[facility] [address] [place], [address] Creatinine [Mass/Vol] 1.54 mg/dL High 0.70-1.20 [facility] Comment on above: Performed By: #### L 500.2500 ####[facility] [address] [place], [address] ECRCL 27.43 ml/min Low 50-[address] [facility] Comment on above: Performed By: #### L 500.2500 ####[facility] [address] [place], [address] GAP 15 Normal 5-[address] [facility] Comment on above: Performed By: #### L 500.2500 ####[facility] [address] [place], [address] GFR/1.73 sq M.predicted among non-blacks MDRD (S/P/Bld) [Vol rate/Area] 44 mL/min/{1.73_m2} Low >[address] [facility] Comment on above: Result Comment: mL/m in/1.73m2 CKD-EPI Creatinine Equation (2020) Performed By: #### L 500.2500 ####[facility] [address] [place], [address] Glucose [Mass/Vol] 113 mg/dL High 70-99 [facility] Comment on above: Performed By: #### L 500.2500 ####[facility] [address] [place], [address] Potassium [Moles/Vol] 4.2 mmol/L Normal 3.3-5.1 [facility] Comment on above: Performed By: #### L 500.2500 ####[facility] [address] [place], [address] Sodium [Moles/Vol] 130 mmol/L Low 133-145 [facility] Comment on above: Performed By: #### L 500.2500 ####[facility] [address] [place], [address] Urea nitrogen [Mass/Vol] 20 mg/dL High 4-[address] [facility] Comment on above: Performed By: #### L 500.2500 ####[facility] [address] [place], [address] Emergency Department Summary on 05-12-2024 Emergency Department Summary Normal [facility] M100.677on 05-12-2024 M100.677 Negative Normal [facility] Comment on above: Performed By: #### M 100.677 ####[facility] [address] [place], [address] S. pyogenes rRNA Probe Ql (T hroat)Ordered By: Rudi Chiu on 05-12-2024 Streptococcus pyogenes (PCR) [facility] Streptococcus pyogenes rRNA detection in throat by DNA probeOrdered By: Rudi Chiu on 05-12-2024 S. pyogenes rRNA Probe Ql (Throat) [facility] Cardiology Visit Reporton Cardiology Visit Report Normal [facility] Echo Completeon 04-10-2024 Echo Complete Normal [facility] Internal Medicine Office Vis iton 03-26-2024 Internal Medicine Office Visit Normal [facility] CORTISOL SERUMon 03-24-2024 CORTISOL 11.70 ug/dL Normal 3.44-22.[address] [facility] Comment on above: Order Comment: 8 AM draw Result Comment: Adul t (AM) 5.27 - 22.45 ug/dL Adult (PM) 3.44 - 16.76 ug/dL Performed By: #### L 509.6000 ####[facility] [address] [place], [place], [address] Cortisol [Mass/Vol]Ordered B y: Antonio Roman on 03-24-2024 Cortisol 11.70 ug/dL 3.44-22.[address] [facility] Comment on above: Adult (AM) 5.27 - 22 .45 ug/dL Adult (PM) 3.44 - 16.76 ug/dL Internal Medicine Office Vis iton 03-21-2024 Internal Medicine Office Visit Normal [facility] D-Dimer Quantitative (DVT/PE )on 03-08-2024 D-DIMER QUANT < 0.27 Low 0.27-0.[address] [facility] Comment on above: Result Comment: NORM AL D-Dimer level (<0.50) indicates no DVT or PE. Performed By: #### L 300.8000 ####[facility] [address] [place], [place], [address] Emergency Department Summary on 03-08-2024 Emergency Department Summary Normal [facility] L501.4020on 03-08-2024 TROPONIN-I HS < 3 Low 3.0-54.[address] [facility] Comment on above: Order Comment: 2 Result Comment: Plea se Note: New Test Units and Gender Specific Reference Ranges. For more information see Policy Stat Procedure [place] High Sensitivity Troponin (TNIH) and attachments. Performed By: #### L 501.4020 ####[facility] [address] [place], [place], [address] Troponin IOrdered By: Ildefonso Duran on 03-08-2024 Troponin I High Sensitivity < 3 pg/mL Low 3.0-54.[address] [facility] Comment on above: Please Note: New Sair[place] t Units and Gender Specific Reference Ranges. For more information see Policy Stat Procedure [place] High Sensitivity Troponin (TNIH) and attachments. 12 Lead EKGon 03-07-2024 12 Lead EKG Normal [facility] Absolute neutrophil countOrd ered By: Ildefonso Duran on 03-07-2024 Neutrophils (Bld) [#/Vol] 16.6 10*3/uL High 2.0-7.[address] [facility] Basic Metabolic Profile (BMP )on 03-07-2024 BUN/CRE 14.2 RATIO Normal 10-[address] [facility] Comment on above: Order Comment: 1Y Performed By: #### L 100.0100, L501.5425, L500.2500 ####[facility] [address] [place], [address] CA,Total 9.4 mg/dL Normal 8.5-10.[address] [facility] Comment on above: Order Comment: 1Y Performed By: #### L 100.0100, L501.5425, L500.2500 ####[facility] [address] [place], [address] Chloride [Moles/Vol] 98 mmol/L Normal 98-107 [facility] Comment on above: Order Comment: 1Y Performed By: #### L 100.0100, L501.5425, L500.2500 ####[facility] [address] [place], [address] CO2 [Moles/Vol] 28.0 mmol/L Normal 21.0-32.[address] [facility] Comment on above: Order Comment: 1Y Performed By: #### L 100.0100, L501.5425, L500.2500 ####[facility] [address] [place], [address] Creatinine [Mass/Vol] 1.55 mg/dL High 0.55-1.02 [facility] Comment on above: Order Comment: 1Y Result Comment: The validity of the calculated GFR GFRAA in patients over70 years has not been determined. Clinical correlation isessential. Performed By: #### L 100.0100, L501.5425, L500.2500 ####[facility] [address] [place], [address] ECRCL 28.22 ml/min Normal [facility] Comment on above: Order Comment: 1Y Performed By: #### L 100.0100, L501.5425, L500.2500 ####[facility] [address] [place], [address] EST GFR - AA 48 mL/min Low >[address] [facility] Comment on above: Order Comment: 1Y Result Comment: Afri can Trinidadian GFR Calc Performed By: #### L 100.0100, L501.5425, L500.2500 ####[facility] [address] [place], [address] GAP 6 Normal 5-[address] [facility] Comment on above: Order Comment: 1Y Performed By: #### L 100.0100, L501.5425, L500.2500 ####[facility] [address] [place], [address] GFR/1.73 sq M.predicted among non-blacks MDRD (S/P/Bld) [Vol rate/Area] 40 mL/min/{1.73_m2} Low >[address] [facility] Comment on above: Order Comment: 1Y Result Comment: Non- GFR Calc Performed By: #### L 100.0100, L501.5425, L500.2500 ####[facility] [address] [place], [address] Glucose [Mass/Vol] 109 mg/dL High 74-106 [facility] Comment on above: Order Comment: 1Y Result Comment: Fast ing Glucose result from 100 to 125 mg/dLsuggests IMPAIRED HOMEOSTASIS per A.D.A. criteria. Performed By: #### L 100.0100, L501.5425, L500.2500 ####[facility] [address] [place], [address] Potassium [Moles/Vol] 3.9 mmol/L Normal 3.5-5.1 [facility] Comment on above: Order Comment: 1Y Result Comment: Mode rate Hemolysis, Result may be falsely increased. Performed By: #### L 100.0100, L501.5425, L500.2500 ####[facility] [address] [place], [address] Sodium [Moles/Vol] 132 mmol/L Low 136-145 [facility] Comment on above: Order Comment: 1Y Performed By: #### L 100.0100, L501.5425, L500.2500 ####[facility] [address] [place], [address] Urea nitrogen [Mass/Vol] 22 mg/dL High 7-[address] [facility] Comment on above: Order Comment: 1Y Performed By: #### L 100.0100, L501.5425, L500.2500 ####[facility] [address] [place], [address] Basophil percentageOrdered B y: Ildefonso Duran on 03-07-2024 Basophils/100 WBC (Bld) 0.8 % 0-[address] [facility] Blood urea nitrogen (BUN)/cr eatinine ratioOrdered By: Ildefonso Duran on 03-07-2024 Urea nitrogen/Creatinine [Mass ratio] 14.2 mg/mg 10-[address] [facility] CBC W/Diff, Automatedon -2 Absolute Lymph 0.98 X10 3/uL Normal 0.83-4.[address] [facility] Comment on above: Performed By: #### L 100.0100, L501.5425, L500.2500 ####[facility] [address] [place], [address] Absolute Neut 16.6 X10 3/uL High 2.0-7.[address] [facility] Comment on above: Performed By: #### L 100.0100, L501.5425, L500.2500 ####[facility] [address] [place], [address] Basophils/100 WBC (Bld) 0.8 % Normal 0-[address] [facility] Comment on above: Performed By: #### L 100.0100, L501.5425, L500.2500 ####[facility] [address] [place], [address] Eosinophils/100 WBC (Bld) 0.5 % Normal 0-[address] [facility] Comment on above: Performed By: #### L 100.0100, L501.5425, L500.2500 ####[facility] [address] [place], [address] Erythrocyte distribution width (RBC) [Ratio] 13.1 % Normal 11.6-14.[address] [facility] Comment on above: Performed By: #### L 100.0100, L501.5425, L500.2500 ####[facility] [address] [place], [address] Hematocrit (Bld) [Volume fraction] 48.0 % High 37-[address] [facility] Comment on above: Performed By: #### L 100.0100, L501.5425, L500.2500 ####[facility] [address] [place], [address] Hemoglobin (Bld) [Mass/Vol] 16.1 g/dL High 12.0-15.[address] [facility] Comment on above: Performed By: #### L 100.0100, L501.5425, L500.2500 ####[facility] [address] [place], [address] IG% 2.100 High 0.0-0.[address] [facility] Comment on above: Result Comment: IG% - Immature Granulocytes (promyelocytes, myelocytes andmetamyelocytes) > 1% indicates that a LEFT SHIFT is Present. Performed By: #### L 100.0100, L501.5425, L500.2500 ####[facility] [address] [place], [address] Lymphocytes/100 WBC (Bld) 5.1 % Low 19-[address] [facility] Comment on above: Performed By: #### L 100.0100, L501.5425, L500.2500 ####[facility] [address] [place], [address] MCH (RBC) [Entitic mass] 28.6 pg Normal 27.0-32.[address] [facility] Comment on above: Performed By: #### L 100.0100, L501.5425, L500.2500 ####[facility] [address] [place], [address] MCHC (RBC) [Mass/Vol] 33.5 g/dL Normal 32-36 [facility] Comment on above: Performed By: #### L 100.0100, L501.5425, L500.2500 ####[facility] [address] [place], [address] MCV (RBC) [Entitic vol] 85.3 fL Normal 81-[address] [facility] Comment on above: Performed By: #### L 100.0100, L501.5425, L500.2500 ####[facility] [address] [place], [address] Monocytes/100 WBC (Bld) 5.9 % Normal 0-[address] [facility] Comment on above: Performed By: #### L 100.0100, L501.5425, L500.2500 ####[facility] [address] [place], [address] Neutrophils/100 WBC (Bld) 85.6 % High 47-[address] [facility] Comment on above: Performed By: #### L 100.0100, L501.5425, L500.2500 ####[facility] [address] [place], [address] Nucleated RBC (Bld) [#/Vol] 0 10*3/uL Normal 0-[address] [facility] Comment on above: Performed By: #### L 100.0100, L501.5425, L500.2500 ####[facility] [address] [place], [address] Platelet mean volume (Bld) [Entitic vol] 9.1 fL Normal 6.2-12.[address] [facility] Comment on above: Performed By: #### L 100.0100, L501.5425, L500.2500 ####[facility] [address] [place], [address] Platelets (Bld) [#/Vol] 408 10*3/uL Normal 150-[address] [facility] Comment on above: Performed By: #### L 100.0100, L501.5425, L500.2500 ####[facility] [address] [place], [address] RBC (Bld) [#/Vol] 5.63 10*6/uL High 4.2-5.[address] [facility] Comment on above: Performed By: #### L 100.0100, L501.5425, L500.2500 ####[facility] [address] [place], [address] RDW SD 40.3 fl Normal 35.1-43.[address] [facility] Comment on above: Performed By: #### L 100.0100, L501.5425, L500.2500 ####[facility] [address] [place], [address] WBC (Bld) [#/Vol] 19.4 10*3/uL High 4.4-11.[address] [facility] Comment on above: Performed By: #### L 100.0100, L501.5425, L500.2500 ####[facility] [address] [place], [place], [address] Calprotectin, Stoolon [address] 98 ug/g Normal 0-[address] [facility] Comment on above: Result Comment: Conc entration Interpretation Follow-Up< 5 - 50 ug/g Normal None>50 -120 ug/g Borderline Re-evaluate in 4-6 weeks >120 ug/g Abnormal Repeat as clinically indicatedPerformed at: [facility] [address] [id number] Director: Bettina Jimenez MD, Phone: [phone] Performed By: #### L 7000.0700, M100.0605 ####[facility] [address] [place], [place], [id number] Carbon dioxide measurementOr dered By: Ildefonso Duran on 03-07-2024 CO2 [Moles/Vol] 28.0 mmol/L 21.0-32.[address] [facility] Chest 1 View (Portable)on Chest 1 View (Portable) Normal [facility] Chloride measurementOrdered By: Ildefonso Duran on 03-07-2024 Chloride [Moles/Vol] 98 mmol/L 98-107 [facility] D-dimer measurement for deep venous thrombosisOrdered By: Guerrero Fuller on 03-07-2024 D-Dimer Quantitative (PE/DVT) < 0.27 FEU/ug/m Low 0.27-0.[address] [facility] Comment on above: NORMAL D-Dimer level (<0.50) indicates no DVT or PE. Eosinophil percentageOrdered By: Ildefonso Duran on 03-07-2024 Eosinophils/100 WBC (Bld) 0.5 % 0-[address] [facility] Erythrocyte distribution wid th ratioOrdered By: Ildefonso Duran on 03-07-2024 Erythrocyte distribution width (RBC) [Ratio] 13.1 % 11.6-14.[address] [facility] Erythrocyte distribution wid th standard deviationOrdered By: Ildefonso Duran on 03-07-2024 Erythrocyte distribution width (RBC) [Entitic vol] 40.3 fL 35.1-43.[address] [facility] Estimated glomerular filtrat ion rate (GFR) AmericanOrdered By: Ildefonso Duran on 03-07-2024 Estimated GFR (MDRD) Amer 48 mL/min Low >[address] [facility] Comment on above: GFR Calc Estimation of creatinine sammie aranceOrdered By: Ildefonso Duran on 03-07-2024 Estimated Creatinine Clearance Calc 28.22 ml/min [facility] Glomerular filtration rate ( GFR) estimationOrdered By: Ildefonso Duran on 03-07-2024 Estimated GFR (MDRD) Non-Af Amer 40 mL/min Low >[address] [facility] Comment on above: Non- GFR Calc Glucose measurementOrdered B y: Ildefonso Duran on 03-07-2024 Glucose [Mass/Vol] 109 mg/dL High 74-106 [facility] Comment on above: Fasting Glucose resu lt from 100 to 125 mg/dL suggests IMPAIRED HOMEOSTASIS per A.D.A. criteria. Hematocrit Auto (Bld) [Volum e fraction]Ordered By: Ildefonso Duran on 03-07-2024 Hematocrit (Bld) [Volume fraction] 48.0 % High 37-[address] [facility] Hemoglobin measurementOrdere d By: Ildefonso Duran on 03-07-2024 Hemoglobin (Bld) [Mass/Vol] 16.1 g/dL High 12.0-15.[address] [facility] Immature granulocytes/100 WB C Auto (Bld)Ordered By: Ildefonso Duran on 03-07-2024 Immature granulocytes/100 WBC (Bld) 2.100 % High 0.0-0.[address] [facility] Comment on above: IG% - Immature Granu locytes (promyelocytes, myelocytes and metamyelocytes) > 1% indicates that a LEFT SHIFT is Present. L501.5425on 03-07-2024 TROPONIN-I HS < 3 Low 3.0-54.[address] [facility] Comment on above: Order Comment: 1Y Result Comment: Beatriz person Note: New Test Units and Gender Specific Reference Ranges. For more information see Policy Stat Procedure [place] High Sensitivity Troponin (TNIH) and attachments. Performed By: #### L 100.0100, L501.5425, L500.2500 ####[facility] [address] [place], [place], [address] Lymphocytes Auto (Unsp spec) [#/Vol]Ordered By: Ildefonso Duran on 03-07-2024 Lymphocytes (Bld) [#/Vol] 0.98 10*3/uL 0.83-4.[address] [facility] Lymphocytes/100 WBC Auto (Un sp spec)Ordered By: Ildefonso Duran on 03-07-2024 Lymphocytes/100 WBC (Bld) 5.1 % Low 19-[address] [facility] MCV (mean corpuscular volume ) determinationOrdered By: Ildefonso Duran on 03-07-2024 MCV (RBC) [Entitic vol] 85.3 fL 81-[address] [facility] Magnesiumon 03-07-2024 Magnesium [Mass/Vol] 2.2 mg/dL Normal 1.6-2.6 [facility] Comment on above: Result Comment: Mode rate Hemolysis, Result may be falsely increased. Performed By: #### L 501.5200, L501.9520 ####[facility] [address] [place], [place], [address] Magnesium measurementOrdered By: Guerrero Fuller on 03-07-2024 Magnesium [Mass/Vol] 2.2 mg/dL 1.6-2.6 [facility] Comment on above: Moderate Hemolysis, Result may be falsely increased. Mean corpuscular hemoglobin (MCH) determinationOrdered By: Ildefonso Duran on 03-07-2024 MCH (RBC) [Entitic mass] 28.6 pg 27.0-32.[address] [facility] Mean corpuscular hemoglobin concentration (MCHC) determinationOrdered By: Ildefonso Duran on 03-07-2024 MCHC (RBC) [Mass/Vol] 33.5 g/dL 32-36 [facility] Mean platelet volume determi nationOrdered By: Ildefonso Duran on 03-07-2024 Platelet mean volume (Bld) [Entitic vol] 9.1 fL 6.2-12.[address] [facility] Monocyte percentageOrdered B y: Ildefonso Duran on 03-07-2024 Monocytes/100 WBC (Bld) 5.9 % 0-[address] [facility] Neutrophil percentageOrdered By: Ildefonso Duran on 03-07-2024 Neutrophils/100 WBC (Bld) 85.6 % High 47-[address] [facility] Nucleated red blood cell per centageOrdered By: Ildefonso Duran on 03-07-2024 Nucleated RBC/100 WBC (Bld) [Ratio] 0 % 0-[address] [facility] Platelet countOrdered By: Melly Duran on 03-07-2024 Platelets (Bld) [#/Vol] 408 10*3/uL 150-[address] [facility] Potassium measurementOrdered By: Ildefonso Duran on 03-07-2024 Potassium [Moles/Vol] 3.9 mmol/L 3.5-5.1 [facility] Comment on above: Moderate Hemolysis, Result may be falsely increased. RBC Auto (Bld) [#/Vol]Ordere d By: Ildefonso Duran on 03-07-2024 RBC (Bld) [#/Vol] 5.63 10*6/uL High 4.2-5.[address] [facility] Serum anion gap measurementO rdered By: Ildefonso Duran on 03-07-2024 Anion gap [Moles/Vol] 6 mmol/L 5-15 [facility] Serum or plasma calcium joselyn urement (mass/volume)Ordered By: Ildefonso Duran on 03-07-2024 Calcium [Mass/Vol] 9.4 mg/dL 8.5-10.1 [facility] Serum or plasma creatinine m easurement (mass/volume)Ordered By: Ildefonso Duran on 03-07-2024 Creatinine [Mass/Vol] 1.55 mg/dL High 0.55-1.02 [facility] Comment on above: The validity of the calculated GFR & GFRAA in patients over 70 years has not been determined. Clinical correlation is essential. Serum or plasma urea nitroge n measurement (mass/volume)Ordered By: Ildefonso Duran on 03-07-2024 Urea nitrogen [Mass/Vol] 22 mg/dL High 7-[address] [facility] Sodium levelOrdered By: Med Duran on 03-07-2024 Sodium [Moles/Vol] 132 mmol/L Low 136-145 [facility] TSH QnOrdered By: Jonathan on 03-07-2024 Thyroid Stimulating Hormone (TSH) 2.120 uIU/mL 0.358-3.[address] [facility] Thyroid Stim Hormone (TSH)on 03-07-2024 TSH 2.120 uIU/mL Normal 0.358-3.[address] [facility] Comment on above: Performed By: #### L 501.5200, L501.9520 ####[facility] [address] [place], [address] White blood cell (WBC) count Ordered By: Ildefonso Duran on 03-07-2024 WBC (Bld) [#/Vol] 19.4 10*3/uL High 4.4-11.[address] [facility] ROBERTA Comprehensive Panelon ROBERTA TABLE Comment Normal . [facility] Comment on above: Result Comment: Auto antibody Disease Association -------- Condition Frequency ---------Antinuclear Antibody, SLE, mixed connectiveDirect (ROBERTA-D) tissue diseases ---------dsDNA SLE 40 - 60% ---------Chromatin Drug induced SLE 90% SLE 48 - 97% ---------SSA (Ro) SLE 25 - 35% Sjogren's Syndrome 40 - 70% Lupus 100% ---------SSB (La) SLE 10% Sjogren's Syndrome 30% ---------Sm (anti-Villagomez) SLE 15 - 30% ---------FOREST ECONOMICS PROFESSOR Mixed Connective Tissue Disease 95%(U1 nRNP, SLE 30 - 50%anti-ribonucleoprotein) Polymyositis and/or Dermatomyositis 20% ---------Scl-70 (antiDNA Scleroderma (diffuse) 20 - 35%topoisomerase) Crest 13% ---------Carmen-1 Polymyositis and/or Dermatomyositis 20 - 40% ---------Centromere B Scleroderma - Crest variant 80% Performed By: #### L 500.4050, L501.5101, L506.1000, L3300.1200, L3100.5440, L803.2200, L3100.7870, L800.1280, L503.0105 ####[facility] [address] [place], [address] ANCAon 03-06-2024 Atypical pANCA <1:20 Normal Neg:<1:[address] [facility] Comment on above: Result Comment: The atypical pANCA pattern has been observed in asignificant percentage of patients with ulcerative colitis,primary sclerosing cholangitis and autoimmune hepatitis. Performed By: #### L 500.4050, L501.5101, L506.1000, L3300.1200, L3100.5440, L803.2200, L3100.7870, L800.1280, L503.0105 ####[facility] [address] [place], [address] Cytoplasmic Ab <1:20 Normal Neg:<1:[address] [facility] Comment on above: Performed By: #### L 500.4050, L501.5101, L506.1000, L3300.1200, L3100.5440, L803.2200, L3100.7870, L800.1280, L503.0105 ####[facility] [address] [place], [address] Perinuclear Ab. <1:20 Normal Neg:<1:[address] [facility] Comment on above: Result Comment: The presence of positive fluorescence exhibiting P-ANCA orC-ANCA patterns alone is not specific for the diagnosis ofWegener's Granulomatosis (WG) or microscopic polyangiitis.Decisions about treatment should not be based solely onANCA IFA results. The International ANCA Group Consensusrecommends follow up testing of positive sera with both MO-3 and MPO-ANCA enzyme immunoassays. As many as 5% serumsamples are positive only by EIA. Ref. AM J Clin Pqxcbu6908;111:507-513. Performed By: #### L 500.4050, L501.5101, L506.1000, L3300.1200, L3100.5440, L803.2200, L3100.7870, L800.1280, L503.0105 ####[facility] [address] [place], [place], [id number] Anti-Mitochondrial ABon - ANTIMITOCHON AB <20.0 Normal 0.0-20.[address] [facility] Comment on above: Result Comment: Nega tive 0.0 - 20.0 Equivocal 20.1 - 24.9 Positive >24.9Mitochondrial (M2) Antibodies are found in 90-96% ofpatients with primary biliary cirrhosis. Performed By: #### L 500.4050, L501.5101, L506.1000, L3300.1200, L3100.5440, L803.2200, L3100.7870, L800.1280, L503.0105 ####[facility] [address] [place], [place], [id number] Anti-Smooth Muscle ABSon ANTISMOOTH MUSC 5 Units Normal 0-[address] [facility] Comment on above: Result Comment: Nega tive 0 - 19 Weak positive 20 - 30 Moderate to strong positive >30 Actin Antibodies are found in 52-85% of patients with autoimmune hepatitis or chronic active hepatitis and in 22% of patients with primary biliary cirrhosis. Performed By: #### L 500.4050, L501.5101, L506.1000, L3300.1200, L3100.5440, L803.2200, L3100.7870, L800.1280, L503.0105 ####[facility] [address] [place], [place], [id number] CNOVon 03-06-2024 CNOV Office Visit (UCWSTR ) PHILIPPE RG ([id number]) 1985 F Date Time Provider Department 03/06/24 6:30 PM FIDENCIO MCPHERSON [facility] During your visit today, we recorded the [...] understand agrees plan of care. Fidencio Mcpherson APRN.DETAIL SUPERVISOR Allergies As of Date: 03/06/2024 Noted Allergy Reaction ADHESIVE TAPE (ROSINS) 04/28/2010 2 - Rash [facility] Adhesive- (most adhesive tape [...] Date Reviewed: 03/06/2024 Reviewed by: Fidencio Mcpherson APRN.DETAIL SUPERVISOR - Fully Assessed Primary Visit Diagnosis:Procedure not [...] [E87.0] 06/06/2013 06/07/2013 DVT (deep venous thrombosis) ([facility]) [I82.409] 07/16/2013 04/24/2016 Tachycardia [R00.0] 06/30/2014 04/24/2016 [...] Status:Closed by FIDENCIO MCPHERSON on 03/06/24 Normal [facility] CRP, High Sensitivity [id number] on 03-06-2024 CRP, HIGH SENS 4.76 mg/L High 0.00-3.[address] [facility] Comment on above: Result Comment: Rela tive Risk for Future Cardiovascular Event Low <1.00 Average 1.00 - 3.00 High >3.00Performed at: [facility] [address] [place], [place] [id number] Director: Juan C Valladares PhD, Phone: [phone] Performed By: #### L 500.4050, L501.5101, L506.1000, L3300.1200, L3100.5440, L803.2200, L3100.7870, L800.1280, L503.0105 ####[facility] [address] [place], [address] L501.5101on 03-06-2024 GGTP 26 IU/L Normal 0-[address] [facility] Comment on above: Result Comment: Perf ormed at: [facility] [place], [place] [id number] Director: Juan C Valladares PhD, Phone: [phone] Performed By: #### L 500.4050, L501.5101, L506.1000, L3300.1200, L3100.5440, L803.2200, L3100.7870, L800.1280, L503.0105 ####[facility] [address] [place], [address] CBC W/Diff, Automatedon 02-10 PATH REV Reviewed Normal [facility] Comment on above: Result Comment: Neut rophilic leukocytosis with left shiftPolycythemiaThrombocytosis.Clinical correlation necessary.Herminio Klely M.D. 03/04/24Pathologist comment added AMENDED REPORT 03/04/24 1029 PATH REV previously reported as: Reviewed Performed By: #### L 500.2500, L100.0100, L501.4020 ####[facility] [address] [place], [place], [address] 46-AR-Gohhyjf DOrdered By: Jaime Caruso on 03-03-2024 Vitamin D 25-Hydroxy 30.0 ng/mL [facility] Comment on above: Vitamin D 25(OH) Sta tus Range Deficiency <20 ng/mL (50nmol/L) Insufficiency 20 - 30 ng/mL (50 - 75 nmol/L) Sufficiency 30 - 100 ng/mL (75 - 250 nmol/L) Toxicity >100 ng/mL (>250 nmol/L) Actin IgG QnOrdered By: Norma Caruso on 03-03-2024 Anti-Smooth Muscle Antibody 5 Units 0-[address] [facility] Comment on above: Negative 0 - 19 Weak positive 20 - 30 Moderate to strong positive >30 Actin Antibodies are found in 52-85% of patients with autoimmune hepatitis or chronic active hepatitis and in 22% of patients with primary biliary cirrhosis. Albumin to globulin ratioOrd ered By: Ashley Caruso on 03-03-2024 Albumin/Globulin [Mass ratio] 0.8 {ratio} Low 0.9-2.[address] [facility] Atypical perinuclear antineu trophil cytoplasmic antibodies measurementOrdered By: Ashley Caruso on 03-03-2024 Atypical p-ANCA <1:20 titer Neg:<1:[address] [facility] Comment on above: The atypical pANCA p attern has been observed in asignificant percentage of patients with ulcerative colitis,primary sclerosing cholangitis and autoimmune hepatitis. Bilirubin, totalOrdered By: Ashley Caruso on 03-03-2024 Bilirubin [Mass/Vol] 0.40 mg/dL 0.20-1.00 [facility] Comment on above: For patients on eltr ombopag therapy, use of Dimension Saranac TBIL is not recommended. Blood urea nitrogen (BUN)/cr eatinine ratioOrdered By: Ashley Caruso on 03-03-2024 Urea nitrogen/Creatinine [Mass ratio] 14.0 mg/mg 10-[address] [facility] C-reactive protein measureme nt by high sensitivity methodOrdered By: Ashley Caruso on 03-03-2024 C-Reactive Protein High Sensitivity 4.76 mg/L High 0.00-3.[address] [facility] Comment on above: Relative Risk for Fu ture Cardiovascular Event Low <1.00 Average 1.00 - 3.00 High >3.00Performed at: [facility] - [facility] [address] [id number] Director: Juan C Valladares PhD, Phone: [phone] Calprotectin stoolOrdered By : Ashley Caruso on 03-03-2024 Stool Calprotectin 98 ug/g 0-120 [facility] Comment on above: Concentration Interp retation Follow-Up< 5 - 50 ug/g Normal None>50 -120 ug/g Borderline Re-evaluate in 4-6 weeks >120 ug/g Abnormal Repeat as clinically indicatedPerformed at: [facility] - [facility] [address] [id number] Director: Bettina Jimenez MD, Phone: [phone] Carbon dioxide measurementOr dered By: Ashley Caruso on 03-03-2024 CO2 [Moles/Vol] 26.0 mmol/L 21.0-32.[address] [facility] Centromere B antibody assayO rdered By: Ashley Caruso on 03-03-2024 Centromere B Antibody <0.2 AI 0.0-0.9 [facility] Comment on above: Previous reported re sult: TNP AIEdited by: SHAHEEN on 03/06/24:1306 AMENDED REPORT 03/06/24 1306 ANTI-CENT B previously reported as: Test not performed Chloride measurementOrdered By: Ashley Caruso on 03-03-2024 Chloride [Moles/Vol] 101 mmol/L 98-107 [facility] Chromatin antibody assayOrde red By: Ashley Caruso on 03-03-2024 Antichromatin Antibodies <0.2 AI 0.0-0.[address] [facility] Comment on above: Previous reported re sult: TNP AIEdited by: SHAHEEN on 03/06/24:1306 AMENDED REPORT 03/06/24 1306 ANTICHROMATIN previously reported as: Test not performed Comprehensive Metabolic Prof ilon 03-03-2024 Albumin [Mass/Vol] 3.7 g/dL Normal 3.2-5.0 [facility] Comment on above: Performed By: #### L 500.4050, L501.5101, L506.1000, L3300.1200, L3100.5440, L803.2200, L3100.7870, L800.1280, L503.0105 ####[facility] [address] [place], [address] Albumin/Globulin [Mass ratio] 0.8 {ratio} Low 0.9-2.[address] [facility] Comment on above: Performed By: #### L 500.4050, L501.5101, L506.1000, L3300.1200, L3100.5440, L803.2200, L3100.7870, L800.1280, L503.0105 ####[facility] [address] [place], [address] ALK P 106 U/L Normal 45-[address] [facility] Comment on above: Performed By: #### L 500.4050, L501.5101, L506.1000, L3300.1200, L3100.5440, L803.2200, L3100.7870, L800.1280, L503.0105 ####[facility] [address] [place], [address] ALT [Catalytic activity/Vol] 36 U/L Normal 13-[address] [facility] Comment on above: Performed By: #### L 500.4050, L501.5101, L506.1000, L3300.1200, L3100.5440, L803.2200, L3100.7870, L800.1280, L503.0105 ####[facility] [address] [place], [address] AST [Catalytic activity/Vol] 28 U/L Normal 15-[address] [facility] Comment on above: Performed By: #### L 500.4050, L501.5101, L506.1000, L3300.1200, L3100.5440, L803.2200, L3100.7870, L800.1280, L503.0105 ####[facility] [address] [place], [address] Bilirubin [Mass/Vol] 0.40 mg/dL Normal 0.20-1.00 [facility] Comment on above: Result Comment: For patients on eltrombopag therapy, use of Dimension Saranac TBIL is not recommended. Performed By: #### L 500.4050, L501.5101, L506.1000, L3300.1200, L3100.5440, L803.2200, L3100.7870, L800.1280, L503.0105 ####[facility] [address] [place], [address] BUN/CRE 14.0 RATIO Normal 10-[address] [facility] Comment on above: Performed By: #### L 500.4050, L501.5101, L506.1000, L3300.1200, L3100.5440, L803.2200, L3100.7870, L800.1280, L503.0105 ####[facility] [address] [place], [address] CA,Total 9.5 mg/dL Normal 8.5-10.[address] [facility] Comment on above: Performed By: #### L 500.4050, L501.5101, L506.1000, L3300.1200, L3100.5440, L803.2200, L3100.7870, L800.1280, L503.0105 ####[facility] [address] [place], [address] Chloride [Moles/Vol] 101 mmol/L Normal 98-107 [facility] Comment on above: Performed By: #### L 500.4050, L501.5101, L506.1000, L3300.1200, L3100.5440, L803.2200, L3100.7870, L800.1280, L503.0105 ####[facility] [address] [place], [address] CO2 [Moles/Vol] 26.0 mmol/L Normal 21.0-32.[address] [facility] Comment on above: Performed By: #### L 500.4050, L501.5101, L506.1000, L3300.1200, L3100.5440, L803.2200, L3100.7870, L800.1280, L503.0105 ####[facility] [address] [place], [address] Creatinine [Mass/Vol] 1.50 mg/dL High 0.55-1.02 [facility] Comment on above: Result Comment: The validity of the calculated GFR GFRAA in patients over70 years has not been determined. Clinical correlation isessential. Performed By: #### L 500.4050, L501.5101, L506.1000, L3300.1200, L3100.5440, L803.2200, L3100.7870, L800.1280, L503.0105 ####[facility] [address] [place], [address] EST GFR - AA 50 mL/min Low >[address] [facility] Comment on above: Result Comment: Afri can Trinidadian GFR Calc Performed By: #### L 500.4050, L501.5101, L506.1000, L3300.1200, L3100.5440, L803.2200, L3100.7870, L800.1280, L503.0105 ####[facility] [address] [place], [address] GAP 8 Normal 5-[address] [facility] Comment on above: Performed By: #### L 500.4050, L501.5101, L506.1000, L3300.1200, L3100.5440, L803.2200, L3100.7870, L800.1280, L503.0105 ####[facility] [address] [place], [place], [id number]) GFR/1.73 sq M.predicted among non-blacks MDRD (S/P/Bld) [Vol rate/Area] 42 mL/min/{1.73_m2} Low >[address] [facility] Comment on above: Result Comment: Non- GFR Calc Performed By: #### L 500.4050, L501.5101, L506.1000, L3300.1200, L3100.5440, L803.2200, L3100.7870, L800.1280, L503.0105 ####[facility] [address] [place], [address] Globulin (S) [Mass/Vol] 4.5 g/dL High 2.2-4.[address] [facility] Comment on above: Performed By: #### L 500.4050, L501.5101, L506.1000, L3300.1200, L3100.5440, L803.2200, L3100.7870, L800.1280, L503.0105 ####[facility] [address] [place], [address] Glucose [Mass/Vol] 100 mg/dL Normal 74-106 [facility] Comment on above: Result Comment: Fast ing Glucose result from 100 to 125 mg/dLsuggests IMPAIRED HOMEOSTASIS per A.D.A. criteria. Performed By: #### L 500.4050, L501.5101, L506.1000, L3300.1200, L3100.5440, L803.2200, L3100.7870, L800.1280, L503.0105 ####[facility] [address] [place], [address] Potassium [Moles/Vol] 3.7 mmol/L Normal 3.5-5.1 [facility] Comment on above: Performed By: #### L 500.4050, L501.5101, L506.1000, L3300.1200, L3100.5440, L803.2200, L3100.7870, L800.1280, L503.0105 ####[facility] [address] [place], [address] Sodium [Moles/Vol] 135 mmol/L Low 136-145 [facility] Comment on above: Performed By: #### L 500.4050, L501.5101, L506.1000, L3300.1200, L3100.5440, L803.2200, L3100.7870, L800.1280, L503.0105 ####[facility] [address] [place], [address] T PROT 8.2 g/dL Normal 6.4-8.[address] [facility] Comment on above: Performed By: #### L 500.4050, L501.5101, L506.1000, L3300.1200, L3100.5440, L803.2200, L3100.7870, L800.1280, L503.0105 ####[facility] [address] [place], [address] Urea nitrogen [Mass/Vol] 21 mg/dL High 7-[address] [facility] Comment on above: Performed By: #### L 500.4050, L501.5101, L506.1000, L3300.1200, L3100.5440, L803.2200, L3100.7870, L800.1280, L503.0105 ####[facility] [address] [place], [address] DNA double strand Ab Qn (S)O rdered By: Ashley Caruso on 03-03-2024 Anti-Double Strand DNA Antibody 1 IU/mL 0-[address] [facility] Comment on above: Negative <5 Equivoca l 5 - 9 Positive >9Previous reported result: TNP IU/mLEdited by: SHAHEEN on 03/06/24:1306 AMENDED REPORT 03/06/24 1306 dsDNA AB previously reported as: Test not performed Estimated glomerular filtrat ion rate (GFR) AmericanOrdered By: Ashley Caruso on 03-03-2024 Estimated GFR (MDRD) Amer 50 mL/min Low >[address] [facility] Comment on above: GFR Calc Gamma glutamyl transferase ( GGT) measurementOrdered By: Ashley Caruso on 03-03-2024 Amylase [Catalytic activity/Vol] 26 U/L 0-[address] [facility] Comment on above: Performed at: [address] [id number] Director: Juan C Valladares PhD, Phone: [phone] Gastroenterology Visit Repor ton 03-03-2024 Gastroenterology Visit Report Normal [facility] Glomerular filtration rate ( GFR) estimationOrdered By: Ashley Caruso on 03-03-2024 Estimated GFR (MDRD) Non-Af Amer 42 mL/min Low >[address] [facility] Comment on above: Non- GFR Calc Glucose measurementOrdered B y: Ashley Caruso on 03-03-2024 Glucose [Mass/Vol] 100 mg/dL 74-106 [facility] Comment on above: Fasting Glucose resu lt from 100 to 125 mg/dL suggests IMPAIRED HOMEOSTASIS per A.D.A. criteria. Carmen-1 antibody assayOrdered B y: Ashley Caruso on 03-03-2024 CARMEN-1 Antibody <0.2 AI 0.0-0.[address] [facility] Comment on above: Previous reported re sult: TNP AIEdited by: SHAHEEN on 03/06/24:1306 AMENDED REPORT 03/06/24 1306 ANTI-CARMEN previously reported as: Test not performed Laboratory - Chemistry and C hemistry - challengeOrdered By: Ashley Caruso on 03-03-2024 AST [Catalytic activity/Vol] 28 U/L 15-[address] [facility] Lactoferrin IA Ql (Stl)Order ed By: Ashley Caruso on 03-03-2024 Stool Lactoferrin [facility] Mitochondria Ab Ql (S)Ordere d By: Ashley Caruso on 03-03-2024 Anti-Mitochondrial Antibody <20.0 Units 0.0-20.[address] [facility] Comment on above: Negative 0.0 - 20.0 Equivocal 20.1 - 24.9 Positive >24.9Mitochondrial (M2) Antibodies are found in 90-96% ofpatients with primary biliary cirrhosis. Neutrophil cytoplasmic Ab.cl assic Qn (S)Ordered By: Ashley Caruso on 03-03-2024 Cytoplasmic ANCA (c-ANCA) Antibody <1:20 titer Neg:<1:[address] [facility] Neutrophil cytoplasmic Ab.pe rinuclear IF (S) [Titer]Ordered By: Ashley Caruso on 03-03-2024 Perinuclear ANCA (p-ANCA) Antibody <1:20 titer Neg:<1:[address] [facility] Comment on above: The presence of posi tive fluorescence exhibiting P-ANCA orC-ANCA patterns alone is not specific for the diagnosis ofWegener's Granulomatosis (WG) or microscopic polyangiitis.Decisions about treatment should not be based solely onANCA IFA results. The International ANCA Group Consensusrecommends follow up testing of positive sera with both MO-3 and MPO-ANCA enzyme immunoassays. As many as 5% serumsamples are positive only by EIA. Ref. AM J Clin [id number];111:507-513. Potassium measurementOrdered By: Ashley Caruso on 03-03-2024 Potassium [Moles/Vol] 3.7 mmol/L 3.5-5.1 [facility] FOREST ECONOMICS PROFESSOR abOrdered By: Ashley hidalgo on 03-03-2024 FOREST ECONOMICS PROFESSOR Antibody <0.2 AI 0.0-0.[address] [facility] Comment on above: Previous reported re sult: TNP AIEdited by: SHAHEEN on 03/06/24:1306 AMENDED REPORT 03/06/24 1306 FOREST ECONOMICS PROFESSOR Ab previously reported as: Test not performed SCL-70 extractable nuclear A b Qn (S)Ordered By: Ashley Caruso on 03-03-2024 Scl-70 (Scleroderma) Antibody <0.2 AI 0.0-0.[address] [facility] Comment on above: Previous reported re sult: TNP AIEdited by: SHAHEEN on 03/06/24:1306 AMENDED REPORT 03/06/24 1306 ANTISCLER previously reported as: Test not performed SS-A IgG antibody assayOrder ed By: Ashley Caruso on 03-03-2024 SS-A/Ro IgG Antibody < 0.2 AI 0.0-0.9 [facility] Comment on above: Previous reported re sult: TNP AIEdited by: SHAHEEN on 03/06/24:1306 AMENDED REPORT 03/06/24 1306 Anti-SS-A previously reported as: Test not performed SS-B IgG antibody assayOrder ed By: Ashley Caruso on 03-03-2024 SS-B/La IgG Antibody < 0.2 AI 0.0-0.9 [facility] Comment on above: Previous reported re sult: TNP AIEdited by: SHAHEEN on 03/06/24:1306 AMENDED REPORT 03/06/24 1306 Anti-SS-B previously reported as: Test not performed Serum anion gap measurementO rdered By: Ashley Caruso on 03-03-2024 Anion gap [Moles/Vol] 8 mmol/L 5-15 [facility] Serum globulin measurementOr dered By: Ashley Caruso on 03-03-2024 Globulin (S) [Mass/Vol] 4.5 g/dL High 2.2-4.[address] [facility] Serum or plasma alanine mendieta otransferase (ALT) measurementOrdered By: Ashley Caruso on 03-03-2024 ALT [Catalytic activity/Vol] 36 U/L 13-[address] [facility] Serum or plasma albumin joselyn urement (mass/volume)Ordered By: Ashley Caruso on 03-03-2024 Albumin [Mass/Vol] 3.7 g/dL 3.2-5.0 [facility] Serum or plasma alkaline samantha sphatase measurementOrdered By: Ashley Caruso on 03-03-2024 ALP [Catalytic activity/Vol] 106 U/L 45-[address] [facility] Serum or plasma calcium joselyn urement (mass/volume)Ordered By: Ashley Caruso on 03-03-2024 Calcium [Mass/Vol] 9.5 mg/dL 8.5-10.1 [facility] Serum or plasma creatinine m easurement (mass/volume)Ordered By: Ashley Crauso on 03-03-2024 Creatinine [Mass/Vol] 1.50 mg/dL High 0.55-1.02 [facility] Comment on above: The validity of the calculated GFR & GFRAA in patients over 70 years has not been determined. Clinical correlation is essential. Serum or plasma urea nitroge n measurement (mass/volume)Ordered By: Ashley Caruso on 03-03-2024 Urea nitrogen [Mass/Vol] 21 mg/dL High 7-[address] [facility] Villagomez antibody assayOrdered By: Ashley Caruso on 03-03-2024 SM Antibody <0.2 AI 0.0-0.[address] [facility] Comment on above: Previous reported re sult: TNP AIEdited by: SHAHEEN on 03/06/24:1306 AMENDED REPORT 03/06/24 1306 RAFFAELE Ab previously reported as: Test not performed Sodium levelOrdered By: Norma Caruso on 03-03-2024 Sodium [Moles/Vol] 135 mmol/L Low 136-145 [facility] Stool Lactoferrin/WBCon 02-10 WBCST Normal Reference Ran ge = Negative Fecal WBC Lactoferrin A Positive: Fecal WBC Lactoferrin present A Normal [facility] Comment on above: Performed By: #### L 7000.0700, M100.0605 ####[facility] [address] [place], [address] Total proteinOrdered By: Ivette Caruso on 03-03-2024 Protein [Mass/Vol] 8.2 g/dL 6.4-8.2 [facility] Vitamin B12on 03-03-2024 Cobalamin (Vitamin B12) [Mass/Vol] 863 pg/mL Normal [facility] Comment on above: Performed By: #### L 500.4050, L501.5101, L506.1000, L3300.1200, L3100.5440, L803.2200, L3100.7870, L800.1280, L503.0105 ####[facility] [address] [place], [place], [id number] Vitamin B12 measurementOrder ed By: Ashley Caruso on 03-03-2024 Cobalamin (Vitamin B12) [Mass/Vol] 863 pg/mL [facility] Vitamin D,25 Hydroxyon 03-03 Vitamin D 25-OH 30.0 ng/mL Normal [facility] Comment on above: Result Comment: Molly min D 25(OH) Status Range Deficiency <20 ng/mL (50nmol/L) Insufficiency 20 - 30 ng/mL (50 - 75 nmol/L) Sufficiency 30 - 100 ng/mL (75 - 250 nmol/L) Toxicity >100 ng/mL (>250 nmol/L) Performed By: #### L 500.4050, L501.5101, L506.1000, L3300.1200, L3100.5440, L803.2200, L3100.7870, L800.1280, L503.0105 ####[facility] [address] [place], [address] 12 Lead EKGon 02-29-2024 12 Lead EKG Normal [facility] Absolute neutrophil countOrd ered By: Jose Guadalupe Lazo on 02-29-2024 Neutrophils (Bld) [#/Vol] 12.4 10*3/uL High 2.0-7.[address] [facility] Atypical lymphocyte percenta geOrdered By: Jose Guadalupe Lazo on 02-29-2024 Atypical Lymphocytes 1+ % [facility] Basic Metabolic Profile (BMP )on 02-29-2024 BUN/CRE 11.2 RATIO Normal - [facility] Comment on above: Order Comment: 'TROP ' Serial specimen #1, #2 or #3: 1 Performed By: #### L 500.2500, L100.0100, L501.4020 ####[facility] [address] [place], [address] CA,Total 9.2 mg/dL Normal 8.5-10.[address] [facility] Comment on above: Order Comment: 'TROP ' Serial specimen #1, #2 or #3: 1 Performed By: #### L 500.2500, L100.0100, L501.4020 ####[facility] [address] [place], [address] Chloride [Moles/Vol] 107 mmol/L Normal 98-107 [facility] Comment on above: Order Comment: 'TROP ' Serial specimen #1, #2 or #3: 1 Performed By: #### L 500.2500, L100.0100, L501.4020 ####[facility] [address] [place], [address] CO2 [Moles/Vol] 24.0 mmol/L Normal 21.0-32.[address] [facility] Comment on above: Order Comment: 'TROP ' Serial specimen #1, #2 or #3: 1 Performed By: #### L 500.2500, L100.0100, L501.4020 ####[facility] [address] [place], [address] Creatinine [Mass/Vol] 1.16 mg/dL High 0.55-1.02 [facility] Comment on above: Order Comment: 'TROP ' Serial specimen #1, #2 or #3: 1 Result Comment: The validity of the calculated GFR GFRAA in patients over70 years has not been determined. Clinical correlation isessential. Performed By: #### L 500.2500, L100.0100, L501.4020 ####[facility] [address] [place], [address] ECRCL 38.04 ml/min Normal [facility] Comment on above: Order Comment: 'TROP ' Serial specimen #1, #2 or #3: 1 Performed By: #### L 500.2500, L100.0100, L501.4020 ####[facility] [address] [place], [address] EST GFR - AA 68 mL/min Normal >[address] [facility] Comment on above: Order Comment: 'TROP ' Serial specimen #1, #2 or #3: 1 Result Comment: Afri can Trinidadian GFR Calc Performed By: #### L 500.2500, L100.0100, L501.4020 ####[facility] [address] [place], [address] GAP 6 Normal 5-[address] [facility] Comment on above: Order Comment: 'TROP ' Serial specimen #1, #2 or #3: 1 Performed By: #### L 500.2500, L100.0100, L501.4020 ####[facility] [address] [place], [address] GFR/1.73 sq M.predicted among non-blacks MDRD (S/P/Bld) [Vol rate/Area] 56 mL/min/{1.73_m2} Low >[address] [facility] Comment on above: Order Comment: 'TROP ' Serial specimen #1, #2 or #3: 1 Result Comment: Non- GFR Calc Performed By: #### L 500.2500, L100.0100, L501.4020 ####[facility] [address] [place], [address] Glucose [Mass/Vol] 101 mg/dL Normal 74-106 [facility] Comment on above: Order Comment: 'TROP ' Serial specimen #1, #2 or #3: 1 Result Comment: Fast ing Glucose result from 100 to 125 mg/dLsuggests IMPAIRED HOMEOSTASIS per A.D.A. criteria. Performed By: #### L 500.2500, L100.0100, L501.4020 ####[facility] [address] [place], [address] Potassium [Moles/Vol] 3.1 mmol/L Low 3.5-5.1 [facility] Comment on above: Order Comment: 'TROP ' Serial specimen #1, #2 or #3: 1 Performed By: #### L 500.2500, L100.0100, L501.4020 ####[facility] [address] [place], [address] Sodium [Moles/Vol] 137 mmol/L Normal 136-145 [facility] Comment on above: Order Comment: 'TROP ' Serial specimen #1, #2 or #3: 1 Performed By: #### L 500.2500, L100.0100, L501.4020 ####[facility] [address] [place], [address] Urea nitrogen [Mass/Vol] 13 mg/dL Normal 7-[address] [facility] Comment on above: Order Comment: 'TROP ' Serial specimen #1, #2 or #3: 1 Performed By: #### L 500.2500, L100.0100, L501.4020 ####[facility] [address] [place], [address] Blood lymphocytes/100 leukoc ytesOrdered By: Jose Guadalupe Lazo on 02-29-2024 Lymphocytes/100 WBC (Bld) 12 % Low 19-[address] [facility] Blood metamyelocytes/100 belinda kocytesOrdered By: Jose Guadalupe Lazo on 02-29-2024 Metamyelocytes/100 WBC (Bld) 2 % High 0-[address] [facility] Blood monocytes/100 leukocyt esOrdered By: Jose Guadalupe Lazo on 02-29-2024 Monocytes/100 WBC (Bld) 4 % 0-[address] [facility] Blood urea nitrogen (BUN)/cr eatinine ratioOrdered By: Jose Guadalupe Lazo on 02-29-2024 Urea nitrogen/Creatinine [Mass ratio] 11.2 mg/mg 10-[address] [facility] Carbon dioxide measurementOr dered By: Jose Guadalupe Lazo on 02-29-2024 CO2 [Moles/Vol] 24.0 mmol/L 21.0-32.[address] [facility] Cells counted Molgen (Bld/Ti ss) [#]Ordered By: Jose Guadalupe Lazo on 02-29-2024 Differential Total Cells Counted 100 MANUAL DIFF [facility] Chloride measurementOrdered By: Jose Guadalupe Lazo on 02-29-2024 Chloride [Moles/Vol] 107 mmol/L 98-107 [facility] Emergency Department Summary on 02-29-2024 Emergency Department Summary Normal [facility] Erythrocyte distribution wid th ratioOrdered By: Jose Guadalupe Lazo on 02-29-2024 Erythrocyte distribution width (RBC) [Ratio] 14.1 % 11.6-14.[address] [facility] Erythrocyte distribution wid th standard deviationOrdered By: Jose Guadalupe Lazo on 02-29-2024 Erythrocyte distribution width (RBC) [Entitic vol] 43.1 fL 35.1-43.[address] [facility] Estimated glomerular filtrat ion rate (GFR) AmericanOrdered By: Jose Guadalupe Lazo on 02-29-2024 Estimated GFR (MDRD) Amer 68 mL/min >[address] [facility] Comment on above: GFR Calc Estimation of creatinine sammie aranceOrdered By: Jose Guadalupe Lazo on 02-29-2024 Estimated Creatinine Clearance Calc 38.04 ml/min [facility] Glomerular filtration rate ( GFR) estimationOrdered By: Jose Guadalupe Lazo on 02-29-2024 Estimated GFR (MDRD) Non-Af Amer 56 mL/min Low >[address] [facility] Comment on above: Non- GFR Calc Glucose measurementOrdered B y: Jose Guadalupe Lazo on 02-29-2024 Glucose [Mass/Vol] 101 mg/dL 74-106 [facility] Comment on above: Fasting Glucose resu lt from 100 to 125 mg/dL suggests IMPAIRED HOMEOSTASIS per A.D.A. criteria. Hematocrit Auto (Bld) [Volum e fraction]Ordered By: Jose Guadalupe Lazo on 02-29-2024 Hematocrit (Bld) [Volume fraction] 49.7 % High 37-[address] [facility] Hemoglobin measurementOrdere d By: Jose Guadalupe Lazo on 02-29-2024 Hemoglobin (Bld) [Mass/Vol] 16.5 g/dL High 12.0-15.[address] [facility] L501.4020on 02-29-2024 TROPONIN-I HS < 3 Low 3.0-54.[address] [facility] Comment on above: Order Comment: 'TROP ' Serial specimen #1, #2 or #3: 1 Result Comment: Beatriz person Note: New Test Units and Gender Specific Reference Ranges. For more information see Policy Stat Procedure [place] High Sensitivity Troponin (TNIH) and attachments. Performed By: #### L 500.2500, L100.0100, L501.4020 ####[facility] [address] [place], [place], [address] Laboratory - Hematology and Cell countsOrdered By: Jose Guadalupe Lazo on 02-29-2024 Anisocytosis Ql (Bld) 1+ [facility] Lymphocytes Auto (Unsp spec) [#/Vol]Ordered By: Jose Guadalupe Lazo on 02-29-2024 Lymphocytes (Bld) [#/Vol] 1.86 10*3/uL 0.83-4.[address] [facility] MCV (mean corpuscular volume ) determinationOrdered By: Jose Guadalupe Lazo on 02-29-2024 MCV (RBC) [Entitic vol] 85.8 fL 81-[address] [facility] Mean corpuscular hemoglobin (MCH) determinationOrdered By: Jose Guadalupe Lazo on 02-29-2024 MCH (RBC) [Entitic mass] 28.5 pg 27.0-32.[address] [facility] Mean corpuscular hemoglobin concentration (MCHC) determinationOrdered By: Jose Guadalupe Lazo on 02-29-2024 MCHC (RBC) [Mass/Vol] 33.2 g/dL 32-36 [facility] Mean platelet volume determi nationOrdered By: Jose Guadalupe Lazo on 02-29-2024 Platelet mean volume (Bld) [Entitic vol] 9.0 fL 6.2-12.[address] [facility] Myelocyte %Ordered By: Jose Guadalupe Lazo on 02-29-2024 Myelocytes/100 WBC (Bld) 2 % High 0-[address] [facility] Neutrophil percentageOrdered By: Jose Guadalupe Lazo on 02-29-2024 Neutrophils (%) (Auto) Not Reportable [facility] Neutrophils.hypersegmented ( Bld) [#/Vol]Ordered By: Jose Guadalupe Lazo on 02-29-2024 Hypersegmented Neutrophils 1+ High [facility] Pathologist review Nick (Unsp spec) [Interp]Ordered By: Jose Guadalupe Lazo on 02-29-2024 Differential Pathologist's Review Reviewed [facility] Comment on above: Previous reported re [...] Platelets (Bld) [#/Vol] 545 10*3/uL High 150-[address] [facility] Platelet morphology finding Nom (Bld)Ordered By: Jose Guadalupe Lazo on 02-29-2024 Platelet Morphology Comment LARGE [facility] Polychromasia LM Ql (Bld)Ord ered By: Jose Guadalupe Lazo on 02-29-2024 Polychromasia 1+ [facility] Potassium measurementOrdered By: Jose Guadalupe Lazo on 02-29-2024 Potassium [Moles/Vol] 3.1 mmol/L Low 3.5-5.1 [facility] RBC Auto (Bld) [#/Vol]Ordere d By: Jose Guadalupe Lazo on 02-29-2024 RBC (Bld) [#/Vol] 5.79 10*6/uL High 4.2-5.[address] [facility] Segmented neutrophils/100 WB C (Bld)Ordered By: Jose Guadalupe Lazo on 02-29-2024 Neutrophils/100 WBC (Bld) 80 % High 47-[address] [facility] Serum anion gap measurementO rdered By: Jose Guadalupe Lazo on 02-29-2024 Anion gap [Moles/Vol] 6 mmol/L 5-15 [facility] Serum or plasma calcium joselyn urement (mass/volume)Ordered By: Jose Guadalupe Lazo on 02-29-2024 Calcium [Mass/Vol] 9.2 mg/dL 8.5-10.1 [facility] Serum or plasma creatinine m easurement (mass/volume)Ordered By: Jose Guadalupe Lazo on 02-29-2024 Creatinine [Mass/Vol] 1.16 mg/dL High 0.55-1.02 [facility] Comment on above: The validity of the calculated GFR & GFRAA in patients over 70 years has not been determined. Clinical correlation is essential. Serum or plasma urea nitroge n measurement (mass/volume)Ordered By: Jose Guadalupe Lazo on 02-29-2024 Urea nitrogen [Mass/Vol] 13 mg/dL 7-[address] [facility] Sodium levelOrdered By: Jose Guadalupe Lazo on 02-29-2024 Sodium [Moles/Vol] 137 mmol/L 136-145 [facility] Troponin IOrdered By: Jose Guadalupe monte on 02-29-2024 Troponin I High Sensitivity < 3 pg/mL Low 3.0-54.[address] [facility] Comment on above: Please Note: New Saira t Units and Gender Specific Reference Ranges. For more information see Policy Stat Procedure [place] High Sensitivity Troponin (TNIH) and attachments. White blood cell (WBC) count Ordered By: Jose Guadalupe Lazo on 02-29-2024 WBC (Bld) [#/Vol] 15.5 10*3/uL High 4.4-11.[address] [facility] Influenza virus A and B and SARS-CoV-2 (COVID-19) and Respiratory syncytial virus RNAOrdered By: Antonio Roman on 02-21-2024 SARS-CoV-2 (COVID-19) RNA ISAK+probe Ql (Unsp spec) [facility] Internal Medicine Office Vis iton 02-21-2024 Internal Medicine Office Visit Normal [facility] M100.678on 02-21-2024 M100.678 Pending SARS-CoV-2 (COVID 19) Negative INFLUENZA A Negative INFLUENZA B Negative RSV PCR Negative Normal [facility] Comment on above: Performed By: #### M 100.678 ####[facility] [address] [place], [address] Albumin to globulin ratioOrd ered By: Ildefonso Duran on 02-07-2024 Albumin/Globulin [Mass ratio] 0.7 {ratio} Low 0.9-2.[address] [facility] Bilirubin, totalOrdered By: Ildefonso Duran on 02-07-2024 Bilirubin [Mass/Vol] 0.40 mg/dL 0.20-1.00 [facility] Comment on above: For patients on eltr ombopag therapy, use of Dimension [place] TBIL is not recommended. Blood urea nitrogen (BUN)/cr eatinine ratioOrdered By: Ildefonso Duran on 02-07-2024 Urea nitrogen/Creatinine [Mass ratio] 12.8 mg/mg 10-[address] [facility] CBC-Complete Blood Cnt No Di ffon 02-07-2024 Erythrocyte distribution width (RBC) [Ratio] 13.3 % Normal 11.6-14.[address] [facility] Comment on above: Performed By: #### L 100.0500, L501.5425, L500.4050 ####[facility] [address] [place], [address] Hematocrit (Bld) [Volume fraction] 45.8 % Normal 37-[address] [facility] Comment on above: Performed By: #### L 100.0500, L501.5425, L500.4050 ####[facility] [address] [place], [address] Hemoglobin (Bld) [Mass/Vol] 16.0 g/dL High 12.0-15.[address] [facility] Comment on above: Performed By: #### L 100.0500, L501.5425, L500.4050 ####[facility] [address] [place], [address] MCH (RBC) [Entitic mass] 28.8 pg Normal 27.0-32.[address] [facility] Comment on above: Performed By: #### L 100.0500, L501.5425, L500.4050 ####[facility] [address] [place], [address] MCHC (RBC) [Mass/Vol] 34.9 g/dL Normal 32-36 [facility] Comment on above: Performed By: #### L 100.0500, L501.5425, L500.4050 ####[facility] [address] [place], [address] MCV (RBC) [Entitic vol] 82.4 fL Normal 81-[address] [facility] Comment on above: Performed By: #### L 100.0500, L501.5425, L500.4050 ####[facility] [address] [place], [address] Platelet mean volume (Bld) [Entitic vol] 9.1 fL Normal 6.2-12.[address] [facility] Comment on above: Performed By: #### L 100.0500, L501.5425, L500.4050 ####[facility] [address] [place], [address] Platelets (Bld) [#/Vol] 486 10*3/uL High 150-[address] [facility] Comment on above: Performed By: #### L 100.0500, L501.5425, L500.4050 ####[facility] [address] [place], [address] RBC (Bld) [#/Vol] 5.56 10*6/uL High 4.2-5.[address] [facility] Comment on above: Performed By: #### L 100.0500, L501.5425, L500.4050 ####[facility] [address] [place], [address] RDW SD 39.2 fl Normal 35.1-43.[address] [facility] Comment on above: Performed By: #### L 100.0500, L501.5425, L500.4050 ####[facility] [address] [place], [address] WBC (Bld) [#/Vol] 13.1 10*3/uL High 4.4-11.[address] [facility] Comment on above: Performed By: #### L 100.0500, L501.5425, L500.4050 ####[facility] [address] [place], [address] Carbon dioxide measurementOr dered By: Ildefonso Duran on 02-07-2024 CO2 [Moles/Vol] 21.0 mmol/L 21.0-32.[address] [facility] Chest 1 View (Portable)on Chest 1 View (Portable) Normal [facility] Chloride measurementOrdered By: Ildefonso Duran on 02-07-2024 Chloride [Moles/Vol] 101 mmol/L 98-107 [facility] Comprehensive Metabolic Prof ilon 02-07-2024 Albumin [Mass/Vol] 3.3 g/dL Normal 3.2-5.0 [facility] Comment on above: Order Comment: 1Y Performed By: #### L 100.0500, L501.5425, L500.4050 ####[facility] [address] [place], [address] Albumin/Globulin [Mass ratio] 0.7 {ratio} Low 0.9-2.[address] [facility] Comment on above: Order Comment: 1Y Performed By: #### L 100.0500, L501.5425, L500.4050 ####[facility] [address] [place], [address] ALK P 142 U/L High 45-[address] [facility] Comment on above: Order Comment: 1Y Performed By: #### L 100.0500, L501.5425, L500.4050 ####[facility] [address] [place], [address] ALT [Catalytic activity/Vol] 38 U/L Normal 13-[address] [facility] Comment on above: Order Comment: 1Y Performed By: #### L 100.0500, L501.5425, L500.4050 ####[facility] [address] [place], [address] AST [Catalytic activity/Vol] 31 U/L Normal 15-[address] [facility] Comment on above: Order Comment: 1Y Performed By: #### L 100.0500, L501.5425, L500.4050 ####[facility] [address] [place], [address] Bilirubin [Mass/Vol] 0.40 mg/dL Normal 0.20-1.00 [facility] Comment on above: Order Comment: 1Y Result Comment: For patients on eltrombopag therapy, use of Dimension [place] TBIL is not recommended. Performed By: #### L 100.0500, L501.5425, L500.4050 ####[facility] [address] [place], [address] BUN/CRE 12.8 RATIO Normal 10-[address] [facility] Comment on above: Order Comment: 1Y Performed By: #### L 100.0500, L501.5425, L500.4050 ####[facility] [address] [place], [address] CA,Total 9.2 mg/dL Normal 8.5-10.[address] [facility] Comment on above: Order Comment: 1Y Performed By: #### L 100.0500, L501.5425, L500.4050 ####[facility] [address] [place], [address] Chloride [Moles/Vol] 101 mmol/L Normal 98-107 [facility] Comment on above: Order Comment: 1Y Performed By: #### L 100.0500, L501.5425, L500.4050 ####[facility] [address] [place], [address] CO2 [Moles/Vol] 21.0 mmol/L Normal 21.0-32.[address] [facility] Comment on above: Order Comment: 1Y Performed By: #### L 100.0500, L501.5425, L500.4050 ####[facility] [address] [place], [address] Creatinine [Mass/Vol] 1.33 mg/dL High 0.55-1.02 [facility] Comment on above: Order Comment: 1Y Result Comment: The validity of the calculated GFR GFRAA in patients over70 years has not been determined. Clinical correlation isessential. Performed By: #### L 100.0500, L501.5425, L500.4050 ####[facility] [address] [place], [address] ECRCL 33.18 ml/min Normal [facility] Comment on above: Order Comment: 1Y Performed By: #### L 100.0500, L501.5425, L500.4050 ####[facility] [address] [place], [address] EST GFR - AA 58 mL/min Low >[address] [facility] Comment on above: Order Comment: 1Y Result Comment: Afri can Trinidadian GFR Calc Performed By: #### L 100.0500, L501.5425, L500.4050 ####[facility] [address] [place], [address] GAP 9 Normal 5-[address] [facility] Comment on above: Order Comment: 1Y Performed By: #### L 100.0500, L501.5425, L500.4050 ####[facility] [address] [place], [address] GFR/1.73 sq M.predicted among non-blacks MDRD (S/P/Bld) [Vol rate/Area] 48 mL/min/{1.73_m2} Low >[address] [facility] Comment on above: Order Comment: 1Y Result Comment: Non- GFR Calc Performed By: #### L 100.0500, L501.5425, L500.4050 ####[facility] [address] [place], [address] Globulin (S) [Mass/Vol] 4.7 g/dL High 2.2-4.[address] [facility] Comment on above: Order Comment: 1Y Performed By: #### L 100.0500, L501.5425, L500.4050 ####[facility] [address] [place], [address] Glucose [Mass/Vol] 97 mg/dL Normal 74-106 [facility] Comment on above: Order Comment: 1Y Performed By: #### L 100.0500, L501.5425, L500.4050 ####[facility] [address] [place], [address] Potassium [Moles/Vol] 4.0 mmol/L Normal 3.5-5.1 [facility] Comment on above: Order Comment: 1Y Performed By: #### L 100.0500, L501.5425, L500.4050 ####[facility] [address] [place], [address] Sodium [Moles/Vol] 131 mmol/L Low 136-145 [facility] Comment on above: Order Comment: 1Y Performed By: #### L 100.0500, L501.5425, L500.4050 ####[facility] [address] [place], [address] T PROT 8.0 g/dL Normal 6.4-8.[address] [facility] Comment on above: Order Comment: 1Y Performed By: #### L 100.0500, L501.5425, L500.4050 ####[facility] [address] [place], [address] Urea nitrogen [Mass/Vol] 17 mg/dL Normal 7-[address] [facility] Comment on above: Order Comment: 1Y Performed By: #### L 100.0500, L501.5425, L500.4050 ####[facility] [address] [place], [address] D-Dimer Quantitative (DVT/PE )on 02-07-2024 D-DIMER QUANT < 0.27 Low 0.27-0.[address] [facility] Comment on above: Result Comment: NORM AL D-Dimer level (<0.50) indicates no DVT or PE. Performed By: #### L 300.8000 ####[facility] [address] [place], [address] D-dimer measurement for deep venous thrombosisOrdered By: Chad Coleman on 02-07-2024 D-Dimer Quantitative (PE/DVT) < 0.27 FEU/ug/m Low 0.27-0.[address] [facility] Comment on above: NORMAL D-Dimer level (<0.50) indicates no DVT or PE. Emergency Department Summary on 02-07-2024 Emergency Department Summary Normal [facility] Erythrocyte distribution wid th ratioOrdered By: Ildefonso Duran on 02-07-2024 Erythrocyte distribution width (RBC) [Ratio] 13.3 % 11.6-14.[address] [facility] Erythrocyte distribution wid th standard deviationOrdered By: Ildefonso Duran on 02-07-2024 Erythrocyte distribution width (RBC) [Entitic vol] 39.2 fL 35.1-43.[address] [facility] Estimated glomerular filtrat ion rate (GFR) AmericanOrdered By: Ildefonso Duran on 02-07-2024 Estimated GFR (MDRD) Amer 58 mL/min Low >[address] [facility] Comment on above: GFR Calc Estimation of creatinine sammie aranceOrdered By: Ildefonso Duran on 02-07-2024 Estimated Creatinine Clearance Calc 33.18 ml/min [facility] Glomerular filtration rate ( GFR) estimationOrdered By: Ildefonso Duran on 02-07-2024 Estimated GFR (MDRD) Non-Af Amer 48 mL/min Low >[address] [facility] Comment on above: Non- GFR Calc Glucose measurementOrdered B y: Ildefonso Duran on 02-07-2024 Glucose [Mass/Vol] 97 mg/dL 74-106 [facility] Hematocrit Auto (Bld) [Volum e fraction]Ordered By: Ildefonso Duran on 02-07-2024 Hematocrit (Bld) [Volume fraction] 45.8 % 37-[address] [facility] Hemoglobin measurementOrdere d By: Ildefonso Duran on 02-07-2024 Hemoglobin (Bld) [Mass/Vol] 16.0 g/dL High 12.0-15.[address] [facility] Influenza virus A and B and SARS-CoV-2 (COVID-19) and Respiratory syncytial virus RNAOrdered By: Ildefonso Duran on 02-07-2024 SARS-CoV-2 (COVID-19) RNA ISAK+probe Ql (Unsp spec) [facility] L501.5425on 02-07-2024 TROPONIN-I HS < 3 Low 3.0-54.[address] [facility] Comment on above: Order Comment: 1Y Result Comment: Plea se Note: New Test Units and Gender Specific Reference Ranges. For more information see Policy Stat Procedure [place] High Sensitivity Troponin (TNIH) and attachments. Performed By: #### L 100.0500, L501.5425, L500.4050 ####[facility] [address] [place], [place], [id number] Laboratory - Chemistry and C hemistry - challengeOrdered By: Ildefonso Duran on 02-07-2024 AST [Catalytic activity/Vol] 31 U/L 15-[address] [facility] M100.678on 02-07-2024 M100.678 Pending SARS-CoV-2 (COVID 19) Negative INFLUENZA A Negative INFLUENZA B Negative RSV PCR Negative Normal [facility] Comment on above: Performed By: #### M 100.678 ####[facility] [address] [place], [place], [id number] MCV (mean corpuscular volume ) determinationOrdered By: Ildefonso Duran on 02-07-2024 MCV (RBC) [Entitic vol] 82.4 fL 81-[address] [facility] Mean corpuscular hemoglobin (MCH) determinationOrdered By: Ildefonso Duran on 02-07-2024 MCH (RBC) [Entitic mass] 28.8 pg 27.0-32.[address] [facility] Mean corpuscular hemoglobin concentration (MCHC) determinationOrdered By: Ildefonso Duran on 02-07-2024 MCHC (RBC) [Mass/Vol] 34.9 g/dL 32-36 [facility] Mean platelet volume determi nationOrdered By: Ildefonso Duran on 02-07-2024 Platelet mean volume (Bld) [Entitic vol] 9.1 fL 6.2-12.[address] [facility] Platelet countOrdered By: Melly Duran on 02-07-2024 Platelets (Bld) [#/Vol] 486 10*3/uL High 150-[address] [facility] Potassium measurementOrdered By: Ildefonso Duran on 02-07-2024 Potassium [Moles/Vol] 4.0 mmol/L 3.5-5.1 [facility] RBC Auto (Bld) [#/Vol]Ordere d By: Ildefonso Duran on 02-07-2024 RBC (Bld) [#/Vol] 5.56 10*6/uL High 4.2-5.[address] [facility] Serum anion gap measurementO rdered By: Ildefonso Duran on 02-07-2024 Anion gap [Moles/Vol] 9 mmol/L 5-15 [facility] Serum globulin measurementOr dered By: Ildefonso Duran on 02-07-2024 Globulin (S) [Mass/Vol] 4.7 g/dL High 2.2-4.[address] [facility] Serum or plasma alanine mendieta otransferase (ALT) measurementOrdered By: Ildefonso Duran on 02-07-2024 ALT [Catalytic activity/Vol] 38 U/L 13-[address] [facility] Serum or plasma albumin joselyn urement (mass/volume)Ordered By: Ildefonso Duran on 02-07-2024 Albumin [Mass/Vol] 3.3 g/dL 3.2-5.0 [facility] Serum or plasma alkaline samantha sphatase measurementOrdered By: Ildefonso Duran on 02-07-2024 ALP [Catalytic activity/Vol] 142 U/L High 45-[address] [facility] Serum or plasma calcium joselyn urement (mass/volume)Ordered By: Ildefonso Duran on 02-07-2024 Calcium [Mass/Vol] 9.2 mg/dL 8.5-10.1 [facility] Serum or plasma creatinine m easurement (mass/volume)Ordered By: Ildefonso Duran on 02-07-2024 Creatinine [Mass/Vol] 1.33 mg/dL High 0.55-1.02 [facility] Comment on above: The validity of the calculated GFR & GFRAA in patients over 70 years has not been determined. Clinical correlation is essential. Serum or plasma urea nitroge n measurement (mass/volume)Ordered By: Ildefonso Duran on 02-07-2024 Urea nitrogen [Mass/Vol] 17 mg/dL 7-[address] [facility] Sodium levelOrdered By: Med Duran on 02-07-2024 Sodium [Moles/Vol] 131 mmol/L Low 136-145 [facility] Total proteinOrdered By: Dione Duran on 02-07-2024 Protein [Mass/Vol] 8.0 g/dL 6.4-8.2 [facility] Tropinin I.cardiac panel Hig h sensitivity methodOrdered By: Ildefonso Duran on 02-07-2024 Troponin I High Sensitivity < 3 pg/mL Low 3.0-54.[address] [facility] Comment on above: Please Note: New Saira t Units and Gender Specific Reference Ranges. For more information see Policy Stat Procedure [place] High Sensitivity Troponin (TNIH) and attachments. White blood cell (WBC) count Ordered By: Ildefonso Duran on 02-07-2024 WBC (Bld) [#/Vol] 13.1 10*3/uL High 4.4-11.[address] [facility] Internal Medicine Office Vis iton 01-25-2024 Internal Medicine Office Visit Normal [facility] Urine Cultureon 01-13-2024 URC Presumptive Lactobac illus sp. [place] Count 25,000-50,[address] [facility] Comment on above: Performed By: #### M 100.2200 ####[facility] [address] [place], [address] CBC W/Diff, Automatedon Absolute Lymph 2.48 X10 3/uL Normal 0.83-4.[address] [facility] Comment on above: Performed By: #### L 700.8000, L100.0100, L500.4050, L501.9520, L501.5200 ####[facility] [address] [place], [address] Absolute Neut 9.3 X10 3/uL High 2.0-7.[address] [facility] Comment on above: Performed By: #### L 700.8000, L100.0100, L500.4050, L501.9520, L501.5200 ####[facility] [address] [place], [address] Basophils/100 WBC (Bld) 0.9 % Normal 0-[address] [facility] Comment on above: Performed By: #### L 700.8000, L100.0100, L500.4050, L501.9520, L501.5200 ####[facility] [address] [place], [address] Eosinophils/100 WBC (Bld) 1.4 % Normal 0-[address] [facility] Comment on above: Performed By: #### L 700.8000, L100.0100, L500.4050, L501.9520, L501.5200 ####[facility] [address] [place], [address] Erythrocyte distribution width (RBC) [Ratio] 13.5 % Normal 11.6-14.[address] [facility] Comment on above: Performed By: #### L 700.8000, L100.0100, L500.4050, L501.9520, L501.5200 ####[facility] [address] [place], [address] Hematocrit (Bld) [Volume fraction] 44.6 % Normal 37-[address] [facility] Comment on above: Performed By: #### L 700.8000, L100.0100, L500.4050, L501.9520, L501.5200 ####[facility] [address] [place], [address] Hemoglobin (Bld) [Mass/Vol] 15.3 g/dL High 12.0-15.[address] [facility] Comment on above: Performed By: #### L 700.8000, L100.0100, L500.4050, L501.9520, L501.5200 ####[facility] [address] [place], [address] IG% 2.900 High 0.0-0.[address] [facility] Comment on above: Result Comment: IG% - Immature Granulocytes (promyelocytes, myelocytes andmetamyelocytes) > 1% indicates that a LEFT SHIFT is Present. Performed By: #### L 700.8000, L100.0100, L500.4050, L501.9520, L501.5200 ####[facility] [address] [place], [address] Lymphocytes/100 WBC (Bld) 17.8 % Low 19-[address] [facility] Comment on above: Performed By: #### L 700.8000, L100.0100, L500.4050, L501.9520, L501.5200 ####[facility] [address] [place], [address] MCH (RBC) [Entitic mass] 28.3 pg Normal 27.0-32.[address] [facility] Comment on above: Performed By: #### L 700.8000, L100.0100, L500.4050, L501.9520, L501.5200 ####[facility] [address] [place], [address] MCHC (RBC) [Mass/Vol] 34.3 g/dL Normal 32-36 [facility] Comment on above: Performed By: #### L 700.8000, L100.0100, L500.4050, L501.9520, L501.5200 ####[facility] [address] [place], [address] MCV (RBC) [Entitic vol] 82.6 fL Normal 81-[address] [facility] Comment on above: Performed By: #### L 700.8000, L100.0100, L500.4050, L501.9520, L501.5200 ####[facility] [address] [place], [address] Monocytes/100 WBC (Bld) 10.2 % High 0-[address] [facility] Comment on above: Performed By: #### L 700.8000, L100.0100, L500.4050, L501.9520, L501.5200 ####[facility] [address] [place], [address] Neutrophils/100 WBC (Bld) 66.8 % Normal 47-[address] [facility] Comment on above: Performed By: #### L 700.8000, L100.0100, L500.4050, L501.9520, L501.5200 ####[facility] [address] [place], [address] Nucleated RBC (Bld) [#/Vol] 0 10*3/uL Normal 0-[address] [facility] Comment on above: Performed By: #### L 700.8000, L100.0100, L500.4050, L501.9520, L501.5200 ####[facility] [address] [place], [address] Platelet mean volume (Bld) [Entitic vol] 8.7 fL Normal 6.2-12.[address] [facility] Comment on above: Performed By: #### L 700.8000, L100.0100, L500.4050, L501.9520, L501.5200 ####[facility] [address] [place], [address] Platelets (Bld) [#/Vol] 418 10*3/uL Normal 150-[address] [facility] Comment on above: Performed By: #### L 700.8000, L100.0100, L500.4050, L501.9520, L501.5200 ####[facility] [address] [place], [address] RBC (Bld) [#/Vol] 5.40 10*6/uL Normal 4.2-5.[address] [facility] Comment on above: Performed By: #### L 700.8000, L100.0100, L500.4050, L501.9520, L501.5200 ####[facility] [address] [place], [address] RDW SD 40.4 fl Normal 35.1-43.[address] [facility] Comment on above: Performed By: #### L 700.8000, L100.0100, L500.4050, L501.9520, L501.5200 ####[facility] [address] [place], [address] WBC (Bld) [#/Vol] 13.9 10*3/uL High 4.4-11.[address] [facility] Comment on above: Performed By: #### L 700.8000, L100.0100, L500.4050, L501.9520, L501.5200 ####[facility] [address] [place], [address] Comprehensive Metabolic Prof ilon 01-11-2024 Albumin [Mass/Vol] 3.8 g/dL Normal 3.2-5.0 [facility] Comment on above: Performed By: #### L 700.8000, L100.0100, L500.4050, L501.9520, L501.5200 ####[facility] [address] [place], [address] Albumin/Globulin [Mass ratio] 1.0 {ratio} Normal 0.9-2.[address] [facility] Comment on above: Performed By: #### L 700.8000, L100.0100, L500.4050, L501.9520, L501.5200 ####[facility] [address] [place], [address] ALK P 113 U/L Normal 45-[address] [facility] Comment on above: Performed By: #### L 700.8000, L100.0100, L500.4050, L501.9520, L501.5200 ####[facility] [address] [place], [address] ALT [Catalytic activity/Vol] 37 U/L Normal 13-[address] [facility] Comment on above: Performed By: #### L 700.8000, L100.0100, L500.4050, L501.9520, L501.5200 ####[facility] [address] [place], [address] AST [Catalytic activity/Vol] 31 U/L Normal 15-[address] [facility] Comment on above: Performed By: #### L 700.8000, L100.0100, L500.4050, L501.9520, L501.5200 ####[facility] [address] [place], [address] Bilirubin [Mass/Vol] 0.50 mg/dL Normal 0.20-1.00 [facility] Comment on above: Result Comment: For patients on eltrombopag therapy, use of Dimension [place] TBIL is not recommended. Performed By: #### L 700.8000, L100.0100, L500.4050, L501.9520, L501.5200 ####[facility] [address] [place], [address] BUN/CRE 11.5 RATIO Normal 10-[address] [facility] Comment on above: Performed By: #### L 700.8000, L100.0100, L500.4050, L501.9520, L501.5200 ####[facility] [address] [place], [address] CA,Total 9.1 mg/dL Normal 8.5-10.[address] [facility] Comment on above: Performed By: #### L 700.8000, L100.0100, L500.4050, L501.9520, L501.5200 ####[facility] [address] [place], [address] Chloride [Moles/Vol] 91 mmol/L Low 98-107 [facility] Comment on above: Performed By: #### L 700.8000, L100.0100, L500.4050, L501.9520, L501.5200 ####[facility] [address] [place], [address] CO2 [Moles/Vol] 29.0 mmol/L Normal 21.0-32.[address] [facility] Comment on above: Performed By: #### L 700.8000, L100.0100, L500.4050, L501.9520, L501.5200 ####[facility] [address] [place], [address] Creatinine [Mass/Vol] 1.31 mg/dL High 0.55-1.02 [facility] Comment on above: Result Comment: The validity of the calculated GFR GFRAA in patients over70 years has not been determined. Clinical correlation isessential. Performed By: #### L 700.8000, L100.0100, L500.4050, L501.9520, L501.5200 ####[facility] [address] [place], [address] ECRCL 35.03 ml/min Normal [facility] Comment on above: Performed By: #### L 700.8000, L100.0100, L500.4050, L501.9520, L501.5200 ####[facility] [address] [place], [address] EST GFR - AA 59 mL/min Low >[address] [facility] Comment on above: Result Comment: Afri can Trinidadian GFR Calc Performed By: #### L 700.8000, L100.0100, L500.4050, L501.9520, L501.5200 ####[facility] [address] [place], [address] GAP 11 Normal 5-[address] [facility] Comment on above: Performed By: #### L 700.8000, L100.0100, L500.4050, L501.9520, L501.5200 ####[facility] [address] [place], [address] GFR/1.73 sq M.predicted among non-blacks MDRD (S/P/Bld) [Vol rate/Area] 49 mL/min/{1.73_m2} Low >[address] [facility] Comment on above: Result Comment: Non- GFR Calc Performed By: #### L 700.8000, L100.0100, L500.4050, L501.9520, L501.5200 ####[facility] [address] [place], [address] Globulin (S) [Mass/Vol] 4.0 g/dL Normal 2.2-4.[address] [facility] Comment on above: Performed By: #### L 700.8000, L100.0100, L500.4050, L501.9520, L501.5200 ####[facility] [address] [place], [address] Glucose [Mass/Vol] 111 mg/dL High 74-106 [facility] Comment on above: Result Comment: Fast ing Glucose result from 100 to 125 mg/dLsuggests IMPAIRED HOMEOSTASIS per A.D.A. criteria. Performed By: #### L 700.8000, L100.0100, L500.4050, L501.9520, L501.5200 ####[facility] [address] [place], [address] Potassium [Moles/Vol] 3.8 mmol/L Normal 3.5-5.1 [facility] Comment on above: Performed By: #### L 700.8000, L100.0100, L500.4050, L501.9520, L501.5200 ####[facility] [address] [place], [address] Sodium [Moles/Vol] 131 mmol/L Low 136-145 [facility] Comment on above: Performed By: #### L 700.8000, L100.0100, L500.4050, L501.9520, L501.5200 ####[facility] [address] [place], [address] T PROT 7.8 g/dL Normal 6.4-8.[address] [facility] Comment on above: Performed By: #### L 700.8000, L100.0100, L500.4050, L501.9520, L501.5200 ####[facility] [address] [place], [address] Urea nitrogen [Mass/Vol] 15 mg/dL Normal 7-[address] [facility] Comment on above: Performed By: #### L 700.8000, L100.0100, L500.4050, L501.9520, L501.5200 ####[facility] [address] [place], [address] Emergency Department Summary on 01-11-2024 Emergency Department Summary Normal [facility] Magnesiumon 01-11-2024 Magnesium [Mass/Vol] 1.8 mg/dL Normal 1.6-2.6 [facility] Comment on above: Performed By: #### L 700.8000, L100.0100, L500.4050, L501.9520, L501.5200 ####[facility] [address] [place], [address] Thyroid Stim Hormone (TSH)on 01-11-2024 TSH 4.760 uIU/mL High 0.358-3.[address] [facility] Comment on above: Performed By: #### L 700.8000, L100.0100, L500.4050, L501.9520, L501.5200 ####[facility] [address] [place], [address] Urinalysis, Completeon 01-10 BACTERIA 1+ /hpf Normal None Seen [facility] Comment on above: Order Comment: COLLE CTOR TO SPECIFY Performed By: #### L 400.0001 ####[facility] [address] [place], [address] EPI,SQUAMOUS 0-5 SEEN Normal 5-[address] [facility] Comment on above: Order Comment: COLLE CTOR TO SPECIFY Performed By: #### L 400.0001 ####[facility] [address] [place], [address] RBC 0-5 SEEN Normal 0-[address] [facility] Comment on above: Order Comment: COLLE CTOR TO SPECIFY Performed By: #### L 400.0001 ####[facility] [address] [place], [address] WBC 0-5 SEEN Normal 0-[address] [facility] Comment on above: Order Comment: COLLE CTOR TO SPECIFY Performed By: #### L 400.0001 ####[facility] [address] [place], [address] Mucus Ql (Urine sed) 0 SEEN Normal [facility] Comment on above: Order Comment: COLLE CTOR TO SPECIFY Performed By: #### L 400.0001 ####[facility] [address] [place], [address] hCG Titer Quant., Serumon HCG QUANT. < 1 Normal 1-[address] [facility] Comment on above: Result Comment: hCG levels with Gestational AgeGestational Age hCG mIU/mL (IU/L)0.2 - 1 week 5 - 501-2 weeks 50 - 5002-3 weeks 100 - 16773-2 weeks 500 - 765102-8 weeks 1000 - 895733-1 weeks 80169 - 100,0006-8 weeks 25572 - 200,0002-3 months 94845 - 100,000 Performed By: #### L 700.8000, L100.0100, L500.4050, L501.9520, L501.5200 ####[facility] [address] [place], [address] T3 Reverseon 11-13-2023 T3 REVERSE 28.8 ng/dL High 9.2-24.[address] [facility] Comment on above: Order Comment: Test( s) 667520-Lacmvqy T3, Serumwas developed and its performance characteristicsdetermined by [employer]. It has not been cleared or approvedby the Food and Drug Administration.N Result Comment: Perf ormed at: - [address] [id number] Director: Bettina Jimenez MD, Phone: [phone] Performed By: #### L 503.0105, L503.6075, L501.5200, L500.4100, L503.6150, L501.9520, L100.0100, L506.0400, L500.4050, L3300.7100, L503.6550 ####[facility] [address] [place], [address] US Pelvison 11-13-2023 Indication ovarian cysts Impression [...] Read By: Aleta Veloz M.D. MATERNAL MEDICINE [facility] US Pelvison 11-09-2023 Radiology Study observation (narrative) [facility] CNOVon 11-08-2023 CNOV Office Visit (OBGYWM ) PHILIPPE RG ([id number]) 1985 F Date Time Provider Department 11/08/23 3:00 PM PHILIPPE WALLACE During your visit today, we recorded the following information about you: Pulse Respiration Blood pressure Weight 106/minute 12/minute 80/54 38.2 kg Height Last Period 1.448 m 10/25/23 Philippe Wallace APRN.DETAIL SUPERVISOR 11/08/2023 4:17 PM Signed Vacuum Filter Operator offered: Patient declines. Philippennia Rg is a 37 year old female who presents for problem visit follow up from transvaginal ultrasound done at primary care, [facility]. HPI: Went to ER as she [...] Ectopic0 Multiple0 Live Births0 Comment: Surrogate-1 child Lining Inserter History LMP: 05/28/2023, Having periods Age at Menarche: Age at First : Age at Menopause: Lining Inserter History Comments: Sexual Activity: Yes; Male Contraception: [...] Grandfather mul (more content not included)... Normal [facility] Thyroidon 11-08-2023 Thyroid Normal [facility] CBC W/Diff, Automatedon 10-11 Absolute Lymph 2.64 X10 3/uL Normal 0.83-4.[address] [facility] Comment on above: Performed By: #### L 503.0105, L503.6075, L501.5200, L500.4100, L503.6150, L501.9520, L100.0100, L506.0400, L500.4050, L3300.7100, L503.6550 ####[facility] [address] [place], [place], [phone]) Absolute Neut 9.7 X10 3/uL High 2.0-7.[address] [facility] Comment on above: Performed By: #### L 503.0105, L503.6075, L501.5200, L500.4100, L503.6150, L501.9520, L100.0100, L506.0400, L500.4050, L3300.7100, L503.6550 ####[facility] [address] [place], [place], [phone]) Basophils/100 WBC (Bld) 1.2 % High 0-[address] [facility] Comment on above: Performed By: #### L 503.0105, L503.6075, L501.5200, L500.4100, L503.6150, L501.9520, L100.0100, L506.0400, L500.4050, L3300.7100, L503.6550 ####[facility] [address] [place], [place], [phone](970) Eosinophils/100 WBC (Bld) 1.7 % Normal 0-[address] [facility] Comment on above: Performed By: #### L 503.0105, L503.6075, L501.5200, L500.4100, L503.6150, L501.9520, L100.0100, L506.0400, L500.4050, L3300.7100, L503.6550 ####[facility] [address] [place], [place], [phone](207) Erythrocyte distribution width (RBC) [Ratio] 13.4 % Normal 11.6-14.[address] [facility] Comment on above: Performed By: #### L 503.0105, L503.6075, L501.5200, L500.4100, L503.6150, L501.9520, L100.0100, L506.0400, L500.4050, L3300.7100, L503.6550 ####[facility] [address] [place], [address] Hematocrit (Bld) [Volume fraction] 47.3 % High 37-[address] [facility] Comment on above: Performed By: #### L 503.0105, L503.6075, L501.5200, L500.4100, L503.6150, L501.9520, L100.0100, L506.0400, L500.4050, L3300.7100, L503.6550 ####[facility] [address] [facility] [place], [address] Hemoglobin (Bld) [Mass/Vol] 15.6 g/dL High 12.0-15.[address] [facility] Comment on above: Performed By: #### L 503.0105, L503.6075, L501.5200, L500.4100, L503.6150, L501.9520, L100.0100, L506.0400, L500.4050, L3300.7100, L503.6550 ####[facility] [address] [place], [address] IG% 3.200 High 0.0-0.[address] [facility] Comment on above: Result Comment: IG% - Immature Granulocytes (promyelocytes, myelocytes andmetamyelocytes) > 1% indicates that a LEFT SHIFT is Present. Performed By: #### L 503.0105, L503.6075, L501.5200, L500.4100, L503.6150, L501.9520, L100.0100, L506.0400, L500.4050, L3300.7100, L503.6550 ####[facility] [address] [place], [address] Lymphocytes/100 WBC (Bld) 18.1 % Low 19-[address] [facility] Comment on above: Performed By: #### L 503.0105, L503.6075, L501.5200, L500.4100, L503.6150, L501.9520, L100.0100, L506.0400, L500.4050, L3300.7100, L503.6550 ####[facility] [address] [place], [address] MCH (RBC) [Entitic mass] 28.2 pg Normal 27.0-32.[address] [facility] Comment on above: Performed By: #### L 503.0105, L503.6075, L501.5200, L500.4100, L503.6150, L501.9520, L100.0100, L506.0400, L500.4050, L3300.7100, L503.6550 ####[facility] [address] [place], [address] MCHC (RBC) [Mass/Vol] 33.0 g/dL Normal 32-36 [facility] Comment on above: Performed By: #### L 503.0105, L503.6075, L501.5200, L500.4100, L503.6150, L501.9520, L100.0100, L506.0400, L500.4050, L3300.7100, L503.6550 ####[facility] [address] [place], [address] MCV (RBC) [Entitic vol] 85.5 fL Normal 81-[address] [facility] Comment on above: Performed By: #### L 503.0105, L503.6075, L501.5200, L500.4100, L503.6150, L501.9520, L100.0100, L506.0400, L500.4050, L3300.7100, L503.6550 ####[facility] [address] [place], [address](236) Monocytes/100 WBC (Bld) 9.6 % Normal 0-[address] [facility] Comment on above: Performed By: #### L 503.0105, L503.6075, L501.5200, L500.4100, L503.6150, L501.9520, L100.0100, L506.0400, L500.4050, L3300.7100, L503.6550 ####[facility] [address] [place], [address](240) Neutrophils/100 WBC (Bld) 66.2 % Normal 47-[address] [facility] Comment on above: Performed By: #### L 503.0105, L503.6075, L501.5200, L500.4100, L503.6150, L501.9520, L100.0100, L506.0400, L500.4050, L3300.7100, L503.6550 ####[facility] [address] [facility] [place], [address](027) Nucleated RBC (Bld) [#/Vol] 0 10*3/uL Normal 0-[address] [facility] Comment on above: Performed By: #### L 503.0105, L503.6075, L501.5200, L500.4100, L503.6150, L501.9520, L100.0100, L506.0400, L500.4050, L3300.7100, L503.6550 ####[facility] [address] [facility] [place], [phone] Platelet mean volume (Bld) [Entitic vol] 9.4 fL Normal 6.2-12.[address] [facility] Comment on above: Performed By: #### L 503.0105, L503.6075, L501.5200, L500.4100, L503.6150, L501.9520, L100.0100, L506.0400, L500.4050, L3300.7100, L503.6550 ####[facility] [address] [place], [address] Platelets (Bld) [#/Vol] 439 10*3/uL Normal 150-[address] [facility] Comment on above: Performed By: #### L 503.0105, L503.6075, L501.5200, L500.4100, L503.6150, L501.9520, L100.0100, L506.0400, L500.4050, L3300.7100, L503.6550 ####[facility] [address] [place], [address] RBC (Bld) [#/Vol] 5.53 10*6/uL High 4.2-5.[address] [facility] Comment on above: Performed By: #### L 503.0105, L503.6075, L501.5200, L500.4100, L503.6150, L501.9520, L100.0100, L506.0400, L500.4050, L3300.7100, L503.6550 ####[facility] [address] [place], [address] RDW SD 41.3 fl Normal 35.1-43.[address] [facility] Comment on above: Performed By: #### L 503.0105, L503.6075, L501.5200, L500.4100, L503.6150, L501.9520, L100.0100, L506.0400, L500.4050, L3300.7100, L503.6550 ####[facility] [address] [place], [address] WBC (Bld) [#/Vol] 14.6 10*3/uL High 4.4-11.[address] [facility] Comment on above: Performed By: #### L 503.0105, L503.6075, L501.5200, L500.4100, L503.6150, L501.9520, L100.0100, L506.0400, L500.4050, L3300.7100, L503.6550 ####[facility] [address] [place], [address] Comprehensive Metabolic Prof [facility] 11-06-2023 Albumin [Mass/Vol] 3.5 g/dL Normal 3.2-5.0 [facility] Comment on above: Performed By: #### L 503.0105, L503.6075, L501.5200, L500.4100, L503.6150, L501.9520, L100.0100, L506.0400, L500.4050, L3300.7100, L503.6550 ####[facility] [address] [place], [address] Albumin/Globulin [Mass ratio] 0.7 {ratio} Low 0.9-2.[address] [facility] Comment on above: Performed By: #### L 503.0105, L503.6075, L501.5200, L500.4100, L503.6150, L501.9520, L100.0100, L506.0400, L500.4050, L3300.7100, L503.6550 ####[facility] [address] [place], [address] ALK P 114 U/L Normal 45-[address] [facility] Comment on above: Performed By: #### L 503.0105, L503.6075, L501.5200, L500.4100, L503.6150, L501.9520, L100.0100, L506.0400, L500.4050, L3300.7100, L503.6550 ####[facility] [address] [place], [address] ALT [Catalytic activity/Vol] 40 U/L Normal 13-[address] [facility] Comment on above: Performed By: #### L 503.0105, L503.6075, L501.5200, L500.4100, L503.6150, L501.9520, L100.0100, L506.0400, L500.4050, L3300.7100, L503.6550 ####[facility] [address] [place], [place], [phone] AST [Catalytic activity/Vol] 32 U/L Normal 15-[address] [facility] Comment on above: Performed By: #### L 503.0105, L503.6075, L501.5200, L500.4100, L503.6150, L501.9520, L100.0100, L506.0400, L500.4050, L3300.7100, L503.6550 ####[facility] [address] [place], [address] Bilirubin [Mass/Vol] 0.50 mg/dL Normal 0.20-1.00 [facility] Comment on above: Result Comment: For patients on eltrombopag therapy, use of Dimension Saranac TBIL is not recommended. Performed By: #### L 503.0105, L503.6075, L501.5200, L500.4100, L503.6150, L501.9520, L100.0100, L506.0400, L500.4050, L3300.7100, L503.6550 ####[facility] [address] [place], [address] BUN/CRE 14.3 RATIO Normal 10-[address] [facility] Comment on above: Performed By: #### L 503.0105, L503.6075, L501.5200, L500.4100, L503.6150, L501.9520, L100.0100, L506.0400, L500.4050, L3300.7100, L503.6550 ####[facility] [address] [place], [address] CA,Total 9.4 mg/dL Normal 8.5-10.[address] [facility] Comment on above: Performed By: #### L 503.0105, L503.6075, L501.5200, L500.4100, L503.6150, L501.9520, L100.0100, L506.0400, L500.4050, L3300.7100, L503.6550 ####[facility] [address] [place], [address] Chloride [Moles/Vol] 96 mmol/L Low 98-107 [facility] Comment on above: Performed By: #### L 503.0105, L503.6075, L501.5200, L500.4100, L503.6150, L501.9520, L100.0100, L506.0400, L500.4050, L3300.7100, L503.6550 ####[facility] [address] [place], [address] CO2 [Moles/Vol] 25.0 mmol/L Normal 21.0-32.[address] [facility] Comment on above: Performed By: #### L 503.0105, L503.6075, L501.5200, L500.4100, L503.6150, L501.9520, L100.0100, L506.0400, L500.4050, L3300.7100, L503.6550 ####[facility] [address] [place], [address] Creatinine [Mass/Vol] 1.68 mg/dL High 0.55-1.02 [facility] Comment on above: Result Comment: The validity of the calculated GFR GFRAA in patients over70 years has not been determined. Clinical correlation isessential. Performed By: #### L 503.0105, L503.6075, L501.5200, L500.4100, L503.6150, L501.9520, L100.0100, L506.0400, L500.4050, L3300.7100, L503.6550 ####[facility] [address] [place], [place], [phone] EST GFR - AA 44 mL/min Low >[address] [facility] Comment on above: Result Comment: Afri can Trinidadian GFR Calc Performed By: #### L 503.0105, L503.6075, L501.5200, L500.4100, L503.6150, L501.9520, L100.0100, L506.0400, L500.4050, L3300.7100, L503.6550 ####[facility] [address] [place], [place], [phone] GAP 11 Normal 5-[address] [facility] Comment on above: Performed By: #### L 503.0105, L503.6075, L501.5200, L500.4100, L503.6150, L501.9520, L100.0100, L506.0400, L500.4050, L3300.7100, L503.6550 ####[facility] [address] [place], [place], [phone]) GFR/1.73 sq M.predicted among non-blacks MDRD (S/P/Bld) [Vol rate/Area] 37 mL/min/{1.73_m2} Low >[address] [facility] Comment on above: Result Comment: Non- GFR Calc Performed By: #### L 503.0105, L503.6075, L501.5200, L500.4100, L503.6150, L501.9520, L100.0100, L506.0400, L500.4050, L3300.7100, L503.6550 ####[facility] [address] [place], [phone] Globulin (S) [Mass/Vol] 4.9 g/dL High 2.2-4.[address] [facility] Comment on above: Performed By: #### L 503.0105, L503.6075, L501.5200, L500.4100, L503.6150, L501.9520, L100.0100, L506.0400, L500.4050, L3300.7100, L503.6550 ####[facility] [address] [place], [address] Glucose [Mass/Vol] 98 mg/dL Normal 74-106 [facility] Comment on above: Performed By: #### L 503.0105, L503.6075, L501.5200, L500.4100, L503.6150, L501.9520, L100.0100, L506.0400, L500.4050, L3300.7100, L503.6550 ####[facility] [address] [place], [place], [phone] Potassium [Moles/Vol] 4.0 mmol/L Normal 3.5-5.1 [facility] Comment on above: Performed By: #### L 503.0105, L503.6075, L501.5200, L500.4100, L503.6150, L501.9520, L100.0100, L506.0400, L500.4050, L3300.7100, L503.6550 ####[facility] [address] [place], [place], [phone] Sodium [Moles/Vol] 132 mmol/L Low 136-145 [facility] Comment on above: Performed By: #### L 503.0105, L503.6075, L501.5200, L500.4100, L503.6150, L501.9520, L100.0100, L506.0400, L500.4050, L3300.7100, L503.6550 ####[facility] [address] [place], [place], [phone] T PROT 8.4 g/dL High 6.4-8.[address] [facility] Comment on above: Performed By: #### L 503.0105, L503.6075, L501.5200, L500.4100, L503.6150, L501.9520, L100.0100, L506.0400, L500.4050, L3300.7100, L503.6550 ####[facility] [address] [place], [place], [address] Urea nitrogen [Mass/Vol] 24 mg/dL High 7-[address] [facility] Comment on above: Performed By: #### L 503.0105, L503.6075, L501.5200, L500.4100, L503.6150, L501.9520, L100.0100, L506.0400, L500.4050, L3300.7100, L503.6550 ####[facility] [address] [place], [place], [phone] Ferritinon 11-06-2023 Ferritin [Mass/Vol] 137 ng/mL Normal 8-[address] [facility] Comment on above: Performed By: #### L 503.0105, L503.6075, L501.5200, L500.4100, L503.6150, L501.9520, L100.0100, L506.0400, L500.4050, L3300.7100, L503.6550 ####[facility] [address] [place], [place], [phone] Internal Medicine Office Vis iton 11-06-2023 Internal Medicine Office Visit Normal [facility] Ironon 11-06-2023 Iron [Mass/Vol] 68 ug/dL Normal 50-[address] [facility] Comment on above: Performed By: #### L 503.0105, L503.6075, L501.5200, L500.4100, L503.6150, L501.9520, L100.0100, L506.0400, L500.4050, L3300.7100, L503.6550 ####[facility] [address] [place], [place], [phone] Iron Binding Capacity,Totalo n 11-06-2023 TIBC 414 ug/dL Normal 250-[address] [facility] Comment on above: Performed By: #### L 503.0105, L503.6075, L501.5200, L500.4100, L503.6150, L501.9520, L100.0100, L506.0400, L500.4050, L3300.7100, L503.6550 ####[facility] [address] [place], [place], [phone] Lipid Profileon 11-06-2023 Cholesterol [Mass/Vol] 227 mg/dL High 200 [facility] Comment on above: Result Comment: <200 mg/dL Desirable 200-240 mg/dL Borderline >240 mg/dL High Risk Performed By: #### L 503.0105, L503.6075, L501.5200, L500.4100, L503.6150, L501.9520, L100.0100, L506.0400, L500.4050, L3300.7100, L503.6550 ####[facility] [address] [place], [place], [phone] Cholesterol in HDL [Mass/Vol] 82 mg/dL Normal [facility] Comment on above: Result Comment: The drugs N-Acetylcysteine and Metamizole may falselydepress this assay. Reference Range HDL <40 mg/dL Low HDL Cholesterol HDL >or= 60 mg/dL High HDL Cholesterol Performed By: #### L 503.0105, L503.6075, L501.5200, L500.4100, L503.6150, L501.9520, L100.0100, L506.0400, L500.4050, L3300.7100, L503.6550 ####[facility] [address] [place], [place], [phone] Cholesterol in LDL [Mass/Vol] 99 mg/dL Normal 0-[address] [facility] Comment on above: Performed By: #### L 503.0105, L503.6075, L501.5200, L500.4100, L503.6150, L501.9520, L100.0100, L506.0400, L500.4050, L3300.7100, L503.6550 ####[facility] [address] [place], [place], [phone] Cholesterol in VLDL [Mass/Vol] 46 mg/dL High 5-[address] [facility] Comment on above: Performed By: #### L 503.0105, L503.6075, L501.5200, L500.4100, L503.6150, L501.9520, L100.0100, L506.0400, L500.4050, L3300.7100, L503.6550 ####[facility] [address] [place], [place], [phone] Triglyceride [Mass/Vol] 232 mg/dL High [facility] Comment on above: Result Comment: The drugs N-Acetylcysteine and Metamizole may falselydepress this assay.Serum Triglycerides Reference Interval Normal <150 mg/dL Borderline high 150 - 199 mg/dL High 200 - 499 mg/dL Very High > or = 500 mg/dL Performed By: #### L 503.0105, L503.6075, L501.5200, L500.4100, L503.6150, L501.9520, L100.0100, L506.0400, L500.4050, L3300.7100, L503.6550 ####[facility] [address] [place], [place], [phone] Magnesiumon 11-06-2023 Magnesium [Mass/Vol] 2.3 mg/dL Normal 1.6-2.6 [facility] Comment on above: Performed By: #### L 503.0105, L503.6075, L501.5200, L500.4100, L503.6150, L501.9520, L100.0100, L506.0400, L500.4050, L3300.7100, L503.6550 ####[facility] [address] [place], [place], [phone] Pelvic w/ Transvaginalon Pelvic w/ Transvaginal Normal [facility] T4 Free Directon 11-06-2023 T4 FREE DIRECT 1.07 ng/dL Normal 0.76-1.[address] [facility] Comment on above: Performed By: #### L 503.0105, L503.6075, L501.5200, L500.4100, L503.6150, L501.9520, L100.0100, L506.0400, L500.4050, L3300.7100, L503.6550 ####[facility] [address] [place], [place], [phone] Thyroid Stim Hormone (TSH)on 11-06-2023 TSH 2.360 uIU/mL Normal 0.358-3.[address] [facility] Comment on above: Performed By: #### L 503.0105, L503.6075, L501.5200, L500.4100, L503.6150, L501.9520, L100.0100, L506.0400, L500.4050, L3300.7100, L503.6550 ####[facility] [address] [place], [place], [phone] Vitamin B12on 11-06-2023 Cobalamin (Vitamin B12) [Mass/Vol] 588 pg/mL Normal 211-[address] [facility] Comment on above: Performed By: #### L 503.0105, L503.6075, L501.5200, L500.4100, L503.6150, L501.9520, L100.0100, L506.0400, L500.4050, L3300.7100, L503.6550 ####[facility] [address] [place], [address] Urine Cultureon 10-19-2023 URC Mixed Gram Positive Organisms [place] Count 25,000-50,000 MIXC Mixed contaminants. Submit a new specimen if indicated. Normal [facility] Comment on above: Performed By: #### M 100.2200 ####[facility] [address] [place], [address] Abdomen/Pelvis without Conto n 10-17-2023 Abdomen/Pelvis without Cont Normal [facility] Basic Metabolic Profile (BMP )on 10-17-2023 BUN/CRE 14.6 RATIO Normal 10-[address] [facility] Comment on above: Performed By: #### L 500.3400, L500.2500, L501.2450 ####[facility] [address] [place], [address] CA,Total 9.8 mg/dL Normal 8.5-10.[address] [facility] Comment on above: Performed By: #### L 500.3400, L500.2500, L501.2450 ####[facility] [address] [place], [address] Chloride [Moles/Vol] 90 mmol/L Low 98-107 [facility] Comment on above: Performed By: #### L 500.3400, L500.2500, L501.2450 ####[facility] [address] [place], [address] CO2 [Moles/Vol] 25.0 mmol/L Normal 21.0-32.[address] [facility] Comment on above: Performed By: #### L 500.3400, L500.2500, L501.2450 ####[facility] [address] [place], [address] Creatinine [Mass/Vol] 2.53 mg/dL High 0.55-1.02 [facility] Comment on above: Result Comment: The validity of the calculated GFR GFRAA in patients over70 years has not been determined. Clinical correlation isessential. Performed By: #### L 500.3400, L500.2500, L501.2450 ####[facility] [address] [place], [address] ECRCL 18.78 ml/min Normal [facility] Comment on above: Performed By: #### L 500.3400, L500.2500, L501.2450 ####[facility] [address] [place], [address] EST GFR - AA 28 mL/min Low >[address] [facility] Comment on above: Result Comment: Afri can Trinid[place] GFR Calc Performed By: #### L 500.3400, L500.2500, L501.2450 ####[facility] [address] [place], [address] GAP 9 Normal 5-[address] [facility] Comment on above: Performed By: #### L 500.3400, L500.2500, L501.2450 ####[facility] [address] [place], [address] GFR/1.73 sq M.predicted among non-blacks MDRD (S/P/Bld) [Vol rate/Area] 23 mL/min/{1.73_m2} Low >[address] [facility] Comment on above: Result Comment: Non- GFR Calc Performed By: #### L 500.3400, L500.2500, L501.2450 ####[facility] [address] [place], [address] Glucose [Mass/Vol] 119 mg/dL High 74-106 [facility] Comment on above: Result Comment: Fast ing Glucose result from 100 to 125 mg/dLsuggests IMPAIRED HOMEOSTASIS per A.D.A. criteria. Performed By: #### L 500.3400, L500.2500, L501.2450 ####[facility] [address] [place], [address] Potassium [Moles/Vol] 4.2 mmol/L Normal 3.5-5.1 [facility] Comment on above: Performed By: #### L 500.3400, L500.2500, L501.2450 ####[facility] [address] [place], [address] Sodium [Moles/Vol] 124 mmol/L Low 136-145 [facility] Comment on above: Performed By: #### L 500.3400, L500.2500, L501.2450 ####[facility] [address] [place], [address] Urea nitrogen [Mass/Vol] 37 mg/dL High 7-[address] [facility] Comment on above: Performed By: #### L 500.3400, L500.2500, L501.2450 ####[facility] [address] [place], [address] CBC W/Diff, Automatedon 08-0 PATH REV Reviewed Normal [facility] Comment on above: Result Comment: Neut rophilic leukocytosis with left shift.PolycythemiaThrombocytosis.Clinical correlation necessary.Herminio Kelly M.D. 10/17/23 AMENDED REPORT 10/17/23 1339 PATH REV previously reported as: July Performed By: #### L 100.0100 ####[facility] [address] [place], [address] CRPon 10-17-2023 C-REACTIVE PROT 12.30 mg/L High 0.0-3.[address] [facility] Comment on above: Result Comment: C-Re active Protein (CRP) provides useful information for thediagnosis, therapy and monitoring of inflammatory processesand associated diseases. For the evaluation of Relative Riskfor Cardiovascular Disease, a High Sensitivity CRP (HSCRP)should be ordered. Performed By: #### L 101.9900, L501.6710 ####[facility] [address] [place], [address] Emergency Department Summary on 10-17-2023 Emergency Department Summary Normal [facility] Erythrocyte Sed Rateon 10-16 SED RATE 18 mm/hr Normal 0-[address] [facility] Comment on above: Performed By: #### L 101.9900, L501.6710 ####[facility] [address] [place], [address] Lactic Acidon 10-17-2023 Lactate [Moles/Vol] 1.0 mmol/L Normal 0.4-1.[address] [facility] Comment on above: Order Comment: Y Performed By: #### L 503.6005 ####[facility] [address] [place], [address] Lipaseon 10-17-2023 Lipase [Catalytic activity/Vol] 194 U/L High 13-[address] [facility] Comment on above: Result Comment: Beatriz person note:LIPASE revised reference range effective 22.New Lipase methodology. Expected to produce lower valuesthan the previous assay method.NEW Reference Range: 13 - 75 U/L Performed By: #### L 500.3400, L500.2500, L501.2450 ####[facility] [address] [place], [address] Liver Profileon 10-17-2023 Albumin [Mass/Vol] 3.9 g/dL Normal 3.2-5.0 [facility] Comment on above: Performed By: #### L 500.3400, L500.2500, L501.2450 ####[facility] [address] [place], [address] ALK P 130 U/L High 45-[address] [facility] Comment on above: Performed By: #### L 500.3400, L500.2500, L501.2450 ####[facility] [address] [place], [address] ALT [Catalytic activity/Vol] 42 U/L Normal 13-[address] [facility] Comment on above: Performed By: #### L 500.3400, L500.2500, L501.2450 ####[facility] [address] [place], [address] AST [Catalytic activity/Vol] 34 U/L Normal 15-[address] [facility] Comment on above: Performed By: #### L 500.3400, L500.2500, L501.2450 ####[facility] [address] [place], [address] Bilirubin [Mass/Vol] 0.70 mg/dL Normal 0.20-1.00 [facility] Comment on above: Result Comment: For patients on eltrombopag therapy, use of Dimension Saranac TBIL is not recommended. Performed By: #### L 500.3400, L500.2500, L501.2450 ####[facility] [address] [place], [address] Bilirubin.direct [Mass/Vol] 0.30 mg/dL Normal 0.00-0.[address] [facility] Comment on above: Performed By: #### L 500.3400, L500.2500, L501.2450 ####[facility] [address] [place], [address] Globulin (S) [Mass/Vol] 4.9 g/dL High 2.2-4.[address] [facility] Comment on above: Performed By: #### L 500.3400, L500.2500, L501.2450 ####[facility] [address] [place], [address] T PROT 8.8 g/dL High 6.4-8.[address] [facility] Comment on above: Performed By: #### L 500.3400, L500.2500, L501.2450 ####[facility] [address] [place], [address] ,Urineon 10-17-2023 Beta HCG ( test) Ql (U) Negative Normal [facility] Comment on above: Order Comment: CLEAN CATCH Result Comment: Very dilute urine specimens, as indicated by a low specificgravity, may not contain abrasives sales representative levels of hCG.If is still suspected, a first morning urinespecimen should be collected 48 hours later and tested. Performed By: #### L 400.7600, L400.0001 ####[facility] [address] [place], [address] Urinalysis, Completeon 10-16 BACTERIA RARE Normal None Seen [facility] Comment on above: Order Comment: CLEAN CATCH Performed By: #### L 400.7600, L400.0001 ####[facility] [address] [place], [address] EPI,SQUAMOUS 5-10 SEEN Normal 5-[address] [facility] Comment on above: Order Comment: CLEAN CATCH Performed By: #### L 400.7600, L400.0001 ####[facility] [address] [place], [address] RBC 5-10 SEEN Normal 0-[address] [facility] Comment on above: Order Comment: CLEAN CATCH Performed By: #### L 400.7600, [id number] ####[facility] [address] [place], [address] WBC 5-10 SEEN Normal 0-[address] [facility] Comment on above: Order Comment: CLEAN CATCH Performed By: #### L 400.7600, [id number] ####[facility] [address] [place], [address] Mucus Ql (Urine sed) 0 SEEN Normal [facility] Comment on above: Order Comment: CLEAN CATCH Performed By: #### L 400.7600, [id number] ####[facility] [address] [place], [address] CBC panel Auto (Bld)on 05-28 Erythrocyte distribution width (RBC) [Ratio] 13.8 % 11.5 - 15.0 % [facility] Hematocrit (Bld) [Volume fraction] 50.8 % High 36.0 - 46.0 % [facility] Hemoglobin (Bld) [Mass/Vol] 16.6 g/dL High 11.5 - 15.5 g/dL [facility] MCH (RBC) [Entitic mass] 28.4 pg 26.0 - 34.0 pg [facility] MCHC (RBC) [Mass/Vol] 32.7 g/dL 30.5 - 36.0 g/dL [facility] MCV (RBC) [Entitic vol] 86.8 fL 80.0 - 100.0 fL [facility] Nucleated RBC (Bld) [#/Vol] <0.01 k/uL [facility] Platelet mean volume (Bld) [Entitic vol] 9.1 fL 9.0 - 12.7 fL [facility] Platelets (Bld) [#/Vol] 432 10*3/uL High 150 - 400 k/uL [facility] RBC (Bld) [#/Vol] 5.85 10*6/uL High 3.90 - 5.20 m/uL [facility] WBC (Bld) [#/Vol] 17.75 10*3/uL High 3.70 - 11.00 k/uL [facility] Comprehensive metabolic 2000 panelon 05-29-2023 Albumin [Mass/Vol] 4.5 g/dL 3.9 - 4.9 g/dL [facility] ALP [Catalytic activity/Vol] 110 U/L 34 - 123 U/L [facility] ALT [Catalytic activity/Vol] 27 U/L 7 - 38 U/L [facility] Anion gap [Moles/Vol] 15 mmol/L 9 - 18 mmol/L [facility] AST [Catalytic activity/Vol] 23 U/L 13 - 35 U/L [facility] Bilirubin [Mass/Vol] 0.3 mg/dL 0.2 - 1 .3 mg/dL [facility] Calcium [Mass/Vol] 9.7 mg/dL 8.5 - 10. 2 mg/dL [facility] Chloride [Moles/Vol] 97 mmol/L 97 - 10 5 mmol/L [facility] [facility] CO2 [Moles/Vol] 22 mmol/L 22 - 30 mmol/L [facility] Creatinine [Mass/Vol] 1.05 mg/dL High 0.58 - 0.96 mg/dL [facility] Estimated Glomerular Filtration Rate 71 mL/min/1.73m >=60 mL/min/1.7 3m [facility] Glucose [Mass/Vol] 103 mg/dL High 74 - 99 mg/dL [facility] Potassium [Moles/Vol] 3.3 mmol/L Low 3.7 - 5.1 mmol/L [facility] Protein [Mass/Vol] 8.2 g/dL High 6.3 - 8.0 g/dL [facility] Sodium [Moles/Vol] 134 mmol/L Low 136 - 144 mmol/L [facility] Urea nitrogen [Mass/Vol] 14 mg/dL 7 - 21 mg/dL [facility] MAGNESIUM BLDon 05-29-2023 Magnesium [Mass/Vol] 1.9 mg/dL 1.7 - 2 .3 mg/dL [facility] VITAMIN D 25 HYDROXYon 05-28 25-hydroxyvitamin D3 [Mass/Vol] 33.9 ng/mL 31.0 - 80.0 ng/mL [facility] UA DIP, URINE (POC)on 2021 BILIRUBIN UA (POCT) Negative Negative [facility] CLARITY UA (POCT) Clear [facility] COLOR UA (POCT) Yellow [facility] GLUCOSE UA (POCT) Negative Negative mg/dL [facility] HEMOGLOBIN/BLOOD UA (POCT) Negative Negative [facility] KETONE UA (POCT) Negative Negative mg/dL [facility] LEUKOCYTES UA (POCT) Trace Abnormal Negative [facility] NITRITE UA (POCT) Negative Negative [facility] PH UA (POCT) 6.5 4.5 - 8.0 [facility] Protein Ql (U) 30 mg/dL Abnormal Negative mg/dL [facility] SPECIFIC GRAVITY UA (POCT) 1.020 1.005 - 1.030 [facility] UROBILINOGEN UA (POCT) 0.2 E.U./dL Bethanie l E.U./dL [facility] Absolute lymphocyte counton 09-07-2021 Lymphocytes Auto (Unsp spec) [#/Vol] 2.08 10*3/uL 0.83-4.[address] [facility] Work Phone: Basophil percentageon 2021 Basophil percentage 0-5 SEEN /hpf 0-5 [facility] Work Phone: [phone] Basophils/100 WBC (Bld) 0.9 % 0-[address] [facility] Work Phone: [phone] Bilirubin [Mass/Vol] 0.60 mg/dL 0.20-1.00 [facility] Work Phone: [phone] Comment on above: For patients on eltr ombopag therapy, use of Dimension [place] TBIL is not recommended. Chloride [Moles/Vol] 96 mmol/L 98-107 [facility] Work Phone: [phone] Eosinophils/100 WBC (Bld) 1.7 % 0-[address] [facility] Work Phone: [phone] Glucose [Mass/Vol] 108 mg/dL 74-106 [facility] Work Phone: Comment on above: Fasting Glucose resu lt from 100 to 125 mg/dL suggests IMPAIRED HOMEOSTASIS per A.D.A. criteria. Neutrophils (Bld) [#/Vol] 5.6 10*3/uL 2.0-7.[address] [facility] Work Phone: [phone] Neutrophils/100 WBC (Bld) 62.4 % 47-[address] [facility] Work Phone: [phone] Potassium [Moles/Vol] 3.9 mmol/L 3.5-5.1 [facility] Work Phone: Comment on above: Moderate Hemolysis, Result may be falsely increased. Protein [Mass/Vol] 8.3 g/dL 6.4-8.2 [facility] Work Phone: [phone] Sodium [Moles/Vol] 131 mmol/L 136-145 [facility] Work Phone: [phone] WBC (Bld) [#/Vol] 9.0 10*3/uL 4.4-11.0 [facility] Work Phone: Bilirubin Test strip Ql (U)o n 09-07-2021 Bilirubin Ql (U) Negative Negative [facility] Work Phone: Blood erythrocytes count (nu mber/volume)on 09-07-2021 RBC (Bld) [#/Vol] 5.78 10*6/uL 4.2-5.[address] [facility] Work Phone: Blood hemoglobin measurement (mass/volume)on 09-07-2021 Hemoglobin (Bld) [Mass/Vol] 16.7 g/dL 12.0-15.[address] [facility] Work Phone: Blood lymphocytes/100 leukoc yteson 09-07-2021 Lymphocytes/100 WBC (Bld) 23.2 % 19-[address] [facility] Work Phone: [phone] Blood monocytes/100 leukocyt eson 09-07-2021 Monocytes/100 WBC (Bld) 10.1 % 0-[address] [facility] Work Phone: Blood platelet mean volumeon 09-07-2021 Platelet mean volume (Bld) [Entitic vol] 9.0 fL 6.2-12.[address] [facility] Work Phone: Determination of erythrocyte mean corpuscular volume (MCV)on 09-07-2021 MCV (RBC) [Entitic vol] 83.6 fL 81-[address] [facility] Work Phone: Hematocrit Auto (Bld) [Volum e fraction]on 09-07-2021 Hematocrit (Bld) [Volume fraction] 48.3 % 37-[address] [facility] Work Phone: Ketones Test strip Ql (U)on 09-07-2021 Ketones Ql (U) Negative Negative [facility] Work Phone: Laboratory - Chemistry and C hemistry - challengeon 09-07-2021 HCG ( test) Ql (U) Negative [facility] Work Phone: Comment on above: Very dilute urine sp ecimens, as indicated by a low specificgravity, may not contain abrasives sales representative levels of hCG. If is still suspected, a first morning urinespecimen should be collected 48 hours later and tested. ALP [Catalytic activity/Vol] 125 U/L 45-117 [facility] Work Phone: [phone] ALT [Catalytic activity/Vol] 36 U/L 13-[address] [facility] Work Phone: CO2 [Moles/Vol] 24.0 mmol/L 21.0-32.[address] [facility] Work Phone: [phone] Globulin (S) [Mass/Vol] 4.5 g/dL 2.2-4.[address] [facility] Work Phone: [phone] Magnesium [Mass/Vol] 2.2 mg/dL 1.6-2.6 [facility] Work Phone: [phone] Comment on above: Moderate Hemolysis, Result may be falsely increased. Urea nitrogen/Creatinine [Mass ratio] 15.2 mg/mg 10-[address] [facility] Work Phone: [phone] Laboratory - Hematology and Cell countson 09-07-2021 Erythrocyte distribution width (RBC) [Entitic vol] 39.3 fL 35.1-43.[address] [facility] Work Phone: [phone] Erythrocyte distribution width (RBC) [Ratio] 12.9 % 11.6-14.[address] [facility] Work Phone: [phone] Immature granulocytes/100 WBC (Bld) 1.700 % 0.0-0.[address] [facility] Work Phone: [phone] Comment on above: IG% - Immature Granu locytes (promyelocytes, myelocytes and metamyelocytes) > 1% indicates that a LEFT SHIFT is Present. MCH (RBC) [Entitic mass] 28.9 pg 27.0-32.[address] [facility] Work Phone: [phone] Nucleated RBC/100 WBC (Bld) [Ratio] 0 % 0-[address] [facility] Work Phone: [phone] MCHC Auto (RBC) [Mass/Vol]on 09-07-2021 MCHC (RBC) [Mass/Vol] 34.6 g/dL 32-36 [facility] Work Phone: [phone] Mucus LM Ql (Urine sed)on Mucus Ql (Urine sed) 0 SEEN /hpf [facility] Work Phone: Nitrite Test strip Ql (U)on 09-07-2021 Nitrite Ql (U) Negative Negative [facility] Work Phone: No Panel Informationon 09-07 D-Dimer Quantitative (PE/DVT) < 0.27 FEU/ug/m 0.27-0.[address] [facility] Work Phone: Comment on above: NORMAL D-Dimer level (<0.50) indicates no DVT or PE. Estimated Creatinine Clearance Calc 35.13 ml/min [facility] Work Phone: Estimated GFR (MDRD) Amer 53 mL/min >[address] [facility] Work Phone: Comment on above: GFR Calc Estimated GFR (MDRD) Non-Af Amer 44 mL/min >[address] [facility] Work Phone: Comment on above: Non- GFR Calc Troponin I High Sensitivity < 3 pg/mL 3.0-54.[address] [facility] Work Phone: Comment on above: Please Note: New Saira t Units and Gender Specific Reference Ranges. For more information see Policy Stat Procedure [place] High Sensitivity Troponin (TNIH) and attachments. Platelets bldon 09-07-2021 Platelets (Bld) [#/Vol] 386 10*3/uL 150-[address] [facility] Work Phone: Protein Test strip Ql (U)on 09-07-2021 Protein Ql (U) 30 mg/dl Negative [facility] Work Phone: Serum or plasma albumin joselyn urement (mass/volume)on 09-07-2021 Albumin [Mass/Vol] 3.8 g/dL 3.2-5.0 [facility] Work Phone: Serum or plasma albumin/glob ulin mass ratioon 09-07-2021 Albumin/Globulin [Mass ratio] 0.8 {ratio} 0.9-2.[address] [facility] Work Phone: Serum or plasma calcium joselyn urement (mass/volume)on 09-07-2021 Calcium [Mass/Vol] 9.5 mg/dL 8.5-10.1 [facility] Work Phone: Serum or plasma creatinine m easurement (mass/volume)on 09-07-2021 Creatinine [Mass/Vol] 1.45 mg/dL 0.55-1.02 [facility] Work Phone: Comment on above: The validity of the calculated GFR & GFRAA in patients over 70 years has not been determined. Clinical correlation is essential. Serum or plasma urea nitroge n measurement (mass/volume)on 09-07-2021 Urea nitrogen [Mass/Vol] 22 mg/dL 7-[address] [facility] Work Phone: Squamous epithelial cells de tection in urine sediment by light microscopyon 09-07-2021 Epithelial cells.squamous LM Ql (Urine sed) 5-10 SEEN /hpf 5-[address] [facility] Work Phone: Thin prep Papanicolaou smear with manual screeningon 09-07-2021 Thin prep Papanicolaou smear with manual screening 40 U/L 15-[address] [facility] Work Phone: Comment on above: Moderate Hemolysis, Result may be falsely increased. Thin prep Papanicolaou smear with manual screening 11 5-[address] [facility] Work Phone: Urine blood detectionon 08-11 RBC Ql (U) 10 /ul Negative [facility] Work Phone: RBC Ql (U) 0 SEEN /hpf 0-[address] [facility] Work Phone: Urine clarityon 09-07-2021 Clarity (U) Clear Clear [facility] Work Phone: Urine color determinationon 09-07-2021 Color (U) Yellow Yellow [facility] Work Phone: Urine glucose detectionon Glucose Ql (U) Normal mg/dl Normal [facility] Work Phone: Urine leukocyte esterase det ection by dipstickon 09-07-2021 Leukocyte esterase Test strip Ql (U) 25 /ul Negative [facility] Work Phone: Urine pHon 09-07-2021 pH (U) 6.0 [pH] 5.0 - 8.[address] [facility] Work Phone: Urine sediment bacteria coun t by microscopy (number/high power field)on 09-07-2021 Bacteria LM.HPF (Urine sed) [#/Area] 1 /[HPF] None Seen [facility] Work Phone: Urine specific gravity measu rementon 09-07-2021 Specific gravity (U) [Rel density] 1.020 1.002-1.[address] [facility] Work Phone: Urobilinogen Auto test strip Ql (U)on 09-07-2021 Urobilinogen Ql (U) Normal mg/dl Normal [facility] Work Phone: CASE MANAGEMon 05-29-2020 CASE MANAGEM HNO ID: [id number] Author: Sherman (Rn) PURA Ryan Service: Care Management Author Type: Registered Nurse Type: Care Mgt Progress Note Filed: 05/29/2020 9:28 AM Note Text: CARE MANAGEMENT DISCHARGE NOTE SERVICE DATE: 05/29/2020 SERVICE TIME: 926 LOS: 0 days Attempted to contact patient prior to discharge no answer. SIGNATURE: Sherman Ryan RN PATIENT NAME: Philippe Rg DATE: May 29, 2020 TIME: 9:27 AM PAGER/CONTACT #: [phone] [facility] PROGRESSon 05-29-2020 PROGRESS HNO ID: [id number] Author: Aditi Yuen DO Service: Endocrine Surgery Author Type: Resident Type: Progress Notes Filed: 05/29/2020 8:17 AM Note Text: ENDOCRINE SURGERY PROGRESS NOTE Philippe Rg [id number] ID: 34 year old female POD#: 1 [...] Unknown) SpO2 98% BMI 21.27 kg/m? 05/28 07 - 05/29 0659 In: 1200 [PO:600; IV:600] [...] home today Rochelle Yuen DO PGY3 Pager: [phone] May 29, 2020 8:16 AM [facility] PROGRESS HNO ID: [id number] Author: Interface Note Service: ? Author Type: ? Type: Progress Notes Filed: 05/29/2020 3:03 AM Note Text: Epic Scheduled Downtime: 05/29/2020 1:00:00 AM to 05/29/2020 2:48:00 AM [facility] ANES POSTPROC EVALon 021 ANES POSTPROC EVAL HNO ID: [id number] Author: Colby Cobb Service: Anesthesiology Author Type: Anesthesiologist Type: Anesthesia Postprocedure Evaluation Filed: 05/28/2020 9:40 AM Note Text: POST ANESTHESIA EVALUATION NOTE : 1985 Procedure Summary Date: 05/28/20 Room / Location: OR / MM OR Anesthesia Start: 710 Anesthesia Stop: 811 [...] May 28, 2020 TIME: 9:40 AM CSN: [id number] [facility] ANES PRE-OPon 05-28-2020 ANES PRE-OP HNO ID: [id number] Author: Colby Cobb Service: Anesthesiology Author Type: [...] kidney disease) stage 3, GFR 30-59 ml/min (HCC) I - PHYSICAL EVALUATION AIRWAY Patient intubated: [...] 0632 Temp 37.4 ?C (99.3 ?F) 05/28/20 06 SpO2 100 % 05/28/20631 Facility-Administered Medications as of 05/28/2020 Medication Dose Route Frequency - lidocaine 10 mg/mL (1 %) 1-2 mg injection (XYLOCAINE) 0.1-0.2 mL INTRADERMAL PRN - lactated ringers infusion 75 mL/hr INTRAVENOUS CONTINUOUS Outpatient Medications as of 05/28/2020 Medication Sig - potassium chloride (KLOR-CON 10) 10 mEq tablet Take 1 tablet by mouth once daily. - Norethindrone Acet-Ethinyl Est (JUNE,) 1-20 mg-mcg per tablet Take one active [...] May 28, 2020 TIME: 7:09 AM CSN: [id number] Normal [facility] OPERATIVE NOon 05-28-2020 OPERATIVE NO HNO ID: [id number] Author: Elida Franklin Service: Endocrine Surgery Author Type: Physician Type: Operative Report Filed: 05/28/2020 9:12 AM Note Text: [facility] - Operative Report PHILIPPE RG : 1985 AGE: 34. SEX: F PATIENT TYPE: A HOSP SVC: [facility] LOCATION: [facility] ATTENDING PHYSICIAN: Elida Franklin MD CSN NUMBER: [id number] DATE OF SURGERY/PROCEDURE: 05/28/2020 INCISION/PROCEDURE START TIME: 7:31 a.m. INCISION CLOSE/PROCEDURE END TIME: 8:01 a.m. PREOPERATIVE DIAGNOSIS: Left thyroid nodule suspicious for papillary thyroid carcinoma. POSTOPERATIVE DIAGNOSIS: Left thyroid nodule suspicious for papillary thyroid carcinoma. SURGEON: Elida Franklin MD EMPLOYEE RELATIONS ASSISTANT: Em Simmons MD SURGERY/PROCEDURE: Left thyroid lobectomy [...] Intraoperative neck ultrasound was performed using an [employer] Alpha ultrasound machine with a small parts transducer. [...] Dr. Simmons was asked to serve as patient services assistant. During the course of the dissection, the patient services assistant assisted with thyroid mobilization, vascular isolation, and division. ESTIMATED BLOOD LOSS: Minimal. DRAINS: None. SPECIMENS: Sent to Pathology, left thyroid lobe and isthmus. COUNTS: Sponge and needle counts were correct. COMPLICATIONS: There were no intraoperative complications. Elida Franklin MD JS:[id number] cc: [facility] PROGRESSon 05-28-2020 PROGRESS HNO ID: [id number] Author: mE Simmons Service: General Surgery Author Type: Physician Type: Progress Notes Filed: 05/28/2020 1:30 PM Note Text: ENDOCRINE SURGERY PROGRESS NOTE Philippe Rg [id number] ID: 34 year old female POD#: 0 [...] Simmons MD May 28, 2020 12:39 PM [facility] SURGICAL PATHOLOGYon 021 SURGICAL PATHOLOGY Specimen #: [id number] Submitting Physician: ELIDA FRANKLIN MD FINAL [...] Blue External surface of the left lobe Dillon External surface/resection margin of the isthmus Sectioning: [...] Nodule NAIN/dcr 05/28/2020 Gross examination performed at [facility], [address] [place] [address] Date of Report: 05/31/2020 Date of Procedure: 05/28/2020 Date of Receipt: 05/28/2020 Submitted by: ELIDA FRANKLIN MD Location: [id number] Diagnostic interpretation performed at [place] [address]. CLIA Number: [id number] [facility] Head and neck soft tissue on 03-15-2020 IMPRESSION: Findings consistent with vascular nodule within the mid to lower left thyroid lobe with cystic center, as described. No further abnormality is seen. Farmworkers: RIZWANA Transcribe Date/Time: Mar 15 2020 2:30P Dictated by : GINNY SEYMOUR MD This examination was interpreted and the report reviewed and electronically signed by: GINNY SEYMOUR MD on Mar 15 2020 2:32PM [facility] [[email or web address]] DIVISION OF RADIOLOGY * * *Final Report* [...] no focal abnormality. DIVISION OF RADIOLOGY Provider, [facility] - 03/15/2020 * * *Final Report* * * DATE OF EXAM: Mar 15 2020 12:33PM [facility] [place] 1052 - US HEAD/NECK SOFT TISSUE OTHER [...] as described. No further abnormality is seen. Farmworkers: RIZWANA Transcribe Date/Time: Mar 15 2020 2:30P Dictated by : GINNY SEYMOUR MD This examination was interpreted and the report reviewed and electronically signed by: GINNY SEYMOUR MD on Mar 15 2020 2:32PM EST [facility] Radiology Study observation (narrative) [facility] US Head and neck soft tissue Ordered By: [facility] Provider on 03-15-[address] [facility] [address] ENTEROGRAPHY W IVCONon CT ENTEROGRAPHY W IVCON * * *Final Report* * *DATE OF EXAM: Mar 23 2017 8:19AM [facility] 0545 - CT ENTEROGRAPHY W IVCON / [...] fistula arising complications and additional surgery in [id number].TECHNIQUE: CT of the abdomen and pelvis using [...] Date/Time: Mar 23 2017 1:13PDictated by : CLARISSA DICK MDThis examination was interpreted and the report reviewed and electronically signed by: CLARISSA DICK MD on Mar 23 2017 1:23PM [id number] [facility] NURSING PROGon 03-23-2017 NURSING PROG HNO ID: [id number] thor: Guillermina (Rn) ROMARIO Kinneyervice: RadiologyAuthor Type: Registered NurseType: Nursing Progress NoteFiled: 03/23/2017 8:20 AMNote Text: Radiology Service Progress NotePATIENT NAME: Philippe RgMRN: [id number] OF SERVICE: March 23, 2017TIME: 8:19 AMPATIENT WEIGHT: 90 LBSPATIENT IDENTITY VERIFICATION COMPLETED USING TWO (2) METHODS: Patientconfirmed name verbally and ID band matches..PATIENT GENDER DATA: Female. status: : NoBreastfeeding status: NO.CONTRAST INDUCED NEPHROPATHY RISK FACTORS: Not applicableCREATININE:Creati nineDate Value Ref Range Llcfqq93/12/2017 1.28 (H) 0.58 - 0.96 mg/dL Final03/16/2017 1.33 (H) 0.58 - 0.96 mg/dL Final03/02/2017 1.31 0.70 - 1.40 mg/dL Final eGFR-All Other RacesDate Value Ref Range Degrox6203/21/2017 49 . FinalComment:eGFR (Estimated GFR) Units of [...] actual GFR. eGFR- AmericanDate Value Ref Range Mmceiy7303/21/2017 59 Final P.O.C.T. RESULTS: N/A March 23, 2017TREATMENT: No Hydration needed.ALLERGIES: Reviewed and unchangedCONTRAST ALLERGY: NO.IV SITE: Ambulatory: A peripheral IV was started in the Right hand witha Angio cath: 22 gauge.IV SITE APPEARANCE: Clean,Dry and IntactSIGNED BY: Guillermina Kinney RNMarch 23, 2017 8:19 AM Normal [facility] NURSING PROG HNO ID: [id number] thor: Guillermina (Rn) ROMARIO Kinneyervice: PICC TeamAuthor Type: Registered NurseType: Nursing Progress [...] 2017 : 8:18 AM PAGER/CONTACT #: [phone] [facility] Vital Signs Date Time Vital Sign Value Performing Clinician Facility 08-31-2024 22:39-0400 Body temperature 97.2 [degF] Antonio Wayt PA Work Phone: [facility] 08-31-2024 22:39-0400 Diastolic blood pressure 65 mm[Hg] Antonio Wayt PA Work Phone: [facility] 08-31-2024 22:39-0400 Heart rate 59 /min Antonio Wayt PA Work Phone: [facility] 08-31-2024 22:39-0400 Respiratory rate 18 /min Antonio Wayt PA Work Phone: [facility] 08-31-2024 22:39-0400 SaO2% (BldA) [Mass fraction] 98 % Antonio Wayt PA Work Phone: [facility] 08-31-2024 22:39-0400 Systolic blood pressure 108 mm[Hg] Antonio Wayt PA Work Phone: [facility] 08-31-2024 18:51-0400 Body height 144.78 cm Antonio Wayt PA Work Phone: [facility] 08-31-2024 18:51-0400 Body mass index (BMI) [Ratio] 15.7 kg/m2 Antonio Wayt PA Work Phone: [facility] 08-31-2024 18:51-0400 Body weight 32.93 kg Antonio Wayt PA Work Phone: [facility] 06-23-2024 13:17-0400 Body height 144.8 cm Caren Shine MD Work Phone: [facility] 06-23-2024 13:17-0400 Body mass index (BMI) [Ratio] 16.66 kg/m2 Caren Shine MD Work Phone: [facility] 06-23-2024 13:17-0400 Body weight 34.93 kg Caren Shine MD Work Phone: [facility] 06-23-2024 13:17-0400 Diastolic blood pressure 56 mm[Hg] Caren Shine MD Work Phone: [facility] 06-23-2024 13:17-0400 Systolic blood pressure 88 mm[Hg] Caren Shine MD Work Phone: [facility] 06-03-2024 09:32-0400 Body height 144.78 cm No Primary Care Physician [facility] 06-03-2024 09:32-0400 Body mass index (BMI) [Ratio] 16.9 kg/m2 No Primary Care Physician [facility] 06-03-2024 09:32-0400 Body weight 35.38 kg No Primary Care Physician [facility] 06-03-2024 09:32-0400 Diastolic blood pressure 63 mm[Hg] No Primary Care Physician [facility] 06-03-2024 09:32-0400 Heart rate 90 /min No Primary Care Physician [facility] 06-03-2024 09:32-0400 SaO2% (BldA) [Mass fraction] 99 % No Primary Care Physician [facility] 06-03-2024 09:32-0400 Systolic blood pressure 89 mm[Hg] No Primary Care Physician [facility] 05-28-2024 07:51-0400 Body mass index (BMI) [Ratio] 16.9 kg/m2 No Primary Care Physician [facility] 05-28-2024 07:51-0400 Body temperature 98.2 [degF] No Primary Care Physician [facility] 05-28-2024 07:51-0400 Body weight 35.38 kg No Primary Care Physician [facility] 05-28-2024 07:51-0400 Diastolic blood pressure 58 mm[Hg] No Primary Care Physician [facility] 05-28-2024 07:51-0400 Heart rate 74 /min No Primary Care Physician [facility] 05-28-2024 07:51-0400 Respiratory rate 18 /min No Primary Care Physician [facility] 05-28-2024 07:51-0400 SaO2% (BldA) [Mass fraction] 100 % No Primary Care Physician [facility] 05-28-2024 07:51-0400 Systolic blood pressure 82 mm[Hg] No Primary Care Physician [facility] 05-15-2024 09:04-0500 Body height 144.[address] Chad Coleman DO Work Phone: 8([phone])603-762056 [place] [address] 05-15-2024 09:04-0500 Body mass index (BMI) [Ratio] 18.6 kg/m2 Dr. Chad Coleman DO Work Phone: 3(668)805-367656 [place] [address] 05-15-2024 09:04-0500 Body weight 39.[address] Chad Coleman DO Work Phone: 1(637)073-587456 [place] [address] 05-15-2024 09:04-0500 Diastolic blood pressure 65 mm[Hg] Dr. Chad Coleman DO Work Phone: 9(926)053-653956 [place] [address] 05-15-2024 09:04-0500 Heart rate 68 /min Dr. Chad Coleman DO Work Phone: 8(836)627-562856 [place] [address] 05-15-2024 09:04-0500 Respiratory rate 16 /min Dr. Chad Coleman DO Work Phone: 5(117)021-601356 [place] [address] 05-15-2024 09:04-0500 SaO2% (BldA) [Mass fraction] 99 % Dr. Chad Coleman DO Work Phone: 9(731)700-617956 [place] [address] 05-15-2024 09:04-0500 Systolic blood pressure 96 mm[Hg] Dr. Chad Coleman DO Work Phone: 6(877)949-834856 [place] [address] 05-14-2024 12:11-0500 Body temperature 97.7 [degF] Dr. Chad Coleman DO Work Phone: 0(673)420-556756 [place] [address] 05-14-2024 12:11-0500 Diastolic blood pressure 47 mm[Hg] Dr. Chad Coleman DO Work Phone: 4(665)140-049256 [place] [address] 05-14-2024 12:11-0500 Heart rate 49 /min Dr. Chad Coleman DO Work Phone: 1(665)718-719156 [place] [address] 05-14-2024 12:11-0500 Respiratory rate 16 /min Dr. Chad Coleman DO Work Phone: 8(846)763-284756 [place] [address] 05-14-2024 12:11-0500 SaO2% (BldA) [Mass fraction] 98 % Dr. Chad Coleman DO Work Phone: 9(459)997-555087 [place] [address] 05-14-2024 12:11-0500 Systolic blood pressure 82 mm[Hg] Dr. Chad Coleman DO Work Phone: 1(911)472-130087 [place] [address] 05-13-2024 11:20-0500 Body weight 35.[address] Chad Coleman DO Work Phone: 7(515)297-594756 [place] [address] 05-13-2024 03:30-0500 Body mass index (BMI) [Ratio] 17.1 kg/m2 Dr. Chad Coleman DO Work Phone: 5(123)592-462087 [place] [address] 04-10-2024 07:22-0500 Body mass index (BMI) [Ratio] 17.3 kg/m2 Dr. Chad Coleman DO Work Phone: 0(598)841-726356 [place] [address] 04-10-2024 07:22-0500 Body weight 36.[address] Chad Coleman DO Work Phone: 1(102)109-362956 [place] [address] 04-10-2024 07:22-0500 Diastolic blood pressure 62 mm[Hg] Dr. Chad Coleman DO Work Phone: [phone])999-369356 [address] [place] [address] 04-10-2024 07:22-0500 Heart rate 91 /min Dr. Chad Coleman DO Work Phone: [facility] 04-10-2024 07:22-0500 Respiratory rate 16 /min Dr. Chad Coleman DO Work Phone: 2(885)753-434056 [place] [address] 04-10-2024 07:22-0500 Systolic blood pressure 78 mm[Hg] Dr. Chad Coleman DO Work Phone: 1(180)822-428956 [place] [address] 03-26-2024 14:53-0500 Body mass index (BMI) [Ratio] 17.1 kg/m2 Dr. Chad Coleman DO Work Phone: 6(843)942-051102 [address] 03-26-2024 14:53-0500 Body temperature 97.7 [degF] Dr. Chad Coleman DO Work Phone: 8(825)484-491887 [place] [address] 03-26-2024 14:53-0500 Body weight 35.[address] Chad Coleman DO Work Phone: 2(020)265-806787 [place] [address] 03-26-2024 14:53-0500 Diastolic blood pressure 60 mm[Hg] Dr. Chad Coleman DO Work Phone: 4(413)336-694656 [place] [address] 03-26-2024 14:53-0500 Heart rate 84 /min Dr. Chad Coleman DO Work Phone: 2(545)608-063156 [place] [address] 03-26-2024 14:53-0500 Respiratory rate 16 /min Dr. Chad Coleman DO Work Phone: 6(540)388-047356 [place] [address] 03-26-2024 14:53-0500 SaO2% (BldA) [Mass fraction] 98 % Dr. Chad Coleman DO Work Phone: 0(104)874-807456 [place] [address] 03-26-2024 14:53-0500 Systolic blood pressure 110 mm[Hg] Dr. Chad Coleman DO Work Phone: 7(831)768-665356 [place] [address] 03-21-2024 08:58-0500 Body mass index (BMI) [Ratio] 17.1 kg/m2 Dr. Chad Coleman DO Work Phone: 1(816)665-162256 [place] [address] 03-21-2024 08:58-0500 Body temperature 97.4 [degF] Dr. Chad Coleman DO Work Phone: 3(356)622-820987 [place] [address] 03-21-2024 08:58-0500 Body weight 35.[address] Chad Coleman DO Work Phone: 6(822)078-207387 [place] [address] 03-21-2024 08:58-0500 Diastolic blood pressure 48 mm[Hg] Dr. Chad Coleman DO Work Phone: 6(569)035-708487 [place] [address] 03-21-2024 08:58-0500 Heart rate 102 /min Dr. Chad Coleman DO Work Phone: 0(405)580-511187 [place] [address] 03-21-2024 08:58-0500 Respiratory rate 17 /min Dr. Chad Coleman DO Work Phone: 6(713)589-435887 [place] [address] 03-21-2024 08:58-0500 SaO2% (BldA) [Mass fraction] 99 % Dr. Chad Coleman DO Work Phone: 0(956)040-230556 [place] [address] 03-21-2024 08:58-0500 Systolic blood pressure 82 mm[Hg] Dr. Chad Coleman DO Work Phone: 0(826)336-666256 [place] [address] 03-08-2024 01:39-0500 Body temperature 97.8 [degF] Dr. Chad Coleman DO Work Phone: 2(696)322-580756 [place] [address] 03-08-2024 01:39-0500 Diastolic blood pressure 71 mm[Hg] Dr. Chad Coleman DO Work Phone: 0(099)066-919256 [place] [address] 03-08-2024 01:39-0500 Heart rate 101 /min Dr. Chad Coleman DO Work Phone: 5(106)104-137956 [place] [address] 03-08-2024 01:39-0500 Respiratory rate 18 /min Dr. Chad Coleman DO Work Phone: 2(166)719-954656 [place] [address] 03-08-2024 01:39-0500 SaO2% (BldA) [Mass fraction] 99 % Dr. Chad Coleman DO Work Phone: 7(860)601-252556 [place] [address] 03-08-2024 01:39-0500 Systolic blood pressure 103 mm[Hg] Dr. Chad Coleman DO Work Phone: 2(879)742-739056 [place] [address] 03-07-2024 21:23-0500 Body mass index (BMI) [Ratio] 17.2 kg/m2 Dr. Chad Coleman DO Work Phone: 2(944)366-441787 [place] [address] 03-07-2024 21:23-0500 Body weight 35.[address] Chad Coleman DO Work Phone: 2(789)305-572887 [place] [address] 03-03-2024 13:45-0500 Body mass index (BMI) [Ratio] 16.9 kg/m2 Dr. Chad Coleman DO Work Phone: 6(956)171-763556 [place] [address] 03-03-2024 13:45-0500 Body weight 35.[address] Chad Coleman DO Work Phone: 7(089)803-889456 [place] [address] 03-03-2024 13:45-0500 Diastolic blood pressure 67 mm[Hg] Dr. Chad Coleman DO Work Phone: 1(753)264-116756 [place] [address] 03-03-2024 13:45-0500 Heart rate 119 /min Dr. Chad Coleman DO Work Phone: 7(090)639-320956 [place] [address] 03-03-2024 13:45-0500 Respiratory rate 16 /min Dr. Chad Coleman DO Work Phone: 3(341)302-371656 [place] [address] 03-03-2024 13:45-0500 SaO2% (BldA) [Mass fraction] 98 % Dr. Chad Coleman DO Work Phone: 0(368)998-583356 [place] [address] 03-03-2024 13:45-0500 Systolic blood pressure 96 mm[Hg] Dr. Chad Coleman DO Work Phone: 7(297)596-968156 [place] [address] 02-29-2024 21:15-0500 Body temperature 98.1 [degF] Dr. Chad Coleman DO Work Phone: 3(114)319-095387 [place] [address] 02-29-2024 21:15-0500 Diastolic blood pressure 67 mm[Hg] Dr. Chad Coleman DO Work Phone: 2(002)981-952087 [place] [address] 02-29-2024 21:15-0500 Heart rate 85 /min Dr. Chad Coleman DO Work Phone: 9(855)608-094387 [place] [address] 02-29-2024 21:15-0500 Respiratory rate 15 /min Dr. Chad Coleman DO Work Phone: 3(448)213-043987 [place] [address] 02-29-2024 21:15-0500 SaO2% (BldA) [Mass fraction] 99 % Dr. Chad Coleman DO Work Phone: 2(979)435-393687 [place] [address] 02-29-2024 21:15-0500 Systolic blood pressure 101 mm[Hg] Dr. Chad Coleman DO Work Phone: 6(447)219-668787 [place] [address] 02-29-2024 17:06-0500 Body mass index (BMI) [Ratio] 17.3 kg/m2 Dr. Chad Coleman DO Work Phone: 2(592)360-629756 [place] [address] 02-29-2024 17:06-0500 Body weight 36.[address] Chad Coleman DO Work Phone: 4(055)426-895256 [place] [address] 02-21-2024 13:44-0500 Body mass index (BMI) [Ratio] 16.9 kg/m2 Dr. Chad Coleman DO Work Phone: [facility] 02-21-2024 13:44-0500 Body temperature 97.9 [degF] Dr. Chad Coleman DO Work Phone: 3(974)281-022056 [place] [address] 02-21-2024 13:44-0500 Body weight 35.[address] Chad Coleman DO Work Phone: 9(362)709-346756 [place] [address] 02-21-2024 13:44-0500 Diastolic blood pressure 50 mm[Hg] Dr. Chad Coleman DO Work Phone: 9(883)448-688656 [place] [address] 02-21-2024 13:44-0500 Heart rate 116 /min Dr. Chad Coleman DO Work Phone: 8(694)555-682956 [place] [address] 02-21-2024 13:44-0500 Respiratory rate 16 /min Dr. Chad Coleman DO Work Phone: 8(850)321-878356 [place] [address] 02-21-2024 13:44-0500 SaO2% (BldA) [Mass fraction] 98 % Dr. Chad Coleman DO Work Phone: 7(116)322-044556 [place] [address] 02-21-2024 13:44-0500 Systolic blood pressure 98 mm[Hg] Dr. Chad Coleman DO Work Phone: 5(721)880-420356 [place] [address] 02-07-2024 17:56-0500 Body temperature 98 [degF] Dr. Chad Coleman DO Work Phone: 2(566)116-943456 [place] [address] 02-07-2024 17:56-0500 Diastolic blood pressure 70 mm[Hg] Dr. Chad Coleman DO Work Phone: 0(864)580-950656 [place] [address] 02-07-2024 17:56-0500 Heart rate 102 /min Dr. Chad Coleman DO Work Phone: 4(739)816-234156 [place] [address] 02-07-2024 17:56-0500 Respiratory rate 18 /min Dr. Chad Coleman DO Work Phone: [facility] 02-07-2024 17:56-0500 SaO2% (BldA) [Mass fraction] 100 % Dr. Chad Coleman DO Work Phone: [facility] 02-07-2024 17:56-0500 Systolic blood pressure 101 mm[Hg] Dr. Chad Coleman DO Work Phone: [facility] 02-07-2024 15:28-0500 Body mass index (BMI) [Ratio] 17.3 kg/m2 Dr. Chad Coleman DO Work Phone: [facility] 02-07-2024 15:28-0500 Body weight 36.[address] Chad Coleman DO Work Phone: [facility] 11-08-2023 15:07-0400 Body height 144.8 cm Philippe Wallace APRN.DETAIL SUPERVISOR Work Phone: [facility] 11-08-2023 15:07-0400 Body mass index (BMI) [Ratio] 18.22 kg/m2 Philippe Wallace APRN.DETAIL SUPERVISOR Work Phone: [facility] 11-08-2023 15:07-0400 Body weight 38.19 kg Philippe Wallace APRN.DETAIL SUPERVISOR Work Phone: [facility] 11-08-2023 15:07-0400 Diastolic blood pressure 54 mm[Hg] Philippe Wallace APRN.DETAIL SUPERVISOR Work Phone: [facility] 11-08-2023 15:07-0400 Heart rate 106 /min Philippe Wallace APRN.DETAIL SUPERVISOR Work Phone: [facility] 11-08-2023 15:07-0400 Respiratory rate 12 /min Philippe Wallace APRN.DETAIL SUPERVISOR Work Phone: [facility] 11-08-2023 15:07-0400 SaO2% (BldA) [Mass fraction] 98 % Philippe Wallace APRN.DETAIL SUPERVISOR Work Phone: [facility] 11-08-2023 15:07-0400 Systolic blood pressure 80 mm[Hg] Philippe Rodrigo AMADOR.DETAIL SUPERVISOR Work Phone: [facility] 05-29-2023 13:12-0400 Body height 143 cm Caren Shine MD Work Phone: [facility] 05-29-2023 13:12-0400 Body weight 39.92 kg Caren Shine MD Work Phone: [facility] 05-29-2023 13:12-0400 Diastolic blood pressure 60 mm[Hg] Caren Shine MD Work Phone: [facility] 05-29-2023 13:12-0400 Systolic blood pressure 110 mm[Hg] Caren Shine MD Work Phone: [facility] 01-18-2022 07:48-0500 Body temperature 96.91 [degF] Vicky Mayfield APRN.DETAIL SUPERVISOR Work Phone: [facility] 01-18-2022 07:48-0500 Body weight 35.38 kg Vicky Mayfield APRN.DETAIL SUPERVISOR Work Phone: [facility] 01-18-2022 07:48-0500 Diastolic blood pressure 58 mm[Hg] Vicky Mayfield APRN.DETAIL SUPERVISOR Work Phone: [facility] 01-18-2022 07:48-0500 Heart rate 80 /min Vicky Mayfield APRN.DETAIL SUPERVISOR Work Phone: [facility] 01-18-2022 07:48-0500 Respiratory rate 16 /min Vicky Mayfield APRN.DETAIL SUPERVISOR Work Phone: [facility] 01-18-2022 07:48-0500 SaO2% (BldA) [Mass fraction] 98 % Vicky Mayfield APRN.DETAIL SUPERVISOR Work Phone: [facility] 01-18-2022 07:48-0500 Systolic blood pressure 88 mm[Hg] Vicky Mayfield APRN.DETAIL SUPERVISOR Work Phone: [facility] 10-26-2021 14:36-0400 Body height 144.8 cm Magda Lindsay [employer]ORTS COACH.CNM Work Phone: [facility] 10-26-2021 14:36-0400 Body weight 38.1 kg Magda Lindsay [employer]CHO[employer] SPORTS COACH.CNM Work Phone: [facility] 10-26-2021 14:36-0400 Diastolic blood pressure 58 mm[Hg] Magda Lindsay [employer]IGH [employer]CHO[employer] SPORTS COACH.CNM Work Phone: [facility] 10-26-2021 14:36-0400 Systolic blood pressure 86 mm[Hg] Magda Lindsay [employer] SPORTS COACH.CNM Work Phone: [facility] 09-26-2021 13:27-0400 Body weight 39.01 kg Magda Lindsay [employer] SPORTS COACH.CNM Work Phone: [facility] 09-26-2021 13:27-0400 Diastolic blood pressure 72 mm[Hg] Magda Lindsay [employer] SPORTS COACH.CNM Work Phone: [facility] 09-26-2021 13:27-0400 Systolic blood pressure 112 mm[Hg] Magda Lindsay [employer] SPORTS COACH.CNM Work Phone: [facility] 09-07-2021 06:20-0400 Diastolic blood pressure 70 mm[Hg] [facility] Work Phone: 09-07-2021 06:20-0400 Heart rate 80 /min [facility] Work Phone: 09-07-2021 06:20-0400 Respiratory rate 19 /min [facility] Work Phone: 09-07-2021 06:20-0400 SaO2% (BldA) [Mass fraction] 98 % [facility] Work Phone: 09-07-2021 06:20-0400 Systolic blood pressure 110 mm[Hg] [facility] Work Phone: 09-07-2021 03: Body height 144.78 cm [facility] Work Phone: 09-07-2021 03: Body mass index (BMI) [Ratio] 19.4 kg/m2 [facility] Work Phone: 09-07-2021 03: Body temperature 98.2 [degF] [facility] Work Phone: 09-07-2021 03: Body weight 40.7 kg [facility] Work Phone: Encounters Encounter Date Encounter Type Care Provider Facility Start: 08-31-2024 End: 08-31-2024 Emergency department patient visit Antonio VEGAS Work Phone: -Emergency Department Work Phone: Start: 07-17-2024 ambulatory Antonio VEGAS Facilit y:[facility] Start: 07-15-2024 ambulatory Antonio VEGAS Facilit y:[facility] Start: 07-15-2024 End: 07-16-2024 Evaluation and management of inpatient NÉSTOR Edward GRECO Facility:[facility] Start: 07-14-2024 End: 07-14-2024 Emergency department patient visit THADDEUS MCCALLTORYGLYNNSALLYRené Facility:[facility] Start: 07-02-2024 End: 09-01-2024 Follow-up encounter Philippe Wallace APRN.CNP Work Phone: OB/Gynecology Start: 06-26-2024 ambulatory Cj Mcpherson Facility:[facility] Start: 06-23-2024 End: 06-23-2024 Patient encounter procedure Caren Shine MD Work Phone: OB/Gynecology Comment on above: Encounter for gyneco logical examination (general) (routine) with abnormal findings (Primary Dx); Encounter for screening for malignant neoplasm of cervix; Special screening examination for human papillomavirus (HPV); Left ovarian cyst Start: 06-23-2024 End: 06-23-2024 Patient encounter status Caren Shine MD Work Phone: [facility] Work Phone: Start: 06-23-2024 End: 06-23-2024 ambulatory CARENCICI RODRIGUEZNTOSH Facility:[facility] Start: 06-23-2024 Encounter for gynecological examination (general) (routine) with abnormal findings CAREN FORTEDougGLADYS SHINE [facility] Start: 06-03-2024 End: 06-03-2024 ambulatory No Primary Care Physician [facility] Work Phone: Start: 06-03-2024 End: 06-03-2024 Patient encounter procedure Antonio VEGAS -Laboratory, [facility] Start: 06-03-2024 End: 06-03-[address] Cj Mcpherson MD -[facility] Work Phone: Start: 06-03-2024 End: 06-03-2024 ambulatory Cj Mcpherson Facility:[facility] Start: 06-03-2024 End: 06-03-2024 ambulatory Antonio VEGAS Facility:[facility] Start: 05-28-2024 End: 05-28-2024 Patient encounter procedure Antonio VEGAS -[facility] Work Phone: Start: 05-28-2024 End: 05-28-2024 ambulatory Antonio VEGAS Facility:[facility] Start: 05-15-2024 End: 05-15-2024 Patient encounter procedure Ashley Caruso INVENTORY CLERK-C -[facility] Work Phone: Start: 05-15-2024 End: 05-15-[address] Chad Coleman DO Work Phone: [facility] Work Phone: Start: 05-15-2024 End: 05-15-2024 ambulatory Ashley Caruso Facility:[facility] Start: 05-14-2024 Non-patient / Non-visit Dr. Yousuf Pleitez MD -[facility] Work Phone: Start: 05-13-2024 ambulatory Josiah Wilkins Facility:[facility] Start: 05-13-2024 End: 05-14-2024 Evaluation and management of inpatient Dr. Yousuf Pleitez MD -[facility] Work Phone: Start: 05-13-2024 End: 05-14-2024 Evaluation and management of inpatient Dr. Yousuf Pleitez MD -[facility] Work Phone: Start: 05-13-2024 End: 05-14-2024 ambulatory Josiah Wilkins Facility:[facility] Start: 05-13-2024 Non-patient / Non-visit Dr. Josiah blount MD -[facility] Work Phone: Start: 04-10-2024 ambulatory Brendon Dave Facility:[facility] Start: 04-10-2024 Non-patient / Non-visit Dr. Brendon english MD -[facility] Start: 04-10-2024 End: 04-10-2024 Patient encounter procedure Antonio VEGAS -Cardiovascular Services Work Phone: Start: 04-10-2024 End: 04-10-[address] Brendon Dave MD -[facility] Work Phone: Start: 04-10-2024 End: 04-10-2024 ambulatory Brendon Dave Facility:[facility] Start: 04-10-2024 End: 04-10-2024 ambulatory Antonio VEGAS Facility:[facility] Start: 03-26-2024 End: 03-26-2024 Patient encounter procedure Antonio VEGAS -[facility] Work Phone: Start: 03-26-2024 End: 03-26-2024 ambulatory Antonio VEGAS Facility:[facility] Start: 03-25-2024 ambulatory Brendon Dave Facility:[facility] Start: 03-25-2024 Non-patient / Non-visit Dr. Brendon english MD -[facility] Work Phone: Start: 03-25-2024 End: 03-25-2024 Patient encounter procedure Antonio VEGAS -Pulmonary Services/Neurology Work Phone: Start: 03-25-2024 End: 03-25-2024 ambulatory Antonio VEGAS Facility:[facility] Start: 03-24-2024 End: 03-24-2024 Patient encounter procedure Antonio VEGAS -Laboratory, [facility] Start: 03-24-2024 End: 03-24-2024 ambulatory Antonio VEGAS Facility:[facility] Start: 03-21-2024 End: 03-21-2024 Patient encounter procedure Antonio VEGAS -[facility] Work Phone: Start: 03-21-2024 End: 03-21-2024 ambulatory Antonio VEGAS Facility:[facility] Start: 03-07-2024 End: 03-08-2024 Emergency department patient visit Guerrero Fuller DO -Emergency Department Work Phone: Start: 03-06-2024 End: 03-06-2024 ambulatory ALBA DIAZ Facility:[facility] Start: 03-06-2024 End: 03-06-2024 Patient encounter procedure Fidencio Mcpherson APRN.DETAIL SUPERVISOR Work Phone: [facility] Comment on above: Procedure not kate d out (Primary Dx) Start: 03-03-2024 End: 03-03-2024 Patient encounter procedure Ashley THRASHER -Laboratory Work Phone: Start: 03-03-2024 End: 03-03-2024 Patient encounter procedure Ashley MORINC -[facility] Work Phone: Start: 03-03-2024 End: 03-03-2024 ambulatory No Primary Care Physician Facility:[facility] Start: 03-03-2024 End: 03-03-2024 ambulatory Antonio VEGAS Facility:[facility] Start: 02-29-2024 End: 02-29-2024 Emergency department patient visit Dr. Jose Guadalupe Lazo DO -Emergency Department Work Phone: Start: 02-21-2024 End: 02-21-2024 Patient encounter procedure nAtonio VEGAS -Laboratory, Specimen Work Phone: Start: 02-21-2024 End: 02-21-2024 Patient encounter procedure Antonio VEGAS [facility] Work Phone: Start: 02-21-2024 End: 02-21-2024 ambulatory No Primary Care Physician Facility:[facility] Start: 02-21-2024 End: 02-21-2024 ambulatory No Primary Care Physician Facility:[facility] Start: 02-07-2024 End: 02-07-2024 Emergency department patient visit Dr. Chad Coleman DO -Emergency Department Work Phone: Start: 01-25-2024 End: 01-25-2024 ambulatory Philippenina Hodgeullo Facility:[facility] Start: 01-11-2024 End: 01-11-2024 Emergency department patient visit [facility] Facility:[facility] Start: 11-19-2023 End: 11-19-2023 Orders Only Philippe Wallace HIGH [employer] SPORTS COACH.DETAIL SUPERVISOR Work Phone: OB/Gynecology Comment on above: Ovarian cyst, left ( Primary Dx) Start: 11-09-2023 End: 11-09-2023 ambulatory PHILIPPE RODRIGO OB/Gynecology Start: 11-09-2023 End: 11-09-2023 Patient encounter procedure [employer] OB/Gynecology Start: 11-08-2023 End: 11-08-2023 [facility] Start: 11-08-2023 End: 11-08-2023 Patient encounter procedure Philippe Wallace [employer] SPOR[employer] COACH.DETAIL SUPERVISOR Work Phone: OB/Gynecology Comment on above: Ovarian cyst, left ( Primary Dx); Other intra-abdominal and pelvic swelling, mass and lump Start: 11-08-2023 End: 11-08-2023 ambulatory Philippe Ferullo Facility:[facility] Start: 11-06-2023 End: 11-06-2023 ambulatory Philippenina Hodgeullo Facility:[facility] Start: 11-06-2023 End: 11-06-2023 [facility] Start: 10-17-2023 End: 10-17-2023 [facility] Start: 05-29-2023 End: 05-29-2023 Patient encounter procedure [...] End: 01-18-2022 Patient encounter procedure Vicky Mayfield APRN.DETAIL SUPERVISOR Work Phone: [facility] Comment on above: Urinary frequency (P rimary Dx); Burning with urination Start: 10-31-2021 Telephone encounter Renetta gallego APRN.DETAIL SUPERVISOR Work Phone: OB/Gynecology Comment on above: Results Start: 10-26-2021 End: 10-26-2021 Patient encounter procedure Magda Lindsay APRN.CNJacob Work Phone: OB/Gynecology Comment on above: Encounter for gyneco logical examination (general) (routine) without abnormal findings (Primary Dx); Vaginal discharge; Vulvar itching; Spongiotic dermatitis; control counseling Start: 10-26-2021 End: 10-26-2021 Patient encounter status Magda Lindsay APRN.CNM Work Phone: OB/Gynecology Start: 10-15-2021 Refill Alisia friedman MD, PhD Work Phone: Endocrinology Comment on above: Refill Request Start: 09-29-2021 Telephone encounter Nurse Micha [facility] Farhana Work Phone: Reproductive Endocrinology Infertility Comment on above: Mailed embryo destro y form Start: 09-26-2021 End: 09-26-2021 Patient encounter procedure Magda Lindsay APRN.CNM Work Phone: OB/Gynecology Comment on above: Vulvar itching (Prim zeina Dx); Vaginal itching Start: 09-07-2021 End: 09-07-2021 Emergency department patient visit [facility]-Emergency Department Start: 08-10-2021 Telephone encounter Darcy Ling APRN.DETAIL SUPERVISOR Work Phone: [facility] Comment on above: Insurance Authorizat ion (Prior Auth Delayed: Additional Information Needed (Entyvio)) Start: 06-06-2021 End: 06-06-2021 ambulatory Darin Cormier MD Work Phone: Gastroenterology Comment on above: Crohn's disease of s mall and large intestines with complication (HCC) (Primary Dx) Start: 06-06-2021 End: 06-06-2021 Telemedicine consultation with patient Darin Cormier MD Work Phone: [facility] Start: 06-06-2021 Telephone encounter Magda wylie APRN.DETAIL SUPERVISOR Work Phone: Gastroenterology Comment on above: ED Follow-up Start: 03-15-2020 End: 03-15-2020 Subsequent hospital visit by physician [facility] Work Phone: Radiology Comment on above: Nodule of neck [R22. 1] Start: 03-23-2017 Ambulatory DARIN CORMIER [facility] Procedures Date Procedure Procedure Detail Performing Clinician Start: 08-31-2024 Estimated creatinine clearance Antonio VEGAS Work Phone: Start: 07-15-2024 H/O: ileostomy H/O ileostomy Philippe sarkar H[employer] SPOR[employer] COACH.DETAIL SUPERVISOR Work Phone: Start: 06-03-2024 Osmolality measureme nt, serum Antonio VEGAS Work Phone: Start: 05-14-2024 Estimated creatinine clearance Antonio VEGAS Work Phone: Start: 05-13-2024 Bacteria identificat ion test Dr. [...] nonobstetr ic real-time image complete Philippe Wallace HIGH [employer]CHOOL SPORTS COACH.DETAIL SUPERVISOR Work Phone: Start: 01-18-2022 Urnls dip stick/tabl et rgnt auto w/o microscopy Saulo Mcpherson [employer]IGH [employer] SPORTS COACH.DETAIL SUPERVISOR Work Phone: Start: 06-07-2020 Adult depression scr eening assessment Darin Cormier MD Work Phone: Start: 03-15-2020 Us soft tissue head & neck real time imge docm Katlyn Salomonlogar HIGH [employer]CHO[employer] SPORTS COACH.DETAIL SUPERVISOR Work Phone: Plan of Treatment Date Care Activity Detail Author Start: 2046 HEPATITIS B (1 of 3 - Risk 3-dose series) HEPATITIS B (1 of 3 - Risk 3-dose series) [facility] Start: 2046 Hepatitis B Vaccine (1 of 3 - Risk 3-dose series) Hepatitis B Vaccine (1 of 3 - Risk 3-dose series) [facility] Start: 06-23-2029 Screening for malignant neoplasm of cervix Cervical Cancer Screening [facility] Start: 01-24-2029 Urine microalbumin profile [facility] Start: 09-28-2025 HPV TESTING HPV TESTING [facility] Start: 09-28-2025 PAP TESTING PAP TESTING [facility] Start: 09-28-2025 Screening for malignant neoplasm of cervix [facility] Start: 07-16-2025 Complete blood count Hemoglobin/Hematocrit [facility] Start: 07-16-2025 Creatinine measurement Serum Creatinine [facility] Start: 11-18-2024 End: 11-18-2024 US Pelvis PELVIC US [facility] Imaging Routine Ovarian cyst, left Expected: 11/18/2024, Expires: 11/18/2024 [facility] Work Phone: Comment on above: Expected: 11/18/2024, Expires: Start: 11-10-2024 Influenza vaccination Influenza Vaccine (Season Ended) [facility] Start: 08-31-[address] [facility] Start: 06-26-2024 DXA Bone [Mass/Area] Bone density [facility] Start: 06-23-2024 End: 06-23-2024 Patient encounter procedure 06/23/2024 1:20 PM EDT Office Visit OB/Gynecology [address] [place], [place] [id number] Caren Houser MD [address] [place] [address] ANNUAL OB/Gynecology Comment on above: ANNUAL Start: 05-28-2024 Creatinine measurement Serum Creatinine [facility] Start: 05-14-2024 Patient discharge [facility] Start: 05-13-2024 Admission procedure [facility] Start: 05-13-2024 Application of intermittent pneumatic compression device [facility] Start: 05-13-2024 Following clinical pathway protocol [facility] Start: 05-13-2024 Ambulation without limitation [facility] Start: 05-13-2024 Assessment of risk of venous thromboembolism [facility] Start: 05-13-2024 Insertion of catheter into peripheral vein [facility] Start: 05-13-2024 Providing care according to standard [facility] Start: 05-13-[address] [facility] Start: 05-13-2024 Admission procedure [facility] Start: 05-13-2024 Patient referral to dietitian [facility] Start: 04-10-2024 Patient referral [facility] Work Phone: Start: 04-10-2024 Evaluation of diagnostic study results [facility] Start: 03-08-[address] [facility] Start: 03-07-[address] [facility] Start: 02-29-2024 End: 02-29-[address] [facility] Start: 02-20-2024 End: 02-20-2024 Patient encounter procedure 02/20/2024 8:20 AM EST Office Visit OB/Gynecology [address] [place] [address] Caren Houser MD [address] [place] [address] ANNUAL OB/Gynecology Comment on above: ANNUAL Start: 02-07-[address] [facility] Start: 11-11-2023 Covid-19 Vaccine ( season) Covid-19 Vaccine ( season) [facility] Start: 11-11-2023 Covid-19 Vaccine ( season) Covid-19 Vaccine ( season) [facility] Start: 11-11-2023 Influenza vaccination Influenza Vaccine (#1) [facility] Start: 11-09-2023 End: 11-09-2023 ambulatory 11/09/2023 2:00 PM EDT Procedure OB/Gynecology [address] [place] [address] Ovarian cyst, left [N83.202] OB/Gynecology Comment on above: Ovarian cyst, left [N83.202] Start: 11-08-2023 End: 11-07-2024 US Pelvis PELVIC US [facility] Anc Imaging Routine Ovarian cyst, left Expected: 11/08/2023, Expires: 11/07/2024 [facility] Work Phone: Comment on above: Expected: 11/08/2023, Expires: 5 Start: 06-07-2023 SERUM CREATININE SERUM CREATININE [facility] Start: 05-29-2023 End: 08-28-2023 Cobalamin (Vitamin B12) [Mass/volume] in Serum or Plasma [facility] Work Phone: Comment on above: Expected: 05/29/2023, Expires: 4 Start: 05-29-2023 End: 08-28-2023 Thyrotropin [Units/volume] in Serum or Plasma [facility] Work Phone: Comment on above: Expected: 05/29/2023, Expires: 4 Start: 03-12-2023 Depression Assessment Depression Assessment [facility] Start: 11-10-2022 Covid-19 Vaccine () Covid-19 Vaccine () [facility] Start: 11-10-2022 Influenza vaccination [facility] Start: 06-04-2022 HEMOGLOBIN/HEMATOCRIT HEMOGLOBIN/HEMATOCRIT [facility] Start: 06-04-2022 SERUM CREATININE SERUM CREATININE [facility] Start: 03-12-2022 DEPRESSION ASSESSMENT DEPRESSION ASSESSMENT [facility] Start: 01-23-2022 End: 01-19-2023 25-hydroxyvitamin D3 [Mass/volume] in Serum or Plasma VITAMIN D 25 HYDROXY Lab Routine Stage 3 chronic kidney disease, unspecified whether stage 3a or 3b CKD (HCC) Vitamin D deficiency Expected: 01/23/2022, Expires: 01/19/2023 [facility] Work Phone: Comment on above: Expected: 01/23/2022, Expires: 3 Start: 01-23-2022 End: 01-19-2023 CBC W Auto Differential panel - Blood CBC + DIFF Lab Routine Stage 3 chronic kidney disease, unspecified whether stage 3a or 3b CKD (HCC) Vitamin D deficiency Expected: 01/23/2022, Expires: 01/19/2023 [facility] Work Phone: Comment on above: Expected: 01/23/2022, Expires: 3 Start: 01-23-2022 End: 01-19-2023 Parathyrin.intact [Mass/volume] in Serum or Plasma PTH INTACT BLD Lab Routine Stage 3 chronic kidney disease, unspecified whether stage 3a or 3b CKD (HCC) Vitamin D deficiency Expected: 01/23/2022, Expires: 01/19/2023 [facility] Work Phone: Comment on above: Expected: 01/23/2022, Expires: 3 Start: 01-23-2022 End: 01-19-2023 Protein/Creatinine [Mass Ratio] in Urine PROTEIN CREATININE RATIO Lab Routine Stage 3 chronic kidney disease, unspecified whether stage 3a or 3b CKD (HCC) Vitamin D deficiency Expected: 01/23/2022, Expires: 01/19/2023 [facility] Work Phone: Comment on above: Expected: 01/23/2022, Expires: 3 Start: 01-23-2022 End: 01-19-2023 Renal function 2000 panel - Serum or Plasma RENAL FUNCTION PANEL Lab Routine Stage 3 chronic kidney disease, unspecified whether stage 3a or 3b CKD (HCC) Vitamin D deficiency Expected: 01/23/2022, Expires: 01/19/2023 [facility] Work Phone: Comment on above: Expected: 01/23/2022, Expires: 3 Start: 01-23-2022 End: 01-19-2023 Urinalysis complete panel - Urine URINALYSIS WITH MICROSCOPIC, REFLEX CULTURE Lab Routine Stage 3 chronic kidney disease, unspecified whether stage 3a or 3b CKD (HCC) Vitamin D deficiency Expected: 01/23/2022, Expires: 01/19/2023 [facility] Work Phone: Comment on above: Expected: 01/23/2022, Expires: 3 Start: 11-10-2021 Influenza vaccination INFLUENZA (#1) [facility] Start: 09-07-[address] [facility] Work Phone: Start: 09-06-2021 End: 11-06-2021 VITAMIN D 25 HYDROXY VITAMIN D 25 HYDROXY Lab Routine Hypovitaminosis D Expected: 09/06/2021 (Approximate), Expires: 11/06/2021 [facility] Work Phone: Comment on above: Expected: 09/06/2021 (Approximate), Expi res: 11/06/2021 Start: 06-07-2021 Adult depression screening assessment DEPRESSION SCREENING [facility] Start: 06-07-2021 ANNUAL PCP TEAM CHRONIC DISEASE VISIT ANNUAL PCP TEAM CHRONIC DISEASE VISIT [facility] Start: 06-06-2021 End: 08-06-2021 Basic metabolic 2000 panel - Serum or Plasma [facility] Work Phone: Comment on above: Expected: 06/06/2021, Expires: 2 Start: 06-06-2021 End: 08-06-2021 CBC panel - Blood by Automated count CBC Lab Routine Crohn's disease of small and large intestines with complication (HCC) Expected: 06/06/2021, Expires: 08/06/2021 [facility] Work Phone: Comment on above: Expected: 06/06/2021, Expires: 2 Start: 06-06-2021 End: 08-06-2021 Chronic hepatitis differentiation between hepatitis B and C virus panel - Serum or Plasma HEP REMOTE PANEL BL Lab Routine Crohn's disease of small and large intestines with complication (HCC) Expected: 06/06/2021, Expires: 08/06/2021 [facility] Work Phone: Comment on above: Expected: 06/06/2021, Expires: 2 Start: 04-25-2021 COVID-19 VACCINE (4 - Booster for Moderna series) COVID-19 VACCINE (4 - Booster for Moderna series) [facility] Start: 04-25-2021 COVID-19 VACCINE (4 - Moderna series) COVID-19 VACCINE (4 - Moderna series) [facility] Start: 03-12-2021 DEPRESSION ASSESSMENT DEPRESSION ASSESSMENT [facility] Start: 01-20-2011 PNEUMOCOCCAL (2 - PCV) PNEUMOCOCCAL (2 - PCV) [facility] Start: 01-20-2011 Pneumococcal vaccination Pneumococcal Vaccine (2 of 2 - PCV) [facility] Start: 2005 HEPATITIS A (1 of 2 - Risk 2-dose series) HEPATITIS A (1 of 2 - Risk 2-dose series) [facility] Start: 2005 Hepatitis A Vaccine (1 of 2 - Risk 2-dose series) Hepatitis A Vaccine (1 of 2 - Risk 2-dose series) [facility] Start: 2005 HEPATITIS B (1 of 3 - Risk 3-dose series) HEPATITIS B (1 of 3 - Risk 3-dose series) [facility] Start: 2005 Hepatitis B Vaccine (1 of 3 - 19+ 3-dose series) Hepatitis B Vaccine (1 of 3 - 19+ 3-dose series) [facility] Start: 2004 Anxiety Screening Anxiety Screening [facility] Start: 2004 Depression Screening Depression Screening [facility] Start: 2004 MMR (1 of 2 - Risk 2-dose series) MMR (1 of 2 - Risk 2-dose series) [facility] Start: 2004 MMR Vaccine (1 of 2 - Risk 2-dose series) MMR Vaccine (1 of 2 - Risk 2-dose series) [facility] Start: 1996 Meningococcal B Vaccine: Consider Based On Risk (1 of 4 - Increased Risk) Meningococcal B Vaccine: Consider Based On Risk (1 of 4 - Increased Risk) [facility] Start: 1996 MENINGOCOCCAL B: Consider based on risk (1 of 4 - Increased Risk Bexsero 2-dose series) MENINGOCOCCAL B: Consider based on risk (1 of 4 - Increased Risk Bexsero 2-dose series) [facility] Start: 1996 MENINGOCOCCAL B: Consider based on risk (1 of 4 - Increased Risk) MENINGOCOCCAL B: Consider based on risk (1 of 4 - Increased Risk) [facility] Start: 12-16-1987 HEPATITIS A (1 of 2 - Risk 2-dose series) HEPATITIS A (1 of 2 - Risk 2-dose series) [facility] Bacteria identified in Urine by Culture Urine Culture [facility] Work Phone: Bacteria identified in Urine by Culture URINE CULTURE Microbiology Routine Urinary frequency Burning with urination Ordered: 01/18/2022 [facility] Work Phone: Comment on above: Ordered: 01/18/2022 BACTERIAL VAGINOSIS AMPLIFICATION BACTERIAL VAGINOSIS AMPLIFICATION Lab Routine Vaginal itching 09/26/2021 3:52 PM EDT [facility] Work Phone: BACTERIAL VAGINOSIS AMPLIFICATION BACTERIAL VAGINOSIS AMPLIFICATION Lab Routine Vaginal discharge Ordered: 10/26/2021 [facility] Work Phone: Comment on above: Ordered: 10/26/2021 SOLOMON / TRICHOMONA S AMPLIFICATION SOLOMON / TRICHOMONAS AMPLIFICATION Lab Routine Vaginal itching 09/26/2021 3:52 PM EDT [facility] Work Phone: SOLOMON / TRICHOMONA S AMPLIFICATION SOLOMON / TRICHOMONAS AMPLIFICATION Lab Routine Vaginal discharge Ordered: 10/26/2021 [facility] Work Phone: Comment on above: Ordered: 10/26/2021 Corticotropin [Mass/ volume] in Plasma [facility] Cortisol [Mass/volum e] in Serum or Plasma [facility] Dehydroepiandrostero ne sulfate (DHEA-S) [Mass/volume] in Serum or Plasma [facility] DXA Bone [Mass/Area] Bone density [facility] End: 12-07-2024 MR Pelvis WO and W contrast IV MRI FEMALE PELVIS WO/W IVCON Radiology Routine Other intra-abdominal and pelvic swelling, mass and lump 1 Occurrences starting 11/08/2023 until 12/07/2024 [facility] Comment on above: 1 Occurrences starting 11/08/2023 until 12/07/2024 MRI of small intestine [facility] MRI of small intestine [facility] PAP TEST PAP TEST Lab Mandi anaya Encounter for screening for malignant neoplasm of cervix Special screening examination for human papillomavirus (HPV) Ordered: 06/23/2024 [facility] Work Phone: Comment on above: Ordered: 06/23/2024 Patient Education [facility] Work Phone: Patient referral [facility] Work Phone: SURGICAL PATHOLOGY SURGICAL PATH OLOGY Lab Routine Vulvar itching 09/26/2021 3:52 PM EDT [facility] Work Phone: Tilt table test [facility] Immunizations Immunization Date Immunization Notes Care Provider Hernan ward 02-28-2021 Covid (Moderna) Dr. Chad Coleman DO Work Phone: [facility] 01-26-2021 Seasonal, quadrivale nt, recombinant, injectable influenza vaccine, preservative free Fidencio Pendkaren [employer]PERVIS[employer] Work Phone: [facility] 01-26-2021 influenza virus vacc ine, unspecified formulation Caren Shine MD Work Phone: [facility] 05-21-2020 COVID-19 vaccine, fu ll dose (MODERNA) Darin Cormier MD Work Phone: [facility] Work Phone: 04-23-2020 COVID-19 vaccine, fu ll dose (MODERNA) Darin Cormier MD Work Phone: [facility] 01-22-2020 Seasonal, quadrivale nt, recombinant, injectable influenza vaccine, preservative free Fidencio Pendkraen [employer].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 Chad Coleman DO Work Phone: [facility] 01-24-2019 tetanus toxoid, redu jordan diphtheria toxoid, and acellular pertussis vaccine, adsorbed Darin Cormier MD Work Phone: [facility] 01-20-2010 influenza virus vacc ine, unspecified formulation Darin Cormier MD Work Phone: [facility] 01-20-2010 pneumococcal polysaccharide vaccine, 23 valent Darin Cormier MD Work Phone: [facility] Payers Date Payer Category Payer Self-pay [id number] 2023 Self-pay [id number] 2021 Private Health Insurance [facility] CHOICE PLUS [id number] 2021-Present [phone] [address] [place] [address] O [id number] 2021 Unknown [id number] 2019 Private Health Insurance [facility] CHOICE PLUS [id number] 2019-Present [phone] [address] [address] [place] [address] O [id number]. [id number] 2019 Private Health Insurance [id number]. [id number] Unknown [id number] Unknown [facility] DAINA [id number] Unknown [id number] 2.16.840.1.510758.3.579.2. 462 Unknown [id number] 2.16.840.1.811683.3.579.2. 462 Unknown [id number] 2.16.840.1.911714.3.579.2. 462 Unknown [id number] 2.16.840.1.204561.3.579.2. 462 Unknown [id number] 2.16.840.1.377522.3.579.2. 462 Unknown [id number] 2.16.840.1.019985.3.579.2. 462 Unknown [id number] 2.16.840.1.494703.3.579.2. 462 Unknown [id number] 2.16.840.1.414813.3.579.2. 462 Unknown [id number] 2.840.1.348676.3.579.2. 462 Unknown [id number] 2.16.840.1.596708.3.579.2. 462 Unknown [id number] 2.16.840.1.136499.3.579.2. 462 Unknown [id number] 2.16.840.1.414089.3.579.2. 462 Unknown [id number] 2.16.840.1.173620.3.579.2. 462 Unknown [id number] 2.16.840.1.600670.3.579.2. 462 Unknown [id number] 2.16.840.1.302412.3.579.2. 462 Unknown [id number] 2.16.840.1.039236.3.579.2. 462 Unknown [id number] 2.16.840.1.533349.3.579.2. 462 Unknown [id number] 2.16.840.1.598352.3.579.2. 462 Unknown [id number] 2.16.840.1.898288.3.579.2. 462 Unknown [id number] 2.16.840.1.515926.3.579.2. 462 Unknown [id number] 2.16.840.1.602998.3.579.2. 462 Unknown [id number] 2.16.840.1.199152.3.579.2. 462 Unknown [id number] 2.16.840.1.871031.3.579.2. 462 Unknown [id number] 2.16.840.1.544740.3.579.2. 462 Unknown [id number] 2.16.840.1.301248.3.579.2. 462 Unknown [id number] 2.16.840.1.736047.3.579.2. 462 Unknown [id number] 2.16.840.1.160450.3.579.2. 462 Unknown [id number] 2.16.840.1.054429.3.579.2. 462 Unknown [id number] 2.16.840.1.342595.3.579.2. 462 Unknown [id number] 2.16.840.1.779391.3.579.2. 462 Unknown [id number] 2.16.840.1.134637.3.579.2. 462 Unknown [id number] 2.16.840.1.595058.3.579.2. 462 Unknown [id number] 2.16840.1.091432.3.579.2. 462 Unknown [id number] 2.16840.1.023491.3.579.2. 462 Social History Date Type Detail Facility Start: 10-26-2021 End: 08-31-2024 Tobacco smoking status NHIS Never smoked tobacco [facility] Start: 06-04-2021 End: 06-23-2024 Alcohol intake Ex-drinker (finding) [facility] Start: 01-27-2019 End: 09-24-2019 History SDOH Alcohol Frequency 2 [facility] Start: 01-27-2019 End: 09-24-2019 History SDOH Alcohol Std Drinks 1 [facility] Start: 05-25-2020 History SDOH Alcohol Comment very rarely, none for one year 05/25/20 [facility] Start: 01-27-2019 History SDOH Social Connections Phone 5 [facility] Start: 01-27-2019 History SDOH Social Connections Get Together 3 [facility] Start: 01-27-2019 History SDOH Physica l Activity DPW 0 [facility] Start: 09-24-2019 History SDOH Financial 4 [facility] Start: 01-26-2019 Education 17 [facility] Start: 1985 Sex Assigned At Female C [facility] Start: 02-14-2020 End: 01-18-2022 Exposure to SARS-CoV-2 (event) Not sure [facility] Start: 09-07-2021 Tobacco smoking stat [facility] Unknown if ever smoked [facility] Work Phone: Start: 07-23-2018 Rare [facility] Start: 07-23-2018 Spouse/ Signif icant Other [facility] Start: 10-26-2021 Tobacco use and exposure Smokeless tobacco non-user [facility] Work Phone: Start: 01-26-2019 End: 05-29-2023 History of Social function [facility] Start: 01-26-2019 End: 05-29-2023 Social connection and isolation panel [facility] Do you belong to any clubs or organizations such as episcopalian groups, unions, fraternal or athletic groups, or school groups? Yes [facility] Are you now , , , , never or living with a partner? [facility] How often to you hav e a drink containing alcohol? Monthly or less [facility] How many standard drinks containing alcohol do you have on a typical day? 1 or 2 [facility] How often do you hav e 6 or more drinks on 1 occasion? Never [facility] How hard is it for y ou to pay for the very basics like food, housing, medical care, and heating Not very hard [facility] Work Phone: Adult Depression Screening Assessment 0 [facility] Do you feel stress - tense, restless, nervous, or anxious, or unable to sleep at night because your mind is troubled all the time - these days [OSQ] Not at all [facility] (I/We) worried whemelly er (my/our) food would run out before (I/we) got money to buy more. Never true [facility] Work Phone: Start: 04-17-2020 Gender identity Identifies as female gender (finding) [facility] Start: 04-17-2020 Sexual orientation Heterosexual (fin ding) [facility] Start: 03-15-2020 Alcoholic beverage intake Current drinker of alcohol (finding) [facility] Start: 09-13-2017 Alcohol Comment [facility] Start: 05-25-2024 End: 06-08-2024 Sex Female (finding) [facility] NEGATED: Highlighted row Not [facility] Medical Equipment Procedure Code Equipment Code Equipment Origin al Text Equipment Identifier Dates [id number] Implant - [id number] Start: 09-14-2010 Comment on above: Description: elio dual lumen cv catheter Goals Date Patient Goal Desired Activity /State Functional Status Date Assessment Result Facility 05-14-2024 Functional status Activity Abili ty Independent [facility] Work Phone: 05-13-2024 Functional status Ambulates;Up ad mg [facility] Work Phone: 05-29-2020 Are you deaf, or do you have serious difficulty hearing No 05/29/2020 9:30 AM Bere Calhoun RN No [facility] 05-29-2020 Are you blind, or do you have serious difficulty seeing, even when wearing glasses No 05/29/2020 9:30 AM Bere Calhoun, PURA No [facility] 05-29-2020 Do you have serious difficulty walking or climbing stairs No 05/29/2020 9:30 AM Bere Calhoun, PURA No [facility] 05-29-2020 Do you have difficul ty dressing or bathing No 05/29/2020 9:30 AM Bere Calhoun, PURA No [facility] 05-29-2020 Because of a physica l, mental, or emotional condition, do you have difficulty doing errands alone such as visiting a physician's office or shopping No 05/29/2020 9:30 AM EDT Bere Grant RN No [facility] Mental Status Date Assessment Result Facility 05-14-2024 Cognitive function Voice/Name [facility] Work Phone: 05-29-2020 Because of a physica l, mental, or emotional condition, do you have serious difficulty concentrating, remembering, or making decisions No 05/29/2020 9:30 AM EDT Bere Grant RN No [facility] Clinical Notes 03-15-2020 to 08-31-2024 Note Date & Type Note Facility 08-31-2024 Discharge summary [facility] 08-31-2024 Discharge summary Note Date/Time August 31, 2024 9:05pm [facility] [address] [place] [address] Emergency Department Summary 08/31/24 MR#: [id number] Acct: [id number] Name: PHILIPPE RG Rep #:[id number] : 1985 38 From: Rudi Chiu MD PCP: SHASTA Fuentes Status:REG ER Location: ED HPI History of Present Illness Chief Complaint: Nausea/Vomiting Detail of Chief Complaint: Nausea without vomiting Informant: patient Onset/Context/Timing Onset: Today Context: Sudden Onset Timing: Continuous Quality: Nausea Location: Queasy feeling abdomen Current Severity: Mild Maximum Severity: Moderate Worsened by: Nothing specific Relieved by: Nothing Associated Symptoms Associated Symptoms: Thirsty and concerned she is dehydrated Narrative Narrative: Patient is a 38-year-old female. She only weighs 32.9 kg. She has a past medical history of cholecystectomy due to Crohn's. POTS, chronic kidney disease, low blood pressure, thyroid cancer and adrenal insufficiency. She has been able to take her fluorinated steroid. She states this is for her POTS. She is on levothyroxine for hypothyroidism she is presently on no steroids. Patient states she was out in the sun yesterday for a long time. She may be a little dehydrated. She denies headache. Visual, ocular, or auditory symptoms. She does endorse dry mouth. She denies cardiorespiratory symptoms. She denies abdominal pain. Denies vomiting, diarrhea or constipation. She has a colostomy. She has no noted blood or black stool. Prior similar symptoms: Yes (Patient was seen May for GI symptoms with kidney disease. She was in Feb) Recent Illness/Hospitalization: No PFSH PFSH Medical History Adrenal insufficiency Metabolic acidosis Pharyngitis POTS (postural orthostatic tachycardia syndrome) Acute upper respiratory infection Vitamin D deficiency Underweight Palpitations Non-traumatic compression fracture of vertebra Cholelithiasis Ileostomy in place Anemia Thyroid cancer Home Medications ?Medication ?Instructions ?Recorded ?Last Taken ?Type cholecalciferol (vitamin D3) 10 10 mcg PO DAILY Unknown History mcg (400 unit) capsule magnesium 200 mg tablet 200 mg PO DAILY 10/17/23 Unk nown History promethazine 25 mg tablet 25 mg PO TID PRN nausea and 10/17/23 Unknown Rx vomiting #21 tabs vitamin B complex 1 tab PO QDAY 04/07/24 Unkno wn History sodium bicarbonate 650 mg tablet 650 mg PO TID 1 week #21 tabs 05/14/24 Unknown Rx ondansetron 4 mg disintegrating 4 mg PO TID PRN nausea and 05/15/24 Unknown Rx tablet vomiting #21 tabs fludrocortisone 0.1 mg tablet 0.1 mg PO BID #60 tabs 0 06/04/24 Unknown Rx levothyroxine 25 mcg tablet 25 mcg PO DAILY 30 days #9 0 tabs 06/06/24 Unknown Rx ivabradine 5 mg tablet 2.5 mg (1/2 x 5 mg) PO .COMP LU 06/19/24 Unknown Rx #90 tabs Allergy/AdvReac Type Severity Reaction Status Date / Time adhesive tape Allergy Intermediate Rash Verified 08/31/24 18:51 infliximab Allergy Intermediate Shortness Verified 08/31/24 18:51 of breath adalimumab (From Humira) Allergy NEEDS Verified 08/31/24 18:51 FOLLOW-UP vancomycin Allergy Anaphylaxis Verified 08/31/24 18:51 Family History Father Hypertension Grandmother Colon cancer Osteoporosis Grandfather Cancer Grandfather Cancer Surgical History Hx of ileostomy History of cholecystectomy H/O thyroidectomy Social History adopted: No household members: spouse and children pets and animals: Yes (3 dogs) pets and animals: dog(s) Smoking Status: Never smoker Electronic Cigarette Use: not used second hand exposure: No alcohol intake: current alcohol intake frequency: holidays/special occasions only substance use type: does not use diet: other what type of physical activity do you participate in: walking and running frequency: 5-6 times per week seatbelt use: always do you feel safe at home: Yes ROS ROS ED Constitutional Constitutional ED: Denies chills, fever(s), subjective, sweats or weight loss Eyes Eyes: Denies blurry vision or change in vision ENT ENT ED: Denies rhinorrhea or sore throat Cardiovascular Cardiovascular: Denies chest pain or palpitations Respiratory/Chest Respiratory/Chest: Denies cough, dyspnea or dyspnea on exertion Gastrointestinal Gastrointestinal: Reports abdominal pain and nausea; Denies constipation, diarrhea, melena or vomiting Genitourinary Genitourinary ED: Denies dysuria, hematuria or urinary frequency Musculoskeletal Musculoskeletal: Denies arthralgias or myalgias Integumentary Denies rash Neurologic Neurologic: Reports weakness; Denies headache(s) Hematologic/Lymphatic Hematologic/Lymphatic: Reports systems reviewed and no addt'l complaints, exceptas documented EXAM Physical Exam Const Vital Signs: 08/31/24 18:51 08/31/24 19:51 Temperature 97.7 F L Temperature Source Oral Pulse Rate 115 H Pulse Rate [Lying] 81 Pulse Rate [Sitting (for 1 minute prior to obtaining)] 78 Pulse Rate [Standing (for 1 minute prior to obtaining)] 95 Respiratory Rate 18 Blood Pressure 89/67 L Blood Pressure [Lying] 92/63 Blood Pressure [Sitting (for 1 minute prior to obtaining)] 103/73 Blood Pressure [Standing (for 1 minute prior to obtaining)] 95/74 Blood Pressure Mean 74 Blood Pressure Mean [Lying] 72 Blood Pressure Mean [Sitting (for 1 minute prior to obtaining)] 83 Blood Pressure Mean [Standing (for 1 minute prior to obtaining)] 81 Pulse Ox 99 Oxygen Delivery Method Room Air Positive well nourished and well developed General Appearance ED: well developed and NAD; Negative for cyanotic, diaphoretic or pallor HEENT Reports dry mucous membranes HEENT Narrative: Petite 38-year-old. Head is atraumatic, cephalic. Ears normal. Nares patent. Posterior pharynx was normal. Mouth ED: Yes dry mucous membranes Mouth: dry mucous membranes Eyes PERRL and EOMs intact bilaterally General Eye ED: Negative for pale conjunctiva Neck no lymphadenopathy, supple and no JVD Resp normal respiratory effort and clear to auscultation bilaterally Cardio regular rhythm, S1 normal heart sound, S2 normal heart sound and no murmurs Rate: tachycardic GI GI Narrative: Abdomen is tympanitic. There is no tenderness. Bowel sounds are diminished. Colostomy/ileostomy noted left lower quadrant Auscultation: hypoactive bowel sounds Palpation: soft Back/Spine no CVA tenderness Extremity normal to inspection General Extremety ED: Negative for edema or tenderness General Extremity: Negative for edema Neuro oriented x3 and CN's II-XII intact bilaterally Sensorium / Orientation: alert Psych Mood & Affect: tearful Skin no rashes or lesions noted, no wounds and skin turgor normal General Skin Exam: Negative for jaundice or pallor MDM MDM MDM Narrative Medical decision making narrative: In light of patient's past medical history obtain electrolytes to assess for hyponatremia, hyperkalemia, renal function and glucose. CBC to assess H&H. Based on her weight she will receive a 500 cc bolus of normal saline and Zofran for her nausea. History & Record Review Additional record(s) reviewed:: Prior ED visit (Documented in the HPI narrative)and Prior labs Lab Data Labs: Laboratory Results - last 24 hr 08/31/24 19:14 Sodium 130 L Potassium 5.6 H Chloride 90 L Carbon Dioxide 21.9 Anion Gap 19 H BUN 40 H Creatinine 2.88 H Estim Creat Clear Calc 13.90 L Est GFR (MDRD) Non-Af 21 L BUN/Creatinine Ratio 13.9 Glucose 106 H Calcium 9.9 Patient's sodium is low at 130. Potassium is elevated however it hemolyzed. BUN and creatinine are elevated from baseline at 40 and 2.8. Treatment and Re-Evaluation :: Patient was informed recommendation is admission. She states she had a bad experience. She did not like the physician that admitted. The same physicians on-call this evening. She asked if I would give her additional fluids and arrange for outpatient blood testing. Spoke with nurse practitioner Francisco Javier for the [facility]. Plan is repeat [facility] Sunday. They will follow-up the results and talk with Philippe. An additional liter was ordered. Patient was told to take the same amount of bicarb as normal. Increase her sodium intake and encourage more fluids. And to drink significantly more fluidsif she goes out in the hot weather Discharge Plan Triage Chief Complaint: Nausea/Vomiting ED Provider: Rudi Chiu Dx/Rx/DC Orders Clinical Impression: Acute kidney injury, POTS (postural orthostatic tachycardia syndrome), Acute dehydration, Acute hyponatremia, High anion gap, Low blood pressure, History of Crohn's disease Instructions: ED Renal Insufficiency Prescriptions: No Action cholecalciferol (vitamin D3) 10 mcg (400 unit) capsule 10 mcg PO DAILY vitamin B complex Tablet 1 tab PO QDAY ondansetron 4 mg tablet,disintegrating 4 mg PO TID PRN (Reason: nausea and vomiting) Qty: 21 0RF magnesium 200 mg tablet 200 mg PO DAILY promethazine 25 mg tablet 25 mg PO TID PRN (Reason: nausea and vomiting) Qty: 21 0RF sodium bicarbonate 650 mg Tablet 650 mg PO TID 7 Days Qty: 21 0RF fludrocortisone 0.1 mg tablet 0.1 mg PO BID Qty: 60 3RF levothyroxine 25 mcg tablet 25 mcg PO DAILY 30 Days Qty: 90 1RF Patient Comments: Take 1 tablet by mouth DAILY (6 AM). ivabradine 5 mg tablet 2.5 mg PO .COMPLEX Qty: 90 3RF Rx Instructions: 2.5 mg orally; must administer with a meal/food, 5mg in AM and 2.5mg in PM Primary Care Provider: Antonio Roman Referrals: Antonio Roman PA [Primary Care Provider] - 2 Days Activity Restrictions/Additional Instructions: 1. Go to outpatient lab for blood test in the morning. Results will be called to your provider Sebas Ashley nurse practitioner. 2. You need to increase your fluid intake 3. You need to increase your salt tablets Print Language: Ukrainian Disposition Disposition: Home, Self Care What to do if you have Problems For any increased pain, shortness of breath, bleeding, nausea or vomiting, chestpain, or any unexpected problems, contact your Primary Care Provider. Call [facility] ([phone]) or report to the closest Emergency Room. Call 911 if necessary. 08/31/242104 <Electronically signed by Rudi Chiu MD> Cosigner Signature (if applicable): CC: SHASTA Fuentes ~ Signed [facility] Work Phone: 1(555) 871-251206-22-2025 Hospital Discharge instructions Additional Instructions 1. Go to outpatient lab for blood test in the morning. Results will be called to your provider Sebas Ashley nurse practitioner. 2. You need to increase your fluid intake 3. You need to increase your salt tabletsWM[facility] Work Phone: 1(337) 196-409105-07-2025 NoteHNO ID: [id number] Author: ROCIO BARRIENTOS, ? Service: Pharmacy Author Type: Lodge Officer Type: Plan of Care Filed: 07/16/2024 17:56 Note Text: Insurance investigation completed Patient has active prescription insurance: Yes - Patient's insurance is in-network with [facility] Insurance loaded into [employer]: Yes Test claim was completed to verify insurance is active: Successful Any questions, please reach out to your medication patient access coordinator.[facility]05-07-2025 NoteHNO ID: [id number] Author: ROCIO BARRIENTOS, ? Service: Pharmacy Author Type: Lodge Officer Type: Plan of Care Filed: 07/16/2024 17:56 Note Text: PHARMACY BEDSIDE DELIVERY SERVICE Patient Name: Philippe Rg The marked outpatient medications were Filled at: [facility] and delivered to the patient's [...] Provider. Rocio Barrientos July 16, 2024 4:06 [facility]05-06-2025 NoteBorderline elevated. Re-evaluation in 4-6 weeks is recommended if clinically indicated.[facility] on above:Order Comment: Specimen Type: BLOOD SPECIMEN Ordering Facility: [facility] Address: [address] [place], [place] [address]Result Comment: Interpretation: <50.0 ug/g: Normal 50.0 ug/g - 120.0 ug/g: Borderline elevated. Re-evaluation in 4-6 weeks is recommended if clinically indicated. >120.0 ug/g: ElevatedPerformed By: #### [id number], [id number] #### [facility] CLIA [id number] [address] [place] [address]05-06-2025 NoteHNO ID: [id number] Author: CLAY RESTREPO RDMS Service: Radiology Author [...] PATIENT PRESENTS WITH AN IMPLANTABLE OR ATTACHED SEDIMENTATIONIST: No RADIOLOGY DEPARTMENT: Ultrasound PERIPHERAL IV DATA: Not applicable SIGNED BY: Clay Restrepo RDMS July 15, 2024 3:09 [facility]05-06-2025 NoteHNO ID: [id number] Author: LESLY GONZÁLES RN Service: Care Management Author Type: Registered Nurse Type: Care Mgt Initial Assessment Filed: 07/15/2024 14:12 Note Text: CARE MANAGEMENT: ASSESSMENT AND DISCHARGE PLAN SERVICE DATE: July 15, 2024 SERVICE TIME: 2:11 PM PCP: No primary care provider on file. Primary Contact: Extended Emergency Contact Information Primary Emergency Contact: Robby Rg Address: [address] [place] [address] Mobile Relation: Spouse Admission Status: Inpatient Insurance Provider: [facility] Discharge Planning requested by: Per Department Practice Potential Transition Plans Home Advance Directives Current Advance Directive: None Fur Finisher Attempted to Assist with AD Completion: No [...] Be able to go home, General wellness [place] of Choice Explained: [place] of Choice Given: No Reason Not Given: [...] Discharge: To Be Determined Post-Acute Discharge Plan: Delivery SpecialistFbi Profiler Anticipated Medical Plan of Care: TBD Medical [...] free lunch while waiting, if applicable. An legal research analyst is also available to pts in the dc lounge. The lounge is not suitable for patients who require medication, isolation or treatment between discharge and pickup as well as those individuals with disruptive behavior or bladder/bowel incontinence. Dc Lounge Hours: M-F [id number]; for a weekend dc or dc after-hours Red Coat Attendants are available to assist. If your pt is eligible to utilize the dc lounge, please make pt aware that waiting in the dc lounge is the new standard of care at [facility] and place the order prior to dc. SIGNATURE: Lesly Gonzáles RN PATIENT NAME: Philippe Rg DATE: July 15, 2024 TIME: 2:11 [facility]05-06-2025 NoteHNO ID: [id number] Author: KATLYN NORTON [facility] Service: Pharmacy Author Type: Pharmacist Type: Plan of Care Filed: 07/15/2024 13:12 Note Text: PHARMACY MEDICATION REVIEW Patient Name: Philippe Rg : 1985 The following medications were updated within the TURBINE OPERATOR medication list: Medications ADDED to TURBINE OPERATOR medication list Salt tabs, sodium bicarbonate, magnesium complex Medications CHANGED on TURBINE OPERATOR medication list potassium chloride Medications REMOVED from TURBINE OPERATOR medication list prednisone Additional comments: Patient takes [...] discharge? Unable to assess Preferred outpatient pharmacy: [id number] [place] [address] [address] [facility] [phone] [id number] [place] [address] [address] [facility] [phone] [id number] Allergies: Adhesive Tape (Deja* Rash Comment:[facility] Adhesive- (most adhesive tape causes rash) tolerates versaderm in IV securement kit Gluten Other: See Comments Comment:Rash, nausea, GI symptoms Humira [Adalimumab] Intolerance Iron Intolerance Comment:per pt- can take, but only very small dose. (IV Iron only causes issues.) Remicade [Inflixima* Shortness of Breath Vancomycin Rash Comment:Per Dr. Asad Garcia to Allergy List - Rash Prior to [...] once daily. Facility-Administered Medications: None Katlyn Norton [facility] 07/15/2024[facility]04-14-2025 History of Present illness Narrative* Caren Houser MD - 06/23/2024 1:20 PM EDT Images from the original note were not included. Obstetrics and Gynecology [place] Annual Exam Subjective Recording using [employer] software for draft documentation of the visit was discussed with the patient/authorized abrasives sales representative; all questions welcomed and answered. Patient/authorized abrasives sales representative agreed to proceed Vacuum Filter Operator: declined CHIEF COMPLAINT: Annual and pain from [...] Ectopic0 Multiple0 Live Births0 Comment: Surrogate-2 child Lining Inserter History LMP: 06/20/2024 (Exact Date), Having periods Age at Menarche: Age at First : Age at Menopause: Lining Inserter History Comments: Sexual Activity: Yes; Male Contraception: [...] Rash Screening tools reviewed and discussed with patient-LIFE SUPPORT TECHNICIAN history questions. Please see Patient Entered Data. [...] discussed with the Patient or Patient's Authorized Remote Sensing Technician. As applicable, any other physician, advance practice provider, medical student, or other health professional student that will be observing or involved in the sensitive examination for educational or training purposes was discussed with the Patient or Authorized Remote Sensing Technician. The Patient or Authorized Remote Sensing Technician has agreed to proceed with the sensitive [...] associated with a left ovarian cyst, particularly post-menstruation.No other new gynecological concerns reported. - Performed [...] associated with a left ovarian cyst, particularly post-menstruation.No other new gynecological concerns reported. - Discussed potential for cyst rupture or torsion and advised seeking immediate care at a tertiary center if severe pain, nausea, or vomiting occurs. - Recommended follow-up ultrasound to monitor the cyst if symptoms worsen. - Discussed referral to a minimally invasive surgeon if surgical intervention becomes necessary. Caren Ospina MD documented in this [facility]04-14-2025 NoteHNO ID: [id number] Author: CAREN HOUSER MD Service: ? Author Type: Physician Type: Progress Notes Filed: 06/23/2024 14:16 Note Text: Obstetrics and Gynecology [place] Annual Exam Subjective Recording using [employer] software for draft documentation of the visit was discussed with the patient/authorized abrasives sales representative; all questions welcomed and answered. Patient/authorized abrasives sales representative agreed to proceed Vacuum Filter Operator: declined CHIEF COMPLAINT: Annual and pain from [...] Ectopic0 Multiple0 Live Births0 Comment: Surrogate-2 child Lining Inserter History LMP: 06/20/2024 (Exact Date), Having periods Age at Menarche: Age at First : Age at Menopause: Lining Inserter History Comments: Sexual Activity: Yes; Male Contraception: [...] matthew for drug/alcohol abu (more content not included)...[facility]03-05-2025 [facility]03-04-2025 Evaluation note* Diagnosis Onset Date Resolution Status Admit Date Celiac disease acute May 13, 2024 1:53am Hyponatremia acute May 13, 025 1:53am CKD (chronic kidney disease) chronic May 13, 2024 1:53am Crohn's disease chronic May 1:53am POTS (postural orthostatic tachycardia syndrome) chronic May 13, 2024 1:53am Metabolic acidosis inactive May 13, 2024 1:53am Pharyngitis inactive May 13 1:53am Crohn's disease acute May 8:52am Chronic diarrhea chronic May 8:52am Electrolyte abnormality acute 2024 7:47am Chronic diarrhea chronic May 282024 7:47am POTS (postural orthostatic tachycardia syndrome) chronic May 7:47am Adrenal insufficiency chronic May 9:30am Low blood pressure chronic June 03, 2024 9:30am Osteoporosis chronic June 03, 2024 9:30am Thyroid cancer chronic May 9:30am [facility] Work Phone: 1(786) 406-655803-04-2025 [facility]12-26-2024 NoteHNO ID: [id number] Author: FIDENCIO MCPHERSON APRN.CNP Service: ? Author Type: Nurse Practitioner Type: [...] understand agrees plan of care. Fidencio Mcpherson APRN.CNPUniversity [facility]als [facility]12-26-2024 History of Present illness Narrative* Fidencio Mcpherson APRN.CNP - 03/06/2024 6:30 PM EST Nontoxic-appearing female presents urgent care chief complaint elevated heart rate. Duration of symptoms ongoing for the last week. States was recently diagnosed with POTS. Was supposed to be on beta-jared. Unable to get a hold of PCP today. Heart rates been 140s and 150s. Is slightly fatigued feeling. I instructed patient we are unable to prescribe medications such as beta-blockers through theurgent care. Referred patient to ED. Verbalized understand agrees plan of care. Fidencio Mcpherson APRN.ART documented in this encounterHenry [facility]12-12-2024 Evaluation note* Diagnosis Onset Date Resolution Status Admit Date Acute upper respiratory infection resolved February 20 1:30pm Celiac disease acute February 102023 1:13pm Weight loss acute February 1:13pm Crohn's disease chronic March 03, 2024 1:13pm Low blood pressure chronic 2024 8:49am Postural orthostatic tachycardia syndrome [POTS] inactive Davion 2024 8:49am Postural orthostatic tachycardia syndrome [facility]] [facility] 2:52[facility] History of thyroid cancer deleted March 26, 2024 2:52pm CKD (chronic kidney disease) chronic April 10, 2024 8:48am Crohn's disease chronic March 142024 8:48am Low blood pressure chronic 2024 8:48am POTS (postural orthostatic tachycardia syndrome) chronic April 102024 8:48am Celiac disease acute May 13, 2024 4:55pm Hyponatremia acute May 13, 4:55pm CKD (chronic kidney disease) chronic May 13, 2024 4:55pm Crohn's disease chronic May 4:55pm POTS (postural orthostatic tachycardia syndrome) chronic May 13, 2024 4:55pm Metabolic acidosis inactive May 13, 2024 4:55pm Pharyngitis inactive May 13 4:55pm Crohn's disease acute May 8:52am Chronic diarrhea chronic May 8:52am [facility] Work Phone: 1(671) 416-665312-12-2024 Evaluation note* Diagnosis Onset Date Resolution Status Admit Date Acute upper respiratory infection resolved February 20, 1:30pm Celiac disease acute February 102023 1:13pm Weight loss acute February 1:13pm Crohn's disease chronic March 03, 2024 1:13pm Low blood pressure chronic 2024 8:49am Postural orthostatic tachycardia syndrome [POTS] inactive Davion 2024 8:49am Postural orthostatic tachycardia syndrome [POTS] [facility] 20[facility] 2:52pm History of thyroid cancer deleted March 26, 2024 2:52pm CKD (chronic kidney disease) chronic April 10, 2024 8:48am Crohn's disease chronic March 142024 8:48am Low blood pressure chronic 2024 8:48am POTS (postural orthostatic tachycardia syndrome) chronic April 102024 8:48am Celiac disease acute May 13, 2024 4:55pm Hyponatremia acute March 4th, 2 025 4:55pm CKD (chronic kidney disease) chronic May 13, 2024 4:55pm Crohn's disease chronic May 4:55pm POTS (postural orthostatic tachycardia syndrome) chronic May 13, 2024 4:55pm Metabolic acidosis inactive May 13, 2024 4:55pm Pharyngitis inactive May 13 4:55pm Crohn's disease acute May 8:52am Chronic diarrhea may 8:52am Electrolyte abnormality acute 2024 7:47am Chronic diarrhea chronic May 282024 7:47am POTS (postural orthostatic tachycardia syndrome) chronic May 7:47am Adrenal insufficiency chronic May 9:30am Low blood pressure chronic June 03, 2024 9:30am Osteoporosis chronic June 03, 2024 9:30am Thyroid cancer chronic May 9:30am [facility] Work Phone: 1(219) 727-453209-03-2024 NoteHNO ID: [id number] Author: ALETA VELOZ MD Service: ? Author Type: Physician Type: Progress Notes Filed: 11/13/2023 12:22 Note Text: Philippe Rg is a 37 year old female who presented for hook and eye sewing machine operator ultrasound today. Encounter Diagnosis ICD-10-CM 1. Ovarian cyst, left N83.202 Please see report under imaging tab. Aleta Veloz MD November 13, 2023 11:06 [facility]09-03-2024 History of Present illness Narrative* Aleta Veloz MD - 11/13/2023 11:06 AM EDT Philippe Rg is a 37 year old female who presented for hook and eye sewing machine operator ultrasound today. Encounter Diagnosis ICD-10-CM 1. Ovarian cyst, left N83.202 Please see report under imaging tab. Aleta Veloz MD November 13, 2023 11:06 AM documented in this encounterHenry [facility] Hospital08-29-2024 NoteHNO ID: [id number] Author: PHILIPPE WALLACE APRN.CNP Service: ? Author Type: Nurse Practitioner Type: Progress Notes Filed: 11/08/2023 16:17 Note Text: Vacuum Filter Operator offered: Patient declines. Philippe Rg is a 37 year old female who presents for problem visit follow [facility]PI: Went to ER as she [...] Ectopic0 Multiple0 Live Births0 Comment: Surrogate-1 child Lining Inserter History LMP: 05/28/2023, Having periods Age at Menarche: Age at First : Age at Menopause: Lining Inserter History Comments: Sexual Activity: Yes; Male Contraception: None PAST MEDICAL HISTORY No date: Anemia 04/04/2012: Attention to ileostomy (HCC) 03/2016: Cholelithiasis 09/07/2010, 08/04/2010: CRBSI (catheter-related bloodstream infection) Comment: (yeast/GPC, lactobacillus casei) Dx age 12: Crohn's disease ([facility]) Comment: Dr. Maier-GI No date: Hyponatremia 05/14/2012: Non-traumatic compression fracture of vertebral column ([facility]) 04/29/2020: Nontoxic single thyroid nodule [...] status: Never Smokeless tobacco: (more content not included)...[facility] 11-08-2023 History of Present illness Narrative* FredericPhilippe pitts APRN.[facility] - 11/08/2023 3:00 PM EDT Vacuum Filter Operator offered: Patient declines. Philippe Rg is a 37 year old female who presents for problem visit follow up from transvaginal ultrasound done at primary care, [facility]. HPI: Went to ER as she [...] Ectopic0 Multiple0 Live Births0 Comment: Surrogate-1 child Lining Inserter History LMP: 05/28/2023, Having periods Age at Menarche: Age at First : Age at Menopause: Lining Inserter History Comments: Sexual Activity: Yes; Male Contraception: None PAST MEDICAL HISTORY No date: Anemia 04/04/2012: Attention to ileostomy (HCC) 03/2016: Cholelithiasis 09/07/2010, 08/04/2010: CRBSI (catheter-related bloodstream infection) Comment: (yeast/GPC, lactobacillus casei) Dx age 12: Crohn's disease (HCC) Comment: Dr. Maier-GI No date: Hyponatremia 05/14/2012: Non-traumatic compression fracture of vertebral column ([facility]) 04/29/2020: Nontoxic single thyroid nodule [...] Assessed 05/29/2023 REVIEW OF SYSTEMS Expanded ROS: LIFE SUPPORT TECHNICIAN: + left lower pelvic pain Allergies and [...] Level: 4 - Moderate documented in this encounterHenry [facility]03-19-2024 History of Present illness Narrative* Caren Houser MD - 05/29/2023 1:10 PM EDT Vacuum Filter Operator offered: Patient declines. Philippe Rg is a [...] Ectopic0 Multiple0 Live Births0 Comment: Surrogate-1 child Lining Inserter History LMP: 10/18/2021, Having periods Age at Menarche: Age at First : Age at Menopause: Lining Inserter History Comments: Sexual Activity: Yes; Male Contraception: [...] changes, redness or skin retraction. Expanded ROS: LIFE SUPPORT TECHNICIAN: Negative for abnormal vaginal bleeding, abnormal vaginal [...] Decision Making Level: 4 - Moderate Caren Ospina MD documented in this encounterHenry [facility]08-18-2023 Miscellaneous Notes* Telephone Encounter - Tra [...] occurred Last encounter Visit on 04/12/2021 (with Eldia Franklin) Follow-up evaluation has not been established [...] appt. Will need appt documented in this encounterHenry [facility]11-10-2022 Miscellaneous Notes* Telephone Encounter - Julia Hubbard MD - 01/19/2022 8:36 AM EST Please schedule follow up appointment with Horace Hobson or Dr Lewis. documented in this encounterHenry [facility]11-10-2022 Evaluation note* Diagnosis Stage 3 chronic kidney disease, unspecified whether stage 3a or 3b CKD (HCC)- Primary Vitamin D deficiency Unspecified vitamin D deficiency documented in this encounter [facility] [facility] History of Present illness Narrative* Vicky Mayfield APRN.DETAIL SUPERVISOR - 01/18/2022 8:07 AM EST CC: Patient [...] Patient agreeable to treatment plan. Vicky Mayfield APRN.CNP documented in this encounterHenry [facility]08-22-[facility]22 Miscellaneous Notes* Telephone Encounter - Meryl [...] RENETTA SOTOMAYOR Pharmacy Information Pharmacy Address Telephone [facility] [phone] [place] [address] * Telephone Encounter - Renetta Sotomayor APRN.CNP - 10/31/2021 10:38 AM EDT +yeast, per JERAD notes Terzol cream sent to pharmacy. Renetta Sotomayor APRN.CNP documented in this encounterHenry County Hospital08-17-2022 Miscellaneous Notes* Addendum Note - Magda [...] PM Modules accepted: Orders documented in this encounterHenry County Hospital08-17-2022 Instructions* Patient Instructions* Magda Lnidsay APRN.CNM - 10/26/2021 2:53 PM EDT Vasectomy with [facility] Apply steroid cream twice a day for 2 weeks Then once a day for 4 weeks Then every other day for 4 weeks Then twice weekly for 2 weeks After that can use over the counter hydrocortisone cream for discomfort. If yeast can use vaginal or oral documented in this encounterHenry County Hospital08-17-2022 History of Present illness Narrative* Magda Lindsay APRN.CNM - 10/26/2021 2:27 PM EDT Philippe is a 35 year old who presents for an annual gynecologic exam without complaints. Using temovate for spongiotic dermatitis. Having improvement but still present. Menses: cycles every 8/9/22 days and 30 days of flow. Contraception: condoms and withdrawal HPV vaccine: No Last Pap: 10/01/2020 normal HPV: 10/01/2020 negative History of abnormal pap: No Last mammogram: never Sexually active: Yes Time with current partner: , current partner x 2016 Pain with intercourse: Pain is external due to irritation Postcoital bleeding: No Exercise: Busy with toddler, walking Diet: Restrictive diet due to GI Seatbelt use: Yes OB History T0 L0 SAB2 IAB0 Ectopic0 Multiple0 Live Births0 Comment: Surrogate-1 child Lining Inserter History LMP: 09/20/2021, Having periods Age at Menarche: Age at First : Age at Menopause: Lining Inserter History Comments: Sexual Activity: Yes; Male Contraception: [...] external genitalia normal, normal Bartholin's glands, urethra, [place]'s glands, no vulvar lesions, no cervical lesions, [...] needed Magda Lindsay APRN.CNM documented in this encounterHenry County Hospital08-06-2022 Miscellaneous Notes* Telephone Encounter - Alo [...] follow up around 08/05/21 documented in this encounterHenry County Hospital07-18-2022 Instructions* Patient Instructions* Magda Lindsay APRN.[facility] - 09/26/2021 2:03 PM EDT .Guidelines for [...] Brands that have been helpful are the Fougera brand, [employer] brand, Rugby brand, or [employer] brand. DO NOT DOUCHE. Baking soda soaks [...] of sexually transmitted disease. documented in this encounterHenry County Hospital07-18-2022 History of Present illness Narrative* Magda [...] Ectopic0 Multiple0 Live Births0 Comment: Surrogate-1 child Lining Inserter History LMP: 09/20/2021, Having periods Age at Menarche: Age at First : Age at Menopause: Lining Inserter History Comments: Sexual Activity: Yes; Male Contraception: [...] Reported on 09/26/2021 ) Norethindrone Acet-Ethinyl Est (JUNEL ,) 1-20 mg-mcg per tablet Take one active [...] external genitalia normal, normal Bartholin's glands, urethra, [place]'s glands, no vulvar lesions, no cervical lesions, [...] ICD10: L29.2 - SURGICAL PATHOLOGY Magda Lindsay APRN.[facility] Philippe Rg is a 35 year old [...] 1 mL 1% lidocaine with 1:100,000 epi.3mm [place] punch used to biopsy region. HEMOSTASIS: Obtained with silver nitrate Procedure Summary: Patient tolerated procedure well. ASSESSMENT: PLAN: Specimens labeled and sent to Pathology. Will notify patient of results in 1-2 weeks. Will follow up to discuss results. Treat with temovate at this time. Follow up in 4 weeks for annual exam Magda Lindsay APRN.CNM documented in this encounterHenry County Hospital06-01-2022 Miscellaneous Notes* Telephone Encounter - Priyanka [...] from Payor by: N/A Email Sent to: TEL Priyanka Freeman, Melva Gomes Melendez Requested Clinicals/Information Sent: N/A documented in this encounterHenry County Hospital03-29-2022 Miscellaneous Notes* Telephone Encounter - Majo [...] addressed. Majo Solis RN documented in this encounterHenry County Hospital03-28-2022 History of Present illness Narrative* Darin Cormier MD - 06/06/2021 4:15 PM EDT TELEPHONE FOLLOW-UP ENCOUNTER Philippe Rg [phone] [id number] has requested a telemedicine follow-up visit. Philippe Rg verbalized informed consent to proceed with the [...] SURGICAL HISTORY Procedure Laterality Date CHOLECYSTECTOMY 04/28/2016 Dr.Wanek COLECTOMY TOTAL WO ANAST 10/30/2003 resection of [...] AM). 90 tablet 3 Norethindrone Acet-Ethinyl Est (JUNE,) 1-20 mg-mcg per tablet Take one active [...] Add Vanco to Allergy List - Rash No physical [...] Abs Lymph 1.00 - 4.00 k/uL 1.73 Randall% % 7.0 Abs Randall <0.87 k/uL 1.52 (H) Eosin% % 1.0 Abs Eosin <0.46 k/uL 0.22 Baso% % 0.0 Abs Baso <0.11 k/uL 0.00 Newberry% % 1.0 Myelo% % 7.0 Left Shift [...] had COVID + booster, Tdap (2019), Pneumovax (2009) and HBV (2018) - Skin- has been following regularly with Dermatology- advised that she [facility]- has been on vit D [...] 06, 2021 4:29 PM documented in this encounterHenry County Hospital02-18-2021 History of Past illness Narrative* Problem [...] well controlled symptoms who is admitted from [facility] ED with nausea, vomiting, abdominal painx 1 day Perianal abscess 09/04/2011 04/24/2016 Regional enteritis of small intestine 06/08/2010 05/21/2012 Anemia 04/24/2016 Overview: offered oral iron to patient and was told she could not tolerate. will hold on transfusion today documented as of this encounter (statuses as of 06/07/2021) [facility] History of Past illness Narrative* Problem [...] well controlled symptoms who is admitted from [facility] ED with nausea, vomiting, abdominal painx 1 day Perianal abscess 09/04/2011 04/24/2016 Regional enteritis of small intestine 06/08/2010 05/21/2012 Anemia 04/24/2016 Overview: offered oral iron to patient and was told she could not tolerate. will hold on transfusion today documented as of this encounter (statuses as of 06/07/2021) [facility] History of Past illness Narrative* Problem [...] well controlled symptoms who is admitted from [facility] ED with nausea, vomiting, abdominal painx 1 day Perianal abscess 09/04/2011 04/24/2016 Regional enteritis of small intestine 06/08/2010 05/21/2012 Anemia 04/24/2016 Overview: offered oral iron to patient and was told she could not tolerate. will hold on transfusion today documented as of this encounter (statuses as of 08/10/2021) [facility] History of Past illness Narrative* Problem [...] well controlled symptoms who is admitted from [facility] ED with nausea, vomiting, abdominal painx 1 day Perianal abscess 09/04/2011 04/24/2016 Regional enteritis of small intestine 06/08/2010 05/21/2012 Anemia 04/24/2016 Overview: offered oral iron to patient and was told she could not tolerate. will hold on transfusion today documented as of this encounter (statuses as of 09/26/2021) [facility] History of Past illness Narrative* Problem [...] well controlled symptoms who is admitted from [facility] ED with nausea, vomiting, abdominal painx 1 day Perianal abscess 09/04/2011 04/24/2016 Regional enteritis of small intestine 06/08/2010 05/21/2012 Anemia 04/24/2016 Overview: offered oral iron to patient and was told she could not tolerate. will hold on transfusion today documented as of this encounter (statuses as of 09/29/2021) [facility] History of Past illness Narrative* Problem [...] well controlled symptoms who is admitted from [facility] ED with nausea, vomiting, abdominal painx 1 day Perianal abscess 09/04/2011 04/24/2016 Regional enteritis of small intestine 06/08/2010 05/21/2012 Anemia 04/24/2016 Overview: offered oral iron to patient and was told she could not tolerate. will hold on transfusion today documented as of this encounter (statuses as of 10/17/2021) [facility] History of Past illness Narrative* Problem [...] well controlled symptoms who is admitted from [facility] ED with nausea, vomiting, abdominal painx 1 day Perianal abscess 09/04/2011 04/24/2016 Regional enteritis of small intestine 06/08/2010 05/21/2012 Anemia 04/24/2016 Overview: offered oral iron to patient and was told she could not tolerate. will hold on transfusion today documented as of this encounter (statuses as of 10/26/2021) [facility] History of Past illness Narrative* Problem [...] well controlled symptoms who is admitted from [facility] ED with nausea, vomiting, abdominal painx 1 day Perianal abscess 09/04/2011 04/24/2016 Regional enteritis of small intestine 06/08/2010 05/21/2012 Anemia 04/24/2016 Overview: offered oral iron to patient and was told she could not tolerate. will hold on transfusion today documented as of this encounter (statuses as of 10/31/2021) [facility] of Past illness Narrative* Problem [...] well controlled symptoms who is admitted from [facility] ED with nausea, vomiting, abdominal painx 1 day Perianal abscess 09/04/2011 04/24/2016 Regional enteritis of small intestine 06/08/2010 05/21/2012 Anemia 04/24/2016 Overview: offered oral iron to patient and was told she could not tolerate. will hold on transfusion today documented as of this encounter (statuses as of 01/18/2022) [facility] History of Past illness Narrative* Problem [...] well controlled symptoms who is admitted from [facility] ED with nausea, vomiting, abdominal painx 1 day Perianal abscess 09/04/2011 04/24/2016 Regional enteritis of small intestine 06/08/2010 05/21/2012 Anemia 04/24/2016 Overview: offered oral iron to patient and was told she could not tolerate. will hold on transfusion today documented as of this encounter (statuses as of 01/19/2022) [facility] History of Past illness Narrative* Problem [...] well controlled symptoms who is admitted from [facility] ED with nausea, vomiting, abdominal painx 1 day Perianal abscess 09/04/2011 04/24/2016 Regional enteritis of small intestine 06/08/2010 05/21/2012 Anemia 04/24/2016 Overview: offered oral iron to patient and was told she could not tolerate. will hold on transfusion today documented as of this encounter (statuses as of 10/27/2022) [facility] History of Past illness Narrative* Problem [...] well controlled symptoms who is admitted from [facility] ED with nausea, vomiting, abdominal painx 1 day Perianal abscess 09/04/2011 04/24/2016 Regional enteritis of small intestine 06/08/2010 05/21/2012 Anemia 04/24/2016 Overview: offered oral iron to patient and was told she could not tolerate. will hold on transfusion today documented as of this encounter (statuses as of 05/29/2023) [facility] Procedure note* Lisy Barajas (Estee)Estee - 03/15/2020 12:30 PM EST Radiology Service [...] Estee Doty March 15, 2020 12:48 PM [facility] Procedure note* Lisy Barajas Tech (Tech) [...] 15, 2020 12:48 PM documented in this encounterHenry County HospitalEvaluation note* Diagnosis Crohn's disease of small and large intestines with complication (HCC)- Primary documented in this encounter [facility]* Diagnosis Hypovitaminosis D- Primary Unspecified vitamin D deficiency documented in this encounter [facility] noteNo assessment information availableWMercy Health St. [facility] Work Phone: Evaluation note* Diagnosis Vulvar itching- Primary Pruritus of genital organs Vaginal itching Pruritus of genital organs documented in this encounter [facility]* Diagnosis Encounter for gynecological examination (general) (routine) without abnormal findings- Primary Vaginal discharge Leukorrhea, not specified as infective Vulvar itching Pruritus of genital organs Spongiotic dermatitis Contact dermatitis and other eczema, due to unspecified cause control counseling General counseling for initiation of other contraceptive measures documented in this encounter [facility]* Diagnosis Urinary frequency- Primary Burning with urination Dysuria documented in this encounter [facility]* Diagnosis Vaginal itching- Primary Pruritus of [...] and immunity disorders documented in this encounter [facility]* Diagnosis Pre-op evaluation- Primary Preoperative examination, [...] mass and lump documented in this encounter [facility]* Diagnosis Pre-op evaluation- Primary Preoperative examination, unspecified Nontoxic single thyroid nodule Nontoxic uninodular goiter Crohn's disease of small intestine with other complication (HCC) Attention to ileostomy (HCC) Attention to ileostomy Stage 3 chronic kidney disease, unspecified whether stage 3a or 3b CKD (HCC) Ovarian cyst, left Other and unspecified ovarian cyst documented in this encounter [facility]* Diagnosis Pre-op evaluation- Primary Preoperative examination, unspecified Nontoxic single thyroid nodule Nontoxic uninodular goiter Crohn's disease of small intestine with other complication (HCC) Attention to ileostomy (HCC) Attention to ileostomy Stage 3 chronic kidney disease, unspecified whether stage 3a or 3b CKD (HCC) Ovarian cyst, left- Primary Other and unspecified ovarian cyst documented in this encounter [facility]* Diagnosis Nodule of neck Swelling, mass, or lump in head and neck Pre-op evaluation- Primary Preoperative examination, unspecified Nontoxic single thyroid nodule Nontoxic uninodular goiter Crohn's disease of small intestine with other complication (HCC) Attention to ileostomy (HCC) Attention to ileostomy Stage 3 chronic kidney disease, unspecified whether stage 3a or 3b CKD (HCC) documented in this encounter [facility]* Diagnosis Pre-op evaluation- Primary Preoperative examination, unspecified Nontoxic single thyroid nodule Nontoxic uninodular goiter Crohn's disease of small intestine with other complication (HCC) Attention to ileostomy (HCC) Attention to ileostomy Stage 3 chronic kidney disease, unspecified whether stage 3a or 3b CKD (HCC) Procedure not carried out- Primary Procedure not carried out for other reasons documented in this encounter [facility]* Diagnosis Pre-op evaluation- Primary Preoperative examination, [...] unspecified ovarian cyst documented in this encounter [facility] for referral (narrative)* Diagnostic Procedure Only (Routine) - New Request Specialty Diagnoses / Procedures Referred By Osbaldo malone Referred To Contact [facility] Diagnoses Ovarian cyst, left Procedures PELVIC US WHI US PELVIC NONOBSTETRIC REAL-TIME IMAGE COMPLETE Philippe Wallace APRN.CNP [address] [place] [address] [facility] [address] [place] [id number] Referral ID Status Reason Start Date Expiration Date Visits Requested Visits Authorized [id number] New Request Auto-Generat ed Referral 08/20/2024 11/18/2024 1 1 [facility] for referral (narrative)No reason for referral information availableWMercy Health St. [facility] Work Phone: Reason for visit Narrative* Diagnostic Procedure Only (Routine) - Closed Specialty Diagnoses / Procedures Referred By Contac t Referred To Contact [facility] Diagnoses Ovarian cyst, left Procedures PELVIC US WHI US PELVIC NONOBSTETRIC REAL-TIME IMAGE COMPLETE Philippe Wallace, HIGH SCHOOL SPORTS COACH.DETAIL SUPERVISOR [address] [place] [address] [facility] [address] [place] [address] Referral ID Status Reason Start Date Expiration Date V isits Requested Visits Authorized [id number] Closed Auto-Generate d Referral 11/08/2023 11/07/2024 1 1 [facility] Summary Purpose Family History No Family History Records Found Relationship Condition Age at Onset Recorded Date/T nhi Unknown Family History?- Unknown July 23, 2 019 4:19am Family History?- Unknown July 23, [...] FoundDocuments on File Type Date Recorded Patient Remote Sensing Technician Expl anation Advance Directive(s) Advance Directive(s) 06/04/2021 [...] No September 07, 2021 3:16am Power of Electrical Hardware Engineer No September 07 3:16am Advance Directive Response Recorded Date/ Time Living Will No February 06 6:22pm Power of Electrical Hardware Engineer No February 07, 2024 6:22pm Living Will No March 07 11:31pm Power of Electrical Hardware Engineer No March 07, 2024 11:31pm Living Will No February 28 6:45pm Power of Electrical Hardware Engineer No February 29, 2024 6:45pm Living Will No May 13, 2024 4:30am Power of Electrical Hardware Engineer No May 13 4:30am Advance Directive Response Recorded Date/ Time Living Will No March 07 11:31pm Do you have a Healthcare Power of Electrical Hardware Engineer? No March 07, 2024 11:31pm Living Will No February 28 6:45pm Do you have a Healthcare Power of Electrical Hardware Engineer? No February 29, 2024 6:45pm Living Will No May 13, 2024 4:30am Do you have a Healthcare Power of Electrical Hardware Engineer? No May 13, 2024 4:30am Advance Directive Response Recorded Date/ Time Living Will No May 13, 2024 4:30am Do you have a Healthcare Power of Electrical Hardware Engineer? No May 13, 2024 4:30am Do you have a Healthcare Power of Electrical Hardware Engineer? No August 31, 2024 7:17pm Date Activated Date Inactivated Comments 07/15/2024 3:57 AM 07/16/2024 8:45 PM Question Answer Comments Full Code Order Discussed With: Patient Procedure Findings Note HNO ID: [id number] Author: Melva Lezama Service: ? Author Type: Nurse Housekeeping Director Type: Anesthesia Procedure Notes Filed: 05/28/2020 7:34 AM Note Text: ANESTHESIOLOGY PROCEDURE NOTE Airway General Information Procedure Start Time/Medication Administration: 05/28/2020 7:23 AM Patient location during procedure: OR Timeout Performed Pre-procedure: timeout performed Consent Obtained: Yes Patient identity confirmed: arm band and patient Staffing ENGINEERING LABORATORY TECHNICIAN: Andree Modi Performed by: ENGINEERING LABORATORY TECHNICIAN Indications and Patient Condition Preoxygenated: yes Patient [...] (more content not included)... Note HNO ID: [id number] Author: Tyrell Simmons Service: General Surgery Author Type: Physician Type: Brief Op Note Filed: 05/28/2020 8:12 AM Note Text: BRIEF OPERATIVE / PROCEDURE NOTE LOG ID: [id number] SURGERY/PROCEDURE DATE: 05/28/2020 INCISION/PROCEDURE START TIME: 7:31 AM INCISION CLOSE/PROCEDURE END TIME: 8:01 AM SURGEON(S)/PROCEDURALIST(S) AND EMPLOYEE RELATIONS ASSISTANT(S): Surgeon(s) and Role: * Elida Franklin - [...] Date COUGH February 07, 2024 3:27pm ACUTE [facility] FU-EST WITH [facility] February 092023 1:30pm palpitations February 29, 2024 5:05pm 1 Y FU March 03, 2024 1:13pm PALPITATIONS March 07, 2024 9:23pm ACUTE-HR/BP FU March 21, 2024 8 :49am Tachycardia, unspecified March 25, 12:26pm TACHY March 25, 2024 1 2:52pm [...] 8:52 am Chief Complaint Admit Date ACUTE [facility] FU-EST WITH [facility] February 092023 1:30pm palpitations [...] Thyroid cancer June 03, 2024 9:3 0am Chief Complaint Admit Date sore throat, weight loss May 13, 2024 1:37am PHARYNGITIS. HYPONATREMIA May 13 1:53am PHARYNGITIS. HYPONATREMIA May 14 3:43pm Follow Up May 15, 2024 8:52 am [facility] FU May 28, 2024 7:4 7am Thyroid June 03, 2024 9:3 0am NAUSEA August 31, 2024 6:51 pm Reason for Visit Admit Date Celiac disease May 13, 2024 1:53 am Hyponatremia May 13, 2024 1:53 am CKD (chronic kidney disease) May 13, 2024 1:53am Crohn's disease May 13, 2024 1:53 am POTS (postural orthostatic tachycardia s yndrome) May 13, 2024 1:53am Metabolic acidosis May 13, 2024 1:53 am Pharyngitis May 13, 2024 1:53 am Crohn's disease May 15, 2024 8:52 am [...] Referral Specialty Diagnoses / Procedures Referred By Osbaldo malone Referred To Contact [facility] Diagnoses Other intra-abdominal and pelvic swelling, mass and lump Procedures MRI FEMALE PELVIS WO/W IVCON MRI PELVIS W/O & W/CONTRAST MATERIAL Philippe Wallace APRN.CNP [address] [place] [address] [place] [id number] Referral ID Status Reason Start Date Expiration Date Visits Requested Visits Authorized [id number] New Request Auto-Generat ed Referral 11/08/2023 12/07/2024 1 1 Specialty Diagnoses / Procedures Referred By Osbaldo malone Referred To [facility] Diagnoses Ovarian cyst, left Procedures PELVIC US WHI US PELVIC NONOBSTETRIC REAL-TIME IMAGE COMPLETE Philippe Wallace APRN.CNP [address] [place] [address] [facility] [address] [place] [address] Referral ID Status Reason Start Date Expiration Date Visits Requested Visits Authorized [id number] Authorized Auto-Generat ed Referral 11/08/2023 11/07/2024 1 1 Additional Source Comments INFORMATION SOURCE (unrecogn ized section and content) DATE CREATED AUTHOR 09/04/2017 [facility] DATE CREATED AUTHOR AUTHOR'S ORGANIZ ATION 06/01/2020 [facility] DATE CREATED AUTHOR AUTHOR'S ORGANIZ ATION 08/10/2024 [facility] DATE CREATED AUTHOR AUTHOR'S ORGANIZ ATION 09/02/2024 [facility] Source Comments (unrecognize d section and content) In the event this informatio n is protected by the Federal Confidentiality of Alcohol and Drug Abuse Patient Records regulations: The Federal rules restrict any use of the information to criminally investigate or prosecute any alcohol or drug abuse patient.[facility] HospitalIn the event this information is protected by the Federal Confidentiality of Alcohol and Drug Abuse Patient Records regulations: The Federal rules restrict any use of the information to criminally investigate or prosecute any alcohol or drug abuse patient.[facility] HospitalIn the event this information is protected by the Federal Confidentiality of Alcohol and Drug Abuse Patient Records regulations: The Federal rules restrict any use of the information to criminally investigate or prosecute any alcohol or drug abuse patient.[facility] HospitalIn the event this information is protected by the Federal Confidentiality of Alcohol and Drug Abuse Patient Records regulations: The Federal rules restrict any use of the information to criminally investigate or prosecute any alcohol or drug abuse patient.[facility] HospitalIn the event this information is protected by the Federal Confidentiality of Alcohol and Drug Abuse Patient Records regulations: The Federal rules restrict any use of the information to criminally investigate or prosecute any alcohol or drug abuse patient.[facility] HospitalIn the event this information is protected by the Federal Confidentiality of Alcohol and Drug Abuse Patient Records regulations: The Federal rules restrict any use of the information to criminally investigate or prosecute any alcohol or drug abuse patient.[facility] HospitalIn the event this information is protected by the Federal Confidentiality of Alcohol and Drug Abuse Patient Records regulations: The Federal rules restrict any use of the information to criminally investigate or prosecute any alcohol or drug abuse patient.[facility] HospitalIn the event this information is protected by the Federal Confidentiality of Alcohol and Drug Abuse Patient Records regulations: The Federal rules restrict any use of the information to criminally investigate or prosecute any alcohol or drug abuse patient.[facility] HospitalIn the event this information is protected by the Federal Confidentiality of Alcohol and Drug Abuse Patient Records regulations: The Federal rules restrict any use of the information to criminally investigate or prosecute any alcohol or drug abuse patient.[facility] HospitalIn the event this information is protected by the Federal Confidentiality of Alcohol and Drug Abuse Patient Records regulations: The Federal rules restrict any use of the information to criminally investigate or prosecute any alcohol or drug abuse patient.[facility] HospitalIn the event this information is protected by the Federal Confidentiality of Alcohol and Drug Abuse Patient Records regulations: The Federal rules restrict any use of the information to criminally investigate or prosecute any alcohol or drug abuse patient.[facility] HospitalIn the event this information is protected by the Federal Confidentiality of Alcohol and Drug Abuse Patient Records regulations: The Federal rules restrict any use of the information to criminally investigate or prosecute any alcohol or drug abuse patient.[facility] HospitalIn the event this information is protected by the Federal Confidentiality of Alcohol and Drug Abuse Patient Records regulations: The Federal rules restrict any use of the information to criminally investigate or prosecute any alcohol or drug abuse patient.[facility] HospitalIn the event this information is protected by the Federal Confidentiality of Alcohol and Drug Abuse Patient Records regulations: The Federal rules restrict any use of the information to criminally investigate or prosecute any alcohol or drug abuse patient.[facility] HospitalIn the event this information is protected by the Federal Confidentiality of Alcohol and Drug Abuse Patient Records regulations: The Federal rules restrict any use of the information to criminally investigate or prosecute any alcohol or drug abuse patient.[facility] HospitalIn the event this information is protected by the Federal Confidentiality of Alcohol and Drug Abuse Patient Records regulations: The Federal rules restrict any use of the information to criminally investigate or prosecute any alcohol or drug abuse patient.[facility] HospitalIn the event this information is protected by the Federal Confidentiality of Alcohol and Drug Abuse Patient Records regulations: The Federal rules restrict any use of the information to criminally investigate or prosecute any alcohol or drug abuse patient.[facility] HospitalIn the event this information is protected by the Federal Confidentiality of Alcohol and Drug Abuse Patient Records regulations: The Federal rules restrict any use of the information to criminally investigate or prosecute any alcohol or drug abuse patient.[facility] HospitalIn the event this information is protected by the Federal Confidentiality of Alcohol and Drug Abuse Patient Records regulations: The Federal rules restrict any use of the information to criminally investigate or prosecute any alcohol or drug abuse patient.[facility] Reason for Visit (unrecogniz ed section [...] Care Teams (unrecognized sec tion and content) Team Status: Active Member Role Status Dates SHASTA Norris Primary Care Provider Active Team Status: Active Member Role Status Dates SHASTA Norris Primary Care Provider Active Start: May 13, 2024 Dr. Rudi Chiu MD Emergency Provider Active Sta rt: May 13, 2024 Dr. Josiah Wilkins MD Attending Provider Active Start: May 13, 2024 Team Status: Inactive Member Role Status Dates SHASTA Norris Primary Care Provider Active Start: May 13, [...] SHASTA Norris Primary Care Provider Active Start: May 14, [...] 15, 2024 End: May 15, 2024 Antonio Roman PA, PA Referring Provider Active St art: May 15, 2024 End: May 15, 2024 Ashley Caruso INVENTORY CLERK-C Attending Provider Active Start: May 15, 2024 End: May 15, 2024 Team Status: Inactive Member Role Status Dates Antonio Roman PA, PA Primary Care Provider Active Start: May 15, 2024 End: May 15, 2024 Ashley Caruso INVENTORY CLERK-C Attending Provider Active Start: May 15, 2024 End: May 15, 2024 Ashley Caruso INVENTORY CLERK-C Referring Provider Active Start: May 15, 2024 End: May 15, 2024 Team Status: Inactive Member Role Status Dates Antonio Roman PA, PA Primary Care Provider Active Start: May 28, 2024 End: May 28, 2024 Antonio Roman PA, PA Attending Provider Active St art: May 28, 2024 End: May 28, 2024 Antonio Roman PA, PA Referring Provider Active St art: May 28, 2024 End: May 28, 2024 Team Status: Inactive Member Role Status Dates Antonio Roman PA, PA Primary Care Provider Active Start: June 03, 2024 End: June 03, 2024 Antonio Roman PA, PA Referring Provider Active St art: June 03, 2024 End: June 03, 2024 Dr. Cj Mcpherson MD Attending Provider Active Sta rt: June 03, 2024 End: June 03, 2024 Team Status: Inactive Member Role Status Dates Antonio Roman PA, PA Primary Care Provider Active Start: June 03, 2024 End: June 03, 2024 Antonio Roman PA, PA Attending Provider Active St art: June 03, 2024 End: June 03, 2024 Antonio Roman PA, PA Referring Provider Active St art: June 03, 2024 End: June 03, 2024 Team Status: Inactive Member Role Status Dates SHASTA Norris Primary Care Provider Active Start: August 31, 2024 End: August 31, 2024 Dr. Rudi Chiu MD Emergency Provider Active Sta rt: August 31, 2024 End: August 31, 2024 Work Distributor Relationship Specialty Start Date End Date Alba Diaz MD [address] [place] [address] PCP - General Family Practice 03/10/19 Work Distributor Relationship Specialty Start Date End Date Alba Diaz MD [address] [place] [address] PCP - General Family Practice 03/10/19 Work Distributor Relationship Specialty Start Date End Date Alba Diaz MD [address] [place] [address] PCP - General Family Practice 03/10/19 Work Distributor Relationship Specialty Start Date End Date Alba Diaz MD [address] [place] [address] PCP - General Family Practice 03/10/19 Work Distributor Relationship Specialty Start Date End Date Alba Diaz MD [address] [place] [address] PCP - General Family Practice 03/10/19 Work Distributor Relationship Specialty Start Date End Date Alba Diaz MD [address] [place] [address] PCP - General Family Practice 03/10/19 Work Distributor Relationship Specialty Start Date End Date Alba Diaz MD [address] [place] [address] PCP - General Family Medicine 03/10/19 Work Distributor Relationship Specialty Start Date End Date Alba Diaz MD [address] [place] [address] PCP - General Family Medicine 03/10/19 Work Distributor Relationship Specialty Start Date End Date Alba Diaz MD [address] [facility] [place] [address] PCP - General Family Medicine 03/10/19 Work Distributor Relationship Specialty Start Date End Date Alba Diaz MD [address] [place] [address] PCP - General Family Medicine 03/10/19 PodlogarKatlyn APRN.DETAIL SUPERVISOR [address] [place] [address] Family Medicine 05/14/23 Work Distributor Relationship Specialty Start Date End Date Alba Diaz MD [address] [place] [address] PCP - General Family Medicine 03/10/19 PodlogarKatlyn APRN.DETAIL SUPERVISOR [address] [place] [address] Family Medicine 05/14/23 Work Distributor Relationship Specialty Start Date End Date Alba Diaz MD [address] [place] [address] PCP - General Family Medicine 03/10/19 PodlogarKatlyn APRN.DETAIL SUPERVISOR [address] [place] [address] Family Medicine 05/14/23 Work Distributor Relationship Specialty Start Date End Date Alba Diaz MD [address] [place] [address] PCP - General Family Medicine 03/10/19 PodlogarKatlyn APRN.DETAIL SUPERVISOR [address] [place] [address] Family Medicine 05/14/23 Work Distributor Relationship Specialty Start Date End Date Alba Diaz MD [address] [place] [address] PCP - General Family Medicine 03/10/19 Work Distributor Relationship Specialty Start Date End Date Alba Diaz MD [address] [place] [address] PCP - General Family Medicine 03/10/19 PodlogarKatlyn APRN.DETAIL SUPERVISOR [address] [place] [address] Family Medicine 05/14/23 Podlogar, Katlyn, HIGH SCHOOL SPORTS COACH.DETAIL SUPERVISOR [address] [place] [address] [facility] 02/16/24 Team Status: Inactive Member Role Status Dates [...] February 21, 2024 End: February 21, 2024 Antonio Wayt PA, PA Attending Provider Active St art: February 21, 2024 End: February 21, 2024 Team Status: Inactive Member Role Status Dates No Primary Care Physician Primary Care Provider Active Start: February 21, 2024 End: February 21, 2024 Antonio Roman PA, PA Attending Provider Active St art: February 21, 2024 End: February 21, 2024 Antonio Roman PA, PA Referring Provider Active St art: February 21, 2024 End: February 21, 2024 Team Status: Inactive Member Role Status Dates No Primary Care Physician Primary Care Provider Active Start: February 29, 2024 End: February 29, 2024 Dr. Jose Guadalupe Lazo , Attending Provider Active Start: February 29, 2024 [...] March 08, 2024 Dr. Guerrero Fuller , Attending Provider Active Start: March 07, 2024 [...] 21, 2024 End: March 21, 2024 Antonio Wayt PA, PA Referring Provider Active St art: [...] April 10, 2024 End: April 10, 2024 SHASTA Norris Referring Provider Active St art: April 10, 2024 End: April 10, 2024 Team Status: Active Member Role Status Dates SHASTA Norris Primary Care Provider Active Start: April 10, 2024 Dr. Brendon Dave MD Attending Provider Active Start: April 10, 2024 Work Distributor Relationship Specialty Start Date End Date Podlogar, Katlyn HIGH SCHO[employer] SPORTS COACH.DETAIL SUPERVISOR [address] [place] [address] [facility] Medicine 05/14/23 Podlogar, Katlyn, HIGH SCHOOL SPORTS COACH.DETAIL SUPERVISOR [address] [place] [address] [facility] 02/16/24 Leah Ann, HIGH SCHOOL SPORTS COACH.DETAIL SUPERVISOR [address] [place] [address] [facility] 06/02/24 Work Distributor Relationship Specialty Start Date End Date Podlogar, Katlyn, HIGH SCHOOL SPORTS COACH.DETAIL SUPERVISOR [address] [place] [address] Family Medicine 05/14/23 PodlogarKatlyn, HIGH SCHOOL SPORTS COACH.DETAIL SUPERVISOR [address] [place] [address] [facility] 02/16/24 Leah Ann, HIGH SCHOOL SPORTS COACH.DETAIL SUPERVISOR [address] [place], [place] [address] [facility] 06/02/24 Goals (unrecognized section and content) [...] BE BASED ON THE PRIMARY CLINICAL RECORDS. [employer] [facility]. provides no warranty or guarantee of the accuracy or completeness of information in this document.
== END | disposition home or self-care (01) ==
LOC: BIMLAB 12:12
PROVIDERS: PCP Physician Assistant; Referring Provider Emergency Medicine; Visit Provider Emergency Medicine
DX: N17.9 Acute kidney failure, unspecified (principal); E03.9 Hypothyroidism, unspecified
CPT/HCPCS: 36415; 80048